=== PATIENT | female | born 1950 | race Caucasian/White ===

== ENCOUNTER → 2018-06-02 07:58 | Outpatient (CLI) | payer MEDICARE, OTHER, SELFPAY | PROVIDERS: Family Provider Internal Medicine; PCP Internal Medicine; Visit Provider Internal Medicine | DX: S22.008A Other fracture of unspecified thoracic vertebra, initial encounter for closed fracture (principal); S86.9 Injury of unspecified muscle and tendon at lower leg level; M25.562 Pain in left knee; X58.XXXA Exposure to other specified factors, initial encounter; Y93.9 Activity, unspecified; Y92.9 Unspecified place or not applicable; Y99.9 Unspecified external cause status; Z96.642 Presence of left artificial hip joint | CPT/HCPCS: 73700 ==

== ENCOUNTER → 2018-09-14 09:47 | Outpatient (CLI) | payer MEDICARE, OTHER, SELFPAY ==
--- NOTE | 2018-09-14 09:57 | BD_ITS ---
STUDY: DUAL ENERGY X-RAY ABSORPTIOMETRY / DXA REASON FOR EXAM: Female, 68 years old. The patient is postmenopausal. Loss of height. TECHNIQUE: Bone Mineral Density (BMD) measurements of lumbar spine and right hip were obtained. The patient is status post left hip replacement. COMPARISON: Comparison is made with prior study dated September 11, 2016. FINDINGS: Lumbar Spine (L1-L4): g/cm2 (0.911) / T-score (-2.4) / Z-score (-0.8) Findings are suggestive of osteopenia with a high fracture risk. Right Femur Total: g/cm2 (0.595) / T-score (-3.3) / Z-score (-1.9) Right Femoral Neck: g/cm2 (0.606) / T-score (-3.1) / Z-score (-1.5) The T-Scores on the most recent prior examination were: Lumbar Spine (L1-L4): There has been worsening of bone density since the previous examination. Left Femur Total: . Right Femur Total: which represents a worsening of 3.6%. BD/Dexa Bone Density Study IMPRESSION: The patient is considered osteoporotic as outlined below according to World Elvis Organization (WHO) criteria with a high fracture risk. There has been worsening of bone density since the previous examination. Reference Information: The T-score is the number of standard deviations above or below the standard which is normal for young adults at their peak bone mineral density. The World Health Organization (WHO) interprets the T-scores as follows: Above -1 Normal bone density Between -1 and -2.5 Osteopenia Equal to / or below -2.5 Osteoporosis As a practical clinical guideline, osteopenia may be graded as follows: Mild -1 through -1.5 Moderate -1.6 through -2.0 Severe -2.1 through -2.4 The Z-score is the number of standard deviations above or below age-matched controls. A Z-score of less than -1.5 would be considered abnormal. References: 1. NIH Osteoporosis and Related Bone Diseases http://www.osteo.org 2. International Society for Clinical Densitometry http://www.iscd.org 3. National Osteoporosis Foundation http://www.nof.org Electronically Signed: Chin Bell MD at 10:39 EST Tel [phone], Service support ,
== END ==
PROVIDERS: Family Provider Internal Medicine; PCP Internal Medicine; Visit Provider Internal Medicine
DX: Z78.0 Asymptomatic menopausal state (principal); M81.0 Age-related osteoporosis without current pathological fracture; M80.80XD Other osteoporosis with current pathological fracture, unspecified site, subsequent encounter for fracture with routine healing
CPT/HCPCS: 77080

== ENCOUNTER 2018-09-28 14:29 | Observation (INO) | payer MEDICARE, OTHER, SELFPAY ==
[2018-09-28] VITALS (9 sets, daily range): BP systolic 125–190; BP diastolic 72–102; PULSE 69–94; RESP 13–18; TEMP 36.5–36.8; O2SAT 94–99; BMI 29.9; BMI 29.2
--- NOTE | 2018-09-28 14:53 | RAD_ITS ---
STUDY: X-RAY CHEST REASON FOR EXAM: Female, 68 years old. Chest pain. TECHNIQUE: Single AP portable view of the chest. COMPARISON: Comparison is made with prior study dated June 06, 2017. FINDINGS: EKG electrodes are seen. Mild degree of increased linear markings at the lung bases slightly worse on the left side. These are new as compared to prior study and may represent early atelectasis and/or infiltrates. There is no demonstrated pleural abnormality. Normal size heart. Normal mediastinum and craig. Normal visualized pulmonary arteries. There is atherosclerotic tortuosity of the aortic arch and descending thoracic aorta. There is a dextroscoliosis of the thoracic spine. Normal visualized ribs, clavicles, and shoulders. There is no demonstrated abnormality of the visualized soft tissue structures of the upper abdomen. RAD/Chest 1 View (Portable) IMPRESSION: New increased linear markings with areas of confluence in the lower lobes new from prior examination. This is suggestive of atelectasis and/or early infiltrate. Electronically Signed: Chin Bell MD at 15:34 EST Tel [phone], Service support ,
--- NOTE | 2018-09-28 14:53 | EKG12_ITS ---
Test Reason : CP Blood Pressure : / mmHG Vent. Rate : 085 BPM Atrial Rate : 085 BPM P-R Int : 204 ms QRS Dur : 092 ms QT Int : 400 ms P-R-T Axes : 068 -43 044 degrees QTc Int : 476 ms Normal sinus rhythm Left axis deviation Possible Anterolateral infarct , age undetermined Abnormal ECG Confirmed by GOYO CONNELL, STEPHANIE ([id number]), proposal editor MARJORIE COCHRAN ([id number]) on 10/01/2018 1:49:22 PM Referred By: Enrique Lozano Confirmed By:STEPHANIE NANCE MD
--- NOTE | 2018-09-28 14:57 | ED.VISSUMM ---
- ER Visit Summary Date of Service: 09/28/18 Chief Complaint: Chest pain History of Present Illness: The patient is a 68 F who was driving around [address] this afternoon and had sudden onset of tunnel vision, heart racing, chest tightness, and shortness of breath. She pulled over to the side of the road and her symptoms slowly resolved after about 10 minutes. She still feels slightly lightheaded at this time. Past history is significant for hypertension and she was taken off her medications 2 years ago. She also has high cholesterol, GERD, hypothyroidism, kidney stones, and depression. Physical Examination: Vital signs on arrival include blood pressure of 190/98, otherwise unremarkable. At the time of my examination her systolic blood pressures in the low 140s. Head neck examination is normal. Heart is regular rate and rhythm without murmur. Lungs sounds are clear. Abdomen is soft and nontender. Lower extremity examination reveals no calf tenderness or edema. Test Results: EKG is sinus [address] change. CBC and chemistry studies are unremarkable. Urinalysis is normal. Troponin and TSH are both normal. D-dimer is normal at 0.44. Portable chest x-ray shows no increased linear markings in the lower lobes suggestive of atelectasis and/or early infiltrate. Emergency Department Course and Treatment: She is given aspirin and IV fluids. On repeat evaluation patient is resting comfortably. She has had no further episodes while here in the emergency room. Patient does have risk for cardiac disease. I suggested observation overnight for cycling of cardiac enzymes and observation for any arrhythmias. Hospitalist is on page at this time. Treatment Plan: [] Disposition: Admit Impression: Chest pain This note was generated with [employer] dictation software. It may contain incorrect words, spelling, and punctuation that were not noted in review of the chart prior to signing ED Disposition - Plan for ED Patient: Chief Complaint: Chest Pain Referrals: Carmel Goncalves MD [Primary Care Provider] -
[2018-09-28] MEDS: Aspirin 81 MG TAB.CHEW 324 MG PO (15:19)
[2018-09-28] MEDS: 0.9% Normal Saline 1,000 ML 150 ML IV (15:19)
[2018-09-28 15:29] LABS: Absolute Lymphocyte Count 2.03 X10^3/ul (0.83-4.51); Basophil# 0.03 X10^3/uL; Basophil% 0.3 % (0-1); Eosinophils% 1.1 % (0-5); Hematocrit 38.9 % (37-47); Hemoglobin 12.2 g/dl (12.0-15.0); Lymphocyte # 2.03 X10^3/ul (4.0); Lymphocyte % 23.3 % (19-41); Mean Corp Hgb Conc 31.4 g/gl (32-36); Mean Corpuscular Volume 89.2 fL (81-99); Mean Platelet Vol. 9.4 fl (6.2-12.0); Monocyte# 0.54 X10^3/uL; Monocyte% 6.2 % (0-10); Neutrophil # 6.02 X10^3/uL (2.7-7.7); Neutrophil % 69.1 % (47-70); POSITIVE COUNT NO; POSITIVE DIFFERENTIAL NO; POSITIVE MORPHOLOGY NO; Platelet Count 393 K/mm3 (150-450); RBC Distribution Width CV 13.7 % (11.6-14.6); RBC Distribution Width SD 44.9 fl (35.1-43.9); Red Blood Count 4.36 M/mm3 (4.2-5.4); White Blood Count 8.7 K/mm3 (4.4-11.0)
[2018-09-28 15:41] LABS: Bacteria 0 SEEN /hpf (None Seen); Mucous, Urine 0 SEEN /hpf (<or=2+); Red Blood Cells-Urine 0 SEEN /hpf (0-5); Squamous Epithelial Cells - UA 0 SEEN /hpf (5-10); White Blood Cells 0 SEEN /hpf (0-5)
[2018-09-28 15:43] LABS: D-Dimer Quantitative (DVT/PE) 0.44 FEU/ug/m (0.27-0.49)
[2018-09-28 15:44] LABS: Color, Urine Yellow (Yellow); Glucose, Dipstick Normal (Normal); Ketone-Dipstick Negative (Negative); Leukocyte Esterase-Dipstick Negative /ul (Negative); Nitrite-Dipstick Negative (Negative); Occult Blood-Urine Negative /ul (Negative); Protein-Dipstick Negative (Negative); Specific Gravity, Urine 1.005 (1.002-1.030); Urine Bilirubin Dipstick Negative (Negative); Urine Clarity Clear (Clear); Urine Urobilinogen Normal (Normal)
[2018-09-28 15:53] LABS: Anion Gap 8 (5-15); BUN 14 mg/dL (7-18); BUN/Creat Ratio 14.1 RATIO (10-20); Calcium,Total 8.9 mg/dL (8.5-10.1); Chloride 105 mmol/L (98-107); Creatinine, Serum 0.99 mg/dL (0.55-1.02); EST Glomerular Filtration Rate 59 mL/min (>60); Est Glom Filt Rate - Afr Amer 71 mL/min (>60); Estimated Creatinine Clearance 39.07 ml/min; Glucose 91 mg/dL (74-106); Potassium 3.5 mmol/L (3.5-5.1); Sodium Level 139 mmol/L (136-145); Thyroid Stim Hormone (TSH) 0.92 uIU/mL (0.358-3.74)
--- NOTE | 2018-09-28 17:01 | PCM.HP.STD ---
Problem List (1) Hypothyroidism Status: Chronic (2) Hyperlipidemia Status: Chronic (3) Shortness of breath Status: Acute (4) Chest pain Status: Acute History of Present Illness Date of Admission: 09/28/18 Chief Complaint: Chest pain The patient is a 68 year old F past medical history is none for hypertension, dyslipidemia who presents with chest pain. Patient symptoms occurred while she was driving pain was scribed as discomfort located in the retrosternal region radiating to her back. Patient also had associated shortness of breath as well as palpitations. She dresses herself to the ED initial set of cardiac enzymes and EKG came back unremarkable given her presentation admitted to a monitored bed for further management. Past Medical History Past Medical History (Chronic Problems): Chronic Problems (Last Updated 06/18/18 @ 16:03 by Rosemary Romeo) Hypothyroidism (Chronic) Hyperlipidemia (Chronic) Medical History: Medical History (Last Updated 06/18/18 @ 16:03 by Rosemary Romeo) Hypothyroidism (Chronic) E03.9 Hyperlipidemia (Chronic) E78.5 Depression F32.9 Osteoporosis M81.0 History of hysterectomy Z90.710 Allergies latex Allergy (Verified 12/02/16 13:56) COUGHING AND SORE THROAT Home Medications: Ambulatory Orders Medication Instructions Recorded Citalopram [Celexa] 40 mg PO QHS 09/24/16 Levothyroxine [Synthroid] 50 mcg PO DAILY 09/24/16 Pantoprazole Sodium [Protonix] 40 mg PO QHS 09/24/16 buPROPion SR [Wellbutrin Sr] 150 mg PO DAILY 09/24/16 Ergocalciferol [Vitamin D] 50,000 unit PO WHEATLEY 12/02/16 traMADol [Ultram (G)] 50 mg PO Q6H PRN PRN 12/02/16 ALPRAZolam [Xanax] 0.5 mg PO QHS 12/09/16 Acetaminophen [8 Hour] 1,300 mg PO PRN PRN 09/28/18 Fexofenadine HCl [Alvina Allergy] 180 mg PO DAILY 09/28/18 Meloxicam 15 mg PO DAILY 09/28/18 Tizanidine HCl [Zanaflex] 4 mg PO QHS 09/28/18 busPIRone [Buspar] 22.5 mg PO BID 09/28/18 Surgical History: Surgical History (Last Updated 06/18/18 @ 16:06 by Rosemary Romeo) History of appendectomy Z90.49 History of bladder suspension procedure Z98.890, Z87.448 History of bunionectomy Z98.890 History of cataract extraction Z98.49 History of right oophorectomy Z90.721 History of total left hip arthroplasty Z96.642 Smoking Status: Never smoker - *Family History Paternal Family History: Family History (Last Reviewed 09/28/18 @ 17:03 by Enrique Lozano MD) Father Hodgkins disease Sister Osteoporosis Review of Systems Constitutional: Denies: Anorexia, Chills, Fever, Night Sweats, Weight Change HEENT: Denies: Head Aches, Sinus Congestion, Sinus Drainage Cardiovascular: Reports: Chest Pain, Palpitations. Denies: Orthopnea, Paroxysmal Noc. Dyspnea Respiratory: Reports: Shortness of Breath. Denies: Cough Gastrointestinal: Denies: Abdominal Pain, Hematemesis, Hematochezia, Nausea, Melena, Vomiting Genitourinary: Denies: Dysuria, Frequency, Hematuria, Urgency Musculoskeletal: Denies: Joint Pain, Joint Tenderness Skin: Denies: Rash Neurological: Denies: Focal weakness, Numbness, Tingling Psychiatric: Denies: Homicidal Ideations, Suicidal Ideations Hematologic/ Lymphatic: Denies: Easy Bruising, Easy Bleeding VTE Information - Inpt Only VTE Present on Admission: No VTE Mechan Device Prophylaxis: Knee High CURLY Hose VTE Pharm Prophylaxis ordered?: Yes Patient Problems: Active and Suspected Problems (Last Updated 06/18/18 @ 16:03 by Rosemary Romeo) Chest pain (Acute) Objective: GENERAL: cooperative HEENT: Atraumatic; moist oral mucosa EYES; Anicteric, Normal Conjunctiva NECK; supple, normal thyroid, no distended JVD. RESPIRATORY: Diminished to auscultation bilaterally, CARDIOVASCULAR: Regular S1 S2, no audible murmurs GI: soft, non-tender, normoactive bowel sounds, : No Renal angle tenderness; EXTREMITIES: No edema, no clubbing, no cyanosis. MUSCULOSKELETAL: No Joint Tenderness; no muscle waisting NEURO: Awake; no lateralizing signs. SKIN: No Rash PSYCH; Normal affect - Physical Exam Vital Signs Temp Pulse Resp BP Pulse Ox 97.7 F L 74 13 146/81 H 98 09/28/18 14:31 09/28/18 16:18 09/28/18 16:18 09/28/18 16:18 09/28/18 16:18 Oxygen Delivery Method Room Air Weight: 69.5 kg Body Mass Index (BMI) 29.9 Laboratory Tests Past 24 Hrs 09/28/18 09/28/18 09/28/18 15:15 15:15 15:15 WBC 8.7 RBC 4.36 Hgb 12.2 Hct 38.9 MCV 89.2 MCH 28.0 MCHC 31.4 L RDW 13.7 RDW Differential 44.9 H Plt Count 393 MPV 9.4 Immature Gran % (Auto) 0.000 Neut % (Auto) 69.1 Lymph % (Auto) 23.3 [place] % (Auto) 6.2 Eos % (Auto) 1.1 Baso % (Auto) 0.3 Absolute Neuts (auto) 6.0 Absolute Lymphs (auto) 2.03 Total Counted Not Reportable D-Dimer Quant (PE/DVT) 0.44 Sodium 139 Potassium 3.5 Chloride 105 Carbon Dioxide 26.0 Anion Gap 8 BUN 14 Creatinine 0.99 Estim Creat Clear Calc 39.07 Est GFR (MDRD) Af Amer 71 Est GFR (MDRD) Non-Af 59 L BUN/Creatinine Ratio 14.1 Glucose 91 Calcium 8.9 Troponin I < 0.015 TSH 0.92 Urine Color Urine Clarity Urine pH Ur Specific [place] Urine Protein Urine Glucose (UA) Urine Ketones Urine Occult Blood Urine Nitrite Urine Bilirubin Urine Urobilinogen Ur Leukocyte Esterase Urine RBC Urine WBC Ur Squamous Epith Cells Urine Bacteria Urine Mucus 09/28/18 15:30 WBC RBC Hgb Hct MCV MCH MCHC RDW RDW Differential Plt Count MPV Immature Gran % (Auto) Neut % (Auto) Lymph % (Auto) [place] % (Auto) Eos % (Auto) Baso % (Auto) Absolute Neuts (auto) Absolute Lymphs (auto) Total Counted D-Dimer Quant (PE/DVT) Sodium Potassium Chloride Carbon Dioxide Anion Gap BUN Creatinine Estim Creat Clear Calc Est GFR (MDRD) Af Amer Est GFR (MDRD) Non-Af BUN/Creatinine Ratio Glucose Calcium Troponin I TSH Urine Color Yellow Urine Clarity Clear Urine pH 7.0 Ur Specific [place] 1.005 Urine Protein Negative Urine Glucose (UA) Normal Urine Ketones Negative Urine Occult Blood Negative Urine Nitrite Negative Urine Bilirubin Negative Urine Urobilinogen Normal Ur Leukocyte Esterase Negative Urine RBC 0 SEEN Urine WBC 0 SEEN Ur Squamous Epith Cells 0 SEEN Urine Bacteria 0 SEEN Urine Mucus 0 SEEN Assessment/Plan All Active Problems (Last Updated 06/18/18 @ 16:03 by Rosemary Romeo) Chest pain (Acute) Shortness of breath (Acute) Acute kidney injury (Resolved) Patient is a 68-year-old lady presented with chest pain 1. Chest pain: Patient has been admitted to a monitored bed with plans to rule out PR with serial cardiac enzymes. Patient to undergo a nuclear stress test if PR is ruled out 2. Hypertension-blood pressure controlled, home medications continued with dose adjustment as needed 3. Dyslipidemia 4. Anxiety disorder 5. Hypothyroidism-patient is on levothyroxine home dose continued 6. DVT prophylaxis SC Lovenox Clinical Impression(s) from Imaging Studies Chest X-Ray 09/28/18 14:53 IMPRESSION: New increased linear markings with areas of confluence in the lower lobes new from prior examination. This is suggestive of atelectasis and/or early infiltrate. Electronically Signed: Chin Bell MD at 15:34 EST Tel [phone], Service support , Code Visit OBSV E&M: [id number] Initial observation care L3
--- NOTE | 2018-09-28 17:30 | ECHOD_ITS ---
Reason For Study: CHEST PAIN Procedure This was a 2D Doppler, Color Flow transthoracic echocardiogram. Exam performed portable in patient room. Left Ventricle Normal size and thickness. The estimated ejection fraction is 75 %. Normal diastology for age. No regional wall motion abnormalities noted. Right Ventricle Normal size and thickness. Normal systolic function. Atria Normal left atrium. Normal right atrium. Normal atrial septum. Mitral Valve The mitral valve is structurally normal. No prolapse or stenosis seen. Tricuspid Valve Normal tricuspid valve. Mild (1+) tricuspid valve insufficiency. Right ventricular systolic pressure estimated to be 31 mmHg. Aortic Valve Normal aortic valve. Trisinus/trileaflet aortic valve. Trivial aortic valve insufficiency. Pulmonic Valve Normal pulmonic valve. Great Vessels Normal aortic root. Normal arch. Normal inferior vena cava. Inferior vena cava collapse with sniff. Pericardium/Pleural No pericardial effusion. MMode/2D Measurements & Calculations LVIDd: 4.7 cm IVSd: 1.0 cm Ao root diam: 3.3 cm LVIDs: 2.6 cm LVPWd: 1.2 cm RVDd: 3.3 cm FS: 44.0 % LAV(MOD-bp): 52.2 ml LVAd ap4: 28.1 cm2 SV(MOD-sp4): 51.3 ml LAV(MOD-bp) Indexed: 31.7 ml/m2 EDV(MOD-sp4): 85.6 ml LAV(MOD-sp2): 48.0 ml EDV(sp4-el): 90.8 ml LAV(MOD-sp4): 55.9 ml LVAs ap4: 15.9 cm2 ESV(MOD-sp4): 34.3 ml ESV(sp4-el): 34.2 ml EF(MOD-sp4): 59.9 % EF(sp4-el): 62.4 % SV(sp4-el): 56.6 ml LA A4 area: 19.3 cm2 LA dimension(2D): 3.8 cm RA A4 area: 16.6 cm2 Time Measurements MV dec time: 0.23 sec Doppler Measurements & Calculations MV E max nimesh: 66.9 cm/sec Lat Peak E' Nimesh: 6.8 cm/sec Med Peak E' Nimesh: 7.6 cm/sec MV A max nimesh: 54.0 cm/sec E/E' lat: 9.9 E/E' med: 8.9 MV E/A: 1.2 Ao V2 max: 115.7 cm/sec AI max nimesh: 436.6 cm/sec LV V1 max: 90.6 cm/sec Ao max P.4 mmHg AI max P.3 mmHg LV V1 max P.3 mmHg AI dec slope: 254.1 cm/sec2 AI P1/2t: 503.2 msec PA V2 max: 111.5 cm/sec TR max nimesh: 238.9 cm/sec TR max P.9 mmHg Interpretation Summary The estimated ejection fraction is 75 %. Normal diastology for age. Mild (1+) tricuspid valve insufficiency. Right ventricular systolic pressure estimated to be 31 mmHg. There is no comparison study available. Ordering Physician: Enrique Lozano Referring Physician: EUNICE JOE Performed By: Renae Marin, ROSCOE, RVT
[2018-09-28] MEDS: Citalopram 40 MG TABLET PO (22:36)
[2018-09-28] MEDS: ALPRAZolam 0.5 MG Tablet PO (22:36)
[2018-09-28] MEDS: Pantoprazole Sodium 40 MG Tablet PO (22:36)
[2018-09-28] MEDS: Acetaminophen 325 MG Tablet 650 MG PO (23:06)
[2018-09-29 03:29] VITALS: PULSE 67
[2018-09-29 04:09] VITALS: BP 129/64; PULSE 68; RESP 17; TEMP 36.5; O2SAT 96
[2018-09-29] MEDS: Levothyroxine 50 MCG Tablet PO (05:32)
[2018-09-29] MEDS: Aspirin E.C. 81 MG Tablet PO (05:32)
[2018-09-29] MEDS: 0.9% NaCl Peripheral Flush Adult/Peds IV (05:44)
--- NOTE | 2018-09-29 05:55 | EKG12_ITS ---
Test Reason : Blood Pressure : / mmHG Vent. Rate : 066 BPM Atrial Rate : 066 BPM P-R Int : 188 ms QRS Dur : 088 ms QT Int : 460 ms P-R-T Axes : 056 -46 -55 degrees QTc Int : 482 ms Normal sinus rhythm Left anterior fascicular block Cannot rule out Inferior infarct (masked by fascicular block?) , age undetermined T wave abnormality, consider anterior ischemia Abnormal ECG When compared with ECG of 28-SEP-2018 14:38, MANUAL COMPARISON REQUIRED, DATA IS UNCONFIRMED Confirmed by GOYO CONNELL, STEPHANIE ([id number]), features editor MARJORIE COCHRAN ([id number]) on 10/01/2018 2:11:40 PM Referred By: Enrique Lozano Confirmed By:STEPHANIE NANCE MD
[2018-09-29 08:23] VITALS: BP 122/59; PULSE 70; RESP 18; TEMP 36.8; O2SAT 94
[2018-09-29 08:35] VITALS: PULSE 72
[2018-09-29 08:37] LABS: Hematocrit 38.6 % (37-47); Hemoglobin 12.2 g/dl (12.0-15.0); Mean Corp Hgb Conc 31.6 g/gl (32-36); Mean Corpuscular Hgb 28.2 pg (27.0-32.0); Mean Corpuscular Volume 89.1 fL (81-99); Mean Platelet Vol. 9.5 fl (6.2-12.0); Platelet Count 372 K/mm3 (150-450); RBC Distribution Width CV 13.7 % (11.6-14.6); RBC Distribution Width SD 44.9 fl (35.1-43.9); Red Blood Count 4.33 M/mm3 (4.2-5.4)
[2018-09-29 08:40] LABS: Scan Indicated on CBC? Y/N NO
[2018-09-29 09:00] LABS: ALB/GLOB Ratio 1.1 RATIO (0.9-2.4); AST(SGOT) 12 U/L (15-37); Alanine Aminotransfer ALT/SGPT 20 U/L (13-56); Albumin, Serum 3.6 g/dL (3.2-5.0); Alkaline Phosphatase 80 U/L (45-117); Anion Gap 11 (5-15); BUN 14 mg/dL (7-18); BUN/Creat Ratio 14.3 RATIO (10-20); Bilirubin, Direct 0.11 mg/dL (0.00-0.30); Calcium,Total 8.6 mg/dL (8.5-10.1); Chloride 105 mmol/L (98-107); Creatinine, Serum 0.98 mg/dL (0.55-1.02); EST Glomerular Filtration Rate 60 mL/min (>60); Est Glom Filt Rate - Afr Amer 72 mL/min (>60); Estimated Creatinine Clearance 39.46 ml/min; Globulin 3.2 g/dL (2.2-4.2); Glucose 82 mg/dL (74-106); Potassium 3.9 mmol/L (3.5-5.1); Protein, Total 6.8 g/dL (6.4-8.2); Sodium Level 141 mmol/L (136-145)
[2018-09-29 10:33] LABS: International Normalized Ratio 0.9; Prothrombin Time (Protime)PT. 12.3 SECONDS (11.7-14.9)
[2018-09-29 10:36] LABS: Partial Thromboplast Time 33.5 Seconds (24.1-36.2)
--- NOTE | 2018-09-29 10:36 | STRESSREP ---
Stress Test Report Exercise myocardial perfusion stress test. 68-year-old lady with a history of chest pain. Medications, Xanax aspirin Mobic. Stress protocol: Resting EKG demonstrates normal sinus rhythm with a rate of 68 bpm normal intervals are noted resting blood pressure 148/92 mmHg. The patient exercised according to regular Noble protocol for a total duration of 3 minutes and 46 seconds. The maximum heart rate attained was 139 bpm which was 91% of maximum predicted heart rate the maximum workload was 5.5 metabolic equivalents. At rest there were no ST or T wave changes noted suggest ischemia peak exercise nonspecific ST-T wave changes were noted with normally the criteria for ischemia. No clinical angina was noted. The test was terminated due to leg fatigue. Resting blood pressure is 148/92 with a final blood pressure 180/94. Myocardial perfusion protocol. 11.2 mCi of technetium 99m sestamibi was injected at rest. Patient exercised according to regular Noble protocol for 3 minutes 46 seconds attaining 5.5 metabolic equivalents at peak exercise 32.7 mCi of technetium 99m sestamibi was injected stress images were obtained stress and rest images were reconstructed and compared in the short axis vertical long horizontal long axis. Gated images were also obtained next Perfusion SPECT analysis: Review of the stress images demonstrate normal uptake of tracer noted in all areas of the myocardium. The resting images similarly demonstrate normal uptake of tracer noted in all areas of the myocardium. No areas of reversibility are noted suggest ischemia. Gated SPECT analysis: The gated ejection fraction is over 80%. Conclusion: Normal exercise myocardial perfusion stress test at a low to moderate workload. Preserved ejection fraction.
[2018-09-29 11:02] VITALS: PULSE 71
--- NOTE | 2018-09-29 12:26 | DCINST_ITS ---
- Discharge Diagnoses Current Active Problems: Current Active and Chronic Problems (Last Updated 06/18/18 @ 16:03 by Rosemary Romeo) Chest pain (Acute) You will use the following diet at home:: No restrictions Instructions: ED Chest Pain NonCardiac Allergies/Adverse Reactions: Allergies latex Allergy (Verified 12/02/16 13:56) COUGHING AND SORE THROAT Medications to take at Discharge Citalopram [Celexa] 40 mg PO QHS 09/24/16 Levothyroxine [Synthroid] 50 mcg PO DAILY 09/24/16 Pantoprazole Sodium [Protonix] 40 mg PO QHS 09/24/16 buPROPion SR [Wellbutrin SR (150mg tablets)] 150 mg PO DAILY 09/24/16 Ergocalciferol [Vitamin D] 50,000 unit PO [place]AT[place] 12/02/16 ALPRAZolam [Xanax] 0.5 mg PO QHS 12/09/16 Acetaminophen [8 Hour] 1,300 mg PO PRN PRN 09/28/18 Fexofenadine HCl [Alvina Allergy] 180 mg PO DAILY 09/28/18 Meloxicam 15 mg PO DAILY 09/28/18 Tizanidine HCl [Zanaflex] 4 mg PO QHS 09/28/18 busPIRone [Buspar] 15 mg PO DAILY 09/28/18 Primary Care Physician: Carmel Goncalves MD [Primary Care Provider] - Test Results: Test results from this visit will be discussed in further detail at your follow- up appointment, if applicable. Proposed Discharge Date: 09/29/18
--- NOTE | 2018-09-29 12:26 | DS.PCM_ITS ---
Discharge Date and Diagnosis Date of Admission: 09/28/18 Date of Discharge: 09/29/18 - Primary Discharge Diagnosis Active and Suspected Problems (Last Updated 06/18/18 @ 16:03 by Rosemary Romeo) Chest pain (Acute) - Secondary Discharge Diagnosis Chronic Problems (Last Updated 06/18/18 @ 16:03 by Rosemary Romeo) Hypothyroidism (Chronic) Hyperlipidemia (Chronic) Hospital Course and Treatment Imaging Results: 09/29/18 05:55 Nuclear Stress Test - Treadmil [NM] AM (NON MEDS) Summary of Care Provided: Patient is a 68-year-old lady presented with chest pain 1. Chest pain: Patient has been admitted to a monitored bed rule out CO with serial cardiac enzymes subsequently underwent a nuclear stress test which is negative for stress-induced ischemia discharge home instructed to follow-up with PCP for subsequent care 2. Hypertension-blood pressure controlled, home medications continued with dose adjustment as needed 3. Dyslipidemia 4. Anxiety disorder 5. Hypothyroidism-patient is on levothyroxine home dose continued 6. DVT prophylaxis SC Lovenox - Physical Exam General: Alert HEENT: Atraumatic Oral: Moist Mucosa Neck: Supple Neurological: Neuro grossly intact Psych/Mental Status: Normal Affect Vital Signs Temp Pulse Resp BP Pulse Ox 98.3 F 71 18 122/59 H 94 09/29/18 08:23 09/29/18 11:02 09/29/18 08:23 09/29/18 08:23 09/29/18 08:23 Oxygen Delivery Method Room Air Weight: 67.9 kg Body Mass Index (BMI) 29.2 Intake and Output for Last 24 Hours 09/27/18 09/28/18 09/29/18 23:59 23:59 23:59 Intake Total 240 / 240 Balance 240 / 240 Laboratory Tests Past 24 Hrs 09/28/18 09/28/18 09/28/18 15:15 15:15 15:15 WBC 8.7 RBC 4.36 Hgb 12.2 Hct 38.9 MCV 89.2 MCH 28.0 MCHC 31.4 L RDW 13.7 RDW Differential 44.9 H Plt Count 393 MPV 9.4 Immature Gran % (Auto) 0.000 Neut % (Auto) 69.1 Lymph % (Auto) 23.3 [place] % (Auto) 6.2 Eos % (Auto) 1.1 Baso % (Auto) 0.3 Absolute Neuts (auto) 6.0 Absolute Lymphs (auto) 2.03 Total Counted Not Reportable PT INR APTT D-Dimer Quant (PE/DVT) 0.44 Sodium 139 Potassium 3.5 Chloride 105 Carbon Dioxide 26.0 Anion Gap 8 BUN 14 Creatinine 0.99 Estim Creat Clear Calc 39.07 Est GFR (MDRD) Af Amer 71 Est GFR (MDRD) Non-Af 59 L BUN/Creatinine Ratio 14.1 Glucose 91 Calcium 8.9 Total Bilirubin Direct Bilirubin AST ALT Alkaline Phosphatase Troponin I < 0.015 Total Protein Albumin Globulin Albumin/Globulin Ratio TSH 0.92 Urine Color Urine Clarity Urine pH Ur Specific [place] Urine Protein Urine Glucose (UA) Urine Ketones Urine Occult Blood Urine Nitrite Urine Bilirubin Urine Urobilinogen Ur Leukocyte Esterase Urine RBC Urine WBC Ur Squamous Epith Cells Urine Bacteria Urine Mucus 09/28/18 09/28/18 09/28/18 15:30 18:10 21:05 WBC RBC Hgb Hct MCV MCH MCHC RDW RDW Differential Plt Count MPV Immature Gran % (Auto) Neut % (Auto) Lymph % (Auto) [place] % (Auto) Eos % (Auto) Baso % (Auto) Absolute Neuts (auto) Absolute Lymphs (auto) Total Counted PT INR APTT D-Dimer Quant (PE/DVT) Sodium Potassium Chloride Carbon Dioxide Anion Gap BUN Creatinine Estim Creat Clear Calc Est GFR (MDRD) Af Amer Est GFR (MDRD) Non-Af BUN/Creatinine Ratio Glucose Calcium Total Bilirubin Direct Bilirubin AST ALT Alkaline Phosphatase Troponin I < 0.015 < 0.015 Total Protein Albumin Globulin Albumin/Globulin Ratio TSH Urine Color Yellow Urine Clarity Clear Urine pH 7.0 Ur Specific [place] 1.005 Urine Protein Negative Urine Glucose (UA) Normal Urine Ketones Negative Urine Occult Blood Negative Urine Nitrite Negative Urine Bilirubin Negative Urine Urobilinogen Normal Ur Leukocyte Esterase Negative Urine RBC 0 SEEN Urine WBC 0 SEEN Ur Squamous Epith Cells 0 SEEN Urine Bacteria 0 SEEN Urine Mucus 0 SEEN 09/29/18 09/29/18 09/29/18 08:10 08:10 08:10 WBC 5.0 RBC 4.33 Hgb 12.2 Hct 38.6 MCV 89.1 MCH 28.2 MCHC 31.6 L RDW 13.7 RDW Differential 44.9 H Plt Count 372 MPV 9.5 Immature Gran % (Auto) Neut % (Auto) Lymph % (Auto) [place] % (Auto) Eos % (Auto) Baso % (Auto) Absolute Neuts (auto) Absolute Lymphs (auto) Total Counted PT 12.3 INR 0.9 APTT 33.5 D-Dimer Quant (PE/DVT) Sodium 141 Potassium 3.9 Chloride 105 Carbon Dioxide 25.0 Anion Gap 11 BUN 14 Creatinine 0.98 Estim Creat Clear Calc 39.46 Est GFR (MDRD) Af Amer 72 Est GFR (MDRD) Non-Af 60 BUN/Creatinine Ratio 14.3 Glucose 82 Calcium 8.6 Total Bilirubin 0.30 Direct Bilirubin 0.11 AST 12 L ALT 20 Alkaline Phosphatase 80 Troponin I Total Protein 6.8 Albumin 3.6 Globulin 3.2 Albumin/Globulin Ratio 1.1 TSH Urine Color Urine Clarity Urine pH Ur Specific [place] Urine Protein Urine Glucose (UA) Urine Ketones Urine Occult Blood Urine Nitrite Urine Bilirubin Urine Urobilinogen Ur Leukocyte Esterase Urine RBC Urine WBC Ur Squamous Epith Cells Urine Bacteria Urine Mucus Discharge Diet: No Restrictions Home Medications: Medications to take at Discharge Citalopram [Celexa] 40 mg PO QHS 09/24/16 Levothyroxine [Synthroid] 50 mcg PO DAILY 09/24/16 Pantoprazole Sodium [Protonix] 40 mg PO QHS 09/24/16 buPROPion SR [Wellbutrin SR (150mg tablets)] 150 mg PO DAILY 09/24/16 Ergocalciferol [Vitamin D] 50,000 unit PO [place] 12/02/16 ALPRAZolam [Xanax] 0.5 mg PO QHS 12/09/16 Acetaminophen [8 Hour] 1,300 mg PO PRN PRN 09/28/18 Fexofenadine HCl [[place] Allergy] 180 mg PO DAILY 09/28/18 Meloxicam 15 mg PO DAILY 09/28/18 Tizanidine HCl [Zanaflex] 4 mg PO QHS 09/28/18 busPIRone [Buspar] 15 mg PO DAILY 09/28/18 Primary Care Physician: Carmel Goncalves MD [Primary Care Provider] - Patient Instructions: ED Chest Pain NonCardiac Medical Necessity - Tobacco Use Smoking Status: Never smoker Meaningful Use Info Meaningful Use Diagnoses (Choose all that apply): None applicable Code Visit OBSV E&M: 77305 Observation care discharge
[2018-09-29 13:15] VITALS: BP 144/77; PULSE 86; RESP 18; TEMP 36.7; O2SAT 100
--- OUTSIDE RECORDS SUMMARY | 2018-12-31 03:33 | XMS RPT_ITS ---
:1950 Author Organization OHIP Care Team Providers Name Role Phone HEATH EUNICE Pierce Attending Unavailable TALAMPAS, EUNICE D Referring Unavailable TALAMPAS, EUNICE D Referring Unavailable TALAMPAS, EUNICE D Referring Unavailable LEAH ALMEIDA (SINGLE NEEDLE OPERATOR) Attending Unavailable TALAMPAS, EUNICE D Referring Unavailable BARB MENDIOLA (PAC) Attending Unavailable TALAMPAS, EUNICE D Referring Unavailable TALAMPAS, EUNICE D Referring Unavailable TALAMPAS, EUNICE D Referring Unavailable TALAMPAS, EUNICE D Attending Unavailable TALAMPAS, EUNICE D Attending Unavailable TALAMPAS, EUNICE D Referring Unavailable TALAMPAS, EUNICE D Attending Unavailable TALAMPAS, EUNICE D Referring Unavailable TALAMPAS, EUNICE D Referring Unavailable Taldereckas, Eunice Primary Care Unavailable Barb Lozano Admitting Unavailable Barb Lozano Attending Unavailable Barb Lozano Referring Unavailable Kittoe, Barb Admitting Unavailable Kittoe, Barb Attending Unavailable Kittoe, Barb Referring Unavailable Talampas, Eunice Primary Care Unavailable Kittoe, Barb Consulting Unavailable Kittoe, Barb Admitting Unavailable Kittoe, Barb Attending Unavailable Kittoe, Barb Referring Unavailable Talampas, Eunice Primary Care Unavailable Kittoe, Barb Consulting Unavailable Hannah, Ar Attending Unavailable Kittoe, Barb Referring Unavailable Talampas, Eunice Attending Unavailable Talampas, Eunice Referring Unavailable Talampas, Eunice Primary Care Unavailable Nolt, Rosemary Attending Unavailable Roof, Glenn H Attending Unavailable Talampas, Eunice Referring Unavailable Talampas, Eunice Attending Unavailable Talampas, Eunice Primary Care Unavailable PROBLEMS PROBLEMS DATE TYPE CONDITION / CODE ATTENDING STATUS SOURCE 10/14/2018 Active Transient visual NA Active [facility] loss, bilateral / [facility] H53.123(ICD-10) Repository 10/21/2018 Unknown R07.9 - Chest Hannah, Ar Active [facility] pain, unspecified Community / R07.9(ICD-10) Hospital Repository 09/14/2018 Unknown M81.0 - Talampas, Eunice Active [facility] without current Repository pathological fracture / M81.0(ICD-10) 05/22/2018 Active Pain in right hip NA Active [facility] / M25.551(ICD-10) [facility] Repository 04/30/2018 Active Pain in left knee NA Active [facility] / M25.562(ICD-10) [facility] Repository 04/30/2018 Active Contusion of NA Active [facility] unspecified back [facility] wall of thorax, Repository sequela / S20.229S(ICD-10) PROCEDURES PROCEDURES No Procedure Records FoundRESULTS RESULTS PROGRESS Observed: 10/14/2018 Status: COMPLETED Source: [place] 2:21 PM [facility] REPOSITORY HNO ID: [id number] Author: Aruna Mann LPN Service: (none) Author Type: (none) Type: Progress Notes Filed: 10/14/2018 3:09 PM Note Text: Patient presents for Prolia injection. Denies any problems at this time. Patient instructed on any SE of medication, verbalized understanding and agreed to proceed with treatment. Tolerated injection well. Aruna Mann LPN CNNURSE Observed: 10/14/2018 Status: COMPLETED Source: [place] 2:15 PM [facility] [place] REPOSITORY Nurse Visit (FAMPWS) JEYSONNELLA S ([id number]) 1950 F Date Time Provider Department 10/14/18 2:15 PM [place] [facility] During your visit today, we recorded the following information about you: Aruna Mann LPN 10/14/2018 3:09 PM Signed Patient presents for Prolia injection. Denies any problems at this time. Patient instructed on any SE of medication, verbalized understanding and agreed to proceed with treatment. Tolerated injection well. Aruna Mann LPN Referring Provider: EUNICE GONCALVES [[id number]] Allergies As of Date: 10/14/2018 Noted Allergy Reaction LATEX 04/06/2007 2 - Rash 9 - Itching ACTONEL (RISEDRONATE SODIUM) 10/30/2005 8 - GI Upset FOSAMAX (ALENDRONATE SODIUM) 10/30/2005 8 - GI Upset Date Reviewed: 10/07/2018 Reviewed by: Nancy Quinn LPN - Fully Assessed Reason for Visit: Imm/Inj [58] Primary Visit Diagnosis:Age related osteoporosis, unspecified pathological fracture presence [M81.0] Prescriptions as of 10/14/2018 Sig: BENZONATATE 200 MG CAPSULE Take 1 capsule by mouth three* LOSARTAN 25 MG TABLET As directed ALPRAZOLAM 0.5 MG TABLET Take 1 tablet by mouth at bed* BUSPIRONE 15 MG TABLET TAKE ONE AND ONE-HALF TABLETS B* TRAMADOL 50 MG TABLET Take 1 tablet by mouth twice * FLONASE NASAL Use in the nose. ACETAMINOPHEN 325 MG TABLET Take 650 mg by mouth every 6 * BUPROPION HCL SR 150 MG TABLE* Take 1 tablet by mouth twice * CHOLECALCIFEROL (VITAMIN D3) * TAKE ONE CAPSULE BY MOUTH ONC* MELOXICAM 15 MG TABLET Take 1 tablet by mouth once d* LEVOTHYROXINE 50 MCG TABLET Take 1 tablet by mouth once d* CITALOPRAM 40 MG TABLET TAKE ONE TABLET BY MOUTH ONCE* PANTOPRAZOLE 40 MG TABLET,DEL* TAKE 1 TABLET BY MOUTH DAILY * TIZANIDINE 4 MG TABLET Take 1 tablet by mouth twice * HYDROXYZINE HCL 25 MG TABLET Take 1 tablet by mouth three * CELECOXIB 200 MG CAPSULE Take 1 capsule by mouth once * Patient not taking: Reported on 06/08/2018 CHOLECALCIFEROL (VITAMIN D3) * Take 1 capsule by mouth once * Patient not taking: Reported on 10/07/2018 MELATONIN 5 MG TABLET Take 1 tablet by mouth daily * FEXOFENADINE 180 MG TABLET Take 180 mg by mouth once carol ann* CALCIUM CARBONATE 600 MG (1,5* Take 1 tablet by mouth twice * * FISH OIL 1,000 MG CAPSULE 2 daily * VITAMIN B-12 1,000 MCG TABLET Take one(1) tablet daily. 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 Anxiety [F41.9] T12 compression fracture (HCC) [S22.080A] INVALID FOR* Cervical disc disorder of mid-cervical region [*INVALID FOR* Spinal stenosis, lumbar region, without neuroge*INVALID FOR* Encounter Status:Closed by ARUNA MANN LPN on 10/14/18 PROGRESS Observed: 10/07/2018 Status: COMPLETED Source: [place] 6:11 PM [facility] REPOSITORY HNO ID: [id number] Author: Eunice Goncalves Service: (none) Author Type: Physician Type: Progress Notes Filed: 10/07/2018 6:11 PM Note Text: Patient seen today PROGRESS Observed: 10/07/2018 Status: COMPLETED Source: [place] 9:15 AM [facility] [place] REPOSITORY HNO ID: [id number] Author: Tesha Tse LPN Service: (none) Author Type: (none) Type: Progress Notes Filed: 10/07/2018 9:40 AM Note Text: Place order for Prolia. PROGRESS Observed: 10/07/2018 Status: COMPLETED Source: [place] 8:17 AM [facility] [place] REPOSITORY HNO ID: [id number] Author: Eunice Goncalves Service: (none) Author Type: Physician Type: Progress Notes Filed: 10/07/2018 9:40 AM Note Text: Transitional Care Management TCM Eligibility Documentation The following information was gathered during the initial Patient Outreach Encounter. Date of Outreach: 09/30/2018 Outreach Attempt 1: Contact Made Date of Discharge 09/29/2018 Some recent data might be hidden Discharge diagnosis: Chest pain--ruled out for [place]; hypertension Discharge medication list reconciliation completed: Yes Patient presents with: Hospital Follow Up SUBJECTIVE: Nella Morris is a 68 year old year old lady here today for follow up TCM appointment for review of medical conditions. Admitted for chest pain work up. had high BP. Noted vision went out like a blind being lowered while was driving; lasted a minute or two.. No headache. Heart was racing. SOB. Chest tightness. lasted till got home. Went to ER 45 minutes later. Chest tightness persisted. Got sick day after discharged from [facility]. Cough and lost her voice. Sinus pain and pressure. Cough productive. Cough keeping up at night. Lots of sinus drainage. Today's worst. Not wheezing. Also sore throat. Noted decided on getting Prolia here instead of going to [place] (Dr. Bowles). 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 ALPRAZolam (XANAX) 0.5 mg tablet Take 1 tablet by mouth at bedtime as needed for Anxiety for up to 90 days. May take whole pill during day as needed for Anxiety and SOB related to throat/laryngospasm buPROPion SR (ZYBAN SR; WELLBUTRIN SR) 150 mg 12 hr tablet Take 1 tablet by mouth twice daily. As directed busPIRone (BUSPAR) 15 mg tablet TAKE ONE AND ONE-HALF TABLETS BY MOUTH TWICE DAILY calcium carbonate 600 mg-cholecalciferol 200 units (CALCIUM 600 + D,3,) 600 mg(1,500mg) -200 unit Tab Take 1 tablet by mouth twice daily. cholecalciferol, Vitamin D3, (VITAMIN D3) 50,000 unit cap capsule TAKE ONE CAPSULE BY MOUTH ONCE A WEEK citalopram (CELEXA) 40 mg tablet TAKE ONE TABLET BY MOUTH ONCE DAILY fexofenadine (ALVINA) 180 mg tablet Take 180 mg by mouth once daily. fluticasone propionate (FLONASE NASAL) Use in the nose. hydrOXYzine HCl (ATARAX) 25 mg tablet Take 1 tablet by mouth three times daily as needed for Itching/Rash. FOR ITCHING levothyroxine (SYNTHROID) 50 mcg tablet Take 1 tablet by mouth once daily. Melatonin 5 mg tab Take 1 tablet by mouth daily at bedtime. meloxicam (MOBIC) 15 mg tablet Take 1 tablet by mouth once daily. Take with food. pantoprazole DR (PROTONIX) 40 mg tablet TAKE 1 TABLET BY MOUTH DAILY 30 MINUTES BEFORE BREAKFAST, TAKE ON AN EMPTY STOMACH tiZANidine (ZANAFLEX) 4 mg tablet Take 1 tablet by mouth twice daily as needed. celecoxib (CELEBREX) 200 mg capsule Take 1 capsule by mouth once daily. (Patient not taking: Reported on 06/08/2018 ) cholecalciferol, Vitamin D3, (VITAMIN D3) 50,000 unit cap capsule Take 1 capsule by mouth once each week. (Patient not taking: Reported on 10/07/2018 ) cyanocobalamin(VITAMIN B-12 1,000 MCG TAB) Take one(1) tablet daily. losartan (COZAAR) 25 mg tablet On Hold because of low blood pressures and fatigue (Patient not taking: Reported on 06/08/2018 ) omega-3 fatty acids/vitamin e(FISH OIL 1,000 MG CAP) 2 daily traMADol (ULTRAM) 50 mg tablet Take 1 tablet by mouth twice daily as needed for up to 60 days. No current facility-administered medications for this visit. OBJECTIVE: BP 144/92 Pulse 60 Resp 20 Wt 69.4 kg (153 lb) BMI 29.88 kg/m? Patient is alert, oriented times 3, no apparent distress, affect is bright, reactive. Voice hoarse; barely audible Last 5 Encounter BP Readings: Date: BP: 10/07/2018 144/92 06/18/2018 134/90 06/08/2018 143/82 04/30/2018 138/88 12/11/2017 130/62 Last 5 Encounter Wt Readings: Date: Wt: 10/07/2018 69.4 kg (153 lb) 06/18/2018 69.4 kg (153 lb) 06/08/2018 69.9 kg (154 lb) 04/30/2018 69.9 kg (154 lb) 12/11/2017 69.4 kg (153 lb) 10/07/18 0810 BP: 144/92 Pulse: 60 Resp: 20 Weight: 69.4 kg (153 lb) Sinus tenderness maxillary TMs normal Throat a little red but no exudates Neck: no lymphadenopathy Heart: Regular rate, rhythm, no murmurs, gallops, rubs. Lungs: Clear to auscultation, bilaterally, breathing non labored. Ext: No cyanosis, clubbing, or edema. Reviewed report from Dr. Bowles and study that had shown worsening osteoporosis, Labs reviewed from [facility] along with rest of studies. ASSESSMENT AND PLAN: Encounter Diagnosis ICD-10-CM 1. Transient visual loss of both eyes H53.123 US CAROTID ARTERIES [facility] vision went out like a dark curtain descending over visual field; lasted about a minute 2. Acute non-recurrent sinusitis, unspecified location J01.90 azithromycin (ZITHROMAX Z-PATRICK) 250 mg tablet Has Flonase already 3. Acute laryngitis J04.0 azithromycin (ZITHROMAX Z-PATRICK) 250 mg tablet Benzonatate (TESSALON) 200 mg capsule 4. Acute bronchitis, unspecified organism J20.9 azithromycin (ZITHROMAX Z-PATRICK) 250 mg tablet Benzonatate (TESSALON) 200 mg capsule 5. Age related osteoporosis, unspecified pathological fracture presence M81.0 denosumab 60 mg injection (PROLIA) 6. Dysfunction of both eustachian tubes H69.83 Will use Flonase 7. Atypical chest pain R07.89 8. Essential hypertension I10 losartan (COZAAR) 25 mg tablet Treating for acute illness that developed after hospital stay. Stress test and echo were fine. Wonder if chest pain was part of viral prodrome, but noted episode of transient visual loss that was not directed addressed during hospital stay (thought in ER report they described as tunnel vision rather than what she described to me). Will get carotid US to extend the work up. Further evaluation and treatment as indicated. Since BP still up, will resume losartan--was up to 25 mg twice daily until BP got too low. Will titrate dose as needed. May start with 1 pill daily and will adjust as needed. Also addressed need for Prolia for worsening osteoporosis with history of compression fracture in the summer when fell. Dr. Bowles discussed options with patient and she chose Prolia--preferes to get done here for convenience. Scheduled for October. Already had labs done through [facility] for prior to Prolia. Above issues addressed with patient. Patient involved in shared decision making for management of medical issues. History and medications reviewed. Epic updated as needed Refills taken care of and meds adjusted as indicated after reviewed history, exam and labs. Health Maintenance reviewed. Updated record and/or ordered tests as recorded. Encouraged on efforts at healthy diet and regular exercise and adequate sleep. Plans to go to [place] for a couple weeks at least. The majority of the visit was spent counseling and/or coordinating care for the patient. Neks-bl-agzi time was at least 30 minutes. Eunice Goncalves MD CNOV Observed: 10/07/2018 Status: COMPLETED Source: [place] 8:00 AM [facility] [place] REPOSITORY Office Visit (INTMWS) NELLA MORRIS ([id number]) 1950 F Date Time Provider Department 10/07/18 8:00 AM EUNICE GONCALVES During your visit today, we recorded the following information about you: Pulse Respiration Blood pressure Weight 60/minute 20/minute 140/82 69.4 kg Eunice Goncalves MD 10/07/2018 9:40 AM Signed Transitional Care Management TCM Eligibility Documentation The following information was gathered during the initial Patient Outreach Encounter. Date of Outreach: 09/30/2018 Outreach Attempt 1: Contact Made Date of Discharge 09/29/2018 Some recent data might be hidden Discharge diagnosis: Chest pain--ruled out for [place]; hypertension Discharge medication list reconciliation completed: Yes Patient presents with: Hospital Follow Up SUBJECTIVE: Nella Morris is a 68 year old year old lady here today for follow up TCM appointment for review of medical conditions. Admitted for chest pain work up. had high BP. Noted vision went out like a blind being lowered while was driving; lasted a minute or two.. No headache. Heart was racing. SOB. Chest tightness. lasted till got home. Went to ER 45 minutes later. Chest tightness persisted. Got sick day after discharged from [facility]. Cough and lost her voice. Sinus pain and pressure. Cough productive. Cough keeping up at night. Lots of sinus drainage. Today's worst. Not wheezing. Also sore throat. Noted decided on getting Prolia here instead of going to [place] (Dr. Bowles). 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 ALPRAZolam (XANAX) 0.5 mg tablet Take 1 tablet by mouth at bedtime as needed for Anxiety for up to 90 days. May take whole pill during day as needed for Anxiety and SOB related to throat/laryngospasm buPROPion SR (ZYBAN SR; WELLBUTRIN SR) 150 mg 12 hr tablet Take 1 tablet by mouth twice daily. As directed busPIRone (BUSPAR) 15 mg tablet TAKE ONE AND ONE-HALF TABLETS BY MOUTH TWICE DAILY calcium carbonate 600 mg-cholecalciferol 200 units (CALCIUM 600 + D,3,) 600 mg(1,500mg) -200 unit Tab Take 1 tablet by mouth twice daily. cholecalciferol, Vitamin D3, (VITAMIN D3) 50,000 unit cap capsule TAKE ONE CAPSULE BY MOUTH ONCE A WEEK citalopram (CELEXA) 40 mg tablet TAKE ONE TABLET BY MOUTH ONCE DAILY fexofenadine (ALVINA) 180 mg tablet Take 180 mg by mouth once daily. fluticasone propionate (FLONASE NASAL) Use in the nose. hydrOXYzine HCl (ATARAX) 25 mg tablet Take 1 tablet by mouth three times daily as needed for Itching/Rash. FOR ITCHING levothyroxine (SYNTHROID) 50 mcg tablet Take 1 tablet by mouth once daily. Melatonin 5 mg tab Take 1 tablet by mouth daily at bedtime. meloxicam (MOBIC) 15 mg tablet Take 1 tablet by mouth once daily. Take with food. pantoprazole DR (PROTONIX) 40 mg tablet TAKE 1 TABLET BY MOUTH DAILY 30 MINUTES BEFORE BREAKFAST, TAKE ON AN EMPTY STOMACH tiZANidine (ZANAFLEX) 4 mg tablet Take 1 tablet by mouth twice daily as needed. celecoxib (CELEBREX) 200 mg capsule Take 1 capsule by mouth once daily. (Patient not taking: Reported on 06/08/2018 ) cholecalciferol, Vitamin D3, (VITAMIN D3) 50,000 unit cap capsule Take 1 capsule by mouth once each week. (Patient not taking: Reported on 10/07/2018 ) cyanocobalamin(VITAMIN B-12 1,000 MCG TAB) Take one(1) tablet daily. losartan (COZAAR) 25 mg tablet On Hold because of low blood pressures and fatigue (Patient not taking: Reported on 06/08/2018 ) omega-3 fatty acids/vitamin e(FISH OIL 1,000 MG CAP) 2 daily traMADol (ULTRAM) 50 mg tablet Take 1 tablet by mouth twice daily as needed for up to 60 days. No current facility-administered medications for this visit. OBJECTIVE: BP 144/92 Pulse 60 Resp 20 Wt 69.4 kg (153 lb) BMI 29.88 kg/m? Patient is alert, oriented times 3, no apparent distress, affect is bright, reactive. Voice hoarse; barely audible Last 5 Encounter BP Readings: Date: BP: 10/07/2018 144/92 06/18/2018 134/90 06/08/2018 143/82 04/30/2018 138/88 12/11/2017 130/62 Last 5 Encounter Wt Readings: Date: Wt: 10/07/2018 69.4 kg (153 lb) 06/18/2018 69.4 kg (153 lb) 06/08/2018 69.9 kg (154 lb) 04/30/2018 69.9 kg (154 lb) 12/11/2017 69.4 kg (153 lb) 10/07/18 0810 BP: 144/92 Pulse: 60 Resp: 20 Weight: 69.4 kg (153 lb) Sinus tenderness maxillary TMs normal Throat a little red but no exudates Neck: no lymphadenopathy Heart: Regular rate, rhythm, no murmurs, gallops, rubs. Lungs: Clear to auscultation, bilaterally, breathing non labored. Ext: No cyanosis, clubbing, or edema. Reviewed report from Dr. Bowles and study that had shown worsening osteoporosis, Labs reviewed from [facility] along with rest of studies. ASSESSMENT AND PLAN: Encounter Diagnosis ICD-10-CM 1. Transient visual loss of both eyes H53.123 US CAROTID ARTERIES [facility] vision went out like a dark curtain descending over visual field; lasted about a minute 2. Acute non-recurrent sinusitis, unspecified location J01.90 azithromycin (ZITHROMAX Z-PATRICK) 250 mg tablet Has Flonase already 3. Acute laryngitis J04.0 azithromycin (ZITHROMAX Z-PATRICK) 250 mg tablet Benzonatate (TESSALON) 200 mg capsule 4. Acute bronchitis, unspecified organism J20.9 azithromycin (ZITHROMAX Z-PATRICK) 250 mg tablet Benzonatate (TESSALON) 200 mg capsule 5. Age related osteoporosis, unspecified pathological fracture presence M81.0 denosumab 60 mg injection (PROLIA) 6. Dysfunction of both eustachian tubes H69.83 Will use Flonase 7. Atypical chest pain R07.89 8. Essential hypertension I10 losartan (COZAAR) 25 mg tablet Treating for acute illness that developed after hospital stay. Stress test and echo were fine. Wonder if chest pain was part of viral prodrome, but noted episode of transient visual loss that was not directed addressed during hospital stay (thought in ER report they described as tunnel vision rather than what she described to me). Will get carotid US to extend the work up. Further evaluation and treatment as indicated. Since BP still up, will resume losartan--was up to 25 mg twice daily until BP got too low. Will titrate dose as needed. May start with 1 pill daily and will adjust as needed. Also addressed need for Prolia for worsening osteoporosis with history of compression fracture in the summer when fell. Dr. Bowles discussed options with patient and she chose Prolia--preferes to get done here for convenience. Scheduled for October. Already had labs done through [facility] for prior to Prolia. Above issues addressed with patient. Patient involved in shared decision making for management of medical issues. History and medications reviewed. Epic updated as needed Refills taken care of and meds adjusted as indicated after reviewed history, exam and labs. Health Maintenance reviewed. Updated record and/or ordered tests as recorded. Encouraged on efforts at healthy diet and regular exercise and adequate sleep. Plans to go to [place] for a couple weeks at least. The majority of the visit was spent counseling and/or coordinating care for the patient. Xatz-xh-pzsr time was at least 30 minutes. MD Tesha Cifuentes LPN 10/07/2018 9:[address] order for Prolia. Referring Provider: EUNICE GONCALVES [[id number]] Allergies As of Date: 10/07/2018 Noted Allergy Reaction LATEX 04/06/2007 2 - Rash 9 - Itching ACTONEL (RISEDRONATE SODIUM) 10/30/2005 8 - GI Upset FOSAMAX (ALENDRONATE SODIUM) 10/30/2005 8 - GI Upset Date Reviewed: 10/07/2018 Reviewed by: Nancy Quinn LPN - Fully Assessed Reason for Visit: Hospital Follow Up [177] Primary Visit Diagnosis:Transient visual loss of both eyes [H53.123] Comment:vision went out like a dark curtain descending over visual field; lasted about a minute Other Visit Diagnoses:Acute non-recurrent sinusitis, unspecified location [J01.90] Comment:Has Flonase already Acute laryngitis [J04.0] Acute bronchitis, unspecified organism [J20.9] Age related osteoporosis, unspecified pathological fracture presence [M81.0] Dysfunction of both eustachian tubes [H69.83] Comment:Will use Flonase Atypical chest pain [R07.89] Essential hypertension [I10] Order(s):US CAROTID ARTERIES [facility] [[id number]] Order #: [id number] FUTURE azithromycin (ZITHROMAX Z-PATRICK) 250 mg tabletTake 2 tablets day one, then, 1 tablet daily until gone.Disp: 1 PackageRfl: 0 Benzonatate (TESSALON) 200 mg capsuleTake 1 capsule by mouth three times daily as needed for Cough.Disp: 30 capsuleRfl: 0 losartan (COZAAR) 25 mg tabletAs directedDisp: 180 tabletRfl: 3 [START ON 10/14/2018] denosumab 60 mg injection (PROLIA)Disp: Rfl: Prescriptions as of 10/07/2018 Sig: ACETAMINOPHEN 325 MG TABLET Take 650 mg by mouth every 6 * ALPRAZOLAM 0.5 MG TABLET Take 1 tablet by mouth at bed* BUPROPION HCL SR 150 MG TABLE* Take 1 tablet by mouth twice * BUSPIRONE 15 MG TABLET TAKE ONE AND ONE-HALF TABLETS B* CALCIUM CARBONATE 600 MG (1,5* Take 1 tablet by mouth twice * CHOLECALCIFEROL (VITAMIN D3) * TAKE ONE CAPSULE BY MOUTH ONC* CITALOPRAM 40 MG TABLET TAKE ONE TABLET BY MOUTH ONCE* FEXOFENADINE 180 MG TABLET Take 180 mg by mouth once carol ann* FLONASE NASAL Use in the nose. HYDROXYZINE HCL 25 MG TABLET Take 1 tablet by mouth three * LEVOTHYROXINE 50 MCG TABLET Take 1 tablet by mouth once d* MELATONIN 5 MG TABLET Take 1 tablet by mouth daily * MELOXICAM 15 MG TABLET Take 1 tablet by mouth once d* PANTOPRAZOLE 40 MG TABLET,DEL* TAKE 1 TABLET BY MOUTH DAILY * TIZANIDINE 4 MG TABLET Take 1 tablet by mouth twice * AZITHROMYCIN 250 MG TABLET Take 2 tablets day one, then,* BENZONATATE 200 MG CAPSULE Take 1 capsule by mouth three* CELECOXIB 200 MG CAPSULE Take 1 capsule by mouth once * Patient not taking: Reported on 06/08/2018 CHOLECALCIFEROL (VITAMIN D3) * Take 1 capsule by mouth once * Patient not taking: Reported on 10/07/2018 * VITAMIN B-12 1,000 MCG TABLET Take one(1) tablet daily. LOSARTAN 25 MG TABLET As directed * FISH OIL 1,000 MG CAPSULE 2 daily TRAMADOL 50 MG TABLET Take 1 tablet by mouth twice * Problem List As Of Date 10/07/2018 Noted Resolved Fibromyalgia [[id number]] INVALID FOR* Recurrent major depressive disorder, in remissi*INVALID FOR* PERSISTENT INSOMNIA [G47.00] INVALID FOR* ESOPHAGEAL REFLUX [K21.9] INVALID FOR* ALLERGIC RHINITIS NOS [J30.9] INVALID FOR* Osteoporosis with current pathological fracture* DYSMETABOLIC SYNDROME X [E88.81] SEC HYPERPARATHYROID, NON-RENAL [E21.1] INVALID FOR* MALAISE AND FATIGUE NEC [R53.81, R53.83] INVALID FOR* HYPERLIPIDEMIA NEC/NOS [E78.5] INVALID FOR* 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 Anxiety [F41.9] T12 compression fracture (HCC) [S22.080A] INVALID FOR* Cervical disc disorder of mid-cervical region [*INVALID FOR* Spinal stenosis, lumbar region, without neuroge*INVALID FOR* Prescriptions ordered this encounter Disp Refills Start End AZITHROMYCIN 250 MG TABLET 1 Pa* 0 10/07/2018 10/12/2018 Sig: Take 2 tablets day one, then, 1 tablet daily until gone. BENZONATATE 200 MG CAPSULE 30 c* 0 10/07/2018 Route: ORAL Sig: Take 1 capsule by mouth three times daily as needed for Cough. LOSARTAN 25 MG TABLET 180 * 3 10/07/2018 Sig: As directed DENOSUMAB 60 MG/ML SUBCUTANEOUS SYRI* 10/14/2018 10/09/2019 Route: SUBCUTANEOUS Medications Discontinued During This Encounter losartan (COZAAR) 25 mg tablet 01/28/2017 10/07/2018 Class: Med Update Sig: On Hold because of low blood pressures and fatigue Patient not taking: Reported on 06/08/2018 Disc: Reason for discontinue is not on file. Follow-up and Disposition History Recorded Encounter Status:Closed by EUNICE GONCALVES MD on 10/07/18 12 LEAD ELECTROCARDIOGRAM Observed: 10/01/2018 Status: F Source: [place] 2:12 PM [facility] REPOSIT[facility] Cardiovascular Services [address] [place] [id number] 12 Lead EKG 09/29/18 0526 MR#: [id number] Acct: [id number] Name: NELLA MORRIS Rep #: [id number] : 1950 68 From: Ar Young MD Attending Dr: Barb Lozano MD Status: DIS DANIEL Ordering Dr: Barb Lozano MD Date: 09/29/18 Location: [facility] Sex: F C Admitted: 09/28/18 Test Reason : Blood Pressure : / mmHG Vent. Rate : 066 BPM Atrial Rate : 066 BPM P-R Int : 188 ms QRS Dur : 088 ms QT Int : 460 ms P-R-T Axes : 056 -46 -55 degrees QTc Int : 482 ms Normal sinus rhythm Left anterior fascicular block Cannot rule out Inferior infarct (masked by fascicular block?) , age undetermined T wave abnormality, consider anterior ischemia Abnormal ECG When compared with ECG of 28-SEP-2018 14:38, MANUAL COMPARISON REQUIRED, DATA IS UNCONFIRMED Confirmed by AR YOUNG MD ([id number]), avid editor MARJORIE COCHRAN ([id number]) on 10/01/2018 2:11:40 PM Referred By: Barb Lozano Confirmed By:AR YOUNG MD 10/01/18 1411 Date Ar Young MD CC: Barb Lozano MD; Eunice Goncalves MD Signed 12 LEAD ELECTROCARDIOGRAM Observed: 10/01/2018 Status: F Source: [place] 1:49 PM [facility] REPOSIT[facility] Cardiovascular Services [address] [place] [address] 12 Lead EKG 09/28/18 1438 MR#: [id number] Acct: [id number] Name: NELLA MORRIS Rep #: [id number] : 1950 68 From: Ar Young MD Attending Dr: Barb Lozano MD Status: DIS DANIEL Ordering Dr: Tanya Aceves MD Date: 09/28/18 Location: [facility] Sex: F C Admitted: 09/28/18 Test Reason : CP Blood Pressure : / mmHG Vent. Rate : 085 BPM Atrial Rate : 085 BPM P-R Int : 204 ms QRS Dur : 092 ms QT Int : 400 ms P-R-T Axes : 068 -43 044 degrees QTc Int : 476 ms Normal sinus rhythm Left axis deviation Possible Anterolateral infarct , age undetermined Abnormal ECG Confirmed by HANNAH CONNELL, AR ([id number]), avid editor MARJORIE COCHRAN ([id number]) on 10/01/2018 1:49:22 PM Referred By: Barb Lozano Confirmed By:AR YOUNG MD 10/01/18 1349 Date Ar Young MD CC: Barb Lozano MD; Tanya Aceves MD; Eunice Goncalves MD Signed PROGRESS Observed: 09/30/2018 Status: COMPLETED Source: [place] 2:31 PM [facility] RE[facility] HNO ID: [id number] Author: Denise Murrell LPN Service: (none) Author Type: (none) Type: Progress Notes Filed: 10/07/2018 6:11 PM Note Text: TRANSITION CARE MANAGEMENT (TCM) INITIAL CONTACT [facility] Outreach Provider Action/FYI: Initial contact with patient post discharge, spoke to patient. Patient identified by name and . TRANSITION CARE MANAGEMENT INITIAL OUTREACH DOCUMENTATION: Date of Outreach: 09/30/2018 Outreach Attempt 1: Contact Made Date of Discharge 09/29/2018 Some recent data might be hidden SUMMARY: -Pt discharged from [facility] on 09/29/18. -Admitted for: chest pain Do you have a hospital follow up appointment with your PCP? Appointment on 10/07/18 with pcp. MEDICATIONS: Many patients have questions or concerns about their medications once they are home. Were you prescribed any new medications? No Were you told to hold any medications? No Were any of your medications discontinued? No Do you have any questions about getting or taking your medications? No Your discharge instructions/After visit Summary (AVS) are important in guiding you through the recovery process. Is there anything I might help you understand? No Do you have all the necessary equipment and supplies at home? Yes Medical records from recent hospitalization: Placed for provider to review CNPTOUTREACH Observed: 09/30/2018 Status: COMPLETED Source: [place] 12:00 AM [facility] REPOSITORY Patient Outreach (INTMWS) NELLA MORRIS ([id number]) 1950 F Date Time Provider Department 09/30/18 EUNICE GONCALVES INTMWS During your visit today, we recorded the following information about you: Denise Nyasia BLANCO 10/07/2018 6:11 PM Signed TRANSITION CARE MANAGEMENT (TCM) INITIAL CONTACT [facility] Out[facility] Provider Action/FYI: Initial contact with patient post discharge, spoke to patient. Patient identified by name and . TRANSITION CARE MANAGEMENT INITIAL OUTREACH DOCUMENTATION: Date of Outreach: 09/30/2018 Outreach Attempt 1: Contact Made Date of Discharge 09/29/2018 Some recent data might be hidden SUMMARY: -Pt discharged from [facility] on 09/29/18. -Admitted for: chest pain Do you have a hospital follow up appointment with your PCP? Appointment on 10/07/18 with pcp. MEDICATIONS: Many patients have questions or concerns about their medications once they are home. Were you prescribed any new medications? No Were you told to hold any medications? No Were any of your medications discontinued? No Do you have any questions about getting or taking your medications? No Your discharge instructions/After visit Summary (AVS) are important in guiding you through the recovery process. Is there anything I might help you understand? No Do you have all the necessary equipment and supplies at home? Yes Medical records from recent hospitalization: Placed for provider to review Eunice Goncalves MD 10/07/2018 6:11 PM Signed Patient seen today Allergies As of Date: 09/30/2018 Noted Allergy Reaction LATEX 04/06/2007 2 - Rash 9 - Itching ACTONEL (RISEDRONATE SODIUM) 10/30/2005 8 - GI Upset FOSAMAX (ALENDRONATE SODIUM) 10/30/2005 8 - GI Upset Date Reviewed: 06/18/2018 Reviewed by: Nancy Quinn LPN - Fully Assessed Reason for Visit: Transition Of Care [4074] Prescriptions as of 09/30/2018 Sig: ACETAMINOPHEN 325 MG TABLET Take 650 mg by mouth every 6 * ALPRAZOLAM 0.5 MG TABLET Take 1 tablet by mouth at bed* BUPROPION HCL SR 150 MG TABLE* Take 1 tablet by mouth twice * BUSPIRONE 15 MG TABLET TAKE ONE AND ONE-HALF TABLETS B* CALCIUM CARBONATE 600 MG (1,5* Take 1 tablet by mouth twice * CELECOXIB 200 MG CAPSULE Take 1 capsule by mouth once * Patient not taking: Reported on 06/08/2018 CHOLECALCIFEROL (VITAMIN D3) * Take 1 capsule by mouth once * Patient not taking: Reported on 10/07/2018 CHOLECALCIFEROL (VITAMIN D3) * TAKE ONE CAPSULE BY MOUTH ONC* CITALOPRAM 40 MG TABLET TAKE ONE TABLET BY MOUTH ONCE* * VITAMIN B-12 1,000 MCG TABLET Take one(1) tablet daily. FEXOFENADINE 180 MG TABLET Take 180 mg by mouth once carol ann* FLONASE NASAL Use in the nose. HYDROXYZINE HCL 25 MG TABLET Take 1 tablet by mouth three * LEVOTHYROXINE 50 MCG TABLET Take 1 tablet by mouth once d* MELATONIN 5 MG TABLET Take 1 tablet by mouth daily * MELOXICAM 15 MG TABLET Take 1 tablet by mouth once d* * FISH OIL 1,000 MG CAPSULE 2 daily PANTOPRAZOLE 40 MG TABLET,DEL* TAKE 1 TABLET BY MOUTH DAILY * TIZANIDINE 4 MG TABLET Take 1 tablet by mouth twice * X LOSARTAN 25 MG TABLET On Hold because of low blood * Patient not taking: Reported on 06/08/2018 Problem List As Of Date 09/30/2018 Noted Resolved Fibromyalgia [[id number]] INVALID FOR* Recurrent major depressive disorder, in remissi*INVALID FOR* PERSISTENT INSOMNIA [G47.00] INVALID FOR* ESOPHAGEAL REFLUX [K21.9] INVALID FOR* ALLERGIC RHINITIS NOS [J30.9] INVALID FOR* Osteoporosis with current pathological fracture* DYSMETABOLIC SYNDROME X [E88.81] SEC HYPERPARATHYROID, NON-RENAL [E21.1] INVALID FOR* MALAISE AND FATIGUE NEC [R53.81, R53.83] INVALID FOR* HYPERLIPIDEMIA NEC/NOS [E78.5] INVALID FOR* 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 Anxiety [F41.9] T12 compression fracture (HCC) [S22.080A] INVALID FOR* Cervical disc disorder of mid-cervical region [*INVALID FOR* Spinal stenosis, lumbar region, without neuroge*INVALID FOR* Encounter Status:Closed by EUNICE GONCALVES MD on 10/07/18 DISCHARGE SUMMARY Observed: 09/29/2018 Status: F Source: [place] 1:55 PM [facility] REPOSITORY [facility] Medical Records Department [address] [place] [address] Discharge Summary 09/29/18 1226 MR#: [id number] Acct: [id number] Name: NELLA MORRIS Rep #: [id number] : 1950 68 From: Barb Lozano MD PCP: Eunice Goncalves MD Status: DIS DANIEL Y Location: [place] [address] Discharge Date and Diagnosis Date of Admission: 09/28/18 Date of Discharge: 09/29/18 - Primary Discharge Diagnosis Active and Suspected Problems (Last Updated 06/18/18 @ 16:03 by Rosemary Romeo) Chest pain (Acute) - Secondary Discharge Diagnosis Chronic Problems (Last Updated 06/18/18 @ 16:03 by Rosemary Romeo) Hypothyroidism (Chronic) Hyperlipidemia (Chronic) Hospital Course and Treatment Imaging Results: 09/29/18 05:55 Nuclear Stress Test - Treadmil [NM] AM (NON MEDS) Summary of Care Provided: Patient is a 68-year-old lady presented with chest pain 1. Chest pain: Patient has been admitted to a monitored bed rule out [place] with serial cardiac enzymes subsequently underwent a nuclear stress test which is negative for stress-induced ischemia discharge home instructed to follow-up with PCP for subsequent care 2. Hypertension-blood pressure controlled, home medications continued with dose adjustment as needed 3. Dyslipidemia 4. Anxiety disorder 5. Hypothyroidism-patient is on levothyroxine home dose continued 6. DVT prophylaxis SC Lovenox - Physical Exam General: Alert HEENT: Atraumatic Oral: Moist Mucosa Neck: Supple Neurological: Neuro grossly intact Psych/Mental Status: Normal Affect Vital Signs Temp Pulse Resp BP Pulse Ox 98.3 F 71 18 122/59 H 94 09/29/18 08:23 09/29/18 11:02 09/29/18 08:23 09/29/18 08:23 09/29/18 08:23 Oxygen Delivery Method Room Air Weight: 67.9 kg Body Mass Index (BMI) 29.2 Intake and Output for Last 24 Hours Intake Total 240 / 240 Balance 240 / 240 Laboratory Tests Past 24 Hrs WBC 8.7 RBC 4.36 Hgb 12.2 Hct 38.9 MCV 89.2 MCH 28.0 MCHC 31.4 L RDW 13.7 RDW Differential 44.9 H WBC RBC Hgb Hct MCV MCH MCHC RDW RDW Differential WBC 5.0 RBC 4.33 Hgb 12.2 Hct 38.6 MCV 89.1 MCH 28.2 MCHC 31.6 L Discharge Diet: No Restrictions Home Medications: Medications to take at Discharge Citalopram [Celexa] 40 mg PO QHS 09/24/16 Levothyroxine [Synthroid] 50 mcg PO DAILY 09/24/16 Pantoprazole Sodium [Protonix] 40 mg PO QHS 09/24/16 buPROPion SR [Wellbutrin SR (150mg tablets)] 150 mg PO DAILY 09/24/16 Ergocalciferol [Vitamin D] 50,000 unit PO [place] 12/02/16 ALPRAZolam [Xanax] 0.5 mg PO QHS 12/09/16 Acetaminophen [8 Hour] 1,300 mg PO PRN PRN 09/28/18 Fexofenadine HCl [Alvina Allergy] 180 mg PO DAILY 09/28/18 Meloxicam 15 mg PO DAILY 09/28/18 Tizanidine HCl [Zanaflex] 4 mg PO QHS 09/28/18 busPIRone [Buspar] 15 mg PO DAILY 09/28/18 Primary Care Physician: Eunice Goncalves MD [Primary Care Provider] - Patient Instructions: ED Chest Pain NonCardiac Medical Necessity - Tobacco Use Smoking Status: Never smoker Meaningful Use Info Meaningful Use Diagnoses (Choose all that apply): None applicable Code Visit OBSV E AND M: 90063 Observation care discharge 09/29/18 1355 <Electronically signed by Barb Lozano MD> Date Barb Lozano MD Cosigner Signature (if applicable): Date CC: Barb Lozano MD; Eunice Goncalves MD Signed DISCHARGE INSTRUCTION Observed: 09/29/2018 Status: F Source: [place] 12:26 PM [facility] REPOSITORY [facility] Medical Records Department [address] [place] [address] Instructions for Home/Discharge Instructions 09/29/18 1225 MR#: [id number] Acct: [id number] Name: NELLA MORRIS Rep #: [id number] : 1950 68 From: Barb Lozano MD PCP: Eunice Goncalves MD Status: ADM DANIEL - Discharge Diagnoses Current Active Problems: Current Active and Chronic Problems (Last Updated 06/18/18 @ 16:03 by Rosemary Romeo) Chest pain (Acute) You will use the following diet at home:: No restrictions Instructions: ED Chest Pain NonCardiac Allergies/Adverse Reactions: Allergies latex Allergy (Verified 12/02/16 13:56) COUGHING AND SORE THROAT Medications to take at Discharge Citalopram [Celexa] 40 mg PO QHS 09/24/16 Levothyroxine [Synthroid] 50 mcg PO DAILY 09/24/16 Pantoprazole Sodium [Protonix] 40 mg PO QHS 09/24/16 buPROPion SR [Wellbutrin SR (150mg tablets)] 150 mg PO DAILY 09/24/16 Ergocalciferol [Vitamin D] 50,000 unit PO [place] 12/02/16 ALPRAZolam [Xanax] 0.5 mg PO QHS 12/09/16 Acetaminophen [8 Hour] 1,300 mg PO PRN PRN 09/28/18 Fexofenadine HCl [Alvina Allergy] 180 mg PO DAILY 09/28/18 Meloxicam 15 mg PO DAILY 09/28/18 Tizanidine HCl [Zanaflex] 4 mg PO QHS 09/28/18 busPIRone [Buspar] 15 mg PO DAILY 09/28/18 Primary Care Physician: Eunice Goncalves MD [Primary Care Provider] - Test Results: Test results from this visit will be discussed in further detail at your follow-up appointment, if applicable. Proposed Discharge Date: 09/29/18 09/29/18 1226 <Electronically signed by Barb Lozano MD> Date Barb Lozano MD CC: Eunice Goncalves MD ECHOCARDIOGRAM COMPLETE Observed: 09/29/2018 Status: F Source: [place] 11:25 AM [facility] REPOSIT[facility] Cardiovascular Services [address] [place] [address] Echo Complete 09/29/18927 MR#: [id number] Acct: [id number] Name: NELLA MORRIS Rep #: [id number] : 1950 68 From: Bhavik Bond MD Attending Dr: Barb Lozano MD Status: ADM DANIEL Ordering Dr: Barb Lozano MD Date: 09/28/18 Location: [facility] Sex: F C Admitted: 09/28/18 Reason For Study: CHEST PAIN Procedure This was a 2D Doppler, Color Flow transthoracic echocardiogram. Exam performed portable in patient room. Left Ventricle Normal size and thickness. The estimated ejection fraction is 75 %. Normal diastology for age. No regional wall motion abnormalities noted. Right Ventricle Normal size and thickness. Normal systolic function. Atria Normal left atrium. Normal right atrium. Normal atrial septum. Mitral Valve The mitral valve is structurally normal. No prolapse or stenosis seen. Tricuspid Valve Normal tricuspid valve. Mild (1+) tricuspid valve insufficiency. Right ventricular systolic pressure estimated to be 31 mmHg. Aortic Valve Normal aortic valve. Trisinus/trileaflet aortic valve. Trivial aortic valve insufficiency. Pulmonic Valve Normal pulmonic valve. Great Vessels Normal aortic root. Normal arch. Normal inferior vena cava. Inferior vena cava collapse with sniff. Pericardium/Pleural No pericardial effusion. MMode/2D Measurements AND Calculations LVIDd: 4.7 cm IVSd: 1.0 cm Ao root diam: 3.3 cm LVIDs: 2.6 cm LVPWd: 1.2 cm RVDd: 3.3 cm FS: 44.0 % LAV(MOD-bp): 52.2 ml LVAd ap4: 28.1 cm2 SV(MOD-sp4): 51.3 ml LAV(MOD-bp) Indexed: 31.7 ml/m2 EDV(MOD-sp4): 85.6 ml LAV(MOD-sp2): 48.0 ml EDV(sp4-el): 90.8 ml LAV(MOD-sp4): 55.9 ml LVAs ap4: 15.9 cm2 ESV(MOD-sp4): 34.3 ml ESV(sp4-el): 34.2 ml EF(MOD-sp4): 59.9 % EF(sp4-el): 62.4 % SV(sp4-el): 56.6 ml LA A4 area: 19.3 cm2 LA dimension(2D): 3.8 cm RA A4 area: 16.6 cm2 Time Measurements MV dec time: 0.23 sec Doppler Measurements AND Calculations MV E max marian: 66.9 cm/sec Lat Peak E' Marian: 6.8 cm/sec Med Peak E' Marian: 7.6 cm/sec MV A max marian: 54.0 cm/sec E/E' lat: 9.9 E/E' med: 8.9 MV E/A: 1.2 Ao V2 max: 115.7 cm/sec AI max marian: 436.6 cm/sec LV V1 max: 90.6 cm/sec Ao max P.4 mmHg AI max P.3 mmHg LV V1 max P.3 mmHg AI dec slope: 254.1 cm/sec2 AI P1/2t: 503.2 msec PA V2 max: 111.5 cm/sec TR max marian: 238.9 cm/sec TR max P.9 mmHg Interpretation Summary The estimated ejection fraction is 75 %. Normal diastology for age. Mild (1+) tricuspid valve insufficiency. Right ventricular systolic pressure estimated to be 31 mmHg. There is no comparison study available. Ordering Physician: Barb Lozano Referring Physician: EUNICE GONCALVES Performed By: Renae Marin, ROSCOE, RVT 09/29/181123 Date Bhavik Bond MD CC: Barb Lozano MD; Eunice Goncalves MD Date Dictated: 09/29/1828 Date Transcribed: 09/29/181123 Porcelain Mixer: Signed STRESS REPORT Observed: 09/29/2018 Status: F Source: [place] 10:39 AM [facility] REPOSITORY [facility] Cardiovascular Services [address] [place] [address] MR#: [id number] Acct: [id number] Name: NELLA MORRIS Rep #: [id number] : 1950 68 From: Ar Young MD Primary Care: Eunice Goncalves MD Status: ADM DANIEL Ordering Dr: Sex: F C Stress Test Report Exercise myocardial perfusion stress test. 68-year-old lady with a history of chest pain. Medications, Xanax aspirin Mobic. Stress protocol: Resting EKG demonstrates normal sinus rhythm with a rate of 68 bpm normal intervals are noted resting blood pressure 148/92 mmHg. The patient exercised according to regular Noble protocol for a total duration of 3 minutes and 46 seconds. The maximum heart rate attained was 139 bpm which was 91% of maximum predicted heart rate the maximum workload was 5.5 metabolic equivalents. At rest there were no ST or T wave changes noted suggest ischemia peak exercise nonspecific ST-T wave changes were noted with normally the criteria for ischemia. No clinical angina was noted. The test was terminated due to leg fatigue. Resting blood pressure is 148/92 with a final blood pressure 180/94. Myocardial perfusion protocol. 11.2 mCi of technetium 99m sestamibi was injected at rest. Patient exercised according to regular Noble protocol for 3 minutes 46 seconds attaining 5.5 metabolic equivalents at peak exercise 32.7 mCi of technetium 99m sestamibi was injected stress images were obtained stress and rest images were reconstructed and compared in the short axis vertical long horizontal long axis. Gated images were also obtained next Perfusion SPECT analysis: Review of the stress images demonstrate normal uptake of tracer noted in all areas of the myocardium. The resting images similarly demonstrate normal uptake of tracer noted in all areas of the myocardium. No areas of reversibility are noted suggest ischemia. Gated SPECT analysis: The gated ejection fraction is over 80%. Conclusion: Normal exercise myocardial perfusion stress test at a low to moderate workload. Preserved ejection fraction. 09/29/18 1039 <Electronically signed by Ar Young MD> Date Ar Young MD CC: Barb Lozano MD; Eunice Goncalves MD Date Dictated: 09/29/18 1036 Date Transcribed: 09/29/181035 Porcelain Mixer: CO Signed CBC-COMPLETE BLOOD CNT Collected: 09/29/2018 Status: F Source: [place] NO DIFF 8:10 AM [facility] REPOSITORY TYPE CODE TESTS RESULT OUT OF RANGE REFERENCE UNITS LAB L100.1000 4.4-11.0 K/mm3 Normal WBC 5.0 LAB L100.1200 4.2-5.4 M/mm3 Normal RBC 4.33 LAB L100.1300 12.0-15.0 g/dl Normal HGB 12.2 LAB L100.1400 37-47 % Normal HCT 38.6 LAB L100.1500 81-99 fL Normal MCV 89.1 LAB L100.1600 27.0-32.0 pg Normal MCH 28.2 LAB L100.1700 32-36 g/gl Low MCHC 31.6 LAB L100.1810 11.6-14.6 % Normal RDW CV 13.7 LAB L100.1820 35.1-43.9 fl High RDW SD 44.9 LAB L100.1900 150-450 K/mm3 Normal PLT 372 LAB L100.2000 6.2-12.0 fl Normal MPV 9.5 Performed By: #### L100.0500 #### [facility] [address] [place], [place] [address]all julia. [place], [place], [address] COMPREHENSIVE METABOLIC Collected: 09/29/2018 Status: F Source: [facility] 8:10 AM [facility] REPOSITORY TYPE CODE TESTS RESULT OUT OF RANGE REFERENCE UNITS LAB L501.0100 74-106 mg/dL Normal GLU 82 Result Comment: Please note revised GLUCOSE reference range effective 2017. LAB L501.1000 7-18 mg/dL Normal BUN 14 LAB L501.1100 0.55-1.02 mg/dL Normal CREAT,SERUM 0.98 Result Comment: The validity of the calculated GFR AND GFRAA in patients over 70 years has not been determined. Clinical correlation is essential. LAB L501.1110 >60 mL/min Normal EST GFR 60 Result Comment: Non- GFR Calc LAB L501.1115 >60 mL/min Normal EST GFR - AA 72 Result Comment: GFR Calc LAB L501.1255 ml/min Normal Estimated CRCL 39.46 LAB L501.1300 10-20 RATIO Normal BUN/CRE 14.3 LAB L501.1500 6.4-8. g/dL Normal 2 T PROT 6.8 LAB L501.1800 3.2-5. g/dL Normal 0 ALB 3.6 LAB L501.1950 2.2-4. g/dL Normal 2 GLOB 3.2 LAB L501.2000 0.9-2. RATIO Normal 4 A/G 1.1 LAB L501.2200 8.5-10 mg/dL Normal .1 CA 8.6 LAB L501.4100 15-37 U/L Low AST 12 LAB L501.4305 45-117 U/L Normal ALK P 80 LAB L501.4405 13-56 U/L Normal ALT 20 LAB L501.4600 0.20-1 mg/dL Normal .00 T BILI 0.30 LAB L501.5300 136-14 mmol/L Normal 5 NA 141 LAB L501.5600 3.5-5. mmol/L Normal 1 K 3.9 LAB L501.5900 98-107 mmol/L Normal CL 105 LAB L501.6100 21.0-3 mmol/L Normal 2.0 CO2 25.0 LAB L501.6200 5-15 Normal GAP 11 Performed By: #### L500.4050, L501.4700 #### [facility] [address] [place], [address] BILIRUBIN, DIRECT Collected: 09/29/2018 Status: F Source: [place] 8:10 AM [facility] REPOSITORY TYPE CODE TESTS RESULT OUT OF RANGE REFERENCE UNITS LAB L501.4700 0.00-0.30 mg/dL Normal D BILI 0.11 Performed By: #### L500.4050, L501.4700 #### [facility] [address] [place], [address] PROTHROMBIN TIME W/INR Collected: 09/29/2018 Status: F Source: [place] 8:10 AM [facility] REPOSITORY TYPE CODE TESTS RESULT OUT OF RANGE REFERENCE UNITS LAB L300.4150 11.7-14.9 SECONDS Normal PROTIME 12.3 LAB L300.4200 Normal INR 0.9 Performed By: #### L300.3900, L300.4310 #### [facility] [address] [place], [address] PARTIAL THROMBOPLAST Collected: 09/29/2018 Status: F Source: [place] TIME 8:10 AM [facility] REPOSITORY TYPE CODE TESTS RESULT OUT OF RANGE REFERENCE UNITS LAB L300.4310 24.1-36.2 Seconds Normal PTT 33.5 Performed By: #### L300.3900, L300.4310 #### [facility] [address] [place], [address] EMERGENCY DEPARTMENT Observed: 09/29/2018 Status: F Source: [place] SUMMARY 1:58 AM [facility] REPOSITORY [facility] Medical Records Department [address] [place] [address] Emergency Department Summary 09/28/18 1457 MR#: [id number] Acct: [id number] Name: NELLA MORRIS Rep #: [id number] : 1950 68 From: Tanya Aceves MD PCP: Eunice Goncalves MD Status: ADM DANIEL - ER Visit Summary Date of Service: 09/28/18 Chief Complaint: Chest pain History of Present Illness: The patient is a 68 F who was driving around 110 this afternoon and had sudden onset of tunnel vision, heart racing, chest tightness, and shortness of breath. She pulled over to the side of the road and her symptoms slowly resolved after about 10 minutes. She still feels slightly lightheaded at this time. Past history is significant for hypertension and she was taken off her medications 2 years ago. She also has high cholesterol, GERD, hypothyroidism, kidney stones, and depression. Physical Examination: Vital signs on arrival include blood pressure of 190/98, otherwise unremarkable. At the time of my examination her systolic blood pressures in the low 140s. Head neck examination is normal. Heart is regular rate and rhythm without murmur. Lungs sounds are clear. Abdomen is soft and nontender. Lower extremity examination reveals no calf tenderness or edema. Test Results: EKG is sinus [address] change. CBC and chemistry studies are unremarkable. Urinalysis is normal. Troponin and TSH are both normal. D-dimer is normal at 0.44. Portable chest x-ray shows no increased linear markings in the lower lobes suggestive of atelectasis and/or early infiltrate. Emergency Department Course and Treatment: She is given aspirin and IV fluids. On repeat evaluation patient is resting comfortably. She has had no further episodes while here in the emergency room. Patient does have risk for cardiac disease. I suggested observation overnight for cycling of cardiac enzymes and observation for any arrhythmias. Hospitalist is on page at this time. Treatment Plan: [] Disposition: Admit Impression: Chest pain This note was generated with [employer] dictation software. It may contain incorrect words, spelling, and punctuation that were not noted in review of the chart prior to signing ED Disposition - Plan for ED Patient: Chief Complaint: Chest Pain Referrals: Eunice Goncalves MD [Primary Care Provider] - What to do if you have Problems For any increased pain, shortness of breath, bleeding, nausea or vomiting, chest pain, or any unexpected problems, contact your Primary Care Provider. Call [email or web address] ([phone]) or report to the closest Emergency Room. Call 911 if necessary. 09/29/18 0158 <Electronically signed by Tanya Aceves MD> Date Tanya Aceves MD Cosigner Signature (If Indicated): Date CC: Eunice Goncalves MD TROPONIN-I Collected: 09/28/2018 Status: F Source: [place] 9:05 PM [facility] REPOSITORY Order Comment: 'TROP' Serial specimen #1, #2 or #3: 3 TYPE CODE TESTS RESULT OUT OF RANGE REFERENCE UNITS LAB L501.4010 <0.045 ng/mL Normal < 0.015 TROPONIN-I Result Comment: TROPONIN-I EXPECTED VALUES <0.045 Negative 0.045 - 0.590 Consistent with Cardiac Damage > OR = 0.600 Critical Value Not every elevated troponin is indicative of TX. These values should be used with clinical judgement in examining the patient's clinical picture for diagnosis. To establish a diagnosis of TX versus myocardial injury, there must be a demonstrated rise and/or fall in the troponin values, in addition to ischemic symptoms, EKG changes, new regional wall motion abnormality, and/or angiographical evidence. PLEASE NOTE: REFERENCE RANGES EDITED 18 Performed By: #### L501.4010 #### [facility] [address] [facility] [place], [address] TROPONIN-I Collected: 09/28/2018 Status: F Source: [place] 6:10 PM [facility] REPOSITORY Order Comment: 'TROP' Serial specimen #1, #2 or #3: 2 TYPE CODE TESTS RESULT OUT OF RANGE REFERENCE UNITS LAB L501.4010 <0.045 ng/mL Normal < 0.015 TROPONIN-I Result Comment: TROPONIN-I EXPECTED VALUES <0.045 Negative 0.045 - 0.590 Consistent with Cardiac Damage > OR = 0.600 Critical Value Not every elevated troponin is indicative of TX. These values should be used with clinical judgement in examining the patient's clinical picture for diagnosis. To establish a diagnosis of TX versus myocardial injury, there must be a demonstrated rise and/or fall in the troponin values, in addition to ischemic symptoms, EKG changes, new regional wall motion abnormality, and/or angiographical evidence. PLEASE NOTE: REFERENCE RANGES EDITED 18 Performed By: #### L501.4010 #### [facility] [address] [place], [address] HISTORY AND PHYSICAL Observed: 09/28/2018 Status: F Source: [place] EXAM 5:17 PM [facility] REPOSITORY [facility] Medical Records Department [address] [facility] [place] [address] History and Physical 09/28/18 1701 MR#: [id number] Acct: [id number] Name: NELLA MORRIS Rep #: [id number] : 1950 68 From: Barb Lozano MD PCP: Eunice Goncalves MD Status: ADM DANIEL Y Location: [place] [address] Problem List (1) Hypothyroidism Status: Chronic (2) Hyperlipidemia Status: Chronic (3) Shortness of breath Status: Acute (4) Chest pain Status: Acute History of Present Illness Date of Admission: 09/28/18 Chief Complaint: Chest pain The patient is a 68 year old F past medical history is none for hypertension, dyslipidemia who presents with chest pain. Patient symptoms occurred while she was driving pain was scribed as discomfort located in the retrosternal region radiating to her back. Patient also had associated shortness of breath as well as palpitations. She dresses herself to the ED initial set of cardiac enzymes and EKG came back unremarkable given her presentation admitted to a monitored bed for further management. Past Medical History Past Medical History (Chronic Problems): Chronic Problems (Last Updated 06/18/18 @ 16:03 by Rosemary Romeo) Hypothyroidism (Chronic) Hyperlipidemia (Chronic) Medical History: Medical History (Last Updated 06/18/18 @ 16:03 by Rosemary Romeo) Hypothyroidism (Chronic) E03.9 Hyperlipidemia (Chronic) E78.5 Depression F32.9 Osteoporosis M81.0 History of hysterectomy Z90.710 Allergies latex Allergy (Verified 12/02/16 13:56) COUGHING AND SORE THROAT Home Medications: Ambulatory Orders Medication Instructions Recorded Citalopram [Celexa] 40 mg PO QHS 16 Surgical History: Surgical History (Last Updated 06/18/18 @ 16:06 by Rosemary Romeo) History of appendectomy Z90.49 History of bladder suspension procedure Z98.890, Z87.448 History of bunionectomy Z98.890 History of cataract extraction Z98.49 History of right oophorectomy Z90.721 History of total left hip arthroplasty Z96.642 Smoking Status: Never smoker - *Family History Paternal Family History: Family History (Last Reviewed 09/28/18 @ 17:03 by Barb Lozano MD) Father Hodgkins disease Sister Osteoporosis Review of Systems Constitutional: Denies: Anorexia, Chills, Fever, Night Sweats, Weight Change HEENT: Denies: Head Aches, Sinus Congestion, Sinus Drainage Cardiovascular: Reports: Chest Pain, Palpitations. Denies: Orthopnea, Paroxysmal Noc. Dyspnea Respiratory: Reports: Shortness of Breath. Denies: Cough Gastrointestinal: Denies: Abdominal Pain, Hematemesis, Hematochezia, Nausea, Melena, Vomiting Genitourinary: Denies: Dysuria, Frequency, Hematuria, Urgency Musculoskeletal: Denies: Joint Pain, Joint Tenderness Skin: Denies: Rash Neurological: Denies: Focal weakness, Numbness, Tingling Psychiatric: Denies: Homicidal Ideations, Suicidal Ideations Hematologic/ Lymphatic: Denies: Easy Bruising, Easy Bleeding VTE Information - Inpt Only VTE Present on Admission: No VTE Mechan Device Prophylaxis: Knee High CURLY Hose VTE Pharm Prophylaxis ordered?: Yes Patient Problems: Active and Suspected Problems (Last Updated 06/18/18 @ 16:03 by Rosemary Romeo) Chest pain (Acute) Objective: GENERAL: cooperative HEENT: Atraumatic; moist oral mucosa EYES; Anicteric, Normal Conjunctiva NECK; supple, normal thyroid, no distended JVD. RESPIRATORY: Diminished to auscultation bilaterally, CARDIOVASCULAR: Regular S1 S2, no audible murmurs GI: soft, non-tender, normoactive bowel sounds, : No Renal angle tenderness; EXTREMITIES: No edema, no clubbing, no cyanosis. MUSCULOSKELETAL: No Joint Tenderness; no muscle waisting NEURO: Awake; no lateralizing signs. SKIN: No Rash PSYCH; Normal affect - Physical Exam Vital Signs Temp Pulse Resp BP Pulse Ox 97.7 F L 74 13 146/81 H 98 09/28/18 14:31 09/28/18 16:18 09/28/18 16:18 09/28/18 16:18 09/28/18 16:18 Oxygen Delivery Method Room Air Weight: 69.5 kg Body Mass Index (BMI) 29.9 Laboratory Tests Past 24 Hrs WBC 8.7 RBC 4.36 Hgb 12.2 Hct 38.9 MCV 89.2 MCH 28.0 MCHC 31.4 L RDW 13.7 RDW Differential 44.9 H WBC RBC Hgb Hct MCV MCH MCHC RDW RDW Differential Plt Count MPV Immature Gran % (Auto) Neut % (Auto) Lymph % (Auto) [place] % (Auto) Assessment/Plan All Active Problems (Last Updated 06/18/18 @ 16:03 by Rosemary No) Chest pain (Acute) Shortness of breath (Acute) Acute kidney injury (Resolved) Patient is a 68-year-old lady presented with chest pain 1. Chest pain: Patient has been admitted to a monitored bed with plans to rule out TX with serial cardiac enzymes. Patient to undergo a nuclear stress test if TX is ruled out 2. Hypertension-blood pressure controlled, home medications continued with dose adjustment as needed 3. Dyslipidemia 4. Anxiety disorder 5. Hypothyroidism-patient is on levothyroxine home dose continued 6. DVT prophylaxis SC Lovenox Clinical Impression(s) from Imaging Studies Chest X-Ray 09/28/18 14:53 IMPRESSION: New increased linear markings with areas of confluence in the lower lobes new from prior examination. This is suggestive of atelectasis and/or early infiltrate. Electronically Signed: Chin Bell MD at 15:34 EST Tel [phone], Service support , Code Visit OBSV E AND M: [id number] Initial observation care L3 09/28/18 1717 <Electronically signed by Barb Lozano MD> Date Barb Lozano MD Cosigner Signature: Date (if applicable) CC: Barb Lozano MD; Eunice Goncalves MD Signed URINALYSIS, COMPLETE Collected: 09/28/2018 Status: F Source: [place] 3:30 PM [facility] REPOSITORY Order Comment: How was Urine Obtained? INCREMENT MANAGER TO SPECIFY TYPE CODE TESTS RESULT OUT OF RANGE REFERENCE UNITS LAB L400.3000 Yellow COLOR Normal Yellow LAB L400.3050 Clear Normal CLARITY Clear LAB L400.3200 Normal mg/dl Normal GLUCOSE, UR Normal LAB L400.3300 Negative mg/dL Normal BILIRUBIN URINE Negative LAB L400.3400 Negative mg/dl Normal KETONE UR Negative LAB L400.3465 1.002-1.030 Normal SP.GR. DIPSTX 1.005 LAB L400.3550 5.0 - 8.0 pH UR Normal 7.0 LAB L400.3600 Negative mg/dl PROT Normal DIPSTX Negative LAB L400.3700 Normal mg/dl Normal UROBILI Normal LAB L400.3750 Negative Normal NITRITE UR Negative LAB L400.3780 Negative /ul Normal OCCULT BLOOD-UR Negative LAB L400.3800 Negative /ul LEUK Normal ESTERASE Negative LAB L400.4050 0-5 /hpf WBC 0 Normal SEEN LAB L400.4100 0-5 /hpf 0 Normal RBC-UA SEEN LAB L400.4150 5-10 /hpf SQUAM 0 Normal EPI SEEN LAB L400.4300 None Seen /hpf 0 Normal BACTERIA SEEN LAB L400.4350 <or=2+ /hpf 0 Normal MUCUS, URINE SEEN Performed By: #### L400.0001 #### [facility] [address] [place], [address] CBC W/DIFF, AUTOMATED Collected: 09/28/2018 Status: F Source: [place] 3:15 PM [facility] REPOSITORY TYPE CODE TESTS RESULT OUT OF RANGE REFERENCE UNITS LAB L100.1000 4.4-11.0 K/mm3 Normal WBC 8.7 LAB L100.1200 4.2-5.4 M/mm3 Normal RBC 4.36 LAB L100.1300 12.0-15.0 g/dl Normal HGB 12.2 LAB L100.1400 37-47 % Normal HCT 38.9 LAB L100.1500 81-99 fL Normal MCV 89.2 LAB L100.1600 27.0-32.0 pg Normal MCH 28.0 LAB L100.1700 32-36 g/gl Low MCHC 31.4 LAB L100.1810 11.6-14.6 % Normal RDW CV 13.7 LAB L100.1820 35.1-43.9 fl High RDW SD 44.9 LAB L100.1900 150-450 K/mm3 Normal PLT 393 LAB L100.2000 6.2-12.0 fl Normal MPV 9.4 LAB L100.2100 47-70 % Normal NEUT% 69.1 LAB L100.2200 19-41 % Normal LY% 23.3 LAB L100.2300 0-10 % Normal MONO% 6.2 LAB L100.2400 0-5 % Normal EO% 1.1 LAB L100.2500 0-1 % Normal BASO% 0.3 LAB L100.2550 0.0-0.9 % Normal IM GRAN % 0.000 Result Comment: IG% - Immature Granulocytes (promyelocytes, myelocytes and metamyelocytes) > 1% indicates that a LEFT SHIFT is Present. LAB L100.2620 2.0-7.7 X10 3/uL Normal Absolute Neut 6.0 LAB L100.2720 0.83-4.51 X10 3/ul Normal Absolute Lymph 2.03 Performed By: #### L100.0100 #### [facility] [address] [place], [address] D-DIMER QUANTITATIVE Collected: 09/28/2018 Status: F Source: [place] (DVT/PE) 3:15 PM [facility] REPOSITORY TYPE CODE TESTS RESULT OUT OF RANGE REFERENCE UNITS LAB L300.8000 0.27-0.49 FEU/ug/m Normal D-DIMER 0.44 QUANT Result Comment: NORMAL D-Dimer level (<0.50) indicates no DVT or PE. Performed By: #### L300.8000 #### [facility] [address] [place], [place], [address] BASIC METABOLIC Collected: 09/28/2018 Status: F Source: [place] PROFILE (BMP) 3:15 PM [facility] REPOSITORY TYPE CODE TESTS RESULT OUT OF RANGE REFERENCE UNITS LAB L501.0100 74-106 mg/dL Normal GLU 91 Result Comment: Please note revised GLUCOSE reference range effective 2017. LAB L501.1000 7-18 mg/dL Normal BUN 14 LAB L501.1100 0.55-1.02 mg/dL Normal CREAT,SERUM 0.99 Result Comment: The validity of the calculated GFR AND GFRAA in patients over 70 years has not been determined. Clinical correlation is essential. LAB L501.1110 >60 mL/min Low EST GFR 59 Result Comment: Non- GFR Calc LAB L501.1115 >60 mL/min Normal EST GFR - AA 71 Result Comment: GFR Calc LAB L501.1255 ml/min Normal Estimated CRCL 39.07 LAB L501.1300 10-20 RATIO Normal BUN/CRE 14.1 LAB L501.2200 8.5-10 mg/dL Normal .1 CA 8.9 LAB L501.5300 136-14 mmol/L Normal 5 NA 139 LAB L501.5600 3.5-5. mmol/L Normal 1 K 3.5 LAB L501.5900 98-107 mmol/L Normal CL 105 LAB L501.6100 21.0-3 mmol/L Normal 2.0 CO2 26.0 LAB L501.6200 5-15 Normal GAP 8 Performed By: #### L500.2500, L501.4010, L501.9520 #### [facility] [address] [place], [address] TROPONIN-I Collected: 09/28/2018 Status: F Source: [place] 3:15 PM [facility] REPOSITORY TYPE CODE TESTS RESULT OUT OF RANGE REFERENCE UNITS LAB L501.4010 <0.045 ng/mL Normal < 0.015 TROPONIN-I Result Comment: TROPONIN-I EXPECTED VALUES <0.045 Negative 0.045 - 0.590 Consistent with Cardiac Damage > OR = 0.600 Critical Value Not every elevated troponin is indicative of TX. These values should be used with clinical judgement in examining the patient's clinical picture for diagnosis. To establish a diagnosis of TX versus myocardial injury, there must be a demonstrated rise and/or fall in the troponin values, in addition to ischemic symptoms, EKG changes, new regional wall motion abnormality, and/or angiographical evidence. PLEASE NOTE: REFERENCE RANGES EDITED 18 Performed By: #### L500.2500, L501.4010, L501.9520 #### [facility] [place], [address] THYROID STIM HORMONE Collected: 09/28/2018 Status: F Source: [place] (TSH) 3:15 PM [facility] REPOSITORY TYPE CODE TESTS RESULT OUT OF RANGE REFERENCE UNITS LAB L501.9520 0.358-3.74 uIU/mL Normal TSH 0.92 Performed By: #### L500.2500, L501.4010, L501.9520 #### [facility] [address] [place], [address] CHEST 1 VIEW Observed: 09/28/2018 Status: F Source: [place] (PORTABLE) 2:56 PM [facility] REPOSITORY [facility] Imaging Services [address] [place] [id number] Chest 1 View (Portable) MR#: [id number] Acct: [id number] Name: NELLA MORRIS Rep #: [id number] : 1950 F 68 From: Chin Bell MD PCP: Eunice Goncalves MD Status: REG ER Study: Chest 1 View (Portable) Date of Exam: 09/28/18 Exam# [id number] Ordering Dr: Tanya Aceves MD STUDY: X-RAY CHEST REASON FOR EXAM: Female, 68 years old. Chest pain. TECHNIQUE: Single AP portable view of the chest. COMPARISON: Comparison is made with prior study dated June 06, 2017. FINDINGS: EKG electrodes are seen. Mild degree of increased linear markings at the lung bases slightly worse on the left side. These are new as compared to prior study and may represent early atelectasis and/or infiltrates. There is no demonstrated pleural abnormality. Normal size heart. Normal mediastinum and craig. Normal visualized pulmonary arteries. There is atherosclerotic tortuosity of the aortic arch and descending thoracic aorta. There is a dextroscoliosis of the thoracic spine. Normal visualized ribs, clavicles, and shoulders. There is no demonstrated abnormality of the visualized soft tissue structures of the upper abdomen. RAD/Chest 1 View (Portable) IMPRESSION: New increased linear markings with areas of confluence in the lower lobes new from prior examination. This is suggestive of atelectasis and/or early infiltrate. Electronically Signed: Chin Bell MD at 15:34 EST Tel [phone], Service support , CC: Tanya Aceves MD; Eunice Goncalves MD Porcelain Mixer: Signed DEXA BONE DENSITY Observed: 09/14/2018 Status: F Source: [place] STUDY 9:52 AM [facility] REPOSITORY [facility] Imaging Services [facility] [place] [address] Dexa Bone Density Study MR#: [id number] Acct: [id number] Name: NELLA MORRIS Rep #: [id number] : 1950 F 68 From: Chin Bell MD PCP: Eunice Goncalves MD Status: REG CLI Study: Dexa Bone Density Study Date of Exam: 09/14/18 Exam# [id number] Ordering Dr: Eunice Goncalves MD STUDY: DUAL ENERGY X-RAY ABSORPTIOMETRY / DXA REASON FOR EXAM: Female, 68 years old. The patient is postmenopausal. Loss of height. TECHNIQUE: Bone Mineral Density (BMD) measurements of lumbar spine and right hip were obtained. The patient is status post left hip replacement. COMPARISON: Comparison is made with prior study dated September 11, 2016. FINDINGS: Lumbar Spine (L1-L4): g/cm2 (0.911) / T-score (-2.4) / Z-score (-0.8) Findings are suggestive of osteopenia with a high fracture risk. Right Femur Total: g/cm2 (0.595) / T-score (-3.3) / Z- score (-1.9) Right Femoral Neck: g/cm2 (0.606) / T-score (-3.1) / Z-score (-1.5) The T-Scores on the most recent prior examination were: Lumbar Spine (L1-L4): There has been worsening of bone density since the previous examination. Left Femur Total: . Right Femur Total: which represents a worsening of 3.6%. BD/Dexa Bone Density Study IMPRESSION: The patient is considered osteoporotic as outlined below according to World Elvis Organization (WHO) criteria with a high fracture risk. There has been worsening of bone density since the previous examination. Reference Information: The T-score is the number of standard deviations above or below the standard which is normal for young adults at their peak bone mineral density. The World Health Organization (WHO) interprets the T-scores as follows: Above -1 Normal bone density Between -1 and -2.5 Osteopenia Equal to / or below -2.5 Osteoporosis As a practical clinical guideline, osteopenia may be graded as follows: Mild -1 through -1.5 Moderate -1.6 through -2.0 Severe -2.1 through -2.4 The Z-score is the number of standard deviations above or below age-matched controls. A Z-score of less than -1.5 would be considered abnormal. References: 1. NIH Osteoporosis and Related Bone Diseases http://www.osteo.org 2. International Society for Clinical Densitometry http://www.iscd.org 3. National Osteoporosis Foundation http://www.nof.org Electronically Signed: Chin Bell MD at 10:39 EST Tel [phone], Service support , CC: Eunice Goncalves MD; TALI BOWLES Porcelain Mixer: Signed CNOV Observed: 06/21/2018 Status: COMPLETED Source: [place] 8:20 AM [facility] REPOSITORY Office Visit (INTMWS) NELLA MORRIS ([id number]) 1950 F Date Time Provider Department 06/21/18 8:20 AM LEAH ALMEIDA (SINGLE NEEDLE OPERATOR) INTMWS During your visit today, we recorded the following information about you: Referring Provider: EUNICE GONCALVES [[id number]] Allergies As of Date: 06/21/2018 Noted Allergy Reaction LATEX 04/06/2007 2 - Rash 9 - Itching ACTONEL (RISEDRONATE SODIUM) 10/30/2005 8 - GI Upset FOSAMAX (ALENDRONATE SODIUM) 10/30/2005 8 - GI Upset Date Reviewed: 06/18/2018 Reviewed by: Nancy Quinn LPN - Fully Assessed Primary Visit Diagnosis:Exposure to TB [Z20.1] Prescriptions as of 06/21/2018 Sig: NITROFURANTOIN MONOHYDRATE AND * Take 1 capsule by mouth twice* TRAMADOL 50 MG TABLET Take 1 tablet by mouth twice * FLONASE NASAL Use in the nose. ACETAMINOPHEN 325 MG TABLET Take 650 mg by mouth every 6 * TRAMADOL 50 MG TABLET Take 1-2 tablets by mouth carl* ALPRAZOLAM 0.5 MG TABLET Take 1 tablet by mouth at bed* BUPROPION HCL SR 150 MG TABLE* Take 1 tablet by mouth twice * CHOLECALCIFEROL (VITAMIN D3) * TAKE ONE CAPSULE BY MOUTH ONC* MELOXICAM 15 MG TABLET Take 1 tablet by mouth once d* LEVOTHYROXINE 50 MCG TABLET Take 1 tablet by mouth once d* CITALOPRAM 40 MG TABLET TAKE ONE TABLET BY MOUTH ONCE* PANTOPRAZOLE 40 MG TABLET,DEL* TAKE 1 TABLET BY MOUTH DAILY * TIZANIDINE 4 MG TABLET Take 1 tablet by mouth twice * BUSPIRONE 15 MG TABLET Take 1.5 tablets by mouth twi* HYDROXYZINE HCL 25 MG TABLET Take 1 tablet by mouth three * LOSARTAN 25 MG TABLET On Hold because of low blood * Patient not taking: Reported on 06/08/2018 CELECOXIB 200 MG CAPSULE Take 1 capsule by mouth once * Patient not taking: Reported on 06/08/2018 CHOLECALCIFEROL (VITAMIN D3) * Take 1 capsule by mouth once * MELATONIN 5 MG TABLET Take 1 tablet by mouth daily * FEXOFENADINE 180 MG TABLET Take 180 mg by mouth once carol ann* CALCIUM CARBONATE 600 MG (1,5* Take 1 tablet by mouth twice * * FISH OIL 1,000 MG CAPSULE 2 daily * VITAMIN B-12 1,000 MCG TABLET Take one(1) tablet daily. 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 Anxiety [F41.9] T12 compression fracture (HCC) [S22.080A] INVALID FOR* Cervical disc disorder of mid-cervical region [*INVALID FOR* Spinal stenosis, lumbar region, without neuroge*INVALID FOR* Encounter Status:Closed by VICTOR MANUEL WOODARD LPN on 06/21/18 Observed: 06/18/2018 Status: F Source: [place] URINE CULTURE 2:36 PM [facility] REPOSITORY Sp. Request/Comment: - Specimen received in preservative Culture Result - No growth (<1,000 CFU/ml) Performed By: #### URCUL #### [facility] [address] [place], [place] [address] PROGRESS Observed: 06/18/2018 Status: COMPLETED Source: [place] 2:34 PM [facility] REPOSITORY HNO ID: [id number] Author: Eunice Goncalves Service: (none) Author Type: Physician Type: Progress Notes Filed: 07/01/2018 11:58 PM Note Text: Patient presents with: Recheck: Follow up SUBJECTIVE: Nella Morris is a 67 year old year old lady here today for 6 month follow up appointment for review of medical conditions. Some crampy pain in bladder area. Pushing fluids already. Reviewed that needs Rheumatology evaluation for osteoporosis treatment. Wants to see Dr. Bowles at [facility] per friend's recommendation. Noted exposure to TB. Hep C and HIV potential. Stressors noted. Son moved back to [place]. Health issues discussed. Blood pressure had been controlled without meds. 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 acetaminophen (TYLENOL) 325 mg tablet Take 650 mg by mouth every 6 hours as needed. ALPRAZolam (XANAX) 0.5 mg tablet Take 1 tablet by mouth at bedtime as needed for Anxiety for up to 90 days. May take whole pill during day as needed for Anxiety and SOB related to throat/laryngospasm buPROPion SR (ZYBAN SR; WELLBUTRIN SR) 150 mg 12 hr tablet Take 1 tablet by mouth twice daily. As directed traMADol (ULTRAM) 50 mg tablet Take 1 tablet by mouth every 6 hours as needed for up to 60 days. cholecalciferol, Vitamin D3, (VITAMIN D3) 50,000 unit cap capsule TAKE ONE CAPSULE BY MOUTH ONCE A WEEK meloxicam (MOBIC) 15 mg tablet Take 1 tablet by mouth once daily. Take with food. levothyroxine (SYNTHROID) 50 mcg tablet Take 1 tablet by mouth once daily. citalopram (CELEXA) 40 mg tablet TAKE ONE TABLET BY MOUTH ONCE DAILY pantoprazole DR (PROTONIX) 40 mg tablet TAKE 1 TABLET BY MOUTH DAILY 30 MINUTES BEFORE BREAKFAST, TAKE ON AN EMPTY STOMACH tiZANidine (ZANAFLEX) 4 mg tablet Take 1 tablet by mouth twice daily as needed. busPIRone (BUSPAR) 15 mg tablet Take 1.5 tablets by mouth twice daily. hydrOXYzine HCl (ATARAX) 25 mg tablet Take 1 tablet by mouth three times daily as needed for Itching/Rash. FOR ITCHING fexofenadine (ALVINA) 180 mg tablet Take 180 mg by mouth once daily. calcium carbonate 600 mg-cholecalciferol 200 units (CALCIUM 600 + D,3,) 600 mg(1,500mg) -200 unit Tab Take 1 tablet by mouth twice daily. traMADol (ULTRAM) 50 mg tablet Take 1-2 tablets by mouth every 6 hours as needed for Pain for up to 7 days. losartan (COZAAR) 25 mg tablet On Hold because of low blood pressures and fatigue (Patient not taking: Reported on 06/08/2018 ) celecoxib (CELEBREX) 200 mg capsule Take 1 capsule by mouth once daily. (Patient not taking: Reported on 06/08/2018 ) cholecalciferol, Vitamin D3, (VITAMIN D3) 50,000 unit cap capsule Take 1 capsule by mouth once each week. Melatonin 5 mg tab Take 1 tablet by mouth daily at bedtime. omega-3 fatty acids/vitamin e(FISH OIL 1,000 MG CAP) 2 daily cyanocobalamin(VITAMIN B-12 1,000 MCG TAB) Take one(1) tablet daily. No current facility-administered medications for this visit. OBJECTIVE: BP 134/90 Pulse 84 Resp 16 Wt 69.4 kg (153 lb) BMI 29.88 kg/m? Patient is alert, oriented times 3, no apparent distress, affect is bright, reactive. Last 5 Encounter BP Readings: Date: BP: 06/18/2018 134/90 06/08/2018 143/82 04/30/2018 138/88 12/11/2017 130/62 10/02/2017 132/80 Heart: Regular rate, rhythm, no murmurs, gallops, rubs. Lungs: Clear to auscultation, bilaterally, breathing non labored. Ext: No cyanosis, clubbing, or edema. Component Latest Ref Rng AND Units 07/13/2015 07/16/2016 07/28/2017 06/04/2018 Protein, Total 6.3 - 8.0 g/dL 7.1 6.8 Albumin 3.9 - 4.9 g/dL 4.3 4.3 Calcium 8.5 - 10.2 mg/dL 9.5 9.3 9.3 Bilirubin, Total 0.2 - 1.3 mg/dL 0.4 0.3 Alkaline Phosphatase 32 - 117 U/L 83 66 AST 13 - 35 U/L 15 14 Glucose 74 - 99 mg/dL 80 95 86 BUN 7 - 21 mg/dL 12 11 8 Creatinine 0.58 - 0.96 mg/dL 0.93 1.10 (H) 0.93 Sodium 136 - 144 mmol/L 140 140 140 Potassium 3.7 - 5.1 mmol/L 4.1 4.1 4.4 Chloride 97 - 105 mmol/L 99 102 102 CO2 22 - 30 mmol/L 25 26 26 Anion Gap 9 - 18 mmol/L 16 (H) 12 12 ALT 7 - 38 U/L 10 7 eGFR- >60 >60 >60 eGFR-All Other Races . >60 50 >60 WBC 3.70 - 11.00 k/uL 6.19 5.20 RBC 3.90 - 5.20 m/uL 4.28 4.26 Hemoglobin 11.5 - 15.5 g/dL 12.4 12.0 Hematocrit 36.0 - 46.0 % 39.6 39.1 MCV 80.0 - 100.0 fL 92.5 91.8 MCH 26.0 - 34.0 pG 29.0 28.2 MCHC 30.5 - 36.0 g/dL 31.3 30.7 RDW-CV 11.5 - 15.0 % 13.7 14.2 Platelet Count 150 - 400 k/uL 374 422 (H) MPV 9.0 - 12.7 fL 10.3 10.1 Absolute nRBC <0.01 k/uL <0.01 Triglyceride <150 mg/dL 213 (H) 185 (H) 168 (H) 187 (H) Cholesterol, Total <200 mg/dL 261 (H) 242 (H) 235 (H) 238 (H) HDL Cholesterol >39 mg/dL 58 51 (L) 65 57 VLDL Cholesterol <30 mg/dL 43 (H) 37 34 37 (H) LDL Cholesterol <100 mg/dL 160 (H) 154 (H) 136 (H) 144 (H) Fasting Time hrs FASTING fasting 12 14 TC:HDL Ratio <5.10 4.50 4.75 3.62 4.18 LDL:HDL Ratio <2.54 2.76 3.02 2.09 2.53 Non HDL Cholesterol <130 mg/dL 203 (H) 191 (H) 170 (H) 181 (H) T4 5.0 - 11.0 ug/dL 8.6 T4 Uptake 0.70 - 1.20 1.03 FTI 6.0 - 11.0 ug/dL 8.3 Vitamin D 1,25 Dihydroxy D2 pg/mL <4.0 Vitamin D 1,25 Dihydroxy D3 pg/mL 27.8 Vit D1,25 Dihydroxy 15.0 - 60.0 pg/mL 27.8 Vitamin D 25 Hydroxy 31.0 - 80.0 ng/mL 57.2 65.7 47.2 TSH 0.400 - 5.500 uU/mL 0.690 1.070 0.887 Hep C Antibody IA Negative Negative Free T4 0.9 - 1.7 ng/dL 1.3 Magnesium 1.7 - 2.3 mg/dL 2.1 ASSESSMENT AND PLAN: Encounter Diagnosis ICD-10-CM 1. Urinary urgency R39.15 UA DIP B/O URINE CULTURE 2. Pain with urination R30.9 UA DIP B/O URINE CULTURE 3. Asymptomatic postmenopausal status Z78.0 DXA-AXIAL SKELETON 4. Other osteoporosis with current pathological fracture with routine healing, subsequent encounter M80.80XD DXA-AXIAL SKELETON CONSULT TO RHEUM/IMMUN DISEASE 5. Exposure to TB Z20.1 PPD (TB INTRADERMAL 38822) B/O patient without symptoms; do here , not [place] 6. Exposure to hepatitis C Z20.5 HEP C AB IA W/CONF SCRN low risk, family 7. Exposure to HIV Z20.6 HIV 1,2 COMBO (AG/AB) low risk; family Above issues addressed with patient. Patient involved in shared decision making for management of her medical issues. History and medications reviewed. Epic updated as needed Refills taken care of and meds adjusted as indicated after reviewed history, exam and labs. Health Maintenance reviewed. Updated record and/or ordered tests as recorded. Encouraged on efforts at healthy diet and regular exercise and adequate sleep. Monitor BPs--had been running low and losartan stopped before. BPs improving since last checked. Hoping with getting pain better controlled from issues with spine as well as dealing with stressors, that BP will get back to <140/90 then ideally <130/80. Can resume losartan if needed. Labs ordered so may do if wants here but can get screening labs for HIV through [facility] if wants truly confidential. Referral to Dr. Bowles as noted in HPI. Held off on ordering labs here since will probably get labs down through his office. Will do follow up labs after that appointment as needed. The majority of the visit was spent counseling and/or coordinating care for the patient. [id number] time was at least 25 minutes. Eunice Goncalves MD CNOV Observed: 06/18/2018 Status: COMPLETED Source: [place] 1:20 PM [facility] REPOSITORY Office Visit (INTMWS) NELLA MORRIS ([id number]) 1950 F Date Time Provider Department 06/18/18 1:20 PM EUNICE GONCALVES During your visit today, we recorded the following information about you: Pulse Respiration Blood pressure Weight 84/minute 16/minute 134/90 69.4 kg Eunice Goncalves MD 07/01/2018 11:58 PM Signed Patient presents with: Recheck: Follow up SUBJECTIVE: Nella Morris is a 67 year old year old lady here today for 6 month follow up appointment for review of medical conditions. Some crampy pain in bladder area. Pushing fluids already. Reviewed that needs Rheumatology evaluation for osteoporosis treatment. Wants to see Dr. Bowles at [facility] per friend's recommendation. Noted exposure to TB. Hep C and HIV potential. Stressors noted. Son moved back to [place]. Health issues discussed. Blood pressure had been controlled without meds. 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 acetaminophen (TYLENOL) 325 mg tablet Take 650 mg by mouth every 6 hours as needed. ALPRAZolam (XANAX) 0.5 mg tablet Take 1 tablet by mouth at bedtime as needed for Anxiety for up to 90 days. May take whole pill during day as needed for Anxiety and SOB related to throat/laryngospasm buPROPion SR (ZYBAN SR; WELLBUTRIN SR) 150 mg 12 hr tablet Take 1 tablet by mouth twice daily. As directed traMADol (ULTRAM) 50 mg tablet Take 1 tablet by mouth every 6 hours as needed for up to 60 days. cholecalciferol, Vitamin D3, (VITAMIN D3) 50,000 unit cap capsule TAKE ONE CAPSULE BY MOUTH ONCE A WEEK meloxicam (MOBIC) 15 mg tablet Take 1 tablet by mouth once daily. Take with food. levothyroxine (SYNTHROID) 50 mcg tablet Take 1 tablet by mouth once daily. citalopram (CELEXA) 40 mg tablet TAKE ONE TABLET BY MOUTH ONCE DAILY pantoprazole DR (PROTONIX) 40 mg tablet TAKE 1 TABLET BY MOUTH DAILY 30 MINUTES BEFORE BREAKFAST, TAKE ON AN EMPTY STOMACH tiZANidine (ZANAFLEX) 4 mg tablet Take 1 tablet by mouth twice daily as needed. busPIRone (BUSPAR) 15 mg tablet Take 1.5 tablets by mouth twice daily. hydrOXYzine HCl (ATARAX) 25 mg tablet Take 1 tablet by mouth three times daily as needed for Itching/Rash. FOR ITCHING fexofenadine (ALVINA) 180 mg tablet Take 180 mg by mouth once daily. calcium carbonate 600 mg-cholecalciferol 200 units (CALCIUM 600 + D,3,) 600 mg(1,500mg) -200 unit Tab Take 1 tablet by mouth twice daily. traMADol (ULTRAM) 50 mg tablet Take 1-2 tablets by mouth every 6 hours as needed for Pain for up to 7 days. losartan (COZAAR) 25 mg tablet On Hold because of low blood pressures and fatigue (Patient not taking: Reported on 06/08/2018 ) celecoxib (CELEBREX) 200 mg capsule Take 1 capsule by mouth once daily. (Patient not taking: Reported on 06/08/2018 ) cholecalciferol, Vitamin D3, (VITAMIN D3) 50,000 unit cap capsule Take 1 capsule by mouth once each week. Melatonin 5 mg tab Take 1 tablet by mouth daily at bedtime. omega-3 fatty acids/vitamin e(FISH OIL 1,000 MG CAP) 2 daily cyanocobalamin(VITAMIN B-12 1,000 MCG TAB) Take one(1) tablet daily. No current facility-administered medications for this visit. OBJECTIVE: BP 134/90 Pulse 84 Resp 16 Wt 69.4 kg (153 lb) BMI 29.88 kg/m? Patient is alert, oriented times 3, no apparent distress, affect is bright, reactive. Last 5 Encounter BP Readings: Date: BP: 06/18/2018 134/90 06/08/2018 143/82 04/30/2018 138/88 12/11/2017 130/62 10/02/2017 132/80 Heart: Regular rate, rhythm, no murmurs, gallops, rubs. Lungs: Clear to auscultation, bilaterally, breathing non labored. Ext: No cyanosis, clubbing, or edema. Component Latest Ref Rng AND Units 07/13/2015 07/16/2016 07/28/2017 06/04/2018 Protein, Total 6.3 - 8.0 g/dL 7.1 6.8 Albumin 3.9 - 4.9 g/dL 4.3 4.3 Calcium 8.5 - 10.2 mg/dL 9.5 9.3 9.3 Bilirubin, Total 0.2 - 1.3 mg/dL 0.4 0.3 Alkaline Phosphatase 32 - 117 U/L 83 66 AST 13 - 35 U/L 15 14 Glucose 74 - 99 mg/dL 80 95 86 BUN 7 - 21 mg/dL 12 11 8 Creatinine 0.58 - 0.96 mg/dL 0.93 1.10 (H) 0.93 Sodium 136 - 144 mmol/L 140 140 140 Potassium 3.7 - 5.1 mmol/L 4.1 4.1 4.4 Chloride 97 - 105 mmol/L 99 102 102 CO2 22 - 30 mmol/L 25 26 26 Anion Gap 9 - 18 mmol/L 16 (H) 12 12 ALT 7 - 38 U/L 10 7 eGFR- >60 >60 >60 eGFR-All Other Races . >60 50 >60 WBC 3.70 - 11.00 k/uL 6.19 5.20 RBC 3.90 - 5.20 m/uL 4.28 4.26 Hemoglobin 11.5 - 15.5 g/dL 12.4 12.0 Hematocrit 36.0 - 46.0 % 39.6 39.1 MCV 80.0 - 100.0 fL 92.5 91.8 MCH 26.0 - 34.0 pG 29.0 28.2 MCHC 30.5 - 36.0 g/dL 31.3 30.7 RDW-CV 11.5 - 15.0 % 13.7 14.2 Platelet Count 150 - 400 k/uL 374 422 (H) MPV 9.0 - 12.7 fL 10.3 10.1 Absolute nRBC <0.01 k/uL <0.01 Triglyceride <150 mg/dL 213 (H) 185 (H) 168 (H) 187 (H) Cholesterol, Total <200 mg/dL 261 (H) 242 (H) 235 (H) 238 (H) HDL Cholesterol >39 mg/dL 58 51 (L) 65 57 VLDL Cholesterol <30 mg/dL 43 (H) 37 34 37 (H) LDL Cholesterol <100 mg/dL 160 (H) 154 (H) 136 (H) 144 (H) Fasting Time hrs FASTING fasting 12 14 TC:HDL Ratio <5.10 4.50 4.75 3.62 4.18 LDL:HDL Ratio <2.54 2.76 3.02 2.09 2.53 Non HDL Cholesterol <130 mg/dL 203 (H) 191 (H) 170 (H) 181 (H) T4 5.0 - 11.0 ug/dL 8.6 T4 Uptake 0.70 - 1.20 1.03 FTI 6.0 - 11.0 ug/dL 8.3 Vitamin D 1,25 Dihydroxy D2 pg/mL <4.0 Vitamin D 1,25 Dihydroxy D3 pg/mL 27.8 Vit D1,25 Dihydroxy 15.0 - 60.0 pg/mL 27.8 Vitamin D 25 Hydroxy 31.0 - 80.0 ng/mL 57.2 65.7 47.2 TSH 0.400 - 5.500 uU/mL 0.690 1.070 0.887 Hep C Antibody IA Negative Negative Free T4 0.9 - 1.7 ng/dL 1.3 Magnesium 1.7 - 2.3 mg/dL 2.1 ASSESSMENT AND PLAN: Encounter Diagnosis ICD-10-CM 1. Urinary urgency R39.15 UA DIP B/O URINE CULTURE 2. Pain with urination R30.9 UA DIP B/O URINE CULTURE 3. Asymptomatic postmenopausal status Z78.0 DXA-AXIAL SKELETON 4. Other osteoporosis with current pathological fracture with routine healing, subsequent encounter M80.80XD DXA-AXIAL SKELETON CONSULT TO RHEUM/IMMUN DISEASE 5. Exposure to TB Z20.1 PPD (TB INTRADERMAL 84591) B/O patient without symptoms; do here , not [place] 6. Exposure to hepatitis C Z20.5 HEP C AB IA W/CONF SCRN low risk, family 7. Exposure to HIV Z20.6 HIV 1,2 COMBO (AG/AB) low risk; family Above issues addressed with patient. Patient involved in shared decision making for management of her medical issues. History and medications reviewed. Epic updated as needed Refills taken care of and meds adjusted as indicated after reviewed history, exam and labs. Health Maintenance reviewed. Updated record and/or ordered tests as recorded. Encouraged on efforts at healthy diet and regular exercise and adequate sleep. Monitor BPs--had been running low and losartan stopped before. BPs improving since last checked. Hoping with getting pain better controlled from issues with spine as well as dealing with stressors, that BP will get back to <140/90 then ideally <130/80. Can resume losartan if needed. Labs ordered so may do if wants here but can get screening labs for HIV through [facility] if wants truly confidential. Referral to Dr. Bowles as noted in HPI. Held off on ordering labs here since will probably get labs down through his office. Will do follow up labs after that appointment as needed. The majority of the visit was spent counseling and/or coordinating care for the patient. [id number] time was at least 25 minutes. MD Eunice Quinn MD 06/18/2018 2:39 PM Signed BONE MINERAL DENSITY PATIENT INSTRUCTIONS Bone mineral density testing measures the amount of calcium in certain parts of your bones. This information determines how strong your bones are. The test is used to detect osteoporosis, a disease in which the bone's mineral content and density are low, increasing a person's risk of fractures. The lumbar spine (lower back) and the hip are the skeletal sites usually examined. For the test, remember that: 1. You cannot take this test if you are . 2. Eat a normal diet on the day of the test. 3. Take your medications as you normally would. 4. DO NOT take calcium supplements (such as Tums) for 24 hours before the test. 5. On the day of the test, leave valuables (jewelry or credit cards) at home. 6. The test should be performed prior to oral, rectal or IV contrast studies, or at least 7 days after any of these studies. For the test, you may be asked to wear a hospital gown. You will lie on your back, on a padded table, in a comfortable position. Generally, you can resume your usual activities immediately. Referring Provider: EUNICE GONCALVES [[id number]] Allergies As of Date: 06/18/2018 Noted Allergy Reaction LATEX 04/06/2007 2 - Rash 9 - Itching ACTONEL (RISEDRONATE SODIUM) 10/30/2005 8 - GI Upset FOSAMAX (ALENDRONATE SODIUM) 10/30/2005 8 - GI Upset Date Reviewed: 06/18/2018 Reviewed by: Nancy Quinn LPN - Fully Assessed Reason for Visit: Recheck [92] Cmt: Follow up Primary Visit Diagnosis:Urinary urgency [R39.15] Other Visit Diagnoses:Pain with urination [R30.9] Asymptomatic postmenopausal status [Z78.0] Other osteoporosis with current pathological fracture with routine healing, subsequent encounter [M80.80XD] Exposure to TB [Z20.1] Comment:patient without symptoms; do here , not [place] Exposure to hepatitis C [Z20.5] Comment:low risk, family Exposure to HIV [Z20.6] Comment:low risk; family Contusion of left calf, sequela [S80.12XS] Contusion of back wall of thorax, unspecified laterality, sequela [S20.229S] Compression fracture of T12 vertebra with routine healing [S22.080D] Comment:still with pain Order(s):UA DIP B/O [9797326] Order #: [id number] URINE CULTURE [SQURCUL] Order #: [id number]. #:[id number] [] nitrofurantoin monohydrate and macrocrystal (MACROBID) 100 mg capsuleTake 1 capsule by mouth twice daily with meals for 7 days.Disp: 14 capsuleRfl: 0 DXA-AXIAL SKELETON [[id number]] Order #: [id number] FUTURE CONSULT TO RHEUM/IMMUN DISEASE [2138] Order #: [id number]: 1 PPD (TB INTRADERMAL 95072) B/O [[id number]] Order #: [id number] HIV 1,2 COMBO (AG/AB) [SQHIV12] Order #: [id number] FUTURE HEP C AB IA W/CONF SCRN [[id number]] Order #: [id number] FUTURE Prescriptions as of 06/18/2018 Sig: X TRAMADOL 50 MG TABLET Take 1 tablet by mouth twice * FLONASE NASAL Use in the nose. ACETAMINOPHEN 325 MG TABLET Take 650 mg by mouth every 6 * ALPRAZOLAM 0.5 MG TABLET Take 1 tablet by mouth at bed* BUPROPION HCL SR 150 MG TABLE* Take 1 tablet by mouth twice * CHOLECALCIFEROL (VITAMIN D3) * TAKE ONE CAPSULE BY MOUTH ONC* MELOXICAM 15 MG TABLET Take 1 tablet by mouth once d* LEVOTHYROXINE 50 MCG TABLET Take 1 tablet by mouth once d* CITALOPRAM 40 MG TABLET TAKE ONE TABLET BY MOUTH ONCE* PANTOPRAZOLE 40 MG TABLET,DEL* TAKE 1 TABLET BY MOUTH DAILY * TIZANIDINE 4 MG TABLET Take 1 tablet by mouth twice * BUSPIRONE 15 MG TABLET Take 1.5 tablets by mouth twi* HYDROXYZINE HCL 25 MG TABLET Take 1 tablet by mouth three * FEXOFENADINE 180 MG TABLET Take 180 mg by mouth once carol ann* CALCIUM CARBONATE 600 MG (1,5* Take 1 tablet by mouth twice * NITROFURANTOIN MONOHYDRATE AND * Take 1 capsule by mouth twice* X TRAMADOL 50 MG TABLET Take 1-2 tablets by mouth carl* LOSARTAN 25 MG TABLET On Hold because of low blood * Patient not taking: Reported on 06/08/2018 CELECOXIB 200 MG CAPSULE Take 1 capsule by mouth once * Patient not taking: Reported on 06/08/2018 CHOLECALCIFEROL (VITAMIN D3) * Take 1 capsule by mouth once * MELATONIN 5 MG TABLET Take 1 tablet by mouth daily * * FISH OIL 1,000 MG CAPSULE 2 daily * VITAMIN B-12 1,000 MCG TABLET Take one(1) tablet daily. Problem List As Of Date 06/18/2018 Noted Resolved Fibromyalgia [TGE1999] INVALID FOR* Recurrent major depressive disorder, in remissi*INVALID FOR* PERSISTENT INSOMNIA [G47.00] INVALID FOR* ESOPHAGEAL REFLUX [K21.9] INVALID FOR* ALLERGIC RHINITIS NOS [J30.9] INVALID FOR* Osteoporosis with current pathological fracture* DYSMETABOLIC SYNDROME X [E88.81] SEC HYPERPARATHYROID, NON-RENAL [E21.1] INVALID FOR* MALAISE AND FATIGUE NEC [R53.81, R53.83] INVALID FOR* HYPERLIPIDEMIA NEC/NOS [E78.5] INVALID FOR* 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 Anxiety [F41.9] T12 compression fracture (HCC) [S22.080A] INVALID FOR* Cervical disc disorder of mid-cervical region [*INVALID FOR* Spinal stenosis, lumbar region, without neuroge*INVALID FOR* Other instructions from your clinician: BONE MINERAL DENSITY PATIENT INSTRUCTIONS Bone mineral density testing measures the amount of calcium in certain parts of your bones. This information determines how strong your bones are. The test is used to detect osteoporosis, a disease in which the bone's mineral content and density are low, increasing a person's risk of fractures. The lumbar spine (lower back) and the hip are the skeletal sites usually examined. For the test, remember that: 1. You cannot take this test if you are . 2. Eat a normal diet on the day of the test. 3. Take your medications as you normally would. 4. DO NOT take calcium supplements (such as Tums) for 24 hours before the test. 5. On the day of the test, leave valuables (jewelry or credit cards) at home. 6. The test should be performed prior to oral, rectal or IV contrast studies, or at least 7 days after any of these studies. For the test, you may be asked to wear a hospital gown. You will lie on your back, on a padded table, in a comfortable position. Generally, you can resume your usual activities immediately. Prescriptions ordered this encounter Disp Refills Start End NITROFURANTOIN MONOHYDRATE AND MACROCR* 14 c* 0 06/18/2018 06/25/2018 Route: ORAL Sig: Take 1 capsule by mouth twice daily with meals for 7 days. TRAMADOL 50 MG TABLET 30 t* 1 06/18/2018 06/25/2018 Class: Print RX Cmt: 30 pills is for 1 month supply; with 1 refill lasts 60 days. Chronic pain so does not need to take multiple times a day. Route: ORAL Sig: Take 1 tablet by mouth twice daily as needed for up to 60 days. Medications Discontinued During This Encounter nitrofurantoin monohydrate and macro* 14 c* 0 02/13/2017 06/18/2018 Route: ORAL Sig: Take 1 capsule by mouth twice daily with meals for 7 days. Disc: Reason for discontinue is not on file. traMADol (ULTRAM) 50 mg tablet 30 t* 1 04/30/2018 06/18/2018 Class: Print RX Cmt: 30 pills for at least 30 days; with 1 RF this prescription can be fore 60 days Route: ORAL Sig: Take 1 tablet by mouth every 6 hours as needed for up to 60 days. Disc: Reason for discontinue is not on file. Disposition: Return in about 6 months (around 12/16/2018) for 6 months follow up. Follow-up and Disposition History Recorded Letter Text HIV Antibody Test* Infection with HIV, which stands for human immunodeficiency virus, is posing a growing threat to the health of men and women in the [place]. It leads to a condition called AIDS, or acquired immunodeficiency syndrome. This is a disease that results in long-term illness and . You many have heard about high rates of HIV infection and AIDS in homosexual (fox) men, drug users and other groups. But you may not know that the rate of infection is rising in women. In fact, heterosexual (straight) women are one of the groups in whom the rate of infection is rising the most rapidly. AIDS is the fifth leading cause of in women of reproductive age in the [place].* Before an HIV antibody test can be given in [place], consent is needed. If you have any questions, please ask your doctor, counselor, or health care provider. 1. What is the HIV Antibody Test? The HIV antibody test is a blood test. The test shows if you have antibodies to the virus that causes AIDS. A sample of your blood will be taken from your arm with a needle. If the first test shows that you have antibodies, a series of tests including a different test will be done on the same blood sample to make sure the first test was correct. A positive test result means that you have been exposed to the virus and are infected. It does not mean that you have AIDS or that you necessarily will become sick with AIDS in the future. A negative test means that you are probably not infected with the virus. It takes the body time to produce HIV antibodies. If you have been exposed to HIV recently, you need to be retested in several months to make sure you are not infected. Your doctor or counselor will explain this to you. 2. Voluntary Testing Taking an HIV antibody test is voluntary. You do not have to take the test. Consent may be withdrawn at any time before you leave the premises where your blood is drawn for the test. (In-patient=1 hour after blood is drawn). If you are under age 18, you may consent to be given an HIV test. If you do not wish anyone to know your test result or even that you have been tested. You can go to an anonymous test site. This is a place where you can receive counseling and the HIV test without giving your name or address. You can find the nearest anonymous test site by calling the AIDS Hotline 5-237-062-QCCN. 3. Behaviors that Pose Risk Most AIDS infections are spread through certain sexual activities or sharing needles. Either anal or vaginal intercourse with an infected individual can transmit the virus. Oral intercourse with an infected individual may also spread the infection. 4. What is the Value of an HIV Antibody Test? If you test negative: You can learn how to continue to avoid getting infected; ask your counselor for advice. Getting education through counseling is the galeana to preventing the spread of AIDS. If you test positive: A. You can learn how to avoid giving the virus to others. B. With this information, your doctor can take better care of you. C. If you are a women or a man thinking about having a baby, you can learn about the risk to your baby. 5. * If you are HIV positive, you can pass the virus to your baby. The virus can affect both the woman and the fetus before and after the . Effect on the fetus: HIV infection poses many risks to the growing fetus. The fetus can become infected before or during , even if the mother has no signs of illness. About 14-35% of women who are infected with HIV pass on the virus to the fetus during or delivery. If you are and have tested positive for HIV, you may wish to seek counseling about your options. Testing should be done as early in as possible to keep your options open. Current research indicates that effective treatment exists to reduce the chance of transmission of the virus to the baby if early diagnosis is made. Delivery: The type of delivery is usually not affected by HIV infection. is not thought to lower the risk to the fetus of getting the virus from the mother. Breast-feeding: Because HIV has been found in breast milk, a mother who is breast-feeding may be able to infect her . Therefore, HIV-positive mothers are advised not to breast-feed their babies. 6. Confidentiality of Test Results If you take the HIV antibody test, your test results are confidential. Under [place] Law, confidential HIV related information can only be given to people you allow to have it by signing a release form, or to those persons listed below. Because [facility] is not an anonymous test site, results of your HIV antibody test will be handled by a limited number of designated non-physicians during the course of their everyday duties. Those employees are held to the strictest of confidentiality regulations. 7. Risks involved with Disclosure and Sources of Help If you test positive, you should be careful about telling others what your test showed. Some HIV positive people have been discriminated against by employers, landlords, and others. If you experience discrimination because of release of HIV related information, you may contact the [place] AIDS Hotline at 2-022-028-IFEU. 8. For More Information For a list of resources for further counseling or support, ask your doctors or counselor. If you have further questions about HIV antibody testing, you may contact the [place] AIDS Hotline at 7-228-438-SWCR. 9. Occupational Exposure Related Test If this test is related to an occupational exposure, the test is done without charge to this consenting individual. Who can receive HIV related information? Under [facility] Public Health Law, HIV related information is confidential but will be given: A. To you and your physician B. To the Department of Health or health Commissioner C. HIV related information can be given to your spouse of sexual partner D. To your legal guardian E. To a person authorized by you or Your guardian in a written release F. To agencies involved in screening your donated body parts G. To health care facility groups conducting program reviews H. To law enforcement authorities with a search warrant or subpoena I. To health care providers who are treating or caring for you J. To Medicaid, Medicare, and Public assistance programs. ____ Informed Consent to HIV Antibody Test ____I have reviewed the information in the informed consent of HIV Antibody Test. My questions about the HIV test have been answered, and I agree to take the HIV antibody test. ____I DO NOT want an HIV test. After getting the information on this sheet, I have decided not to be tested for HIV at this time. I realilze that if I am not tested, I will not know if I am infected with HIV and will not be able to get HIV medicine for me or my unborn baby. I know I can get tested for HIV in the future if I want to. Date AND signature of person who will be tested (or guardian, if appropriate) Witness *Adapted from The [employer], [address] [place] [address], , Josesitotimmy HENNING [id number] Adapted from the [facility] Informed Consent to HIV Antibody test Encounter Status:Closed by EUNICE GONCALVES MD on 07/01/18 PROGRESS Observed: 06/08/2018 Status: COMPLETED Source: [place] 2:10 PM [facility] REPOSITORY HNO ID: [id number] Author: Barb Hines ([facility]) Jovi Service: (none) Author Type: Physician Regrinder Operator Type: Progress Notes Filed: 06/08/2018 5:34 PM Note Text: [facility] [address] [id number] 06/08/2018 ASSESSMENT AND PLAN: Assessment : Encounter Diagnosis ICD-10-CM 1. Other osteoporosis with current pathological fracture with routine healing, subsequent encounter M80.80XD 2. Spinal stenosis, lumbar region, without neurogenic claudication M48.061 3. T12 compression fracture (HCC) S22.080A 4. Cervical disc disorder of mid-cervical region M50.920 Discussion: Ms. Morris Is a pleasant 67-year-old female here today for evaluation of multiple spinal complaints. She is accompanied by her for this visit. Her primary complaint regards to 12 compression fracture that occurred about 6-7 weeks ago as a result of a fall at home. Secondary complaints involve neck pain for about 5 years and includes radiating symptoms in the upper extremities and third complaint involves low back pain and LEFT lower extremity radiating symptoms as noted in the office note below. She has undergone a course of treatment with Dr. Álvarez in [place], [place], who has treated her with selective nerve root blocks on the left at L5 and S1 as well as L5-S1 epidural steroid. She has also had cervical steroid injections at the C6 7 level in May 2017. 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 Overall, pain has been diminishing in the lower thoracic spine. She brought in MRIs of cervical and lumbar spine and lumbar x-rays and a bone densitometry study completed September 11, 2016. She does have cervical disc degeneration with moderate narrowing of the central canal at C6 7, lumbar disc degeneration with vacuum disc phenomenon and foraminal narrowing at L4 5 and L5-S1 mostly toward the left, a T12 anterior wedge compression fracture without any apparent spinal cord compromise or retropulsion. In spite of all these issues, it would appear that her main concern is very low bone density at her last study with spinal bone density T-scores in the -4 range. Hip and femoral neck scores are all in the -3 range. This last study September 2016 reflex or worsening since her prior study from 2008. This is considerably worse than normal for her age. We discussed this in great deal during today's visit and its implications for caution with any further steroid medications. On exam, she does have point tenderness over the T12 spinous process posteriorly as expected. Her motion in all directions does reproduce central back pain in this area and motion itself is limited. She has good upper and lower extremity strength and reflexes. Her stance is flexed and her gait is slow but steady and even. Balance is diminished but appears age-appropriate. After lengthy discussion and test review, I would not recommend further injections based on her own density issues. She will discuss her bone density problems further with primary care and her cassandra architect local to her home and I offered referral to rheumatology at [facility] if she would like to go forward with that. I believe she will need somebody to aggressively manage her bone density issues before she would ever be considered possible surgical candidate even for something as relatively simple as kyphoplasty or vertebroplasty. She is getting somewhat better on her own clinically so the risk of surgery certainly would seem to outweigh the potential benefits. She will follow-up with me on an as-needed basis. Plan : SURGICAL RECOMMENDATIONS: -See above. Surgical treatment is not recommended at this point secondary to bone density and spontaneous clinical improvement ACTIVITY RECOMMENDATIONS: -The patient is encouraged to avoid bed rest and maintain normal activity. -The patient was cautioned carefully to avoid any situation in which she could experience further falls and this includes footwear recommendations and home safety recommendations regarding rugs and uneven steps in and around the home. FOLLOW-UP: This document has been created with the use of voice recognition technology. It may contain inaccuracies: (e.g. misspellings, inaccurate syntax or word sense) that have escaped review. Time spent: 60 minutes with greater than 50% in face to face consultation with the patient. cc: Eunice Goncalves MD [address] [facility] [id number] Results of consultation to be transmitted via electronic medical record for those providers who practice within [facility] or with access to [facility] via [facility], or via letter. Nella Morris is a 67 year old female who was seen today at the kind request of Eunice Goncalves. A copy of this office note is being sent to the requesting physician through via electronic medical record. CHIEF COMPLAINT: Back pain = Leg symptoms Left > Right HPI: Her back pain is at 6/10 and is constant. The back pain is located in thoracic spine and is described as aching and sharp. Her leg symptoms are at 6/10 and are constant. This is located in the left thigh, below the left knee, in the left foot and right hip and is described as aching, pins and needles and sharp. The symptoms are exacerbated by sleeping, sitting, laying down, walking and standing and improved by laying down, positioning, heat and injections. She states that these symptoms began 5 years ago and are related to a fall down 3 stairs. History of bowel or bladder dysfunction: Yes, IBS History of previous spinal surgery: No History of spinal trauma: Yes, pt states falling down 3 stairs x1 month ago, including multiple falls in past. 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 This was completed 1 years ago. The therapy provided a notable amount of relief, however it did not last. Spinal Injections: She has gotten prior spinal injections. Lumbar transforaminal epidural steroid injection, Lumbar Epidural Other: Chiropractice care: Acupuncture Massage therapy Current Outpatient Prescriptions: traMADol (ULTRAM) 50 mg tablet Take 1-2 tablets by mouth every 6 hours as needed for Pain for up to 7 days. Disp: 56 tablet Rfl: 0 ALPRAZolam (XANAX) 0.5 mg tablet Take 1 tablet by mouth at bedtime as needed for Anxiety for up to 90 days. May take whole pill during day as needed for Anxiety and SOB related to throat/laryngospasm Disp: 180 tablet Rfl: 0 buPROPion SR (ZYBAN SR; WELLBUTRIN SR) 150 mg 12 hr tablet Take 1 tablet by mouth twice daily. As directed Disp: 180 tablet Rfl: 3 traMADol (ULTRAM) 50 mg tablet Take 1 tablet by mouth every 6 hours as needed for up to 60 days. Disp: 30 tablet Rfl: 1 cholecalciferol, Vitamin D3, (VITAMIN D3) 50,000 unit cap capsule TAKE ONE CAPSULE BY MOUTH ONCE A WEEK Disp: 12 capsule Rfl: 4 meloxicam (MOBIC) 15 mg tablet Take 1 tablet by mouth once daily. Take with food. Disp: 90 tablet Rfl: 3 levothyroxine (SYNTHROID) 50 mcg tablet Take 1 tablet by mouth once daily. Disp: 90 tablet Rfl: 3 citalopram (CELEXA) 40 mg tablet TAKE ONE TABLET BY MOUTH ONCE DAILY Disp: 90 tablet Rfl: [address] (PROTONIX) 40 mg tablet TAKE 1 TABLET BY MOUTH DAILY 30 MINUTES BEFORE BREAKFAST, TAKE ON AN EMPTY STOMACH Disp: 90 tablet Rfl: 3 tiZANidine (ZANAFLEX) 4 mg tablet Take 1 tablet by mouth twice daily as needed. Disp: 180 tablet Rfl: 3 busPIRone (BUSPAR) 15 mg tablet Take 1.5 tablets by mouth twice daily. Disp: 270 tablet Rfl: 3 hydrOXYzine HCl (ATARAX) 25 mg tablet Take 1 tablet by mouth three times daily as needed for Itching/Rash. FOR ITCHING Disp: 90 tablet Rfl: 3 losartan (COZAAR) 25 mg tablet On Hold because of low blood pressures and fatigue Disp: Rfl: celecoxib (CELEBREX) 200 mg capsule Take 1 capsule by mouth once daily. Disp: 90 capsule Rfl: 3 cholecalciferol, Vitamin D3, (VITAMIN D3) 50,000 unit cap capsule Take 1 capsule by mouth once each week. Disp: 12 capsule Rfl: 3 Melatonin 5 mg tab Take 1 tablet by mouth daily at bedtime. Disp: Rfl: 0 fexofenadine (ALVINA) 180 mg tablet Take 180 mg by mouth once daily. Disp: Rfl: calcium carbonate 600 mg-cholecalciferol 200 units (CALCIUM 600 + D,3,) 600 mg(1,500mg) -200 unit Tab Take 1 tablet by mouth twice daily. Disp: Rfl: 0 omega-3 fatty acids/vitamin e(FISH OIL 1,000 MG CAP) 2 daily Disp: Rfl: 0 cyanocobalamin(VITAMIN B-12 1,000 MCG TAB) Take one(1) tablet daily. Disp: Rfl: 0 No current facility-administered medications for this visit. Allergies: Latex; Actonel [Risedronate Sodium]; Fosamax [Alendronate Sodium] PAST MEDICAL HISTORY Diagnosis Date - Allergic rhinitis, cause unspecified 06/30/2005 - Anxiety - Cervical disc herniation herniated disc C4 and C% - DEPRESSIVE DISORDER NEC 06/30/2005 - Depressive disorder, not elsewhere classified 06/30/2005 - Diarrhea - Diverticulosis of colon (without mention of hemorrhage) - Dysmetabolic syndrome X - Esophageal reflux 06/30/2005 - External hemorrhoids without mention of complication - Fibromyalgia 06/30/2005 - Hypothyroidism 08/31/2013 - Internal hemorrhoids without mention of complication - 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 Social History Main Topics Smoking status: Never Smoker Smokeless tobacco: Never Used Comment: Father smoked in childhood home. Spouse non-smoker. Alcohol use: Yes Comment: Occasional, once or twice per month. Drug use: No FAMILY HISTORY Problem Relation Age of Onset - other (hodgkins [Other]) Father - Osteoporosis Mother - Asthma Sister - Asthma Sister - Asthma Son Youngest - Ischemic Heart Disease Mother 02/28/13, age 84. REVIEW OF SYSTEMS: Constitutional: (-) Fever (+) Night Sweats (-) Weight Gain (-) Weight Loss (+) Fatigue Cardiovascular: (-) Chest Pain (-) Palpitations (-) Lightheadedness (-) Swelling of Ankles (-) Hx Heart Surgery Respiratory: (+) Shortness of Breath (-) Cough (-) Wheezing (-) Snoring Gastrointestinal: (-) Incontinence (-) Abdominal Pain (+) Diarrhea (-) Constipation (-) Nausea/Vomiting (+) Heart Burn Endocrine: (+) Thyroid Disorder (-) Diabetes Hematologic: (-) Prolonged Bleeding (+) Easy Bruising Genitourinary: (-) Incontinence (+) Frequency (-) Urinary Urgency Skin: (-) Rashes (+) Itching (-) Other Lesions Neurologic: (-) Headache (-) Double Vision (-) Confusion (-) Paralysis (-) Vertigo (-) Syncope Psychiatric: (+) Depression (+) Anxiety (-) Delusions (-) Hallucinations (-) Suicidal Thoughts PHYSICAL EXAM: Blood pressure 143/82, pulse 78, resp. rate 18, height 5' (1.524 m), weight 154 lb (69.9 kg), SpO2 94 %. General: Patient is a(n) good historian. The patient appears approximately her stated age and is sitting uncomfortably in the examining room. The patient is short in stature and is obese in appearance. She has difficulty arising from a sitting position. She does have difficulty acquiring a full, upright position when standing. Station and Gait: flexed posture and antalgic gait leaning forward and slow pace The patient is able to but has difficulty in attempting to walk in a tandem gait. MENTAL STATUS EXAMINATION: The patient was neatly dressed and well groomed. The patient had good eye contact and rapport was easy to establish. The patient appeared to be alert and oriented in all spheres. The patient's motivation for treatment was judged based on today's encounter to be good. LUMBAR SPINE: Skin: Normal-no rashes, bruises, lesions, or signs of localized trauma., Skin color, texture and turgor normal. Lumbar Lordosis: Normal RANGE OF MOTION: Flexion: abnormal, decreased motion below expected for age and weight Pain: Yes Extension: abnormal, decreased motion below expected for age and weight Pain: Yes Lateral Bending: Right abnormal, decreased motion below expected for age and weight Pain: Yes Left abnormal, decreased motion below expected for age and weight Pain: Yes PALPATION TENDERNESS: Moderate at T12 spinous process posteriorly Hyperesthesia present: No Regional symptoms present: No Increased pain with axial loading: No Distraction: Normal Pain responses: appropriate NEUROLOGIC EXAM: MOTOR: Heel and toe walking not attempted during today's visit secondary to risk for fall Requires verbal cues to minimize cog-wheel or give-way resistance: No Hip Flexor R: 5/5 L: 5/5 Hip Adductor R: 5/5 L: 5/5 Hip Abductor R: 5/5 L: 5/5 Knee Extension R: 5/5 L: 5/5 Foot Dorsiflexion R: 5/5 L: 5/5 Foot Plantar Flexion R: /5 L: 5/5 Ext Hallicus Longus R: 5/5 L: 5/5 Toe Extensors R: 5/5 L: 5/5 Upper extremity motor strength and motion appears to be normal in all areas without focal deficit. SENSATION to Light Touch: Lumbar: L2-S1 symmetrically normal. REFLEXES: Lower Extremity: All Lower Extremity reflexes symmetrically normal. Clonus: R: 0 beats/Normal L: 0 beats/Normal Babinski Sign: Negative bilaterally. Upper Extremity: All Upper Extremity reflexes symmetrically normal. Petty's Sign: Negative bilaterally. VASCULAR: Skin appearance: Right: Warm/pink Left: Warm/pink Capillary refill: Right: brisk Left: brisk ADDITIONAL MUSCULOSKELETAL EXAM: HIP/PELVIS EXAM: Greater Trochanteric pain: Right: No Left: No Tenderness over the PSIS: Right: No Left: No SPECIAL TESTS: Straight Leg Raise: negative bilaterally Contralateral Straight Leg Raise: negative bilaterally IMAGING STUDIES: See above in the discussion section for review of imaging provided CNOV Observed: 06/08/2018 Status: COMPLETED Source: [place] 1:55 PM [facility] REPOSITORY Office Visit (SPNMED) NELLA MORRIS ([id number]) 1950 F Date Time Provider Department 06/08/18 1:55 PM BARB MENDIOLA (PAC) [place] During your visit today, we recorded the following information about you: Pulse Respiration Blood pressure Weight 78/minute 18/minute 143/82 69.9 kg Height 1.524 m ASIM Vargas 06/08/2018 5:34 PM Signed Barb Mendiola PA-C [facility] [address] [phone] 06/08/2018 ASSESSMENT AND PLAN: Assessment : Encounter Diagnosis ICD-10-CM 1. Other osteoporosis with current pathological fracture with routine healing, subsequent encounter M80.80XD 2. Spinal stenosis, lumbar region, without neurogenic claudication M48.061 3. T12 compression fracture (HCC) S22.080A 4. Cervical disc disorder of mid-cervical region M50.920 Discussion: Ms. Morris Is a pleasant 67-year-old female here today for evaluation of multiple spinal complaints. She is accompanied by her for this visit. Her primary complaint regards to 12 compression fracture that occurred about 6-7 weeks ago as a result of a fall at home. Secondary complaints involve neck pain for about 5 years and includes radiating symptoms in the upper extremities and third complaint involves low back pain and LEFT lower extremity radiating symptoms as noted in the office note below. She has undergone a course of treatment with Dr. Álvarez in [place], [place], who has treated her with selective nerve root blocks on the left at L5 and S1 as well as L5-S1 epidural steroid. She has also had cervical steroid injections at the C6 7 level in May 2017. 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 Overall, pain has been diminishing in the lower thoracic spine. She brought in MRIs of cervical and lumbar spine and lumbar x-rays and a bone densitometry study completed September 11, 2016. She does have cervical disc degeneration with moderate narrowing of the central canal at C6 7, lumbar disc degeneration with vacuum disc phenomenon and foraminal narrowing at L4 5 and L5-S1 mostly toward the left, a T12 anterior wedge compression fracture without any apparent spinal cord compromise or retropulsion. In spite of all these issues, it would appear that her main concern is very low bone density at her last study with spinal bone density T- scores in the -4 range. Hip and femoral neck scores are all in the -3 range. This last study September 2016 reflex or worsening since her prior study from 2008. This is considerably worse than normal for her age. We discussed this in great deal during today's visit and its implications for caution with any further steroid medications. On exam, she does have point tenderness over the T12 spinous process posteriorly as expected. Her motion in all directions does reproduce central back pain in this area and motion itself is limited. She has good upper and lower extremity strength and reflexes. Her stance is flexed and her gait is slow but steady and even. Balance is diminished but appears age-appropriate. After lengthy discussion and test review, I would not recommend further injections based on her own density issues. She will discuss her bone density problems further with primary care and her cassandra architect local to her home and I offered referral to rheumatology at [facility] if she would like to go forward with that. I believe she will need somebody to aggressively manage her bone density issues before she would ever be considered possible surgical candidate even for something as relatively simple as kyphoplasty or vertebroplasty. She is getting somewhat better on her own clinically so the risk of surgery certainly would seem to outweigh the potential benefits. She will follow-up with me on an as-needed basis. Plan : SURGICAL RECOMMENDATIONS: -See above. Surgical treatment is not recommended at this point secondary to bone density and spontaneous clinical improvement ACTIVITY RECOMMENDATIONS: -The patient is encouraged to avoid bed rest and maintain normal activity. -The patient was cautioned carefully to avoid any situation in which she could experience further falls and this includes footwear recommendations and home safety recommendations regarding rugs and uneven steps in and around the home. FOLLOW-UP: This document has been created with the use of voice recognition technology. It may contain inaccuracies: (e.g. misspellings, inaccurate syntax or word sense) that have escaped review. Time spent: 60 minutes with greater than 50% in face to face consultation with the patient. cc: Eunice Goncalves MD [id number] [facility] [address] Results of consultation to be transmitted via electronic medical record for those providers who practice within [facility] or with access to [facility] via MD Connect, or via letter. Nella Morris is a 67 year old female who was seen today at the kind request of Eunice Goncalves. A copy of this office note is being sent to the requesting physician through via electronic medical record. CHIEF COMPLAINT: Back pain = Leg symptoms Left > Right HPI: Her back pain is at 6/10 and is constant. The back pain is located in thoracic spine and is described as aching and sharp. Her leg symptoms are at 6/10 and are constant. This is located in the left thigh, below the left knee, in the left foot and right hip and is described as aching, pins and needles and sharp. The symptoms are exacerbated by sleeping, sitting, laying down, walking and standing and improved by laying down, positioning, heat and injections. She states that these symptoms began 5 years ago and are related to a fall down 3 stairs. History of bowel or bladder dysfunction: Yes, IBS History of previous spinal surgery: No History of spinal trauma: Yes, pt states falling down 3 stairs x1 month ago, including multiple falls in past. 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 This was completed 1 years ago. The therapy provided a notable amount of relief, however it did not last. Spinal Injections: She has gotten prior spinal injections. Lumbar transforaminal epidural steroid injection, Lumbar Epidural Other: Chiropractice care: Acupuncture Massage therapy Current Outpatient Prescriptions: traMADol (ULTRAM) 50 mg tablet Take 1-2 tablets by mouth every 6 hours as needed for Pain for up to 7 days. Disp: 56 tablet Rfl: 0 ALPRAZolam (XANAX) 0.5 mg tablet Take 1 tablet by mouth at bedtime as needed for Anxiety for up to 90 days. May take whole pill during day as needed for Anxiety and SOB related to throat/laryngospasm Disp: 180 tablet Rfl: 0 buPROPion SR (ZYBAN SR; WELLBUTRIN SR) 150 mg 12 hr tablet Take 1 tablet by mouth twice daily. As directed Disp: 180 tablet Rfl: 3 traMADol (ULTRAM) 50 mg tablet Take 1 tablet by mouth every 6 hours as needed for up to 60 days. Disp: 30 tablet Rfl: 1 cholecalciferol, Vitamin D3, (VITAMIN D3) 50,000 unit cap capsule TAKE ONE CAPSULE BY MOUTH ONCE A WEEK Disp: 12 capsule Rfl: 4 meloxicam (MOBIC) 15 mg tablet Take 1 tablet by mouth once daily. Take with food. Disp: 90 tablet Rfl: 3 levothyroxine (SYNTHROID) 50 mcg tablet Take 1 tablet by mouth once daily. Disp: 90 tablet Rfl: 3 citalopram (CELEXA) 40 mg tablet TAKE ONE TABLET BY MOUTH ONCE DAILY Disp: 90 tablet Rfl: [address] (PROTONIX) 40 mg tablet TAKE 1 TABLET BY MOUTH DAILY 30 MINUTES BEFORE BREAKFAST, TAKE ON AN EMPTY STOMACH Disp: 90 tablet Rfl: 3 tiZANidine (ZANAFLEX) 4 mg tablet Take 1 tablet by mouth twice daily as needed. Disp: 180 tablet Rfl: 3 busPIRone (BUSPAR) 15 mg tablet Take 1.5 tablets by mouth twice daily. Disp: 270 tablet Rfl: 3 hydrOXYzine HCl (ATARAX) 25 mg tablet Take 1 tablet by mouth three times daily as needed for Itching/Rash. FOR ITCHING Disp: 90 tablet Rfl: 3 losartan (COZAAR) 25 mg tablet On Hold because of low blood pressures and fatigue Disp: Rfl: celecoxib (CELEBREX) 200 mg capsule Take 1 capsule by mouth once daily. Disp: 90 capsule Rfl: 3 cholecalciferol, Vitamin D3, (VITAMIN D3) 50,000 unit cap capsule Take 1 capsule by mouth once each week. Disp: 12 capsule Rfl: 3 Melatonin 5 mg tab Take 1 tablet by mouth daily at bedtime. Disp: Rfl: 0 fexofenadine (ALVINA) 180 mg tablet Take 180 mg by mouth once daily. Disp: Rfl: calcium carbonate 600 mg-cholecalciferol 200 units (CALCIUM 600 + D,3,) 600 mg(1,500mg) -200 unit Tab Take 1 tablet by mouth twice daily. Disp: Rfl: 0 omega-3 fatty acids/vitamin e(FISH OIL 1,000 MG CAP) 2 daily Disp: Rfl: 0 cyanocobalamin(VITAMIN B-12 1,000 MCG TAB) Take one(1) tablet daily. Disp: Rfl: 0 No current facility-administered medications for this visit. Allergies: Latex; Actonel [Risedronate Sodium]; Fosamax [Alendronate Sodium] PAST MEDICAL HISTORY Diagnosis Date - Allergic rhinitis, cause unspecified 06/30/2005 - Anxiety - Cervical disc herniation herniated disc C4 and C% - DEPRESSIVE DISORDER NEC 06/30/2005 - Depressive disorder, not elsewhere classified 06/30/2005 - Diarrhea - Diverticulosis of colon (without mention of hemorrhage) - Dysmetabolic syndrome X - Esophageal reflux 06/30/2005 - External hemorrhoids without mention of complication - Fibromyalgia 06/30/2005 - Hypothyroidism 08/31/2013 - Internal hemorrhoids without mention of complication - 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 [employer] Just out of high school. Social History Main Topics Smoking status: Never Smoker Smokeless tobacco: Never Used Comment: Father smoked in childhood home. Spouse non-smoker. Alcohol use: Yes Comment: Occasional, once or twice per month. Drug use: No FAMILY HISTORY Problem Relation Age of Onset - other (hodgkins [Other]) Father - Osteoporosis Mother - Asthma Sister - Asthma Sister - Asthma Son Youngest - Ischemic Heart Disease Mother 02/28/13, age 84. REVIEW OF SYSTEMS: Constitutional: (-) Fever (+) Night Sweats (-) Weight Gain (-) Weight Loss (+) Fatigue Cardiovascular: (-) Chest Pain (-) Palpitations (-) Lightheadedness (-) Swelling of Ankles (-) Hx Heart Surgery Respiratory: (+) Shortness of Breath (-) Cough (-) Wheezing (-) Snoring Gastrointestinal: (-) Incontinence (-) Abdominal Pain (+) Diarrhea (-) Constipation (-) Nausea/Vomiting (+) Heart Burn Endocrine: (+) Thyroid Disorder (-) Diabetes Hematologic: (-) Prolonged Bleeding (+) Easy Bruising Genitourinary: (-) Incontinence (+) Frequency (-) Urinary Urgency Skin: (-) Rashes (+) Itching (-) Other Lesions Neurologic: (-) Headache (-) Double Vision (-) Confusion (-) Paralysis (-) Vertigo (-) Syncope Psychiatric: (+) Depression (+) Anxiety (-) Delusions (-) Hallucinations (-) Suicidal Thoughts PHYSICAL EXAM: Blood pressure 143/82, pulse 78, resp. rate 18, height 5' (1.524 m), weight 154 lb (69.9 kg), SpO2 94 %. General: Patient is a(n) good historian. The patient appears approximately her stated age and is sitting uncomfortably in the examining room. The patient is short in stature and is obese in appearance. She has difficulty arising from a sitting position. She does have difficulty acquiring a full, upright position when standing. Station and Gait: flexed posture and antalgic gait leaning forward and slow pace The patient is able to but has difficulty in attempting to walk in a tandem gait. MENTAL STATUS EXAMINATION: The patient was neatly dressed and well groomed. The patient had good eye contact and rapport was easy to establish. The patient appeared to be alert and oriented in all spheres. The patient's motivation for treatment was judged based on today's encounter to be good. LUMBAR SPINE: Skin: Normal-no rashes, bruises, lesions, or signs of localized trauma., Skin color, texture and turgor normal. Lumbar Lordosis: Normal RANGE OF MOTION: Flexion: abnormal, decreased motion below expected for age and weight Pain: Yes Extension: abnormal, decreased motion below expected for age and weight Pain: Yes Lateral Bending: Right abnormal, decreased motion below expected for age and weight Pain: Yes Left abnormal, decreased motion below expected for age and weight Pain: Yes PALPATION TENDERNESS: Moderate at T12 spinous process posteriorly Hyperesthesia present: No Regional symptoms present: No Increased pain with axial loading: No Distraction: Normal Pain responses: appropriate NEUROLOGIC EXAM: MOTOR: Heel and toe walking not attempted during today's visit secondary to risk for fall Requires verbal cues to minimize cog-wheel or give-way resistance: No Hip Flexor R: 5/5 L: 5/5 Hip Adductor R: 5/5 L: 5/5 Hip Abductor R: 5/5 L: 5/5 Knee Extension R: 5/5 L: 5/5 Foot Dorsiflexion R: 5/5 L: 5/5 Foot Plantar Flexion R: 5/5 L: 5/5 Ext Hallicus Longus R: 5/5 L: 5/5 Toe Extensors R: 5/5 L: 5/5 Upper extremity motor strength and motion appears to be normal in all areas without focal deficit. SENSATION to Light Touch: Lumbar: L2-S1 symmetrically normal. REFLEXES: Lower Extremity: All Lower Extremity reflexes symmetrically normal. Clonus: R: 0 beats/Normal L: 0 beats/Normal Babinski Sign: Negative bilaterally. Upper Extremity: All Upper Extremity reflexes symmetrically normal. Petty's Sign: Negative bilaterally. VASCULAR: Skin appearance: Right: Warm/pink Left: Warm/pink Capillary refill: Right: brisk Left: brisk ADDITIONAL MUSCULOSKELETAL EXAM: HIP/PELVIS EXAM: Greater Trochanteric pain: Right: No Left: No Tenderness over the PSIS: Right: No Left: No SPECIAL TESTS: Straight Leg Raise: negative bilaterally Contralateral Straight Leg Raise: negative bilaterally IMAGING STUDIES: See above in the discussion section for review of imaging provided Referring Provider: EUNICE GONCALVES [[id number]] Allergies As of Date: 06/08/2018 Noted Allergy Reaction LATEX 04/06/2007 2 - Rash 9 - Itching ACTONEL (RISEDRONATE SODIUM) 10/30/2005 8 - GI Upset FOSAMAX (ALENDRONATE SODIUM) 10/30/2005 8 - GI Upset Date Reviewed: 06/08/2018 Reviewed by: Barbara Gonzalez Ma - Fully Assessed Reason for Visit: New Patient [172] Primary Visit Diagnosis:Other osteoporosis with current pathological fracture with routine healing, subsequent encounter [M80.80XD] Other Visit Diagnoses:Spinal stenosis, lumbar region, without neurogenic claudication [M48.061] T12 compression fracture (HCC) [S22.080A] Cervical disc disorder of mid-cervical region [M50.920] Prescriptions as of 06/08/2018 Sig: FLONASE NASAL Use in the nose. ACETAMINOPHEN 325 MG TABLET Take 650 mg by mouth every 6 * TRAMADOL 50 MG TABLET Take 1-2 tablets by mouth carl* ALPRAZOLAM 0.5 MG TABLET Take 1 tablet by mouth at bed* BUPROPION HCL SR 150 MG TABLE* Take 1 tablet by mouth twice * TRAMADOL 50 MG TABLET Take 1 tablet by mouth every * CHOLECALCIFEROL (VITAMIN D3) * TAKE ONE CAPSULE BY MOUTH ONC* MELOXICAM 15 MG TABLET Take 1 tablet by mouth once d* LEVOTHYROXINE 50 MCG TABLET Take 1 tablet by mouth once d* CITALOPRAM 40 MG TABLET TAKE ONE TABLET BY MOUTH ONCE* PANTOPRAZOLE 40 MG TABLET,DEL* TAKE 1 TABLET BY MOUTH DAILY * TIZANIDINE 4 MG TABLET Take 1 tablet by mouth twice * BUSPIRONE 15 MG TABLET Take 1.5 tablets by mouth twi* CHOLECALCIFEROL (VITAMIN D3) * Take 1 capsule by mouth once * FEXOFENADINE 180 MG TABLET Take 180 mg by mouth once carol ann* CALCIUM CARBONATE 600 MG (1,5* Take 1 tablet by mouth twice * HYDROXYZINE HCL 25 MG TABLET Take 1 tablet by mouth three * Patient not taking: Reported on 06/08/2018 LOSARTAN 25 MG TABLET On Hold because of low blood * Patient not taking: Reported on 06/08/2018 CELECOXIB 200 MG CAPSULE Take 1 capsule by mouth once * Patient not taking: Reported on 06/08/2018 MELATONIN 5 MG TABLET Take 1 tablet by mouth daily * * FISH OIL 1,000 MG CAPSULE 2 daily * VITAMIN B-12 1,000 MCG TABLET Take one(1) tablet daily. Problem List As Of Date 06/08/2018 Noted Resolved Fibromyalgia [OBS1334] INVALID FOR* Recurrent major depressive disorder, in remissi*INVALID FOR* PERSISTENT INSOMNIA [G47.00] INVALID FOR* ESOPHAGEAL REFLUX [K21.9] INVALID FOR* ALLERGIC RHINITIS NOS [J30.9] INVALID FOR* Osteoporosis with current pathological fracture* DYSMETABOLIC SYNDROME X [E88.81] SEC HYPERPARATHYROID, NON-RENAL [E21.1] INVALID FOR* MALAISE AND FATIGUE NEC [R53.81, R53.83] INVALID FOR* HYPERLIPIDEMIA NEC/NOS [E78.5] INVALID FOR* 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 Anxiety [F41.9] T12 compression fracture (HCC) [S22.080A] INVALID FOR* Cervical disc disorder of mid-cervical region [*INVALID FOR* Spinal stenosis, lumbar region, without neuroge*INVALID FOR* Disposition: Return if symptoms worsen or fail to improve. Follow-up and Disposition History Recorded Encounter Status:Closed by BARB MENDIOLA PA-C on 06/08/18 LIPID PANEL, BASIC Collected: 06/04/2018 Status: F Source: [place] 8:33 AM [facility] [place] REPOSITORY TYPE CODE TESTS RESULT OUT OF REFERENCE UNITS RANGE LAB CHOL <200 mg/dL Cholesterol High 238 Result Comment: <200 mg/dL, Desirable 200-239 mg/dL, Borderline high >239 mg/dL, High LAB TRIGLY <150 mg/dL Triglyceride High 187 Result Comment: <150 mg/dL, Normal 150-199 mg/dL, Borderline high 200-499 mg/dL, High >499 mg/dL, Very high LAB HDL >39 mg/dL HDL-Cholesterol 57 Result Comment: 40-59 mg/dL, Acceptable >59 mg/dL, High: Negative risk factor for coronary heart disease <40 mg/dL, Low: Positive risk factor for coronary heart disease LAB LDL <100 mg/dL LDL-Cholesterol High 144 Result Comment: <100 mg/dL, Optimal 100-129 mg/dL, Near optimal/above optimal 130-159 mg/dL, Borderline high 160-189 mg/dL, High >189 mg/dL, Very high Secondary prevention optimal LDL Cholesterol levels are recommended to be < 70 mg/dL LAB NONHDL <130 mg/dL Non HDL High Cholesterol 181 Result Comment: <130 mg/dL, Optimal 130-159 mg/dL, Near optimal/above optimal 160-189 mg/dL, Borderline high 190-219 mg/dL, High >219 mg/dL, Very high Secondary prevention optimal non HDL Cholesterol levels are recommended to be < 100 mg/dL LAB FT hrs Fasting Time 14 LAB VLDL <30 mg/dL High VLDL Cholesterol 37 LAB TCHDL <5.10 TC:HDL Ratio 4.18 LAB LDLHDL <2.54 LDL:HDL Ratio 2.53 Result Comment: Reference: 1. National Cholesterol Education Program ATP III Guideline At-A-Glance Quick Desk Reference: National Heart, Lung, and Blood [place]. National Institutes of Health. 2001: NIH Publication No. 01-3305. 2. An International Atherosclerosis Society position paper: global recommendations for the management of dyslipidemia: executive summary, Atherosclerosis. 2014: 232(2):410-413. Performed By: #### LIPB #### [facility] [address] [place], [place] [address] EXTREMITY LOWER Observed: 06/02/2018 Status: F Source: [place] WITHOUT CONTRA 8:01 AM [facility] REPOSITORY [facility] Imaging Services [address] [place] [address] Extremity Lower without Contra MR#: [id number] Acct: [id number] Name: NELLA MORRIS Rep #: [id number] : 1950 F 67 From: Chin Bell MD PCP: Eunice Goncalves MD Status: REG CLI Study: Extremity Lower without Contra Date of Exam: 06/02/18 Exam# [id number] Ordering Dr: Eunice Goncalves MD STUDY: CT SCAN LOWER EXTREMITY LEFT REASON FOR EXAM: Female, 67 years old. Pain involving the entire left lower extremity. RADIATION DOSAGE (If Supplied By Facility): CTDIvol = ( 7.82 ) mGy, DLP = ( 1226.25 ) mGycm. Individualized dose optimization techniques were used for this CT.? TECHNIQUE: Multiple axial tomographic images are obtained from the hip joint down to the ankle joint without intravenous contrast administration. Coronal and sagittal reconstruction was obtained as well. COMPARISON: None. FINDINGS: The patient is status post left total hip replacement. There is good alignment. No fracture or dislocation is seen. The soft tissues are unremarkable. CT/Extremity Lower without Contra IMPRESSION: Unremarkable examination. Electronically Signed: Chin Bell MD at 14:19 EDT Tel [phone], Service support , CC: Eunice Goncalves MD Porcelain Mixer: Signed CNPTOUTREACH Observed: 06/01/2018 Status: COMPLETED Source: [place] 12:00 AM [facility] REPOSITORY Patient Outreach (FAMPST) NELLA MORRIS ([id number]) 1950 F Date Time Provider Department 06/01/18 EUNICE GONCALVES [facility] During your visit today, we recorded the following information about you: Allergies As of Date: 06/01/2018 Noted Allergy Reaction LATEX 04/06/2007 2 - Rash 9 - Itching ACTONEL (RISEDRONATE SODIUM) 10/30/2005 8 - GI Upset FOSAMAX (ALENDRONATE SODIUM) 10/30/2005 8 - GI Upset Date Reviewed: 04/30/2018 Reviewed by: Nancy Quinn PAVER - Fully Assessed Order(s):LIPID PANEL BASIC [SQLIPB] Order #: [id number] FUTURE Prescriptions as of 06/01/2018 Sig: X TRAMADOL 50 MG TABLET Take 1-2 tablets by mouth carl* ALPRAZOLAM 0.5 MG TABLET Take 1 tablet by mouth at bed* BUPROPION HCL SR 150 MG TABLE* Take 1 tablet by mouth twice * X TRAMADOL 50 MG TABLET Take 1 tablet by mouth every * CHOLECALCIFEROL (VITAMIN D3) * TAKE ONE CAPSULE BY MOUTH ONC* MELOXICAM 15 MG TABLET Take 1 tablet by mouth once d* LEVOTHYROXINE 50 MCG TABLET Take 1 tablet by mouth once d* CITALOPRAM 40 MG TABLET TAKE ONE TABLET BY MOUTH ONCE* PANTOPRAZOLE 40 MG TABLET,DEL* TAKE 1 TABLET BY MOUTH DAILY * TIZANIDINE 4 MG TABLET Take 1 tablet by mouth twice * BUSPIRONE 15 MG TABLET Take 1.5 tablets by mouth twi* HYDROXYZINE HCL 25 MG TABLET Take 1 tablet by mouth three * X NITROFURANTOIN MONOHYDRATE AND * Take 1 capsule by mouth twice* LOSARTAN 25 MG TABLET On Hold because of low blood * Patient not taking: Reported on 06/08/2018 CELECOXIB 200 MG CAPSULE Take 1 capsule by mouth once * Patient not taking: Reported on 06/08/2018 CHOLECALCIFEROL (VITAMIN D3) * Take 1 capsule by mouth once * MELATONIN 5 MG TABLET Take 1 tablet by mouth daily * FEXOFENADINE 180 MG TABLET Take 180 mg by mouth once carol ann* CALCIUM CARBONATE 600 MG (1,5* Take 1 tablet by mouth twice * * FISH OIL 1,000 MG CAPSULE 2 daily * VITAMIN B-12 1,000 MCG TABLET Take one(1) tablet daily. Problem List As Of Date 06/01/2018 Noted Resolved Fibromyalgia [EFD1635] INVALID FOR* Recurrent major depressive disorder, in remissi*INVALID FOR* PERSISTENT INSOMNIA [G47.00] INVALID FOR* ESOPHAGEAL REFLUX [K21.9] INVALID FOR* ALLERGIC RHINITIS NOS [J30.9] INVALID FOR* SENILE OSTEOPOROSIS [M81.0] DYSMETABOLIC SYNDROME X [E88.81] SEC HYPERPARATHYROID, NON-RENAL [E21.1] INVALID FOR* MALAISE AND FATIGUE NEC [R53.81, R53.83] INVALID FOR* HYPERLIPIDEMIA NEC/NOS [E78.5] INVALID FOR* 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 Anxiety [F41.9] Encounter Status:Closed by KYLAH, PRODUSER on 07/23/18 PROGRESS Observed: 05/22/2018 Status: COMPLETED Source: [place] 9:49 AM [facility] REPOSITORY HNO ID: [id number] Author: DENNISE Wheat (Ct) Service: (none) Author Type: Clinical Benzene Washer Type: Progress Notes Filed: 05/22/2018 9:50 AM Note Text: Radiology Service Progress Note PATIENT NAME: Nella Morris DATE OF SERVICE: May 22, 2018 TIME: 9:49 AM PATIENT IDENTITY VERIFICATION COMPLETED USING TWO (2) METHODS: Patient confirmed name verbally and Date of . PATIENT GENDER DATA: Female. status: : No status: NO. PATIENT RELEVANT IMPLANT DATA REVIEWED: Not Applicable RADIOLOGY DEPARTMENT: General X-ray: Exam(s) Completed: Pelvis X-Ray: Pelvis with Hip Right PERIPHERAL IV DATA: Not applicable SIGNED BY: DENNISE Wheat May 22, 2018 9:49 AM XR HIP 3V PELV+ Observed: 05/22/2018 Status: F Source: [place] AP/LAT RT 9:49 AM [facility] REPOSITORY * * *Final Report* * * DATE OF EXAM: May 22 2018 9:49AM [id number] - XR HIP 3V PELV+ AP/LAT RT / PROCEDURE REASON: Pain in right hip * * * * Physician Interpretation * * * * Pelvis and right hip HISTORY: Indication: Pain in right hip TECHNIQUE: Images: XR HIP 3V PELV+ AP/LAT RT Comparison: 07-26. RESULT: Findings: Pelvis: No fractures or dislocations are seen. Interval placement of a left total hip arthroplasty components appear to be in good alignment. No evidence of loosening Right hip: No fractures or dislocations are seen. Mild narrowing of the right hip joint similar to the previous study IMPRESSION: Findings as discussed under Results portion of report.. Porcelain Mixer: YAMILETH Transcribe Date/Time: May 22 2018 11:50A Dictated by : AVA WAGNER DO This examination was interpreted and the report reviewed and electronically signed by: AVA WAGNER DO on May 22 2018 8:46PM EST [id number] XR THORACIC 3V Observed: 04/30/2018 Status: F Source: [place] AP/LAT/[place] 12:12 PM [facility] REPOSITORY * * *Final Report* * * DATE OF EXAM: Apr 30 2018 12:12PM [id number] - XR THORACIC 3V AP/LAT/SWIMMERS / PROCEDURE REASON: Contusion of unspecified back wall of thorax, sequela * * * * Physician Interpretation * * * * HISTORY: 67-YEAR-OLD FEMALE WITH Contusion of unspecified back wall of thorax, sequela . fell down stepps. posterior back pain between shoulder blades and lateral and posterior of left knee. TECHNIQUE: XR THORACIC 3V AP/LAT/SWIMMERS Laterality: LEFT Number of different views (projections): 3 COMPARISON: 12/12/2010 RESULT: Counting reference: The first rib-bearing vertebral bodies considered T1. There are 12 thoracic vertebrae. Dextroscoliosis of thoracic spine measured from T6 through T11 measures 46.5 degrees which is slightly increased compared to previous examination. Bones are osteopenic. There is a severe anterior wedge compression fracture of the T12 vertebral body. Osteoporosis. Degenerative disc disease. No other definite compression fractures are identified.. IMPRESSION: SEVERE ANTERIOR WEDGE COMPRESSION FRACTURE IS PRESENT WHICH WAS NOT PRESENT ON PREVIOUS MRI OF 2010 AT T12 AND IS NOT ADEQUATELY VISUALIZED ON THE PREVIOUS CHEST X-RAYS OF THORACIC SPINE FILM. DEXTROSCOLIOSIS IS SLIGHTLY INCREASED IN CURVATURE COMPARED TO PREVIOUS EXAM. OSTEOPOROSIS. Porcelain Mixer: PSCLita Transcribe Date/Time: Apr 30 2018 12:23P Dictated by : DAV CERVANTES MD This examination was interpreted and the report reviewed and electronically signed by: DAV CERVANTES MD on Apr 30 2018 12:29PM EST [id number] XR KNEE 4V AP/LAT/OBLS Observed: 04/30/2018 Status: F Source: [facility] 12:12 PM [facility] REPOSITORY * * *Final Report* * * DATE OF EXAM: Apr 30 2018 12:12PM [id number] [id number] - XR KNEE 4V AP/LAT/OBLS LT / PROCEDURE REASON: Pain in left knee * * * * Physician Interpretation * * * * HISTORY: 67-YEAR-OLD FEMALE WITH Pain in left knee . fell down stepps. posterior back pain between shoulder blades and lateral and posterior of left knee. TECHNIQUE: XR KNEE 4V AP/LAT/OBLS LT Laterality: LEFT Number of different views (projections): 4 COMPARISON: None RESULT: Small osteophytes but the. Knee joint spaces are maintained. Patellofemoral joint demonstrates small osteophytes, no definite joint space during on the lateral view. No joint effusion. No fracture. IMPRESSION: MILD DEGENERATIVE CHANGES . Porcelain Mixer: PSCB Transcribe Date/Time: Apr 30 2018 12:29P Dictated by : DAV CERVANTES MD This examination was interpreted and the report reviewed and electronically signed by: DAV CERVANTES MD on Apr 30 2018 12:31PM EST [id number] PROGRESS Observed: 04/30/2018 Status: COMPLETED Source: [place] 11:57 AM [facility] REPOSITORY HNO ID: [id number] Author: Tamiko Geiger Service: (none) Author Type: (none) Type: Progress Notes Filed: 04/30/2018 12:12 PM Note Text: Radiology Service Progress Note PATIENT NAME: Nella Morris DATE OF SERVICE: April 30, 2018 TIME: 11:57 AM PATIENT IDENTITY VERIFICATION COMPLETED USING TWO (2) METHODS: Patient confirmed name verbally and Date of . PATIENT GENDER DATA: Female. status: : No status: NO. PATIENT RELEVANT IMPLANT DATA REVIEWED: Not Applicable RADIOLOGY DEPARTMENT: General X-ray: Exam(s) Completed: Spine X-Ray(s): Thoracic Lower Extremity X-Ray(s): Knee, AP / LAT / Tunnel Left: obliques not tunnel PERIPHERAL IV DATA: Not applicable SIGNED BY: Tamiko Geiger April 30, 2018 11:57 AM PROGRESS Observed: 04/30/2018 Status: COMPLETED Source: [place] 10:48 AM [facility] REPOSITORY HNO ID: [id number] Author: Eunice Goncalves Service: (none) Author Type: Physician Type: Progress Notes Filed: 05/11/2018 12:30 AM Note Text: Patient presents with: Leg Pain SUBJECTIVE: Nella Morris is a 67 year old year old lady here today for follow up appointment for review of medical conditions. Slipped down 3 steps while out in [place] with left leg underneath her. Slammed into steps with her back--did not hit head. hit thorcic area. Went to the next day. No knee Xray. C-spine and rib Xrays. doc would not do thoracic spine. Still hurting in back and under shoulder blade. No pain wrapping around to front rib areas Pain in knee with flexion and extension. Hurts to dorsiflex at ankle to walk. Using cane. 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 May take whole pill during day as needed for Anxiety and SOB related to throat/laryngospasm meloxicam (MOBIC) 15 mg tablet Take 1 tablet by mouth once daily. Take with food. levothyroxine (SYNTHROID) 50 mcg tablet Take 1 tablet by mouth once daily. citalopram (CELEXA) 40 mg tablet TAKE ONE TABLET BY MOUTH ONCE DAILY pantoprazole DR (PROTONIX) 40 mg tablet TAKE 1 TABLET BY MOUTH DAILY 30 MINUTES BEFORE BREAKFAST, TAKE ON AN EMPTY STOMACH tiZANidine (ZANAFLEX) 4 mg tablet Take 1 tablet by mouth twice daily as needed. busPIRone (BUSPAR) 15 mg tablet Take 1.5 tablets by mouth twice daily. hydrOXYzine HCl (ATARAX) 25 mg tablet Take 1 tablet by mouth three times daily as needed for Itching/Rash. FOR ITCHING Melatonin 5 mg tab Take 1 tablet by mouth daily at bedtime. fexofenadine (ALVINA) 180 mg tablet Take 180 mg by mouth once daily. calcium carbonate 600 mg-cholecalciferol 200 units (CALCIUM 600 + D,3,) 600 mg(1,500mg) -200 unit Tab Take 1 tablet by mouth twice daily. omega-3 fatty acids/vitamin e(FISH OIL 1,000 MG CAP) 2 daily cyanocobalamin(VITAMIN B-12 1,000 MCG TAB) Take one(1) tablet daily. ranitidine (ZANTAC) 150 mg tablet Take 150 mg by mouth once daily. losartan (COZAAR) 25 mg tablet On Hold because of low blood pressures and fatigue celecoxib (CELEBREX) 200 mg capsule Take 1 capsule by mouth once daily. traMADol (ULTRAM) 50 mg tablet Take 1 tablet by mouth every 6 hours as needed. cholecalciferol, Vitamin D3, (VITAMIN D3) 50,000 unit cap capsule Take 1 capsule by mouth once each week. No current facility-administered medications for this visit. OBJECTIVE: BP 138/88 Pulse 92 Resp 20 Wt 69.9 kg (154 lb) BMI 28.17 kg/m? Patient is alert, oriented times 3, no apparent distress, affect is bright, reactive. Last 5 Encounter BP Readings: Date: BP: 04/30/2018 138/88 12/11/2017 130/62 10/02/2017 132/80 09/23/2017 142/85[#6 (from Extended Vitals)[ 08/14/2017 154/80 Last 5 Encounter Wt Readings: Date: Wt: 04/30/2018 69.9 kg (154 lb) 12/11/2017 69.4 kg (153 lb) 10/02/2017 68.5 kg (151 lb) 08/14/2017 70.3 kg (155 lb) 07/31/2017 69.9 kg (154 lb) Heart: Regular rate, rhythm, no murmurs, gallops, rubs. Lungs: Clear to auscultation, bilaterally, breathing non labored. Ext: No cyanosis, clubbing, or edema. left knee--mild swelling knee bursa; pain with flexion and extension; resolving bruising lateral calf and noted purple bruise medially--not tender or hot there. pain with resisted plantar flexion. Thoracic spine--tender over left side of spine; scoliosis noted. Some pain with inspiration noted ASSESSMENT AND PLAN: Encounter Diagnosis ICD-10-CM 1. Acute pain of left knee M25.562 XR KNEE INJURY 4V AP/LAT/OBLS LT traMADol (ULTRAM) 50 mg tablet from recent fall 04/18/18 with knee bent under her 2. Contusion of left calf, sequela S80.12XS traMADol (ULTRAM) 50 mg tablet 3. Contusion of back wall of thorax, unspecified laterality, sequela S20.229S XR THORACIC GENERAL 3V AP/LAT/SWIMMERS traMADol (ULTRAM) 50 mg tablet 4. Anxiety F41.9 ALPRAZolam (XANAX) 0.5 mg tablet 5. Recurrent major depressive disorder, in remission (HCC) F33.40 buPROPion SR (ZYBAN SR; WELLBUTRIN SR) 150 mg 12 hr tablet 6. Grief reaction F43.21 ALPRAZolam (XANAX) 0.5 mg tablet Xrays as above. Suspect compression fracture on spine. Further evaluation and treatment as indicated. If knee Xrays not helpful, need to consider PFTs, MRI o CT scan. Further evaluation and treatment as indicated. Last filled Xanax 12/11--due for refill. Almost out. Will see if need so try BID wellbutrin again but PM dose early, not HS PDMP website checked and validated. All prescriptions have been APPROPRIATELY filled. No suspicious activity was identified. 05/11/2018 by Eunice Goncalves MD Above issues addressed with patient. Patient involved in shared decision making for management of her medical issues. History and medications reviewed. Epic updated as needed Refills taken care of and meds adjusted as indicated after reviewed history, exam and labs. Health Maintenance reviewed. Updated record and/or ordered tests as recorded. Encouraged on efforts at healthy diet and regular exercise and adequate sleep. The majority of the visit was spent counseling and/or coordinating care for the patient. Jicw-vm-cjjs time was at least 25 minutes. Eunice Goncalves MD CNOV Observed: 04/30/2018 Status: COMPLETED Source: [place] 10:20 AM [facility] REPOSITORY Office Visit (INTMWS) NELLA MORRIS ([id number]) 1950 F Date Time Provider Department 04/30/18 10:20 AM EUNICE GONCALVES INTVIPUL During your visit today, we recorded the following information about you: Pulse Respiration Blood pressure Weight 92/minute 20/minute 138/88 69.9 kg Eunice Goncalves MD 05/11/2018 12:30 AM Signed Patient presents with: Leg Pain SUBJECTIVE: Nella Morris is a 67 year old year old lady here today for follow up appointment for review of medical conditions. Slipped down 3 steps while out in [place] with left leg underneath her. Slammed into steps with her back--did not hit head. hit thorcic area. Went to the next day. No knee Xray. C-spine and rib Xrays. doc would not do thoracic spine. Still hurting in back and under shoulder blade. No pain wrapping around to front rib areas Pain in knee with flexion and extension. Hurts to dorsiflex at ankle to walk. Using cane. 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 May take whole pill during day as needed for Anxiety and SOB related to throat/laryngospasm meloxicam (MOBIC) 15 mg tablet Take 1 tablet by mouth once daily. Take with food. levothyroxine (SYNTHROID) 50 mcg tablet Take 1 tablet by mouth once daily. citalopram (CELEXA) 40 mg tablet TAKE ONE TABLET BY MOUTH ONCE DAILY pantoprazole DR (PROTONIX) 40 mg tablet TAKE 1 TABLET BY MOUTH DAILY 30 MINUTES BEFORE BREAKFAST, TAKE ON AN EMPTY STOMACH tiZANidine (ZANAFLEX) 4 mg tablet Take 1 tablet by mouth twice daily as needed. busPIRone (BUSPAR) 15 mg tablet Take 1.5 tablets by mouth twice daily. hydrOXYzine HCl (ATARAX) 25 mg tablet Take 1 tablet by mouth three times daily as needed for Itching/Rash. FOR ITCHING Melatonin 5 mg tab Take 1 tablet by mouth daily at bedtime. fexofenadine (ALVINA) 180 mg tablet Take 180 mg by mouth once daily. calcium carbonate 600 mg-cholecalciferol 200 units (CALCIUM 600 + D,3,) 600 mg(1,500mg) -200 unit Tab Take 1 tablet by mouth twice daily. omega-3 fatty acids/vitamin e(FISH OIL 1,000 MG CAP) 2 daily cyanocobalamin(VITAMIN B-12 1,000 MCG TAB) Take one(1) tablet daily. ranitidine (ZANTAC) 150 mg tablet Take 150 mg by mouth once daily. losartan (COZAAR) 25 mg tablet On Hold because of low blood pressures and fatigue celecoxib (CELEBREX) 200 mg capsule Take 1 capsule by mouth once daily. traMADol (ULTRAM) 50 mg tablet Take 1 tablet by mouth every 6 hours as needed. cholecalciferol, Vitamin D3, (VITAMIN D3) 50,000 unit cap capsule Take 1 capsule by mouth once each week. No current facility-administered medications for this visit. OBJECTIVE: BP 138/88 Pulse 92 Resp 20 Wt 69.9 kg (154 lb) BMI 28.17 kg/m? Patient is alert, oriented times 3, no apparent distress, affect is bright, reactive. Last 5 Encounter BP Readings: Date: BP: 04/30/2018 138/88 12/11/2017 130/62 10/02/2017 132/80 09/23/2017 142/85[#6 (from Extended Vitals)[ 08/14/2017 154/80 Last 5 Encounter Wt Readings: Date: Wt: 04/30/2018 69.9 kg (154 lb) 12/11/2017 69.4 kg (153 lb) 10/02/2017 68.5 kg (151 lb) 08/14/2017 70.3 kg (155 lb) 07/31/2017 69.9 kg (154 lb) Heart: Regular rate, rhythm, no murmurs, gallops, rubs. Lungs: Clear to auscultation, bilaterally, breathing non labored. Ext: No cyanosis, clubbing, or edema. left knee--mild swelling knee bursa; pain with flexion and extension; resolving bruising lateral calf and noted purple bruise medially--not tender or hot there. pain with resisted plantar flexion. Thoracic spine--tender over left side of spine; scoliosis noted. Some pain with inspiration noted ASSESSMENT AND PLAN: Encounter Diagnosis ICD-10-CM 1. Acute pain of left knee M25.562 XR KNEE INJURY 4V AP/LAT/OBLS LT traMADol (ULTRAM) 50 mg tablet from recent fall 04/18/18 with knee bent under her 2. Contusion of left calf, sequela S80.12XS traMADol (ULTRAM) 50 mg tablet 3. Contusion of back wall of thorax, unspecified laterality, sequela S20.229S XR THORACIC GENERAL 3V AP/LAT/SWIMMERS traMADol (ULTRAM) 50 mg tablet 4. Anxiety F41.9 ALPRAZolam (XANAX) 0.5 mg tablet 5. Recurrent major depressive disorder, in remission (HCC) F33.40 buPROPion SR (ZYBAN SR; WELLBUTRIN SR) 150 mg 12 hr tablet 6. Grief reaction F43.21 ALPRAZolam (XANAX) 0.5 mg tablet Xrays as above. Suspect compression fracture on spine. Further evaluation and treatment as indicated. If knee Xrays not helpful, need to consider PFTs, MRI o CT scan. Further evaluation and treatment as indicated. Last filled Xanax 12/11--due for refill. Almost out. Will see if need so try BID wellbutrin again but PM dose early, not HS PDMP website checked and validated. All prescriptions have been APPROPRIATELY filled. No suspicious activity was identified. 05/11/2018 by Eunice Goncalves MD Above issues addressed with patient. Patient involved in shared decision making for management of her medical issues. History and medications reviewed. Epic updated as needed Refills taken care of and meds adjusted as indicated after reviewed history, exam and labs. Health Maintenance reviewed. Updated record and/or ordered tests as recorded. Encouraged on efforts at healthy diet and regular exercise and adequate sleep. The majority of the visit was spent counseling and/or coordinating care for the patient. Yujw-ka-pigp time was at least 25 minutes. Eunice Goncalves MD Referring Provider: SELF [[id number]] Allergies As of Date: 04/30/2018 Noted Allergy Reaction LATEX 04/06/2007 2 - Rash 9 - Itching ACTONEL (RISEDRONATE SODIUM) 10/30/2005 8 - GI Upset FOSAMAX (ALENDRONATE SODIUM) 10/30/2005 8 - GI Upset Date Reviewed: 04/30/2018 Reviewed by: Nancy Quinn LPN - Fully Assessed Reason for Visit: Leg Pain [1219] Primary Visit Diagnosis:Acute pain of left knee [M25.562] Comment:from recent fall 04/18/18 with knee bent under her Other Visit Diagnoses:Contusion of left calf, sequela [S80.12XS] Contusion of back wall of thorax, unspecified laterality, sequela [S20.229S] Anxiety [F41.9] Recurrent major depressive disorder, in remission (HCC) [F33.40] Grief reaction [F43.21] Secondary hyperparathyroidism, 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 May take whole pill during day as needed for Anxiety and SOB related to throat/laryngospasmDisp: 180 tabletRfl: 0 buPROPion SR (ZYBAN SR; WELLBUTRIN SR) 150 mg 12 hr tabletTake 1 tablet by mouth twice daily. As directedDisp: 180 tabletRfl: 3 XR KNEE INJURY 4V AP/LAT/OBLS LT [[id number]] Order #: [id number] FUTURE XR THORACIC GENERAL 3V AP/LAT/SWIMMERS [[id number]] Order #: [id number] FUTURE traMADol (ULTRAM) 50 mg tabletTake 1 tablet by mouth every 6 hours as needed for up to 60 days.Disp: 30 tabletRfl: 1 Prescriptions as of 04/30/2018 Sig: ALPRAZOLAM 0.5 MG TABLET Take 1 tablet by mouth at bed* BUPROPION HCL SR 150 MG TABLE* Take 1 tablet by mouth twice * CHOLECALCIFEROL (VITAMIN D3) * TAKE ONE CAPSULE BY MOUTH ONC* MELOXICAM 15 MG TABLET Take 1 tablet by mouth once d* LEVOTHYROXINE 50 MCG TABLET Take 1 tablet by mouth once d* CITALOPRAM 40 MG TABLET TAKE ONE TABLET BY MOUTH ONCE* PANTOPRAZOLE 40 MG TABLET,DEL* TAKE 1 TABLET BY MOUTH DAILY * TIZANIDINE 4 MG TABLET Take 1 tablet by mouth twice * BUSPIRONE 15 MG TABLET Take 1.5 tablets by mouth twi* HYDROXYZINE HCL 25 MG TABLET Take 1 tablet by mouth three * MELATONIN 5 MG TABLET Take 1 tablet by mouth daily * FEXOFENADINE 180 MG TABLET Take 180 mg by mouth once carol ann* CALCIUM CARBONATE 600 MG (1,5* Take 1 tablet by mouth twice * * FISH OIL 1,000 MG CAPSULE 2 daily * VITAMIN B-12 1,000 MCG TABLET Take one(1) tablet daily. TRAMADOL 50 MG TABLET Take 1 tablet by mouth every * LOSARTAN 25 MG TABLET On Hold because of low blood * CELECOXIB 200 MG CAPSULE Take 1 capsule by mouth once * CHOLECALCIFEROL (VITAMIN D3) * Take 1 capsule by mouth once * Medication notes this encounter RANITIDINE 150 MG TABLET >> Nancy Quinn LPN 04/30/2018 10:28 AM >> NANCY QUINN LPN ThuApr 30, 2018 10:28 AM Not currently taking LOSARTAN 25 MG TABLET >> Nancy Quinn LPN 04/30/2018 10:28 AM >> NANCY QUINN LPN ThuApr 30, 2018 10:28 AM Not taking TRAMADOL 50 MG TABLET >> Nancy Quinn LPN 04/30/2018 10:29 AM >> NANCY QUINN LPN ThuApr 30, 2018 10:29 AM Not taking Problem List As Of Date 04/30/2018 Noted Resolved Fibromyalgia [QHQ9143] INVALID FOR* Recurrent major depressive disorder, in remissi*INVALID FOR* PERSISTENT INSOMNIA [G47.00] INVALID FOR* ESOPHAGEAL REFLUX [K21.9] INVALID FOR* ALLERGIC RHINITIS NOS [J30.9] INVALID FOR* SENILE OSTEOPOROSIS [M81.0] DYSMETABOLIC SYNDROME X [E88.81] SEC HYPERPARATHYROID, NON-RENAL [E21.1] INVALID FOR* MALAISE AND FATIGUE NEC [R53.81, R53.83] INVALID FOR* HYPERLIPIDEMIA NEC/NOS [E78.5] INVALID FOR* 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 Anxiety [F41.9] Prescriptions ordered this encounter Disp Refills Start End ALPRAZOLAM 0.5 MG TABLET 180 * 0 04/30/2018 07/29/2018 Class: Print RX Route: ORAL Sig: Take 1 tablet by mouth at bedtime as needed for Anxiety for up to 90 days. May take whole pill during day as needed for Anxiety and SOB related to throat/laryngospasm BUPROPION HCL SR 150 MG TABLET,12 HR* 180 * 3 04/30/2018 Route: ORAL Sig: Take 1 tablet by mouth twice daily. As directed TRAMADOL 50 MG TABLET 30 t* 1 04/30/2018 06/29/2018 Class: Print RX Cmt: 30 pills for at least 30 days; with 1 RF this prescription can be fore 60 days Route: ORAL Sig: Take 1 tablet by mouth every 6 hours as needed for up to 60 days. Medications Discontinued During This Encounter ALPRAZolam (XANAX) 0.5 mg tablet 180 * 0 12/11/2017 04/30/2018 Class: Print RX Cmt: Can last 3 to 5 months depending on exacerbation episodes Route: ORAL Sig: Take 1 tablet by mouth at bedtime as needed for Anxiety for up to 90 days. May take whole pill during day as needed for Anxiety and SOB related to throat/laryngospasm Disc: Reason for discontinue is not on file. buPROPion SR (ZYBAN SR; WELLBUTRIN S* 90 t* 3 01/29/2018 04/30/2018 Sig: TAKE ONE TABLET BY MOUTH ONCE DAILY Disc: Reason for discontinue is not on file. ranitidine (ZANTAC) 150 mg tablet 04/30/2018 Class: Historical Med Route: ORAL Sig: Take 150 mg by mouth once daily. Disc: Reason for discontinue is not on file. traMADol (ULTRAM) 50 mg tablet 30 t* 1 07/23/2016 04/30/2018 Class: Print RX Route: ORAL Sig: Take 1 tablet by mouth every 6 hours as needed. Disc: Reason for discontinue is not on file. Disposition: Return if symptoms worsen or fail to improve, for Keep Sept appt. Follow-up and Disposition History Recorded Encounter Status:Closed by EUNICE GONCALVES MD on 05/11/18 PROGRESS Observed: 12/11/2017 Status: COMPLETED Source: [place] 12:38 PM [facility] REPOSITORY HNO ID: [id number] Author: Eunice Goncalves Service: (none) Author Type: Physician Type: Progress Notes Filed: 12/26/2017 6:00 PM Note Text: Patient presents with: Recheck SUBJECTIVE: Nella Morris is a 67 year old year old lady here today for follow up appointment for review of medical conditions. 2 hours of sleep at a time now. Handling okay. Takes time to fall back to sleep. Cut out caffeine except 1 cup in AM. Stressors noted. Son staying with them. Discussed challenges. Overall hanging in there-- supportive; medications helping. 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 ranitidine (ZANTAC) 150 mg tablet Take 150 mg by mouth once daily. busPIRone (BUSPAR) 15 mg tablet Take 1.5 tablets by mouth twice daily. ALPRAZolam (XANAX) 0.5 mg tablet Take 1 tablet by mouth at bedtime as needed. May take whole pill during day as needed for Anxiety and SOB related to throat/laryngospasm hydrOXYzine HCl (ATARAX) 25 mg tablet Take 1 tablet by mouth three times daily as needed for Itching/Rash. FOR ITCHING meloxicam (MOBIC) 15 mg tablet Take 1 tablet by mouth once daily. Take with food. levothyroxine (SYNTHROID) 50 mcg tablet Take 1 tablet by mouth once daily. buPROPion SR (ZYBAN SR; WELLBUTRIN SR) 150 mg 12 hr tablet Take 1 tablet by mouth once daily. cholecalciferol, Vitamin D3, (VITAMIN D3) 50,000 unit cap capsule Take 1 capsule by mouth once each week. losartan (COZAAR) 25 mg tablet On Hold because of low blood pressures and fatigue celecoxib (CELEBREX) 200 mg capsule Take 1 capsule by mouth once daily. traMADol (ULTRAM) 50 mg tablet Take 1 tablet by mouth every 6 hours as needed. cholecalciferol, Vitamin D3, (VITAMIN D3) 50,000 unit cap capsule Take 1 capsule by mouth once each week. Melatonin 5 mg tab Take 1 tablet by mouth daily at bedtime. fexofenadine (ALVINA) 180 mg tablet Take 180 mg by mouth once daily. calcium carbonate 600 mg-cholecalciferol 200 units (CALCIUM 600 + D,3,) 600 mg(1,500mg) -200 unit Tab Take 1 tablet by mouth twice daily. omega-3 fatty acids/vitamin e(FISH OIL 1,000 MG CAP) 2 daily cyanocobalamin(VITAMIN B-12 1,000 MCG TAB) Take one(1) tablet daily. No current facility-administered medications for this visit. OBJECTIVE: BP 130/62 Pulse 64 Resp 16 Wt 69.4 kg (153 lb) BMI 27.98 kg/m2 Patient is alert, oriented times 3, no apparent distress, affect is bright, reactive. Heart: Regular rate, rhythm, no murmurs, gallops, rubs. Lungs: Clear to auscultation, bilaterally, breathing non labored. Ext: No cyanosis, clubbing, or edema. ASSESSMENT AND PLAN: Encounter Diagnosis ICD-10-CM 1. Anxiety F41.9 ALPRAZolam (XANAX) 0.5 mg tablet 2. Acquired hypothyroidism E03.9 levothyroxine (SYNTHROID) 50 mcg tablet 3. Grief reaction F43.20 ALPRAZolam (XANAX) 0.5 mg tablet 4. Recurrent major depressive disorder, in partial remission (HCC) F33.41 Above issues addressed with patient. Patient involved in shared decision making for management of her medical issues. History and medications reviewed. Epic updated as needed Refills taken care of and meds adjusted as indicated after reviewed history, exam and labs. Health Maintenance reviewed. Updated record and/or ordered tests as recorded. Clinically euthyroid. TSH fine. Continue to adjust dose of replacement as indicated based on symptoms and labs. Still mourning of one son. Noted stressors with son who is living with them and struggling with health issues. Emotional support given. Encouraged on efforts at healthy diet and regular exercise and adequate sleep. Stable with control of anxiety and insomnia. No signs of diversion or abuse of medication(s); no adverse effects. Continue present management. OARRS website checked and validated. All prescriptions have been APPROPRIATELY filled. No suspicious activity was identified.- 12/26/2017 by Eunice Goncalves MD The majority of the visit was spent counseling and/or coordinating care for the patient. Jyeg-ww-[id number] time was at least 25 minutes. Eunice Goncalves MD CNOV Observed: 12/11/2017 Status: COMPLETED Source: [place] 11:40 AM [facility] REPOSITORY Office Visit (INTMWS) NELLA MORRIS ([id number]) 1950 F Date Time Provider Department 12/11/17 11:40 AM EUNICE GONCALVES INTMichaelWS During your visit today, we recorded the following information about you: Pulse Respiration Blood pressure Weight 64/minute 16/minute 130/62 69.4 kg Eunice Goncalves MD 12/26/2017 6:00 PM Signed Patient presents with: Recheck SUBJECTIVE: Nella Morris is a 67 year old year old lady here today for follow up appointment for review of medical conditions. 2 hours of sleep at a time now. Handling okay. Takes time to fall back to sleep. Cut out caffeine except 1 cup in AM. Stressors noted. Son staying with them. Discussed challenges. Overall hanging in there-- supportive; medications helping. 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 ranitidine (ZANTAC) 150 mg tablet Take 150 mg by mouth once daily. busPIRone (BUSPAR) 15 mg tablet Take 1.5 tablets by mouth twice daily. ALPRAZolam (XANAX) 0.5 mg tablet Take 1 tablet by mouth at bedtime as needed. May take whole pill during day as needed for Anxiety and SOB related to throat/laryngospasm hydrOXYzine HCl (ATARAX) 25 mg tablet Take 1 tablet by mouth three times daily as needed for Itching/Rash. FOR ITCHING meloxicam (MOBIC) 15 mg tablet Take 1 tablet by mouth once daily. Take with food. levothyroxine (SYNTHROID) 50 mcg tablet Take 1 tablet by mouth once daily. buPROPion SR (ZYBAN SR; WELLBUTRIN SR) 150 mg 12 hr tablet Take 1 tablet by mouth once daily. cholecalciferol, Vitamin D3, (VITAMIN D3) 50,000 unit cap capsule Take 1 capsule by mouth once each week. losartan (COZAAR) 25 mg tablet On Hold because of low blood pressures and fatigue celecoxib (CELEBREX) 200 mg capsule Take 1 capsule by mouth once daily. traMADol (ULTRAM) 50 mg tablet Take 1 tablet by mouth every 6 hours as needed. cholecalciferol, Vitamin D3, (VITAMIN D3) 50,000 unit cap capsule Take 1 capsule by mouth once each week. Melatonin 5 mg tab Take 1 tablet by mouth daily at bedtime. fexofenadine (ALVINA) 180 mg tablet Take 180 mg by mouth once daily. calcium carbonate 600 mg-cholecalciferol 200 units (CALCIUM 600 + D,3,) 600 mg(1,500mg) -200 unit Tab Take 1 tablet by mouth twice daily. omega-3 fatty acids/vitamin e(FISH OIL 1,000 MG CAP) 2 daily cyanocobalamin(VITAMIN B-12 1,000 MCG TAB) Take one(1) tablet daily. No current facility-administered medications for this visit. OBJECTIVE: BP 130/62 Pulse 64 Resp 16 Wt 69.4 kg (153 lb) BMI 27.98 kg/m2 Patient is alert, oriented times 3, no apparent distress, affect is bright, reactive. Heart: Regular rate, rhythm, no murmurs, gallops, rubs. Lungs: Clear to auscultation, bilaterally, breathing non labored. Ext: No cyanosis, clubbing, or edema. ASSESSMENT AND PLAN: Encounter Diagnosis ICD-10-CM 1. Anxiety F41.9 ALPRAZolam (XANAX) 0.5 mg tablet 2. Acquired hypothyroidism E03.9 levothyroxine (SYNTHROID) 50 mcg tablet 3. Grief reaction F43.20 ALPRAZolam (XANAX) 0.5 mg tablet 4. Recurrent major depressive disorder, in partial remission (HCC) F33.41 Above issues addressed with patient. Patient involved in shared decision making for management of her medical issues. History and medications reviewed. Epic updated as needed Refills taken care of and meds adjusted as indicated after reviewed history, exam and labs. Health Maintenance reviewed. Updated record and/or ordered tests as recorded. Clinically euthyroid. TSH fine. Continue to adjust dose of replacement as indicated based on symptoms and labs. Still mourning of one son. Noted stressors with son who is living with them and struggling with health issues. Emotional support given. Encouraged on efforts at healthy diet and regular exercise and adequate sleep. Stable with control of anxiety and insomnia. No signs of diversion or abuse of medication(s); no adverse effects. Continue present management. OARRS website checked and validated. All prescriptions have been APPROPRIATELY filled. No suspicious activity was identified.- 12/26/2017 by Eunice Goncalves MD The majority of the visit was spent counseling and/or coordinating care for the patient. Dtbs-[id number] time was at least 25 minutes. MD Eunice Cifuentes MD 12/11/2017 12:54 PM Signed [place]==does pill packages Referring Provider: EUNICE GONCALVES [[id number]] Allergies As of Date: 12/11/2017 Noted Allergy Reaction LATEX 04/06/2007 2 - Rash 9 - Itching ACTONEL (RISEDRONATE SODIUM) 10/30/2005 8 - GI Upset FOSAMAX (ALENDRONATE SODIUM) 10/30/2005 8 - GI Upset Date Reviewed: 12/11/2017 Reviewed by: Mary Rodriguez Ship Rigger Apprentice - Fully Assessed Reason for Visit: Recheck [92] Primary Visit Diagnosis:Anxiety [F41.9] Other Visit Diagnoses:Acquired hypothyroidism [E03.9] Grief reaction [F43.20] Recurrent major depressive disorder, in partial remission (HCC) [F33.41] Order(s):ALPRAZolam (XANAX) 0.5 mg tabletTake 1 tablet by mouth at bedtime as needed for Anxiety for up to 90 days. May take whole pill during day as needed for Anxiety and SOB related to throat/laryngospasmDisp: 180 tabletRfl: 0 meloxicam (MOBIC) 15 mg tabletTake 1 tablet by mouth once daily. Take with food.Disp: 90 tabletRfl: 3 levothyroxine (SYNTHROID) 50 mcg tabletTake 1 tablet by mouth once daily.Disp: 90 tabletRfl: 3 Prescriptions as of 12/11/2017 Sig: ALPRAZOLAM 0.5 MG TABLET Take 1 tablet by mouth at bed* MELOXICAM 15 MG TABLET Take 1 tablet by mouth once d* LEVOTHYROXINE 50 MCG TABLET Take 1 tablet by mouth once d* CITALOPRAM 40 MG TABLET TAKE ONE TABLET BY MOUTH ONCE* PANTOPRAZOLE 40 MG TABLET,DEL* TAKE 1 TABLET BY MOUTH DAILY * TIZANIDINE 4 MG TABLET Take 1 tablet by mouth twice * RANITIDINE 150 MG TABLET Take 150 mg by mouth once carol ann* BUSPIRONE 15 MG TABLET Take 1.5 tablets by mouth twi* HYDROXYZINE HCL 25 MG TABLET Take 1 tablet by mouth three * BUPROPION HCL SR 150 MG TABLE* Take 1 tablet by mouth once d* CHOLECALCIFEROL (VITAMIN D3) * Take 1 capsule by mouth once * LOSARTAN 25 MG TABLET On Hold because of low blood * CELECOXIB 200 MG CAPSULE Take 1 capsule by mouth once * TRAMADOL 50 MG TABLET Take 1 tablet by mouth every * CHOLECALCIFEROL (VITAMIN D3) * Take 1 capsule by mouth once * MELATONIN 5 MG TABLET Take 1 tablet by mouth daily * FEXOFENADINE 180 MG TABLET Take 180 mg by mouth once carol ann* CALCIUM CARBONATE 600 MG (1,5* Take 1 tablet by mouth twice * * FISH OIL 1,000 MG CAPSULE 2 daily * VITAMIN B-12 1,000 MCG TABLET Take one(1) tablet daily. Problem List As Of Date 12/11/2017 Noted Resolved Fibromyalgia [SOU9152] INVALID FOR* Recurrent major depressive disorder, in remissi*INVALID FOR* PERSISTENT INSOMNIA [G47.00] INVALID FOR* ESOPHAGEAL REFLUX [K21.9] INVALID FOR* ALLERGIC RHINITIS NOS [J30.9] INVALID FOR* SENILE OSTEOPOROSIS [M81.0] DYSMETABOLIC SYNDROME X [E88.81] SEC HYPERPARATHYROID, NON-RENAL [E21.1] INVALID FOR* MALAISE AND FATIGUE NEC [R53.81, R53.83] INVALID FOR* HYPERLIPIDEMIA NEC/NOS [E78.5] INVALID FOR* 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 Anxiety [F41.9] Other instructions from your clinician: [facility]==does pill packages Prescriptions ordered this encounter Disp Refills Start End ALPRAZOLAM 0.5 MG TABLET 180 * 0 12/11/2017 03/11/2018 Class: Print RX Cmt: Can last 3 to 5 months depending on exacerbation episodes Route: ORAL Sig: Take 1 tablet by mouth at bedtime as needed for Anxiety for up to 90 days. May take whole pill during day as needed for Anxiety and SOB related to throat/laryngospasm MELOXICAM 15 MG TABLET 90 t* 3 12/11/2017 Route: ORAL Sig: Take 1 tablet by mouth once daily. Take with food. LEVOTHYROXINE 50 MCG TABLET 90 t* 3 12/11/2017 Route: ORAL Sig: Take 1 tablet by mouth once daily. Medications Discontinued During This Encounter ALPRAZolam (XANAX) 0.5 mg tablet 180 * 0 07/31/2017 12/11/2017 Class: Print RX Route: ORAL Sig: Take 1 tablet by mouth at bedtime as needed. May take whole pill during day as needed for Anxiety and SOB related to throat/laryngospasm Disc: Reason for discontinue is not on file. meloxicam (MOBIC) 15 mg tablet 90 t* 3 03/04/2017 12/11/2017 Route: ORAL Sig: Take 1 tablet by mouth once daily. Take with food. Disc: Reason for discontinue is not on file. levothyroxine (SYNTHROID) 50 mcg tab* 90 t* 3 01/28/2017 12/11/2017 Route: ORAL Sig: Take 1 tablet by mouth once daily. Disc: Reason for discontinue is not on file. Disposition: Return in about 6 months (around 06/13/2018) for 6 months follow up. Follow-up and Disposition History Recorded Encounter Status:Closed by EUNICE GONCALVES MD on 12/26/17 ALLERGIES ALLERGIES DATE TYPE / CODE NAME / CODE REACTION SEVERITY SOURCE 12/02/2016 Drug latex/[id number](R COUGHING AND Unknown Melanie Allergy/416 XNORM) SORE THROAT Community 036333([facility] ED CT) Repository 04/06/2007 DRUG LATEX RASH [facility] IN[address] 103536(SNOM Repository ED CT) 10/30/2005 DRUG RISEDRONATE SODIUM GI UPSET [facility] INGREDI/[address] 649268(SNOM Repository ED CT) 10/30/2005 DRUG ALENDRONATE SODIUM GI UPSET [facility] IN[address]ED[address] 553279(SNOM Repository ED CT) ENCOUNTERS ENCOUNTERS ADMIT/DISCHARGE ACCOUNT ADMITTING ENCOUNTER LOCATION SOURCE NUMBER CLASS 10/14/2018/10/15/19 [id number] Ambulatory [address] Repository 10/14/2018/10/14/19 [id number] Ambulatory [address] Repository 10/07/2018/10/08/20 [id number] Ambulatory [address] Repository 09/29/2018 [id number] Ambulatory BMSBuilding:Sanket Navarro [facility] Repository 09/28/2018/09/29/20 [id number] Barb Lozano Ambulatory [address] ing:PCURoom: Repository [id number]: 1 09/28/2018 [id number] Barb Lozano Ambulatory BMSBuilding:Lita Navarro [facility] Repository 09/28/2018 [id number] Barb Lozano Ambulatory BMSBuilding:Lita Navarro [facility] Repository 09/14/2018 [id number] [facility] ing:OPBD Repository 06/24/2018 [id number] Ambulatory BMSBuilding:Lita Navarro [facility] Repository 06/21/2018/06/21/20 [id number] Ambulatory [address] Repository 06/18/2018 [id number] Ambulatory BMSBuilding:Lita Navarro [facility] Repository 06/18/2018/07/02/20 [id number] Ambulatory [address] Repository 06/08/2018/06/09/20 [id number] Ambulatory [address] Repository 06/04/2018/06/04/20 [id number] Ambulatory [address] Repository 06/02/2018 [id number] Ambulatory [place] [facility] ing:CT Repository 05/22/2018/05/22/20 [id number] Ambulatory [address] Repository 04/30/2018/04/30/20 [id number] Ambulatory [address] Repository 04/30/2018/05/12/20 [id number] Ambulatory [address] Repository 12/11/2017/12/29/19 [id number] Ambulatory [address] Repository PAYERS PAYERS ENCOUNTER GUARANTOR PAYER SUBSCRIBER SOURCE 09/29/2018 NELLA S Primary NELLA S [place] [id number] Insurance:MEDICARE SADLERDOB: Community ENE PART A [facility] [id number] Number: Repository [address]Czo: 330 [id number] [phone] () Date:2018-09-28 09/29/2018 Secondary NELLA S [place] Insurance:MEDICO-BENIGNO SADLERDOB: [facility] Policy Number: [id number] Hospital [id number] Repository Date:6020-89-60[address] [address]EP: 09/29/2018 Tertiary NOT GIVENUNK Melanie Insurance:SELF PAY [facility] Number: Effective Repository Date:2018-09-29 09/28/2018 NELLA S Primary NELLA S [place] [id number] Insurance:MEDICARE SADLERDOB: Community ENE PART A [facility] [id number] Number: Repository [address]Oaa: 330 [id number] [phone] () Date:2018-09-28 09/28/2018 Secondary NELLA S Melanie Insurance:MEDICO-BENIGNO SADLERDOB: [facility] Policy Number: [id number] Hospital [id number] Repository Date:4060-07-16[address] [address]QAEDB, [place] [address]MO: 09/28/2018 Tertiary NOT GIVENUNK Melanie Insurance:SELF PAY [facility] Hospital Number: Effective Repository Date:2018-09-28 09/28/2018 NELLA S Primary NELLA S [place] [id number] Insurance:MEDICARE SADLERDOB: Community ENE PART A [id number] [place] [facility] Repository [address]Dcd: 330 [id number] [phone] () Date:2018-09-28 09/28/2018 Secondary NELLA S [place] Insurance:MEDICO-BENIGNO SADLERDOB: Community Policy Number: [id number] Repository Date:2473-93-36[address] [address]QJ, [place] [address]QN: 09/28/2018 Tertiary NOT GIVENUNK Melanie Insurance:SELF PAY [facility] Number: Effective Repository Date:2018-09-28 09/28/2018 NELLA S Primary NELLA S [place] [id number] Insurance:MEDICARE SADLERDOB: Community ENE PART A [id number] [place] Number[facility] Repository [address]Czc: 330 [id number] [phone] () Date:2018-09-28 09/28/2018 Secondary NELLA S [place] Insurance:MEDICO-BENIGNO SADLERDOB: [facility] Policy Number: [id number] Repository Date:9196-31-14[address] [address]J[place]JK [place] [address]AP: 09/28/2018 Tertiary NOT GIVENUNK [place] Insurance:SELF PAY [facility] Hospital Number: Effective Repository Date:2018-09-28 09/14/2018 NELLA S Primary NELLA S [place] [id number] Insurance:MEDICARE SADLERDOB: [facility] ENE PART A [facility] [id number] [place] Number: Repository [address]Yvs: 330 [id number] [phone] () Date:2018-07-15 09/14/2018 Secondary NELLA S Mel[place] Insurance:MEDICO-BENIGNO SADLERDOB: [facility] Policy Number: [id number] Repository Date:2709-43-15[address] [address]TO: 09/14/2018 Tertiary NOT GIVENUNK Melanie Insurance:SELF PAY [facility] Number: Effective Repository Date:2018-07-15 06/24/2018 Nella S Primary Nella S Mel[place] [id number] Insurance:MEDICO-BENIGNO SadlerDOB: Community ENE Policy Number: [id number] [id number] Repository [address]Bfk: 330) Date:0493-42-04[phone] () [address]ENNQBRADHA [address]SC: 06/24/2018 Secondary Nella S [place] Insurance:MEDICARE SadlerDOB: Community PART A [facility] [id number] Hospital Number: Repository [id number] Date:2017-09-14 06/24/2018 Tertiary NOT GIVENUNK [place] Insurance:SELF PAY [facility]: Effective Repository Date:2017-09-14 06/18/2018 Nella S Primary Nella S [place] [id number] Insurance:MEDICARE SadlerDOB: Community ENE PART A [facility] [id number] Number: Repository [address]Dbf: 330 [id number] [phone] () Date:2018-06-18 06/18/2018 Secondary Nella S Mel[place] Insurance:MEDICO-BENIGNO SadlerDOB: Community Policy Number: [id number] Hospital [id number] Repository Date:6404-19-80[address] [address]IE: 06/18/2018 Tertiary NOT GIVENUNK [place] Insurance:SELF PAY [facility] Number: Effective Repository Date:2018-06-18 06/02/2018 Nella S Primary Nella S [place] [id number] Insurance:MEDICARE SadlerDOB: Community ENE PART A [facility] [id number] Number: Repository [address]Rbz: [phone] [id number] [phone] () Date:2018-05-07 06/02/2018 Secondary Nella S [place] Insurance:MEDICO-BENIGNO SadlerDOB: Community Policy Number: [id number] Hospital [id number] Repository Date:0868-56-81[address] [address]TFKAE[address] [address]NH: 06/02/2018 Tertiary NOT GIVENUNK Mel[place] Insurance:SELF PAY [facility] Number: Effective Repository Date:2018-05-15
== END 2018-09-29 12:25 | disposition home or self-care (01) ==
LOC: ED 15:11 → PCU 16:26
PROVIDERS: Admitting Provider Internal Medicine; Emergency Provider Emergency Medicine; Family Provider Internal Medicine; PCP Internal Medicine; Referring Provider Internal Medicine; Visit Provider Internal Medicine
DX: R07.89 Other chest pain (principal); F41.9 Anxiety disorder, unspecified; K21.9 Gastro-esophageal reflux disease without esophagitis; E03.9 Hypothyroidism, unspecified; I10 Essential (primary) hypertension; F32.9 Major depressive disorder, single episode, unspecified; E78.5 Hyperlipidemia, unspecified; Z79.899 Other long term (current) drug therapy; R06.02 Shortness of breath
CPT/HCPCS: 36415; 71045; 78452; 80048; 80053; 81001; 82248; 84443; 84484; 85025; 85027; 85379; 85610; 85730; 93005; 93017; 93306; 96360; 96361; 99218; 99284; A9500; J7030; A4216; G0378

== ENCOUNTER 2019-01-08 12:59 | Emergency (ER) | payer MEDICARE, OTHER, SELFPAY ==
[2019-01-08 12:59] VITALS: BP 147/89; PULSE 80; RESP 16; TEMP 36.6; O2SAT 99; BMI 28.3; BMI 29.9
--- NOTE | 2019-01-08 13:20 | RAD_ITS ---
STUDY: X-RAY - RIGHT WRIST REASON FOR EXAM: Female, 68 years old. Right wrist pain after a fall TECHNIQUE: 3 view(s) of the wrist were obtained. COMPARISON: None. FINDINGS: There is heterogeneous demineralization of the radius and ulna. Normal radiocarpal articulation. Normal distal radioulnar articulation. Normal carpal bones. There is degenerative arthrosis of the carpal articulations. There is degenerative arthrosis of the carpometacarpal articulation of the thumb. Normal second through fifth carpometacarpal articulations. Normal visualized metacarpal bones. The soft tissue structures are unremarkable. There is chondrocalcinosis of the TFCC. RAD/Wrist min 3 Views IMPRESSION: 1. No fracture or malalignment. 2. Degenerative changes. Chondrocalcinosis. 3. Osteopenia with heterogeneity of the distal radius and ulna. Electronically Signed: Marck Dickey MD at 15:42 EDT , Service support ,
--- NOTE | 2019-01-08 13:21 | RAD_ITS ---
STUDY: X-RAY - LEFT FOOT CLINICAL: Female, 68 years old. Left foot pain after fall TECHNIQUE: 3 view(s) of the foot. COMPARISON: None. FINDINGS: Normal talus, calcaneus, and tarsal bones. Normal visualized subtalar, talonavicular, calcaneocuboid, tarsal and tarsometatarsal articulations. Normal metatarsi. There is degenerative arthrosis of the metatarsophalangeal joint of the hallux with a hallux valgus deformity and bunion. Normal tibial and fibular sesamoid bones. Normal interphalangeal joint of the great toe. Normal phalanges of the great toe. Normal second through fifth metatarsophalangeal joints. Normal interphalangeal joints and phalanges of the lesser toes. The soft tissue structures are unremarkable. RAD/Foot min 3 Views IMPRESSION: No fracture malalignment. Electronically Signed: Marck Dickey MD at 15:39 EDT , Service support ,
--- NOTE | 2019-01-08 13:21 | RAD_ITS ---
STUDY: X-RAY - RIGHT KNEE REASON FOR EXAM: Female, 68 years old. Pain after fall TECHNIQUE: 4 view(s) of the knee. COMPARISON: None. FINDINGS: Normal visualized distal femur. Normal visualized proximal tibia and fibula. Normal proximal tibiofibular articulation. Mild narrowing of the medial femorotibial compartment. Normal lateral femorotibial compartment. Normal patellofemoral articulation. There is no demonstrated joint effusion. The soft tissue structures are unremarkable. RAD/Knee 4 or More Views IMPRESSION: 1. Mild degenerative changes of the medial compartment. Electronically Signed: Marck Dickey MD at 15:41 EDT , Service support ,
--- NOTE | 2019-01-08 13:26 | ED.DCSUM_ITS ---
- ER Visit Summary Date of Service: 01/08/19 Chief Complaint: Fall History of Present Illness: The patient is a 68 F who tripped over a rug and fell onto concrete floor this morning. She did not strike her head or lose consciousness. She states she hit her right wrist and knee on the floor, then rolled and hit her left side. She reports multiple areas of pain. She was able to get up and ambulate without difficulty. Physical Examination: Vital signs unremarkable. Patient sitting upright in bed no acute distress. Head and neck examination was no obvious external sign of trauma. She has no C- spine tenderness. Heart is regular rate and rhythm. Lung sounds are clear. She has mild tenderness in the left lower ribs. No crepitus. Abdomen is soft with left mid abdominal tenderness. No ecchymosis. No guarding or rebound. Extremity examination reveals slight tenderness to the left anterior hip. She has tenderness over the left calcaneus without edema. Right lower extremity examination was tenderness of the right knee with no edema. Right wrist is tender with early ecchymosis but no edema. Full range of motion at all joints are noted. Test Results: Right wrist x-ray shows no fracture but evidence of osteopenia. Right knee x-ray shows mild degenerative changes. Left foot x-ray shows no fracture. Chest x-ray shows no acute process. CT abdomen pelvis shows no obvious lower rib fractures. She has no intra-abdominal fluid. There is nonca lcified nodule in the lingula. Left hip replacement is noted and unremarkable. Emergency Department Course and Treatment: Patient was given a dose of Ultram which she normally takes at home. On repeat evaluation she is resting more comfortably. Test results are discussed with patient and at bedside. Treatment Plan: [] Disposition: Discharge Impression: 1. Mechanical fall 2. Left rib contusion 3. Right wrist and knee contusion This note was generated with Klatcher dictation software. It may contain incorrect words, spelling, and punctuation that were not noted in review of the chart prior to signing ED Disposition - Plan for ED Patient: Referrals: Carmel Goncalves MD [Primary Care Provider] -
--- NOTE | 2019-01-08 15:00 | RAD_ITS ---
STUDY: X-RAY CHEST REASON FOR EXAM: Female, 68 years old. Pain after fall TECHNIQUE: PA and lateral views of the chest. COMPARISON: None. FINDINGS: Small nodular density in left lung base which is grossly similar since 09/28/2018. There is no demonstrated pleural abnormality. Normal size heart. Normal mediastinum and craig. Normal visualized pulmonary arteries. Normal visualized aortic arch and descending thoracic aorta. There is a dextroscoliosis of the thoracic spine. Normal visualized ribs, clavicles, and shoulders. Hiatal hernia is noted. RAD/Chest PA and Lateral IMPRESSION: No acute cardiopulmonary process. Electronically Signed: Marck Dickey MD at 15:39 EDT , Service support ,
--- NOTE | 2019-01-08 15:05 | CT_ITS ---
STUDY: CT ABDOMEN AND PELVIS WITHOUT CONTRAST REASON FOR EXAM: Female, 68 years old. Fall, left rib pain RADIATION DOSAGE (If Supplied By Facility): CTDIvol = ( 9.28 ) mGy, DLP = ( 459.26 ) mGycm TECHNIQUE: Transaxial images were obtained from the dome of the diaphragm to the symphysis pubis without oral contrast, and without intravenous contrast. Sagittal and coronal images were reconstructed. Individualized dose optimization techniques were used for this CT. COMPARISON: None. FINDINGS: Noncalcified nodule in the lingula measures 1.1 cm and is contiguous with reticulation. There is atelectasis in both lung bases. The visualized portions of the heart are within normal limits. The visualized ribs are grossly intact without demonstrated fracture. Normal liver. Normal gallbladder and extrahepatic biliary system. Normal spleen. Normal pancreas. Normal bilateral adrenal glands. There are parapelvic right renal cysts. 2 mm nonobstructing calculus of the right kidney as seen on image 74. No ureteral calculi are identified. There are vascular phleboliths of the pelvis. There is moderate cortical atrophy of the left kidney, consistent with chronic medical renal disease. There is a large hiatal hernia composed mostly of the fundus of the stomach. Normal small intestine. Normal colon. There is non-visualization of the appendix. There is diffuse atherosclerotic calcification of the abdominal aorta, without a demonstrated aneurysm. Normal inferior vena cava. Normal retroperitoneum. Normal urinary bladder. Left hip replacement causes moderate spray artifact. There is a small umbilical hernia containing fat. There are diffuse degenerative changes of the visualized lumbar spine. There is levoscoliosis. CT/Abdomen/Pelvis without Cont IMPRESSION: 1. No intra-abdominal fluid or pneumoperitoneum. No obvious rib fracture (ribs incompletely visualized). 2. 1.1 cm lingular noncalcified nodule could represent scarring or true pulmonary nodule. No available comparison studies at time of dictation. Follow-up is recommended. 3. Nonobstructing right renal calculus (no hydronephrosis). 4. Right parapelvic renal cyst. 5. Moderate left renal atrophy. 6. Hiatal hernia. 7. Left hip replacement. Electronically Signed: Marck Dickey MD at 15:37 EDT , Service support ,
[2019-01-08] MEDS: traMADol 50 MG Tablet PO (15:47)
--- NOTE | 2019-01-08 17:00 | ED.DEP ---
ED Disposition - Plan for ED Patient: Disposition: Home or Assisted Living Instructions: ED Mechanical Fall, ED Contusion Rib Referrals: Carmel Goncalves MD [Primary Care Provider] - 1 Week if not improving
== END 2019-01-08 17:40 | disposition home or self-care (01) ==
PROVIDERS: Emergency Provider Emergency Medicine; Family Provider Internal Medicine; PCP Internal Medicine
DX: S20.212A Contusion of left front wall of thorax, initial encounter (principal); S60.211A Contusion of right wrist, initial encounter; S80.01XA Contusion of right knee, initial encounter; W18.09XA Striking against other object with subsequent fall, initial encounter; Y93.9 Activity, unspecified; Y92.9 Unspecified place or not applicable; Y99.9 Unspecified external cause status; M85.80 Other specified disorders of bone density and structure, unspecified site; K21.9 Gastro-esophageal reflux disease without esophagitis; Z79.899 Other long term (current) drug therapy; Z96.642 Presence of left artificial hip joint
CPT/HCPCS: 71046; 73110; 73564; 73630; 74176; 99282

== ENCOUNTER 2019-12-13 10:53 | Outpatient (RCR) | payer MEDICARE, OTHER, SELFPAY ==
[2019-09-20 07:14] VITALS: BMI 28.9
== END 2019-12-13 19:00 | disposition home or self-care (01) ==
LOC: PT 10:53
PROVIDERS: PCP Internal Medicine; Visit Provider Nurse Practitioner Acute Care
DX: M54.16 Radiculopathy, lumbar region (principal); Z98.890 Other specified postprocedural states

== ENCOUNTER 2019-12-21 11:30 | Outpatient (RCR) | payer MEDICARE, OTHER, SELFPAY ==
[2019-09-20 07:14] VITALS: BMI 28.9
--- NOTE | 2019-10-25 11:51 | HP.PTEVAL_ITS ---
Patient's Visit Information TANGELA BENÍTEZ is a 69 year old F referred to Physical Therapy by MONICA COCHRAN with a diagnosis of S/P LUMBAR SURGERY 09/21/2019. Date of Evaluation: 10/25/19 Physical Therapist: Tamiko Her PT, Cert MDT - Visit Plan Frequency: 2-3x /Week Duration: 4-6 Weeks Plan: NO LUMBAR ROM FOR 3 WEEKS. WEAN FROM BRACE TOLERATED. POSTURE CORRECTION/STRENGTHENING, INSTRUCTION IN APPROPRIATE BODY MECHANICS AND ACTIVITY MODIFICATIONS. DLS STARTING WITH A NEUTRAL SPINE PROGRESSING ROM TOLERATED. LUIS ALBERTO LE ROM, STRETCHING AND STRENGTHENING. HEP INSTRUCTION. - Subjective Findings: DX: S/P LEFT L45S1 UNILATERAL LAMINECTOMIES. LEFT L45S1 PARTIAL FACETECTOMY, FORAMINOTOMIES AND MICRODISCECTOMIES. DOS 09/21/19. Work/Leisure: RETIRED. Present symptoms: LOW BACK PAIN. NO LE PAIN, NUMBNESS OR TINGLING BUT WEAKNESS. LEFT GROIN PAIN. THE GROIN PAIN STARTED ABOUT 4PM YESTERDAY. PATIENT RELATES THIS NEW ONSET OF LEFT GROIN PAIN TO WALKING AROUND THE HOUSE WITHOUT HER WALKER. CAN'T REMEMBER IF SHE WAS WEARING HER BACK BRACE OR NOT. WEANING OUT OF BRACE. WEARING BRACE ONLY ABOUT 2 HOURS A DAY NOW. HAS BRACE ON NOW. Present since: A FEW YEARS. Pain Scale: WORST 7/10, LEAST 0/10. Currently: 0/10 (CURRENTLY NEW LEFT GROIN PAIN 5/10). Commenced as a result of: NO APPARENT REASON. Worse: BEING UP TOO MUCH, SITTING TOO LONG. Better: ICE AND REST LYING ON BACK WITH HEAD AND LEGS SLIGHTLY ELEVATED. Disturbed sleep: YES. Previous history/Previous treatment: THIS IS HER FIRST BACK SURGERY (09/21/19) L THR 2017, PHYSICAL THERAPY SEVERAL TIMES BEFORE SURGERY. PAIN MGMT - RUDY'S BEFORE SURGERY. CHIROPRACTOR BEFORE SURGERY. PATIENT REPORTS SHE PRLONGED HAVING BACK SURGERY LONG SHE COULD. 10/11/19 SHE HAD TO GO TO URGENT CARE AND PUT ON PREDNISONE FOR PAIN AND INFLAMMATION - DX'D WITH ACUTE INFLAMMATORY PROCESS. SHE RELATES THE EPISODE OF INFLAMMATION TO WEANING OUT OF HER BRACE TOO QUICKLY. Coughing/sneezing/straining: POSITIVE. Gait: PATIENT REPORTS THAT PRIOR TO NEW ONSET OF LEFT GROIN PAIN SHE WAS WALKING ABOUT 75% OF THE TIME WITHOUT HER BRACE OR WALKER. Difficulty initiating urinatin: NO. Accidents: FALL 2018 - COMPRESSION FX'S T11 AND T12, LEFT KNEE ACL TEAR. ALSO FELL IN DECEMBER 2018 - FELL OVER A ROLLED UP RUG. Unexplained weight loss: NO. Imaging: NO IMAGING SINCE SURGERY. PMH/Recent major surgery: OSTEOPOROSIS. HTN. HYPOTHYROIDISM, HYPERPARATHYROIDISM, ANXIETY, DEPRESSION. PATIENT LOST HER SON IN 2013. OTHER: PATIENT REPORTS HER LEFT GROIN PAIN CAME OUT OF THE BLUE YESTERDAY BUT SHE DOES RECALL SOME HIP PAIN EARLY IN THE DAY. LEFT THR 2016 - Objective Sitting/Standing Posture: POOR. SLOUCHED. FH. RS'S. Lordosis: REDUCED. SCOLIOSIS. Active Correction of posture: WORSE. Other Observations: INDEP UE DEPENDENT ANTALGIC TRANSFERS. INDEP ANTALGIC GAIT WITH DECREASED CADANCE WITH FWW LIMPING ON LLE X APPROX 300 FEET X 2 IN AND OUT OF PT. WEARING BACK BRACE. THIS PT RECOMMENDED BACK BRACE AND WALKER WHILE AMBULATING AT ALL TIMES DUE TO NEW LEFT GROIN PAIN UNTIL TOLD OTHERWISE BY SURGEON. Motor deficit: RIGHT LE: HIP 4-/5, KNEE EXT 4/5, KNEE FLEX 4/5, ANKLE 5/5. LEFT LE: HIP 3-/5, KNEE EXT 3-/5, KNEE FLEX 3+/5, ANKLE 5/5. Sensory deficit: NO - LUIS ALBERTO LE LIGHT TOUCH SENSATION INTACT AND SYMMETRICAL. ROM deficit: LIMITED LEFT HIP IR COMPARED TO RIGHT. Reflexes: NT. Dural Signs: POSITIVE LUIS ALBERTO LE'S. Lumbar mvmt loss: NT. Core strength: POOR. Palpation: TENDERNESS WITH PALPATION OF THE LOW BACK AND LEFT LATERAL HIP REGIONS AND DOWN LEFT LATERAL THIGH. TREATMENT: INSTRUCTED PATIENT IN PROPER POSUTRE CONTROL AND APPROPRIATE ACTIVITY MODIFICATIONS. THIS PT RECOMMENDED BACK BRACE AND WALKER AT ALL TIMES UNTIL INSTRUCTED OTHERWISE BY SURGEON DUE TO NEW LEFT GROIN PAIN. RE-TRAINING GIVEN FOR POSTURE AND RECOMMENDED AVOIDANCE OF ELEVATING HEAD AND FOOT OF BED IF POSSIBLE. - Goals Goal 1:: DECREASE C/O LOW BACK AND LEFT LE PAIN Goal Time Frame: 4-6 Weeks Goal 2:: IMPROVE PERSONAL CARE, LIFTING, WALKING, SITTING, STANDING, SLEEP, SOCIAL LIFE, TRAVEL AND HOMEMAKING FUNCTION. Goal Time Frame: 4-6 Weeks Goal 3:: INSTRUCT IN PROPHYLAXIS Goal Time Frame: 4-6 Weeks - Rehabilitation Potential Rehabilitation Potential: Fair - Anticipated Interventions Patient/Client Instruction: Educate patient on: Condition, Plan of Care, Risk Factors, Benefits of Fitness Program For the Purpose of:: To improve self management Therapeutic Exercise to Include: Strength training, Body mechanics, Postural training, Flexibilty training, Dynamic Lumbar Stabilization For the Purpose of:: To decrease pain, To increase ROM, To improve muscle performance and motor function, To increase tolerance to activity/condition/position, To improve ability of physical actions for home/community/work/leisure Thank you for the opportunity to evaluate your patient. For Medicare and Medicare HMO plans, please review the plan of care and approve it. It will need to be FAXED BACK to us at [phone] for Medicare purposes. For Medicare only, by signing this I certify the plan of care. Please let me know if there are questions or concerns regarding this plan of care. Physician Signature: ___Date:
--- NOTE | 2019-11-24 11:45 | HP.PTDCSUM ---
HP - PT D/C Summary It has been my pleasure to treat TANGELA BENÍTEZ under orders from MONICA COCHRAN, for the diagnosis of S/P LUMBAR SURGERY 09/21/2019 for a total of 8 visit(s). Discharge Date: 11/24/19 Please see the following information for a summary of their discharge status. - Subjective Subjective: PATIENT REPORTS IT HAS BEEN 8 WKS AND SHE FEELS ALMOST BACK TO NORMAL. INTERMITTENT LBP NOW CENTRAL AND TO THE LEFT UP TO 4/10. - Pain Lumbar spine Pain Intensity (Out of 10): 0 - Overall Improvement % Improvement: 80 - Objective Objective/Function: PATIENT WAS SEEN TODAY FOR RE-ASSESSMENT OF PROGRESS TOWARD THE SET PT GOALS AND THE NEED FOR FURTHER PHYSICAL THERAPY VS READINESS FOR DISCHARGE. UPON EXAM TODAY: PATIENT HAS MADE GOOD PROGRESS WITH PT AND HAS WEANED OUT OF HER BRACE AND OFF OF ASSISTIVE DEVICES AT THIS POINT. SHE STILL HAS LLE WEAKNESS GREATER THAN RIGHT AND HER LOW BACK PAIN IS GREATER ON THE LEFT THAN THE RIGHT. GENTLE SKTC AND LTR EX CAN ONLY BE PERFORMED THROUGHT A SMALL ROM OR PAIN FLARES. SHE IS TOLERATING NEUTRAL SPINE EX'S WELL AND IS INDEP WITH A HEP. SHE WOULD REALLY LIKE TO BE DISCHARGE AND WILL FOLLOW UP WITH DR. COCHRAN NEXT MONTH. - Goals Goal 1:: DECREASE C/O LOW BACK AND LEFT LE PAIN Goal Progress: Goal Met Goal 2:: IMPROVE PERSONAL CARE, LIFTING, WALKING, SITTING, STANDING, SLEEP, SOCIAL LIFE, TRAVEL AND HOMEMAKING FUNCTION. Goal Progress: Goal Met Goal 3:: INSTRUCT IN PROPHYLAXIS Goal Progress: Goal Met - Plan Plan: D/C TO HEP. - D/C Information If there are questions or concerns regarding this patient's physical therapy, please feel free to call me at [phone]. Thank you for the referral of this patient. Sincerely, Tamiko Her, PT, Cert MDT
--- NOTE | 2019-12-13 12:58 | HP.PTREVAL ---
MONICA COCHRAN, It has been my pleasure to treat TANGELA BENÍTEZ over the last 9 visits for S/P LUMBAR SURGERY 09/21/2019. Please see the progress note below for an update on the physical therapy plan of care! Subjective: PATIENT REPORTS THAT AFTER HER LAST VISIT HERE IN PT SHE STARTED DOING MORE STANDING TO BAKE, TRIED TO RESUME MORE NORMAL DAILY ACTIVITIES, STARTED SOME BENDING AND TRIED TO DO THE STEPS IN HER HOUSE. THIS INCREASED HER PAIN AND FATIGUE. UPON RE-CHECK WITH DR. COCHRAN FURTHER PT WAS ORDERED AND MRI IS BEING CONSIDERED IF PAIN AND FUNCTION DO NOT BEGIN TO IMPROVE AGAIN. SHE REPORTS SHE IS NOW HAVING PAIN IN HER BACK, PAIN IN HER LEFT HIP, PAIN DOWN HER LEG TO HER ANKLE. SHE REPORTS LOWER LEG NUMBNESS NOW WHICH IS NEW. SHE REPORTS SHE HAS DONE WATER THERAPY IN THE PAST BUT SHE DOES NOT WANT TO GO THAT ROUTE AGAIN AT THIS TIME. SHE STATES SHE WILL CONSIDER IT IF NECESSARY THOUGH. PATIENT REPORTS THAT AFTER HER LAST PT SESSION SHE CONTINUED SOME OF HER HOME EX'S BUT HAD TO STOP WHEN HER PAIN INCREASED. HAS DONE HER HOME EX PROGRAM FOR ABOUT 10 DAYS OR SO NOW. HOPING TO GO ON CRUISE DECEMBER 30 2019. *STILL HAVING LEFT GROIN PAIN THAT STARTED AFTER SURGERY BEFORE STARTING OUT-PT PT* Objective/Function: PATIENT WAS SEEN TODAY FOR RE-ASSESSMENT OF PROGRESS TOWARD THE SET PT GOALS AND THE NEED FOR FURTHER PHYSICAL THERAPY VS READINESS FOR DISCHARGE. UPON EXAM TODAY: PATIENT IS HAVING MORE PAIN AND DYSFUNCTION THAN LAST SEEN. SHE HAS NEW C/O NUMBNESS IN HER LEFT LOWER LEG AND MORE BACK AND LEFT LE PAIN IN GENERAL LIMITING HER ADL'S. SHE IS CONTINUEING TO REPORT LEFT GROIN PAIN ALSO. SHE DEMO'S. INDEP UE DEPENDENT ANTALGIC TRANSFERS. INDEP ANTALGIC GAIT WITH DECREASED CADANCE WITHOUT AD AND MILD LIMP ON LLE. Motor deficit: RIGHT LE: HIP 4-/5, KNEE EXT 4/5, KNEE FLEX 4/5, ANKLE 5/5. LEFT LE: HIP 3-/5, KNEE EXT 3-/5, KNEE FLEX 3+/5, ANKLE 5/5. Sensory deficit: NO - LUIS ALBERTO LE LIGHT TOUCH SENSATION INTACT AND SYMMETRICAL DESPITE REPORTS OF LEFT LOWER LEG NUMBNESS. ROM deficit: LIMITED LEFT HIP IR, ER, FLEX AND ABD COMPARED TO RIGHT AND THIS PT PROCEEDED VERY CAUTIOUSLY WITH TESTING DUE TO REPORTS OF INCREASED PAIN TESTING THROUGH SMALL ROM. Reflexes: NT. Dural Signs: POSITIVE LUIS ALBERTO LE'S. Lumbar mvmt loss: FLEX - MAURICE. EXT - MAURICE. RIGHT SG - MAURICE. LEFT SG - MOD. INCREASED PAIN WITH LUMBAR ROM TESTING ALL PLANES. Core strength: POOR. Palpation: TENDERNESS WITH PALPATION OF THE LOW BACK AND LEFT LATERAL HIP REGIONS AND DOWN LEFT LATERAL THIGH. LEFT CALF IS NOT TENDER AND HOMANS SIGN IS NEGATIVE. PATIENT IS A GOOD CANDIDATE TO TRY TO RESUME PT SLOWLY BUT SHOULD CONTACT HER PHYSICIAN IF SHE CONTINUES TO GET MORE PAIN. PATIENT MAY BE A GOOD CANDIDATE FOR AQUATIC THERAPY IF SHE CAN'T TOLERATE LAND PT BUT SHE IS CONCERNED ABOUT BEING ABLE TO GET IN AND OUT OF HER SWIM SUIT DUE TO BACK AND LLE PAIN AND LIMITED MOBILITY. Plan Plan: MONITOR LEFT HIP PAIN AND ROM CLOSELY. MONITOR LLE RADIATION OF PAIN, NUMBNESS AND TINGLING CLOSELY. CONSIDER AQUATIC THERAPY IF NOT TOLERATING LAND WELL. POSTURE CORRECTION/STRENGTHENING, INSTRUCTION IN APPROPRIATE BODY MECHANICS AND ACTIVITY MODIFICATIONS. DLS WITH A NEUTRAL SPINE TOLERATED. GENTLE LUIS ALBERTO LE ROM, STRETCHING AND STRENGTHENING. HEP INSTRUCTION. Goals Goal 1:: DECREASE C/O LOW BACK AND LEFT LE PAIN Goal Time Frame: 4-6 Weeks Goal Progress: Goal Met Goal 2:: IMPROVE PERSONAL CARE, LIFTING, WALKING, SITTING, STANDING, SLEEP, SOCIAL LIFE, TRAVEL AND HOMEMAKING FUNCTION. Goal Time Frame: 4-6 Weeks Goal Progress: Goal Met Goal 3:: INSTRUCT IN PROPHYLAXIS Goal Time Frame: 4-6 Weeks Goal Progress: Goal Met Anticipated Interventions Patient/Client Instruction: Educate patient on: Condition, Plan of Care, Risk Factors, Benefits of Fitness Program For the Purpose of:: To improve self management Therapeutic Exercise to Include: Strength training, Body mechanics, Postural training, Flexibilty training, Dynamic Lumbar Stabilization For the Purpose of:: To decrease pain, To increase ROM, To improve muscle performance and motor function, To increase tolerance to activity/condition/position, To improve ability of physical actions for home/community/work/leisure Please do not hesitate to contact me at [phone] by phone or if you have questions or concerns regarding this new plan of care! Sincerely, Tamiko Her, PT, Cert MDT
--- NOTE | 2020-04-24 13:33 | HP.PTDCNRP_ITS ---
TANGELA BENÍTEZ was seen in my office for initial evaluation on 10/25/19. The following Plan of Care was established for this patient: Initial Frequency: 2-3x /Week Initial Duration: 4-6 Weeks Patient/Client Instruction: Educate patient on: Condition, Plan of Care, Risk Factors, Benefits of Fitness Program For the Purpose of:: To improve self management Therapeutic Exercise to Include: Strength training, Body mechanics, Postural training, Flexibilty training, Dynamic Lumbar Stabilization For the Purpose of:: To decrease pain, To increase ROM, To improve muscle performance and motor function, To increase tolerance to activity/c ondition/position, To improve ability of physical actions for home/community/work/leisure This patient was last seen in our office . Pertinent comments regarding their Physical therapy will appear below: This patient has not returned to Physical Therapy and is appropriate to return to MD for further follow-up as needed. At this point I will be discontinuing this patient from physical therapy. I would be happy to see this patient again in the future if found appropriate by the physician. Thank you! Tamiko Her, PT, Cert MDT
== END 2019-12-21 19:00 | disposition home or self-care (01) ==
LOC: PT 11:30
PROVIDERS: Family Provider Internal Medicine; PCP Internal Medicine
DX: Z48.89 Encounter for other specified surgical aftercare (principal); M54.16 Radiculopathy, lumbar region; Z98.890 Other specified postprocedural states
CPT/HCPCS: 97014; 97110; 97112; 97162; 97164; 97530; G0283

== ENCOUNTER → 2019-12-21 14:05 | Outpatient (CLI) | payer MEDICARE, OTHER, SELFPAY ==
[2019-12-21 13:39] VITALS: BMI 28.3
--- NOTE | 2019-12-21 14:08 | RAD_ITS ---
STUDY: X-RAY - PELVIS AND LEFT HIP REASON FOR EXAM: Female, 69 years old. LOW BACK AND LEFT HIP PAIN TECHNIQUE: 3 views of the pelvis and hip. COMPARISON: Previous left hip study of 08/31/2017 FINDINGS: There is a non-specific bowel gas pattern. Bilateral pelvic phleboliths are present. Normal bilateral iliac wings, sacroiliac joints and visualized sacrum. Normal bilateral superior and inferior pubic rami. Normal pubic symphysis. Normal bilateral ischial tuberosities. Status post total left hip replacement changes are noted with implants appearing in good position. There is no evidence of implant loosening or new associated fracture or dislocation. There are degenerative changes of the visualized lower lumbar spine. RAD/HIP, UNI W/ Pelvis 2-3 Views IMPRESSION: Status post total left hip replacement changes noted with implants appearing in good position. There is no evidence of implant loosening or new associated fracture or dislocation. Degenerative changes of the visualized lumbar spine. Electronically Signed: Johann Marcus MD at 16:44 EDT , Service support ,
--- NOTE | 2019-12-21 14:08 | RAD_ITS ---
STUDY: X-RAY - LUMBOSACRAL SPINE REASON FOR EXAM: Female, 69 years old. LOW BACK AND LEFT HIP PAIN TECHNIQUE: 6 view(s) of the lumbosacral spine were obtained. COMPARISON: 02/19/2017. FINDINGS: Normal lumbar lordosis. There is significant scoliosis of thoracolumbar spine, convexity to the left. There is normal alignment of the vertebrae. There is diffuse demineralization with multi-level endplate spondylosis. There is multi-level degenerative disc disease with multi-level disc space narrowing. Moderate compression fracture of T12. Normal bilateral sacral ala, sacroiliac joints, and visualized sacrum. Normal visualized soft tissue structures. RAD/L/S Spine w Bend Min 6 Vw IMPRESSION: Osteopenia along with multilevel spondylosis/degenerative disease. No spondylolisthesis or evidence of dynamic instability. Compression fracture of T12, stable in the interval. Electronically Signed: Pascale Freed MD at 0:38 EDT , Service support ,
== END ==
PROVIDERS: PCP Internal Medicine; Referring Provider Orthopaedic Surgery; Visit Provider Orthopaedic Surgery
DX: M79.605 Pain in left leg (principal); Z96.652 Presence of left artificial knee joint
CPT/HCPCS: 72114; 73502

== ENCOUNTER → 2020-06-06 17:47 | Outpatient (CLI) | payer MEDICARE, OTHER, SELFPAY ==
[2020-02-06 09:55] VITALS: BMI 28.3
== END ==
PROVIDERS: PCP Internal Medicine
DX: R19.7 Diarrhea, unspecified (principal)
CPT/HCPCS: 87635; 94799; U0003

== ENCOUNTER 2020-09-29 08:14 | Emergency (ER) | payer MEDICARE, OTHER, SELFPAY ==
[2020-02-06 09:55] VITALS: BMI 28.3
[2020-09-29 08:15] VITALS: BP 143/89; PULSE 91; RESP 18; TEMP 36; O2SAT 98; BMI 29.2
--- NOTE | 2020-09-29 08:54 | RAD_ITS ---
STUDY: X-RAY - LEFT SHOULDER REASON FOR EXAM: Female, 70 years old. fell, shoulder pain and immobility TECHNIQUE: 3 view(s) of the shoulder. COMPARISON: None. FINDINGS: Normal glenohumeral articulation. Normal acromioclavicular joint. Normal acromion. There is a longitudinal lucency of the superior/lateral proximal humerus at the base of the greater tuberosity. The soft tissue structures are unremarkable. Normal visualized pulmonary apex. There is dextroscoliosis of the thoracic spine. RAD/Shoulder min 2 Views IMPRESSION: Nondisplaced greater tuberosity fracture. Electronically Signed: Marck Dickey MD ([place]) at 9:33 EST , Service support ,
--- NOTE | 2020-09-29 08:55 | ED.VISSUMM ---
- ER Visit Summary Date of Service: 09/29/20 Chief Complaint: Left shoulder pain History of Present Illness: The patient is a 70 F who presents with left shoulder pain that began after a fall last night. Patient states she tripped and fell. Patient states she injured her left shoulder. Patient states the pain is sharp, aching, and throbbing. Patient states the pain is worse with any movement. Patient denies any head injury or loss of consciousness. Patient denies any paresthesias or weakness. Patient states she normally walks with out any assistance but occasionally uses a cane. Physical Examination: Vital signs are stable. Patient is afebrile. Patient is in no acute distress. Musculoskeletal exam reveals tenderness over the left proximal humerus. There is some edema noted. There is no ecchymosis. There is no obvious deformity. There is no tenderness over the clavicle or AC joint. Range of motion was limited in all motions of the left shoulder secondary to pain. There is no tenderness over the left elbow. Sensation was intact to light touch in the radial, median, and ulnar areas. Strength is 5/5 in the radial, median, and ulnar areas. Test Results: X-rays of the left shoulder were obtained. There are 4 views. On my interpretation, there is a nondisplaced fracture of the greater tuberosity. There is no dislocation noted. There is some mild soft tissue swelling. There are no rib fractures noted. Radiologist also interpreted the x-ray and agrees. Emergency Department Course and Treatment: Patient was given a dose of morphine here. Patient was placed in a sling and swath. Patient was given a prescription for [place] for pain. Patient was instructed to follow-up with her primary care physician in 5 to 7 days. Patient was also given a referral for orthopedics. Patient understood and was agreeable with the plan. All questions were answered. Disposition: Discharge home Impression: Left proximal humerus fracture This note was generated with [employer] dictation software. It may contain incorrect words, spelling, and punctuation that were not noted in review of the chart prior to signing ED Disposition - Plan for ED Patient: Disposition: Home or Assisted Living Diagnosis: Closed fracture of left proximal humerus Instructions: ED Fracture, Shoulder Prescriptions: Hydrocodone Bitart/Apap 5-325 [[place] 5MG-325MG] 1 tab PO Q6H PRN PRN 3 Days #10 tab PRN Reason: Pain Prescription Printed Referrals: Carmel Goncalves MD [Primary Care Provider] - 5-7 Days
[2020-09-29] MEDS: Ondansetron 4 MG/2 ML Vial IV (09:06)
[2020-09-29] MEDS: Morphine 4 MG/ML Syringe IV (09:07)
[2020-09-29 11:26] VITALS: RESP 17
== END 2020-09-29 11:30 | disposition home or self-care (01) ==
PROVIDERS: Emergency Provider Emergency Medicine; PCP Internal Medicine
DX: S42.255A Nondisplaced fracture of greater tuberosity of left humerus, initial encounter for closed fracture (principal); W01.0XXA Fall on same level from slipping, tripping and stumbling without subsequent striking against object, initial encounter; Y93.9 Activity, unspecified; Y92.9 Unspecified place or not applicable; Y99.9 Unspecified external cause status; I10 Essential (primary) hypertension; E03.9 Hypothyroidism, unspecified; K58.9 Irritable bowel syndrome, unspecified; Z79.899 Other long term (current) drug therapy
CPT/HCPCS: 73030; 96374; 96375; 99284; A4216; J2405

== ENCOUNTER 2020-11-30 11:00 | Outpatient (RCR) | payer MEDICARE, OTHER, SELFPAY ==
--- NOTE | 2020-11-02 16:12 | HP.PTEVAL_ITS ---
Patient's Visit Information TANGELA BENÍTEZ is a 70 year old F referred to Physical Therapy by JOSE Roper with a diagnosis of LEFT PROXIMAL HUMERUS FRACTURE. Date of Evaluation: 11/02/20 Physical Therapist: Tamiko Her PT, Cert MDT - Visit Plan Frequency: 2-3x /Week Duration: 2 Months Plan: POSTURE CORRECTION/STRENGTHENING, INSTRUCTION IN APPROPRIATE BODY MECHANICS AND ACTIVITY MODIFICATIONS. L UE ROM, STRETCHING AND STRENGTHENING. HEP INSTRUCTION. - Subjective Diagnosis: LEFT PROXIMAL HUMERUS FRACTURE (GREATER TUBRICLE/SURGICAL NECK). PATIENT IS RIGHT HAND DOMINANT. Physician Restrictions: PATIENT REPORTS THE DOCTOR TOLD HER TO TAKE IT SLOW AND THAT IT IS GOING TO TAKE A LONG TIME TO HEAL. Work/Leisure: RETIRED. Present symptoms: LEFT SHLD AND UPPER ARM PAIN. Present since: SEP 28 2020. Pain Scale: Worst -5/10 Least - 0/10. Currently: 0/10. Commenced as a result of: FALL AT HOME IN BATHROOM. Symptoms at onset: SHOULDER PAIN. Worse: MOVING IT, TAKING IT AWAY FROM BODY, DRESSING, GETTING IN AND OUT OF BED, GETTING IN AND OUT OF CAR. Better: ICE, REST, SLING, PREDNISONE, TYLONOL. Disturbed sleep: YES. Previous history/Previous treatment: MAYBE REMOTE LEFT FOREARM FX IN CHILDHOOD. This episode: SLING. INSTRUCTED TO START PENDULUM EX AT LAST FOLLOW UP 10/23/20 PER PATIENT REPORT BUT STATES SHE ONLY TRIED IT ABOUT ONCE AND ISN'T SURE SHE IS DOING IT RIGHT. Gait: NO NEW CHANGES BUT DOES HAVE SOME BALANCE PROBLEMS. NOT CURRENTLY USING ANY ASSISTIVE DEVICES. Unexplained weight loss: NO. Imaging: LEFT SHOULDER. FOLLOW UP X-RAY SHOWED HEALING PER PATIENT REPORT AND NO SURGERY RECOMMENDED AT THIS TIME. PMH/Recent major surgery: PMH/Recent major surgery: OSTEOPOROSIS. HTN. HYPOTHYROIDISM, HYPERPARATHYROIDISM, ANXIETY, DEPRESSION. PATIENT LOST HER SON IN 2013. OTHER: PATIENT REPORTS HER LEFT GROIN PAIN CAME OUT OF THE BLUE YESTERDAY BUT SHE DOES RECALL SOME HIP PAIN EARLY IN THE DAY. LEFT THR 2017. FALL 2018 - COMPRESSION FX'S T11 AND T12, LEFT KNEE ACL TEAR. ALSO FELL IN DECEMBER 2018 - FELL OVER A ROLLED UP RUG. OTHER: PATIENT REPORTS RIGHT UE (UNINVOLVED) PAIN FLARE UP FOR NO APPARENT REASON ABOUT 2 WEEKS AGO TREATED WITH PREDNISONE AND IT IS BETTER NOW. - Objective Sitting Posture/Standing Posture: POOR. FH. RSH'S. LEFT SHLD LEVEL LOWER THAN RIGHT. Active Correction of posture: INCREASES L SHLD PAIN. Other Observations: INDEP GAIT INTO PT. DIFFICULT BUT INDEP TRANSFERS SIT TO SUPINE AND REVERSE DUE TO LEFT SHLD PAIN. Motor deficit: MANUAL MUSCLE TESTING NOT PERFORMED ON LUE DUE TO FRACTURE TODAY AND THIS PT AND PATIENT AGREED TO HOLDING RIGHT UE TESTING DUE TO RECENT RIGHT SHLD PAIN. Sensory deficit: LUIS ALBERTO UE LIGHT TOUCH SENSATION IS GROSSLY INTACT AND SYMMETRICAL BUT INCREASED LEFT UPPER ARM AND SHLD SENSATIVITY WITH TESTING COMPARED TO RIGHT. ROM deficit: RIGHT UE WFL. FULL LEFT ELBOW, FOREARM, WRIST AND HAND AROM. AROM LEFT SHLD IN SITTING: FLEX 40 DEG, ABD 32 DEG. PROM L SHLD IN SUPINE: FLEX 70 DEG, ABD 45 DEG, IR TO ABDOMEN, ER 20 DEG WITH SHLD ADDUCTED. Postural strength: POOR. Palpation: TENDERNESS THROUGHOUT L SHOULDER AND UPPER ARM REGIONS. OTHER: PATIENT WITH REPORTS OF LEFT POSTERIOR AND LATERAL SHLD REGION TINGLING WITH SELF PASSIVE EX TODAY BUT DID NOT REMAIN AFTER EX. TREATMENT: GENTLE PROM LEFT SHLD INTO FLEX, ABD, IR AND ER. INSTRUCTED PATIENT IN HOME PENDULUM EX INTO FLEX/EXT, AB/ADDUCTION, CW AND CCW. ALSO INSTRUCTED PATIENT IN GENTLE TABLE WALK AWAYS FOR PASSIVE FLEXION TOLERARED. INSTRUCTED IN USE OF L SHLD ICE AND HEAT NEEDED ALSO. PATIENT COMMNICATED A GOOD UNDERSTANDING OF ALL INSTRUCTIONS AFTER GIVEN AND DEMO'D GOOD EX TECHNIQUE. - Goals Goal 1:: DECREASE C/O L UE SYMPTOMS Goal Time Frame: 6-8 Weeks Goal 2:: INCREASE FUNCTIONAL ROM OF L UE Goal Time Frame: 6-8 Weeks Goal 3:: INCREASE FUNCTIONAL STRENGTH OF LUE Goal Time Frame: 6-8 Weeks Goal 4:: PATIENT WILL BE INDEP WITH A HEP FOR CONTINUED IMPROVEMENT ONCE FORMAL PHYSICAL THERPAY CONCLUDES. Goal Time Frame: 6-8 Weeks - Anticipated Interventions Patient/Client Instruction: Educate patient on: Condition, Plan of Care, Risk Factors, Benefits of Fitness Program For the Purpose of:: To improve self management Therapeutic Exercise to Include: Strength training, Body mechanics, Postural training, Flexibilty training, Neuromotor development, Passive ROM, Active ROM, Scapular Strength/Stabilization For the Purpose of:: To decrease pain, To increase ROM, To improve muscle performance and motor function, To improve ability to perform ADL's, To increase tolerance to activity/condition/position, To improve ability of physical actions for home/community/work/leisure, To decrease soft tissue restriction, To improve ability to perform tasks related to life management Cryotherapy (ice pack, ice massage): Yes Thermo therapy (hot pack): Yes For the Purpose of:: To decrease pain, To improve nutrient delivery to tissue Thank you for the opportunity to evaluate your patient. For Medicare and Medicare HMO plans, please review the plan of care and approve it. It will need to be FAXED BACK to us at [phone] for Medicare purposes. For Medicare only, by signing this I certify the plan of care. Please let me know if there are questions or concerns regarding this plan of care. Physician Signature: Date:
--- NOTE | 2020-11-30 11:54 | HP.PTREVAL ---
JOSE Roper, It has been my pleasure to treat TANGELA BENÍTEZ over the last 8 visits for LEFT PROXIMAL HUMERUS FRACTURE. Please see the progress note below for an update on the physical therapy plan of care! Subjective: PATIENT REPORTS SHE IS DOING SO MUCH BETTER. REPORTS SHE HAD A FOLLOW UP BRISSA'T WITH ORTHO AND THEY SAID IT WAS OK TO STOP PT. STATES SHE KNOWS ALL OF HER EX'S AND SHE WOULD LIKE TO CONTINUE ON HER OWN AT THIS POINT. Objective/Function: PATIENT WAS SEEN TODAY FOR RE-ASSESSMENT OF PROGRESS TOWARD THE SET PT GOALS AND THE NEED FOR FURTHER PHYSICAL THERAPY VS READINESS FOR DISCHARGE. PATIENT IS MAKING GOOD PROGRESS TOWARD PT GOALS AND WOULD BE A GOOD CANDIDATE TO CONTINUE FORMAL PT TO CONTINUE WORKING ON ROM AND PROGRESS TO STRENGTHENING BUT PATIENT PREFERS HOME INST TO PROGRESS ON HER OWN. PROVIDED YTB AND WRITTEN INSTRUCTIONS FOR YTB IR, ER AND MR'S TOLERATED STARTING IN 2 WEEKS OR SO. PATIENT DEMONSTRATED AND COMMUNICATED A GOOD UNDERSTANDING. UPON EXAM TODAY: AROM LEFT SHLD IN SITTING: FLEX 135 DEG, ABD 155 DEG. PROM L SHLD IN SUPINE: FLEX 139 DEG, ABD 160 DEG, IR/ER = 80/65 DEG WITH APPROX 70 DEG ABD. L SHLD STRENGTH IS GROSSLY 3-/5 AND SHE IS NOT READY FOR THERABAND EX'S YET BUT IS DOING ISOMETRICS WITH HER HEP. Plan Plan: D/C TO HEP REQUESTED BY PATENT. Goals Goal 1:: DECREASE C/O L UE SYMPTOMS Goal Time Frame: 6-8 Weeks Goal Progress: Progressing Goal 2:: INCREASE FUNCTIONAL ROM OF L UE Goal Time Frame: 6-8 Weeks Goal Progress: Progressing Goal 3:: INCREASE FUNCTIONAL STRENGTH OF LUE Goal Time Frame: 6-8 Weeks Goal Progress: Progressing Goal 4:: PATIENT WILL BE INDEP WITH A HEP FOR CONTINUED IMPROVEMENT ONCE FORMAL PHYSICAL THERPAY CONCLUDES. Goal Time Frame: 6-8 Weeks Goal Progress: Progressing Anticipated Interventions Patient/Client Instruction: Educate patient on: Condition, Plan of Care, Risk Factors, Benefits of Fitness Program For the Purpose of:: To improve self management Therapeutic Exercise to Include: Strength training, Body mechanics, Postural training, Flexibilty training, Neuromotor development, Passive ROM, Active ROM, Scapular Strength/Stabilization For the Purpose of:: To decrease pain, To increase ROM, To improve muscle performance and motor function, To improve ability to perform ADL's, To increase tolerance to activity/condition/position, To improve ability of physical actions for home/community/work/leisure, To decrease soft tissue restriction, To improve ability to perform tasks related to life management Cryotherapy (ice pack, ice massage): Yes Thermo therapy (hot pack): Yes For the Purpose of:: To decrease pain, To improve nutrient delivery to tissue Please do not hesitate to contact me at [phone] by phone or if you have questions or concerns regarding this new plan of care! Sincerely, Tamiko Her, PT, Cert MDT
--- NOTE | 2020-11-30 12:00 | HP.PTDCSUM ---
It has been my pleasure to treat TANGELA BENÍTEZ referred by JOSE Roper, with the diagnosis of LEFT PROXIMAL HUMERUS FRACTURE for a total of 8 visit(s). Discharge Date: Please see the following information for a summary of their discharge status. Subjective: PATIENT REPORTS SHE IS DOING SO MUCH BETTER. REPORTS SHE HAD A FOLLOW UP BRISSA'T WITH ORTHO AND THEY SAID IT WAS OK TO STOP PT. STATES SHE KNOWS ALL OF HER EX'S AND SHE WOULD LIKE TO CONTINUE ON HER OWN AT THIS POINT. L SHOULDER Pain Intensity (Out of 10): 1 RIGHT WRIST Pain Intensity (Out of 10): 3 % Improvement: 80 Objective/Function: PATIENT WAS SEEN TODAY FOR RE-ASSESSMENT OF PROGRESS TOWARD THE SET PT GOALS AND THE NEED FOR FURTHER PHYSICAL THERAPY VS READINESS FOR DISCHARGE. PATIENT IS MAKING GOOD PROGRESS TOWARD PT GOALS AND WOULD BE A GOOD CANDIDATE TO CONTINUE FORMAL PT TO CONTINUE WORKING ON ROM AND PROGRESS TO STRENGTHENING BUT PATIENT PREFERS HOME INST TO PROGRESS ON HER OWN. PROVIDED YTB AND WRITTEN INSTRUCTIONS FOR YTB IR, ER AND MR'S TOLERATED STARTING IN 2 WEEKS OR SO. PATIENT DEMONSTRATED AND COMMUNICATED A GOOD UNDERSTANDING. UPON EXAM TODAY: AROM LEFT SHLD IN SITTING: FLEX 135 DEG, ABD 155 DEG. PROM L SHLD IN SUPINE: FLEX 139 DEG, ABD 160 DEG, IR/ER = 80/65 DEG WITH APPROX 70 DEG ABD. L SHLD STRENGTH IS GROSSLY 3-/5 AND SHE IS NOT READY FOR THERABAND EX'S YET BUT IS DOING ISOMETRICS WITH HER HEP. Goal 1:: DECREASE C/O L UE SYMPTOMS Goal Progress: Progressing Goal 2:: INCREASE FUNCTIONAL ROM OF L UE Goal Progress: Progressing Goal 3:: INCREASE FUNCTIONAL STRENGTH OF LUE Goal Progress: Progressing Goal 4:: PATIENT WILL BE INDEP WITH A HEP FOR CONTINUED IMPROVEMENT ONCE FORMAL PHYSICAL THERPAY CONCLUDES. Goal Progress: Progressing Plan: D/C TO HEP REQUESTED BY PATENT. If there are questions or concerns regarding this patient's physical therapy, please feel free to call me at [phone]. Thank you for the referral of this patient. Sincerely, Tamiko Her, PT, Cert MDT
== END 2020-11-30 13:40 | disposition home or self-care (01) ==
LOC: PT 11:00
PROVIDERS: PCP Internal Medicine; Referring Provider Physician Assistant; Visit Provider Physician Assistant
DX: S42.202D Unspecified fracture of upper end of left humerus, subsequent encounter for fracture with routine healing (principal)
CPT/HCPCS: 97110; 97140; 97162; 97164; 97530

== ENCOUNTER 2021-01-23 17:48 | Emergency (ER) | payer MEDICARE, OTHER, SELFPAY ==
[2021-01-23 17:49] VITALS: PULSE 176; RESP 19; TEMP 36.6; O2SAT 93; BMI 30.2
--- NOTE | 2021-01-23 17:51 | EKG12_ITS ---
Test Reason : CP Blood Pressure : / mmHG Vent. Rate : 174 BPM Atrial Rate : 174 BPM P-R Int : 000 ms QRS Dur : 084 ms QT Int : 278 ms P-R-T Axes : 000 -51 006 degrees QTc Int : 473 ms Supraventricular tachycardia Left axis deviation Inferior infarct , age undetermined Anterolateral infarct , age undetermined Abnormal ECG Confirmed by TE CONNELL, DAY ([id number]), city editor ANY RAMIREZ ([id number]) on 01/25/2021 11:52:02 AM Referred By: ANASTASIIA Confirmed By:DAY TIWARI MD
[2021-01-23] MEDS: Adenosine 6 MG/2 ML Syringe IV (17:57)
[2021-01-23 18:10] VITALS: O2SAT 97
--- NOTE | 2021-01-23 18:10 | EKG12_ITS ---
Test Reason : REPEAT Blood Pressure : / mmHG Vent. Rate : 093 BPM Atrial Rate : 093 BPM P-R Int : 212 ms QRS Dur : 092 ms QT Int : 366 ms P-R-T Axes : 052 -46 029 degrees QTc Int : 455 ms Sinus rhythm with 1st degree A-V block Left anterior fascicular block Poor R wave progression Anterior VA, age undetermined, cannot be excluded Abnormal ECG Confirmed by TE CONNELL, DAY ([id number]), photograph editor ANY RAMIREZ ([id number]) on 01/25/2021 11:49:30 AM Referred By: CHANA Confirmed By:DAY TIWARI MD
--- NOTE | 2021-01-23 18:11 | ED.DCSUM_ITS ---
History of Present Illness Chief Complaint: Chest Pain Informant: Patient Onset: Today Maximum Severity: Mild Narrative: The patient presents with a narrow complex rapid heart rate on the monitor began today, she was sitting down by an hour ago and this all began no fever no cough did not exert herself she has had episodes of rapid heartbeat palpitations in the past she is never seen her physicians for it. This time it persisted and she came in for evaluation. She has no known history of A. fib V. 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 Rhett Degroot, recalls having an echogram and stress test that were negative no fever no cough no chest pain no coronavirus exposures bowel bladder habits normal On arrival she is in narrow complex tachycardia 170 vital signs otherwise unremarkable resting company in the bed Past Medical History - Allergies and Home Meds Allergies/Adverse Reactions: Allergies latex Allergy (Verified 01/23/21 17:54) COUGHING AND SORE THROAT Primary Care Physician: Carmel Goncalves MD [Primary Care Provider] - Past Medical History: - Smoking Status: Never smoker Review of Systems ROS: - Includes as above General: Denies: Chills, Fever, Sweats Eyes: Denies: Visual changes - bilaterally, Diplopia ENT: Denies: Rhinorrhea, Sore throat Cardiovascular: Reports: Palpitations. Denies: Chest pain Respiratory: Denies: Dyspnea, Cough, Dyspnea on exertion Gastrointestinal: Denies: Abdominal pain, Nausea, Vomiting, Diarrhea, Melena, Hematochezia Genitourinary: Denies: Dysuria, Hematuria, Frequency Musculoskeletal: Denies: Back pain, Extremity Pain Skin: Denies: Rash, Wounds Neurological: Denies: Headache, Weakness, Numbness Physical Exam Vital Signs/Narrative: Vital Signs Temp Pulse Resp Pulse Ox 01/23/21 17:49 97.8 F 176 H 19 H 93 General: Well nourished, Well developed, No Acute Distress Head: Normocephalic, Atraumatic Eyes: Perrl, EOMI ENT: Moist mucous membranes, No rhinorrhea Neck: Supple, Nontender Cardiovascular: Regular rate, Regular rhythm, No murmurs, Tachycardia Respiratory: No distress, CTA bilaterally, Chest nontender Abdomen: Soft, Nontender, Nondistended, Normal bowel sounds Back: Nontender, Normal Inspection Extremities: Nontender, No edema Skin: Normal color, No rash Neurological: Alert, Oriented x3, Cranial nerves II-XII grossly intact, Normal Strength, Normal Sensation Psychological: Normal affect, Normal Mood Diagnostic/Tx/Re-eval - Medical Decision Making Patient is a narrow complex tachycardia initial EKG shows narrow complex tach ycardia rate is about 170, she is hemodynamically stable she was started on hyperoxygenation protocol, IV established and she was given Adenocard 6 mg IV, the rate broke to a sinus rhythm repeat EKG 90 sinus no acute injury Patient does have a history of hypothyroidism and includes as above given everything noted ED evaluation Patient's ED screening evaluation generally unremarkable see labs creatinine 1.4, chest x-ray shows chronic change 1 view to my review nothing acute radiology generally concurs, She is remained in sinus rhythm here no distress discussed all the above with her discussed inpatient versus outpatient management she is feeling better she understands need to follow with her regulatory affairs specialist for this condition and return for change in symptoms and she will do so and return needed Home stable Impression final SVT resolved with Adenocard treatment ED Disposition - Plan for ED Patient: Diagnosis: SVT (supraventricular tachycardia) Instructions: ED About Arrhythmias Referrals: Carmel Goncalves MD [Primary Care Provider] - Additional Instructions: Rest follow-up with your primary care physician or regulatory affairs specialist in a few days return for change in symptoms
[2021-01-23] MEDS: Aspirin 81 MG TAB.CHEW 324 MG PO (18:18)
--- NOTE | 2021-01-23 18:19 | RAD_ITS ---
STUDY: X-RAY CHEST REASON FOR EXAM: Female, 70 years old. chest pain TECHNIQUE: AP portable COMPARISON: 01/08/2019 FINDINGS: Less than optimal inspiratory effort is seen however is mild left basilar atelectasis. There is no demonstrated pleural abnormality. Normal size heart. Normal mediastinum and craig. Normal visualized pulmonary arteries. Normal visualized aortic arch and descending thoracic aorta. Dorsal spine and shoulders demonstrate degenerative change. Normal visualized ribs, clavicles, and shoulders. Large hiatal hernia is noted. There is no demonstrated abnormality of the visualized soft tissue structures of the upper abdomen. RAD/Chest 1 View (Portable) IMPRESSION: Mild left lower lobe atelectasis. Large hiatal hernia. Electronically Signed: Fady Ugalde MD at 19:05 EDT , Service support ,
[2021-01-23 18:29] LABS: Absolute Lymphocyte Count 2.25 X10^3/uL (0.83-4.51); Absolute Neutrophil Count 6.3 X10^3/uL (2.0-7.7); Basophil# 0.07 X10^3/uL; Basophil% 0.7 % (0-1); Eosinophil# 0.15 X10^3/uL; Eosinophils% 1.6 % (0-5); Hematocrit 42.5 % (37-47); Hemoglobin 13.6 g/dL (12.0-15.0); Lymphocyte # 2.25 X10^3/ul (0.83-4.51); Lymphocyte % 23.5 % (19-41); Mean Corpuscular Hgb 29.9 pg (27.0-32.0); Mean Corpuscular Volume 93.4 fL (81-99); Mean Platelet Vol. 9.5 fl (6.2-12.0); Monocyte# 0.82 X10^3/uL; Monocyte% 8.6 % (0-10); NRBC Flagged by Analyzer 0 % (0-5); Neutrophil # 6.25 X10^3/uL (2.7-7.7); Neutrophil % 65.3 % (47-70); Platelet Count 444 K/mm3 (150-450); RBC Distribution Width CV 13.1 % (11.6-14.6); RBC Distribution Width SD 44.9 fl (35.1-43.9); Red Blood Count 4.55 M/mm3 (4.2-5.4); White Blood Count 9.6 K/mm3 (4.4-11.0)
[2021-01-23 18:42] LABS: Anion Gap 6 (5-15); BUN 19 mg/dL (7-18); BUN/Creat Ratio 13.3 RATIO (10-20); Calcium,Total 9.3 mg/dL (8.5-10.1); Chloride 100 mmol/L (98-107); Creatinine, Serum 1.43 mg/dL (0.55-1.02); EST Glomerular Filtration Rate 39 mL/min (>60); Est Glom Filt Rate - Afr Amer 47 mL/min (>60); Estimated Creatinine Clearance 26.29 ml/min; Glucose 120 mg/dL (74-106); Sodium Level 133 mmol/L (136-145)
[2021-01-23 18:48] VITALS: BP 130/78; PULSE 86; RESP 14; O2SAT 99
[2021-01-23 19:09] VITALS: BP 127/82; PULSE 81; RESP 14; O2SAT 100
== END 2021-01-23 19:20 | disposition home or self-care (01) ==
PROVIDERS: Emergency Provider Emergency Medicine; PCP Internal Medicine
DX: I47.1 Supraventricular tachycardia (principal); E03.9 Hypothyroidism, unspecified; Z79.899 Other long term (current) drug therapy
CPT/HCPCS: 71045; 80048; 84484; 85025; 93005; 96374; 99285; J7030; A4216; J0153

== ENCOUNTER → 2021-02-14 06:31 | Outpatient (CLI) | payer MEDICARE, OTHER, SELFPAY ==
[2021-02-06 10:35] VITALS: BMI 29.7
--- NOTE | 2021-02-14 06:32 | MRI_ITS ---
STUDY: MRI LUMBAR SPINE WITHOUT CONTRAST REASON FOR EXAM: Female, 70 years old. Pain -- order changed d/t GFR level; hx prior surgery 2019, left leg pain TECHNIQUE: Standardized fat and water weighted pulse sequences were obtained in the sagittal and axial planes. COMPARISON: 03/04/2017. FINDINGS: T10-T11: (Sagittal only). Normal endplates. Normal disc height and morphology. Normal central canal and bilateral intervertebral neural foramina. T11-T12: (Sagittal only). Mild central compression deformity of the T11 inferior endplate. Moderate old anterior wedge compression fracture of the upper T12 vertebral body. Normal central canal and bilateral intervertebral neural foramina. This level is unchanged. T12-L1: (Sagittal only). Normal endplates. Normal disc height and morphology. Normal central canal and bilateral intervertebral neural foramina. Normal lumbar lordosis. Moderate levoscoliosis of the lumbar spine is unchanged. Normal conus medullaris that terminates at the mid L1 vertebral body level. L1-2: Normal endplates. Normal disc height, hydration and morphology. Normal bilateral facet joints. Normal central canal and bilateral lateral recesses. Normal bilateral intervertebral neural foramina. L2-3: Normal endplates. Normal disc height, hydration and morphology. Normal bilateral facet joints. Normal central canal and bilateral lateral recesses. Normal bilateral intervertebral neural foramina. L3-4: Normal endplates. Normal disc height, hydration and morphology. Normal bilateral facet joints. Normal central canal and bilateral lateral recesses. Normal bilateral intervertebral neural foramina. L4-5: Moderately pronounced disc space height narrowing. Mild left lateral degenerative subluxation of L4 on L5. MODIC type I and type II degenerative changes of the vertebral marrow underneath the vertebral endplates. Normal central canal. Postsurgical absence of the left L4 lamina. Normal bilateral lateral recesses. Mild to moderate bilateral degenerative facet arthropathy. Moderate stenosis of the right intervertebral neural foramen is unchanged. Normal left intervertebral neural foramen. L5-S1: Normal endplates. Normal disc height and morphology. Normal central canal and bilateral lateral recesses. Moderate left degenerative facet arthropathy. Mild right degenerative facet arthropathy. Moderately pronounced stenosis of the left intervertebral neural foramen is unchanged. Normal right intervertebral neural foramen. Normal visualized sacral ala. Normal visualized paraspinous soft tissue structures. MRI/Spine Lumbar (Routine) IMPRESSION: 1. Moderately pronounced stenosis of the left L5-S1 intervertebral neural foramen but unchanged when compared to 03/04/2017. 2. Moderate stenosis of the right L4-5 intervertebral neural foramen is unchanged along with mild left lateral degenerative subluxation of L4 on L5. 3. No MRI evidence of lumbar extruded disc fragment. 4. Moderate old anterior wedge compression fracture of the upper T12 vertebral body is unchanged. Electronically Signed: Brayden Thompson MD at 16:20 EDT , Service support ,
== END ==
PROVIDERS: PCP Internal Medicine; Referring Provider Orthopaedic Surgery; Visit Provider Orthopaedic Surgery
DX: M51.16 Intervertebral disc disorders with radiculopathy, lumbar region (principal)
CPT/HCPCS: 72148

== ENCOUNTER 2021-04-13 20:38 | Emergency (ER) | payer MEDICARE, OTHER, SELFPAY ==
[2021-03-06 11:34] VITALS: BMI 29.7
[2021-04-13 20:39] VITALS: BP 145/76; PULSE 98; RESP 16; TEMP 36.4; BMI 30.2
--- NOTE | 2021-04-13 20:55 | CT_ITS ---
STUDY: CT ABDOMEN AND PELVIS WITH CONTRAST REASON FOR EXAM: Female, 70 years old. Abdominal pain -- IV PO Contrast RADIATION DOSAGE (If Supplied By Facility): CTDIvol = ( 21.08 ) mGy, DLP = ( 1530.91 ) mGycm TECHNIQUE: Transaxial images were obtained from the dome of the diaphragm to the symphysis pubis with oral contrast. Oral and amp; IV Gastrografin and amp; 100mL Isovue-300 was administered. Sagittal and coronal images were reconstructed. Individualized dose optimization techniques were used for this CT. COMPARISON: 01/08/2019. FINDINGS: There is atelectasis/scarring within the lungs. 3.5 mm RIGHT lower lobe pulmonary nodule. The visualized portions of the heart are within normal limits. Normal liver. Normal gallbladder and extrahepatic biliary system. Normal spleen. Normal pancreas. Normal bilateral adrenal glands. LEFT kidney is slightly atrophic. There is multiple RIGHT parapelvic cysts measuring up to 2.5 cm. Subcentimeter low-attenuation structures within the kidneys are too small to characterize by CT material however statistically likely represent cysts. There is no hydronephrosis identified. Moderate to large hiatal hernia. There is some mild gastric wall thickening which may represent underdistention versus gastritis. Normal small intestine. There are multiple colonic diverticula consistent with diverticulosis. There is non-visualization of the appendix. Normal abdominal aorta. Normal inferior vena cava. Normal retroperitoneum. Normal urinary bladder. There is absence of the uterus consistent with a prior hysterectomy. There is a small umbilical hernia containing fat. There are diffuse degenerative changes of the visualized lumbar spine. Similar appearance to the T10, T12 and L2 compression fracture deformity. There is a new L3 compression fracture deformity. Extensive scoliotic curvature to the spine. LEFT hip arthroplasty causes streak artifact in the region. CT/Abdomen/Pelvis WITH Contrast IMPRESSION: Moderate to large hiatal hernia. RIGHT lower lobe pulmonary nodule minimally increased in size from prior study. LEFT lower lobe atelectasis/scarring. Recommend a follow-up CT scan of the chest in 6-12 months. Multiple RIGHT parapelvic cyst. Moderate stool in the colon. No CT evidence for acute diverticulitis or appendicitis. Status post hysterectomy. L3 vertebral body compression fracture deformity. Acute to subacute most likely. This can be further evaluated with MRI. Additional stable appearing compression fracture (and scoliotic curvature to the spine. Mild bilateral hydroureter. There is no significant hydronephrosis. Other findings as above. Electronically Signed: Osmar Salazar MD at 23:22 EDT Tel , Service support ,
--- NOTE | 2021-04-13 20:56 | ED.VIS.GI ---
HPI HPI - GI History of Present Illness Chief Complaint: Abd Pain Informant: patient Abdominal Pain/Flank Pain Onset: Days (2) Context: Gradual Onset Timing: Continuous Quality: Sharp Location: RLQ and Right Flank Worsened by: Movement Relieved by: Nothing Nausea/Vomiting/Emesis GI Symptom: Positive for Nausea; Negative for Vomiting Diarrhea/Melena/Hematochezia GI Symptom: Positive for Diarrhea; Negative for Melena and Hematochezia Associated Symptoms Associated Symptoms: Negative for Dysuria, Frequency and Hematuria Narrative Narrative: Patient presents with right flank pain that has been getting worse over the past 2 days. Patient states the pain is been constant. Patient describes the pain as sharp. Patient states the pain is over the right flank and radiates into her right lower quadrant and into her right groin. Patient admits to some nausea and vomiting. Patient denies any hematemesis or coffee-ground emesis. Patient admits to some diarrhea but denies any melena or hematochezia. Patient denies any dysuria, hematuria, or or frequency. Patient states her pain is worse with movement. [facility] Medical History Depression Essential (primary) hypertension History of cataract History of gastroesophageal reflux (GERD) Hyperlipidemia Hypothyroidism Osteoporosis Paroxysmal SVT (supraventricular tachycardia) Sacro-iliac pain Home Medications bupropion HCl 150 mg PO DAILY 09/24/16 [History Last Taken 01/08/19 150 MG] citalopram 40 mg PO QHS 09/24/16 [History Last Taken 01/08/19 40 MG] levothyroxine 50 mcg PO DAILY 09/24/16 [History Last Taken 01/08/19 50 MCG] pantoprazole 40 mg PO QHS 09/24/16 [History Last Taken 01/08/19 40 MG] alprazolam 0.5 mg PO QHS 12/09/16 [History Last Taken 01/08/19 0.5 MG] acetaminophen 1,300 mg PO PRN PRN 09/28/18 [History Last Taken 01/08/19 1300 MG] buspirone 15 mg PO DAILY 09/28/18 [History Last Taken 01/08/19 15 MG] meloxicam 15 mg PO DAILY 09/28/18 [History Last Taken 01/08/19 15 MG] tizanidine 4 mg PO QHS 09/28/18 [History Last Taken 01/08/19 4 MG] gabapentin 100 mg capsule 100 mg PO QHS 10/03/20 [History Last Taken Unknown] tramadol 50 mg tablet See Rx Instructions PO Q6H PRN #24 tab 11/12/20 [Rx Last Taken Unknown] turmeric 400 mg capsule 400 mg PO DAILY cap 11/26/20 [History Last Taken Unknown] biotin 5 mg capsule 5 mg PO DAILY 01/31/21 [History Last Taken Unknown] cholecalciferol (vitamin D3) 125 mcg (5,000 unit) tablet 125 mcg PO DAILY 01/31/21 [History Last Taken Unknown] fexofenadine 180 mg tablet 180 mg PO DAILY 01/31/21 [History Last Taken Unknown] magnesium 250 mg tablet 250 mg PO DAILY 01/31/21 [History Last Taken Unknown] metoprolol succinate 25 mg tablet,extended release 24 hr 25 mg PO DAILY #30 tablet 01/31/21 [Rx Last Taken Unknown] multivit with xnzwhdmk-qevk-IO-lutein 8 mg iron-400 mcg-300 mcg tablet 1 tablet PO DAILY 01/31/21 [History Last Taken Unknown] mv-min-vit C-ascorb Fv-Ngy-Eqt-herb #124 333 mg-1.7 mg chewable tablet 1 tablet PO DAILY 01/31/21 [History Last Taken Unknown] metoprolol succinate 25 mg tablet,extended release 24 hr 12.5 mg PO QPM tab 03/16/21 [History Last Taken Unknown] Allergy/AdvReac Type Severity Reaction Status Date / Time latex Allergy COUGHING Verified 04/13/21 20:39 AND SORE THROAT Family History Father , Age 43 Hodgkins disease Sister Osteoporosis Mother Myocardial infarction Other Hypertension Surgical History History of appendectomy History of bladder suspension procedure History of bunionectomy History of cataract extraction History of hysterectomy History of lumbar laminectomy (~09/2019) History of right oophorectomy History of total left hip arthroplasty Social History Smoking Status: Never smoker alcohol intake: current alcohol intake frequency: a few times a month Alcohol type: wine substance use type: does not use caffeine: Yes Type: coffee Number of servings: 2 what type of physical activity do you participate in: none ROS ROS ED Constitutional Constitutional ED: Denies chills or fever(s) Eyes Eyes: Denies blurry vision or change in vision ENT ENT ED: Denies rhinorrhea or sore throat Cardiovascular Cardiovascular: Denies chest pain or palpitations Respiratory/Chest Respiratory/Chest: Denies cough or dyspnea Gastrointestinal Gastrointestinal: Denies nausea or vomiting Genitourinary Genitourinary ED: Denies dysuria or hematuria Musculoskeletal Musculoskeletal: Reports back pain; Denies neck pain Integumentary Denies abscess or rash Neurologic Neurologic: Denies headache(s) or weakness Allergic/Immunologic Allergic/Immunologic ED: Denies mouth swelling or urticaria EXAM Physical Exam Const Vital Signs: 04/13/21 20:39 04/13/21 23:15 Temperature 97.6 F L Temperature Source Temporal Pulse Rate 98 89 Respiratory Rate 16 15 Blood Pressure 145/76 H 158/84 H Blood Pressure Mean 99 108 Pulse Ox 93 Oxygen Delivery Method Room Air Positive well nourished and well developed General Appearance ED: well developed HEENT Reports moist mucous membranes Neck supple and no JVD Resp normal respiratory effort and clear to auscultation bilaterally Cardio regular rate, regular rhythm and no murmurs GI normal to inspection, nondistended, normoactive bowel sounds and non-distended Palpation: soft and tender RLQ; Negative for guarding or rebound tenderness present Back/Spine General Back: CVA tenderness right Extremity normal to inspection General Extremety ED: Negative for edema or tenderness General Extremity: Negative for edema Neuro oriented x3, CN's II-XII intact bilaterally and no sensory deficits noted Sensorium / Orientation: alert Motor Exam: strength 5/5 throughout Psych mental status grossly normal Skin no rashes or lesions noted MDM MDM MDM Narrative Medical decision making narrative: Patient was given IV fluids, morphine, and Zofran. CBC was within normal limits. Comprehensive metabolic profile was essentially within normal limits. Urinalysis does not show any evidence of urinary tract infection. CT scan of the abdomen and pelvis was obtained. There is mild bilateral hydronephrosis. There is a questionable 5 mm calculus of the right distal ureter. There is a T3 compression fracture of indeterminate age that may be new compared to previous study. Patient states she did fall several weeks ago. This was interpreted by the radiologist and reviewed by myself. Patient is feeling better on reevaluation. Patient was advised of her findings. Patient was given a prescription for [place]. Patient was instructed to drink plenty of fluids. Patient was instructed to follow-up with her primary care physician in 5 to 7 days. Patient understood and was agreeable with the plan. All questions were answered. Lab Data Attestation: I reviewed the patient's lab results. Labs: Laboratory Results - last 24 hr 04/13/21 04/13/21 04/13/21 21:15 21:15 21:30 WBC 8.0 RBC 4.05 L Hgb 12.2 Hct 38.0 MCV 93.8 MCH 30.1 MCHC 32.1 RDW Std Deviation 47.2 H RDW Coeff of Garret 13.5 Plt Count 450 MPV 9.0 Immature Gran % (Auto) 0.400 Neut % (Auto) 66.8 Lymph % (Auto) 23.2 Real % (Auto) 7.0 Eos % (Auto) 2.0 Baso % (Auto) 0.6 Absolute Neuts (auto) 5.3 Absolute Lymphs (auto) 1.85 Nucleated RBC % 0 Sodium 138 Potassium 4.1 Chloride 105 Carbon Dioxide 26.0 Anion Gap 7 BUN 15 Creatinine 1.04 H Estim Creat Clear Calc 36.15 Est GFR (MDRD) Af Amer 67 Est GFR (MDRD) Non-Af 56 L BUN/Creatinine Ratio 14.4 Glucose 94 Calcium 8.9 Total Bilirubin 0.30 AST 12 L ALT 18 Alkaline Phosphatase 93 Total Protein 6.7 Albumin 3.5 Globulin 3.2 Albumin/Globulin Ratio 1.1 Lipase 114 Urine Color Yellow Urine Clarity Clear Urine pH 6.0 Ur Specific [place] 1.015 Urine Protein Negative Urine Glucose (UA) Normal Urine Ketones Negative Urine Occult Blood 10 H Urine Nitrite Negative Urine Bilirubin Negative Urine Urobilinogen Normal Ur Leukocyte Esterase Negative Urine RBC 0 SEEN Urine WBC 0 SEEN Ur Squamous Epith Cells 0 SEEN Urine Bacteria 0 SEEN Urine Mucus 0 SEEN Radiography Diagnostic Testing: Radiology Impression Abdomen/Pelvis CT 04/13/21 20:55 IMPRESSION: Moderate to large hiatal hernia. RIGHT lower lobe pulmonary nodule minimally increased in size from prior study. LEFT lower lobe atelectasis/scarring. Recommend a follow-up CT scan of the chest in 6-12 months. Multiple RIGHT parapelvic cyst. Moderate stool in the colon. No CT evidence for acute diverticulitis or appendicitis. Status post hysterectomy. L3 vertebral body compression fracture deformity. Acute to subacute most likely. This can be further evaluated with MRI. Additional stable appearing compression fracture (and scoliotic curvature to the spine. Mild bilateral hydroureter. There is no significant hydronephrosis. Other findings as above. Electronically Signed: Osmar Salazar MD at 23:22 EDT Tel , Service support , Discharge Plan Triage Chief Complaint: Abd Pain ED Provider: Juan Messer Dx/Rx/DC Orders Clinical Impression: Acute right flank pain Instructions: ED Flank Pain, Uncertain Cause, ED Kidney Stone w/ Colic Prescriptions: No Action gabapentin 100 mg capsule 100 mg PO QHS RF: 0 tramadol 50 mg tablet See Rx Instructions PO Q6H PRN (Reason: pain) Qty: 24 RF: 0 turmeric 400 mg capsule 400 mg PO DAILY RF: 0 cholecalciferol (vitamin D3) 125 mcg (5,000 unit) tablet 125 mcg PO DAILY RF: 0 magnesium 250 mg tablet 250 mg PO DAILY RF: 0 biotin 5 mg capsule 5 mg PO DAILY RF: 0 Centrum Silver Women 8 mg iron-400 mcg-300 mcg tablet 1 tablet PO DAILY RF: 0 fexofenadine [Alvina Allergy] 180 mg tablet 180 mg PO DAILY RF: 0 Airborne (ascorbate sodium) 333-1.7 mg tablet,chewable 1 tablet PO DAILY RF: 0 metoprolol succinate 25 mg tablet extended release 24 hr 25 mg PO DAILY Qty: 30 RF: 10 metoprolol succinate 25 mg tablet extended release 24 hr 12.5 mg PO QPM RF: 0 citalopram 40 MG tablet 40 mg PO QHS RF: 0 levothyroxine 50 MCG tablet 50 mcg PO DAILY RF: 0 pantoprazole 40 MG tablet 40 mg PO QHS RF: 0 bupropion HCl 150 MG tablet extended release 12 hr 150 mg PO DAILY RF: 0 alprazolam 0.5 MG tablet 0.5 mg PO QHS RF: 0 tizanidine 4 MG tablet 4 mg PO QHS RF: 0 meloxicam 15 MG tablet 15 mg PO DAILY RF: 0 acetaminophen 650 MG tablet extended release 1,300 mg PO PRN PRN (Reason: Pain) RF: 0 buspirone 15 MG tablet 15 mg PO DAILY RF: 0 Primary Care Provider: Carmel Goncalves Referrals: Tara Guzman MD [STAFF PHYSICIAN] - 5-7 Days Carmel Goncalves MD [Primary Care Provider] - 3-5 Days Disposition Disposition: Home, Self Care Discharge Date/Time: 04/14/21 02:02
[2021-04-13] MEDS: Ondansetron 4 MG/2 ML Vial IV (21:09)
[2021-04-13] MEDS: Morphine 4 MG/ML Syringe IV (21:10)
[2021-04-13] MEDS: 0.9% Normal Saline 1,000 ML 1000 ML IV (21:12)
[2021-04-13 21:33] LABS: Absolute Lymphocyte Count 1.85 X10^3/uL (0.83-4.51); Absolute Neutrophil Count 5.3 X10^3/uL (2.0-7.7); Basophil# 0.05 X10^3/uL; Basophil% 0.6 % (0-1); Eosinophil# 0.16 X10^3/uL; Hemoglobin 12.2 g/dL (12.0-15.0); Lymphocyte # 1.85 X10^3/ul (0.83-4.51); Lymphocyte % 23.2 % (19-41); Mean Corp Hgb Conc 32.1 g/dL (32-36); Mean Corpuscular Hgb 30.1 pg (27.0-32.0); Mean Corpuscular Volume 93.8 fL (81-99); Monocyte# 0.56 X10^3/uL; NRBC Flagged by Analyzer 0 % (0-5); Neutrophil # 5.34 X10^3/uL (2.7-7.7); Neutrophil % 66.8 % (47-70); Platelet Count 450 K/mm3 (150-450); RBC Distribution Width CV 13.5 % (11.6-14.6); RBC Distribution Width SD 47.2 fl (35.1-43.9); Red Blood Count 4.05 M/mm3 (4.2-5.4)
[2021-04-13 21:36] LABS: Bacteria 0 SEEN /hpf (None Seen); Mucous, Urine 0 SEEN /hpf (<or=2+); Red Blood Cells-Urine 0 SEEN /hpf (0-5); Squamous Epithelial Cells - UA 0 SEEN /hpf (5-10); White Blood Cells 0 SEEN /hpf (0-5)
[2021-04-13 21:45] LABS: Color, Urine Yellow (Yellow); Glucose, Dipstick Normal (Normal); Ketone-Dipstick Negative (Negative); Leukocyte Esterase-Dipstick Negative /ul (Negative); Nitrite-Dipstick Negative (Negative); Occult Blood-Urine 10 /ul (Negative); Protein-Dipstick Negative (Negative); Specific Gravity, Urine 1.015 (1.002-1.030); Urine Bilirubin Dipstick Negative (Negative); Urine Clarity Clear (Clear); Urine Urobilinogen Normal (Normal)
[2021-04-13 21:57] LABS: ALB/GLOB Ratio 1.1 RATIO (0.9-2.4); AST(SGOT) 12 U/L (15-37); Alanine Aminotransfer ALT/SGPT 18 U/L (13-56); Albumin, Serum 3.5 g/dL (3.2-5.0); Alkaline Phosphatase 93 U/L (45-117); Anion Gap 7 (5-15); BUN 15 mg/dL (7-18); BUN/Creat Ratio 14.4 RATIO (10-20); Calcium,Total 8.9 mg/dL (8.5-10.1); Chloride 105 mmol/L (98-107); Creatinine, Serum 1.04 mg/dL (0.55-1.02); EST Glomerular Filtration Rate 56 mL/min (>60); Est Glom Filt Rate - Afr Amer 67 mL/min (>60); Estimated Creatinine Clearance 36.15 ml/min; Globulin 3.2 g/dL (2.2-4.2); Glucose 94 mg/dL (74-106); Lipase 114 U/L (73-393); Potassium 4.1 mmol/L (3.5-5.1); Protein, Total 6.7 g/dL (6.4-8.2); Sodium Level 138 mmol/L (136-145)
[2021-04-13 23:15] VITALS: BP 158/84; PULSE 89; RESP 15; O2SAT 93
--- NOTE | 2021-04-14 02:02 | ED.RN ---
PT LEFT PRIOR TO RECEIVING D/C INSTRUCTIONS. PER CHUCKIE Spivey RN, IV WAS REMOVED
== END 2021-04-14 02:02 | disposition home or self-care (01) ==
PROVIDERS: Emergency Provider Emergency Medicine; PCP Internal Medicine
DX: R10.9 Unspecified abdominal pain (principal); M48.54XA Collapsed vertebra, not elsewhere classified, thoracic region, initial encounter for fracture; M48.56XA Collapsed vertebra, not elsewhere classified, lumbar region, initial encounter for fracture; R11.2 Nausea with vomiting, unspecified; I10 Essential (primary) hypertension; E78.5 Hyperlipidemia, unspecified; E03.9 Hypothyroidism, unspecified; I47.1 Supraventricular tachycardia; K21.9 Gastro-esophageal reflux disease without esophagitis; M81.0 Age-related osteoporosis without current pathological fracture; F32.9 Major depressive disorder, single episode, unspecified; Z79.890 Hormone replacement therapy; Z79.1 Long term (current) use of non-steroidal anti-inflammatories (NSAID); Z79.899 Other long term (current) drug therapy
CPT/HCPCS: 74177; 80053; 81001; 83690; 85025; 96361; 96374; 96375; 99284; J7030; Q9967; A4216; J2405

== ENCOUNTER → 2021-04-25 | Outpatient (CLI) | payer MEDICARE, OTHER, SELFPAY ==
[2021-04-22 14:53] VITALS: BMI 30.2
--- NOTE | 2021-04-25 18:05 | BONBX_PTH ---
PATIENT: TANGELA BENÍTEZ [facility] U#:[id number] AGE/SX: 70/F ROOM: RE04/25/[address]: Dr. Nathan Álvarez MD : 1950 BED: DIS: 04/25/2021 SPEC #: [id number] RECD: 04/25/21 18:30 STATUS: MOO RESuma #: [id number] LAURA: 04/25/21 18:[address]: Nathan Álvarez DEPT: SURGICAL PATHOLOGY RECD BY: Padilla Brenner ENTERED: 04/26/21 10:32 SP TYPE: Bone OTHR DR: Dr. Carmel Goncalves MD Tissues: Vertebra, NOS Procedures: Decalcification bone/plaque Surgery Specimen Level V HEADER OPERATION: Kyphoplasty L3 PRE-OP DIAGNOSIS: Compression fracture TISSUE SUBMITTED: L3 vertebral body MICROSCOPIC DIAGNOSIS L3 vertebral body, biopsy: Fragments of blood clot and a minute fragment of bone with reactive changes, negative for malignancy, clinically compression fracture. See comment. CHANA:nirav 04/29/2021 GROSS DIAGNOSIS Hematopoietic marrow with trilineage hematopoiesis is noted. Clinical correlation and appropriate follow up are necessary. MICROSCOPIC DESCRIPTION Slides are reviewed. GROSS DESCRIPTION Received is one container labeled with the patient's name and not further designated. The specimen consists of multiple fragments of blood clots that in aggregate measure 2.5 x 1.5 x 0.1 cm. A minute fragment of bone is also noted mixed with blood clot measuring 0.1 cm in greatest dimension. The entire specimen is submitted in one cassette after short decalcification. / CHANA:nirav 04/26/21 TC:5 CPT: 64741, 00038
== END | disposition home or self-care (01) ==
LOC: LABSPEC 04-26 08:12
PROVIDERS: PCP Internal Medicine; Visit Provider Anesthesiology Pain Medicine
DX: M48.56XA Collapsed vertebra, not elsewhere classified, lumbar region, initial encounter for fracture (principal)
CPT/HCPCS: 88307; 88311

== ENCOUNTER → 2021-04-30 13:13 | Outpatient (CLI) | payer MEDICARE, OTHER, SELFPAY ==
[2021-04-22 14:53] VITALS: BMI 30.2
--- NOTE | 2021-04-30 13:14 | MRI_ITS ---
STUDY: MRI LUMBAR SPINE WITHOUT CONTRAST REASON FOR EXAM: Female, 70 years old. pain TECHNIQUE: Standardized fat and water weighted pulse sequences were obtained in the sagittal and axial planes. COMPARISON: 02/14/2021 FINDINGS: T12-L1: Normal endplates. Normal disc height, hydration and morphology. Normal bilateral facet joints. Normal central canal and bilateral lateral recesses. Normal bilateral intervertebral neural foramina. Normal lumbar lordosis. Moderate levoscoliosis centered at L2. Normal conus medullaris that terminates at the L1/L2. Acute mild compression fracture the inferior endplate of L2 without retropulsion into the spinal canal. Chronic mild compression fracture of L3. With vertebroplasty in the interim and without retropulsion into the spinal canal. L1-2: Normal endplates. Normal disc height, hydration and morphology. Normal bilateral facet joints. Normal central canal and bilateral lateral recesses. Normal bilateral intervertebral neural foramina. L2-3: Normal endplates. Normal disc height, hydration and morphology. Normal bilateral facet joints. Normal central canal and bilateral lateral recesses. Normal bilateral intervertebral neural foramina. L3-4: Normal endplates. Normal disc height, hydration and morphology. Normal bilateral facet joints. Normal central canal and bilateral lateral recesses. Normal bilateral intervertebral neural foramina. L4-5: No change in the mild broad disc protrusion which produces mild spinal stenosis with mild bilateral recess stenosis, mild right neural foraminal stenosis and moderate left neural foraminal stenosis. L5-S1: No change in the mild broad disc protrusion which produces mild spinal stenosis, mild right neural foraminal stenosis and moderate left neural foraminal stenosis. Normal visualized sacral ala. Normal visualized paraspinous soft tissue structures. MRI/Spine Lumbar (Routine) IMPRESSION: 1. Acute mild compression fracture the inferior endplate of L2 without retropulsion into the spinal canal. 2. Interval vertebroplasty of the chronic mild compression fracture of L3 also without retropulsion into the spinal canal. 3. Moderate levoscoliosis with no change in degenerative disc disease. Electronically Signed: Aidan Stewart MD at 13:44 EDT Tel , Service support ,
== END ==
PROVIDERS: PCP Internal Medicine; Referring Provider Orthopaedic Surgery; Visit Provider Orthopaedic Surgery
DX: S32.009A Unspecified fracture of unspecified lumbar vertebra, initial encounter for closed fracture (principal); X58.XXXA Exposure to other specified factors, initial encounter; Y93.9 Activity, unspecified; Y92.9 Unspecified place or not applicable; Y99.9 Unspecified external cause status
CPT/HCPCS: 72148

== ENCOUNTER → 2021-05-24 13:51 | Outpatient (CLI) | payer MEDICARE, OTHER, SELFPAY ==
[2021-05-24 09:17] VITALS: BMI 30.2
--- NOTE | 2021-05-24 13:52 | MRI_ITS ---
We are attempting to reach an attending provider to discuss findings. An addendum with communication details will be sent when the communication is complete. STUDY: MRI LUMBAR SPINE WITHOUT CONTRAST REASON FOR EXAM: Female, 70 years old. Pain -- intractable radiculopathy/foreign body spina cord TECHNIQUE: Standardized fat and water weighted pulse sequences were obtained in the sagittal and axial planes. COMPARISON: X-ray May 24, 2021. MRI April 30, 2021 FINDINGS: T12-L1: Normal endplates. Normal disc height, hydration and morphology. Normal bilateral facet joints. Normal central canal and bilateral lateral recesses. Normal bilateral intervertebral neural foramina. Normal lumbar lordosis. There is a levoscoliosis of the lumbar spine. Normal conus medullaris that terminates at the L1 level. There is chronic T12 compression fracture with 60% loss of height. There is L2 compression fracture of 20% with mild marrow edema and diminished signal kyphoplasty. There is focal extruded methyl methacrylate in the spinal canal surrounding and deforming nerve roots, series 7 image 21/. There is L3 compression fracture of 20% with mild marrow edema and diminished signal kyphoplasty. There is no new fracture. L1-2: Disc bulge. Mild spurring of the bilateral facet joints. Normal central canal and bilateral lateral recesses. Normal bilateral intervertebral neural foramina. L2-3: Disc bulge and spurring to the left. Facet spurring. Mild canal stenosis. Mild right foraminal narrowing. L3-4: Disc bulge and spurring. Facet spurring and ligamentum flavum hypertrophy. Mild facet is very mild foraminal narrowing. L4-5: Disc space narrowing. Disc bulge and spurring with a right paracentral disc protrusion, series 7 image 8/30. Facet spurring. Left laminotomy. No canal stenosis. Left greater than right foraminal narrowing. L5-S1: Disc bulge and spurring. Facet spurring. Left laminotomy. No canal stenosis. Bilateral foraminal narrowing. Normal visualized sacral ala. Normal visualized paraspinous soft tissue structures. There are parapelvic cysts of the kidneys. There is atrophy of the left kidney. MRI/Spine Lumbar (Routine) IMPRESSION: Scoliosis with postoperative and degenerative change, canal stenosis, and foraminal narrowing. L2 and L3 compression fractures status post kyphoplasty. There is extruded methyl methacrylate in the canal at L2. Electronically Signed: Chip Gramajo MD at 15:47 EDT , Service support ,
== END ==
PROVIDERS: PCP Internal Medicine; Visit Provider Orthopaedic Surgery
DX: M51.16 Intervertebral disc disorders with radiculopathy, lumbar region (principal)
CPT/HCPCS: 72148

== ENCOUNTER 2021-09-01 13:04 | Emergency (ER) | payer MEDICARE, OTHER, SELFPAY ==
[2021-09-01 13:04] VITALS: BP 97/69; PULSE 77; RESP 19; TEMP 36.7; O2SAT 97; BMI 30.5
[2021-09-01 13:07] VITALS: BP 100/64; PULSE 69; RESP 24; O2SAT 98
--- NOTE | 2021-09-01 13:14 | RAD_ITS ---
STUDY: X-RAY CHEST REASON FOR EXAM: Female, 71 years old. Chest pain, shortness of breath TECHNIQUE: Frontal portable view of the chest COMPARISON: None. FINDINGS: The lungs are clear and expanded with atelectasis/scarring in the left base. There is no demonstrated pleural abnormality. There is probably hiatal hernia. Normal size heart. Normal mediastinum and craig. Normal visualized pulmonary arteries. Normal visualized aortic arch and descending thoracic aorta. There is severe thoracolumbar S-shaped scoliosis with thoracic curve pointing to the right. There is no demonstrated abnormality of the visualized soft tissue structures of the upper abdomen. RAD/Chest 1 View (Portable) IMPRESSION: No acute disease. Consider CT of the chest with IV contrast if additional evaluation of mediastinum is needed. Electronically Signed: Do Burks MD at 14:16 EST Tel , Service support ,
--- NOTE | 2021-09-01 13:15 | EKG12_ITS ---
Test Reason : CP Blood Pressure : / mmHG Vent. Rate : 068 BPM Atrial Rate : 068 BPM P-R Int : 196 ms QRS Dur : 084 ms QT Int : 452 ms P-R-T Axes : 050 -40 012 degrees QTc Int : 480 ms Normal sinus rhythm Left axis deviation Abnormal ECG Confirmed by GOYO CONNELL, STEPHANIE ([id number]), manuscript editor ANY RAMIREZ ([id number]) on 09/02/2021 1:56:32 PM Referred By: CHARLA Confirmed By:STEPHANIE NANCE MD
--- NOTE | 2021-09-01 13:16 | ED.VIS.CHEST ---
HPI History of Present Illness Chief Complaint: Chest Pain Informant: patient Onset/Context/Timing Onset: Yesterday Activity at onset: sudden and rest Timing: Continuous Quality: Positive for Aching and Sharp Location: Left Parasternal Current Severity: Mild Maximum Severity: Moderate Worsened By: Breathing and Coughing; Not Worsened By Movement of Arm, Movement of Torso, Eating and Palpation Relieved By: Nothing Associated Symptoms: Positive for Nausea, Diaphoresis, Dyspnea and Cough; Negative for Fever, Lightheadedness and Acid Reflux Narrative Narrative: Patient is a 71-year-old woman status post ablation by Dr. Galarza at [facility] August 08. She states her pressure normally was slightly elevated prior to the procedure. This morning she had lightheadedness and checked her pressure and systolic was 191. She denies black or maroon-colored stool. She is not on an anticoagulant. She states the chest pain does have a pleuritic component. She does have a cough which is nonproductive. She denies fever, chills night sweats. She denies rhinorrhea, congestion or postnasal drainage. She denies sore throat. She states the left-sided pain does radiate to her left shoulder and scapula. She denies paresthesia, anesthesia or motor weakness. She denies diarrhea, black or maroon-colored stool. She denies urinary symptoms. She does have a bruise on her left leg. She denies pain, swelling or discoloration. She denies history of VTE. Prior Similar Symptoms: No Recent Illness/Hospitalization: Yes CVD Risk Factors: Positive for Hypertension and Hypercholesterolemia; Negative for Diabetes, Family History 1' </=55 and Smoking PE Risk Factors: Positive for Recent Travel/Surgery and Recent Immobilization; Negative for Prior DVT or PE, Cancer and OCP + Smoking + >/=35 TAD Risk Factors: Positive for Hypertension; Negative for Marfan's Syndrome and Family History [facility] Medical History Acute right flank pain Closed fracture of left proximal humerus Depression Essential (primary) hypertension Fracture of talus of left ankle, closed History of cataract History of gastroesophageal reflux (GERD) Hyperlipidemia Hypothyroidism Left ankle strain Osteoporosis Paroxysmal SVT (supraventricular tachycardia) Sacro-iliac pain Home Medications bupropion HCl 150 mg PO DAILY 09/24/16 [History Last Taken 01/08/19 150 MG] citalopram 40 mg PO QHS 09/24/16 [History Last Taken 01/08/19 40 MG] levothyroxine 50 mcg PO DAILY 09/24/16 [History Last Taken 01/08/19 50 MCG] pantoprazole 40 mg PO QHS 09/24/16 [History Last Taken 01/08/19 40 MG] alprazolam 0.5 mg PO QHS 12/09/16 [History Last Taken 01/08/19 0.5 MG] acetaminophen 1,300 mg PO PRN PRN 09/28/18 [History Last Taken 01/08/19 1300 MG] buspirone 15 mg PO DAILY 09/28/18 [History Last Taken 01/08/19 15 MG] meloxicam 15 mg PO DAILY 09/28/18 [History Last Taken 01/08/19 15 MG] tizanidine 4 mg PO QHS 09/28/18 [History Last Taken 01/08/19 4 MG] tramadol 50 mg tablet See Rx Instructions PO Q6H PRN #24 tab 11/12/20 [Rx Last Taken Unknown] turmeric 400 mg capsule 400 mg PO DAILY cap 11/26/20 [History Last Taken Unknown] biotin 5 mg capsule 5 mg PO DAILY 01/31/21 [History Last Taken Unknown] cholecalciferol (vitamin D3) 125 mcg (5,000 unit) tablet 125 mcg PO DAILY 01/31/21 [History Last Taken Unknown] fexofenadine 180 mg tablet 180 mg PO DAILY 01/31/21 [History Last Taken Unknown] magnesium 250 mg tablet 250 mg PO DAILY 01/31/21 [History Last Taken Unknown] multivit with zenfgzqv-tbcm-TN-lutein 8 mg iron-400 mcg-300 mcg tablet 1 tablet PO DAILY 01/31/21 [History Last Taken Unknown] mv-min-vit C-ascorb To-Yeu-Vrd-herb #124 333 mg-1.7 mg chewable tablet 1 tablet PO DAILY 01/31/21 [History Last Taken Unknown] hydrocodone 7.5 mg-acetaminophen 325 mg tablet 1 tab PO QHS PRN 05/06/21 [History Last Taken Unknown] gabapentin 100 mg capsule 300 mg PO QHS cap 05/24/21 [History Last Taken Unknown] Allergy/AdvReac Type Severity Reaction Status Date / Time latex Allergy COUGHING Verified 06/04/21 11:36 AND SORE THROAT Family History Father , Age 43 Hodgkins disease Sister Osteoporosis Mother Myocardial infarction Other Hypertension Surgical History History of appendectomy History of bladder suspension procedure History of bunionectomy History of cataract extraction History of hysterectomy History of lumbar laminectomy (09/2019) History of radiofrequency ablation procedure for cardiac arrhythmia (08/07/21) History of right oophorectomy History of total left hip arthroplasty Social History (Updated 09/01/21 @ 13:[address] Fred West MD) household members: spouse Smoking Status: Never smoker alcohol intake: current alcohol intake frequency: a few times a month Alcohol type: wine substance use type: does not use caffeine: Yes Type: coffee Number of servings: 2 what type of physical activity do you participate in: none ROS ROS ED Constitutional Constitutional ED: Denies chills, fever(s), subjective, sweats or weight loss Eyes Eyes: Reports none ENT ENT ED: Denies ear pain, rhinorrhea or sore throat Cardiovascular Cardiovascular: Reports as per HPI; Denies orthopnea or paroxysmal nocturnal dyspnea Respiratory/Chest Respiratory/Chest: Reports cough, dyspnea and dyspnea on exertion; Denies orthopnea, paroxysmal nocturnal dyspnea or sputum Gastrointestinal Gastrointestinal: Reports nausea; Denies abdominal pain, constipation, diarrhea, melena or vomiting Genitourinary Genitourinary ED: Denies dysuria, hematuria or urinary frequency Musculoskeletal Musculoskeletal: Reports back pain and neck pain; Denies arthralgias or myalgias Integumentary Denies rash Neurologic Neurologic: Denies headache(s) or weakness Endocrine Endocrinology: Denies polydipsia, polyphagia or polyuria Hematologic/Lymphatic Hematologic/Lymphatic: Denies easy bleeding or easy bruising EXAM Physical Exam Const Vital Signs: 09/01/21 13:04 09/01/21 13:07 09/01/21 14:42 Temperature 98.0 F Temperature Source Oral Pulse Rate 77 69 67 Respiratory Rate 19 H 24 H 18 Respiratory Effort Short of Breath Respiratory Pattern Tachypnea Blood Pressure 97/69 100/64 126/67 H Blood Pressure Mean 78 76 86 Pulse Ox 97 98 98 Oxygen Delivery Method Room Air Room Air Room Air Positive well nourished and well developed General Appearance ED: well developed and NAD; Negative for pallor HEENT Reports dry mucous membranes normocephalic and atraumatic Mouth ED: Yes dry mucous membranes Mouth: dry mucous membranes Eyes PERRL and EOMs intact bilaterally General Eye ED: Negative for pale conjunctiva or scleral icterus Neck no lymphadenopathy, supple and no JVD General: Negative for tenderness Chest Wall inspection of chest normal Resp normal respiratory effort and No clear to auscultation bilaterally Effort and Inspection: respiratory distress Auscultation: rales bilateral 1/[address] way up; Negative for diminished lung sounds Cardio regular rate, regular rhythm, S1 normal heart sound, S2 normal heart sound and no murmurs GI normal to inspection, nondistended, normoactive bowel sounds, soft to palpation, non-tender and non-distended Back/Spine no CVA tenderness and no thoracic nor lumbar tenderness Extremity normal to inspection General Extremety ED: Negative for edema, pulses abnormal or tenderness General Extremity: Negative for edema or pulses abnormal Neuro oriented x3, CN's II-XII intact bilaterally and no sensory deficits noted Sensorium / Orientation: awake Motor Exam: strength 5/5 throughout Psych mental status grossly normal Skin no rashes or lesions noted and no wounds Skin Narrative: Bruises noted lower extremity. General Skin Exam: Negative for jaundice or pallor MDM MDM MDM Narrative Medical decision making narrative: Patient with chest pain that has pleuritic component. Since she had recent procedure this may represent pulmonary embolus versus pneumonia versus pleurisy versus pericarditis status post ablation. EKG, chest x-ray and appropriate blood work was ordered. Patient's initial blood pressure is low compared to her norm. Repeat blood pressure was 126/67. Since patient's work-up is unremarkable she was informed the cause of her pain is unknown. Lab Data Attestation: I reviewed the patient's lab results. Lab results narrative: Initial troponin was normal, 7. 2-hour troponin is 7 and delta is 0. Based on algorithm negative delta has a 100% negative predictive value for cardiac disease. Therefore will discharge to home. Labs: Laboratory Results - last 24 hr 09/01/21 09/01/21 09/01/21 13:10 13:10 13:10 WBC 6.8 RBC 3.97 L Hgb 12.0 Hct 36.5 L MCV 91.9 MCH 30.2 MCHC 32.9 RDW Std Deviation 45.1 H RDW Coeff of Garret 13.2 Plt Count 381 MPV 8.9 Immature Gran % (Auto) 0.100 Neut % (Auto) 69.7 Lymph % (Auto) 20.7 Rooks % (Auto) 6.8 Eos % (Auto) 1.8 Baso % (Auto) 0.9 Absolute Neuts (auto) 4.7 Absolute Lymphs (auto) 1.40 Nucleated RBC % 0 D-Dimer Quant (PE/DVT) 0.44 Sodium 137 Potassium 3.7 Chloride 106 Carbon Dioxide 27.0 Anion Gap 4 L BUN 13 Creatinine 1.01 Estim Creat Clear Calc 36.70 Est GFR (MDRD) Af Amer 70 Est GFR (MDRD) Non-Af 57 L BUN/Creatinine Ratio 12.9 Glucose 89 Lactic Acid Calcium 8.6 Troponin I High Sens 7 09/01/21 09/01/21 13:31 15:18 WBC RBC Hgb Hct MCV MCH MCHC RDW Std Deviation RDW Coeff of Garret Plt Count MPV Immature Gran % (Auto) Neut % (Auto) Lymph % (Auto) Rooks % (Auto) Eos % (Auto) Baso % (Auto) Absolute Neuts (auto) Absolute Lymphs (auto) Nucleated RBC % D-Dimer Quant (PE/DVT) Sodium Potassium Chloride Carbon Dioxide Anion Gap BUN Creatinine Estim Creat Clear Calc Est GFR (MDRD) Af Amer Est GFR (MDRD) Non-Af BUN/Creatinine Ratio Glucose Lactic Acid 1.2 Calcium Troponin I High Sens 7 Radiography Diagnostic Testing: Clinical Impression(s) from Imaging Studies Chest X-Ray 09/01/21 13:14 IMPRESSION: No acute disease. Consider CT of the chest with IV contrast if additional evaluation of mediastinum is needed. Electronically Signed: Do Burks MD at 14:16 EST Tel , Service support , EKG Initial EKG: Attestation: I personally reviewed and interpreted this EKG as follows: Interpretation: Sinus Rhythm (Sinus rhythm ventricular rate of 68. NV interval 196 ms. QRS duration 84 ms. QT duration 452 ms. [place] to the left.) Discharge Plan Triage Chief Complaint: Chest Pain ED Provider: West,Fred Dx/Rx/DC Orders Clinical Impression: Acute left-sided thoracic back pain Instructions: ED Chest Pain, Noncardiac Prescriptions: No Action gabapentin 100 mg capsule 300 mg PO QHS RF: 0 tramadol 50 mg tablet See Rx Instructions PO Q6H PRN (Reason: pain) Qty: 24 RF: 0 turmeric 400 mg capsule 400 mg PO DAILY RF: 0 cholecalciferol (vitamin D3) 125 mcg (5,000 unit) tablet 125 mcg PO DAILY RF: 0 magnesium 250 mg tablet 250 mg PO DAILY RF: 0 biotin 5 mg capsule 5 mg PO DAILY RF: 0 Centrum Silver Women 8 mg iron-400 mcg-300 mcg tablet 1 tablet PO DAILY RF: 0 fexofenadine [Alvina Allergy] 180 mg tablet 180 mg PO DAILY RF: 0 Airborne (ascorbate sodium) 333-1.7 mg tablet,chewable 1 tablet PO DAILY RF: 0 hydrocodone-acetaminophen 7.5-325 mg tablet 1 tab PO QHS PRN (Reason: Pain) RF: 0 citalopram 40 MG tablet 40 mg PO QHS RF: 0 levothyroxine 50 MCG tablet 50 mcg PO DAILY RF: 0 pantoprazole 40 MG tablet 40 mg PO QHS RF: 0 bupropion HCl 150 MG tablet extended release 12 hr 150 mg PO DAILY RF: 0 alprazolam 0.5 MG tablet 0.5 mg PO QHS RF: 0 tizanidine 4 MG tablet 4 mg PO QHS RF: 0 meloxicam 15 MG tablet 15 mg PO DAILY RF: 0 acetaminophen 650 MG tablet extended release 1,300 mg PO PRN PRN (Reason: Pain) RF: 0 buspirone 15 MG tablet 15 mg PO DAILY RF: 0 Primary Care Provider: Carmel Goncalves Referrals: Carmel Goncalves MD [Primary Care Provider] - 3-5 Days if not improving Disposition Disposition: Home, Self Care
[2021-09-01 13:21] LABS: Absolute Neutrophil Count 4.7 X10^3/uL (2.0-7.7); Basophil# 0.06 X10^3/uL; Basophil% 0.9 % (0-1); Eosinophil# 0.12 X10^3/uL; Eosinophils% 1.8 % (0-5); Hematocrit 36.5 % (37-47); Lymphocyte % 20.7 % (19-41); Mean Corp Hgb Conc 32.9 g/dL (32-36); Mean Corpuscular Hgb 30.2 pg (27.0-32.0); Mean Corpuscular Volume 91.9 fL (81-99); Mean Platelet Vol. 8.9 fl (6.2-12.0); Monocyte# 0.46 X10^3/uL; Monocyte% 6.8 % (0-10); NRBC Flagged by Analyzer 0 % (0-5); Neutrophil # 4.71 X10^3/uL (2.7-7.7); Neutrophil % 69.7 % (47-70); Platelet Count 381 K/mm3 (150-450); RBC Distribution Width CV 13.2 % (11.6-14.6); RBC Distribution Width SD 45.1 fl (35.1-43.9); Red Blood Count 3.97 M/mm3 (4.2-5.4); White Blood Count 6.8 K/mm3 (4.4-11.0)
[2021-09-01 13:33] LABS: D-Dimer Quantitative (DVT/PE) 0.44 FEU/ug/m (0.27-0.49)
[2021-09-01 13:39] LABS: Anion Gap 4 (5-15); BUN 13 mg/dL (7-18); BUN/Creat Ratio 12.9 RATIO (10-20); Calcium,Total 8.6 mg/dL (8.5-10.1); Chloride 106 mmol/L (98-107); Creatinine, Serum 1.01 mg/dL (0.55-1.02); EST Glomerular Filtration Rate 57 mL/min (>60); Est Glom Filt Rate - Afr Amer 70 mL/min (>60); Glucose 89 mg/dL (74-106); Potassium 3.7 mmol/L (3.5-5.1); Sodium Level 137 mmol/L (136-145); Troponin-I HS 7 pg/mL (3.0-54.0)
[2021-09-01 14:04] LABS: Lactic Acid 1.2 mmol/L (0.4-1.9)
[2021-09-01 14:42] VITALS: BP 126/67; PULSE 67; RESP 18; O2SAT 98
[2021-09-01] MEDS: Ondansetron 4 MG/2 ML Vial IV (15:24)
[2021-09-01] MEDS: Morphine 4 MG/ML Syringe IV (15:24)
[2021-09-01 15:43] LABS: Troponin-I HS 7 pg/mL (3.0-54.0)
[2021-09-01 15:58] VITALS: BP 122/74; PULSE 65; RESP 16; TEMP 37.1; O2SAT 95
== END 2021-09-01 15:59 | disposition home or self-care (01) ==
PROVIDERS: Emergency Provider Emergency Medicine; PCP Internal Medicine
DX: M54.6 Pain in thoracic spine (principal); I95.9 Hypotension, unspecified; R07.9 Chest pain, unspecified; I47.1 Supraventricular tachycardia; R05.9 Cough, unspecified; I10 Essential (primary) hypertension; E78.5 Hyperlipidemia, unspecified; E03.9 Hypothyroidism, unspecified; K21.9 Gastro-esophageal reflux disease without esophagitis; F32.A Depression, unspecified; Z79.1 Long term (current) use of non-steroidal anti-inflammatories (NSAID); Z79.890 Hormone replacement therapy; Z96.642 Presence of left artificial hip joint
CPT/HCPCS: 71045; 80048; 83605; 84484; 85025; 85379; 93005; 96361; 96374; 96375; 99285; J7040; A4216; J2405

== ENCOUNTER 2021-11-26 15:11 | Outpatient (CLI) | payer MEDICARE, OTHER, SELFPAY ==
--- NOTE | 2021-11-26 15:18 | BD_ITS ---
STUDY: DUAL ENERGY X-RAY ABSORPTIOMETRY / DXA REASON FOR EXAM: Female, 71 years old. M810. The patient is postmenopausal. Status post left hip replacement. TECHNIQUE: Bone Mineral Density (BMD) measurements of lumbar spine and right hip were obtained. COMPARISON: Comparison is made with prior study of 09/14/2018. FINDINGS: Lumbar Spine (L1-L4): g/cm2 (0.665) / T-score (-3.4) / Z-score (-1.2) Findings are suggestive of osteoporosis with a high fracture risk. Right Femur Total: g/cm2 (0.601) / T-score (-2.8) / Z-score (-1.2) Right Femoral Neck: g/cm2 (0.481) / T-score (-3.3) / Z-score (-1.4) The T-Scores on the most recent prior examination were: Lumbar Spine (L1-L4): There has been worsening of bone density since the previous examination. Right Femur Total: which represents an improvement of 11.1%. BD/Dexa Bone Density Study IMPRESSION: The patient is considered osteoporotic as outlined below according to World Elvis Organization (WHO) criteria with a high fracture risk. There has been worsening of bone density since the previous examination. Reference Information: The T-score is the number of standard deviations above or below the standard which is normal for young adults at their peak bone mineral density. The World Health Organization (WHO) interprets the T-scores as follows: Above -1 Normal bone density Between -1 and -2.5 Osteopenia Equal to / or below -2.5 Osteoporosis As a practical clinical guideline, osteopenia may be graded as follows: Mild -1 through -1.5 Moderate -1.6 through -2.0 Severe -2.1 through -2.4 The Z-score is the number of standard deviations above or below age-matched controls. A Z-score of less than -1.5 would be considered abnormal. References: 1. NIH Osteoporosis and Related Bone Diseases www osteo.org 2. International Society for Clinical Densitometry www iscd.org 3. National Osteoporosis Foundation www nof.org Electronically Signed: Chin Bell MD at 13:01 EST ,
== END 2021-11-26 23:59 | disposition home or self-care (01) ==
LOC: OPBD 15:13
PROVIDERS: PCP Internal Medicine; Visit Provider Nurse Practitioner
DX: M81.0 Age-related osteoporosis without current pathological fracture (principal)
CPT/HCPCS: 77080

== ENCOUNTER 2021-12-26 10:27 | Outpatient (CLI) | payer MEDICARE, OTHER, SELFPAY ==
[2021-12-26 11:40] LABS: Amphetamine Urine VISTA NEGATIVE (<1000 ng/mL); Barbiturate Urine VISTA NEGATIVE (< 200 ng/mL); Benzodiazepine Urine VISTA POSITIVE (< 200 ng/mL); Cocaine Urine VISTA NEGATIVE (< 300 ng/mL); Ecstacy Urine VISTA POSITIVE (< 500 ng/mL); Methadone Urine VISTA NEGATIVE (< 300 ng/mL); PCP Urine VISTA NEGATIVE (< 25 ng/mL); THC Urine VISTA NEGATIVE (< 50 ng/mL); Vista UDS pH Range 5
== END 2021-12-26 23:59 | disposition home or self-care (01) ==
PROVIDERS: PCP Internal Medicine; Referring Provider Anesthesiology Pain Medicine; Visit Provider Anesthesiology Pain Medicine
DX: F11.20 Opioid dependence, uncomplicated (principal)
CPT/HCPCS: 80307

== ENCOUNTER 2022-03-17 12:06 | Emergency (ER) | payer MEDICARE, OTHER, SELFPAY ==
[2022-03-17 12:07] VITALS: BP 132/74; PULSE 66; RESP 16; TEMP 37.2; O2SAT 99; BMI 36.3
--- NOTE | 2022-03-17 13:17 | ED.VIS.FALL ---
HPI HPI - Fall History of Present Illness Chief Complaint: Fall Informant: patient Occured/Mechanism Occurred: Today Mechanism/Context: Yes same level fall and Yes other see narrative below Usually ambulates: Without assistance Pain/Injury Pain Location: back, upper extremity and lower extremity Quality of Pain: Aching Current Severity: Moderate Maximum Severity: Severe Worsened by: moving Relieved by: remaining still Associated Symptoms Associated Symptoms: Negative for Parasthesias, Weakness, Loss of consciousness and Amnesia Narrative Narrative: Patient states she was feeling fine and in her kitchen today, she turned and twisted her ankle on the left, causing her to fall and land on her right side. She did not hit her head. She has many painful injured areas. Initially she states both shoulders although the left one is not really hurting now if she moves around, right elbow right wrist, right knee, and the left ankle that she twisted in addition to exacerbating chronic pain and her back, for which she sees pain management, had microdiscectomy remotely as well as nonoperative back fractures several months ago. No loss of consciousness. No prodromal symptoms. No numbness tingling weakness/loss of sensation in any of these extremities. No abdominal pain chest pain shortness of breath. [facility] Medical History Acute right flank pain Closed fracture of left proximal humerus Depression Essential (primary) hypertension Fracture of talus of left ankle, closed History of cataract History of gastroesophageal reflux (GERD) Hyperlipidemia Hypothyroidism Left ankle strain Osteoporosis Paroxysmal SVT (supraventricular tachycardia) Sacro-iliac pain Home Medications bupropion HCl 150 mg PO DAILY 09/24/16 [History Last Taken 01/08/19 150 MG] citalopram 40 mg PO QHS 09/24/16 [History Last Taken 01/08/19 40 MG] levothyroxine 50 mcg PO DAILY 09/24/16 [History Last Taken 01/08/19 50 MCG] pantoprazole 40 mg PO QHS 09/24/16 [History Last Taken 01/08/19 40 MG] alprazolam 0.5 mg PO QHS 12/09/16 [History Last Taken 01/08/19 0.5 MG] acetaminophen 1,300 mg PO PRN PRN 09/28/18 [History Last Taken 01/08/19 1300 MG] buspirone 15 mg PO DAILY 09/28/18 [History Last Taken 01/08/19 15 MG] meloxicam 15 mg PO DAILY 09/28/18 [History Last Taken 01/08/19 15 MG] tizanidine 4 mg PO QHS 09/28/18 [History Last Taken 01/08/19 4 MG] turmeric 400 mg capsule 400 mg PO DAILY cap 11/26/20 [History Last Taken Unknown] biotin 5 mg capsule 5 mg PO DAILY 01/31/21 [History Last Taken Unknown] cholecalciferol (vitamin D3) 125 mcg (5,000 unit) tablet 125 mcg PO DAILY 01/31/21 [History Last Taken Unknown] fexofenadine 180 mg tablet 180 mg PO DAILY 01/31/21 [History Last Taken Unknown] magnesium 250 mg tablet 250 mg PO DAILY 01/31/21 [History Last Taken Unknown] multivit with nmvvlzjd-wuyx-BL-lutein 8 mg iron-400 mcg-300 mcg tablet 1 tablet PO DAILY 01/31/21 [History Last Taken Unknown] hydrocodone 7.5 mg-acetaminophen 325 mg tablet 1 tab PO TID PRN tab 10/01/21 [History Last Taken Unknown] methylprednisolone 4 mg tablets in a dose pack 4 mg PO DAILY #21 tab 02/14/22 [Rx Last Taken Unknown] pregabalin 75 mg capsule mg PO BID cap 02/14/22 [History Last Taken Unknown] zoledronic acid 5 mg/100 mL in mannitol 5 %-water intravenous piggybck ea .ROUTE 02/14/22 [History Last Taken Unknown] metoprolol succinate 25 mg tablet,extended release 24 hr 25 mg PO DAILY #90 tab 02/17/22 [Rx Last Taken Unknown] Allergy/AdvReac Type Severity Reaction Status Date / Time latex Allergy COUGHING Verified 02/14/22 14:09 AND SORE THROAT Family History Father , Age 43 Hodgkins disease Sister Osteoporosis Mother Myocardial infarction Other Hypertension Surgical History History of appendectomy History of bladder suspension procedure History of bunionectomy History of cataract extraction History of hysterectomy History of lumbar laminectomy (09/2019) History of radiofrequency ablation procedure for cardiac arrhythmia (08/07/21) History of right oophorectomy History of total left hip arthroplasty Social History household members: spouse Smoking Status: Never smoker alcohol intake: current alcohol intake frequency: a few times a month Alcohol type: wine substance use type: does not use caffeine: Yes Type: coffee Number of servings: 2 what type of physical activity do you participate in: none ROS ROS ED Constitutional Constitutional ED: Denies chills or fever(s) Eyes Eyes: Denies change in vision or diplopia ENT ENT ED: Denies ear pain, epistaxis, facial pain or rhinorrhea Cardiovascular Cardiovascular: Denies chest pain or palpitations Respiratory/Chest Respiratory/Chest: Denies cough or dyspnea Gastrointestinal Gastrointestinal: Denies abdominal pain, diarrhea, melena, nausea or vomiting Genitourinary Genitourinary ED: Denies dysuria or hematuria Musculoskeletal Musculoskeletal: Reports as per HPI, back pain and extremity pain; Denies neck pain Integumentary Denies abscess, Abrasions, laceration or rash Neurologic Neurologic: Denies confusion, headache(s), paresthesias or weakness EXAM Physical Exam Const Vital Signs: 03/17/22 12:07 03/17/22 12:13 03/17/22 14:06 Temperature 98.9 F Temperature Source Temporal Pulse Rate 66 64 Respiratory Rate 16 16 Respiratory Effort Normal Respiratory Depth Normal Respiratory Pattern Normal Blood Pressure 132/74 H 142/66 H Blood Pressure Mean 93 91 Pulse Ox 99 98 Oxygen Delivery Method Room Air Room Air Room Air Oxygen Flow Rate (L/min) 99 Positive well nourished and well developed General Appearance ED: well developed and NAD HEENT Reports TM's clear and nasal mucous membranes and turbinates normal atraumatic Face and Sinus: Negative for facial tenderness Tympanic Membrane ED: Yes TM's clear Eyes PERRL and EOMs intact bilaterally Visual Acuity: other Other Details: no entrapment or pain with extraocular movements Neck full ROM and supple Neck Narrative: Mildly tender in the left trapezius, far away from the spine which is nontender in the midline, able to range without difficulty General: tenderness Chest Wall inspection of chest normal and palpation of chest normal Chest: symmetrical chest wall rise; Negative for crepitus or tenderness Resp normal respiratory effort and clear to auscultation bilaterally Percussion: other equal BS bilat Cardio no murmurs Rate: regular rate Rhythm: regular rhythm GI normal to inspection, nondistended, normoactive bowel sounds, soft to palpation and non-tender Back/Spine normal to inspection Back/Spine Narrative: Tender in multiple areas of the spine, mostly the upper and mid thoracic, and throughout the lumbar including the tailbone. No step-offs, no signs of injury, no deformities. Mildly tender left lower ribs without crepitance, patient takes a deep breath and has pain but no respiratory distress. Cervical Spine: Negative for cervical spine tenderness Thoracic Spine / Upper Back: thoracic spinal tenderness Lumbar Spine / Lower Back: lumbar spinal tenderness Extremity normal to inspection Extremity Narrative: Many areas of tenderness which include the following: Entire right knee, left lateral malleolus without tenderness at base of the fifth metatarsal, medial malleolus, or left fibular head; right acromioclavicular joint but not the proximal humerus, right medial epicondyle of the elbow which otherwise moves fully, right dorsal distal radius without scaphoid or distal ulnar tenderness and her wrist moves fully including supination/pronation. Full range of motion of the right knee, extensor mechanism intact, no effusion, all ligaments stable with short endpoints and without pain on stressing. General Extremety ED: Yes tenderness Neuro oriented x3, CN's II-XII intact bilaterally, moves all extremities, no focal motor deficits and no sensory deficits noted [place] Coma Scale: document GCS findings Spontaneous Obeys Commands Oriented 15 Sensorium / Orientation: awake and alert Psych mental status grossly normal and thought process normal Skin no wounds Lesions: no lesions Rashes: no rashes MDM MDM MDM Narrative Medical decision making narrative: Patient has many areas of injury but they are almost all extremity and back. I do not think she needs CTs of her body, so we focused on getting x-rays of all of the affected areas and giving her a dose of pain medication. After morphine for her pain, she felt much better and was able to move around better. The following x-ray series were ordered and interpreted by myself: Right wrist 3 views, negative for acute Thoracic spine 3 view negative for anything acute, chronic changes noted with scoliosis Right shoulder 3 view negative for anything acute Lumbar spine 2 view negative for anything acute Right knee 4 view negative for anything acute Bilateral hips 5 view negative for nothing acute Right elbow 3 view negative for anything acute Left ankle nondisplaced Uriostegui B distal fibula fracture without lateral talar shift Radiology in agreement with these. Patient was feeling better and offered admission but she wants to go home. We we will get her up in an orthotic boot with crutches and she can bear weight and is comfortable going home with her . I discussed all this with Dr. Mart who advised making her weightbearing as tolerated for now until she follows up in the office. Radiography Diagnostic Testing: Clinical Impression(s) from Imaging Studies Ankle X-Ray 03/17/22 13:20 IMPRESSION: Acute nondisplaced transverse fractures of the lateral malleolus the fibula with surrounding soft tissue swelling. Electronically Signed: Aidan Stewart MD at 14:43 EDT Reading Location ID and State: [email or web address] , Service support , Elbow X-Ray 03/17/22 13:20 IMPRESSION: Normal x-ray examination of the elbow. Electronically Signed: Aidan Stewart MD at 13:48 EDT Reading Location ID and State: [email or web address] [facility] , Service support , Hip/Pelvis X-Ray 03/17/22 13:20 IMPRESSION: No acute fracture or dislocation. Electronically Signed: Aidan Stewart MD at 14:56 EDT Reading Location ID and State: [email or web address] , Service support , Knee X-Ray 03/17/22 13:20 IMPRESSION: No acute fracture or dislocation. Electronically Signed: Aidan Stewart MD at 15:05 EDT Reading Location ID and State: [email or web address] , Service support , Lumbar Spine X-Ray 03/17/22 13:20 IMPRESSION: 1. No acute fracture or subluxation. 2. Chronic compression fractures of L2 and L3 treated with vertebroplasty. 3. Moderate levoscoliosis. 4. Diffuse degenerative disc disease.. 5. Electronically Signed: Aidan Stewart MD at 13:53 EDT Reading Location ID and State: [email or web address] / [email or web address] , Service support , Shoulder X-Ray 03/17/22 13:20 IMPRESSION: Normal x-ray examination of the shoulder. Electronically Signed: Aidan Stewart MD at 14:01 EDT Reading Location ID and State: [email or web address] / [email or web address] , Service support , Thoracic Spine X-Ray 03/17/22 13:20 IMPRESSION: No acute fracture or subluxation. Electronically Signed: Aidan Stewart MD at 14:42 EDT Reading Location ID and State: [email or web address] , Service support , Wrist X-Ray 03/17/22 13:20 IMPRESSION: No acute fracture or dislocation. Electronically Signed: Aidan Stewart MD at 14:00 EDT Reading Location ID and State: [email or web address] / [email or web address] , Service support , Discharge Plan Triage Chief Complaint: Fall ED Provider: Chip Acosta Dx/Rx/DC Orders Clinical Impression: Closed traumatic nondisplaced fracture of distal end of left fibula, Accidental fall, Contusion of multiple sites, Acute exacerbation of chronic low back pain Instructions: ED Ankle Fracture, Distal Fibula Prescriptions: No Action turmeric 400 mg capsule 400 mg PO DAILY RF: 0 cholecalciferol (vitamin D3) 125 mcg (5,000 unit) tablet 125 mcg PO DAILY RF: 0 magnesium 250 mg tablet 250 mg PO DAILY RF: 0 biotin 5 mg capsule 5 mg PO DAILY RF: 0 Centrum Silver Women 8 mg iron-400 mcg-300 mcg tablet 1 tablet PO DAILY RF: 0 fexofenadine [Alvina Allergy] 180 mg tablet 180 mg PO DAILY RF: 0 pregabalin 75 mg capsule PO BID RF: 0 zoledronic [id number]-cmpbm [Reclast] 5 mg/100 mL piggyback .Route RF: 0 methylprednisolone [Medrol (You)] 4 mg tablets,dose pack 4 mg PO DAILY Qty: 21 RF: 0 citalopram 40 MG tablet 40 mg PO QHS RF: 0 levothyroxine 50 MCG tablet 50 mcg PO DAILY RF: 0 pantoprazole 40 MG tablet 40 mg PO QHS RF: 0 bupropion HCl 150 MG tablet extended release 12 hr 150 mg PO DAILY RF: 0 alprazolam 0.5 MG tablet 0.5 mg PO QHS RF: 0 tizanidine 4 MG tablet 4 mg PO QHS RF: 0 meloxicam 15 MG tablet 15 mg PO DAILY RF: 0 acetaminophen 650 MG tablet extended release 1,300 mg PO PRN PRN (Reason: Pain) RF: 0 buspirone 15 MG tablet 15 mg PO DAILY RF: 0 hydrocodone-acetaminophen 7.5-325 mg tablet 1 tab PO TID PRN (Reason: Pain) RF: 0 metoprolol succinate 25 mg tablet extended release 24 hr 25 mg PO DAILY Qty: 90 RF: 3 Primary Care Provider: Carmel Goncalves Referrals: Carmel Goncalves MD [Primary Care Provider] - Yves Mart DO [STAFF PHYSICIAN] - (Call for follow-up appointment to be seen within the next 1-2 weeks) Activity Restrictions/Additional Instructions: Weightbearing as tolerated is okay until you are seen by orthopedics and told otherwise. You may take the boot off to sleep, bathe, etc. but whenever you are getting around make sure it is on and use crutches or walker as needed. Disposition Disposition: Home, Self Care
--- NOTE | 2022-03-17 13:20 | RAD_ITS ---
STUDY: X-RAY - LEFT ANKLE REASON FOR EXAM: Female, 71 years old. pain/injury TECHNIQUE: 3 view(s) of the ankle. COMPARISON: 06/04/2021 FINDINGS: Normal visualized distal tibia and fibula. Acute nondisplaced transverse fracture through the lateral malleolus the fibula with surrounding soft tissue swelling. Normal tibiotalar articulation and ankle mortise. Normal visualized talus and calcaneus. The visualized subtalar, talonavicular, calcaneocuboid and tarsal articulations are normal. The soft tissue structures are unremarkable. RAD/Ankle min 3 Views IMPRESSION: Acute nondisplaced transverse fractures of the lateral malleolus the fibula with surrounding soft tissue swelling. Electronically Signed: Aidan Stewart MD at 14:43 EDT ,
--- NOTE | 2022-03-17 13:20 | RAD_ITS ---
STUDY: X-RAY - RIGHT ELBOW REASON FOR EXAM: Female, 71 years old. pain/injury TECHNIQUE: 3 view(s) of the elbow. COMPARISON: None. FINDINGS: Normal visualized humerus, radius and ulna. Normal radiocapitellar and ulnotrochlear articulations. The soft tissue structures are unremarkable. RAD/Elbow min 3 Views IMPRESSION: Normal x-ray examination of the elbow. Electronically Signed: Aidan Stewart MD at 13:48 EDT ,
--- NOTE | 2022-03-17 13:20 | RAD_ITS ---
STUDY: X-RAY - RIGHT KNEE REASON FOR EXAM: Female, 71 years old. pain/injury TECHNIQUE: 4 view(s) of the knee. COMPARISON: 01/08/1990 FINDINGS: Normal visualized distal femur. Normal visualized proximal tibia and fibula. Normal proximal tibiofibular articulation. There is mild degenerative arthrosis of the medial femorotibial compartment. There is mild degenerative arthrosis of the lateral femorotibial compartment. There is mild degenerative arthrosis of the patellofemoral articulation. The soft tissue structures are unremarkable. RAD/Knee 4 or More Views IMPRESSION: No acute fracture or dislocation. Electronically Signed: Aidan Stewart MD at 15:05 EDT ,
--- NOTE | 2022-03-17 13:20 | RAD_ITS ---
STUDY: X-RAY - LUMBAR SPINE REASON FOR EXAM: Female, 71 years old. pain/injury TECHNIQUE: 2 view(s) of the lumbar spine were obtained. COMPARISON: 05/24/2021 FINDINGS: Normal lumbar lordosis. There is a levoscoliosis of the lumbar spine. There is a normal alignment of the vertebrae. Chronic mild compression fractures of L2 and L3 to treated with vertebroplasty. There is multi-level degenerative disc disease with multi-level disc space narrowing. The soft tissue structures are unremarkable. RAD/Lumbar Spine 2 or 3 Views IMPRESSION: 1. No acute fracture or subluxation. 2. Chronic compression fractures of L2 and L3 treated with vertebroplasty. 3. Moderate levoscoliosis. 4. Diffuse degenerative disc disease.. 5. Electronically Signed: Aidan Stewart MD at 13:53 EDT ,
--- NOTE | 2022-03-17 13:20 | RAD_ITS ---
STUDY: X-RAY - PELVIS AND BILATERAL HIPS REASON FOR EXAM: Female, 71 years old. pain/injury TECHNIQUE: AP view of the pelvis.? 2 views of the right hip, and 2 views of the left hip were obtained. COMPARISON: 09/18/2021 FINDINGS: There is a non-specific bowel gas pattern. Normal visualized soft tissue structures. Normal bilateral iliac wings, sacroiliac joints and visualized sacrum. Normal bilateral superior and inferior pubic rami. Normal pubic symphysis. Normal bilateral ischial tuberosities. Normal visualized right femoral head. Normal right acetabulum. Normal right hip joint. Status post left total hip arthroplasty. The prosthesis appears located. No ostial lysis to suggest loosening.. RAD/Hips B/L min 2 views w/ Pelvis IMPRESSION: No acute fracture or dislocation. Electronically Signed: Aidan Stewart MD at 14:56 EDT ,
--- NOTE | 2022-03-17 13:20 | RAD_ITS ---
STUDY: X-RAY - RIGHT SHOULDER REASON FOR EXAM: Female, 71 years old. pain/injury TECHNIQUE: 3 view(s) of the shoulder. COMPARISON: None. FINDINGS: Normal glenohumeral articulation. Normal acromioclavicular joint. Normal acromion. Normal humeral head and visualized proximal humerus. The soft tissue structures are unremarkable. Normal visualized pulmonary apex. RAD/Shoulder min 2 Views IMPRESSION: Normal x-ray examination of the shoulder. Electronically Signed: Aidan Stewart MD at 14:01 EDT ,
--- NOTE | 2022-03-17 13:20 | RAD_ITS ---
STUDY: X-RAY - RIGHT WRIST REASON FOR EXAM: Female, 71 years old. pain/injury TECHNIQUE: 3 view(s) of the wrist were obtained. COMPARISON: 02/14/2022 FINDINGS: Normal visualized distal radius and ulna. Normal radiocarpal articulation. Normal distal radioulnar articulation. Normal carpal bones. There is degenerative arthrosis of the carpal articulations. Normal carpometacarpal articulation of the thumb. Normal second through fifth carpometacarpal articulations. Normal visualized metacarpal bones. The soft tissue structures are unremarkable. RAD/Wrist min 3 Views IMPRESSION: No acute fracture or dislocation. Electronically Signed: Aidan Stewart MD at 14:00 EDT ,
--- NOTE | 2022-03-17 13:20 | RAD_ITS ---
STUDY: X-RAY - THORACIC SPINE REASON FOR EXAM: Female, 71 years old. pain/injury TECHNIQUE: 3 view(s) of the thoracic spine were obtained. COMPARISON: None. FINDINGS: Normal kyphosis of the thoracic spine. Moderate dextroscoliosis of the lower thoracic spine. No change in the moderate loss of height of the T12 vertebral body consistent with a chronic compression fracture. Normal disc space heights. The soft tissue structures are unremarkable. RAD/Thoracic Spine 2 Views IMPRESSION: No acute fracture or subluxation. Electronically Signed: Aidan Stewart MD at 14:42 EDT ,
[2022-03-17] MEDS: Ondansetron ODT 4 MG Tablet 8 MG PO (13:31)
[2022-03-17] MEDS: Morphine 4 MG/ML Syringe IM (13:32)
[2022-03-17 14:06] VITALS: BP 142/66; PULSE 64; RESP 16; O2SAT 98
[2022-03-17 15:53] VITALS: BP 128/79; PULSE 66; RESP 14; TEMP 37; O2SAT 98
== END 2022-03-17 16:00 | disposition home or self-care (01) ==
PROVIDERS: Emergency Provider Emergency Medicine; PCP Internal Medicine; Visit Provider Emergency Medicine
DX: S82.65XA Nondisplaced fracture of lateral malleolus of left fibula, initial encounter for closed fracture (principal); M54.50 Low back pain, unspecified; M25.511 Pain in right shoulder; M25.521 Pain in right elbow; M25.531 Pain in right wrist; M25.561 Pain in right knee; T14.8XXA Other injury of unspecified body region, initial encounter; W18.30XA Fall on same level, unspecified, initial encounter; Y92.000 Kitchen of unspecified non-institutional (private) residence as the place of occurrence of the external cause; E78.5 Hyperlipidemia, unspecified; I10 Essential (primary) hypertension; G89.29 Other chronic pain; E03.9 Hypothyroidism, unspecified; M81.0 Age-related osteoporosis without current pathological fracture; Z79.890 Hormone replacement therapy; Z79.1 Long term (current) use of non-steroidal anti-inflammatories (NSAID)
CPT/HCPCS: 72070; 72100; 73030; 73080; 73110; 73521; 73564; 73610; 96372; 99285

== ENCOUNTER 2022-03-25 11:40 | Emergency (ER) | payer MEDICARE, OTHER, SELFPAY ==
[2022-03-25 11:41] VITALS: BP 130/90; PULSE 77; RESP 18; TEMP 36.6; O2SAT 96; BMI 31.1
--- NOTE | 2022-03-25 12:29 | CT_ITS ---
STUDY: CT CERVICAL SPINE WITHOUT CONTRAST REASON FOR EXAM: Female, 71 years old. Pain, fall RADIATION DOSAGE (If Supplied By Facility): CTDIvol = ( 19.43 ) mGy, DLP = ( 399.12 ) mGycm TECHNIQUE: High resolution transaxial imaging was performed without contrast material. Sagittal and coronal images were reconstructed. Individualized dose optimization techniques were used for this CT. COMPARISON: None FINDINGS: Normal craniovertebral junction. There are degenerative changes of the anterior atlantoaxial articulation. Normal odontoid process. Normal cervical lordosis. Normal vertebral bodies and posterior osseous elements. C2-3: Minimal anterior listhesis of C2 on C3 most likely secondary to the facet joint osteoarthritis. C3-4: Mild anterior listhesis of C3 on C4. Facet joint osteoarthritis and hypertrophy on the left side. Uncovertebral arthrosis. C4-5: Normal endplates. Normal disc height and morphology. Normal central canal and intervertebral neuroforamina. C5-6: Marked degree of disc space narrowing. Spondylosis. Uncovertebral arthrosis. No significant stenosis seen. C6-7: Marked degree of disc space narrowing. No significant stenosis is seen. C7-T1: Normal endplates. Normal disc height and morphology. Normal central canal and intervertebral neuroforamina. Normal visualized soft tissue structures. CT/Spine Cervical without Contras IMPRESSION: Multilevel degenerative changes, as described above. Electronically Signed: Chin Bell MD at 13:06 EDT ,
--- NOTE | 2022-03-25 12:29 | CT_ITS ---
STUDY: CT BRAIN WITHOUT CONTRAST REASON FOR EXAM: Female, 71 years old. Headache, fall RADIATION DOSAGE (If Supplied By Facility): CTDIvol = ( 44.99 ) mGy, DLP = ( 745.49 ) mGycm TECHNIQUE: Transaxial CT imaging of the brain was performed without administration of intravenous contrast material. Individualized dose optimization techniques were used for this CT. COMPARISON: Comparison is made with prior study dated 06/06/2017. FINDINGS: Normal soft tissue structures. Normal calvarium. Normal size ventricles and extra-axial spaces for the patient''s age. Normal white matter tracts of the cerebral hemispheres. Normal basal ganglia and thalami. Normal brainstem. Normal cerebellum. There is no intracranial hemorrhage. There are no findings of an acute ischemic infarction. Atherosclerotic calcification of the vertebral arteries and cavernous portions of the internal carotid arteries bilaterally. Normal visualized paranasal sinuses. CT/Brain/Head without Contrast IMPRESSION: Normal unenhanced CT scan of the brain. Electronically Signed: Chin Bell MD at 13:03 EDT ,
--- NOTE | 2022-03-25 14:00 | EDS_ITS ---
HPI History of Present Illness Chief Complaint: Fall Informant: patient Onset/Context/Timing Onset: Days Current Severity: Mild Maximum Severity: Moderate Narrative Narrative: Patient presents secondary to headache. She fell 8 days ago. She was seen in the emergency room and had x-rays of her back and multiple extremities. She states since her fall she has been dizzy but 4 days ago also developed a headache with increasing neck pain. She is not on anticoagulants. [facility] Medical History Acute right flank pain Closed fracture of left proximal humerus Depression Essential (primary) hypertension Fracture of talus of left ankle, closed History of cataract History of gastroesophageal reflux (GERD) Hyperlipidemia Hypothyroidism Left ankle strain Osteoporosis Paroxysmal SVT (supraventricular tachycardia) Sacro-iliac pain Home Medications bupropion HCl 150 mg PO DAILY 09/24/16 [History Last Taken 01/08/19 150 MG] citalopram 40 mg PO QHS 09/24/16 [History Last Taken 01/08/19 40 MG] levothyroxine 50 mcg PO DAILY 09/24/16 [History Last Taken 01/08/19 50 MCG] pantoprazole 40 mg PO QHS 09/24/16 [History Last Taken 01/08/19 40 MG] alprazolam 0.5 mg PO QHS 12/09/16 [History Last Taken 01/08/19 0.5 MG] acetaminophen 1,300 mg PO PRN PRN 09/28/18 [History Last Taken 01/08/19 1300 MG] buspirone 15 mg PO DAILY 09/28/18 [History Last Taken 01/08/19 15 MG] meloxicam 15 mg PO DAILY 09/28/18 [History Last Taken 01/08/19 15 MG] tizanidine 4 mg PO QHS 09/28/18 [History Last Taken 01/08/19 4 MG] turmeric 400 mg capsule 400 mg PO DAILY cap 11/26/20 [History Last Taken Unknown] biotin 5 mg capsule 5 mg PO DAILY 01/31/21 [History Last Taken Unknown] cholecalciferol (vitamin D3) 125 mcg (5,000 unit) tablet 125 mcg PO DAILY 01/31/21 [History Last Taken Unknown] fexofenadine 180 mg tablet 180 mg PO DAILY 01/31/21 [History Last Taken Unknown] magnesium 250 mg tablet 250 mg PO DAILY 01/31/21 [History Last Taken Unknown] multivit with cogvbkqj-xiee-FM-lutein 8 mg iron-400 mcg-300 mcg tablet 1 tablet PO DAILY 01/31/21 [History Last Taken Unknown] hydrocodone 7.5 mg-acetaminophen 325 mg tablet 1 tab PO TID PRN tab 10/01/21 [History Last Taken Unknown] methylprednisolone 4 mg tablets in a dose pack 4 mg PO DAILY #21 tab 02/14/22 [Rx Last Taken Unknown] pregabalin 75 mg capsule mg PO BID cap 02/14/22 [History Last Taken Unknown] zoledronic acid 5 mg/100 mL in mannitol 5 %-water intravenous piggybck ea .ROUTE 02/14/22 [History Last Taken Unknown] metoprolol succinate 25 mg tablet,extended release 24 hr 25 mg PO DAILY #90 tab 02/17/22 [Rx Last Taken Unknown] Allergy/AdvReac Type Severity Reaction Status Date / Time latex Allergy COUGHING Verified 03/25/22 11:42 AND SORE THROAT Family History Father , Age 43 Hodgkins disease Sister Osteoporosis Mother Myocardial infarction Other Hypertension Surgical History History of appendectomy History of bladder suspension procedure History of bunionectomy History of cataract extraction History of hysterectomy History of lumbar laminectomy (09/2019) History of radiofrequency ablation procedure for cardiac arrhythmia (08/07/21) History of right oophorectomy History of total left hip arthroplasty Social History household members: spouse Smoking Status: Never smoker alcohol intake: current alcohol intake frequency: a few times a month Alcohol type: wine substance use type: does not use caffeine: Yes Type: coffee Number of servings: 2 what type of physical activity do you participate in: none ROS ROS ED Constitutional Constitutional ED: Denies chills or fever(s) Eyes Eyes: Denies change in vision ENT ENT ED: Denies sore throat Cardiovascular Cardiovascular: Denies chest pain Respiratory/Chest Respiratory/Chest: Denies cough or dyspnea Gastrointestinal Gastrointestinal: Denies abdominal pain, diarrhea, nausea or vomiting Genitourinary Genitourinary ED: Denies dysuria Musculoskeletal Musculoskeletal: Reports neck pain; Denies back pain Integumentary Denies rash Neurologic Neurologic: Reports headache(s); Denies weakness Allergic/Immunologic Allergic/Immunologic ED: Denies urticaria EXAM Physical Exam Const Vital Signs: 03/25/22 11:41 Temperature 98 F Temperature Source Temporal Pulse Rate 77 Respiratory Rate 18 Blood Pressure 130/90 H Blood Pressure Mean 103 Pulse Ox 96 Oxygen Delivery Method Room Air Positive well nourished and well developed General Appearance ED: well developed HEENT Reports moist mucous membranes Eyes PERRL and EOMs intact bilaterally Neck supple Neck Narrative: Muscular tenderness in the cervical paraspinal muscles. Chest Wall inspection of chest normal and palpation of chest normal Resp normal respiratory effort and clear to auscultation bilaterally Cardio regular rate and regular rhythm GI non-tender Palpation: soft Extremity Extremity Narrative: Left foot in walking boot. Other extremities all unremark able full range of motion and good strength. Neuro oriented x3 Sensorium / Orientation: alert Psych mental status grossly normal Skin no rashes or lesions noted MDM MDM MDM Narrative Medical decision making narrative: Patient sent for CT scan of the head and C- spine. Radiography Diagnostic Testing: Clinical Impression(s) from Imaging Studies Brain CT 03/25/22 12:29 IMPRESSION: Normal unenhanced CT scan of the brain. Electronically Signed: Chin Bell MD at 13:03 EDT , Cervical Spine CT 03/25/22 12:29 IMPRESSION: Multilevel degenerative changes, as described above. Electronically Signed: Chin Bell MD at 13:06 EDT , Treatment and Re-Evaluation Narrative: Test results discussed with patient and at bedside. CT scans are unremarkable. Patient is reassured with these findings. I advised her she likely either has a concussion from the fall or developed tension headache from the muscle spasms in her back and neck. She is comfortable with continued supportive care. Return instructions provided. Discharge Plan Triage Chief Complaint: Fall ED Provider: Tanya Aceves Dx/Rx/DC Orders Clinical Impression: Closed head injury, Neck strain Instructions: ED Head Injury (Adult), ED Neck Sprain or Strain Prescriptions: No Action turmeric 400 mg capsule 400 mg PO DAILY RF: 0 cholecalciferol (vitamin D3) 125 mcg (5,000 unit) tablet 125 mcg PO DAILY RF: 0 magnesium 250 mg tablet 250 mg PO DAILY RF: 0 biotin 5 mg capsule 5 mg PO DAILY RF: 0 Centrum Silver Women 8 mg iron-400 mcg-300 mcg tablet 1 tablet PO DAILY RF: 0 fexofenadine [Alvina Allergy] 180 mg tablet 180 mg PO DAILY RF: 0 pregabalin 75 mg capsule PO BID RF: 0 zoledronic oxmw-pruialrn-dpnvs [Reclast] 5 mg/100 mL piggyback .Route RF: 0 methylprednisolone [Medrol (You)] 4 mg tablets,dose pack 4 mg PO DAILY Qty: 21 RF: 0 citalopram 40 MG tablet 40 mg PO QHS RF: 0 levothyroxine 50 MCG tablet 50 mcg PO DAILY RF: 0 pantoprazole 40 MG tablet 40 mg PO QHS RF: 0 bupropion HCl 150 MG tablet extended release 12 hr 150 mg PO DAILY RF: 0 alprazolam 0.5 MG tablet 0.5 mg PO QHS RF: 0 tizanidine 4 MG tablet 4 mg PO QHS RF: 0 meloxicam 15 MG tablet 15 mg PO DAILY RF: 0 acetaminophen 650 MG tablet extended release 1,300 mg PO PRN PRN (Reason: Pain) RF: 0 buspirone 15 MG tablet 15 mg PO DAILY RF: 0 hydrocodone-acetaminophen 7.5-325 mg tablet 1 tab PO TID PRN (Reason: Pain) RF: 0 metoprolol succinate 25 mg tablet extended release 24 hr 25 mg PO DAILY Qty: 90 RF: 3 Primary Care Provider: Carmel Goncalves Referrals: Carmel Goncalves MD [Primary Care Provider] - 1 Week Disposition Disposition: Home, Self Care Discharge Date/Time: 03/25/22 14:16
== END 2022-03-25 14:16 | disposition home or self-care (01) ==
PROVIDERS: Emergency Provider Emergency Medicine; PCP Internal Medicine; Visit Provider Emergency Medicine
DX: S09.90XA Unspecified injury of head, initial encounter (principal); I47.1 Supraventricular tachycardia; S16.1XXA Strain of muscle, fascia and tendon at neck level, initial encounter; I10 Essential (primary) hypertension; W19.XXXA Unspecified fall, initial encounter; E78.5 Hyperlipidemia, unspecified; E03.9 Hypothyroidism, unspecified; M81.0 Age-related osteoporosis without current pathological fracture; Z79.890 Hormone replacement therapy; Z79.899 Other long term (current) drug therapy
CPT/HCPCS: 70450; 72125; 99282

== ENCOUNTER 2022-11-19 22:32 | Emergency (ER) | payer MEDICARE, OTHER, SELFPAY ==
[2022-11-19 22:34] VITALS: BP 83/51; PULSE 70; RESP 15; TEMP 36.1; O2SAT 96; BMI 29.7
--- NOTE | 2022-11-19 22:46 | EKG12_ITS ---
Test Reason : HYPOTENSION Blood Pressure : / mmHG Vent. Rate : 061 BPM Atrial Rate : 061 BPM P-R Int : 198 ms QRS Dur : 088 ms QT Int : 438 ms P-R-T Axes : 050 -34 -26 degrees QTc Int : 440 ms Normal sinus rhythm Left axis deviation Possible Lateral infarct , age undetermined T wave abnormality, consider anterior ischemia Abnormal ECG Confirmed by GOYO CONNELL, STEPHANIE ([id number]), assignment editor ANY RAMIREZ ([id number]) on 11/21/2022 10:15:47 AM Referred By: Confirmed By:STEPHANIE NANCE MD
--- NOTE | 2022-11-19 22:47 | EX.ED.DYSGE1 ---
HPI History of Present Illness Chief Complaint: Hypotension Informant: patient and spouse/S.O. Onset/Context/Timing Onset: Today Narrative Narrative: Patient presents secondary low blood pressure and dizziness. She states she was feeling lightheaded and dizzy at home. She tried to check her blood pressure but the machine errored and would not read. She states her systolic blood pressure usually runs in the 130s. She is currently on 12.5 mg of metoprolol at bedtime. There has been no recent changes to her medication and she did take it this evening. She states that she did get some abdominal cramping after eating a fish sandwich for dinner and did have some diarrhea. She is not sure if she is just dehydrated. She states she has had low blood pressure the past when she went into SVT, but does not feel as if her heart is racing at this time. [facility] Medical History Acute right flank pain Allergic rhinitis Anxiety Bloating Cervical disc herniation Closed fracture of left proximal humerus Depression Diarrhea Diverticulosis Dysmetabolic syndrome Epigastric pain Essential (primary) hypertension Fibromyalgia Fracture of talus of left ankle, closed GERD (gastroesophageal reflux disease) History of cataract History of gastroesophageal reflux (GERD) Hyperlipidemia Hypothyroidism Internal hemorrhoids Left ankle strain Medullary sponge kidney Osteoporosis Paroxysmal SVT (supraventricular tachycardia) Sacro-iliac pain Home Medications citalopram 40 mg tablet 40 mg PO QHS depression 09/24/16 [History Last Taken 01/08/19 40 MG] levothyroxine 50 mcg tablet 50 mcg PO DAILY thyroid 09/24/16 [History Last Taken 01/08/19 50 MCG] pantoprazole 40 mg tablet,delayed release 40 mg PO QHS gerd 09/24/16 [History Last Taken 01/08/19 40 MG] alprazolam 0.5 mg tablet 0.5 mg PO QHS 12/09/16 [History Last Taken 01/08/19 0.5 MG] acetaminophen 650 mg tablet,extended release 1,300 mg PO PRN PRN Pain 09/28/18 [History Last Taken 01/08/19 1300 MG] buspirone 15 mg tablet 15 mg PO DAILY depression/anxiety 09/28/18 [History Last Taken 01/08/19 15 MG] tizanidine 4 mg tablet 4 mg PO QHS muscle spasms 09/28/18 [History Last Taken 01/08/19 4 MG] turmeric 400 mg capsule 400 mg PO DAILY 11/26/20 [History Last Taken Unknown] biotin 5 mg capsule 5 mg PO DAILY 01/31/21 [History Last Taken Unknown] cholecalciferol (vitamin D3) 125 mcg (5,000 unit) tablet 125 mcg PO DAILY 01/31/21 [History Last Taken Unknown] multivit with zumhsiyn-nvds-PO-lutein 8 mg iron-400 mcg-300 mcg tablet (Centrum Silver Women) 1 tablet PO DAILY 01/31/21 [History Last Taken Unknown] zoledronic acid 5 mg/100 mL in mannitol 5 %-water intravenous piggybck (Reclast) ea .Route 02/14/22 [History Last Taken Unknown] metoprolol succinate 25 mg tablet,extended release 24 hr 25 mg PO DAILY #90 tabs 02/17/22 [Rx Last Taken Unknown] hydrocodone-acetaminophen 5-325mg 5mg-325mg 1 tab PO TID PRN 04/11/22 [History Last Taken Unknown] pregabalin 75 mg capsule 75 mg PO DAILY 04/11/22 [History Last Taken Unknown] lidocaine 4 % topical patch 1 patch topical DAILY PRN 06/02/22 [History Last Taken Unknown] meloxicam 15 mg tablet 15 mg PO DAILY 11/14/22 [History Last Taken Unknown] Allergy/AdvReac Type Severity Reaction Status Date / Time latex Allergy COUGHING Verified 11/19/22 22:38 AND SORE THROAT Family History Father , Age 43 Hodgkins disease Sister Osteoporosis Mother Myocardial infarction Other Hypertension Surgical History History of appendectomy History of bladder suspension procedure History of bunionectomy History of cataract extraction History of hysterectomy History of lumbar laminectomy (09/2019) History of radiofrequency ablation procedure for cardiac arrhythmia (08/07/21) History of right oophorectomy History of total left hip arthroplasty Social History household members: spouse Smoking Status: Never smoker alcohol intake: current alcohol intake frequency: a few times a month Alcohol type: wine substance use type: does not use caffeine: Yes Type: coffee Number of servings: 2 what type of physical activity do you participate in: none ROS ROS ED Constitutional Constitutional ED: Denies chills or fever(s) Eyes Eyes: Denies change in vision or discharge from eye(s) ENT ENT ED: Denies discharge from eye(s), rhinorrhea or sore throat Cardiovascular Cardiovascular: Denies chest pain or palpitations Respiratory/Chest Respiratory/Chest: Denies cough or dyspnea Gastrointestinal Gastrointestinal: Reports diarrhea; Denies abdominal pain, nausea or vomiting Genitourinary Genitourinary ED: Denies difficulty urinating or dysuria Musculoskeletal Musculoskeletal: Reports back pain; Denies extremity pain Integumentary Denies Abrasions or rash Neurologic Neurologic: Denies headache(s) or weakness Psychiatric Psychiatric: Denies anxiety or depression Allergic/Immunologic Allergic/Immunologic ED: Denies lip swelling or urticaria EXAM Physical Exam Const Vital Signs: 11/19/22 22:34 11/19/22 23:04 11/20/22 00:04 Temperature 97.0 F L Temperature Source Temporal Pulse Rate 70 Respiratory Rate 15 Respiratory Effort Normal Respiratory Pattern Normal Blood Pressure 83/51 L 95/57 L Blood Pressure Mean 61 69 Pulse Ox 96 Oxygen Delivery Method Room Air 11/20/22 01:05 11/20/22 02:09 Temperature Temperature Source Pulse Rate 62 60 Respiratory Rate 18 16 Respiratory Effort Respiratory Pattern Blood Pressure 117/47 L 110/84 H Blood Pressure Mean 70 92 Pulse Ox 97 93 Oxygen Delivery Method Room Air Room Air Positive well nourished and well developed General Appearance ED: well developed HEENT Reports normocephalic and head/scalp atraumatic Eyes PERRL and EOMs intact bilaterally Neck supple Chest Wall inspection of chest normal and palpation of chest normal Resp normal respiratory effort and clear to auscultation bilaterally Cardio regular rate and regular rhythm GI normal to inspection, nondistended, normoactive bowel sounds Palpation: soft Extremity normal to inspection Neuro oriented x3 and no sensory deficits noted Sensorium / Orientation: alert Motor Exam: strength 5/5 throughout Psych mental status grossly normal Skin no rashes or lesions noted MDM MDM MDM Narrative Medical decision making narrative: Patient is placed on quality assurance monitor final. IV fluid bolus initiated given her hypotension. CBC and chemistry studies obtained to evaluate for leukocytosis, anemia, electrolyte derangement. Urinalysis obtained to evaluate hydration status or infection. Lab Data Attestation: I reviewed the patient's lab results. Labs: Laboratory Results - last 24 hr 11/19/22 11/19/22 11/20/22 22:55 22:55 00:56 WBC 6.5 RBC 3.72 L Hgb 10.8 L Hct 35.1 L MCV 94.4 MCH 29.0 MCHC 30.8 L RDW Std Deviation 46.8 H RDW Coeff of Garret 13.3 Plt Count 315 MPV 9.6 Immature Gran % (Auto) 0.200 Neut % (Auto) 48.5 Lymph % (Auto) 38.1 [place] % (Auto) 10.3 H Eos % (Auto) 2.0 Baso % (Auto) 0.9 Absolute Neuts (auto) 3.2 Absolute Lymphs (auto) 2.48 Nucleated RBC % 0 Sodium 139 Potassium 3.9 Chloride 107 Carbon Dioxide 27.0 Anion Gap 5 BUN 18 Creatinine 1.31 H Estim Creat Clear Calc 40.86 Est GFR (MDRD) Af Amer 51 L Est GFR (MDRD) Non-Af 42 L BUN/Creatinine Ratio 13.7 Glucose 92 Calcium 8.5 Troponin I High Sens 6 Urine Color Yellow Urine Clarity Clear Urine pH 6.5 Ur Specific [place] 1.010 Urine Protein 30 H Urine Glucose (UA) Normal Urine Ketones Negative Urine Occult Blood Negative Urine Nitrite Negative Urine Bilirubin Negative Urine Urobilinogen Normal Ur Leukocyte Esterase 25 H Urine RBC 0 SEEN Urine WBC 0-5 SEEN Ur Squamous Epith Cells 0-5 SEEN Urine Bacteria RARE Urine Mucus 0 SEEN Radiography Diagnostic Testing: Clinical Impression(s) from Imaging Studies Chest/Abdomen/Pelvis CTA 11/20/22 23:52 IMPRESSION: Tortuous aorta without dissection or aneurysmal dilatation. Stable right-sided peripelvic cyst. Moderate atrophy left kidney. Interval visualization of a masslike density in the left side of the pelvis for which further evaluation is warranted with cystogram and/or cystoscopy. This measures approximately 1.7 x 1.5 cm and should be considered suspicious for neoplasm until proven otherwise. Recommend correlation with urinary laboratory values. Scoliosis degenerative change status post kyphoplasty Status post left hip arthroplasty. Status post hysterectomy. Nonspecific bowel gas pattern diverticulosis no diverticulitis. Left lower lobe atelectasis left lingular atelectasis possibly associated with a large persistent hiatal hernia with the stomach in the chest. Normal contrast-enhanced CT of the chest. Normal contrast-enhanced CT of the abdomen and pelvis. Electronically Signed: Telma Long MD at 1:43 EST , EKG Initial EKG: Attestation: I personally reviewed and interpreted this EKG as follows: Interpretation: Sinus Rhythm (Sinus at 61 with no acute ischemia. Nonspecific T wave flattening throughout.) Treatment and Re-Evaluation Narrative: CBC and chemistry studies are remarkable only for a creatinine of 1.31. Prior creatinine from 15 months ago was 1.01. Urinalysis does not reveal significant ketones. After 1 L IV fluid systolic pressure still in the 90s. Second liter of IV fluids are given. Patient had mentioned to me that she been having some low back pain consistent with sciatica recently. She told nursing staff that the pain was between her shoulder blades. Given this and her hypotension she was sent for CTA of the chest, abdomen, and pelvis to rule out dissection. CTA reveals no evidence of dissection or pulmonary embolism. She does have a masslike density noted in the left pelvis and cystoscopy is recommended for further evaluation. This was discussed with patient and at bedside. I will refer her to Dr. Guzman for follow-up. At this time systolic blood pressure is 125. She is able to get up and ambulate in the emergency room without difficulty. I will ask her to hold her metoprolol if her blood pressure is not above 130 systolic. She is to keep a journal of her blood pressure readings and take this to her next doctor's appointment. Discharge Plan Triage Chief Complaint: Hypotension ED Provider: Tanya Aceves Dx/Rx/DC Orders Clinical Impression: Hypotension, Pelvic mass in female Instructions: Blood Pressure Check Steps, ED Low Blood Pressure, All Causes Prescriptions: No Action turmeric 400 mg capsule 400 mg PO DAILY cholecalciferol (vitamin D3) 125 mcg (5,000 unit) tablet 125 mcg PO DAILY biotin 5 mg capsule 5 mg PO DAILY Centrum Silver Women 8 mg iron-400 mcg-300 mcg tablet 1 tablet PO DAILY zoledronic giyx-qdlygeie-cblsq [Reclast] 5 mg/100 mL piggyback .Route Rx Instructions: Once a year infusion pregabalin 75 mg capsule 75 mg PO DAILY hydrocodone-acetaminophen 5-325 mg tablet 1 tab PO TID PRN lidocaine 4 % adhesive patch,medicated 1 patch topical DAILY PRN meloxicam 15 mg tablet 15 mg PO DAILY citalopram 40 MG tablet 40 mg PO QHS levothyroxine 50 MCG tablet 50 mcg PO DAILY pantoprazole 40 MG tablet 40 mg PO QHS alprazolam 0.5 MG tablet 0.5 mg PO QHS tizanidine 4 MG tablet 4 mg PO QHS acetaminophen 650 MG tablet extended release 1,300 mg PO PRN PRN (Reason: Pain) buspirone 15 MG tablet 15 mg PO DAILY metoprolol succinate 25 mg tablet extended release 24 hr 25 mg PO DAILY Qty: 90 3RF Primary Care Provider: Carmel Goncalves Referrals: Tara Guzman MD [Med Staff - Active Staff] - As soon as possible Carmel Goncalves MD [Primary Care Provider] - 1 Week Activity Restrictions/Additional Instructions: Please check your blood pressure couple times a day and keep a journal to take your next doctor's appointment. If your systolic blood pressure is not above 130, please hold your metoprolol and document this. As discussed, your CT scan revealed a masslike density in your pelvis. Please follow-up with Dr. Guzman for further testing. Disposition Disposition: Home, Self Care
[2022-11-19 23:02] LABS: Absolute Lymphocyte Count 2.48 X10^3/uL (0.83-4.51); Absolute Neutrophil Count 3.2 X10^3/uL (2.0-7.7); Basophil# 0.06 X10^3/uL; Basophil% 0.9 % (0-1); Eosinophil# 0.13 X10^3/uL; Hematocrit 35.1 % (37-47); Hemoglobin 10.8 g/dL (12.0-15.0); Lymphocyte # 2.48 X10^3/ul (0.83-4.51); Lymphocyte % 38.1 % (19-41); Mean Corp Hgb Conc 30.8 g/dL (32-36); Mean Corpuscular Volume 94.4 fL (81-99); Mean Platelet Vol. 9.6 fl (6.2-12.0); Monocyte# 0.67 X10^3/uL; Monocyte% 10.3 % (0-10); NRBC Flagged by Analyzer 0 % (0-5); Neutrophil # 3.16 X10^3/uL (2.7-7.7); Neutrophil % 48.5 % (47-70); Platelet Count 315 K/mm3 (150-450); RBC Distribution Width CV 13.3 % (11.6-14.6); RBC Distribution Width SD 46.8 fl (35.1-43.9); Red Blood Count 3.72 M/mm3 (4.2-5.4); White Blood Count 6.5 K/mm3 (4.4-11.0)
[2022-11-19] MEDS: 0.9% Normal Saline 1,000 ML 1000 ML IV (23:06)
[2022-11-19 23:20] LABS: Anion Gap 5 (5-15); BUN 18 mg/dL (7-18); BUN/Creat Ratio 13.7 RATIO (10-20); Calcium,Total 8.5 mg/dL (8.5-10.1); Chloride 107 mmol/L (98-107); Creatinine, Serum 1.31 mg/dL (0.55-1.02); EST Glomerular Filtration Rate 42 mL/min (>60); Est Glom Filt Rate - Afr Amer 51 mL/min (>60); Estimated Creatinine Clearance 40.86 ml/min; Glucose 92 mg/dL (74-106); Potassium 3.9 mmol/L (3.5-5.1); Sodium Level 139 mmol/L (136-145); Troponin-I HS 6 pg/mL (3.0-54.0)
[2022-11-19] MEDS: 0.9% Normal Saline 1,000 ML 999 ML IV (23:52)
[2022-11-20 00:04] VITALS: BP 95/57
[2022-11-20 01:04] LABS: Mucous, Urine 0 SEEN /hpf (<or=2+); Red Blood Cells-Urine 0 SEEN /hpf (0-5)
[2022-11-20 01:05] VITALS: BP 117/47; PULSE 62; RESP 18; O2SAT 97
[2022-11-20 01:07] LABS: Color, Urine Yellow (Yellow); Glucose, Dipstick Normal (Normal); Ketone-Dipstick Negative (Negative); Leukocyte Esterase-Dipstick 25 /ul (Negative); Nitrite-Dipstick Negative (Negative); Occult Blood-Urine Negative /ul (Negative); Protein-Dipstick 30 mg/dl (Negative); Urine Bilirubin Dipstick Negative (Negative); Urine Clarity Clear (Clear); Urine Urobilinogen Normal (Normal); Urine pH 6.5 (5.0 - 8.0)
[2022-11-20 01:13] LABS: Bacteria RARE /hpf (None Seen); Squamous Epithelial Cells - UA 0-5 SEEN /hpf (5-10); White Blood Cells 0-5 SEEN /hpf (0-5)
[2022-11-20 02:09] VITALS: BP 110/84; PULSE 60; RESP 16; O2SAT 93
[2022-11-20 02:36] VITALS: BP 125/74; PULSE 68; RESP 15; O2SAT 98
[2022-11-20 03:01] VITALS: BP 125/74; PULSE 68; RESP 15; O2SAT 98
--- NOTE | 2022-11-20 23:52 | CT_ITS ---
INDICATION: back pain, hypotension EXAMINATION: CTA CHEST, ABDOMEN AND PELVIS WITH CONTRAST - TECHNIQUE: A CTA of the chest, abdomen, and pelvis is obtained with sagittal and coronal reconstructed MIP views. Three-dimensional surface rendered sequence of the thoracic and abdominal aorta was obtained. A radiation dose optimization technique was used for this scan. 100 mL mL of Isovue-[id number]. Oral contrast: None. COMPARISON: Chest x-ray September 01, 2021, CT abdomen and pelvis April 13, 2021 FINDINGS: CT CHEST: THORACIC AORTA: Aorta is tortuous minimally calcified ABDOMINAL AORTA: No aneurysm or dissection. No significant atheromatous disease. The iliac arteries are unremarkable. There is tortuosity. There is minimal plaque formation. LUNGS: There is visualized right lower lobe atelectasis. There is a small focus of left lower lobe chronic appearing consolidation or atelectasis adjacent to a sizable left side hydroureter hernia with a persistent somewhat tortuous appearance. This is relatively stable in appearance when compared to the prior study. MEDIASTINUM: The thyroid gland is normal. No mediastinal or hilar adenopathy. HEART: Heart is normal size. No pericardial effusion. No coronary artery calcifications are visualized. CT ABDOMEN AND PELVIS: LIVER: The liver enhances homogeneously. No masses identified. GALLBLADDER: The CBD is normal. Normal gallbladder. SPLEEN: Normal. PANCREAS: No masses or inflammation. ADRENAL GLANDS: Normal. KIDNEYS AND URETERS: There are persistent multiple peripelvic renal cysts. There is mild distention of the right ureter without visualized stone. There is a focal density within the left side of the bladder measures approximately 1.7 x 1.5 cm best seen on image #400 series 2 and image 176 series 601. There is left renal atrophy. There is mild distention of the left ureter. The aforementioned density is just anterior to the insertion of the left ureter. There are several small left-sided perinephric cyst. STOMACH: Has a large hiatal hernia. The stomach is in the chest. SMALL BOWEL: No abnormal distention of the small bowel. MESENTERY: There are a few nonspecific subcentimeter mesenteric lymph nodes. COLON: There is a mild amount of stool in the colon. There is diverticulosis without diverticulitis. The colon otherwise is normal. There is a large fatty ileocecal valve. APPENDIX: The appendix is not seen with certainty. IVC: Normal. RETROPERITONEUM: No retroperitoneal lymphadenopathy. PELVIC STRUCTURES: There is a masslike density in the left side of the bladder measuring at least 1.7 x 1.5 cm for which further evaluation is warranted. The uterus is been removed. SOFT TISSUES ABDOMEN: The anterior abdominal wall is normal. SOFT TISSUE CHEST: The extrathoracic soft tissues are normal. BONES: There is visualized dextroscoliosis of the thoracic spine. There is levoscoliosis of the lumbar spine. There is been a kyphoplasty performed at L3 and L2. There is slight loss of height. There is a visualized left hip arthroplasty. CT/CTA Chst, Abd, Pel W and/or WO IMPRESSION: Tortuous aorta without dissection or aneurysmal dilatation. Stable right-sided peripelvic cyst. Moderate atrophy left kidney. Interval visualization of a masslike density in the left side of the pelvis for which further evaluation is warranted with cystogram and/or cystoscopy. This measures approximately 1.7 x 1.5 cm and should be considered suspicious for neoplasm until proven otherwise. Recommend correlation with urinary laboratory values. Scoliosis degenerative change status post kyphoplasty Status post left hip arthroplasty. Status post hysterectomy. Nonspecific bowel gas pattern diverticulosis no diverticulitis. Left lower lobe atelectasis left lingular atelectasis possibly associated with a large persistent hiatal hernia with the stomach in the chest. Normal contrast-enhanced CT of the chest. Normal contrast-enhanced CT of the abdomen and pelvis. Electronically Signed: Telma Long MD at 1:43 EST ,
== END 2022-11-20 03:02 | disposition home or self-care (01) ==
PROVIDERS: Emergency Provider Emergency Medicine; PCP Internal Medicine; Visit Provider Emergency Medicine
DX: I95.9 Hypotension, unspecified (principal); E78.5 Hyperlipidemia, unspecified; I10 Essential (primary) hypertension; R19.00 Intra-abdominal and pelvic swelling, mass and lump, unspecified site; R42 Dizziness and giddiness; R19.7 Diarrhea, unspecified
CPT/HCPCS: 71275; 74174; 80048; 81001; 84484; 85025; 93005; 96360; 96361; 99284; J7030; Q9967; A4216

== ENCOUNTER → 2022-12-19 | Outpatient (CLI) | payer MEDICARE, OTHER, SELFPAY ==
--- NOTE | 2022-12-19 16:30 | CYSPIN_PTH ---
PATIENT: TANGELA BENÍTEZ LOC: [facility] U#:[id number] AGE/SX: 72/F ROOM: RE12/19/[address]: Dr. Tara Guzman MD : 1950 BED: DIS: 12/19/2022 SPEC #: [id number] RECD: 12/22/22 07:47 STATUS: MOO SAN #: [id number] LAURA: 12/19/22 16:[address]: Tara Guzman DEPT: CYTOLOGY RECD BY: Lorene Lei Tissues: Urine Procedures: Pap Stain (control) Special Stain Group II Cytospin Fluid HEADER OPERATION: Not noted PRE-OP DIAGNOSIS: Gross hematuria TISSUE SUBMITTED: Urine for cytology DIAGNOSIS CYTOLOGY Urine for cytology (cytospin): Negative for high-grade urothelial carcinoma (NHGUC), Erica System Category II. See comment. CHANA:nirav 12/22/2022 COMMENT Red blood cells are noted. The Erica System for urine cytology diagnostic categorization was used in the evaluation of this case. CYTOLOGY STUDY Slides are reviewed. CYTOLOGY GROSS Received is 40 ml of yellow cloudy fluid labeled with the patient's name and and designated per the requisition as urine. Submitted for cytology preparation. / nirav 12/19/2022 TC:5 CPT: 18417
[2022-12-19 17:52] LABS: Cytology, Body Fluid / CSF SEE PATHOLOGY REPORT
== END | disposition home or self-care (01) ==
PROVIDERS: Visit Provider Urology
DX: R31.0 Gross hematuria (principal)
CPT/HCPCS: 88108; 88313

== ENCOUNTER → 2023-01-01 | Outpatient (CLI) | payer MEDICARE, OTHER, SELFPAY ==
--- NOTE | 2023-01-01 14:17 | CT_ITS ---
STUDY: CT ABDOMEN AND PELVIS WITH AND WITHOUT CONTRAST REASON FOR EXAM: Female, 72 years old. BLADDER NEOPLASM. History of medullary sponge kidney. RADIATION DOSAGE (If Supplied By Facility): CTDIvol = ( 19.77 ) mGy, DLP = ( 2770.74 ) mGycm TECHNIQUE: Transaxial images were obtained from the dome of the diaphragm to the symphysis pubis without oral contrast. IV 100mL Isovue-370 was administered. Sagittal and coronal images were reconstructed. Individualized dose optimization techniques were used for this CT. COMPARISON: Comparison is made with prior examination dated April 13, 2021. FINDINGS: 2 mm noncalcified nodule in the anterior aspect of the right lower lobe as seen on axial image #17. Minimal anterior pericardial thickening. Normal liver. Normal gallbladder and extrahepatic biliary system. Normal spleen. Normal pancreas. Normal bilateral adrenal glands. Right parapelvic cysts. There is moderate cortical atrophy of the left kidney, consistent with chronic medical renal disease. Stable moderate-sized paraesophageal hiatal hernia. Normal small intestine. Normal colon. The appendix is visualized and appears normal. There is scattered atherosclerotic calcification of the abdominal aorta, without a demonstrated aneurysm. Normal inferior vena cava. Normal retroperitoneum. There is evidence of a 2.1 cm x 1.9 cm rounded filling defect at the base of the bladder on the left side suggest a lobar bladder carcinoma. The patient is status post hysterectomy and bilateral oophorectomy. Normal abdominal wall. There are diffuse degenerative changes of the visualized lumbar spine. The patient is status post left total hip replacement. Levoscoliosis. Stable loss of height of the L3 and L2 vertebrae. CT/CT Abd/Pelvis W/WO Contrast IMPRESSION: 2.1 cm x 1.9 cm rounded filling defect in the left side of the base of the bladder. Neoplastic process should BE ruled out. Remainder of the examination is unchanged. Electronically Signed: Chin Bell MD at 15:34 EDT ,
[2023-01-01 15:20] LABS: CREATININE FINGERSTICK 1.4 mg/dL (0.55-1.02)
== END | disposition home or self-care (01) ==
PROVIDERS: PCP Internal Medicine; Referring Provider Urology; Visit Provider Urology
DX: N13.4 Hydroureter (principal); D49.4 Neoplasm of unspecified behavior of bladder
CPT/HCPCS: 74178; Q9967

== ENCOUNTER → 2023-01-28 | Outpatient (CLI) | payer MEDICARE, SELFPAY ==
[2023-01-28 15:40] LABS: Erythrocyte Sedimentation Rate 9 mm/hr (0-30)
[2023-01-28 15:43] LABS: Absolute Lymphocyte Count 1.93 X10^3/uL (0.83-4.51); Absolute Neutrophil Count 4.9 X10^3/uL (2.0-7.7); Basophil# 0.09 X10^3/uL; Basophil% 1.2 % (0-1); Eosinophils% 1.3 % (0-5); Hematocrit 39.9 % (37-47); Hemoglobin 12.3 g/dL (12.0-15.0); Lymphocyte # 1.93 X10^3/ul (0.83-4.51); Lymphocyte % 25.6 % (19-41); Mean Corp Hgb Conc 30.8 g/dL (32-36); Mean Corpuscular Hgb 29.1 pg (27.0-32.0); Mean Corpuscular Volume 94.3 fL (81-99); Mean Platelet Vol. 9.9 fl (6.2-12.0); Monocyte% 6.6 % (0-10); NRBC Flagged by Analyzer 0.3 % (0-5); Platelet Count 406 K/mm3 (150-450); RBC Distribution Width CV 13.8 % (11.6-14.6); RBC Distribution Width SD 47.9 fl (35.1-43.9); Red Blood Count 4.23 M/mm3 (4.2-5.4); White Blood Count 7.5 K/mm3 (4.4-11.0)
[2023-01-28 15:48] LABS: ALB/GLOB Ratio 1.2 RATIO (0.9-2.4); AST(SGOT) 18 U/L (15-37); Alanine Aminotransfer ALT/SGPT 23 U/L (13-56); Alkaline Phosphatase 71 U/L (45-117); Anion Gap 3 (5-15); BUN 13 mg/dL (7-18); BUN/Creat Ratio 11.3 RATIO (10-20); CRP < 2.90 mg/L (0.0-3.0); Calcium,Total 9.6 mg/dL (8.5-10.1); Chloride 104 mmol/L (98-107); Creatinine, Serum 1.15 mg/dL (0.55-1.02); EST Glomerular Filtration Rate 49 mL/min (>60); Est Glom Filt Rate - Afr Amer 60 mL/min (>60); Globulin 3.2 g/dL (2.2-4.2); Glucose 101 mg/dL (74-106); LDH 163 U/L (84-246); Potassium 4.1 mmol/L (3.5-5.1); Protein, Total 7.2 g/dL (6.4-8.2); Sodium Level 134 mmol/L (136-145)
[2023-01-30 13:07] LABS: Anti-Centromere B Ab <0.2 AI (0.0-0.9); Anti-Chromatin <0.2 AI (0.0-0.9); Anti-Jo <0.2 AI (0.0-0.9); Anti-Scleroderma-70 AB <0.2 AI (0.0-0.9); Anti-dsDNA Ab 1 IU/mL (0-9); RNP Ab <0.2 AI (0.0-0.9); SJOGREN'S Anti-SS-A test < 0.2 AI (0.0-0.9); SJOGREN'S Anti-SS-B test < 0.2 AI (0.0-0.9); Smith Ab <0.2 AI (0.0-0.9)
[2023-01-31 05:07] LABS: Endomysial Antibody IgA Negative (Negative); Immunoglobulin A 231 mg/dL (64-422); t-Transglutaminase IgA <2 U/mL (0-3)
[2023-02-02 15:07] LABS: Alpha-1-Globulins 0.2 g/dL (0.0-0.4); Alpha-2-Globulins 0.8 g/dL (0.4-1.0); Cytoplasmic Ab (C-ANCA) <1:20 titer (Neg:<1:20); Gamma Globulin 0.5 g/dL (0.4-1.8); Immunoglobulin A 202 mg/dL (64-422); Immunoglobulin E 29 IU/mL (6-495); Immunoglobulin G 535 mg/dL (586-1602); Immunoglobulin M 116 mg/dL (26-217); PROEL- TOTAL PROTEIN 6.7 g/dL (6.0-8.5); Perinuclear Ab (P-ANCA) <1:20 titer (Neg:<1:20)
== END | disposition home or self-care (01) ==
LOC: LAB 14:42
PROVIDERS: PCP Internal Medicine; Referring Provider Nurse Practitioner Adult Health; Visit Provider Nurse Practitioner Adult Health
DX: R19.7 Diarrhea, unspecified (principal)
CPT/HCPCS: 36415; 80053; 82784; 82785; 83516; 83615; 84165; 85025; 85652; 86140; 86225; 86235; 86255; 86256; 86334

== ENCOUNTER → 2023-01-31 | Outpatient (CLI) | payer MEDICARE, OTHER, SELFPAY | END | disposition home or self-care (01) | PROVIDERS: PCP Internal Medicine; Visit Provider Nurse Practitioner Adult Health | DX: R19.7 Diarrhea, unspecified (principal); K58.9 Irritable bowel syndrome, unspecified | CPT/HCPCS: 83630; 83993; 87493 ==

== ENCOUNTER 2023-04-06 05:23 | Day surgery (SDC) | payer MEDICARE, OTHER, SELFPAY ==
[2023-04-06] VITALS (7 sets, daily range): BP systolic 96–115; BP diastolic 42–57; PULSE 60–68; RESP 14–18; TEMP 36.7–36.9; O2SAT 92–95; BMI 30.1
[2023-04-06] MEDS: Lactated Ringers 1,000 ML 15 ML IV (05:50)
--- NOTE | 2023-04-06 06:25 | PCM.HP.BLA ---
History and Physical Date of Admission: 04/06/23 72 F who presents to the office today to establish with Gastroenterology for chronic diarrhea. She reports years of IBS-D but significantly increased symptoms for at least 5 years. Her diarrhea was so significant in early November that she needed ED visit for dehydration and hypotension. She has at least 5 BMs per day, loose or watery, rarely has formed stool. Has urgent diarrhea that starts during meals. Diarrhea will occas wake her at night. Gets cramps before the diarrhea, pain isn't always relieved with BMs. No melena or hematochezia. Takes imodium which is only partially effective, less so over time. Negative Cologuard last year. Last colonoscopy was probably at least [address] Canales at [facility]. Lots of bloating, gas. Despite daily pantoprazole 40 mg she still needs TUMS for heartburn. Has been told she has a large hiatal hernia seen on imaging. No prior EGD. Occas has trouble swallowing pills. Gets epigastric pain routinely, not related to eating, better with sucralfate. She has a bladder mass, likely cancer, was evaluated by urologist Dr Guzman who has referred the patient to urologist Dr Shi at [facility]. ROS Const Constitutional: Positive for frequent falls and weight change (loss); No fatigue, fever(s), headache(s), sleep problems, abnormal sleep pattern or change in appetite ENT ENT: No headache(s), difficulty swallowing, hoarseness or sore throat Resp Respiratory: No cough, hemoptysis or shortness of breath Cardio Cardiology: Positive for leg pain with exertion; No chest pain at rest or generalized swelling Gastro GI: Positive for abdominal pain, bloating, constipation, diarrhea, heartburn and nausea/dyspepsia; No belching, change in bowel habits, change in stool character, coffee ground emesis, cramping, difficulty swallowing, feeling full early, excessive flatus, incontinent of stools, Vomiting blood/hematemesis, Blood in stool, loose stools, Black,tarry stools, pain with swallowing or vomiting Musc Musculoskeletal: Positive for abnormal gait, joint pain, back pain, joint swelling, muscle cramps, muscle weakness, numbness, stiffness, tingling, Arthritis, sciatica, restless legs and leg pain with exertion Skin Skin: No itchy eyes or rash Neuro Neurology: Positive for abnormal gait, frequent falls, numbness, tingling and restless legs; No behavioral changes, confusion or headache(s) Psych Psychiatric: No abnormal sleep pattern, Positive for anxiety, No behavioral changes, No change in appetite, No confusion and Positive for depression Endo Endocrine: Positive for weight change (loss); No cold intolerance, fatigue, heat intolerance or increased thirst/drinking Aller/Imm Allergy/Immunologic: No food intolerance or itchy eyes Cipriano/Lymp Hematologic/Lymphatic: No easy bleeding, easy bruising or enlarged lymph nodes Exam Const General: cooperative and comfortable Nutritional Appearance: overweight Orientation: alert, awake and oriented x3 HENMT Head: normal to inspection Eyes Sclera: sclerae normal Resp Effort & Inspection: normal respiratory effort GI Inspection: normal to inspection Palpation: soft, no hepatosplenomegaly, no masses and tender in the epigastrum, in the LLQ and in the RLQ Skin General: no rashes or lesions noted and no jaundice Quality Reporting Tobacco Screening ([facility] 138) Smoking Status: Never smoker Assessment and Plan Assessment and Plan (1) Diarrhea: ?Status:?Chronic ?Plan: This delightful 72 yr old female has a hx of IBS-D but with significant increase in diarrhea and cramping lower abd pain for at least 5 yrs; she also has chronic heartburn and chronic epigastric pain with a very large hiatal hernia. Unfortunately she has just been diagnosed with bladder cancer; she will see Dr Shi at [facility] next week for this. We will get blood and stool tests to eval for inflammation, celiac, autoimmune. DDx for her diarrhea includes microscopic colitis, SCAD, IBD, IBS, bile induced. Will have her try colestipol 1-2 grams at lunchtime, as well as dicyclomine 10 mg bid. She will be scheduled for EGD and colonoscopy, with office f/u 2 wks later. Early satiety may be due to hiatal hernia, but will consider gastric emptying study. (2) Lower abdominal pain: ?Status:?Chronic ?Plan: see above (3) Epigastric pain: ?Status:?Chronic ?Plan: see above (4) GERD (gastroesophageal reflux disease): ?Status:?Chronic ?Plan: I have examined the patient and the H&P has been reviewed. There are no clinical changes since date of exam.
--- NOTE | 2023-04-06 06:30 | COLBX_PTH ---
PATIENT: TANGELA BENÍTEZ LOC: EN U#:[id number] AGE/SX: 72/F ROOM: RE04/06/[address]: Dr. Shabbir Avina DO : 1950 BED: DIS: 04/06/2023 SPEC #: [id number] RECD: 04/06/23 10:24 STATUS: MOO JASWINDER #: [id number] LAURA: 04/06/23 06:[address]: Shabbir Avina DEPT: SURGICAL PATHOLOGY RECD BY: Lorene Lei ENTERED: 04/06/23 11:43 SP TYPE: COLON BX OTHR DR: Dr. Carmel Goncalves MD Tissues: A - Duodenum, NOS B - Cecum, NOS C - Ileum, NOS D - COLON BIOPSY Procedures: Surgery Specimen Level IV HEADER OPERATION: [place]oscopy with biopsies[place] [place] PRE-OP DIAGNOSIS: Diarrhea, lower abdominal pain, epigastric pain, GERD TISSUE SUBMITTED: A - Duodenum biopsy, B - Cecal polyp biopsy, C - Terminal ileum biopsy, D - Random colon biopsies MICROSCOPIC DIAGNOSIS A. Duodenum, biopsy: No pathologic change. B. Cecal polyp, biopsy: Fragments of tubular adenoma. C. Terminal ileum, biopsy: No pathologic change. D. Colon, random biopsy: No significant pathologic change. AM:nirav 04/07/2023 MICROSCOPIC DESCRIPTION Slides are reviewed. GROSS DESCRIPTION A - Received in fixative is one container labeled with the patient's name and designated duodenum biopsy. The specimen consists of one irregular fragment of light king soft tissue that measures 0.4 x 0.3 x 0.1 cm. The specimen is totally submitted in one cassette. B - Received in fixative is one container labeled with the patient's name and designated cecal polyp biopsy. The specimen consists of two irregular fragments of light king soft tissue that in aggregate measure 0.8 x 0.4 x 0.1 cm. The specimen is totally submitted in one cassette. C - Received in fixative is one container labeled with the patient's name and designated terminal ileum biopsy. The specimen consists of one irregular fragment of light king soft tissue that measures 0.4 x 0.4 x 0.1 cm. The specimen is totally submitted in one cassette. D - Received in fixative is one container labeled with the patient's name and designated random colon biopsy. The specimen consists of multiple irregular fragments of light king soft tissue that in aggregate measure 1.5 x 0.5 x 0.1 cm. The specimen is totally submitted in one cassette. / SJ:nirav 04/06/2023 TC:3 CPT: 45855 x4
--- NOTE | 2023-04-06 07:06 | OP.EGD_ITS ---
Patient Name: Nella Morris Procedure Date: 04/06/2023 6:23 AM Date of : 1950 Age: 72 Procedure: Upper GI endoscopy Indications: Heartburn Providers: Shabbir Avina DO Referring MD: Carmel Goncalves Medicines: Monitored Anesthesia Care Patient Profile: This is a 72 year old female. Refer to note in patient chart for documentation of history and physical. Patient has symptoms of chronic heartburn. Complications: No immediate complications. Procedure: Pre-Anesthesia Assessment: - Prior to the procedure, a History and Physical was performed, and patient medications and allergies were reviewed. The risks and benefits of the procedure and the sedation options and risks were discussed with the patient. All questions were answered and informed consent was obtained. Patient identification and proposed procedure were verified by the physician. Mental Status Examination: normal. Respiratory Examination: clear to auscultation. Prophylactic Antibiotics: The patient does not require prophylactic antibiotics. Prior Anticoagulants: The patient has taken no previous anticoagulant or antiplatelet agents. ASA Grade Assessment: II - A patient with mild systemic disease. After reviewing the risks and benefits, the patient was deemed in satisfactory condition to undergo the procedure. The anesthesia plan was to use monitored anesthesia care (MAC). Immediately prior to administration of medications, the patient was re-assessed for adequacy to receive sedatives. The heart rate, respiratory rate, oxygen saturations, blood pressure, adequacy of pulmonary ventilation, and response to care were monitored throughout the procedure. The physical status of the patient was re-assessed after the procedure. After obtaining informed consent, the endoscope was passed under direct vision. Throughout the procedure, the patient's blood pressure, pulse, and oxygen saturations were monitored continuously. The was introduced through the mouth, and advanced to the second part of duodenum. The upper GI endoscopy was accomplished without difficulty. The patient tolerated the procedure well. Scope In: 6:40:22 AM Scope Out: 6:44:57 AM Total Procedure Duration Time 0 hours 4 minutes 35 seconds Findings: The examined esophagus was normal. A large hiatal hernia was present. No other significant abnormalities were identified in a careful examination of the stomach. Patchy mildly erythematous mucosa without active bleeding and with no stigmata of bleeding was found in the duodenal bulb. Biopsies were taken with a cold forceps for histology. Verification of patient identification for the specimen was done. Estimated blood loss was minimal. Impression: - Normal esophagus. - Large hiatal hernia. - Erythematous duodenopathy. Biopsied. Recommendation: - Discharge patient to home. - Resume previous diet. - Continue present medications. - Await pathology results. Procedure Code(s): --- Professional --- 91750, Esophagogastroduodenoscopy, flexible, transoral; with biopsy, single or multiple CPT copyright 2017 [employer]. All rights reserved. The codes documented in this report are preliminary and upon television host review may be revised to meet current compliance requirements. Shabbir Avina DO 04/06/2023 7:06:16 AM This report has been signed electronically. Number of Addenda: 0 Note Initiated On: 04/06/2023 6:23 AM
--- NOTE | 2023-04-06 07:07 | OP.CCLET_ITS ---
04/06/2023 Carmel Goncalves [address] [place] [address] Re : Upper GI endoscopy procedure for Nella Morris Dear Dr. Goncalves This procedure was performed on Thursday, April 06, 2023. My impressions and recommendations are as follows: Impressions : - Normal esophagus. - Large hiatal hernia. - Erythematous duodenopathy. Biopsied. Recommendations : - Discharge patient to home. - Resume previous diet. - Continue present medications. - Await pathology results. My findings are described in the full procedure note, which is enclosed. If I can be of further assistance, please feel free to contact me at . Sincerely, Shabbir Avina, 04/06/2023 7:06:16 AM This report has been signed electronically.
--- NOTE | 2023-04-06 07:12 | OP.CCLET_ITS ---
04/06/2023 Carmel Goncalves [address] [place] [address] Re : Colonoscopy procedure for Nella Morris Dear Dr. Goncalves This procedure was performed on Thursday, April 06, 2023. My impressions and recommendations are as follows: Impressions : - One 5 mm polyp in the cecum, removed with a cold snare. Resected and retrieved. - Congested mucosa in the recto-sigmoid colon, in the sigmoid colon, at the hepatic flexure and in the ascending colon. Biopsied. - Congested mucosa in the terminal ileum. Biopsied. Recommendations : - Discharge patient to home. - Resume previous diet. - Continue present medications. - Await pathology results. - Repeat colonoscopy in 5 years for surveillance. My findings are described in the full procedure note, which is enclosed. If I can be of further assistance, please feel free to contact me at . Sincerely, Shabbir Avina, 04/06/2023 7:11:02 AM This report has been signed electronically.
--- NOTE | 2023-04-06 07:12 | OP.COLON_ITS ---
Patient Name: Nella Morris Procedure Date: 04/06/2023 6:45 AM Date of : 1950 Age: 72 Procedure: Colonoscopy Indications: Screening for colorectal malignant neoplasm Providers: Shabbir Avina DO Referring MD: Carmel Goncalves Medicines: Monitored Anesthesia Care Patient Profile: This is a 72 year old female. Refer to note in patient chart for documentation of history and physical. Patient has symptoms of chronic heartburn. Last Colonoscopy: more than 10 years ago. Complications: No immediate complications. Procedure: Pre-Anesthesia Assessment: - Prior to the procedure, a History and Physical was performed, and patient medications and allergies were reviewed. The risks and benefits of the procedure and the sedation options and risks were discussed with the patient. All questions were answered and informed consent was obtained. Patient identification and proposed procedure were verified by the physician. Mental Status Examination: normal. Respiratory Examination: clear to auscultation. Prophylactic Antibiotics: The patient does not require prophylactic antibiotics. Prior Anticoagulants: The patient has taken no previous anticoagulant or antiplatelet agents. ASA Grade Assessment: II - A patient with mild systemic disease. After reviewing the risks and benefits, the patient was deemed in satisfactory condition to undergo the procedure. The anesthesia plan was to use monitored anesthesia care (MAC). Immediately prior to administration of medications, the patient was re-assessed for adequacy to receive sedatives. The heart rate, respiratory rate, oxygen saturations, blood pressure, adequacy of pulmonary ventilation, and response to care were monitored throughout the procedure. The physical status of the patient was re-assessed after the procedure. After I obtained informed consent, the scope was passed under direct vision. Throughout the procedure, the patient's blood pressure, pulse, and oxygen saturations were monitored continuously. The was introduced through the anus and advanced to the terminal ileum. The colonoscopy was performed without difficulty. The patient tolerated the procedure well. The quality of the bowel preparation was good. Scope In: 6:46:43 AM Scope Withdrawal Time 0 hours 8 minutes 31 seconds Scope Out: 6:57:42 AM Total Procedure Duration Time 0 hours 10 minutes 59 seconds Findings: The perianal and digital rectal examinations were normal. A 5 mm polyp was found in the cecum. The polyp was sessile. The polyp was removed with a cold snare. Resection and retrieval were complete. Verification of patient identification for the specimen was done. Estimated blood loss was minimal. An area of mildly congested mucosa was found in the recto-sigmoid colon, in the sigmoid colon, at the hepatic flexure and in the ascending colon. Biopsies were taken with a cold forceps for histology. Verification of patient identification for the specimen was done. Estimated blood loss was minimal. A patchy area of the terminal ileum was congested. Biopsies were taken with a cold forceps for histology. Verification of patient identification for the specimen was done. Estimated blood loss was minimal. Multiple small and large-mouthed diverticula were found in the recto-sigmoid colon, sigmoid colon and descending colon. Impression: - One 5 mm polyp in the cecum, removed with a cold snare. Resected and retrieved. - Congested mucosa in the recto-sigmoid colon, in the sigmoid colon, at the hepatic flexure and in the ascending colon. Biopsied. - Congested mucosa in the terminal ileum. Biopsied. Recommendation: - Discharge patient to home. - Resume previous diet. - Continue present medications. - Await pathology results. - Repeat colonoscopy in 5 years for surveillance. Procedure Code(s): --- Professional --- 50620, Colonoscopy, flexible; with removal of tumor(s), polyp(s), or other lesion(s) by snare technique 34622, 59, Colonoscopy, flexible; with biopsy, single or multiple CPT copyright 2017 [employer]. All rights reserved. The codes documented in this report are preliminary and upon tenant coordinator review may be revised to meet current compliance requirements. Shabbir Avina DO 04/06/2023 7:11:02 AM This report has been signed electronically. Number of Addenda: 0 Note Initiated On: 04/06/2023 6:45 AM
== END 2023-04-06 07:51 | disposition home or self-care (01) ==
LOC: EN 05:23 → AC 05:24
PROVIDERS: PCP Internal Medicine; Referring Provider Internal Medicine; Visit Provider Internal Medicine Gastroenterology
PROC: 0DJD8ZZ Inspection of Lower Intestinal Tract, Via Natural or Artificial Opening Endoscopic (ICD-10-PCS; CPT 45378; principal; 2023-04-06 06:25)
DX: Z12.11 Encounter for screening for malignant neoplasm of colon (principal); C67.9 Malignant neoplasm of bladder, unspecified; K44.9 Diaphragmatic hernia without obstruction or gangrene; K21.9 Gastro-esophageal reflux disease without esophagitis; K57.30 Diverticulosis of large intestine without perforation or abscess without bleeding; K31.89 Other diseases of stomach and duodenum; Z87.19 Personal history of other diseases of the digestive system; D12.0 Benign neoplasm of cecum; Z79.899 Other long term (current) drug therapy; Z79.890 Hormone replacement therapy; I10 Essential (primary) hypertension; E78.00 Pure hypercholesterolemia, unspecified; E03.9 Hypothyroidism, unspecified
CPT/HCPCS: 43239; 45385; 45380; 88305; J7120; J2405

== ENCOUNTER 2023-09-07 11:15 | Emergency (ER) | payer MEDICARE, OTHER, SELFPAY ==
[2023-09-07 11:16] VITALS: BP 161/96; PULSE 91; RESP 16; TEMP 36.6; O2SAT 98; BMI 29.2
--- NOTE | 2023-09-07 11:44 | CT_ITS ---
STUDY: CT ABDOMEN AND PELVIS WITH CONTRAST - URINARY TRACT REASON FOR EXAM: Female, 73 years old. Abdominal pain RADIATION DOSAGE (If Supplied By Facility): CTDIvol = ( 11.79 ) mGy, DLP = ( 512.02 ) mGycm TECHNIQUE: IV 100mL Isovue-300 was administered. Transaxial images were obtained from the dome of the diaphragm to the symphysis pubis in the arterial, nephrographic and excretory phases. Multiplanar coronal and sagittal images were reformatted. Individualized Dose Optimization Techniques Were Used For This CT. COMPARISON: April 13, 2021, November 20, 2022 and January 01, 2023 FINDINGS: There is a stable 5.6 mm nodule within the lingula. There is a stable 2 mm nodule within the right lower lobe. The visualized portions of the heart are within normal limits. Normal liver. Normal gallbladder and extrahepatic biliary system. Normal spleen. Normal pancreas. Normal bilateral adrenal glands. There is a grossly stable moderate-sized hiatal hernia associated with an intrathoracic stomach. Normal small intestine. There are multiple colonic diverticula consistent with diverticulosis. There is non-visualization of the appendix. There is diffuse atherosclerotic calcification of the abdominal aorta, without a demonstrated aneurysm. No retroperitoneal adenopathy. There are stable bilateral renal cysts. There are stable left renal atrophy. Normal urinary bladder. Normal abdominal wall. There are diffuse degenerative changes of the visualized lumbar spine. There is evidence of prior kyphoplasty of L4 to an L3. There is a stable T12. There is a left hip arthroplasty in place associated beam hardening artifact obscuring anatomic detail within the pelvis. CT/Abdomen/Pelvis W IV Cont ONLY IMPRESSION: No acute intra-abdominal process. Stable moderate-sized hiatal hernia associated with an intrathoracic stomach. Colonic diverticulosis. Atherosclerosis. Electronically Signed: Rajwinder Croft MD at 13:38 EST ,
--- NOTE | 2023-09-07 11:51 | EX.ED.DYSGE1 ---
HPI <KENISHA Cueto - Last Filed: 09/07/23 14:17> History of Present Illness Chief Complaint: Abd Pain Narrative Narrative: Patient is a 73-year-old female with history of depression, GERD who presents to the emergency department with 3 days of generalized abdominal pain, diarrhea. Patient states the pain started in her right upper quadrant, patient then had significant cramping to her lower abdomen. She states she had multiple bouts of diarrhea which is abnormal for her. She denies any blood in the stool, she denies any blood in vomit however she did not vomit she just has nausea. She denies any fever or chills, denies any sick contacts. Patient rates her pain in her lower abdomen as an 8 out of 10. PFSH <KENISHA Cueto - Last Filed: 09/07/23 14:17> [facility] Medical History Acute right flank pain Allergic rhinitis Anxiety Bloating Cancer Cardiology follow-up encounter Cervical disc herniation Closed fracture of left proximal humerus Depression Diverticulosis Dysmetabolic syndrome Epigastric pain Essential (primary) hypertension Fibromyalgia Fracture of talus of left ankle, closed GERD (gastroesophageal reflux disease) High cholesterol History of cataract History of Clostridium difficile infection History of echocardiogram History of gastroesophageal reflux (GERD) History of hiatal hernia History of IBS History of stress test Hyperlipidemia Hypothyroidism Injury of back Internal hemorrhoids Left ankle strain Leg cramps Medullary sponge kidney Non-smoker Osteoarthritis Osteoporosis Paroxysmal SVT (supraventricular tachycardia) Sacro-iliac pain Thyroid disease Home Medications citalopram 40 mg tablet 40 mg PO QHS depression 09/24/16 [History Last Taken 01/08/19 40 MG] levothyroxine 50 mcg tablet 50 mcg PO DAILY thyroid 09/24/16 [History Last Taken 04/06/23 05:00] pantoprazole 40 mg tablet,delayed release 40 mg PO BID gerd 09/24/16 [History Last Taken 04/06/23 05:00] alprazolam 0.5 mg tablet 0.5 mg PO QHS 12/09/16 [History Last Taken 04/06/23 05:00] acetaminophen 650 mg tablet,extended release 1,300 mg PO PRN PRN Pain 09/28/18 [History Last Taken 01/08/19 1300 MG] buspirone 15 mg tablet 15 mg PO DAILY depression/anxiety 09/28/18 [History Last Taken 01/08/19 15 MG] tizanidine 4 mg tablet 4 mg PO QHS muscle spasms 09/28/18 [History Last Taken 01/08/19 4 MG] cholecalciferol (vitamin D3) 125 mcg (5,000 unit) tablet 125 mcg PO DAILY 01/31/21 [History Last Taken Unknown] qamtghav-sxhd-fifq 8 mg-folic 400 mcg-K 50 mcg-lutein 300 mcg tablet (Centrum Silver Women) 1 tablet PO DAILY 01/31/21 [History Last Taken Unknown] zoledronic acid 5 mg/100 mL in mannitol 5 %-water intravenous piggybck (Reclast) 1 ea .Route X1 02/14/22 [History Last Taken Unknown] metoprolol succinate 25 mg tablet,extended release 24 hr 25 mg PO DAILY #90 tabs 02/17/22 [Rx Last Taken 04/06/23 05:00] pregabalin 75 mg capsule 75 mg PO DAILY 04/11/22 [History Last Taken Unknown] lidocaine 4 % topical patch 1 patch topical DAILY PRN Pain 06/02/22 [History Last Taken Unknown] meloxicam 15 mg tablet 15 mg PO DAILY 11/14/22 [History Last Taken Unknown] sodium sul 1.479 gram-potas ch 0.188 gram-magnes sul 0.225 gram tablet (Sutab) See Rx Instructions PO PER PKG DIR #24 tabs 03/26/23 [Rx Last Taken Unknown] bupropion HCl 150 mg tablet,12 hr sustained-release 150 mg PO BID 04/01/23 [History Last Taken Unknown] ondansetron 4 mg disintegrating tablet 4 mg PO Q8H PRN PRN Nausea #20 tabs 09/07/23 [Rx Last Taken Unknown] sucralfate 100 mg/mL oral suspension (Carafate) 10 ml PO BID #1,000 mL 09/07/23 [Rx Last Taken Unknown] Allergy/AdvReac Type Severity Reaction Status Date / Time latex Allergy COUGHING Verified 05/07/23 11:33 AND SORE THROAT Family History Father , Age 43 Hodgkins disease Sister Osteoporosis Mother Myocardial infarction Other Hypertension Surgical History History of appendectomy History of bladder surgery History of bladder suspension procedure History of bunionectomy History of cataract extraction History of hysterectomy History of left oophorectomy History of lumbar laminectomy (09/2019) History of radiofrequency ablation procedure for cardiac arrhythmia (08/07/21) History of right oophorectomy History of stem cell transplant History of total left hip arthroplasty Social History household members: spouse Smoking Status: Never smoker alcohol intake: current alcohol intake frequency: a few times a month Alcohol type: wine substance use type: does not use caffeine: Yes Type: coffee Number of servings: 2 what type of physical activity do you participate in: none ROS <KENISHA Cueto - Last Filed: 09/07/23 14:17> ROS ED ROS Narrative Constitutional: Negative for fever, chills, weight loss, weakness Eyes: Negative for vision loss, vision change, double vision ENT: Negative for any sore throat, ear pain, congestion Cardiovascular: Negative for any chest pain, tightness, palpitations Respiratory: Negative for any cough, sputum production, hemoptysis, dyspnea, dyspnea on exertion, orthopnea Gastrointestinal: Negative for any vomiting, constipation, blood in stool, blood in vomit. Positive for abdominal pain, diarrhea, nausea : Negative for any urinary frequency, dysuria, retention, blood in urine Muscle skeletal: Negative for any myalgias, arthralgias, neck pain, back pain Neurological: Negative for any headache, syncope, numbness or tingling, dizziness Skin: Negative for any rashes, lumps, itching, abrasions, lacerations Psychiatric: Negative for any depression, anxiety, stress, suicidal ideation, homicidal ideation Hematologic: Negative for any easy bruising, excessive bruising, easy bleeding Allergies: Negative for any eczema, hives, rash EXAM <KENISHA Cueto - Last Filed: 09/07/23 14:17> Physical Exam Narrative Exam Narrative: Vital signs reviewed. Patient does look to be in slight discomfort. HEET: Head normocephalic atraumatic, TMs clear bilaterally. Posterior pharynx is clear, moist mucous membranes. Nares clear bilaterally. Neck: Supple with no lymphadenopathy or tenderness. No signs of meningismus. Cardiac: Regular rate and rhythm no murmurs gallops or rubs, equal peripheral pulses bilaterally. Respiratory: Lungs clear to auscultation bilaterally. No chest tenderness. Abdomen: Soft, nondistended. No abdominal bruit or pulsatile masses. No hepatosplenomegaly. Patient had generalized tenderness, was difficult to localize. Active bowel sounds in all quadrants Extremities: No peripheral edema, no signs of gross trauma or deformity. Active full range of motion of all extremities. Neuro: Cranial nerves II through XII intact, no focal neurological deficits. Skin: Clean dry and intact with no rash, purpura, petechiae, vesicles or pustules. Backs/flank: No CVA tenderness, no midline spinal tenderness, no deformity. Psych: Normal mood and affect. No SI, HI or acute psychosis. Const Vital Signs: 09/07/23 11:16 09/07/23 14:00 Temperature 97.8 F 97.6 F L Temperature Source Temporal Pulse Rate 91 74 Respiratory Rate 16 14 Blood Pressure 161/96 H 142/78 H Blood Pressure Mean 117 99 Pulse Ox 98 97 Oxygen Delivery Method Room Air <Dr. Chun Randolph DO - Last Filed: 09/07/23 14:57> Physical Exam Const Vital Signs: 09/07/23 11:16 09/07/23 14:00 Temperature 97.8 F 97.6 F L Temperature Source Temporal Pulse Rate 91 74 Respiratory Rate 16 14 Blood Pressure 161/96 H 142/78 H Blood Pressure Mean 117 99 Pulse Ox 98 97 Oxygen Delivery Method Room Air [facility] <KENISHA Cueto - Last Filed: 09/07/23 14:17> [facility] Lab Data Labs: Laboratory Results - last 24 hr 09/07/23 09/07/23 11:55 12:55 WBC 6.9 RBC 3.99 L Hgb 11.3 L Hct 36.9 L MCV 92.5 MCH 28.3 MCHC 30.6 L RDW Std Deviation 47.8 H RDW Coeff of Garret 14.0 Plt Count 375 MPV 9.0 Immature Gran % (Auto) 0.400 Neut % (Auto) 70.5 H Lymph % (Auto) 18.6 L Hart % (Auto) 7.6 Eos % (Auto) 2.0 Baso % (Auto) 0.9 Absolute Neuts (auto) 4.9 Absolute Lymphs (auto) 1.29 Nucleated RBC % 0 Sodium 138 Potassium 3.6 Chloride 106 Carbon Dioxide 29.0 Anion Gap 3 L BUN 8 Creatinine 0.90 Estim Creat Clear Calc 57.80 Est GFR (MDRD) Af Amer 79 Est GFR (MDRD) Non-Af 66 BUN/Creatinine Ratio 8.9 L Glucose 98 Calcium 8.7 Total Bilirubin 0.40 AST 13 L ALT 16 Alkaline Phosphatase 67 Total Protein 6.5 Albumin 3.3 Globulin 3.2 Albumin/Globulin Ratio 1.0 Lipase 27 Urine Color Yellow Urine Clarity Sl. Cloudy Urine pH 7.0 Ur Specific [place] 1.005 Urine Protein Negative Urine Glucose (UA) Normal Urine Ketones Negative Urine Occult Blood Negative Urine Nitrite Negative Urine Bilirubin Negative Urine Urobilinogen Normal Ur Leukocyte Esterase Negative Urine RBC 0 SEEN Urine WBC 0 SEEN Ur Squamous Epith Cells 0-5 SEEN Urine Bacteria 0 SEEN Urine Mucus 0 SEEN Radiography Diagnostic Testing: Clinical Impression(s) from Imaging Studies Abdomen/Pelvis CT 09/07/23 11:44 IMPRESSION: No acute intra-abdominal process. Stable moderate-sized hiatal hernia associated with an intrathoracic stomach. Colonic diverticulosis. Atherosclerosis. Electronically Signed: Rajwinder Croft MD at 13:38 EST , Treatment and Re-Evaluation :: Patient appears to be in slight discomfort secondary to abdominal pain, patient appears nontoxic, vital signs are stable. Patient presents the emergency department abdominal pain, diarrhea, nausea over the last 3 days. Differential diagnosis includes diverticulitis, gastroenteritis, acute cholecystitis, viral-like illness. Patient will receive basic laboratory values including CBC CMP, lipase. CT scan of the abdomen pelvis will be ordered to rule out any surgical emergencies. All radiologic examinations were read, reviewed by the emergency department attending. From these reads, a plan of care will be put in place. Patient was also given GI cocktail. She did have slight relief. Patient's CBC shows slight anemia 11.3. Patient's chemistries were unremarkable. Patient's liver enzymes were unremarkable. CT scan of the abdomen pelvis showed no acute intra-abdominal process, stable moderate size hilar hernia. Patient's urinalysis negative for infection. At this time, there is no emergent findings. Patient will need to follow-up with GI specialist, she does have 1 that she is established with. She will be given Carafate for home. She will continue take her daily medications, all questions were answered, she was given strict return precaution. Stable for discharge <Dr. Chun Randolph, DO - Last Filed: 09/07/23 14:57> [facility] Narrative Medical decision making narrative: Patient appears to be in slight discomfort secondary to abdominal pain, patient appears nontoxic, vital signs are stable. Patient presents the emergency department abdominal pain, diarrhea, nausea over the last 3 days. Differential diagnosis includes diverticulitis, gastroenteritis, acute cholecystitis, viral-like illness. Patient will receive basic laboratory values including CBC CMP, lipase. CT scan of the abdomen pelvis will be ordered to rule out any surgical emergencies. All radiologic examinations were read, reviewed by the emergency department attending. From these reads, a plan of care will be put in place. Patient was also given GI cocktail. She did have slight relief. Patient's CBC shows slight anemia 11.3. Patient's chemistries were unremarkable. Patient's liver enzymes were unremarkable. CT scan of the abdomen pelvis showed no acute intra-abdominal process, stable moderate size hilar hernia. Patient's urinalysis negative for infection. At this time, there is no emergent findings. Patient will need to follow-up with GI specialist, she does have 1 that she is established with. She will be given Carafate for home. She will continue take her daily medications, all questions were answered, she was given strict return precaution. Stable for discharge This patient was seen with a PA/METAL MOULDER'S ASSISTANT Individually assessed they patient including history and physical. I have reviewed everything on the chart that is available and agree with the documentation provided by the PA/METAL MOULDER'S ASSISTANT including discussion about the assessment, treatment plan, discussion, and return precautions. Patient presenting with epigastric pain as well as left lower abdominal pain. Blood work all was unremarkable. CT of the pelvis was concerning for stable moderate size hiatal hernia which is not new. Patient knows of this. She is already had evaluated by Dr. Avina. This is likely the cause of her epigastric burning. She was given a GI cocktail which did help her symptoms. Will be sent home with Carafate and Zofran. Lab Data Attestation: I reviewed the patient's lab results. Labs: Laboratory Results - last 24 hr 09/07/23 09/07/23 11:55 12:55 WBC 6.9 RBC 3.99 L Hgb 11.3 L Hct 36.9 L MCV 92.5 MCH 28.3 MCHC 30.6 L RDW Std Deviation 47.8 H RDW Coeff of Garret 14.0 Plt Count 375 MPV 9.0 Immature Gran % (Auto) 0.400 Neut % (Auto) 70.5 H Lymph % (Auto) 18.6 L Hart % (Auto) 7.6 Eos % (Auto) 2.0 Baso % (Auto) 0.9 Absolute Neuts (auto) 4.9 Absolute Lymphs (auto) 1.29 Nucleated RBC % 0 Sodium 138 Potassium 3.6 Chloride 106 Carbon Dioxide 29.0 Anion Gap 3 L BUN 8 Creatinine 0.90 Estim Creat Clear Calc 57.80 Est GFR (MDRD) Af Amer 79 Est GFR (MDRD) Non-Af 66 BUN/Creatinine Ratio 8.9 L Glucose 98 Calcium 8.7 Total Bilirubin 0.40 AST 13 L ALT 16 Alkaline Phosphatase 67 Total Protein 6.5 Albumin 3.3 Globulin 3.2 Albumin/Globulin Ratio 1.0 Lipase 27 Urine Color Yellow Urine Clarity Sl. Cloudy Urine pH 7.0 Ur Specific [place] 1.005 Urine Protein Negative Urine Glucose (UA) Normal Urine Ketones Negative Urine Occult Blood Negative Urine Nitrite Negative Urine Bilirubin Negative Urine Urobilinogen Normal Ur Leukocyte Esterase Negative Urine RBC 0 SEEN Urine WBC 0 SEEN Ur Squamous Epith Cells 0-5 SEEN Urine Bacteria 0 SEEN Urine Mucus 0 SEEN Radiography Diagnostic Testing: Clinical Impression(s) from Imaging Studies Abdomen/Pelvis CT 09/07/23 11:44 IMPRESSION: No acute intra-abdominal process. Stable moderate-sized hiatal hernia associated with an intrathoracic stomach. Colonic diverticulosis. Atherosclerosis. Electronically Signed: Rajwinder Croft MD at 13:38 EST , Discharge Plan Triage Chief Complaint: Abd Pain ED Midlevel Provider: Rojas Trinh ED Provider: Chun Randolph Dx/Rx/DC Orders Clinical Impression: Gastroesophageal reflux disease, Abdominal pain Instructions: Hiatal Hernia Repair, ED Hiatal Hernia Prescriptions: New sucralfate [Carafate] 100 mg/mL suspension 10 ml PO BID Qty: 1000 0RF ondansetron 4 mg tablet,disintegrating 4 mg PO Q8H PRN PRN (Reason: Nausea) Qty: 20 0RF No Action cholecalciferol (vitamin D3) 125 mcg (5,000 unit) tablet 125 mcg PO DAILY Centrum Silver Women 8 mg iron-400 mcg-300 mcg tablet 1 tablet PO DAILY zoledronic [id number] [Reclast] 5 mg/100 mL piggyback 1 ea .Route X1 Rx Instructions: Once a year infusion pregabalin 75 mg capsule 75 mg PO DAILY lidocaine 4 % adhesive patch,medicated 1 patch topical DAILY PRN (Reason: Pain) meloxicam 15 mg tablet 15 mg PO DAILY citalopram 40 MG tablet 40 mg PO QHS levothyroxine 50 MCG tablet 50 mcg PO DAILY pantoprazole 40 MG tablet 40 mg PO BID alprazolam 0.5 MG tablet 0.5 mg PO QHS tizanidine 4 MG tablet 4 mg PO QHS acetaminophen 650 MG tablet extended release 1,300 mg PO PRN PRN (Reason: Pain) buspirone 15 MG tablet 15 mg PO DAILY bupropion HCl 150 mg tablet sustained-release 12 hr 150 mg PO BID Patient Comments: TAKE 1 TABLET BY MOUTH TWICE DAILY DIRECTED metoprolol succinate 25 mg tablet extended release 24 hr 25 mg PO DAILY Qty: 90 3RF Sutab 1.479-0.188- 0.225 gram tablet See Rx Instructions PO PER PKG DIR Qty: 24 0RF Rx Instructions: PO PER PKG DIR Primary Care Provider: Carmel Goncalves Referrals: Carmel Goncalves MD [Primary Care Provider] - Disposition Disposition: Home, Self Care Discharge Date/Time: 09/07/23 14:05
[2023-09-07 12:05] LABS: Absolute Lymphocyte Count 1.29 X10^3/uL (0.83-4.51); Absolute Neutrophil Count 4.9 X10^3/uL (2.0-7.7); Basophil# 0.06 X10^3/uL; Basophil% 0.9 % (0-1); Eosinophil# 0.14 X10^3/uL; Hematocrit 36.9 % (37-47); Hemoglobin 11.3 g/dL (12.0-15.0); Lymphocyte # 1.29 X10^3/ul (0.83-4.51); Lymphocyte % 18.6 % (19-41); Mean Corp Hgb Conc 30.6 g/dL (32-36); Mean Corpuscular Hgb 28.3 pg (27.0-32.0); Mean Corpuscular Volume 92.5 fL (81-99); Monocyte# 0.53 X10^3/uL; Monocyte% 7.6 % (0-10); NRBC Flagged by Analyzer 0 % (0-5); Neutrophil # 4.89 X10^3/uL (2.7-7.7); Neutrophil % 70.5 % (47-70); Platelet Count 375 K/mm3 (150-450); RBC Distribution Width SD 47.8 fl (35.1-43.9); Red Blood Count 3.99 M/mm3 (4.2-5.4); White Blood Count 6.9 K/mm3 (4.4-11.0)
[2023-09-07] MEDS: Ondansetron 4 MG/2 ML Vial IV (12:07)
[2023-09-07] MEDS: Morphine 4 MG/ML Syringe IV (12:07)
[2023-09-07] MEDS: 0.9% Normal Saline (1000mL) 1,000 ML 1000 ML IV (12:07)
[2023-09-07 12:20] LABS: AST(SGOT) 13 U/L (15-37); Alanine Aminotransfer ALT/SGPT 16 U/L (13-56); Albumin, Serum 3.3 g/dL (3.2-5.0); Alkaline Phosphatase 67 U/L (45-117); Anion Gap 3 (5-15); BUN 8 mg/dL (7-18); BUN/Creat Ratio 8.9 RATIO (10-20); Calcium,Total 8.7 mg/dL (8.5-10.1); Chloride 106 mmol/L (98-107); EST Glomerular Filtration Rate 66 mL/min (>60); Est Glom Filt Rate - Afr Amer 79 mL/min (>60); Globulin 3.2 g/dL (2.2-4.2); Glucose 98 mg/dL (74-106); Lipase 27 U/L (13-75); Potassium 3.6 mmol/L (3.5-5.1); Protein, Total 6.5 g/dL (6.4-8.2); Sodium Level 138 mmol/L (136-145)
[2023-09-07 12:59] LABS: Bacteria 0 SEEN /hpf (None Seen); Mucous, Urine 0 SEEN /hpf (<or=2+); Red Blood Cells-Urine 0 SEEN /hpf (0-5); White Blood Cells 0 SEEN /hpf (0-5)
[2023-09-07 13:07] LABS: Color, Urine Yellow (Yellow); Glucose, Dipstick Normal (Normal); Ketone-Dipstick Negative (Negative); Leukocyte Esterase-Dipstick Negative /ul (Negative); Nitrite-Dipstick Negative (Negative); Occult Blood-Urine Negative /ul (Negative); Protein-Dipstick Negative (Negative); Specific Gravity, Urine 1.005 (1.002-1.030); Urine Bilirubin Dipstick Negative (Negative); Urine Clarity Sl. Cloudy (Clear); Urine Urobilinogen Normal (Normal)
[2023-09-07 13:14] LABS: Squamous Epithelial Cells - UA 0-5 SEEN /hpf (5-10)
[2023-09-07] MEDS: Mag Hydrox/Al Hydrox/Simeth 30 ML UDC PO (13:21)
[2023-09-07 14:00] VITALS: BP 142/78; PULSE 74; RESP 14; TEMP 36.4; O2SAT 97
== END 2023-09-07 14:05 | disposition home or self-care (01) ==
PROVIDERS: Nurse Practitioner; Emergency Provider Student in an Organized Health Care Education/Training Program; PCP Internal Medicine; Visit Provider Student in an Organized Health Care Education/Training Program
DX: K21.9 Gastro-esophageal reflux disease without esophagitis (principal); K44.9 Diaphragmatic hernia without obstruction or gangrene; R10.84 Generalized abdominal pain; R19.7 Diarrhea, unspecified; I10 Essential (primary) hypertension; E78.00 Pure hypercholesterolemia, unspecified; D64.9 Anemia, unspecified
CPT/HCPCS: 74177; 80053; 81001; 83690; 85025; 96361; 96374; 96375; 99284; J7030; Q9967; A4216; J2405

== ENCOUNTER → 2023-12-01 | Outpatient (CLI) | payer MEDICARE, OTHER, SELFPAY ==
--- NOTE | 2023-12-01 12:26 | BD_ITS ---
STUDY: DUAL ENERGY X-RAY ABSORPTIOMETRY / DXA REASON FOR EXAM: Female, 73 years old. [id number] TECHNIQUE: Bone Mineral Density (BMD) measurements of lumbar spine and right hip were obtained. COMPARISON: Comparison is made with prior study dated November 26, 2021. FINDINGS: Lumbar Spine (L1-L4): g/cm2 (0.706) / T-score (-3.0) / Z-score (-0.7) Findings are suggestive of osteoporosis with a high fracture risk. Right Femur Total: g/cm2 (0.567) / T-score (-3.1) / Z-score (-1.4) Right Femoral Neck: g/cm2 (0.434) / T-score (-3.7) / Z-score (-1.8) The T-Scores on the most recent prior examination were: Lumbar Spine (L1-L4): There has been improvement of bone density since the previous examination. Right Femur Total: which represents a worsening of 5.5%. BD/Dexa Bone Density Study IMPRESSION: The patient is considered osteoporotic as outlined below according to World Elvis Organization (WHO) criteria with a high fracture risk. There has been worsening of bone density since the previous examination. Reference Information: The T-score is the number of standard deviations above or below the standard which is normal for young adults at their peak bone mineral density. The World Health Organization (WHO) interprets the T-scores as follows: Above -1 Normal bone density Between -1 and -2.5 Osteopenia Equal to / or below -2.5 Osteoporosis As a practical clinical guideline, osteopenia may be graded as follows: Mild -1 through -1.5 Moderate -1.6 through -2.0 Severe -2.1 through -2.4 The Z-score is the number of standard deviations above or below age-matched controls. A Z-score of less than -1.5 would be considered abnormal. References: 1. NIH Osteoporosis and Related Bone Diseases www osteo.org 2. International Society for Clinical Densitometry www iscd.org 3. National Osteoporosis Foundation www nof.org Electronically Signed: Chin Bell MD at 14:55 EST ,
== END | disposition home or self-care (01) ==
LOC: OPBD 12:19
PROVIDERS: PCP Internal Medicine; Referring Provider Internal Medicine; Visit Provider Internal Medicine
DX: Z13.820 Encounter for screening for osteoporosis (principal); Z78.0 Asymptomatic menopausal state; M80.00XD Age-related osteoporosis with current pathological fracture, unspecified site, subsequent encounter for fracture with routine healing; X58.XXXD Exposure to other specified factors, subsequent encounter
CPT/HCPCS: 77080

== ENCOUNTER → 2024-01-20 | Outpatient (CLI) | payer MEDICARE, OTHER, SELFPAY | END | disposition home or self-care (01) | LOC: SL 13:10 | PROVIDERS: PCP Internal Medicine; Referring Provider Physician Assistant Medical; Visit Provider Physician Assistant Medical | DX: R06.00 Dyspnea, unspecified (principal); G47.33 Obstructive sleep apnea (adult) (pediatric) | CPT/HCPCS: 95806 ==

== ENCOUNTER → 2024-01-29 | Outpatient (CLI) | payer MEDICARE, OTHER, SELFPAY ==
--- NOTE | 2024-01-29 10:34 | STRESSREP ---
Stress Test Report Pharmacologic myocardial perfusion stress test. 73-year-old lady with a history of chest pain Resting EKG demonstrates sinus rhythm with a rate of 65 bpm. Resting blood pressure is 146/88 mmHg. 0.4 mg of regadenoson was infused per usual protocol followed by rapid intravenous saline flush injection. Continuous EKG monitoring was performed. The maximum heart rate was 90 bpm which was 61%of max impacted heart rate the maximum workload was 1 metabolic equivalent. At rest there were no ST or T wave changes noted to suggest ischemia and at peak infusion nonspecific ST changes were noted which did not meet the criteria for ischemia. No clinical angina is noted. The final blood pressure was 148/90mmHg. Myocardial perfusion protocol. 12 mCi of technetium 99m sestamibi was injected at rest. 0.4 mg of regadenoson was infused per usual protocol. At peak infusion 36 mCi of technetium 99m sestamibi was injected stress images were obtained stress and rest images were reconstructed and compared in the short axis vertical long and horizontal long axis. Gated images were also obtained. Perfusion SPECT analysis: Review of the stress images demonstrate normal uptake of tracer noted in all areas of the myocardium. The resting images similar demonstrated normal uptake of tracer noted in all areas of the myocardium. No areas of reversibility are noted to suggest ischemia and no previous infarct is noted. Gated SPECT analysis: The gated ejection fraction is 67%. Conclusion: Normal pharmacologic myocardial perfusion stress test. Preserved ejection fraction.
== END | disposition home or self-care (01) ==
PROVIDERS: PCP Internal Medicine; Referring Provider Physician Assistant Medical; Visit Provider Physician Assistant Medical
DX: R07.9 Chest pain, unspecified (principal)
CPT/HCPCS: 78452; 93017; A9500; A4216; J2785

== ENCOUNTER 2024-03-03 15:53 | Emergency (ER) | payer MEDICARE, OTHER, SELFPAY ==
[2024-03-03 15:53] VITALS: BP 140/77; PULSE 95; RESP 16; TEMP 36.8; O2SAT 97
--- NOTE | 2024-03-03 16:06 | EKG12_ITS ---
Test Reason : Blood Pressure : / mmHG Vent. Rate : 090 BPM Atrial Rate : 090 BPM P-R Int : 180 ms QRS Dur : 092 ms QT Int : 396 ms P-R-T Axes : 044 -31 -15 degrees QTc Int : 484 ms Normal sinus rhythm Left axis deviation Incomplete right bundle branch block Nonspecific ST and T wave abnormality Abnormal ECG Confirmed by Alexx Mcintyre ([id number]), editorial director ANY RAMIREZ ([id number]) on 03/04/2024 10:22:07 AM Referred By: Confirmed By:Alexx Mcintyre
--- NOTE | 2024-03-03 16:07 | EX.ED.DYSGE1 ---
HPI History of Present Illness Chief Complaint: General Illness Detail of Chief Complaint: Not feeling well x 2 days Narrative Narrative: Patient presents to the emergency department complaint of just not feeling well for last 2 to 3 days. Patient states that she has noticed increased heart rate and her blood pressure is higher than normal and is noted that her pressure is gone up to 140 systolic or normally it is in the 1 teens. Patient denies chest pain but just has some mild tightness and at times feels somewhat short of breath. She has been feeling somewhat lightheaded. She has been under increased stress of late and that her son and his girlfriend moved in with them but they will be leaving in about 2 weeks. Patient took a Xanax this morning around 9 AM but did not seem to help her very much. She think she may need some Ativan. Denies recent illness. [facility] Medical History Acute right flank pain Allergic rhinitis Anxiety Bloating Cancer Cardiology follow-up encounter Cervical disc herniation Closed fracture of left proximal humerus Depression Diverticulosis Dysmetabolic syndrome Epigastric pain Essential (primary) hypertension Fibromyalgia Fracture of talus of left ankle, closed GERD (gastroesophageal reflux disease) High cholesterol History of cataract History of Clostridium difficile infection History of echocardiogram History of gastroesophageal reflux (GERD) History of hiatal hernia History of IBS History of stress test Hyperlipidemia Hypothyroidism Injury of back Internal hemorrhoids Left ankle strain Leg cramps Medullary sponge kidney Non-smoker Osteoarthritis Osteoporosis Paroxysmal SVT (supraventricular tachycardia) Sacro-iliac pain Thyroid disease Home Medications ?Medication ?Instructions ?Recorded ?Last Taken ?Type citalopram 40 mg tablet 40 mg PO QHS depression 09/24/16 01/08/19 History 40 MG levothyroxine 50 mcg tablet 50 mcg PO DAILY thyroid 09/24/16 04/06/23 05:00 History pantoprazole 40 mg tablet,delayed 40 mg PO BID gerd 09/24/16 04/06/23 05:00 History release alprazolam 0.5 mg tablet 0.5 mg PO QHS 12/09/16 04/06/23 05:00 History acetaminophen 650 mg 1,300 mg PO PRN PRN Pain 09/28/18 01/08/19 History tablet,extended release 1300 MG buspirone 15 mg tablet 15 mg PO DAILY depression/anxiety 09/28/18 01/08/19 History 15 MG tizanidine 4 mg tablet 4 mg PO QHS muscle spasms 09/28/18 01/08/19 History 4 MG cholecalciferol (vitamin D3) 125 125 mcg PO DAILY 01/31/21 Unknown History mcg (5,000 unit) tablet [id number] 8 mg-folic 400 1 tablet PO DAILY 01/31/21 Unknown History mcg-K 50 mcg-lutein 300 mcg tablet (Centrum Silver Women) pregabalin 75 mg capsule 75 mg PO DAILY 04/11/22 Unknown History meloxicam 15 mg tablet 15 mg PO DAILY 11/14/22 Unknown History bupropion HCl 150 mg tablet,12 hr 150 mg PO BID 04/01/23 Unknown History sustained-release ondansetron 4 mg disintegrating 4 mg PO Q8H PRN PRN Nausea #20 tabs 09/07/23 Unknown Rx tablet sucralfate 100 mg/mL oral 10 ml PO BID #1,000 mL 09/07/23 Unknown Rx suspension (Carafate) colestipol 1 gram tablet (Colestid) 1 g PO ONCE 01/06/24 Unknown History dicyclomine 10 mg capsule 10 mg PO BID PRN 01/06/24 Unknown History fexofenadine 180 mg tablet 180 mg PO DAILY 01/06/24 Unknown History (Allergy Relief (fexofenadine)) trospium 20 mg tablet 20 mg PO BID 01/06/24 Unknown History metoprolol succinate 25 mg 12.5 mg (1/2 x 25 mg) PO DAILY #90 01/07/24 Unknown Rx tablet,extended release 24 hr tabs lisinopril 5 mg tablet 5 mg PO DAILY #90 tabs 01/29/24 Unknown Rx lorazepam 1 mg tablet (Ativan) 1 mg PO TID PRN anxiety #10 tabs 03/03/24 Unknown Rx Allergy/AdvReac Type Severity Reaction Status Date / Time latex Allergy COUGHING Verified 03/03/24 15:55 AND SORE THROAT Family History Father , Age 43 Hodgkins disease Sister Osteoporosis Mother Myocardial infarction Other Hypertension Surgical History History of appendectomy History of bladder surgery History of bladder suspension procedure History of bunionectomy History of cataract extraction History of hysterectomy History of left oophorectomy History of lumbar laminectomy (09/2019) History of radiofrequency ablation procedure for cardiac arrhythmia (08/07/21) History of right oophorectomy History of stem cell transplant History of total left hip arthroplasty Social History household members: spouse Smoking Status: Never smoker alcohol intake: current alcohol intake frequency: a few times a month Alcohol type: wine substance use type: does not use caffeine: Yes Type: coffee Number of servings: 2 what type of physical activity do you participate in: none ROS ROS ED Review of Systems ROS Unobtainable: other Constitutional Constitutional ED: Reports lethargy; Denies chills, fever(s), sweats or weight loss Eyes Eyes: Denies blurry vision, change in vision or diplopia ENT ENT ED: Denies rhinorrhea or sore throat Cardiovascular Cardiovascular: Reports racing heartbeat; Denies chest pain or orthopnea Respiratory/Chest Respiratory/Chest: Reports dyspnea and dyspnea on exertion; Denies cough, orthopnea or sputum Gastrointestinal Gastrointestinal: Denies abdominal pain, diarrhea, nausea or vomiting Genitourinary Genitourinary ED: Denies dysuria, hematuria or urinary frequency Musculoskeletal Musculoskeletal: Denies arthralgias, back pain, myalgias or neck pain Integumentary Denies abscess, Abrasions or rash Neurologic Neurologic: Reports other Details: Lightheaded, shaky ; Denies headache(s) or weakness Psychiatric Psychiatric: Denies anxiety, depression or suicidal thoughts Endocrine Endocrinology: Denies polydipsia, polyphagia or polyuria Hematologic/Lymphatic Hematologic/Lymphatic: Denies easy bleeding, easy bruising or lymphadenopathy Allergic/Immunologic Allergic/Immunologic ED: Denies mouth swelling, tongue swelling or urticaria EXAM Physical Exam Const Vital Signs: 03/03/24 15:53 03/03/24 16:20 Temperature 98.2 F Temperature Source Temporal Pulse Rate 95 Respiratory Rate 16 Respiratory Effort Normal Non-Labored Respiratory Pattern Normal Blood Pressure 140/77 H Blood Pressure Mean 98 Pulse Ox 97 Oxygen Delivery Method Room Air Positive well nourished and well developed General Appearance ED: well developed and NAD HEENT Reports TM's clear and moist mucous membranes normocephalic and atraumatic; Negative for trauma or tenderness Tympanic Membrane ED: Yes TM's clear Eyes PERRL and EOMs intact bilaterally General Eye ED: Negative for pale conjunctiva or scleral icterus Neck no lymphadenopathy, supple and no JVD General: Negative for tenderness Chest Wall inspection of chest normal and palpation of chest normal Chest: Negative for tenderness Resp normal respiratory effort and clear to auscultation bilaterally Effort and Inspection: Negative for respiratory distress or pain with movement Auscultation: Negative for rhonchi, wheezes or diminished lung sounds Cardio regular rate, regular rhythm, S1 normal heart sound, S2 normal heart sound and no murmurs Peripheral Pulses: pulses 2+ throughout GI normal to inspection, nondistended, normoactive bowel sounds, soft to palpation, non-tender, non-distended and no masses Back/Spine no CVA tenderness and no thoracic nor lumbar tenderness Extremity normal to inspection General Extremety ED: Negative for edema General Extremity: Negative for edema Neuro oriented x3, CN's II-XII intact bilaterally, no sensory deficits noted and gait normal Sensorium / Orientation: awake, alert, oriented to person, oriented to place and oriented to time Motor Exam: strength 5/5 throughout and strength abnormal Psych mental status grossly normal Skin no rashes or lesions noted and no wounds MDM MDM MDM Narrative Medical decision making narrative: Patient presents with complaint not feeling well increase stressors at home. She describes some dyspnea and lightheadedness and racing heart as well as elevated blood pressure. She was visibly shaky and jittery and tearful as I was talking to her. She tells me that February is typically a difficult month for her as she lost her son on February 18 and now she had other son moved in with girlfriend and cats and she has been under increased stress. IV line established. EKG obtained arrival shows sinus rhythm with a rate of 90 bpm with incomplete right bundle and nonspecific ST changes. CBC with differential count of 14.7 with hemoglobin level 0.3 and platelet count of 389. Chemistries unremarkable. D-dimer when corrected for age is normal at 0.56. BUN 14 creatinine 1.29. Glucose 120. Troponin normal at 9. I did give patient a milligram of Ativan IV and she felt markedly improved. This point suspect likely anxiety/stress reaction. Lab Data Attestation: I reviewed the patient's lab results. Labs: Laboratory Results - last 24 hr 03/03/24 16:12 WBC 14.7 H RBC 3.99 L Hgb 11.3 L Hct 35.8 L MCV 89.7 MCH 28.3 MCHC 31.6 L RDW Std Deviation 49.2 H RDW Coeff of Garret 15.0 H Plt Count 389 MPV 8.9 Immature Gran % (Auto) 0.700 Neut % (Auto) 87.4 H Lymph % (Auto) 6.4 L Glynn % (Auto) 5.2 Eos % (Auto) 0.0 Baso % (Auto) 0.3 Absolute Neuts (auto) 12.8 H Absolute Lymphs (auto) 0.94 Nucleated RBC % 0 D-Dimer Quant (PE/DVT) 0.56 H* Sodium 139 Potassium 3.2 L Chloride 105 Carbon Dioxide 23.0 Anion Gap 11 BUN 14 Creatinine 1.29 H Est GFR (MDRD) Af Amer 52 L Est GFR (MDRD) Non-Af 43 L BUN/Creatinine Ratio 10.9 Glucose 120 H Calcium 9.6 Troponin I High Sens 9 EKG Initial EKG: Attestation: I personally reviewed and interpreted this EKG as follows: Comments: Sinus rhythm with ventricular rate of [address] changes Discharge Plan Triage Chief Complaint: General Illness ED Provider: Cecilia Mahajan Dx/Rx/DC Orders Clinical Impression: Anxiety, Tachycardia, Hypertension Instructions: ED Anxiety Reaction, ED High Blood Pressure Hypertension Prescriptions: New lorazepam [Ativan] 1 mg tablet 1 mg PO TID PRN (Reason: anxiety) Qty: 10 0RF No Action cholecalciferol (vitamin D3) 125 mcg (5,000 unit) tablet 125 mcg PO DAILY Centrum Silver Women 8 mg iron-400 mcg-300 mcg tablet 1 tablet PO DAILY pregabalin 75 mg capsule 75 mg PO DAILY meloxicam 15 mg tablet 15 mg PO DAILY fexofenadine [Allergy Relief (fexofenadine)] 180 mg tablet 180 mg PO DAILY colestipol [Colestid] 1 gram tablet 1 g PO ONCE dicyclomine 10 mg capsule 10 mg PO BID PRN trospium 20 mg tablet 20 mg PO BID Rx Instructions: administer on an empty stomach lisinopril 5 mg tablet 5 mg PO DAILY Qty: 90 3RF citalopram 40 MG tablet 40 mg PO QHS levothyroxine 50 MCG tablet 50 mcg PO DAILY pantoprazole 40 MG tablet 40 mg PO BID alprazolam 0.5 MG tablet 0.5 mg PO QHS tizanidine 4 MG tablet 4 mg PO QHS acetaminophen 650 MG tablet extended release 1,300 mg PO PRN PRN (Reason: Pain) buspirone 15 MG tablet 15 mg PO DAILY bupropion HCl 150 mg tablet sustained-release 12 hr 150 mg PO BID Patient Comments: TAKE 1 TABLET BY MOUTH TWICE DAILY DIRECTED sucralfate [Carafate] 100 mg/mL suspension 10 ml PO BID Qty: 1000 0RF ondansetron 4 mg tablet,disintegrating 4 mg PO Q8H PRN PRN (Reason: Nausea) Qty: 20 0RF metoprolol succinate 25 mg tablet extended release 24 hr 12.5 mg PO DAILY Qty: 90 3RF Primary Care Provider: Carmel Goncalves Referrals: Carmel Goncalves MD [Primary Care Provider] - 3-5 Days Print Language: Kazakh Disposition Disposition: Home, Self Care
[2024-03-03] MEDS: 0.9% Normal Saline (1000mL) 1,000 ML 150 ML IV (16:14)
[2024-03-03] MEDS: LORazepam 2 MG/ML Syringe 1 MG IV (16:15)
[2024-03-03 16:22] LABS: Absolute Lymphocyte Count 0.94 X10^3/uL (0.83-4.51); Absolute Neutrophil Count 12.8 X10^3/uL (2.0-7.7); Basophil# 0.04 X10^3/uL; Basophil% 0.3 % (0-1); Hematocrit 35.8 % (37-47); Hemoglobin 11.3 g/dL (12.0-15.0); Lymphocyte # 0.94 X10^3/ul (0.83-4.51); Lymphocyte % 6.4 % (19-41); Mean Corp Hgb Conc 31.6 g/dL (32-36); Mean Corpuscular Hgb 28.3 pg (27.0-32.0); Mean Corpuscular Volume 89.7 fL (81-99); Mean Platelet Vol. 8.9 fl (6.2-12.0); Monocyte# 0.76 X10^3/uL; Monocyte% 5.2 % (0-10); NRBC Flagged by Analyzer 0 % (0-5); Neutrophil # 12.82 X10^3/uL (2.7-7.7); Neutrophil % 87.4 % (47-70); Platelet Count 389 K/mm3 (150-450); RBC Distribution Width SD 49.2 fl (35.1-43.9); Red Blood Count 3.99 M/mm3 (4.2-5.4); White Blood Count 14.7 K/mm3 (4.4-11.0)
[2024-03-03 16:46] LABS: Anion Gap 11 (5-15); BUN 14 mg/dL (7-18); BUN/Creat Ratio 10.9 RATIO (10-20); Calcium,Total 9.6 mg/dL (8.5-10.1); Chloride 105 mmol/L (98-107); Creatinine, Serum 1.29 mg/dL (0.55-1.02); EST Glomerular Filtration Rate 43 mL/min (>60); Est Glom Filt Rate - Afr Amer 52 mL/min (>60); Glucose 120 mg/dL (74-106); Potassium 3.2 mmol/L (3.5-5.1); Sodium Level 139 mmol/L (136-145); Troponin-I HS 9 pg/mL (3.0-54.0)
[2024-03-03 16:48] LABS: D-Dimer Quantitative (DVT/PE) 0.56 FEU/ug/m (0.27-0.49)
[2024-03-03 17:21] VITALS: BP 146/76; PULSE 83; RESP 20; TEMP 36.8; O2SAT 96
== END 2024-03-03 17:23 | disposition home or self-care (01) ==
PROVIDERS: Emergency Provider Emergency Medicine; PCP Internal Medicine; Visit Provider Emergency Medicine
DX: F41.9 Anxiety disorder, unspecified (principal); I10 Essential (primary) hypertension; R06.02 Shortness of breath; F32.A Depression, unspecified; E78.00 Pure hypercholesterolemia, unspecified; E03.9 Hypothyroidism, unspecified; Z79.890 Hormone replacement therapy; Z79.899 Other long term (current) drug therapy
CPT/HCPCS: 80048; 84484; 85025; 85379; 93005; 96361; 96374; 99284; J7030; A4216

== ENCOUNTER → 2024-03-08 | Outpatient (CLI) | payer MEDICARE, OTHER, SELFPAY | END | disposition home or self-care (01) | LOC: SL 19:57 | PROVIDERS: PCP Internal Medicine; Referring Provider Physician Assistant Medical; Visit Provider Physician Assistant Medical | DX: G47.33 Obstructive sleep apnea (adult) (pediatric) (principal) | CPT/HCPCS: 95810 ==

== ENCOUNTER 2024-08-12 12:45 | Emergency (ER) | payer MEDICARE, OTHER, SELFPAY ==
[2024-08-12 12:46] VITALS: BP 137/80; PULSE 100; RESP 20; TEMP 36; O2SAT 100
--- NOTE | 2024-08-12 15:07 | EDS_ITS ---
HPI History of Present Illness Chief Complaint: Back Informant: patient Narrative Narrative: Patient is a 74 year old year old female with history of chronic pain of her back, scoliosis, prior compression fracture with kyphoplasty, prior appendectomy with laminectomy of L4/5 and L5/S1 performed at [facility]. She is presenting with months of worsening back pain. Patient states she has been taking 1300 mg of Tylenol twice a day, tizanidine 4 mg, Mobic daily as well as topical Voltaren, Salonpas, Nervivie and Biofreeze that she alternates with no relief. The pain continues to progress. She states it is her entire thoracic and lumbar spine and then goes to her left hip and then down her left leg. She also notes that she think she has a herniated disc in her neck because when she turns her head a certain way she gets pain that shoots down the lower part of her left arm. She is not on any blood thinners. Denies any bowel or bladder incontinence. She feels that her leg was weak but thinks secondary to pain. She denies any dragging of her leg. She states that she cannot find a position of comfort in every position is uncomfortable. States is not sleeping at night. She has a history of a left total arthroplasty. She states movements do make the pain worse. Is seen Dr. Samson in 2 weeks ago was put on a Medrol Dosepak which only had improvement for the first 3 days. Has appointment to see Dr. Fierro next week. Has previously seen Dr. Anna for pain management but had not seen him in some time. Denies any recent falls or injuries. [facility] Medical History Vitamin D deficiency History of Clostridium difficile infection Cancer Thyroid disease Osteoarthritis High cholesterol Injury of back History of hiatal hernia History of IBS Non-smoker Leg cramps History of echocardiogram History of stress test Cardiology follow-up encounter Medullary sponge kidney Internal hemorrhoids Fibromyalgia GERD (gastroesophageal reflux disease) Dysmetabolic syndrome Diverticulosis Cervical disc herniation Anxiety Allergic rhinitis Bloating Epigastric pain Fracture of talus of left ankle, closed Left ankle strain Acute right flank pain Closed fracture of left proximal humerus History of cataract History of gastroesophageal reflux (GERD) Sacro-iliac pain Paroxysmal SVT (supraventricular tachycardia) Essential (primary) hypertension Depression Hypothyroidism Hyperlipidemia Home Medications ?Medication ?Instructions ?Recorded ?Last Taken ?Type citalopram 40 mg tablet 40 mg PO QHS depression 09/24/16 01/08/19 History 40 MG levothyroxine 50 mcg tablet 50 mcg PO DAILY thyroid 09/24/16 04/06/23 05:00 History pantoprazole 40 mg tablet,delayed 40 mg PO BID gerd 09/24/16 04/06/23 05:00 History release tizanidine 4 mg tablet 4 mg PO QHS muscle spasms 09/28/18 01/08/19 History 4 MG cholecalciferol (vitamin D3) 125 125 mcg PO DAILY 01/31/21 Unknown History mcg (5,000 unit) tablet meloxicam 15 mg tablet 15 mg PO DAILY 11/14/22 Unknown History bupropion HCl 150 mg tablet,12 hr 150 mg PO BID 04/01/23 Unknown History sustained-release sucralfate 100 mg/mL oral 10 ml PO BID #1,000 mL 09/07/23 Unknown Rx suspension (Carafate) fexofenadine 180 mg tablet 180 mg PO DAILY 01/06/24 Unknown History (Allergy Relief (fexofenadine)) lisinopril 2.5 mg tablet 2.5 mg PO DAILY #90 tabs 04/07/24 Unknown Rx acetaminophen 650 mg 1,300 mg PO Q12H PRN Pain 06/10/24 Unknown History tablet,extended release lorazepam 1 mg tablet (Ativan) 1 mg PO BID PRN anxiety 06/10/24 Unknown History denosumab 60 mg/mL subcutaneous 60 mg subcut [id number] #1 mL 07/19/24 Unknown Rx syringe (Prolia) oxycodone 5 mg tablet 5 mg PO Q6H PRN pain 3 days #12 08/12/24 Unknown Rx tabs Allergy/AdvReac Type Severity Reaction Status Date / Time latex Allergy COUGHING Verified 08/12/24 12:49 AND SORE THROAT Family History Father , Age 43 Hodgkins disease Sister Osteoporosis Mother Myocardial infarction Other Hypertension Surgical History History of bladder surgery History of stem cell transplant History of left oophorectomy History of radiofrequency ablation procedure for cardiac arrhythmia (08/07/21) History of lumbar laminectomy (09/2019) History of total left hip arthroplasty History of cataract extraction History of bunionectomy History of bladder suspension procedure History of appendectomy History of hysterectomy History of right oophorectomy Social History household members: spouse Smoking Status: Never smoker alcohol intake: current alcohol intake frequency: holidays/special occasions only Alcohol type: wine substance use type: does not use caffeine: Yes Type: coffee Number of servings: 2 what type of physical activity do you participate in: none ROS ROS ED Constitutional Constitutional ED: Denies chills or fever(s) Cardiovascular Cardiovascular: Denies chest pain Respiratory/Chest Respiratory/Chest: Reports dyspnea on exertion and other Details: chronic, no change Gastrointestinal Gastrointestinal: Denies nausea or vomiting Genitourinary Genitourinary ED: Denies dysuria, hematuria or urinary frequency Musculoskeletal Musculoskeletal: Reports arthralgias and back pain; Denies neck pain Integumentary Denies rash Neurologic Neurologic: Denies paresthesias or weakness Psychiatric Psychiatric: Reports anxiety Hematologic/Lymphatic Hematologic/Lymphatic: Denies easy bleeding or easy bruising EXAM Physical Exam Const Vital Signs: 08/12/24 12:46 Temperature 96.8 F L Temperature Source Temporal Pulse Rate 100 Respiratory Rate 20 H Blood Pressure 137/80 H Blood Pressure Mean 99 Pulse Ox 100 Oxygen Delivery Method Room Air Positive well nourished and well developed General Appearance ED: well developed and NAD HEENT Reports moist mucous membranes Neck supple Resp normal respiratory effort and clear to auscultation bilaterally Cardio regular rate and regular rhythm Cardio Narrative: 2+ radial and DP pulses GI normal to inspection, nondistended, normoactive bowel sounds, soft to palpation and non-tender Back/Spine Back/Spine Narrative: Scoliosis noted of the back. Paraspinal tenderness on the left mid thoracic region. No midline tenderness. Diffuse L5 and sacral tenderness to palpation more prominent on the left. Tenderness palpation over the left piriformis. Extremity normal to inspection General Extremety ED: Negative for edema General Extremity: Negative for edema Neuro oriented x3 and no sensory deficits noted Neuro Narrative: 5/5 strength with plantar dorsiflexion. 4/5 strength with hip flexion on the left however patient states is very painful for her to try to do this. Sensation intact in all dermatomes of the legs and equal. Sensorium / Orientation: alert Psych mental status grossly normal Skin no rashes or lesions noted and no wounds MDM MDM MDM Narrative Medical decision making narrative: Patient is evaluated for acute on chronic back pain. She has spasm of the thoracic paraspinal on the left and also with seems like piriformis syndrome of the left lumbar spine. She has a negative straight leg test bilaterally however. Patient does not report any bowel or bladder symptoms is not any red flag symptoms for cauda equina syndrome. She has not had any new trauma and I do not think she requires any repeat imaging. I do not think she requires an emergent MRI. Has follow-up with spine next week. Will give the patient a course of IM morphine and then a short course of oxycodone for pain control until she can follow-up. Also suggest she follow back up with pain management. Patient has a walker as well as a cane to use at home. Patient initially given 4 mg IM morphine for pain control. Continues to have pain. Will be redosed with 6 mg IM morphine. Will be given a short course of oxycodone for further pain control. Discharge Plan Triage Chief Complaint: Back ED Provider: Tracie Martinez Dx/Rx/DC Orders Clinical Impression: Radiculopathy due to lumbar intervertebral disc disorder, Back pain, thoracic Instructions: ED Back Pain (Acute or Chronic), ED Back Spasm, No Trauma Prescriptions: New oxycodone 5 mg tablet 5 mg PO Q6H PRN (Reason: pain) 3 Days Qty: 12 0RF No Action cholecalciferol (vitamin D3) 125 mcg (5,000 unit) tablet 125 mcg PO DAILY meloxicam 15 mg tablet 15 mg PO DAILY fexofenadine [Allergy Relief (fexofenadine)] 180 mg tablet 180 mg PO DAILY lisinopril 2.5 mg tablet 2.5 mg PO DAILY Qty: 90 3RF lorazepam [Ativan] 1 mg tablet 1 mg PO BID PRN (Reason: anxiety) citalopram 40 MG tablet 40 mg PO QHS levothyroxine 50 MCG tablet 50 mcg PO DAILY pantoprazole 40 MG tablet 40 mg PO BID tizanidine 4 MG tablet 4 mg PO QHS acetaminophen 650 mg tablet extended release 1,300 mg PO Q12H PRN (Reason: Pain) bupropion HCl 150 mg tablet sustained-release 12 hr 150 mg PO BID Patient Comments: TAKE 1 TABLET BY MOUTH TWICE DAILY DIRECTED sucralfate [Carafate] 100 mg/mL suspension 10 ml PO BID Qty: 1000 0RF Prolia 60 mg/mL syringe 60 mg subcut [id number] Qty: 1 1RF Primary Care Provider: Carmel Goncalves Referrals: Nathan Álvarez MD [Med Staff - Active Staff] - As Needed Carmel Goncalves MD [Primary Care Provider] - Activity Restrictions/Additional Instructions: Continue taking your medications as prescribed. Will add in oxycodone for further pain control. I do recommend taking a stool softener such as MiraLAX or possibly even senna to help with opioid-induced constipation. As we discussed do not take more than the 1000 mg of Tylenol at a time. You can take this 3 times a day however. Please follow-up with pain management and/or spine with Dr. Sahu as we discussed. If you feel you cannot function or ambulate at home please return to the emergency room. Print Language: Yakut Disposition Disposition: Home, Self Care
[2024-08-12] MEDS: Morphine 4 MG/ML Syringe IM (15:18)
[2024-08-12 15:46] VITALS: BMI 30.2
[2024-08-12] MEDS: morphine 10 MG/ML Syringe 6 MG IM (16:01)
[2024-08-12 16:36] VITALS: BP 132/86; PULSE 100; RESP 19; TEMP 36; O2SAT 100
[2024-08-12] MEDS: oxyCODONE 5 MG Tablet PO (16:39)
== END 2024-08-12 16:59 | disposition home or self-care (01) ==
PROVIDERS: Emergency Provider Emergency Medicine; PCP Internal Medicine; Referring Provider Emergency Medicine; Visit Provider Emergency Medicine
DX: M51.16 Intervertebral disc disorders with radiculopathy, lumbar region (principal); M50.20 Other cervical disc displacement, unspecified cervical region; I10 Essential (primary) hypertension; M54.9 Dorsalgia, unspecified; G89.29 Other chronic pain; M79.7 Fibromyalgia; M41.9 Scoliosis, unspecified; E78.00 Pure hypercholesterolemia, unspecified; E03.9 Hypothyroidism, unspecified; K21.9 Gastro-esophageal reflux disease without esophagitis; Z79.890 Hormone replacement therapy; Z79.899 Other long term (current) drug therapy; Z90.49 Acquired absence of other specified parts of digestive tract; Z90.710 Acquired absence of both cervix and uterus
CPT/HCPCS: 96372; 99282; A4216

== ENCOUNTER 2024-08-31 14:13 | Emergency (ER) | payer MEDICARE, OTHER, SELFPAY ==
[2024-08-31 14:13] VITALS: BP 156/109; PULSE 93; RESP 18; TEMP 36.8; O2SAT 96
[2024-08-31 14:15] VITALS: BMI 30.3
--- NOTE | 2024-08-31 14:54 | EDS_ITS ---
HPI History of Present Illness Chief Complaint: Back Informant: patient and spouse/S.O. Onset/Context/Timing Onset: Weeks Context: Sudden Onset (Patient was seen August 18. She had follow-up with Dr. Sahu. She is scheduled for MRI September 19.) Chronic pain exacerbated by: Movement. Timing: Continuous Quality: Aching Location: Lumbar, Buttock, Right Leg and Left Leg Current Severity: Severe Maximum Severity: Severe Worsened by: improves with Movement, Ambulation, Bending and Lifting Relieved by: Nothing Associated Symptoms Associated Symptoms: Radiation to Left Leg; Negative for Numbness, Tingling, Rad iation to Right Leg, Fever, Abdominal Pain, Dysuria, Unable to Ambulate, Unable to Transfer, Urinary Retention, Urinary Incontinence, Constipation or Fecal Incontinence Narrative Narrative: Patient is a 74-year-old woman. She was seen on August 18 for back pain. She had follow-up with Dr. Sahu. She is scheduled for outpatient MRI in September. Patient denies bowel or bladder dysfunction. She denies saddle paresthesia or anesthesia. She complains of pain radiating down the posterior aspect of her left leg. She denies foot drop. Denies buckling of her knee going up or down the 1 or 2 steps to enter her home. She denies numbness in the left or right leg. She has had no recent dental procedure. She denies fever, chills night sweats. Her low back pain is bilateral. There is no history of recent trauma. Prior similar symptoms: Yes Recent Illness/Hospitalization: Yes (Seen August 12 for back pain and march 03 for anxiety.) [facility] Medical History Vitamin D deficiency History of Clostridium difficile infection Cancer Thyroid disease Osteoarthritis High cholesterol Injury of back History of hiatal hernia History of IBS Non-smoker Leg cramps History of echocardiogram History of stress test Cardiology follow-up encounter Medullary sponge kidney Internal hemorrhoids Fibromyalgia GERD (gastroesophageal reflux disease) Dysmetabolic syndrome Diverticulosis Cervical disc herniation Anxiety Allergic rhinitis Bloating Epigastric pain Fracture of talus of left ankle, closed Left ankle strain Acute right flank pain Closed fracture of left proximal humerus History of cataract History of gastroesophageal reflux (GERD) Sacro-iliac pain Paroxysmal SVT (supraventricular tachycardia) Essential (primary) hypertension Depression Hypothyroidism Hyperlipidemia Home Medications ?Medication ?Instructions ?Recorded ?Last Taken ?Type citalopram 40 mg tablet 40 mg PO QHS depression 09/24/16 01/08/19 History 40 MG levothyroxine 50 mcg tablet 50 mcg PO DAILY thyroid 09/24/16 04/06/23 05:00 History pantoprazole 40 mg tablet,delayed 40 mg PO BID gerd 09/24/16 04/06/23 05:00 Hi story release tizanidine 4 mg tablet 4 mg PO QHS muscle spasms 09/28/18 01/08/19 History 4 MG cholecalciferol (vitamin D3) 125 125 mcg PO DAILY 01/31/21 Unknown History mcg (5,000 unit) tablet meloxicam 15 mg tablet 15 mg PO DAILY 11/14/22 Unknown History bupropion HCl 150 mg tablet,12 hr 150 mg PO BID 04/01/23 Unknown History sustained-release sucralfate 100 mg/mL oral 10 ml PO BID #1,000 mL 09/07/23 Unknown Rx suspension (Carafate) fexofenadine 180 mg tablet 180 mg PO DAILY 01/06/24 Unknown History (Allergy Relief (fexofenadine)) lisinopril 2.5 mg tablet 2.5 mg PO DAILY #90 tabs 04/07/24 Unknown Rx acetaminophen 650 mg 1,300 mg PO Q12H PRN Pain 06/10/24 Unknown History tablet,extended release lorazepam 1 mg tablet (Ativan) 1 mg PO BID PRN anxiety 06/10/24 Unknown History denosumab 60 mg/mL subcutaneous 60 mg subcut [id number] #1 mL 07/19/24 Unknown Rx syringe (Prolia) oxycodone 5 mg tablet 5 mg PO Q6H PRN pain 3 days #12 08/12/24 Unknown Rx tabs oxycodone-acetaminophen 5 mg-325 1 tab PO Q6H PRN PRN pain 7 days 08/31/24 Unknown Rx mg tablet #28 TABLETS Allergy/AdvReac Type Severity Reaction Status Date / Time latex Allergy COUGHING Verified 08/18/24 12:40 AND SORE THROAT Family History Father , Age 43 Hodgkins disease Sister Osteoporosis Mother Myocardial infarction Other Hypertension Surgical History History of bladder surgery History of stem cell transplant History of left oophorectomy History of radiofrequency ablation procedure for cardiac arrhythmia (08/07/21) History of lumbar laminectomy (09/2019) History of total left hip arthroplasty History of cataract extraction History of bunionectomy History of bladder suspension procedure History of appendectomy History of hysterectomy History of right oophorectomy Social History household members: spouse Smoking Status: Never smoker alcohol intake: current alcohol intake frequency: holidays/special occasions only Alcohol type: wine substance use type: does not use caffeine: Yes Type: coffee Number of servings: 2 what type of physical activity do you participate in: none ROS ROS ED Constitutional Constitutional ED: Denies chills, fever(s), subjective, sweats or weight loss Cardiovascular Cardiovascular: Denies chest pain, orthopnea, palpitations or paroxysmal nocturnal dyspnea Respiratory/Chest Respiratory/Chest: Denies dyspnea, dyspnea on exertion, orthopnea or paroxysmal nocturnal dyspnea Gastrointestinal Gastrointestinal: Denies abdominal pain, constipation, diarrhea, nausea or vomiting Genitourinary Genitourinary ED: Denies dysuria, hematuria or urinary frequency Musculoskeletal Musculoskeletal: Reports back pain Integumentary Denies rash Neurologic Neurologic: Denies paresthesias or weakness Hematologic/Lymphatic Hematologic/Lymphatic: Denies easy bleeding or easy bruising EXAM Physical Exam Const Vital Signs: 08/31/24 14:13 08/31/24 16:13 Temperature 98.2 F Temperature Source Oral Pulse Rate 93 65 Respiratory Rate 18 19 H Blood Pressure 156/109 H 128/62 H Blood Pressure Mean 124 84 Pulse Ox 96 91 Oxygen Delivery Method Room Air Room Air Positive well nourished and well developed Constitutional Narrative: Patient appears uncomfortable. She grimaces with minimal movement. General Appearance ED: well developed; Negative for pallor HEENT Reports moist mucous membranes HEENT Narrative: Head is atraumatic normocephalic. Ears normal. Nares patent. Eyes PERRL and EOMs intact bilaterally General Eye ED: Negative for pale conjunctiva or scleral icterus Neck no lymphadenopathy, supple and no JVD Resp normal respiratory effort and clear to auscultation bilaterally Cardio regular rate, regular rhythm, S1 normal heart sound, S2 normal heart sound and no murmurs GI normal to inspection, nondistended, normoactive bowel sounds, soft to palpation, non-tender, non-distended and no masses GI Narrative: There is no palp pulsatile mass or abdominal bruit. Back/Spine normal to inspection; Negative for no thoracic nor lumbar tenderness General Back: Negative for CVA tenderness Cervical Spine: Negative for cervical spine tenderness Thoracic Spine / Upper Back: paraspinal muscle tenderness Lumbar Spine / Lower Back: ROM limited and straight leg raise negative bilaterally Extremity normal to inspection and no clubbing, cyanosis or edema Extremity Narrative: PT and DP pulse are 2+ and symmetric. Neuro oriented x3 and no sensory deficits noted Neuro Narrative: Normal sensation L3-S1 dermatome. EHL is intact. 5/5 strength plantar and dorsiflexion. There is no clonus at the ankles. Negative Babinski sign bilaterally. Sensorium / Orientation: alert Motor Exam: strength 5/5 throughout Deep Tendon Reflexes: Rt Patellar (L4): 3+, Lt Patellar (L4): 3+, Rt Ankle (S1): 3+ and Lt Ankle (S1): 3+ Deep Tendon Reflexes Back: Rt Patellar (L4): 3+, Lt Patellar (L4): 3+, Rt Ankle (S1): 3+ and Lt Ankle (S1): 3+ Plantar Reflex: Downgoing: bilateral Psych Psych Narrative: Patient became tearful when I informed her that at this point I do not have an indication for emergent MRI. Skin no rashes or lesions noted and no wounds General Skin Exam: Negative for jaundice or pallor MDM MDM MDM Narrative Medical decision making narrative: Patient is presently only on Tylenol for pain. Will medicate with Toradol, morphine. She has no history of diabetes, kidney disease, peptic ulcer disease and is on no anticoagulant. Once pain is under control we will have patient ambulate and also have her walk on heels and toes as well as perform 1 legged squat. Treatment and Re-Evaluation Narrative: Patient was reassessed at 1733. She was able to ambulate. There is no foot drop. Patient able to walk on her heels and toes. Patient was able to perform a 1 legged squat. Since patient's control is markedly better plan is to discharge with prescription for Percocet. She was given specific signs and symptoms that would necessitate for her to return and have a stat MRI Discharge Plan Triage Chief Complaint: Back ED Provider: West,Fred Dx/Rx/DC Orders Clinical Impression: Acute exacerbation of chronic low back pain, Essential (primary) hypertension, Spinal stenosis of lumbar region, GERD (gastroesophageal reflux disease), Osteoporosis, Left sided sciatica Instructions: ED Sciatica Prescriptions: New oxycodone-acetaminophen 5-325 mg tablet 1 tab PO Q6H PRN PRN (Reason: pain) 7 Days Qty: 28 0RF No Action cholecalciferol (vitamin D3) 125 mcg (5,000 unit) tablet 125 mcg PO DAILY meloxicam 15 mg tablet 15 mg PO DAILY fexofenadine [Allergy Relief (fexofenadine)] 180 mg tablet 180 mg PO DAILY lisinopril 2.5 mg tablet 2.5 mg PO DAILY Qty: 90 3RF lorazepam [Ativan] 1 mg tablet 1 mg PO BID PRN (Reason: anxiety) citalopram 40 MG tablet 40 mg PO QHS levothyroxine 50 MCG tablet 50 mcg PO DAILY pantoprazole 40 MG tablet 40 mg PO BID tizanidine 4 MG tablet 4 mg PO QHS acetaminophen 650 mg tablet extended release 1,300 mg PO Q12H PRN (Reason: Pain) bupropion HCl 150 mg tablet sustained-release 12 hr 150 mg PO BID Patient Comments: TAKE 1 TABLET BY MOUTH TWICE DAILY DIRECTED sucralfate [Carafate] 100 mg/mL suspension 10 ml PO BID Qty: 1000 0RF oxycodone 5 mg tablet 5 mg PO Q6H PRN (Reason: pain) 3 Days Qty: 12 0RF Prolia 60 mg/mL syringe 60 mg subcut [id number] Qty: 1 1RF Primary Care Provider: Carmel Goncalves Referrals: Carmel Goncalves MD [Primary Care Provider] - Print Language: Greek Disposition Disposition: Home, Self Care
[2024-08-31] MEDS: Ketorolac 15 MG/ML Vial IV (15:03)
[2024-08-31] MEDS: Morphine 4 MG/ML Syringe IV (15:03)
[2024-08-31] MEDS: Ondansetron 4 MG/2 ML Vial IV (15:03)
[2024-08-31] MEDS: HYDROmorphone 0.5 MG/0.5 ML SYRINGE IV (16:08)
[2024-08-31 16:13] VITALS: BP 128/62; PULSE 65; RESP 19; O2SAT 91
[2024-08-31 18:23] VITALS: BP 137/85; PULSE 69; RESP 20; TEMP 36.4; O2SAT 100
== END 2024-08-31 18:23 | disposition home or self-care (01) ==
PROVIDERS: Emergency Provider Emergency Medicine; PCP Internal Medicine; Referring Provider Emergency Medicine; Visit Provider Emergency Medicine
DX: M54.42 Lumbago with sciatica, left side (principal); M48.061 Spinal stenosis, lumbar region without neurogenic claudication; G89.29 Other chronic pain; I10 Essential (primary) hypertension; E78.00 Pure hypercholesterolemia, unspecified; E03.9 Hypothyroidism, unspecified; K21.9 Gastro-esophageal reflux disease without esophagitis; Z79.890 Hormone replacement therapy; Z79.899 Other long term (current) drug therapy
CPT/HCPCS: 96374; 96375; 99283; A4216; J2405

== ENCOUNTER → 2024-09-06 | Outpatient (CLI) | payer MEDICARE, OTHER, SELFPAY | END | disposition home or self-care (01) | LOC: MRI 16:47 | PROVIDERS: PCP Internal Medicine; Referring Provider Orthopaedic Surgery Orthopaedic Surgery of the Spine; Visit Provider Orthopaedic Surgery Orthopaedic Surgery of the Spine | DX: M54.16 Radiculopathy, lumbar region (principal); G95.9 Disease of spinal cord, unspecified; M41.9 Scoliosis, unspecified | CPT/HCPCS: 72141; 72148 ==

== ENCOUNTER → 2024-09-15 | Outpatient (CLI) | payer MEDICARE, OTHER, SELFPAY | END | disposition home or self-care (01) | LOC: LABSPEC 15:53 | PROVIDERS: PCP Internal Medicine; Referring Provider Physician Assistant Surgical; Visit Provider Physician Assistant Surgical | DX: R35.0 Frequency of micturition (principal) | CPT/HCPCS: 87086 ==

== ENCOUNTER 2025-05-03 21:35 | Emergency (ER) | payer MEDICARE, OTHER, SELFPAY ==
[2025-05-03 21:40] VITALS: BP 174/86; PULSE 74; RESP 16; TEMP 36.8; O2SAT 96; BMI 30.2
--- OUTSIDE RECORDS SUMMARY | 2025-05-03 22:01 | XMS RPT_ITS | CCD ---
Author Organization [facility] Care Team Providers Care Pharmacist Helper Name Role Phone EUNICE JOE Primary Care Unavailable JAYDEN REYES Referring UnavailDON Patel Attending Unavailable AR YOUNG Referring Unavailable DON BROOKS Attending Unavailable DON BROOKS Admitting Unavailable EUNICE JOE Primary Care Unavailable Eunice Joe MD Primary Care Provider Dr. Eunice Joe Primary Care Provider Dr. Eunice Joe Referring Provider JOSE Palacios Attending Provider Dr. Ar Young Attending Provider Eunice Joe MD Primary Care Provider Eunice Joe MD Primary Care Provider Dr. Eunice Joe Primary Care Provider Dr. Eunice Joe Referring Provider Roseline CAGE, STORE ASSOCIATE-C Ruth Rodriguez Attending Provider [phone] DR EUNICE JOE MD Primary Care Physician Friend, Dr. Shea Attending Provider [phone] Friend, Dr. Shea Other Provider KATHERINE PHAM Referring Unavailab EUNICE Maya Primary Care Unavailable FADY SHI MD Attending DR EUNICE Dover MD Primary Care Unavailable FABIO KIM DO Consulting UnavailFADY Mon MD Attending Jasmyne JOE MD, DR DAWSON Primary Care Unavailable FADY SHI MD Attending Unavailable HEATH CONNELL, DR DAWSON Primary Care Unavailable FADY SHI MD Attending Unavailable HEATH CONNELL, DR DAWSON Primary Care Unavailable FADY SHI MD Attending Unavailable HEATH CONNELL, DR DAWSON Primary Care Unavailable FADY SHI MD Attending Unavailable HEATH OCNNELL, DR DAWSON Primary Care Unavailable FADY SHI MD Attending Unavailable HEATH CONNELL, DR DAWSON Primary Care Unavailable Dr. Eunice Joe Primary Care Provider Dr. Eunice Joe Referring Provider JOSE Shi Attending Provider JOSE Shi Referring Provider JOSE Shi Other Provider Dr. Ar Young Attending Provider Eunice Joe MD Primary Care Provider Horvath HAND FRAME SURGICAL ELASTIC KNITTER.COMMERCIAL LEASING MANAGER, Aminta Unavailable Denisha HAND FRAME SURGICAL ELASTIC KNITTER.MASTER AUTOMOTIVE GLASS TECHNICIAN, Abner Unavailable Denisha HAND FRAME SURGICAL ELASTIC KNITTER.MASTER AUTOMOTIVE GLASS TECHNICIAN, Abner Unavailable Denisha HAND FRAME SURGICAL ELASTIC KNITTER.MASTER AUTOMOTIVE GLASS TECHNICIAN, Abner Unavailable HEATH CONNELL, DR DAWSON Primary Care Unavailable FADY SHI MD Attending Unavailable FADY SHI MD Attending Unavailable HEATH CONNELL, DR DAWSON Primary Care Unavailable Denisha HAND FRAME SURGICAL ELASTIC KNITTER.MASTER AUTOMOTIVE GLASS TECHNICIAN, Abner Unavailable HEATH CONNELL, DR DAWSON Primary Care Unavailable PEG RUIZ PA-C Attending Unavaila FADY Kay MD Attending Unavailable HEATH CONNELL, DR DAWSON Primary Care Unavailable FADY SHI MD Attending Unavailable HEATH CONNELL, DR DAWSON Primary Care Unavailable Horvath HAND FRAME SURGICAL ELASTIC KNITTER.COMMERCIAL LEASING MANAGER, Aminta Unavailable Claude Cast Attending Unavailable Claude Cast Referring Unavailable Eunice Joe Primary Care Unavailable Eunice Joe Primary Care Unavailable Jayden Shi Referring Unavail able Jayden Shi Attending Unavail able Talampas, Eunice D Primary Care Unavailable Talampas, Eunice D Referring Unavailable Jayden Shi Attending Unavail able Talampas, Eunice D Referring Unavailable JasonJustino Attending Unavailable Talampas, Eunice D Primary Care Unavailable Talampas, Eunice D Referring Unavailable Justino Gomez Attending Unavailable Talampas, Eunice D Primary Care Unavailable Talampas, Eunice D Primary Care Unavailable Talampas, Eunice D Referring Unavailable Claude Cast Attending Unavailable Talampas, Eunice D Primary Care Unavailable Talampas, Eunice D Referring Unavailable Dangelo Fierro Attending Unavailable Talampas, Eunice D Primary Care Unavailable HannahAr Attending Unavailable Talampas, Eunice D Primary Care Unavailable Talampas, Eunice D Referring Unavailable Tejinder Lamas Attending Unavailable Talampas, Eunice D Primary Care Unavailable Talampas, Eunice D Referring Unavailable Dangelo Fierro Attending Unavailable Talampas, Eunice D Primary Care Unavailable Justino Gomez Attending Unavailable Talampas, Eunice D Referring Unavailable Hannah, Edmond Referring Unavailable Hannah Ar Attending Unavailable Talampas, Eunice D Primary Care Unavailable Talampas, Eunice D Primary Care Unavailable Talampas, Eunice D Referring Unavailable Jayden Shi Attending Unavail able Talampas, Euniec D Primary Care Unavailable Hannah, Ar Attending Unavailable Talampas, Eunice D Primary Care Unavailable Vadim, Dangelo Referring Unavailable FierroDangelo Attending Unavailable Talampas, Eunice D Primary Care Unavailable Tejinder Lamas Referring Unavailable Tejinder Lamas Attending Unavailable Talampas, Eunice D Primary Care Unavailable Nereidaman, Tracie Referring Unavailable GodmanTremaineTracie Attending Unavailable Talampas, Eunice D Primary Care Unavailable West, Fred Referring Unavailable West, Fred Attending Unavailable RUTH DUKES Attending Unavailable TALAMPAS, EUNICE D Primary Care Unavailable TALAMPAS, EUNICE D Referring Unavailable TALAMPAS, EUNICE D Primary Care Unavailable ABNER DENNY Attending Unavailable TALAMPAS, EUNICE D Primary Care Unavailable TALAMPAS, EUNICE D Primary Care Unavailable TALAMPAS, EUNICE D Referring Unavailable TALAMPAS, EUNICE D Primary Care Unavailable ABNER DENNY Referring Unavailable TALAMPAS, EUNICE D Primary Care Unavailable TALAMPAS, EUNICE D Primary Care Unavailable OCTAVIO SALAS Attending Unavailable ABNER DENNY Attending Unavailable TALAMPAS, EUNICE D Primary Care Unavailable TALAMPAS, EUNICE D Attending Unavailable TALAMPAS, EUNICE D Primary Care Unavailable KIKA THOMPSON Referring Unavailable TALAMPAS, EUNICE D Primary Care Unavailable KATHERINE PHAM Attending Unavailab le TALAMPAS, EUNICE D Primary Care Unavailable TALAMPAS, EUNICE D Referring Unavailable TALAMPAS, EUNICE D Primary Care Unavailable ABNER DENNY Attending Unavailable TALAMPAS, EUNICE D Primary Care Unavailable SWANK, OCTAVIO Referring Unavailable TALAMPAS, EUNICE D Primary Care Unavailable TALAMPAS, EUNICE D Attending Unavailable TALAMPAS, EUNICE D Primary Care Unavailable TALAMPAS, EUNICE D Referring Unavailable TALAMPAS, EUNICE D Primary Care Unavailable TALAMPAS, EUNICE D Primary Care Unavailable TALAMPAS, EUNICE D Attending Unavailable TALAMPAS, EUNICE D Primary Care Unavailable TALAMPAS, EUNICE D Attending Unavailable TALAMPAS, EUNICE D Primary Care Unavailable TALAMPAS, EUNICE D Referring Unavailable TALAMPAS, EUNICE D Primary Care Unavailable Allergies Allergy Classification Reported Allergen(s) Allergy Type Date of Onset Reaction(s) Facility Alendronate (1 source) Alendronate Drug Allergy 6 GI Upset [facility] Latex (1 source) Latex Substance Allergy 7 Rash, Itching [facility] Risedronate (1 source) Risedronate Drug Allergy 6 GI Upset [facility] Work Phone: (20 sources) Alendronate; Translations: [ALENDRONATE SODIUM] Drug Allergy 6 GI Upset [facility] Work Phone: (20 sources) Latex; Translations: [LATEX] Drug Allergy 7 Rash, Itching, Pain in throat (finding) [facility] Work Phone: (20 sources) Risedronate; Translations: [RISEDRONATE SODIUM] Drug Allergy 6 GI Upset [facility] Work Phone: (1 source) Latex Drug allergy (disorder) 5 [facility] Medications Current Medications Medication Drug Class(es) Dates Sig (Normalized) Sig (Original) 8 hr acetaminophen 650 mg extended release oral tablet (20 sources) Start: 06-05-2023 take 2 tablets by mouth every eight hours as needed acetaminophen (TYLENOL 8 HOUR) 650 mg CR tablet Take 2 tablets by mouth every 8 hours as needed for pain. (try this one) 06/05/2023 Active Start: 02-02-2023 Tylenol 8 Hour 650 mg oral tablet, extended release Dose : 1,300 mg = 2 tab(s), Oral, q8h, 0 Refill(s) Start Date: 02/02/23 Status: Ordered Repeat number: 1 Start: 09-28-2018 Acetaminophen Active 1300 MG PO NEEDED September 28, 2018 1:00am End: 06-05-2023 take 2 tablets by mouth every six hours as needed acetaminophen (TYLENOL) 325 mg tablet Take 650 mg by mouth every 6 hours as needed. 06/05/2023 Discontinued Comment on above: Take 650 mg by mouth every 6 hours as needed. Take 2 tablets by mo uth every 8 hours as needed for pain. (try this one) [id number] 200 actuat albuterol 0.09 mg/actuat metered dose inhaler (5 sources) beta2-Adrenergic Agonist Start: 025 take 2 puff(s) by inhalation every four hours as needed for wheezing albuterol HFA (VENTOLIN HFA) 90 mcg/actuation inhaler Indications: Sinobronchitis Inhale 2 puffs as instructed every 4 hours as needed for wheezing/shortness of breath (and coughin spells). 1 each 03/27/2025 Active Alvina 12 Hour Allergy (1 source) Start: 023 take 1 mg by mouth twice daily Alvina 12 Hour Allergy mg =, Oral, BID, 0 Refill(s) Start Date: 02/02/23 Status: Ordered amoxicillin 875 mg / clavulanate 125 mg oral tablet (1 source) Penicillin-class Antibacterial Start: 023 End: 023 take 1 tablet by mouth twice daily amoxicillin-clavulani c acid (AUGMENTIN) 875-125 mg per tablet Take 1 tablet by mouth twice daily for 7 days. 14 tablet 0 07/04/2023 07/11/2023 Active Comment on above: Take 1 tablet by ritesh th twice daily for 7 days. benzonatate 100 mg oral capsule (3 sources) Non-narcotic Antitussive Start: 025 End: take 1 capsule by mouth every eight hours as needed benzonatate (TESSALON PERLE) 100 mg capsule Take 1 capsule by mouth three times a day as needed for cough for up to 7 days. 21 capsule 03/16/2025 03/23/2025 Active biotin 5 mg oral capsule (5 sources) Start: take 5 mg by mouth once daily Biotin Active 5 MG PO DAILY January 31, 2021 12:00am 12 hr buPROPion hydrochloride 150 mg extended release oral tablet (20 sources) Aminoketone Start: 023 End: 024 take 1 tablet by mouth once daily buPROPion SR (WELLBUTRIN SR) 150 mg 12 hr tablet Indications: Recurrent major depressive disorder, in remission Take 1 tablet by mouth once daily. 90 tablet 3 08/10/2024 Active Start: 04-01-2023 take 150 mg by mouth twice daily Bupropion Hcl Active 150 MG PO TWICE A DAY April 01, 2023 12:00am Start: 02-02-2023 Wellbutrin SR Oral, BID, 0 Refill(s) Start Date: 02/02/23 Status: Ordered Start: 10-23-2021 take 1 tablet by ritesh th twice daily buPROPion SR (ZYBAN SR; WELLBUTRIN SR) 150 mg 12 hr tablet Indications: Recurrent major depressive disorder, in remission (HCC) Take 1 tablet by mouth twice daily. As directed 180 tablet 3 10/23/2021 Active Start: 09-24-2016 End: 11-14-2022 take 150 mg by mouth once daily Bupropion Hcl Disconti nued 150 MG PO DAILY September 24, 2016 1:00am November 14, 2022 10:02am Comment on above: Take 1 tablet by ritesh th twice daily. As directed Take 1 tablet by ritesh th once daily. As directed (filled 10/11/22 for taking twice daily and got 180 tablets) Take 1 tablet by ritesh th once daily. BuPROPion (Eqv-Wellbutrin SR) 150 mg/12 hours oral tablet, extended release (7 sources) Start: 02-04-2023 BuPROPion (Eqv-Wellbutrin SR) 150 mg/12 hours oral tablet, extended release Dose : 150 mg = 1 tab(s), Oral, BID Start Date: 02/04/23 Status: Ordered Repeat number: 1 Start: 02-04-2023 BuPROPion (Eqv -Wellbutrin SR) 150 mg/12 hours oral tablet, extended release Dose : 150 mg = 1 tab(s), Oral, BID Start Date: 02/04/23 Status: Ordered busPIRone hydrochloride 15 mg oral tablet (20 sources) Start: 08-12-2023 End: 02-08-2026 take 1.5 tablets by mouth twice daily busPIRone (BUSPAR) 15 mg tablet Indications: Anxiety Take 1.5 tablets by mouth two times a day. 270 tablet 3 02/08/2025 02/08/2026 Active Start: 06-29-2023 End: 06-28-2024 take 1.5 tablets by mouth once daily busPIRone (BUSPAR) 15 mg tablet Take 1.5 tablets by mouth once daily. 135 tablet 3 06/29/2023 11/11/2023 Discontinued Start: 02-02-2023 busPIRone 15 m g oral tablet Dose : 15 mg = 1 tab(s), Oral, qAM, 0 Refill(s) Start Date: 02/02/23 Status: Ordered Repeat number: 1 Start: 05-19-2022 End: 06-29-2023 take 1.5 tablets by mouth twice daily busPIRone (BUSPAR) 15 mg tablet Take 1.5 tablets by mouth twice daily. 270 tablet 3 05/19/2022 06/29/2023 Discontinued Start: 02-27-2021 End: 02-18-2022 take 1.5 tablets by mouth twice daily busPIRone (BUSPAR) 15 mg tablet Take 1.5 tablets by mouth twice daily. 270 tablet 3 02/18/2022 Active Start: 09-28-2018 take 15 mg by mouth once daily Buspirone Active 15 MG PO DAILY September 28, 2018 1:00am Comment on above: Take 1.5 tablets by mouth twice daily. Take 1.5 tablets by mouth once daily. Take 1.5 tablets by mouth two times a day. calcium carbonate 600 mg chewable tablet (8 sources) Start: calcium carbonate 600 mg oral tablet, chewable Dose : 1,200 mg = 2 tab(s), Chewed, qDay, 0 Refill(s) Start Date: 02/02/23 Status: Ordered Repeat number: 1 calcium carbonate 1500 mg / cholecalciferol 200 unt oral tablet (20 sources) Vitamin D Start: 019 take 1 tablet by mouth twice daily calcium carbonate 600 mg-cholecalciferol 200 units (CALCIUM 600 + D,3,) 600 mg(1,500mg) -200 unit tab Take 1 tablet by mouth twice daily. Calcium viactive chewable 0 09/15/2019 Active Comment on above: Take 1 tablet by [facility] twice daily. Calcium viactive chewable cefdinir 300 mg oral capsule (4 sources) Cephalosporin Antibacterial Start: End: take 1 capsule by mouth twice daily cefdinir (OMNICEF) 300 mg capsule Indications: Sinobronchitis Take 1 capsule by mouth two times a day for 7 days. 14 capsule 03/27/2025 04/03/2025 Active Start: 03-16-2025 End: 03-23-2025 take 1 capsule by mouth twice daily cefdinir (OMNICEF) 300 mg capsule Take 1 capsule by mouth two times a day for 7 days. 14 capsule 03/16/2025 03/23/2025 Active cholecalciferol 0.125 mg ora l capsule (20 sources) Vitamin D Start: 02-02-2023 Vitamin D (3) 45 units oral capsule 0 Refill(s) Start Date: 02/02/23 Status: Ordered Start: 01-31-2021 take 125 ug by mouth once daily Cholecalciferol (Vitamin D3) Active 125 MCG PO DAILY January 31, 2021 12:00am Start: 01-23-2021 End: 08-10-2024 Cholecalciferol, Vitamin D3, 125 mcg (5,000 unit) cap Hold for the month of August then resume once weekly in September. 08/10/2024 Active Comment on above: Take [address] [facility] once daily. citalopram 40 mg oral tablet (20 sources) Serotonin Reuptake Inhibitor Start: 02-02-2023 CeleXA Oral, qDay, 0 Refill(s) Start Date: 02/02/23 Status: Ordered Start: 05-19-2022 End: 04-17-2024 take 1 tablet by mouth once daily citalopram (CELEXA) 40 mg tablet Take 1 tablet by mouth once daily. 90 tablet 3 04/18/2024 Active Start: 05-19-2022 take 1 tablet by ritesh th once daily citalopram (CELEXA) 40 mg tablet Take 1 tablet by mouth once daily. 90 tablet 3 05/19/2022 Active Start: 09-24-2016 End: 02-18-2022 take 40 mg by mouth at bedtime Citalopram Active 40 MG PO AT BEDTIME September 24, 2016 1:00am Comment on above: Take 1 tablet by ritesh th once daily. colestipol hydrochloride 1000 mg oral tablet (20 sources) Bile Acid Sequestrant Start: 02-04-2023 colestipol 1 g oral tablet Dose : 2 gram(s) = 2 tab(s), Oral, acLunch Start Date: 02/04/23 Status: Ordered Start: 01-28-2023 End: 03-25-2024 take 1-2 tablets by mouth once daily colestipol (COLESTID) 1 gram tablet Take 1-2 tablets by mouth once daily. around lunchtime. Wait at least 1 hour after other meds to take it. 01/28/2023 03/25/2024 Discontinued Comment on above: Take 1-2 tablets by mouth once daily. around lunchtime. Wait at least 1 hour after other meds to take it. 1 ml denosumab 60 mg/ml prefilled syringe (10 sources) RANK Ligand Inhibitor denosumab (PROLIA) 6 0 mg/mL Inject 60 mg subcutaneously one time only. every 6 months. Active doxycycline hyclate 100 mg oral tablet (4 sources) Tetracycline-class Drug Start: End: take 1 tablet by mouth twice daily doxycycline (VIBRA-TABS) 100 mg tablet Take 1 tablet by mouth two times a day for 7 days. 14 tablet 12/22/2024 12/29/2024 Active Start: 06-07-2024 End: 09-06-2024 take 1 tablet by mouth twice daily doxycycline (VIBRA-TABS) 100 mg tablet Indications: Sinobronchitis Take 1 tablet by mouth two times a day for 10 days. 20 tablet 06/07/2024 06/17/2024 Active fexofenadine hydrochloride 180 mg oral tablet (20 sources) Histamine-1 Receptor Antagonist Start: 01-06-2024 take 1 tablet by mouth once daily Fexofenadine (Allergy Relief (Fexofenadine)) 180 mg tablet Active 180 MG PO DAILY January 06, 2024 12:00am Start: 02-04-2023 Alvina 24 Hector r Allergy oral tablet Dose : 180 mg = 1 tab(s), Oral, Daily, PRN for allergy symptoms Start Date: 02/04/23 Status: Ordered Start: 01-31-2021 End: 11-14-2022 take 1 tablet by mouth once daily Fexofenadine (Alvina Allergy) 180 mg tablet Discontinued 180 MG PO DAILY January 31, 2021 12:00am November 14, 2022 10:02am Start: 09-28-2018 End: 10-03-2020 take 180 mg by mouth once daily Fexofenadine Discontin ued 180 MG PO DAILY September 28, 2018 1:00am October 03, 2020 12:37pm Comment on above: Take 180 mg by mouth once daily. ketorolac tromethamine 10 mg oral tablet (3 sources) Nonsteroidal Anti-inflammatory Drug, Cyclooxygenase Inhibitor Start: 12-15-2024 End: 12-19-2024 keTORolac (TORADOL) 10 mg tablet Indications: Arthralgia of multiple joints Take 1 tablet by mouth every 6 hours as needed for pain for up to 4 days. Hold Meloxicam while taking Toradol. Patient should start on December 15, 2024. 16 tablet 12/15/2024 12/19/2024 Active Start: 12-14-2024 End: 12-14-2024 keTORolac 30 mg injection (T oradol) Start: 12-14-2024 End: 12-14-2024 30 mg, INTRAMUSCULAR, ONCE ( UP TO 30 DAYS AMB), 1 dose, On Thu12/14/24 at 1030, Ketorolac (Toradol) is indicated for the short-term (up to 5 days) management of moderately severe acute pain. Continuation of ketorolac (Toradol) beyond 5 days increases the risk of developing serious adverse events. Please verify the duration of therapy for ketorolac (Toradol) levothyroxine sodium 0.05 mg oral tablet (20 sources) l-Thyroxine Start: 02-04-2023 levothyroxine 50 mcg (0.05 mg) oral tablet Dose : 50 mcg = 1 tab(s), Oral, qAM Start Date: 02/04/23 Status: Ordered Repeat number: 1 Start: 02-02-2023 Start: 09-24-2016 End: 12-03-2024 take 1 tablet by mouth once daily levothyroxine (SYNTHROID) 50 mcg tablet Indications: Acquired hypothyroidism Take 1 tablet by mouth once daily. 90 tablet 3 12/03/2024 Active Comment on above: Take 1 tablet by ritesh th once daily. lisinopril 2.5 mg oral tablet (20 sources) Angiotensin Converting Enzyme Inhibitor Start: 07-13-2024 End: 12-03-2024 take 1 tablet by mouth once daily lisinopril 2.5 mg tablet Take 1 tablet by mouth once daily. (Cardiology filling) 12/03/2024 Active Start: 01-29-2024 take 5 mg by mouth once daily Lisinopril Active 5 MG PO DAILY January 29, 2024 1:05pm Start: 01-06-2024 End: 01-07-2024 take 5 mg by mouth once daily Lisinopril Discontinued 5 MG PO DAILY January 06, 2024 12:00am January 07, 2024 5:25pm Magnesium (9 sources) Start: 01-31-2021 take 250 mg by mouth once daily Magnesium Active 250 MG PO DAILY January 31, 2021 3:09pm Start: 01-31-2021 End: 11-14-2022 take 250 mg by mouth once daily Magnesium Discontinued 250 MG PO DAILY January 31, 2021 12:00am November 14, 2022 10:02am Start: 01-31-2021 End: 11-14-2022 take 250 mg by mouth once daily Magnesium Discontinued 250 MG PO DAILY January 30, 2021 11:00pm November 14, 2022 9:02am meloxicam 15 mg oral tablet (20 sources) Nonsteroidal Anti-inflammatory Drug Start: 11-14-2022 End: 04-11-2024 take 1 tablet by mouth once daily at mealtime meloxicam (MOBIC) 15 mg tablet Take 1 tablet by mouth once daily. Take with food. 90 tablet 3 04/11/2024 Active Start: 09-28-2018 End: 03-28-2022 take 15 mg by mouth once daily Meloxicam Discontinued 15 MG PO DAILY September 28, 2018 1:00am March 28, 2022 2:35pm Comment on above: Take 1 tablet by ritesh th once daily. Take with food. 24 hr metoprolol succinate 25 mg extended release oral tablet (20 sources) beta-Adrenergic Tierra Start: 01-07-2024 take 12.5 mg by mouth once daily Metoprolol Succinate Active 12.5 MG PO DAILY January 07, 2024 5:25pm Start: 01-06-2024 End: 08-07-2024 take 12.5 mg by mouth once daily metoprolol succinate 25 mg CSpX Take 12.5 mg by mouth once daily. 01/06/2024 08/07/2024 Discontinued Start: 02-04-2023 Metoprolol Suc cinate ER 25 mg oral TABLET extended release Dose : 12.5 mg = 0.5 tab(s), Oral, qHS, Do not crush or chew (controlled release) Start Date: 02/04/23 Status: Ordered Start: 02-02-2023 Toprol-XL Oral , qDay, 0 Refill(s) Start Date: 02/02/23 Status: Ordered Start: 01-10-2022 End: 01-07-2024 take 25 mg by mouth once daily Metoprolol Succinate Di scontinued 25 MG PO DAILY February 17, 2022 12:22pm January 07, 2024 5:25pm Start: 10-01-2021 End: 02-17-2022 take 2 tablets by mouth once daily Metoprolol Succinate (Toprol Xl) 50 mg tablet extended release 24 hr Discontinued 25 MG PO DAILY October 01, 2021 4:22pm February 17, 2022 12:22pm Start: 09-26-2021 End: 10-01-2021 take 1 tablet by mouth once daily Metoprolol Succinate (Toprol Xl) 50 mg tablet extended release 24 hr Discontinued 50 MG PO DAILY September 26, 2021 1:00am October 01, 2021 4:22pm Start: 05-06-2021 End: 05-06-2021 take 37.5 mg by mouth once daily in the evening Metoprolol Succinate Discontinued 37.5 MG PO EVERY EVENING May 06, 2021 2:55pm May 06, 2021 3:34pm Start: 01-31-2021 End: 06-05-2023 take 0.5 tablet by mouth once daily at bedtime metoprolol succinate ER (TOPROL XL) 25 mg 24 hr tablet Take 0.5 tablets by mouth daily at bedtime. Along with 25 mg dose 01/10/2022 06/05/2023 Discontinued (Discontinued by another Health Care Provider) Start: 01-31-2021 End: 08-07-2021 take 25 mg by mouth once daily in the evening Metoprolol Succinate Discontinued 25 MG PO EVERY EVENING May 06, 2021 3:34pm August 07, 2021 10:04pm Comment on above: Take 0.5 tablets by mouth daily at bedtime. Along with 25 mg dose Take 25 mg by mouth once daily. Take 12.5 mg by mout h daily at bedtime. Along with 25 mg dose Zesryaor-Qez-Ihxs-F a-Lutein (Centrum Silver Women) 8 mg iron-400 mcg-300 mcg tablet (6 sources) Start: 01-31-2021 take 1 tablet by mouth once daily Wsxgtdbo-Avu-Iqzi -Fa-Lutein (Centrum Silver Women) 8 mg iron-400 mcg-300 mcg tablet Active 1 TABLET PO DAILY January 31, 2021 3:11pm Start: 01-31-2021 take 1 tablet by ritesh th once daily Kmbgvyeh-Srz-Wdhd-Fa-Lutein (Centrum Roopa aaron Women) 8 mg iron-400 mcg-300 mcg tablet Active 1 TABLET PO DAILY January 31, 2021 12:00am Start: 01-31-2021 take 1 tablet by ritesh th once daily Hxtzxaso-Kka-Vzxx-Fa-Lutein (Centrum Roopa aaron Women) 8 mg iron-400 mcg-300 mcg tablet Active 1 TABLET PO DAILY January 30, 2021 11:00pm Blehthlh-Krl-Rirx-Fa-Vit K-Lut (Centrum Silver Women) 8 mg iron-400 mcg-300 mcg tablet (3 sources) Start: 01-31-2021 take 1 tablet by mouth once daily Riutxfak-Hbv-Keeg-Fa-Vit K-Lut (Centrum Silver Women) 8 mg iron-400 mcg-300 mcg tablet Active 1 TABLET PO DAILY January 31, 2021 12:00am Start: 01-31-2021 take 1 tablet by ritesh th once daily Wynmrlfr-Dum-Wyah-Fa-Vit K-Lut (Centrum Silver Women) 8 mg iron-400 mcg-300 mcg tablet Active 1 TABLET PO DAILY January 30, 2021 11:00pm ondansetron 4 mg disintegrating oral tablet (3 sources) Serotonin-3 Receptor Antagonist Start: 09-07-2023 take 4 mg by mouth every eight hours as needed Ondansetron Active 4 MG PO EVERY 8 HOURS NEEDED September 07, 2023 1:00am pantoprazole 40 mg delayed release oral tablet (20 sources) Proton Pump Inhibitor Start: 09-24-2016 End: 12-03-2024 take 1 tablet by mouth twice daily pantoprazole DR (PROTONIX) 40 mg tablet Take 1 tablet by mouth two times a day. As directed 180 tablet 3 12/03/2024 Active Start: 09-24-2016 End: 11-25-2022 take 1 tablet by mouth once daily pantoprazole DR (PROTONIX) 40 mg tablet Take 1 tablet by mouth once daily. 90 tablet 3 10/17/2022 11/25/2022 Discontinued Comment on above: Take 1 tablet by ritesh th once daily. Take 1 tablet by ritesh th twice daily. As directed polysaccharide iron complex 150 mg oral capsule (10 sources) Start: 03-01-20 take 1 capsule by mouth once daily iron polysaccharide complex (NU-IRON) 150 mg iron capsule Take 1 capsule by mouth once daily. 90 capsule 1 03/01/2025 Active pregabalin 75 mg oral capsule (20 sources) Start: 02-05-20 pregabalin 75 mg oral capsule Dose : 75 mg = 1 cap(s), Oral, qHS, 67.2 Start Date: 02/04/23 Status: Ordered Repeat number: 1 Start: 02-02-2023 take 1 mg by mouth twice daily pregabalin 75 mg oral capsule mg = cap(s), Oral, BID, 0 Refill(s) Start Date: 02/02/23 Status: Ordered Start: 04-11-2022 End: 03-25-2024 pregabalin (LYRICA) 75 mg ca psule Indications: Chronic midline low back pain with left-sided sciatica Take 1 capsule by mouth once daily for 180 days. (filled for twice daily but taking just once daily so will last till January) 30 capsule 5 01/30/2023 06/17/2023 Discontinued Start: 02-14-2022 End: 04-11-2022 take 1 mg by mouth twice daily Pregabalin Discontinued MG PO TWICE A DAY February 14, 2022 12:00am April 11, 2022 1:31pm Start: 11-28-2021 End: 11-09-2022 take 1 capsule by mouth twice daily pregabalin (LYRICA) 75 mg capsule Indications: Chronic midline low back pain with left-sided sciatica Take 1 capsule by mouth twice daily for 180 days. 180 capsule 1 05/13/2022 11/09/2022 Active Comment on above: Take [address] [facility] twice daily for 180 days. Take [address] [facility] twice daily for 90 days. Take [address] [facility] once daily for 180 days. (filled for twice daily but taking just once daily so will last till January) sucralfate 1000 mg oral tablet (20 sources) Aluminum Complex Start: 11-11-2023 End: 08-10-2024 sucralfate (CARAFATE) 1 gram tablet Indications: Gastroesophageal reflux disease without esophagitis Take 1 tablet by mouth four times daily. As directed for flare ups. May dissolve in 1 to 2 teaspoons of water then swallow. 56 tablet 5 08/10/2024 Active Start: 09-07-2023 take 1 mL by mouth twice daily Sucralfate (Carafate) 100 mg/mL suspension Active 10 ML PO TWICE A DAY 999September 07, 2023 1:00am Start: 11-25-2022 End: 02-04-2023 sucralfate (CARAFATE) 1 gram tablet Take 1 tablet by mouth four times daily. As directed for 2 weeks. Repeat course as needed. May dissolve in 1 to 2 teaspoons of water. 56 tablet 1 11/25/2022 02/04/2023 Discontinued Comment on above: [facility] As directed for 2 weeks. Repeat course as needed. May dissolve in 1 to 2 teaspoons of water. Take 1 tablet by ritesh th four times daily. As directed for flare ups. May dissolve in 1 to 2 teaspoons of water then swallow. tiZANidine 4 mg oral tablet (20 sources) Central alpha-2 Adrenergic Agonist Start: 01-27-2025 take 1 tablet by mouth twice daily as needed tiZANidine (ZANAFLEX) 4 mg tablet Indications: Chronic midline low back pain with left-sided sciatica , Pain in left hip Take 1 tablet by mouth two times a day as needed. 180 tablet 3 01/27/2025 Active Start: 02-04-2023 End: 12-03-2024 tiZANidine 4 mg oral tablet Dose : 4 mg = 1 tab(s), Oral, qHS Start Date: 02/04/23 Status: Ordered Repeat number: 1 Start: 02-02-2023 Zanaflex Oral, 0 Refill(s) Start Date: 02/02/23 Status: Ordered Start: 09-28-2018 End: 01-10-2022 take 4 mg by mouth at bedtime Tizanidine Active 4 MG P O AT BEDTIME September 28, 2018 1:00am Comment on above: Take 1 tablet by ritesh th twice daily as needed. trospium chloride 20 mg oral tablet (4 sources) Cholinergic Muscarinic Antagonist Start: 12-16-2023 take 20 mg by mouth twice daily Trospium Active 20 MG PO TWICE A DAY January 06, 2024 12:00am administer on an empty stomach Turmeric extract (5 sources) Start: 11-26-2020 take 400 mg by mouth once daily Turmeric Active 400 MG PO DAILY November 26, 2020 2:16pm Start: 11-26-2020 take 400 mg by mouth once rose y Turmeric Active 400 MG PO DAILY November 26, 2020 1:00am Start: 11-26-2020 take 400 mg by mouth once rose y Turmeric Active 400 MG PO DAILY November 26, 2020 12:00am Completed/Discontinued Medications Medication Drug Class(es) Dates Sig (Normalized) Sig (Original) acetaminophen 325 mg / HYDROcodone bitartrate 5 mg oral tablet (20 sources) Opioid Agonist Start: 04-11-2022 End: 01-28-2023 take 1 tablet by mouth three times daily Hydrocodone-Acetami nophen Discontinued 1 TABLET PO THREE TIMES A DAY April 11, 2022 1:29pm January 28, 2023 2:11pm Start: 03-28-2022 End: 04-11-2022 Hydrocodone-Acetaminophen Di scontinued 1 TABLET PO March 28, 2022 12:00am April 11, 2022 1:31pm Start: 10-01-2021 End: 03-28-2022 take 1 tablet by mouth three times daily Hydrocodone-Acetaminophen Discontinued 1 TABLET PO THREE TIMES A DAY October 01, 2021 4:22pm March 28, 2022 2:36pm Start: 09-26-2021 End: 10-01-2021 take 1 tablet by mouth twice daily Hydrocodone-Acetaminophen Discontinued 1 TABLET PO TWICE A DAY September 26, 2021 2:59pm October 01, 2021 4:23pm Start: 05-06-2021 End: 09-26-2021 take 1 tablet by mouth at bedtime Hydrocodone-Acetaminophen Discontinued 1 TABLET PO AT BEDTIME May 06, 2021 12:00am September 26, 2021 3:00pm Start: 04-22-2021 End: 05-02-2021 take 1 tablet by mouth every six hours Hydrocodone-Acetaminophen Discontinued 1 TABLET PO EVERY 6 HOURS 40 April 22, 2021 May 02, 2021 12:01am Start: 09-29-2020 End: 02-04-2023 take 1 tablet by mouth every six hours as needed HYDROcodone-acetaminophen (NORCO) 5-325 mg per tablet Take 1 tablet by mouth every 6 hours as needed. 0 09/29/2020 02/04/2023 Discontinued Start: 09-29-2020 End: 10-02-2020 take 1 tablet by mouth every six hours as needed Hydrocodone-Acetaminophen Discontinued 1 TABLET PO EVERY 6 HOURS NEEDED 07 14September 29, 2020 October 02, 2020 1:02am Comment on above: Take 1 tablet by ritesh th every 6 hours as needed. ALPRAZolam 0.5 mg oral tablet (20 sources) Benzodiazepine Start: 02-07-20 End: 06-15-20 take 1 tablet by mouth twice daily as needed for anxiety ALPRAZolam (XANAX) 0.5 mg tablet Indications: Grief reaction , Anxiety Take 1 tablet by mouth two times a day as needed for up to 60 days. For Anxiety and SOB related to throat/laryngospasm as directed 60 tablet 02/06/2025 03/17/2025 Discontinued Start: 11-15-2024 End: 01-14-2025 take 1 tablet by mouth twice daily as needed for anxiety ALPRAZolam (XANAX) 0.5 mg tablet Indications: Grief reaction , Anxiety Take 1 tablet by mouth two times a day as needed for up to 60 days. For Anxiety and SOB related to throat/laryngospasm as directed 60 tablet 1 11/15/2024 01/14/2025 Start: 02-02-2023 take [address] [facility] three times daily ALPRAZolam 0.5 mg oral tablet mg = tab(s), Oral, TID, 0 Refill(s) Start Date: 02/02/23 Status: Ordered Start: 12-09-2016 End: 10-09-2024 take 1 tablet by mouth twice daily as needed for anxiety ALPRAZolam (XANAX) 0.5 mg tablet Indications: Grief reaction , Anxiety Take 1 tablet by mouth two times a day as needed for up to 60 days. For Anxiety and SOB related to throat/laryngospasm as directed 60 tablet 1 08/10/2024 10/09/2024 Active Comment on above: Take 1 tablet by ritesh twice daily for 90 days. For Anxiety and SOB related to throat/laryngospasm as directed Take 1 tablet by ritesh twice daily for 60 days. For Anxiety and SOB related to throat/laryngospasm as directed Take 1 tablet by ritesh two times a day for 60 days. For Anxiety and SOB related to throat/laryngospasm as directed baclofen 10 mg oral tablet (5 sources) gamma-Aminobutyric Acid-ergic Agonist Start: End: take 1 tablet by mouth every twelve hours as needed baclofen 10 mg tablet Take 1 tablet by mouth two times a day as needed. 60 tablet 5 12/03/2024 01/02/2025 Discontinued (Lack of Efficacy) 30 ml bupivacaine hydrochloride 5 mg/ml injection (4 sources) Amide Local Anesthetic Start: End: BUPivacaine (PF) 0.5 % (5 mg/mL) 2 mL injection Start: 02-17-2025 End: 02-17-2025 2 mL, Injection - FOR ORTHO USE ONLY, ONCE, 1 dose, Starting on Thu02/17/25 at 1232, Until Thu02/17/25 at 1232 Start: 06-25-2023 End: 06-25-2023 BUPivacaine (PF) 0.5 % (5 mg /mL) 1 mL injection CPAP/BIPAP/OTHER (15 sources) Start: 03-25-2024 End: 08-25-2024 CPAP/BIPAP/OTHER autoCPAP 5- 15 cmH2O DME [facility] 1 Each 03/25/2024 08/25/2024 Discontinued Start: 03-25-2024 End: 08-10-2051 CPAP/BIPAP/OTHER autoCPAP 5- 15 cmH2O DME [facility] 1 Each 03/25/2024 08/10/2051 Active Start: 03-25-2024 End: 08-10-2051 CPAP/BIPAP/OTHER autoCPAP 5- 15 cmH2O DME [facility] 1 Each 0 03/25/2024 08/10/2051 Active dicyclomine hydrochloride 10 mg oral capsule (20 sources) Anticholinergic Start: 01-28-2023 End: 06-07-2024 take 1 capsule by mouth every twelve hours as needed dicyclomine (BENTYL) 10 mg capsule Take 10 mg by mouth twice daily as needed. 01/28/2023 06/07/2024 Discontinued Comment on above: Take 10 mg by mouth twice daily as needed. ergocalciferol 1.25 mg oral capsule (18 sources) Provitamin D2 Compound Start: 10-03-2020 End: 01-31-2021 take 45737 [IU] by mouth every week Ergocalciferol (Vitamin D2) Discontinued [id number] UNIT PO EVERY WEEK October 03, 2020 12:37pm January 31, 2021 3:08pm Start: 12-02-2016 End: 10-03-2020 Ergocalciferol (Vitamin D2) Discontinued [id number] UNIT PO [place] December 02, 2016 1:00am October 03, 2020 12:38pm 24 hr fexofenadine hydrochloride 180 mg / pseudoephedrine hydrochloride 240 mg extended release oral tablet (9 sources) alpha-Adrenergic Agonist, Histamine-1 Receptor Antagonist Start: 09-24-2016 End: 06-18-2018 take 180 mg by mouth once daily Fexofenadine-Pseudoephedrine Discontinued 180 MG PO DAILY September 24, 2016 1:00am June 18, 2018 3:56pm gabapentin 100 mg oral capsule (18 sources) Anti-epileptic Agent Start: 05-24-2021 End: 02-14-2022 take 300 mg by mouth at bedtime Gabapentin Discontinued 300 MG PO AT BEDTIME May 24, 2021 9:31am February 14, 2022 2:09pm Start: 10-03-2020 End: 05-24-2021 take 100 mg by mouth at bedtime Gabapentin Discontinue d 100 MG PO AT BEDTIME October 03, 2020 1:00am May 24, 2021 9:32am lidocaine 0.04 mg/mg medicated patch (7 sources) Antiarrhythmic, Amide Local Anesthetic Start: 06-02-2022 End: 01-06-2024 apply 1 dose topically once daily Lidocaine Discontinued 1 PATCH TOPICAL DAILY June 02, 2022 12:00am January 06, 2024 11:10am LORazepam 1 mg oral tablet (16 sources) Benzodiazepine Start: 05-20-2024 End: 07-14-2024 take 1 tablet by mouth once daily at bedtime as needed for anxiety, then take 1 tablet by mouth once daily as needed for anxiety LORazepam (ATIVAN) 1 mg tablet Indications: Severe anxiety with panic Take 1 tablet by mouth daily at bedtime. May also take 1 tablet once daily as needed for anxiety. Do all this for 30 days. 40 tablet 06/14/2024 06/28/2024 Discontinued (Lack of Efficacy) Start: 03-16-2024 End: 05-12-2024 take 1 tablet by mouth once daily at bedtime as needed for anxiety, then take 1 tablet by mouth once daily as needed for anxiety LORazepam (ATIVAN) 1 mg tablet Indications: Severe anxiety with panic Take 1 tablet by mouth daily at bedtime. May also take 1 tablet once daily as needed for anxiety. Do all this for 30 days. (documentation that RX filled in April; tried to send another RX for 2 more months but denied at pharmacy). 40 tablet 0 04/12/2024 05/12/2024 Active losartan potassium 25 mg oral tablet (1 source) Angiotensin 2 Receptor [place] Start: 12-07-2020 End: 01-10-2022 losartan (COZAAR) 25 mg tablet Indications: Essential hypertension Once daily or as directed 90 tablet 3 12/07/2020 01/10/2022 Discontinued (Discontinued by another Health Care Provider) Comment on above: Once daily or as dir ected magnesium gluconate 550 mg oral tablet (9 sources) Start: 11-26-2020 End: 01-31-2021 take 30 mg by mouth once daily Magnesium Discontinued 30 MG PO DAILY November 26, 2020 1:00am January 31, 2021 3:09pm methylPREDNISolone 4 mg oral tablet (20 sources) Corticosteroid Start: 02-14-2022 End: 03-28-2022 take 1 tablet by mouth once daily Methylprednisolone (Medrol (You)) 4 mg tablets,dose pack Discontinued 4 MG PO DAILY February 14, 2022 12:00am March 28, 2022 2:35pm Start: 01-04-2021 End: 01-31-2021 take 1 tablet by mouth once Methylprednisolone (Medrol (You)) 4 mg tablets,dose pack Discontinued 0 PO per package directions January 04, 2021 12:00am January 31, 2021 3:10pm PO per package directions; Start: 10-23-2020 End: 11-26-2020 take 1 tablet by mouth once Methylprednisolone (Medrol (You)) 4 mg tablets,dose pack Discontinued 0 PO per package directions October 23, 2020 1:00am November 26, 2020 2:17pm PO PER PKG DIR Start: 02-06-2020 End: 02-06-2020 Depo-Medrol (methylprednisol one acetate) 40 mg/mL suspension for injection Discontinued 40 MG INTRAARTIC ONCE 1 February 06, 2020 9:39am February 06, 2020 9:58am [id number]-Qtmb-Albyv-Fry-Hco-Hc1 24 (Airborne (Ascorbate Sodium)) 333-1.7 mg tablet,chewable (9 sources) Start: 01-31-2021 End: 02-14-2022 take 1 tablet by mouth once daily Uh-Uh-Ppnf-Adhdx-Orz-Xna-Hc124 (Airborne (Ascorbate Sodium)) 333-1.7 mg tablet,chewable Discontinued 1 TABLET PO DAILY January 31, 2021 3:12pm February 14, 2022 2:10pm Start: 01-31-2021 End: 02-14-2022 take 1 tablet by mouth once daily Dd-Xt-[id number]-Wdaam-Aky-Scg-Hc124 (Airborne (Ascorbate Sodium)) 333-1.7 mg tablet,chewable Discontinued 1 TABLET PO DAILY January 31, 2021 12:00am February 14, 2022 2:10pm Start: 01-31-2021 End: 02-14-2022 take 1 tablet by mouth once daily Cf-Zz-Tvsr-Myvoq-Sgz-Fzr-Hc124 (Airborne (Ascorbate Sodium)) 333-1.7 mg tablet,chewable Discontinued 1 TABLET PO DAILY January 30, 2021 11:00pm February 14, 2022 1:10pm Sod Sulf-Pot Chloride-Mag Sulf (4 sources) Start: 03-26-2023 End: 01-06-2024 take 1.479 tablets by mouth once Sod Sulf-Pot Chloride-Mag Sulf (Sutab) 1.479-0.188- 0.225 gram tablet Discontinued 0 PO per package directions March 26, 2023 12:00am January 06, 2024 11:10am PO PER PKG DIR Start: 03-26-2023 take 1.479 tablets b y mouth once Sod Sulf-Pot Chloride-Mag Sulf (Sutab) 1.479-0.188- 0.225 gram tablet Active 0 PO per package directions March 25, 2023 11:00pm PO PER PKG DIR Start: 03-26-2023 take 1.479 tablets b y mouth once Sod Sulf-Pot Chloride-Mag Sulf (Sutab) 1.479-0.188- 0.225 gram tablet Active 0 PO per package directions March 26, 2023 12:00am PO PER PKG DIR traMADol hydrochloride 50 mg oral tablet (16 sources) Opioid Agonist Start: 11-12-2020 End: 09-26-2021 take 1-2 tablets by mouth every six hours as needed Tramadol Discontinued 0 PO EVERY 6 HOURS November 12, 2020 1:00am September 26, 2021 3:00pm 1-2 tablets PO every 6 hours PRN; Comment on above: Take 1 tablet by ritesh th every 6 hours as needed for up to 7 days. triamcinolone acetonide 10 mg/ml injectable suspension (6 sources) Corticosteroid Start: 02-17-2025 End: 02-17-2025 triamcinolone acetonide 10 mg injection (KeNALog 10) Start: 02-17-2025 End: 02-17-2025 10 mg, Injection - FOR ORTHO USE ONLY, ONCE, 1 dose, Starting on Thu02/17/25 at 1232, Until Thu02/17/25 at 1232 Start: 06-25-2023 End: 06-25-2023 triamcinolone acetonide 10 m g injection (KeNALog 10) Start: 11-15-2020 End: 11-15-2020 Kenalog (triamcinolone aceto nide) 40 mg/mL suspension for injection Discontinued 20 MG INTRAARTIC ONCE 0.5 November 15, 2020 9:09am November 15, 2020 9:38am vancomycin 125 mg oral capsule (18 sources) Glycopeptide Antibacterial Start: 02-03-2023 End: 06-05-2023 take 1 capsule by mouth four times daily vancomycin (VANCOCIN) 125 mg capsule Take 1 capsule by mouth four times daily. 02/03/2023 06/05/2023 Discontinued (Course of therapy completed) Start: 02-03-2023 End: 02-13-2023 take 125 mg by mouth every six hours Vancomycin Discontinued 125 MG PO EVERY 6 HOURS 40 10 February 03, 2023 12:00am February 13, 2023 12:05am Comment on above: Take 1 capsule by [facility] four times daily. vitamin b12 1 mg/ml injectable solution (12 sources) Vitamin B12 Start: 03-27-2025 End: 03-27-2025 cyanocobalamin 1,000 mcg injection Start: 03-27-2025 End: 03-27-2025 inject 1 dose by intramuscular injection once 1,000 mcg, INTRAMUSCULAR, ONCE, 1 dose, On Thu03/27/25 at 1230 Start: 03-01-2025 take 1 tablet by mouth once da chaz cyanocobalamin (VITAMIN B- 12) 1,000 mcg tab Take 1 tablet by mouth once daily. 90 tablet 1 03/01/2025 Active 100 ml zoledronic acid 0.05 mg/ml injection (11 sources) Bisphosphonate Start: 02-14-2022 End: 01-06-2024 Zoledronic Bfxu-Sprfjpji-Jzocb (Reclast) 5 mg/100 mL piggyback Discontinued 1 EACH .Route ONE TIME February 14, 2022 12:00am January 06, 2024 11:10am Once a year infusion Start: 02-04-2022 End: 03-06-2022 zoledronic acid 5 mg PREMIX piggyback (RECLAST) Problems Active Problems Problem Classification Problem Date Documented Da te Episodic/Chronic Abdominal hernia (14 sources) Hiatal hernia; Translations: [Umbilical hernia] 02-04-2023 Episodic Abdominal pain (20 sources) Right flank pain; Translations: [Unspecified abdominal pain] 08-07-2021 Episodic Acute and unspecified renal failure (9 sources) Acute nontraumatic kidney injury; Translations: [Acute kidney failure, unspecified] 09-17-2019 Episodic Adjustment disorders (15 sources) Grief finding; Translations: [Adjustment disorder with depressed mood] Onset: 4 Chronic Anxiety disorders (20 sources) Anxiety; Translations: [Anxiety disorder, unspecified] Onset: 4 09-17-2014 Chronic Bacterial infection; unspecified site (1 source) Clostridioides difficile infection; Translations: [Other bacterial infections of unspecified site] Episodic Cancer of bladder (9 sources) Malignant tumor of urinary bladder; Translations: [Malignant neoplasm of bladder, unspecified] Onset: 3 02-26-2023 Chronic Cardiac dysrhythmias (20 sources) Paroxysmal supraventricular tachycardia; Translations: [Supraventricular tachycardia] Onset: 3 08-07-2021 Chronic Chronic kidney disease (20 sources) Chronic kidney disease stage 3A ; Translations: [Stage 3a chronic kidney disease (HCC)] Onset: 3 Chronic Chronic kidney disease (1 source) Chronic kidney disease; Translations: [Stage 3a chronic kidney disease (HCC)] Onset: 3 Chronic obstructive pulmonary disease and bronchiectasis (1 source) Bronchitis, not specified as acute or chronic; Translations: [Sinobronchitis] Onset: 5 Episodic Conditions associated with dizziness or vertigo (8 sources) Postural dizziness; Translations: [Dizziness and giddiness] Onset: 5 02-04-2023 Episodic Deficiency and other anemia (3 sources) Anemia; Translations: [Anemia, unspecified] Episodic Deficiency and other anemia (1 source) Iron deficiency anemia; Translations: [Iron deficiency anemia, unspecified] 03-27-2025 Episodic Deficiency and other anemia (1 source) Iron deficiency anemia, unspecified; Translations: [Iron deficiency anemia, unspecified iron deficiency anemia type] Onset: 5 Episodic Deficiency and other anemia (1 source) Anemia, unspecified; Translations: [Anemia, unspecified type] Onset: 5 Episodic Disorders of lipid metabolism (20 sources) Mixed hyperlipidemia; Translations: [Mixed hyperlipidemia] Onset: 8 Chronic Diverticulosis and diverticulitis (20 sources) Diverticulosis of colon; Translations: [Diverticulosis of large intestine without perforation or abscess without bleeding] Onset: 0 01-02-2010 Chronic E Codes: Fall (9 sources) Accidental fall ; Translations: [Unspecified fall, initial encounter] 03-25-2022 Episodic Esophageal disorders (20 sources) Gastroesophageal reflux disease; Translations: [Gastro-esophageal reflux disease without esophagitis] Onset: 5 06-30-2005 Chronic Essential hypertension (20 sources) Essential hypertension; Translations: [Essential (primary) hypertension] Onset: 1 Chronic Fluid and electrolyte disorders (1 source) Hypokalemia; Translations: [Hypokalemia] 11-11-2023 Episodic Fracture of lower limb (18 sources) Closed fracture of talus; Translations: [Unspecified fracture of left talus, initial encounter for closed fracture] 08-07-2021 Episodic Fracture of upper limb (18 sources) Closed fracture of upper end of humerus; Translations: [Unspecified fracture of upper end of left humerus, initial encounter for closed fracture] 09-30-2020 Episodic Genitourinary congenital anomalies (20 sources) Medullary sponge kidney; Translations: [Medullary cystic kidney] Onset: 0 11-26-2009 Chronic Comment on above: left Gout and other crystal arthropathies (1 source) Calcium pyrophosphate deposition disease; Translations: [Other chondrocalcinosis, unspecified site] 04-29-2023 Chronic Hyperplasia of prostate (2 sources) Benign prostatic hyperplasia with lower urinary tract symptoms; Translations: [Benign prostatic hyperplasia with lower urinary tract symptoms] Onset: 4 Chronic Intestinal infection (7 sources) Clostridium difficile diarrhea 02-04-2023 Episodic Comment on above: Currently being bret raudel with Vancomycin Mood disorders (20 sources) Recurrent major depression in remission; Translations: [Major depressive disorder, recurrent, in remission, unspecified] Onset: 5 Chronic Neoplasms of unspecified nature or uncertain behavior (1 source) Neoplasm of bladder; Translations: [Neoplasm of unspecified behavior of bladder] Episodic Nonspecific chest pain (13 sources) Chest pain; Translations: [Chest pain, unspecified] Onset: 5 01-23-2021 Episodic Nutritional deficiencies (2 sources) Vitamin D deficiency; Translations: [Vitamin D deficiency, unspecified] Onset: 4 Chronic Nutritional deficiencies (2 sources) Cobalamin deficiency; Translations: [Deficiency of other specified B group vitamins] Onset: 5 03-27-2025 Episodic Osteoarthritis (9 sources) Degenerative joint disease involving multiple joints; Translations: [Arthropathy of joint of hand] 02-04-2023 Chronic Osteoporosis (11 sources) Osteoporosis; Translations: [Senile osteoporosis] Onset: 5 02-04-2023 Chronic Other acquired deformities (10 sources) Scoliosis deformity of spine; Translations: [Scoliosis, unspecified] 02-19-2021 Chronic Other acquired deformities (1 source) Scoliosis, unspecified; Translations: [Scoliosis of thoracolumbar spine, unspecified scoliosis type] Onset: 5 Chronic Other aftercare (1 source) Long-term current use of drug therapy; Translations: [Other termite treater (current) drug therapy] 08-10-2024 Episodic Other aftercare (1 source) Long-term current use of bisphosphonates; Translations: [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] 02-22-2025 Episodic Other bone disease and musculoskeletal deformities (20 sources) Segmental and somatic dysfunction; Translations: [Segmental and somatic dysfunction of cervical region] 02-18-2021 Episodic Other circulatory disease (7 sources) Low blood pressure; Translations: [Hypotension, unspecified] 11-20-2022 Episodic Other connective tissue disease (1 source) Presence of left artificial hip joint; Translations: [Presence of left artificial hip joint] Onset: 4 Chronic Other connective tissue disease (7 sources) Fibromyalgia 02-04-2023 Episodic Other connective tissue disease (1 source) Pain in right hand; Translations: [Bilateral hand pain] Onset: 3 Episodic Other connective tissue disease (1 source) Pain in left hand; Translations: [Bilateral hand pain] Onset: 3 Episodic Other connective tissue disease (1 source) Pain of bilateral hands; Translations: [Pain in right hand] 04-29-2023 Episodic Other connective tissue disease (1 source) Pain in left lower limb; Translations: [Pain in left leg] 03-27-2025 Episodic Other connective tissue disease (1 source) Pain in left leg; Translations: [Pain in left leg] Onset: 5 Episodic Other diseases of bladder and urethra (8 sources) Mass of urinary bladder 01-29-2023 Chronic Other diseases of bladder and urethra (5 sources) Urethral stricture 03-02-2023 Episodic Other fractures (9 sources) Compression fracture of lumbar spine; Translations: [Wedge compression fracture of unspecified lumbar vertebra, initial encounter for closed fracture] 05-24-2021 Episodic Other gastrointestinal disorders (7 sources) Irritable bowel syndrome 02-04-2023 Chronic Other gastrointestinal disorders (7 sources) Pelvic mass; Translations: [Intra-abdominal and pelvic swelling, mass and lump, unspecified site] 11-20-2022 Episodic Other gastrointestinal disorders (3 sources) Diarrhea, unspecified; Translations: [Diarrhea] 01-28-2023 Episodic Other infections; including parasitic (1 source) Personal history of other infectious and parasitic diseases; Translations: [History of COVID-19] 06-07-2024 Episodic Other injuries and conditions due to external causes (9 sources) Contusion of multiple sites; Translations: [Unspecified multiple injuries, initial encounter] 03-25-2022 Episodic Other injuries and conditions due to external causes (8 sources) Closed injury of head; Translations: [Unspecified injury of head, initial encounter] 04-02-2022 Episodic Other lower respiratory disease (11 sources) Dyspnea on exertion; Translations: [Dyspnea, unspecified] Episodic Other lower respiratory disease (9 sources) Dyspnea; Translations: [Shortness of breath] 09-17-2019 Episodic Other lower respiratory disease (4 sources) Cough; Translations: [Acute cough] 12-22-2024 Episodic Other lower respiratory disease (8 sources) Chronic cough; Translations: [Chronic cough] Onset: 5 04-20-2025 Episodic Other lower respiratory disease (1 source) Other forms of dyspnea; Translations: [HARTMANN (dyspnea on exertion)] Onset: 5 Episodic Other nervous system disorders (3 sources) Bilateral carpal tunnel syndrome; Translations: [Carpal tunnel syndrome, bilateral upper limbs] 04-29-2023 Chronic Other nervous system disorders (1 source) Neuropathy; Translations: [Polyneuropathy, unspecified] 03-27-2025 Chronic Other nervous system disorders (1 source) Disease of spinal cord, unspecified; Translations: [Disease of spinal cord, unspecified] Onset: 4 Chronic Other nervous system disorders (1 source) Polyneuropathy, unspecified; Translations: [Neuropathy] Onset: 5 Chronic Other nervous system disorders (1 source) Other chronic pain; Translations: [Chronic midline low back pain with left-sided sciatica] Onset: 4 Chronic Other non-traumatic joint disorders (3 sources) Hip pain; Translations: [Pain in left hip] Episodic Other non-traumatic joint disorders (9 sources) Pain in wrist; Translations: [Pain in right wrist] 02-14-2022 Episodic Other non-traumatic joint disorders (2 sources) Pain in right wrist; Translations: [Pain in joint, forearm] Episodic Other non-traumatic joint disorders (1 source) Multiple joint pain; Translations: [Pain in unspecified joint] 12-14-2024 Episodic Other nutritional; endocrine; and metabolic disorders (20 sources) Metabolic syndrome X; Translations: [Metabolic syndrome] 07-08-2005 Chronic Other screening for suspected conditions (not mental disorders or infectious disease) (16 sources) Patient encounter status; Translations: [Encounter for screening for malignant neoplasm of colon] Onset: 5 Episodic Other upper respiratory disease (20 sources) Allergic rhinitis; Translations: [Allergic rhinitis, unspecified] Onset: 5 06-30-2005 Chronic Other upper respiratory disease (7 sources) Seasonal allergy 02-04-2023 Chronic Other upper respiratory infections (4 sources) Chronic sinusitis; Translations: [Chronic sinusitis, unspecified] Onset: 5 06-07-2024 Chronic Other upper respiratory infections (5 sources) Acute upper respiratory infection; Translations: [Acute upper respiratory infection, unspecified] Onset: 5 Episodic Pathological fracture (20 sources) Primary osteoporosis; Translations: [Age-related osteoporosis with current pathological fracture, unspecified site, subsequent encounter for fracture with routine healing] Onset: 8 06-08-2018 Episodic Residual codes; unclassified (7 sources) H/O: tissue/organ recipient Onset: 2 02-04-2023 Chronic Comment on above: Lumbar using own jemma m cells Residual codes; unclassified (20 sources) Obstructive sleep apnea syndrome; Translations: [Obstructive sleep apnea (adult) (pediatric)] Onset: 4 01-06-2024 Chronic Residual codes; unclassified (4 sources) Obstructive sleep apnea (adult) (pediatric); Translations: [Obstructive sleep apnea (adult)(pediatric)] Onset: 4 01-06-2024 Chronic Residual codes; unclassified (8 sources) Pain; Translations: [Pain, unspecified] Onset: 5 03-28-2022 Episodic Residual codes; unclassified (1 source) Postmenopausal state; Translations: [Asymptomatic menopausal state] Episodic Spondylosis; intervertebral disc disorders; other back problems (20 sources) Cervical disc disorder; Translations: [Unspecified cervical disc disorder, mid-cervical region, unspecified level] Onset: 8 06-08-2018 Chronic Sprains and strains (18 sources) Strain of muscle and/or tendon of lower leg; Translations: [Strain of unspecified muscle and tendon at ankle and foot level, left foot, initial encounter] 04-02-2022 Episodic Syncope (2 sources) Near syncope; Translations: [Syncope and collapse] Onset: 5 Episodic Thyroid disorders (20 sources) Acquired hypothyroidism; Translations: [Hypothyroidism, unspecified] Onset: 3 Chronic Unclassified (7 sources) Carrier of Clostridioides difficile Onset: 3 02-04-2023 Comment on above: Cdiff disease alert applied on 02/04/23 per patient report due to positive stool PCR for Cdiff from 01/31/23 at [facility]. Unclassified (7 sources) Parathyroid structure (body structure) 02-04-2023 Unclassified (1 source) Low back pain, unspecified; Translations: [Low back pain, unspecified] Onset: 4 Unclassified (1 source) Acute cough; Translations: [Acute cough] Onset: 5 Past or Other Problems Problem Classification Problem Date Documented Date Episodic/Chronic Genitourinary symptoms and ill-defined conditions (1 source) Frequency of micturition; Translations: [Frequency of micturition] Onset: 5 Episodic Hemorrhoids (20 sources) Internal hemorrhoids; Translations: [Other hemorrhoids] Onset: 0 01-02-2010 Episodic Malaise and fatigue (20 sources) Malaise and fatigue; Translations: [Other malaise] Onset: 6 07-30-2010 Episodic Other aftercare (1 source) Other termite treater (current) drug therapy; Translations: [Encounter for long-term current use of medication] Onset: 5 Episodic Other connective tissue disease (20 sources) Muscle pain; Translations: [Myalgia and myositis, unspecified] Onset: 5 06-30-2005 Episodic Other connective tissue disease (20 sources) Plantar fasciitis of left foot; Translations: [Plantar fascial fibromatosis] Onset: 4 10-07-2021 Episodic Other diseases of bladder and urethra (2 sources) Unspecified urethral stricture, male, unspecified site; Translations: [Unspecified urethral stricture, male, unspecified site] Onset: 3 Episodic Other endocrine disorders (20 sources) Secondary hyperparathyroidism of nonrenal origin; Translations: [Secondary hyperparathyroidism, not elsewhere classified] Onset: 6 Resolved: 3 07-30-2010 Chronic Other fractures (20 sources) Fracture of twelfth thoracic vertebra; Translations: [Wedge compression fracture of T11-T12 vertebra, initial encounter for closed fracture] Onset: 8 06-08-2018 Episodic Other fractures (1 source) Wedge compression fracture of T11-T12 vertebra, sequela; Translations: [Compression fracture of T12 vertebra, sequela] Onset: 8 Episodic Other gastrointestinal disorders (20 sources) Diarrhea; Translations: [Diarrhea, unspecified] Onset: 0 01-02-2010 Episodic Other non-traumatic joint disorders (1 source) Pain in left hip; Translations: [Pain in left hip] Onset: 4 Episodic Residual codes; unclassified (20 sources) Persistent insomnia; Translations: [Insomnia, unspecified] Onset: 5 06-30-2005 Episodic Residual codes; unclassified (2 sources) Other specified health status; Translations: [Other specified conditions influencing health status] Onset: 4 08-25-2024 Episodic Spondylosis; intervertebral disc disorders; other back problems (20 sources) Chronic low back pain; Translations: [Lumbago with sciatica, left side] Onset: 2 Episodic Unclassified (1 source) Patient encounter status 03-27-2025 Results Test Name Value Interpretation Reference Range Facility LUNG VOLUMESon 04-21-2025 LUNG VOLUMES [facility] [address] [place] [address] Test Date: 2025-04-21 Pat Name: NELLA BENÍTEZ Department: Room: Gender: Female 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 Start of test and EOFE criteria met. Medications and Allergies were reviewed for possible drug interactions per policy. No contraindications or sensitivities were noted. No Meds taken before testing. 2 puffs Albuterol (180 mcg) delivered by MDI via holding chamber. HR pre =112/min, HR post =103/min.//LC IMPRESSION: Spirometry is normal. Negative bronchodilator response. Lung volumes are normal. Electronically Signed On 04-24-2025 14:55:09 EDT by Barbara Pimentel MD ID: [id number] Name: NELLA BENÍTEZ Race: White Ht: 59.25 in Wt: 150.20 lbs Age: 74 Gender: Female : 1950 Dx: Chronic cough_ Smoking Hx: Non-smoker Doctor: EUNICE JOE Test Date: 04/21/2025 Site: WO Tech: Elicia Lloyd PRE-BRONCH POST-BRONCH Ely LLN Pred ULN %Pred ZScore E[place] %Pred %Chg ZScore SPIROMETRY FVC 2.43 1.52 2.17 2.84 112 0.65 2.44 112 0 0.66 FEV1 1.80 1.17 1.70 2.20 106 0.33 1.86 109 3 0.51 FEV1/FVC 0.74 0.66 0.79 0.90 93 -0.70 0.76 95 2 -0.44 FEFMax 5.53 3.09 4.56 6.03 121 1.09 5.61 123 1 1.18 FEF50 1.86 0.99 2.60 4.21 71 -0.75 2.05 78 9 -0.56 FIF50 3.40 2.21 -35 FEF50/FIF50 0.55 90-100 0.93 69 FIVC 2.28 2.26 -1 DUW29-77 1.37 0.68 1.53 2.79 89 -0.26 1.51 98 9 -0.04 ExpiredTime 9.98 8.42 -15 TimeToFEFMax 0.08 0.07 -14 WIN 0.07 0.07 -6 VolExtrap% 3 3 -6 LUNG VOLUMES FRC(Pleth) 2.10 1.64 2.30 3.14 91 -0.46 ERV 0.58 0.72 79 RV(Pleth) 1.53 1.03 1.74 2.68 87 -0.44 SVC 2.18 1.52 2.17 2.84 100 0.03 IC 1.58 1.45 109 TLC(Pleth) 3.68 3.25 4.15 5.16 88 -0.83 RV/TLC(Pleth) 41 29 42 56 98 -0.07 Comments: PRE AND POST BD: Current ATS/ERS acceptability and repeatability standards for spirometry met. Start of test and EOFE criteria met. Medications and Allergies were reviewed for possible drug interactions per policy. No contraindications or sensitivities were noted. No Meds taken before testing. 2 puffs Albuterol (180 mcg) delivered by MDI via holding chamber. HR pre =112/min, HR post =103/min.//LC Normal [facility] NITRIC OXIDE, EXHALEDon 07- Elicia Lloyd, JESUS 04/21/2025 1:45 PM RESPIRATORY THERAPY ORAL EXHALED NITRIC OXIDE SERVICE DATE: 04/21/2025 SERVICE TIME: 1:45 PM Oral Exhaled Nitric Oxide measurement: 11.0 (ppb) Normal: Adult <25 ppb, pediatric (<12 years) <20 ppb High Normal / Increased: Adult 25-50 ppb, pediatric (<12 years) 20-35 ppb Moderately raised exhaled Nitric Oxide may indicate underlying inflammation, but note that: Cold and influenza can raise exhaled Nitric Oxide and some patients have higher baseline exhaled Nitric Oxide levels than others. High: Adult >50 ppb, pediatric (<12 years) >35 ppb Indicative of ongoing eosinophilic inflammation. Symptomatic patient likely to respond to steroids. Possible causes (if already on steroids): Poor compliance, recent allergen exposure, steroid dose inadequate, and steroid resistance. Note that not all patients with high exhaled nitric oxide levels display symptoms. 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 Start of test and EOFE criteria met. Medications and Allergies were reviewed for possible drug interactions per policy. No contraindications or sensitivities were noted. No Meds taken before testing. 2 puffs Albuterol (180 mcg) delivered by MDI via holding chamber. HR pre =112/min, HR post =103/min.//LC IMPRESSION: Spirometry is normal. Negative bronchodilator response. Lung volumes are normal. Electronically Signed On 04-24-2025 14:55:09 EDT by Barbara Pimentel MD ID: [id number] Name: NELLA BENÍTEZ Race: White Ht: 59.25 in Wt: 150.20 lbs Age: 74 Gender: Female : 1950 Dx: Chronic cough_ Smoking Hx: Non-smoker Doctor: EUNICE JOE Test Date: 04/21/2025 Site: Tech: Elicia Lloyd PRE-BRONCH POST-BRONCH E[place] LLN Pred ULN %Pred ZScore [place] %Pred %Chg ZScore SPIROMETRY FVC 2.43 1.52 2.17 2.84 112 0.65 2.44 112 0 0.66 FEV1 1.80 1.17 1.70 2.20 106 0.33 1.86 109 3 0.51 FEV1/FVC 0.74 0.66 0.79 0.90 93 -0.70 0.76 95 2 -0.44 FEFMax 5.53 3.09 4.56 6.03 121 1.09 5.61 123 1 1.18 FEF50 1.86 0.99 2.60 4.21 71 -0.75 2.05 78 9 -0.56 FIF50 3.40 2.21 -35 FEF50/FIF50 0.55 90-100 0.93 69 FIVC 2.28 2.26 -1 SFN92-50 1.37 0.68 1.53 2.79 89 -0.26 1.51 98 9 -0.04 ExpiredTime 9.98 8.42 -15 TimeToFEFMax 0.08 0.07 -14 WIN 0.07 0.07 -6 VolExtrap% 3 3 -6 LUNG VOLUMES FRC(Pleth) 2.10 1.64 2.30 3.14 91 -0.46 ERV 0.58 0.72 79 RV(Pleth) 1.53 1.03 1.74 2.68 87 -0.44 SVC 2.18 1.52 2.17 2.84 100 0.03 IC 1.58 1.45 109 TLC(Pleth) 3.68 3.25 4.15 5.16 88 -0.83 RV/TLC(Pleth) 41 29 42 56 98 -0.07 Comments: PRE AND POST BD: Current ATS/ERS acceptability and repeatability standards for spirometry met. Start of test and EOFE criteria met. Medications and Allergies were reviewed for possible drug interactions per policy. No contraindications or sensitivities were noted. No Meds taken before testing. 2 puffs Albuterol (180 mcg) delivered by MDI via holding chamber. HR pre =112/min, HR post =103/min.//LC FVC_PRE (L) : 2.43 L FVC_POST (L) : 2.44 L FVC_PRED (L) : 2.17 L FVC_LLN (L) : 1.52 L FVC_ULN (L) : 2.84 L FEV1_PRE (L) : 1.80 L FEV1_POST (L) : 1.86 L FEV1_PRED (L) : 1.70 L FEV1_LLN (L) : 1.17 L FEV1_ULN (L) : 2.20 L FEV1/FVC_PRE (%) : 74 % FEV1/FVC_POST (%) : 76 % FEV1/FVC_PRED (%) : 79 % FEV1/FVC_LLN (%) : 66 % XQW06_GGA (L/S) : 5.05 L/S YIS11_NBUD (L/S) : 5.33 L/S DOP07_EZA (L/S) : 0.42 L/S AXH61_SKAE (L/S) : 0.45 L/S VPY82_SVYS (L/S) : 0.34 L/S YBR98_NHT (L/S) : 0.12 L/S ENQ70_UKG (L/S) : 0.95 L/S VGW26-86%_PRE (L/S) : 1.37 L/S MTM11-65%_POST (L/S) : 1.51 L/S BDM85-81%_PRED (L/S) : 1.53 L/S OIU04-64%_LLN (L/S) : 0.68 L/S PEF_PRE (L/S) : 5.53 L/S PEF_POST (L/S) : 5.61 L/S PEFMAX_LLN (L/S) : 3.09 L/S PEFMAX_ULN (L/S) : 6.03 L/S VC BOX (L) : 2.18 L SVC_PRED (L) : 2.17 L/S SVC_LLN (L) : 1.52 L/S SVC_ULN (L/S) : 2.84 L/S IC BOX (L) : 1.58 L IC_PRED (L) : 1.45 L/S ERV BOX (L) : 0.58 L ERV_PREDICTED (L) : 0.72 L/S FET_PRE (S) : 9.98 S FET_POST (S) : 8.42 S FRC BOX (L) : 2.10 L RV BOX (L) : 1.53 L RV_PLETH_PRED (L) : 1.74 L TLC BOX (L) : 3.68 L TLC_PLETH_PRED (L) : 4.15 L RV/TLC BOX (%) : 41 % RV_TLC_PLETH_PRED (%) : 42 % [facility]INTMWS[facility] -------- NELLA BENÍTEZ ([id number]) 1950 F Date Time Provider Department 04/12/25 EUNICE JOE INTWS During your visit today, we recorded the following information about you: Heather Feliz RN 04/12/2025 1:53 PM Signed Patient calls and states that her last antibiotic was 04/03. Patient reports that her symptoms came back on 04/07. Patient had take 2 rounds of Omnicef. Patient asking if anything else can be called in? Please review and advise, LYNETTE Crystal Liza D, MD 04/15/2025 2:51 PM Signed Check on patient on Thursday to verify what symptoms she is having. Some symptoms may still be from clearing of the inflammation after an infection rather than signs of persistent or recurrent infection. May need to see ENT for sinus symptoms or pulmonology for respiratory issues. Consider PFTs Flakita Peguero RN 04/17/2025 11:51 AM Signed Called and left a voicemail for the Patient to call back and ask for a nurse to receive the providers message. LYNETTE Estraad Beth, LPN 04/17/2025 12:49 PM Signed Patient returned call and went over notes from Dr Joe, patient said she is coughing, post nasal drainage, blowing clear secretions, white bumps on back of her tongue, not as achy as she had been, no fever. She is taking tessalon perles, coricidin, tylenol as needed. She said it was 04/30/2024 when she COVID and pneumonia. Aide Goode LPN 04/18/2025 3:57 PM Signed Please see message below. Pt also calls to report that provider suggested pulmonary function test but there isn't an order for this. Call pt with provider message. FRANCIS Schmidt Liza D, MD 04/20/2025 2:39 PM Signed Sounds like infection is resolved given clear secretions. PFTs ordered. Any soreness in mouth? Wondering whether has thrush now after antibiotics for infection, Flakita Peguero RN 04/20/2025 5:13 PM Signed Pt called and is notified of providers message. Pt voices understanding. Denies soreness, states some white bumps and coating. Pt put through to scheduling to set up PFTs. Flakita Peguero RN Allergies As of Date: 04/12/2025 Noted Allergy Reaction LATEX 04/06/2007 2 - Rash 9 - Itching ACTONEL (RISEDRONATE SODIUM) 10/30/2005 8 - GI Upset FOSAMAX (ALENDRONATE SODIUM) 10/30/2005 8 - GI Upset Date Reviewed: 03/27/2025 Reviewed by: Cheryle Manrique LPN - Fully Assessed Reason for Visit: Patient Update [1234] Primary Visit Diagnosis:Chronic cough [R05.3] Order(s):SPIROMETRY - BASELINE AND POST DILATOR [0279801] Order #: [id number]: 1 FUTURE NITRIC OXIDE, EXHALED [[id number]] Order #: [id number]: 1 FUTURE LUNG VOLUMES [[id number]] Order #: [id number]: 1 FUTURE Prescriptions as of 04/20/2025 - albuterol HFA (VENTOLIN HFA) 90 mcg/actuation inhaler Inhale 2 puffs as instructed every 4 hours as needed for wheezing/shortness of breath (and coughin spells). - ALPRAZolam (XANAX) 0.5 mg tablet Take 1 tablet by mouth two times a day as needed for up to 60 days. For Anxiety and SOB related to throat/laryngospasm as directed Patient should start on April 16, 2025. - iron polysaccharide complex (NU-IRON) 150 mg iron capsule Take 1 capsule by mouth once daily. - cyanocobalamin (VITAMIN B-12) 1,000 mcg tab Take 1 tablet by mouth once daily. - denosumab (PROLIA) 60 mg/mL Inject 60 mg subcutaneously one time only. every 6 months. - busPIRone (BUSPAR) 15 mg tablet Take 1.5 tablets by mouth two times a day. - tiZANidine (ZANAFLEX) 4 mg tablet Take 1 tablet by mouth two times a day as needed. - levothyroxine (SYNTHROID) 50 mcg tablet Take 1 tablet by mouth once daily. - pantoprazole DR (PROTONIX) 40 mg tablet Take 1 tablet by mouth two times a day. As directed - buPROPion SR (WELLBUTRIN SR) 150 mg 12 hr tablet Take 1 tablet by mouth once daily. - sucralfate (CARAFATE) 1 gram tablet Take 1 tablet by mouth four times daily. As directed for flare ups. May dissolve in 1 to 2 teaspoons of water then swallow. - Cholecalciferol, Vitamin D3, 125 mcg (5,000 unit) cap Hold for the month of August then resume once weekly in September. - citalopram (CELEXA) 40 mg tablet Take 1 tablet by mouth once daily. - meloxicam (MOBIC) 15 mg tablet Take 1 tablet by mouth once daily. Take with food. - acetaminophen (TYLENOL 8 HOUR) 650 mg CR tablet Take 2 tablets by mouth every 8 hours as needed for pain. (try this one) - fexofenadine (ALVINA) 180 mg tablet Take 180 mg by mouth once daily. Problem List As Of Date 04/12/2025 Noted Resolved Fibromyalgia [TWW9943] 06/30/2005 Recurrent major depressive disorder, in remissi*06/30/2005 PERSISTENT INSOMNIA [G47.00] 06/30/2005 ESOPHAGEAL REFLUX [K21.9] 06/30/2005 ALLERGIC RHINITIS NOS [J30.9] 06/30/2005 Osteoporosis with current pathological fracture* DYSMETABOLIC SYNDROME X [E88.810] Secondary hyperp (more content not included)... Normal [facility] CNOVon 03-27-2025 CNOV Office Visit (INTMWS ) -------- NELLA BENÍTEZ ([id number]) 1950 F Date Time Provider Department 03/27/25 11:00 AM EUNICE JOE INTMWS During your visit today, we recorded the following information about you: Pulse Respiration Blood pressure 76/minute 12/minute 138/88 Eunice Joe MD 03/27/2025 1:04 PM Signed This note was created using [employer]. Subjective Nella Benítez is a 74 year old female. SUBJECTIVE: Nella Benítez is a 74-year-old female with a history of recurrent respiratory infections, presenting for follow-up on persistent upper respiratory symptoms and leg pain. Nella reports ongoing upper respiratory symptoms, including cough and nasal drainage, following a recent illness that began approximately 1-2 months ago. She was evaluated at urgent care and prescribed Omnicef, which she completed last . She notes that her symptoms initially improved during the first 3 days of antibiotic treatment but worsened after completion, with a scratchy throat developing by night. She denies requesting the antibiotic and reports that it was prescribed after a chest x-ray, which was negative for pneumonia. She has been using Tessalon Perles for cough suppression but is hesitant to take it during the day due to potential drowsiness. She denies using albuterol currently. Nella also reports experiencing sharp, painful sensations in her left medial thigh and calf, which she suspects may be related to a previously diagnosed L5 pinched nerve. She notes that the pain worsens with pressure and is associated with muscle spasms. She has tried various topical treatments, including Voltaren, Nervive, Biofreeze, and lidoderm patches, with only short-term relief. She has also used tizanidine for muscle spasms. Additionally, Nella has a history of low B12 and iron levels, with recent labs showing B12 at 208 pg/mL and iron at 31 mcg/dL. She has been taking oral B12 supplements (1,000 mcg daily) and reports symptoms consistent with B12 deficiency, including leg heaviness, weakness, and fatigue. She denies any dietary changes or gastrointestinal symptoms that could explain the low iron levels. She also reports a recent epidural steroid injection for lumbar canal stenosis, which provided relief for about a week and a half. 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 For Anxiety and SOB related to throat/laryngospasm as directed iron polysaccharide complex (NU-IRON) 150 mg iron capsule Take 1 capsule by mouth once daily. cyanocobalamin (VITAMIN B-12) 1,000 mcg tab Take 1 tablet by mouth once daily. denosumab (PROLIA) 60 mg/mL Inject 60 mg subcutaneously one time only. every 6 months. busPIRone (BUSPAR) 15 mg tablet Take 1.5 tablets by mouth two times a day. tiZANidine (ZANAFLEX) 4 mg tablet Take 1 tablet by mouth two times a day as needed. levothyroxine (SYNTHROID) 50 mcg tablet Take 1 tablet by mouth once daily. pantoprazole DR (PROTONIX) 40 mg tablet Take 1 tablet by mouth two times a day. As directed buPROPion SR (WELLBUTRIN SR) 150 mg 12 hr tablet Take 1 tablet by mouth once daily. sucralfate (CARAFATE) 1 gram tablet Take 1 tablet by mouth four times daily. As directed for flare ups. May dissolve in 1 to 2 teaspoons of water then swallow. Cholecalciferol, Vitamin D3, 125 mcg (5,000 unit) cap Hold for the month of August then resume once weekly in September. citalopram (CELEXA) 40 mg tablet Take 1 tablet by mouth once daily. meloxicam (MOBIC) 15 mg tablet Take 1 tablet by mouth once daily. Take with food. acetaminophen (TYLENOL 8 HOUR) 650 mg CR tablet Take 2 tablets by mouth every 8 hours as needed for pain. (try this one) fexofenadine (ALVINA) 180 mg tablet Take 180 mg by mouth once daily. cefdinir (OMNICEF) 300 mg capsule Take 1 capsule by mouth two times a day for 7 days. albuterol HFA (VENTOLIN HFA) 90 mcg/actuation inhaler Inhale 2 puffs as instructed every 4 hours as needed for wheezing/shortness of breath (and coughin spells). [START ON 04/16/20 (more content not included)... Normal [facility] Coronary Angiography CTon Coronary Angiography CT [facility] [address] [place] [address] 03/27/25 1801 MR#: [id number] Acct: [id number] Name: NELLA BENÍTEZ Rep #: [id number] : 1950 74 From: Ar Young MD PCP: Dr. Eunice Joe MD Status:REG REF Y Location: CT Calcium Scoring Date of Study:: 03/09/25 Indications Indications: CP Coronary Calcium Scoring: High-resolution Computed Tomographic imaging of the chest was performed on [50 ], with particular attention paid to the coronary arteries. Images from the examination were analyzed for the presence and extent of coronary artery calcification , using coronary calcium quantification software. The patient tolerated the procedure well and there were no complications. The results of the coronary calcification analysis are provided below. Findings Coronary Artery Left Main (LM): 0 Left Anterior Descending (LAD): 0 Left Circumflex (LCX): 0 Right Coronary Artery (RCA): 0 Total Agatston Score: 0 Percentile Rankin Calcium Scoring Interpretation: Different methods to categorize the overall amount of coronary plaque. Overall amount CAC SIS Visual of coronary plaque P1 Mild -100 <2 1-2 vessels with mild amount of plaque P2 Moderate 101-300 3-4 1-2 vessels with moderate amount, 3 vessels with mild amount of plaque P3 Severe 301-999 5-7 3 vessels with moderate amount, 1 vessel with severe amount of plaque P4 Extensive >1000 >8 2-3 vessels with severe amount of plaque Conclusion: No atherosclerotic plaquing 03/27/251803 Date Ar Young MD Cosigner Signature (if applicable): Date CC: Dr. Ar Young MD; Dr. Eunice Joe MD; JOSE Vela Signed Normal [facility] 03-16-2025 [facility] Office Visit (UCWSTR ) -------- NELLA BENÍTEZ ([id number]) 1950 F Date Time Provider Department 03/16/25 11:00 AM OCTAVIO SALAS [facility] During your visit today, we recorded the following information about you: Temperature Pulse Respiration Blood pressure 98.8 degrees 97/minute 24/minute 140/91 Weight 67 kg Octavio Salas APRN.MASTER [employer] GL[employer] TECHNICIAN 03/16/2025 1:09 PM Signed [facility] Subjective Nella Benítez is a 74 year old female. Patient presents with: Cough: Chest congestion, SOB, wheeze, tightness in chest, dry cough, sore throat, headache, low grade fever x 4 days HPI Cough and Dyspnea: - Onset of symptoms began after hosting 17 people at her house on Thursday. - Negative at-home COVID test. - Denies wheezing. - History of bronchitis; no history of asthma or other upper respiratory issues. - Previous use of albuterol inhaler during a COVID-19 and pneumonia episode in April of last year. - Currently taking Mucinex, concerned about chest congestion. Pharyngitis: - Reports sore throat with onset on Thursday. - Describes throat as "really red" on the right side. Allergies: - Latex allergy. - Poor tolerance to Augmentin and doxycycline, with the latter causing diarrhea. Additional Information: - Recently started on iron supplements. - is currently well and waiting in the car. Review of Systems Constitutional: Positive for fever. Negative for fatigue. HENT: Positive for congestion, postnasal drip, sinus pressure, sinus pain and sore throat. Respiratory: Positive for cough. Negative for choking, shortness of breath and wheezing. Cardiovascular: Negative for chest pain. Objective BP 140/91 Pulse 97 Temp 37.1 ?C (98.8 ?F) Resp 24 Wt 67 kg (147 lb 11.3 oz) SpO2 97% BMI 29.33 kg/m? 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 Toth) VAGINAL HYSTERECTOMY UTERUS 250 GM/< vaginal with bilateral oophorectomy ALLERGIES Latex, Actonel [Risedronate Sodium], and Fosamax [Alendronate Sodium] MEDICATIONS iron polysaccharide complex (NU-IRON) 150 mg iron capsule Take 1 capsule by mouth once daily. cyanocobalamin (VITAMIN B-12) 1,000 mcg tab Take 1 tablet by mouth once daily. denosumab (PROLIA) 60 mg/mL Inject 60 mg subcutaneously one time only. every 6 months. busPIRone (BUSPAR) 15 mg tablet Take 1.5 tablets by mouth two times a day. ALPRAZolam (XANAX) 0.5 mg tablet Take 1 tablet by mouth two times a day as needed for up to 60 days. For Anxiety and SOB related to throat/laryngospasm as directed tiZANidine (ZANAFLEX) 4 mg tablet Take 1 tablet by mouth two times a day as needed. levothyroxine (SYNTHROID) 50 mcg tablet Take 1 tablet by mouth once daily. pantoprazole DR (PROTONIX) 40 mg tablet Take 1 tablet by mouth two times a day. As directed buPROPion SR (WELLBUTRIN SR) 150 mg 12 hr tablet Take 1 tablet by mouth once daily. sucralfate (CARAFATE) 1 gram tablet Take 1 tablet by mouth four times daily. As directed for flare ups. May dissolve in 1 to 2 teaspoons of water then swallow. Cholecalciferol, Vitamin D3, 125 mcg (5,000 unit) cap Hold for the month of August then resume once weekly in September. citalopram (CELEXA) 40 mg tablet Take 1 tablet by mouth once daily. meloxicam (MOBIC) 15 mg tablet Take 1 tablet by mouth once daily. Take with food. acetaminophen (TYLENOL 8 HOUR) 650 mg CR tablet Take 2 tablets by mouth every 8 hours as needed for pain. (try this one) fexofenadine (ALVINA) 180 mg tablet Take 180 mg by mouth once daily. cefdinir (OMNICEF) 300 mg capsule Take 1 capsule by mouth two times a day for 7 days. FAMILY HISTORY Problem Relation Age of Onset other (hodgkins [Other]) Father Osteoporosis Mother Asthma Sister (more content not included)... Normal [facility] XR CHEST 2V FRONTAL/LATon XR CHEST 2V FRONTAL/LAT * * *Final Repor t* * * DATE OF EXAM: Mar 16 2025 11:42AM WOX 5291 - XR CHEST 2V FRONTAL/LAT / PROCEDURE REASON: Acute cough * * * * Physician Interpretation * * * * EXAMINATION: CHEST RADIOGRAPH (2 VIEW FRONTAL and LATERAL) CLINICAL HISTORY: Acute cough MQ: XC2_6 EXAM DATE/TIME: 03/16/2025 11:42 AM COMPARISON: 12/22/2024 RESULT: Lines, tubes, and devices: None. Lungs and pleura: No consolidation. Focal curvilinear density lateral RIGHT base not clearly changed from most recent previous study. No lung mass. No pleural effusion. No pneumothorax. Cardiomediastinal silhouette: Air-containing prominent retrocardiac density consistent with previous CT findings of a large hiatal hernia. Bones and soft tissues: Thoracic dextroscoliosis IMPRESSION: No acute radiographic abnormality. Focal scarring or atelectasis LEFT lung base not clearly changed from prior study. Large hiatal hernia. Scoliosis Guest Attendant: Moveline Transcribe Date/Time: Mar 16 2025 12:02P Dictated by : JIMENEZ KNOX MD This examination was interpreted and the report reviewed and electronically signed by: JIMENEZ KNOX MD on Mar 16 2025 12:04PM EST [id number] Normal [facility] XR Chest PA and Lateralon IMPRESSION: No acute radiographic abnormality. Focal scarring or atelectasis LEFT lung base not clearly changed from prior study. Large hiatal hernia. Scoliosis Guest Attendant: PSCAzureBooker Transcribe Date/Time: Mar 16 2025 12:02P Dictated by : JIMENEZ KNOX MD This examination was interpreted and the report reviewed and electronically signed by: JIMENEZ KNOX MD on Mar 16 2025 12:04PM EST DIVISION OF RADIOLOGY * * *Final Report* * * DATE OF EXAM: Mar 16 2025 11:42AM WOX 5291 - XR CHEST 2V FRONTAL/LAT / PROCEDURE REASON: Acute cough * * * * Physician Interpretation * * * * EXAMINATION: CHEST RADIOGRAPH (2 VIEW FRONTAL & LATERAL) CLINICAL HISTORY: Acute cough MQ: XC2_6 EXAM DATE/TIME: 03/16/2025 11:42 AM COMPARISON: 12/22/2024 RESULT: Lines, tubes, and devices: None. Lungs and pleura: No consolidation. Focal curvilinear density lateral RIGHT base not clearly changed from most recent previous study. No lung mass. No pleural effusion. No pneumothorax. Cardiomediastinal silhouette: Air-containing prominent retrocardiac density consistent with previous CT findings of a large hiatal hernia. Bones and soft tissues: Thoracic dextroscoliosis DIVISION OF RADIOLOGY Provider, [facility] - 03/16/2025 * * *Final Report* * * DATE OF EXAM: Mar 16 2025 11:42AM WOX 5291 - XR CHEST 2V FRONTAL/LAT / PROCEDURE REASON: Acute cough * * * * Physician Interpretation * * * * EXAMINATION: CHEST RADIOGRAPH (2 VIEW FRONTAL & LATERAL) CLINICAL HISTORY: Acute cough MQ: XC2_6 EXAM DATE/TIME: 03/16/2025 11:42 AM COMPARISON: 12/22/2024 RESULT: Lines, tubes, and devices: None. Lungs and pleura: No consolidation. Focal curvilinear density lateral RIGHT base not clearly changed from most recent previous study. No lung mass. No pleural effusion. No pneumothorax. Cardiomediastinal silhouette: Air-containing prominent retrocardiac density consistent with previous CT findings of a large hiatal hernia. Bones and soft tissues: Thoracic dextroscoliosis IMPRESSION IMPRESSION: No acute radiographic abnormality. Focal scarring or atelectasis LEFT lung base not clearly changed from prior study. Large hiatal hernia. Scoliosis Guest Attendant: PSCB Transcribe Date/Time: Mar 16 2025 12:02P Dictated by : JIMENEZ KNOX MD This examination was interpreted and the report reviewed and electronically signed by: JIMENEZ KNOX MD on Mar 16 2025 12:04PM EST [facility] Radiology Study observation (narrative) [facility] XR Chest PA and LateralOrder ed By: [facility] Provider on 03-16-2025 [facility] Limited Chest CT Cardiac Onl yon 03-09-[address] Cardiac Only [facility] [address] [place] [address] Cardiac Only MR#: [id number] Acct: [id number] Name: NELLA BENÍTEZ Rep #: [id number] : 1950 F 74 From: Chin ames MD PCP: Dr. Eunice Joe MD Status: REG REF Study: Limited Chest CT Cardiac Only Date of Exam: Exam# [id number] Ordering Dr: Jayden Reyes PA PROCEDURE: LIMITED CHEST CT CARDIAC ONLY REASON FOR EXAM: CA SCORE CHRISTA TECHNIQUE: Supine chest CT without contrast, high resolution CT (HRCT) protocol. One or more dose reduction techniques were used (e.g., Automated exposure control, adjustment of the mA and/or kV according to patient size, use of iterative reconstruction technique). Radiation dose report: CTDI L volume: 12.19 mGy. DLP: 195.04. COMPARISON: Prior study dated November 20, 2022. FINDINGS: Hardware: None No evidence of coronary artery calcification. There is elevation of the right hemidiaphragm. Scarring at the left lung base. CT/Limited Chest CT Cardiac Only IMPRESSION: Coronary artery calcification (CAC) is is absent Elevation of the left hemidiaphragm with scarring at the left lung base. Reading Location: [facility] CC: Dr. Eunice Joe MD; JOSE Vela Guest Attendant: Signed Normal [facility] CNOVon 02-28-2025 CNOV Office Visit (INTMWS ) -------- NELLA BENÍTEZ ([id number]) 1950 F Date Time Provider Department 02/28/25 3:40 PM ABNER DENNY INTMWS During your visit today, we recorded the following information about you: Pulse Respiration Blood pressure Weight 70/minute 32/minute 110/78 67.1 kg Abner Denny APRN.MASTER [employer] TECHNICIAN 02/28/2025 4:28 PM Signed SUBJECTIVE Nella Benítez is a 74 year old female here today for acute concern. Chief Complaint Patient presents with: Dizziness: and shortness of breath off and on for several months Had 1 episode last month were she clasped to the floor had seen with cardiology last month but symptoms worsening was after seeing cardiology HPI Nella is a 74-year-old female with a history of SVT, presenting with dyspnea, dizziness, and a recent episode of collapse. Nella reports experiencing dyspnea and dizziness on exertion, leading to feelings of weakness. During these episodes, her usually assists her until the symptoms pass. She describes a recent incident where she collapsed after getting out of bed to close a door. She experienced a momentary blackout, describing it as "darkness," and was unable to return to bed, collapsing to the floor instead. She was able to call for help and subsequently lay down for a while before crawling back to bed. She notes that her blood pressure was significantly lower than usual during this episode, ranging from 80s/60s to 90s/60s, with a pulse in the 70s. She drank Gatorade, water, and 7-Up, which she believes helped improve her condition, though she continued to feel dizzy while in bed. She mentions that it is not unusual for her to feel lightheaded when transitioning from a sitting to a standing position. Nella also reports intermittent tremors, particularly noticeable when pointing, which have been present for a while but were not previously mentioned. She expresses concern about the combination of symptoms, including dyspnea, lightheadedness, and tremors, and is unable to determine their cause. She notes that her child development teacher initially saw her for SVT, which was ablated, and released her unless she had further issues. She did not mention dyspnea during her initial cardiology visit. Recent blood work on the showed stable kidney and liver function, with a slight improvement in hemoglobin from 10.5 to 10.6. She denies any known bleeding. She questions whether her low hemoglobin could be contributing to her dyspnea and dizziness. She denies wheezing, chest pain, or palpitations but describes a rapid heart rate that she can hear pounding in her head, even when lying down to sleep. She notes that her chest feels tight when she is anxious or nervous. Nella also reports low energy and heavy legs, attributing these symptoms to her low hemoglobin. She mentions a history of COVID-19 and pneumonia, which she believes significantly affected her health. She also has a history of urethelial cancer, with her last cystoscopy in December showing no signs of cancer. She does not require another cystoscopy for a year. She had a colonoscopy last year and a Cologuard test before that. She has a history of back issues, including a pinched L5 and lumbar compression fractures, for which she received an epidural on January 10. She notes that the epidural helped, but she is starting to feel discomfort again, especially at night. She takes Xanax and tizanidine at night to help with sleep but reports difficulty getting comfortable and frequent trips to the bathroom. She expresses a desire to avoid opioid use, which she used for several years in the past. Her medications were reviewed today and her list is now up to date. Medications Current Outpatient Medications Medication Sig denosumab (PROLIA) 60 mg/mL Inject 60 mg subcutaneously one time only. every 6 months. busPIRone (BUSPAR) 15 mg tablet Take 1.5 tablets by mouth two times a day. ALPRAZolam (XANAX) 0.5 mg tablet Take 1 tablet by mouth two times a day as needed for up to 60 days. For Anxiety and SOB related to throat/laryngospasm as directed tiZANidine (ZANAFLEX) 4 mg tablet Take 1 tablet by mouth two times a day as needed. levothyroxine (SYNTHROID) 50 mcg tablet Take 1 tablet by mouth once daily. pantoprazole DR (PROTONIX) 40 mg tablet Take 1 tablet by mouth two times a day. As directed buPROPion SR (WELLBUTRIN SR) 150 mg 12 hr tablet Take 1 tablet by mouth once daily. sucralfate (CARAFATE) 1 gram tablet Take 1 tablet by mouth four times daily. As directed for flare ups. May dissolve in 1 to 2 teaspoons of water then swallow. Cholecalciferol, Vitamin D3, 125 mcg (5,000 unit) cap Hold for the month of August then resume once weekly in September. citalopram (CELEXA) 40 mg tablet Take 1 tablet by mouth once daily. meloxicam (MOBIC) 15 mg tablet Take 1 tablet by mouth once daily. Take wi (more content not included)... Normal [facility] Ferritin [Mass/Vol] 15.6 ng/mL Normal 14.7-205.1 [facility] Comment on above: Order Comment: Speci men Type: BLOOD SPECIMENOrdering Facility: [facility] Address: [address] [place] [address] Performed By: #### 1 9123-9, 2276-4, 85709-1 ####[facility] LABCLIA [id number] [place] [address] [place] Folate SerPl-mCncon 02-29-20 Folate [Mass/Vol] 8.5 ng/mL Normal >4.7 [facility] Comment on above: Order Comment: Speci men Type: BLOOD SPECIMEN Ordering Facility: [facility] Address: [address] [place] [address] Performed By: #### 2 4323-8, 2731-8 #### [facility] CLIA [id number] [address] [place] [address] [place] Iron and Iron binding capaci [facility] 02-28-2025 Iron [Mass/Vol] 31 ug/dL Low 41-186 [facility] Comment on above: Order Comment: Speci men Type: BLOOD SPECIMENOrdering Facility: [facility] Address: [address] [place] [address] Performed By: #### 1 9123-9, 2276-4, 55017-2 ####[facility] LABCLIA [id number] [place] [address] [place] Iron binding capacity [Mass/Vol] 378 ug/dL Normal 232-386 [facility] Comment on above: Order Comment: Speci men Type: BLOOD SPECIMENOrdering Facility: [facility] Address: [address] [place] [address] Performed By: #### 1 9123-9, 2276-4, 59493-7 ####[facility] LABCLIA [id number] [place] [id number] [place] Iron/TIBC [Molar ratio] 8.2 % Low 15.0-57.0 C [facility] Comment on above: Order Comment: Speci men Type: BLOOD SPECIMENOrdering Facility: [facility] Address: [address] [place] [address] Performed By: #### 1 9123-9, 2276-4, 95587-5 ####[facility] LABCLIA [id number] [place] [address] [place] Magnesium SerPl-mCncon 02-28 Magnesium [Mass/Vol] 1.9 mg/dL Normal 1.7-2.3 [facility] Comment on above: Order Comment: Speci men Type: BLOOD SPECIMENOrdering Facility: [facility] Address: [address] [place] [address] Performed By: #### 1 9123-9, 2276-4, 30472-5 ####[facility] LABIA [id number] [place] [address] [place] Vit B12 SerPl-mCncon 025 Cobalamin (Vitamin B12) [Mass/Vol] 208 pg/mL Low 232-1245 [facility] Comment on above: Order Comment: Speci men Type: BLOOD SPECIMEN Ordering Facility: [facility] Address: [address] [place] [address] Performed By: #### 2 4323-8, 2731-8 #### [facility] CLIA [id number] [address] [place] [address] [place] 25(OH)D3 SerPl-mCncon 2024 25-hydroxyvitamin D3 [Mass/Vol] 58.3 ng/mL Normal 31.0-80.0 [facility] Comment on above: Order Comment: Speci men Type: BLOOD SPECIMENOrdering Facility: [facility] Address: [address] [place] [address] Result Comment: Clas sification of 25 [place] Vitamin D status: Deficiency/Insufficiency: < or = 30 ng/ml. Sufficiency/Optimal Levels: 31-80 ng/mL Toxicity: > 100 ng/mL. Test performed by chemiluminescent immunoassay. Performed By: #### 1 989-3 ####[facility] LABCLIA [id number] [place] [address] [place] CBC panel Auto (Bld)on 02-23 Erythrocyte distribution width (RBC) [Ratio] 15.6 % High 11.5-15.0 [facility] Comment on above: Order Comment: Lenka oneill Type: BLOOD SPECIMEN Ordering Facility: [facility] Address: [address] [place] [address] Performed By: #### 5 8410-2 #### [facility] CLIA [id number] [address] [place] [address] [place] Hematocrit (Bld) [Volume fraction] 34.7 % Low 36.0-46.0 [facility] Comment on above: Order Comment: Eduini men Type: BLOOD SPECIMEN Ordering Facility: [facility] Address: [address] [place] [address] Performed By: #### 5 8410-2 #### [facility] CLIA [id number] [address] [place] [address] [place] Hemoglobin (Bld) [Mass/Vol] 10.6 g/dL Low 11.5-15.5 [facility] Comment on above: Order Comment: Speci men Type: BLOOD SPECIMEN Ordering Facility: [facility] Address: [address] [place] [address] Performed By: #### 5 8410-2 #### [facility] CLIA [id number] [address] [place] [address] [place] MCH (RBC) [Entitic mass] 27.0 pg Normal 26.0-34.0 [facility] Comment on above: Order Comment: Speci men Type: BLOOD SPECIMEN Ordering Facility: [facility] Address: [address] [place] [address] Performed By: #### 5 8410-2 #### [facility] CLIA [id number] [address] [place] [address] [place] MCHC (RBC) [Mass/Vol] 30.5 g/dL Normal 30.5-36.0 [facility] Comment on above: Order Comment: Speci men Type: BLOOD SPECIMEN Ordering Facility: [facility] Address: [address] [place] [address] Performed By: #### 5 8410-2 #### [facility] CLIA [id number] [address] [place] [address] [place] MCV (RBC) [Entitic vol] 88.3 fL Normal 80.0-100.0 [facility] Comment on above: Order Comment: Speci men Type: BLOOD SPECIMEN Ordering Facility: [facility] Address: [address] [place] [address] Performed By: #### 5 8410-2 #### [facility] CLIA [id number] [address] [place] [address] [place] Nucleated RBC (Bld) [#/Vol] 10*3/uL Normal <0.01 [facility] Comment on above: Order Comment: Speci men Type: BLOOD SPECIMEN Ordering Facility: [facility] Address: [address] [place] [address] Performed By: #### 5 8410-2 #### [facility] CLIA [id number] [address] [place] [address] [place] Platelet mean volume (Bld) [Entitic vol] 9.5 fL Normal 9.0-12.7 [facility] Comment on above: Order Comment: Speci men Type: BLOOD SPECIMEN Ordering Facility: [facility] Address: [address] [place] [address] Performed By: #### 5 8410-2 #### [facility] CLIA [id number] [address] [place] [address] [place] Platelets (Bld) [#/Vol] 453 10*3/uL High 150-400 [facility] Comment on above: Order Comment: Speci men Type: BLOOD SPECIMEN Ordering Facility: [facility] Address: [address] [place] [address] Performed By: #### 5 8410-2 #### [facility] CLIA [id number] [address] [place] [address] [place] RBC (Bld) [#/Vol] 3.93 10*6/uL Normal 3.90-5.20 [facility] Comment on above: Order Comment: Speci men Type: BLOOD SPECIMEN Ordering Facility: [facility] Address: [address] [place] [address] Performed By: #### 5 8410-2 #### [facility] CLIA [id number] [address] [place] [address] [place] WBC (Bld) [#/Vol] 8.32 10*3/uL Normal 3.70-11.00 [facility] Comment on above: Order Comment: Speci men Type: BLOOD SPECIMEN Ordering Facility: [facility] Address: [address] [place] [address] Performed By: #### 5 8410-2 #### [facility] CLIA [id number] [address] [place], [place] [address] [place] Comprehensive metabolic 2000 panelon 02-23-2025 Albumin [Mass/Vol] 4.3 g/dL Normal 3.9-4.[address] [facility] Comment on above: Order Comment: Speci men Type: BLOOD SPECIMEN Ordering Facility: [facility] Address: [address] [place] [address] [place] [address] Performed By: #### 2 4323-8, 2731-05 #### [facility] CLIA [id number] [address] [address] [place] ALP [Catalytic activity/Vol] 52 U/L Normal 34-123 [facility] Comment on above: Order Comment: Speci men Type: BLOOD SPECIMEN Ordering Facility: [facility] Address: [facility] [place] [address] Performed By: #### 2 4323-8, 8 #### [facility] CLIA [id number] [address] [place] [id number] [place] ALT [Catalytic activity/Vol] 13 U/L Normal 7-38 [facility] Comment on above: Order Comment: Speci men Type: BLOOD SPECIMEN Ordering Facility: [facility] Address: [facility] [place] [address] Performed By: #### 2 4323-8, 8 #### [facility] CLIA [id number] [facility] [place] [id number] [place] Anion gap [Moles/Vol] 14 mmol/L Normal 8-15 [facility] Comment on above: Order Comment: Speci men Type: BLOOD SPECIMEN Ordering Facility: [facility] Address: [facility] [place] [address] Performed By: #### 2 4323-8, 8 #### [facility] CLIA [id number] [address] [place] [id number] [place] AST [Catalytic activity/Vol] 16 U/L Normal 13-35 [facility] Comment on above: Order Comment: Speci men Type: BLOOD SPECIMEN Ordering Facility: [facility] Address: [facility] [place] [address] Performed By: #### 2 4323-8, 8 #### [facility] CLIA [id number] [address] [place] [id number] [place] Bilirubin [Mass/Vol] 0.3 mg/dL Normal 0.2-1.3 [facility] Comment on above: Order Comment: Speci men Type: BLOOD SPECIMEN Ordering Facility: [facility] Address: [address] [place] [address] Performed By: #### 2 4323-8, 2731-05 #### [facility] CLIA [id number] [address] [place] [address] [place] Calcium [Mass/Vol] 9.1 mg/dL Normal 8.5-10.[address] [facility] Comment on above: Order Comment: Speci men Type: BLOOD SPECIMEN Ordering Facility: [facility] Address: [address] [place] [address] Performed By: #### 2 432-8, 2731-05 #### [facility] CLIA [id number] [address] [place] [address] [place] Chloride [Moles/Vol] 103 mmol/L Normal 98-107 [facility] Comment on above: Order Comment: Speci men Type: BLOOD SPECIMEN Ordering Facility: [facility] Address: [address] [place] [address] Performed By: #### 2 432-8, 2731-05 #### [facility] CLIA [id number] [address] [place] [address] [place] CO2 [Moles/Vol] 20 mmol/L Low 22-30 [facility] Comment on above: Order Comment: Speci men Type: BLOOD SPECIMEN Ordering Facility: [facility] Address: [address] [place] [address] Performed By: #### 2 4323-8, 2731-05 #### [facility] CLIA [id number] [address] [place], [place] [address] [place] Creatinine [Mass/Vol] 1.02 mg/dL High 0.58-0.96 [facility] Comment on above: Order Comment: Speci men Type: BLOOD SPECIMEN Ordering Facility: [facility] Address: [address] [place] [address] Performed By: #### 2 4323-8, 2731-05 #### [facility] CLIA [id number] [facility] [place] [address] [place] Creatinine and Glomerular filtration rate.predicted panel (S/P/Bld) 58 mL/min/1.73m??? Low >=60 [facility] Comment on above: Order Comment: Lenka oneill Type: BLOOD SPECIMEN Ordering Facility: [facility] Address: [address] [place] [address] Result Comment: Jessika mated Glomerular Filtration Rate (eGFR) is calculated using the 2020 CKD-EPI creatinine equation. This equation utilizes serum creatinine, sex, and age as parameters. The creatinine assay has traceable calibration to isotope dilution-mass spectrometry. Refer to KDIGO guidelines for clinical interpretation. In patients with unstable renal function, e.g. those with acute kidney injury, the eGFR may not accurately reflect actual GFR. Performed By: #### 2 4323-8, 8 #### [facility] CLIA [id number] [address] [place] [address] [place] Glucose [Mass/Vol] 80 mg/dL Normal 74-[address] [facility] Comment on above: Order Comment: Lenka oneill Type: BLOOD SPECIMEN Ordering Facility: [facility] Address: [address] [place] [address] Result Comment: The [place] Diabetes Association (ADA) provides guidance for cutoff values for fasting glucose and random glucose. The ADA defines fasting as no caloric intake for at least 8 hours. Fasting plasma glucose results between 100 to 125 mg/dL indicate increased risk for diabetes (prediabetes). Fasting plasma glucose results greater than or equal to 126 mg/dL meet the criteria for diagnosis of diabetes. In the absence of unequivocal hyperglycemia, results should be confirmed by repeat testing. In a patient with classic symptoms of hyperglycemia or hyperglycemic crisis, random plasma glucose results greater than or equal to 200 mg/dL meet the criteria for diagnosis of diabetes. Reference: Standards of Medical Care in Diabetes 2016, [employer] Diabetes Association. Diabetes Care. 2016.39(Suppl 1). Performed By: #### 2 4323-8, 2731-05 #### [facility] CLIA [id number] [address] [address] [place] Potassium [Moles/Vol] 4.4 mmol/L Normal 3.7-5.1 [facility] Comment on above: Order Comment: Speci men Type: BLOOD SPECIMEN Ordering Facility: [facility] Address: [facility] [place] [address] Performed By: #### 2 4323-8, 8 #### [facility] CLIA [id number] [address] [place], [place] [address] [place] Protein [Mass/Vol] 6.7 g/dL Normal 6.3-8.[address] [facility] Comment on above: Order Comment: Speci men Type: BLOOD SPECIMEN Ordering Facility: [facility] Address: [facility] [place] [address] Performed By: #### 2 4323-8, 8 #### [facility] CLIA [id number] [address] [place], [place] [address] [place] Sodium [Moles/Vol] 137 mmol/L Normal 136-[address] [facility] Comment on above: Order Comment: Speci men Type: BLOOD SPECIMEN Ordering Facility: [facility] Address: [facility] [place] [address] Performed By: #### 2 4323-8, 8 #### [facility] CLIA [id number] [address] [place], [place] [address] [place] Urea nitrogen [Mass/Vol] 16 mg/dL Normal 7-21 [facility] Comment on above: Order Comment: Speci men Type: BLOOD SPECIMEN Ordering Facility: [facility] Address: [facility] [place] [address] Performed By: #### 2 4323-8, 8 #### [facility] CLIA [id number] [address] [place], [place] [address] [place] [facility]20 25 Free T3 [Mass/Vol] 2.1 pg/mL Low 2.3-4.[address] [facility] Comment on above: Order Comment: Specromina oneill Type: BLOOD SPECIMEN Ordering Facility: [facility] Address: [facility] [place] [address] Performed By: #### 2 4323-8, 273-8 #### [facility] CLIA [id number] [address] [place] [address] STATES OF [facility] T4 Free SerPl-mCncon 025 Free T4 [Mass/Vol] 1.5 ng/dL Normal 0.9-1.[address] [facility] Comment on above: Order Comment: Lenka oneill Type: BLOOD SPECIMEN Ordering Facility: [facility] Address: [address] [place] [address] [place] [address] Performed By: #### 2 4323-8, 273-8 #### [facility] CLIA [id number] [address] [place] [address] [place] TSH SerPl-aCncon 02-23-2025 TSH Qn 1.090 m[IU]/L Normal 0.270-4.20 0 [facility] Comment on above: Order Comment: Lenka oneill Type: BLOOD SPECIMEN Ordering Facility: [facility] Address: [facility] [place] [address] Performed By: #### 2 4323-8, 273-8 #### [facility] CLIA [id number] [address] [place] [address] [place] CNOVon 02-17-2025 CNOV Office Visit (ORMDNA ) -------- NELLA BENÍTEZ ([id number]) 1950 F Date Time Provider Department 02/17/25 11:45 AM KATHERINE PHAM During your visit today, we recorded the following information about you: Katherine Pham DO 02/22/2025 12:35 PM Signed Follow Up Visit Chief Complaint Nella is a 74-year-old female with a history of arthritis, presenting for bilateral wrist pain. Patient presents with: Left Wrist - Pain, Established Patient, Follow Up Right Wrist - Pain, Established Patient, Follow Up History of Present Illness PAIN EVALUATION 02/10/2025 1131 02/17/2025 1145 Pain Location: Wrist-Right -- bilateral wrist, right worse than left Description: Aching;Burning;Sharp Aching;Burning;Sharp Frequency: Continuous Continuous Intervention/Comfort measure: Cold;Splinting Cold;Support surface;Medication voltaren, biofreeze Comments: -- wearing hand/wrist brace HPI: Nella Benítez is a 74 year old female for a follow up visit bilateral right worse than left wrist pain. Pain history is noted as above. Is there any overall improvement in your condition? No Any new injury, since being seen last: No Bilateral Wrist Pain: - Chronic bilateral wrist pain, worse on the right side. - Pain localized to the wrist joints. - Previous corticosteroid injection in the wrist approximately two years ago. - Recent epidural injection for back pain one month ago. - History of lumbar spine fractures. - Currently on Prolia for osteoporosis management. REVIEW OF SYMPTOMS: Patient did not have, and does not currently have, any weight loss, malaise, fever, chills, headache, chest pain, chest pressure, palpitations, cough, shortness of breath, orthopnea, paroxsymal nocturnal dyspnea, nausea, vomiting, diarrhea, constipation, melena, hematochezia, urinary difficulties, prolonged bleeding, easily bruising, heat or cold intolerance, new onset joint pain or swelling, new onset extremity weakness or numbness, new onset auditory or visual disturbances, lightheadedness, dizziness, partial loss of consciousness or full loss of consciousness. Musculoskeletal: (+) right wrist pain, (+) left wrist pain Current Outpatient Medications Medication Sig busPIRone (BUSPAR) 15 mg tablet Take 1.5 tablets by mouth two times a day. ALPRAZolam (XANAX) 0.5 mg tablet Take 1 tablet by mouth two times a day as needed for up to 60 days. For Anxiety and SOB related to throat/laryngospasm as directed tiZANidine (ZANAFLEX) 4 mg tablet Take 1 tablet by mouth two times a day as needed. levothyroxine (SYNTHROID) 50 mcg tablet Take 1 tablet by mouth once daily. lisinopril 2.5 mg tablet Take 1 tablet by mouth once daily. (Cardiology filling) pantoprazole DR (PROTONIX) 40 mg tablet Take 1 tablet by mouth two times a day. As directed buPROPion SR (WELLBUTRIN SR) 150 mg 12 hr tablet Take 1 tablet by mouth once daily. sucralfate (CARAFATE) 1 gram tablet Take 1 tablet by mouth four times daily. As directed for flare ups. May dissolve in 1 to 2 teaspoons of water then swallow. Cholecalciferol, Vitamin D3, 125 mcg (5,000 unit) cap Hold for the month of August then resume once weekly in September. citalopram (CELEXA) 40 mg tablet Take 1 tablet by mouth once daily. meloxicam (MOBIC) 15 mg tablet Take 1 tablet by mouth once daily. Take with food. acetaminophen (TYLENOL 8 HOUR) 650 mg CR tablet Take 2 tablets by mouth every 8 hours as needed for pain. (try this one) calcium carbonate 600 mg-cholecalciferol 200 units (CALCIUM 600 + D,3,) 600 mg(1,500mg) -200 unit tab Take 1 tablet by mouth twice daily. Calcium viactive chewable fexofenadine (ALVINA) 180 mg tablet Take 180 mg by mouth once daily. No current facility-administered medications for this visit. Physical Exam Vitals: There were no vitals taken for this visit. Psych: Pleasant, good affect and mood General Appearance: Well appearing, alert, in no acute distress, well-hydrated, well nourished.. Skin: Skin color, texture, turgor normal, no suspicious rashes or lesions. Peripheral Pulses: Normal. Neurologic: Gait normal. Reflexes normal and symmetric. Sensation grossly intact.. Lymph Nodes: No cervical lymphadenopathy, No supraclavicular lymphadenopathy, No axillary lymphadenopathy., and No inguinal lymphadenopathy.. Respiratory: No recent pulmonary infection, hemoptysis, chronic cough, or shortness of breath at rest Rheumatologic: Joint deformities: wrist pain Right Hand Exam Tenderness Right hand tenderness location: pos cmc grind. Range of Motion The patient has normal right wrist ROM. Wrist Extension: normal Flexion: normal Pronation: normal Supination: normal Muscle Strength The patient has normal right wrist strength. 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 Normal [facility] Medium Joint Arthro/Inj: ellis ateral radiocarpalson 02-17-2025 Katherine Pham ie, DO 02/22/2025 12:35 PM Medium Joint Arthro/Inj: bilateral radiocarpals 02/17/2025 12:32 PM The procedure site was prepped in the usual sterile fashion. Medications (Right): 10 mg triamcinolone acetonide 10 mg/mL Anesthetics (Right): 2 mL BUPivacaine (PF) 0.5 % (5 mg/mL) Outcome: tolerated well, no immediate complications Post-injection instructions were reviewed with the patient and the patient voiced understanding of these instructions. Informed Consent Consent Obtained: Verbal [place] Protocol A moment to CARE was completed. SIGN IN Personnel directly involved with the procedure wore the appropriate PPE. Special Equipment: N/A Patient/Surrogate Stated/Verified: Patient name, Date of , Relevant allergies and Intended procedure TIME OUT Relevant labs, photos, and/or imaging studies have been reviewed. Intended patient and procedure match source documents. Consent documented and matches the intended procedure. Correct side/site marked and visible. Medications required for procedure verified. Fire risk assessed and interventions discussed. No implant(s) inserted. SIGN OUT No specimen collected. All instruments, equipment, possible retained foreign bodies accounted for. [facility] NELLA BENÍTEZ ([id number]) 1950 F Date Time Provider Department 02/09/25 EUNICE JOE INTMWS During your visit today, we recorded the following information about you: Stacy FloreshFRANCIS 02/09/2025 1:27 PM Signed Elicia from Dr Georges Michele Dentist office calling asking for copy of patient last office note with medication list to be faxed to [phone]. Printed and faxed as requested. Allergies As of Date: 02/09/2025 Noted Allergy Reaction LATEX 04/06/2007 2 - Rash 9 - Itching ACTONEL (RISEDRONATE SODIUM) 10/30/2005 8 - GI Upset FOSAMAX (ALENDRONATE SODIUM) 10/30/2005 8 - GI Upset Date Reviewed: 12/22/2024 Reviewed by: Tammy Marcelo MA - Fully Assessed Reason for Visit: Dr Georges Michele Dentist office requesting records [Other] Prescriptions as of 02/09/2025 - busPIRone (BUSPAR) 15 mg tablet Take 1.5 tablets by mouth two times a day. - ALPRAZolam (XANAX) 0.5 mg tablet Take 1 tablet by mouth two times a day as needed for up to 60 days. For Anxiety and SOB related to throat/laryngospasm as directed - tiZANidine (ZANAFLEX) 4 mg tablet Take 1 tablet by mouth two times a day as needed. - levothyroxine (SYNTHROID) 50 mcg tablet Take 1 tablet by mouth once daily. - lisinopril 2.5 mg tablet Take 1 tablet by mouth once daily. (Cardiology filling) - pantoprazole DR (PROTONIX) 40 mg tablet Take 1 tablet by mouth two times a day. As directed - buPROPion SR (WELLBUTRIN SR) 150 mg 12 hr tablet Take 1 tablet by mouth once daily. - sucralfate (CARAFATE) 1 gram tablet Take 1 tablet by mouth four times daily. As directed for flare ups. May dissolve in 1 to 2 teaspoons of water then swallow. - Cholecalciferol, Vitamin D3, 125 mcg (5,000 unit) cap Hold for the month of August then resume once weekly in September. - citalopram (CELEXA) 40 mg tablet Take 1 tablet by mouth once daily. - meloxicam (MOBIC) 15 mg tablet Take 1 tablet by mouth once daily. Take with food. - acetaminophen (TYLENOL 8 HOUR) 650 mg CR tablet Take 2 tablets by mouth every 8 hours as needed for pain. (try this one) - calcium carbonate 600 mg-cholecalciferol 200 units (CALCIUM 600 + D,3,) 600 mg(1,500mg) -200 unit tab Take 1 tablet by mouth twice daily. Calcium viactive chewable - fexofenadine (ALVINA) 180 mg tablet Take 180 mg by mouth once daily. 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 Diarrhea [R19.7] 01/02/2010 Diverticulosis of Colon (without Mention of Hem*01/02/2010 Internal Hemorrhoids without Mention of Complic*01/02/2010 External Hemorrhoids without Mention of Complic*01/02/2010 SI (sacroiliac) joint dysfunction [M53.3] 11/03/2011 Hypothyroidism [E03.9] 08/31/2013 Plantar fasciitis of left foot [M72.2] 09/04/2014 Anxiety [F41.9] T12 compression fracture (HCC) [S22.080A] 06/08/2018 Cervical disc disorder of mid-cervical region [*06/08/2018 Spinal stenosis, lumbar region, without neuroge*06/08/2018 Essential hypertension [I10] 09/14/2021 Stage 3a chronic kidney disease (HCC) [N18.31] 02/04/2023 Paroxysmal SVT (supraventricular tachycardia) (*02/04/2023 CHINTAN (obstructive sleep apnea) [G47.33] 03/25/2024 Encounter Status:Closed by MAY FLORES on 5/1/25 Normal [facility] Cardiology Visit Reporton Cardiology Visit Report [facility] [address] [place], [place] [address] OFFICE VISIT Date of Service: 02/02/25 MR#: [id number] Acct: [id number] Name: NELLA BENÍTEZ Rep #: [id number] : 1950 Provider: JOSE Rosen Age/Sex: 74/F Location: [facility] Status: Signed HPI HPI History of Present Illness Details: Nella Benítez is a 74-year-old female who presents for a follow-up visit. She is a lady with a history of supraventricular tachycardia of a narrow complex type which terminated with adenosine. She was sent to the bottom scrubber and underwent an EP study which demonstrated normal sinus, AV node, and infranodal function. There was no evidence of dual AV node physiology or an accessory pathway. There was however an inducible atrial tachycardia noted which was ablated. Her Toprol was discontinued. She does also have a hx of hypertension. She has had atypical CP since she negative stress test. Stress test was in 2023 at an outside facility. Pt notes that her fatigue and SOB is worse than before. She thinks that this is related to her back pain. She is seeing pain management for this. She does not have any chest pain. She does at times have positional dizziness. She have numbness in her hands. 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 Required: No Is patient in pain?: No Allergies latex Allergy (Verified 02/02/25 11:14) COUGHING AND SORE THROAT Medications ???Medication ???Instructions ???Recorded ???Confirmed ???Type citalopram 40 mg tablet 40 mg PO QHS depression 09/24/16 0 02/02/25 History levothyroxine 50 mcg tablet 50 mcg PO DAILY thyroid 09/24/16 0 02/02/25 History pantoprazole 40 mg tablet,delayed 40 mg PO BID gerd 09/24/16 History release tizanidine 4 mg tablet 4 mg PO QHS muscle spasms 09/28/18 02/02/25 History cholecalciferol (vitamin D3) 125 125 mcg PO DAILY 01/31/21 02/02/25 History mcg (5,000 unit) tablet meloxicam 15 mg tablet 15 mg PO DAILY 11/14/22 02/02/25 H istory bupropion HCl 150 mg tablet,12 hr 150 mg PO BID 04/01/23 02/02/25 H istory sustained-release fexofenadine 180 mg tablet 180 mg PO DAILY 01/06/24 02/02/25 History (Allergy Relief (fexofenadine)) lisinopril 2.5 mg tablet 2.5 mg PO DAILY #90 tabs 04/07/24 02/02/25 Rx acetaminophen 650 mg 1,300 mg PO Q12H PRN Pain 06/10/24 02/02/25 History tablet,extended release denosumab 60 mg/mL subcutaneous 60 mg subcut [id number] #1 mL 02/02/25 Rx syringe (Prolia) acetaminophen 300 mg-codeine 30 mg 1 tab PO BID PRN 02/02/25 History tablet alprazolam 0.5 mg tablet 0.5 mg PO BID PRN 02/02/25 5 History sucralfate 100 mg/mL oral 10 ml PO BID PRN 02/02/25 02/02/25 History suspension (Carafate) Ejection fraction %: 75 Have you fallen in the past year?: No PFSH Medical History Vitamin D deficiency History of Clostridium difficile infection Cancer Thyroid disease Osteoarthritis High cholesterol Injury of back History of hiatal hernia History of IBS Non-smoker Leg cramps History of echocardiogram History of stress test Cardiology follow-up encounter Medullary sponge kidney Internal hemorrhoids Fibromyalgia GERD (gastroesophageal reflux disease) Dysmetabolic syndrome Diverticulosis Cervical disc herniation Anxiety Allergic rhinitis Bloating Epigastric pain Fracture of talus of left ankle, closed Left ankle strain Acute right flank pain Closed fracture of left proximal humerus History of cataract History of gastroesophageal reflux (GERD) Sacro-iliac pain Paroxysmal SVT (supraventricular tachycardia) Essential (primary) hypertension Depression Hypothyroidism Hyperlipidemia Surgical History History of bladder surgery History of stem cell transplant History of left oophorectomy History of radiofrequency ablation procedure for cardiac arrhythmia (08/07/21) History of lumbar laminectomy (09/2019) History of total left hip arthroplasty History of cataract extraction History of bunionectomy History of bladder suspension procedure History of appendectomy History of hysterectomy History of right oophorectomy Family History Father , Age 43 Hodgkins disease Sister Osteoporosis Mother Myocardial infarction Other Hypertension Social History household memb (more content not included)... [facility] Non-Clinical Counselor Cytology Reporton Non-Clinical Counselor Cytology Report . Pathology Reports Accession: Collected Date/Time: Received Date/Time: Pathologist: [id number] 01/20/2025 12:04 EDT 01/23/2025 09:42 EDT MD SARAH WHITE Non-Clinical Counselor Cytology Report CLINICAL INFORMATION: Bladder Cancer DIAGNOSTIC CATEGORY: NEGATIVE FOR HIGH GRADE UROTHELIAL CARCINOMA. SPECIMEN: Urine GROSS DESCRIPTION: # of Monolayers: 1 Volume (ml) 60 Color: fixed clear yellow SUGGESTION/EDUCATIONAL NOTES: This sample was evaluated using standardized diagnostic criteria published in the '[employer] System for Reporting Urinary Cytology '(TPS), Second edition, 2021. The following Risk of High-grade urothelial carcinoma is based on published data from TPS. Individual institutional rates may vary. TPS Cytology Diagnostic category Risk of high-grade malignancy Non diagnostic 0-16% Negative for High grade urothelial carcinoma 8-24% Low grade urothelial neoplasm 0-44% Atypical Urothelial cells 24-53% Suspicious for High grade urothelial carcinoma 59-94% Malignant- High grade urothelial carcinoma 76-100% Verified by Pathology Report verified by [facility] Screened by: NIKKI BARBOSA Electronically signed by SARAH WHITE MD Sign-Out Date: 01/24/2025 10:25 Performing Lab: [facility], [facility] [address] [place] [address] Pathology Dept Disclaimer If ancillary studies were utilized, the following Laboratory Developed Test (LDT) disclaimer will apply: Under CLIA requirements, [facility] Pathology Laboratory is qualified to perform high complexity testing. For all ancillary stains, positive and negative controls stain appropriately. Performance characteristics of immunohistochemical and chromogenic in-situ hybridization tests have been determined by [facility] Pathology Laboratory. These tests are used for clinical purposes, They should not be regarded as investigational or for research. Normal [facility] Office Visit Reporton 2024 Office Visit Report [facility] [address] [place] [address] OFFICE VISIT Date of Service: 01/19/25 MR#: [id number] Acct: [id number] Patient: NELLA BENÍTEZ Rep #: [id number] : 1950 Provider: Michael Houston Age/Sex: 74/F Location: [facility] Status: Signed Intake Vital Signs 09/15/24 10:53 Height 4 ft 11 in Weight: 149 lb 4 oz BMI 30.1 BP 142/72 H Blood Pressure Location Lt brachial Position Sitting Respiration 16 Pulse 78 Pulse Source NIBP Temp 97.8 F Temp Source Oral Pulse Oximetry (%) 97 Oxygen Delivery Method room air Intake Visit Reasons: Prolia - B B Chief Complaint: MRI Review Allergies latex Allergy (Verified 09/22/24 13:03) COUGHING AND SORE THROAT Have you fallen in the past year?: No Office Procedures Injections Procedure performed by: Emeka Aceves Lot number: [id number] Spot Welder Line: [employer] date: 04/10/27 Dose of injection: 1 mL Site of injection: Sub-Q Medication Given: Yes Is this a patient provided medication?: No Office Meds Prolia 60 mg/mL subcutaneous syringe Performing Provider: Justino Gomez MD Performing Location: [facility] Administered by: Emeka Aceves RN on 01/19/25 10:12 Dose Route Admin Location Dispensed Lot Number Expiration Date ND Man ufacturer 60 mg subcut Left Arm 1 mL [id number] 04/10/27 [id number] [employer] Assessment and Plan Assessment and Plan (1) Osteoporosis: Status: Chronic Qualifiers: Osteoporosis type: unspecified Presence of current pathological fracture: with current pathological fracture Encounter type: sequela Qualified Code(s): M80.00XS - Age-related osteoporosis with current pathological fracture, unspecified site, sequela Orders: Orders Prolia Injection Today M81.0 - Age-related osteoporosis without current pathological fracture Clinical Quality Measures Falls Risk Screening/Assistive Devices Have you fallen in the past year?: No 01/19/25 1127 Date Justino Farris Signature: Date (if applicable) CC: Normal [facility] 12-22-2024 [facility] Office Visit (UCWSTR ) -------- NELLA BENÍTEZ ([id number]) 1950 F Date Time Provider Department 12/22/24 11:45 AM KIKA THOMPSON [facility] During your visit today, we recorded the following information about you: Temperature Pulse Respiration Blood pressure 98.7 degrees 89/minute 18/minute 118/93 Weight 66.8 kg Kika Thompson APRN.MASTER [employer] GLASS TECHNICIAN 12/22/2024 12:24 PM Signed This note was created using NoteWriter. Subjective Nella Benítez is a 74 year old female. 74 year old female with PMH fibromyalgia, HTN, hyperlipidemia, stage 3 CKD, thyroid, osteoporosis presents for illness. Acute onset 8 days +sinus pressure +nasal congestion +sore throat +headache +cough, non productive +SOB +body aches +chills Denies N/V/D Denies CP Denies hemoptysis Denies tobacco usage Has used Coricidin Tylenol The history is provided by the patient. No electrotyper apprentice was used. Sinus Problem This is a new problem. The current episode started 1 to 4 weeks ago. The problem occurs constantly. The problem has been gradually worsening. Associated symptoms include chills, congestion, coughing, fatigue, a fever, headaches and a sore throat. Pertinent negatives include no abdominal pain, anorexia, arthralgias, change in bowel habit, chest pain, diaphoresis, joint swelling, myalgias, nausea, neck pain, numbness, rash, swollen glands, urinary symptoms, vertigo, visual change, vomiting or weakness. Nothing aggravates the symptoms. She has tried nothing for the symptoms. The treatment provided no relief. 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 Toth) VAGINAL HYSTERECTOMY UTERUS 250 GM/< vaginal with bilateral oophorectomy ALLERGIES Latex, Actonel [Risedronate Sodium], and Fosamax [Alendronate Sodium] MEDICATIONS doxycycline (VIBRA-TABS) 100 mg tablet Take 1 tablet by mouth two times a day for 7 days. levothyroxine (SYNTHROID) 50 mcg tablet Take 1 tablet by mouth once daily. lisinopril 2.5 mg tablet Take 1 tablet by mouth once daily. (Cardiology filling) pantoprazole DR (PROTONIX) 40 mg tablet Take 1 tablet by mouth two times a day. As directed baclofen 10 mg tablet Take 1 tablet by mouth two times a day as needed. ALPRAZolam (XANAX) 0.5 mg tablet Take 1 tablet by mouth two times a day as needed for up to 60 days. For Anxiety and SOB related to throat/laryngospasm as directed buPROPion SR (WELLBUTRIN SR) 150 mg 12 hr tablet Take 1 tablet by mouth once daily. busPIRone (BUSPAR) 15 mg tablet Take 1.5 tablets by mouth two times a day. sucralfate (CARAFATE) 1 gram tablet Take 1 tablet by mouth four times daily. As directed for flare ups. May dissolve in 1 to 2 teaspoons of water then swallow. Cholecalciferol, Vitamin D3, 125 mcg (5,000 unit) cap Hold for the month of August then resume once weekly in September. citalopram (CELEXA) 40 mg tablet Take 1 tablet by mouth once daily. meloxicam (MOBIC) 15 mg tablet Take 1 tablet by mouth once daily. Take with food. acetaminophen (TYLENOL 8 HOUR) 650 mg CR tablet Take 2 tablets by mouth every 8 hours as needed for pain. (try this one) calcium carbonate 600 mg-cholecalciferol 200 units (CALCIUM 600 + D,3,) 600 mg(1,500mg) -200 unit tab Take 1 tablet by mouth twice daily. Calcium viactive chewable fexofenadine (ALVINA) 180 mg tablet Take 180 mg by mouth once daily. FAMILY HISTORY Problem Relation Age of Onset other (hodgkins [Other]) Father Osteoporosis Mother Asthma Sister Asthma Sister Asthma Son Youngest Ischemic Heart Disease Mother 02/28/13, age 84. Social History Tobacco Use Smoking status: Never Smokeless tobacco: Never Tobacco comments: Father smoked in childhood home. Spouse non-smo (more content not included)... Normal [facility] XR CHEST 2V FRONTAL/LATon XR CHEST 2V FRONTAL/LAT * * *Final Repor t* * * DATE OF EXAM: Dec 22 2024 12:12PM [id number] - XR CHEST 2V FRONTAL/LAT / PROCEDURE REASON: Acute cough * * * * Physician Interpretation * * * * EXAMINATION: CHEST RADIOGRAPH (2 VIEW FRONTAL and LATERAL) CLINICAL HISTORY: Acute cough MQ: XC2_6 EXAM DATE/TIME: 12/22/2024 12:12 PM COMPARISON: Chest radiograph(s) dated 05/23/2014 CT chest 04/11/2019 RESULT: Lines, tubes, and devices: None. Lungs and pleura: No consolidation. No lung mass. No pleural effusion. No pneumothorax. Stable linear atelectasis or fibrosis at the lung bases Cardiomediastinal silhouette: Normal cardiomediastinal silhouette. Bones and soft tissues: Significant scoliosis. Degenerative change. Lower thoracic and upper vertebral body vertebroplasty. Large retrocardiac hiatal hernia. Elevation of the right hemidiaphragm. Multi vertebral compression deformities. Grossly stable IMPRESSION: No acute radiographic abnormality. Significant scoliosis. Guest Attendant: [facility] Transcribe Date/Time: Dec 22 2024 12:15P Dictated by : EVENS JOHNSTON MD This examination was interpreted and the report reviewed and electronically signed by: EVENS JOHNSTON MD on Dec 22 2024 12:19PM EST [id number] Normal [facility] XR Chest PA and Lateralon IMPRESSION: No acute radiographic abnormality. Significant scoliosis. Guest Attendant: [facility] Transcribe Date/Time: Dec 22 2024 12:15P Dictated by : EVENS JOHNSTON MD This examination was interpreted and the report reviewed and electronically signed by: EVENS JOHNSTON MD on Dec 22 2024 12:19PM [facility] DIVISION OF RADIOLOGY * * *Final Report* * * DATE OF EXAM: Dec 22 2024 12:12PM [id number] - XR CHEST 2V FRONTAL/LAT / PROCEDURE REASON: Acute cough * * * * Physician Interpretation * * * * EXAMINATION: CHEST RADIOGRAPH (2 VIEW FRONTAL & LATERAL) CLINICAL HISTORY: Acute cough MQ: XC2_6 EXAM DATE/TIME: 12/22/2024 12:12 PM COMPARISON: Chest radiograph(s) dated 05/23/2014 CT chest 04/11/2019 RESULT: Lines, tubes, and devices: None. Lungs and pleura: No consolidation. No lung mass. No pleural effusion. No pneumothorax. Stable linear atelectasis or fibrosis at the lung bases Cardiomediastinal silhouette: Normal cardiomediastinal silhouette. Bones and soft tissues: Significant scoliosis. Degenerative change. Lower thoracic and upper vertebral body vertebroplasty. Large retrocardiac hiatal hernia. Elevation of the right hemidiaphragm. Multi vertebral compression deformities. Grossly stable DIVISION OF RADIOLOGY Provider, Sara Jin - 12/22/2024 * * *Final Report* * * DATE OF EXAM: Dec 22 2024 12:12PM [id number] - XR CHEST 2V FRONTAL/LAT / PROCEDURE REASON: Acute cough * * * * Physician Interpretation * * * * EXAMINATION: CHEST RADIOGRAPH (2 VIEW FRONTAL & LATERAL) CLINICAL HISTORY: Acute cough MQ: XC2_6 EXAM DATE/TIME: 12/22/2024 12:12 PM COMPARISON: Chest radiograph(s) dated 05/23/2014 CT chest 04/11/2019 RESULT: Lines, tubes, and devices: None. Lungs and pleura: No consolidation. No lung mass. No pleural effusion. No pneumothorax. Stable linear atelectasis or fibrosis at the lung bases Cardiomediastinal silhouette: Normal cardiomediastinal silhouette. Bones and soft tissues: Significant scoliosis. Degenerative change. Lower thoracic and upper vertebral body vertebroplasty. Large retrocardiac hiatal hernia. Elevation of the right hemidiaphragm. Multi vertebral compression deformities. Grossly stable IMPRESSION IMPRESSION: No acute radiographic abnormality. Significant scoliosis. Guest Attendant: [facility] Transcribe Date/Time: Dec 22 2024 12:15P Dictated by : EVENS JOHNSTON MD This examination was interpreted and the report reviewed and electronically signed by: EVENS JOHNSTON MD on Dec 22 2024 12:19PM EST [facility] Radiology Study observation (narrative) Goldie Guan XR Chest PA and LateralOrder ed By: [facility] Provider on 12-22-2024 [facility] CNOVon 12-14-2024 CNOV Office Visit (INTMWS ) -------- NELLA BENÍTEZ ([id number]) 1950 F Date Time Provider Department 12/14/24 10:00 AM DENISHA, ABNER INTMWS During your visit today, we recorded the following information about you: Temperature Pulse Blood pressure Weight 98.2 degrees 85/minute 136/84 66.8 kg Abner Denny APRN.ISABELLA 12/14/2024 10:18 AM Signed SUBJECTIVE Nella Benítez is a 74 year old female here today for acute concern. Chief Complaint Patient presents with: Pain: worst of the pain is hands, shoulder, hips and knees. Cough: did start with a dry cough this am. Has a tickle in her throat slight headache HPI Nella Benítez is a 74 year old female. She is an established patient of Eunice Joe MD. Here today for issues with joint pain in the joints of her hands, shoulders, hips and knees. She has had chronic myalgias and arthralgias. Has had toradol in the past and it was helpful. Would like a toradol injection. Joints are without redness and no increased warmth. No fever or chills or nausea or vomiting. Her medications were reviewed today and her list is now up to date. Medications Current Outpatient Medications Medication Sig levothyroxine (SYNTHROID) 50 mcg tablet Take 1 tablet by mouth once daily. lisinopril 2.5 mg tablet Take 1 tablet by mouth once daily. (Cardiology filling) pantoprazole DR (PROTONIX) 40 mg tablet Take 1 tablet by mouth two times a day. As directed baclofen 10 mg tablet Take 1 tablet by mouth two times a day as needed. ALPRAZolam (XANAX) 0.5 mg tablet Take 1 tablet by mouth two times a day as needed for up to 60 days. For Anxiety and SOB related to throat/laryngospasm as directed buPROPion SR (WELLBUTRIN SR) 150 mg 12 hr tablet Take 1 tablet by mouth once daily. busPIRone (BUSPAR) 15 mg tablet Take 1.5 tablets by mouth two times a day. sucralfate (CARAFATE) 1 gram tablet Take 1 tablet by mouth four times daily. As directed for flare ups. May dissolve in 1 to 2 teaspoons of water then swallow. Cholecalciferol, Vitamin D3, 125 mcg (5,000 unit) cap Hold for the month of August then resume once weekly in September. citalopram (CELEXA) 40 mg tablet Take 1 tablet by mouth once daily. meloxicam (MOBIC) 15 mg tablet Take 1 tablet by mouth once daily. Take with food. acetaminophen (TYLENOL 8 HOUR) 650 mg CR tablet Take 2 tablets by mouth every 8 hours as needed for pain. (try this one) calcium carbonate 600 mg-cholecalciferol 200 units (CALCIUM 600 + D,3,) 600 mg(1,500mg) -200 unit tab Take 1 tablet by mouth twice daily. Calcium viactive chewable fexofenadine (ALVINA) 180 mg tablet Take 180 mg by mouth once daily. [START ON 12/15/2024] keTORolac (TORADOL) 10 mg tablet Take 1 tablet by mouth every 6 hours as needed for pain for up to 4 days. Hold Meloxicam while taking Toradol. Patient should start on December 15, 2024. Current Facility-Administered Medications Medication Dose Route Frequency keTORolac 30 mg injection (Toradol) 30 mg INTRAMUSCULAR ONCE (AMB - Up to 30 Days) ALLERGIES Allergen Reactions Latex Rash, Itching Actonel [Risedronat* GI Upset Fosamax [Alendronat* GI Upset ACTIVE PROBLEM LIST Chintan (Obstructive Sleep Apnea) - 03/25/2024 Comment: CHARMAINE Mims Pap being followed by Neurology Larisa Dukes Stage 3a Chronic Kidney Disease ([facility]) - 02/04/2023 Paroxysmal Svt (Supraventricular Tachycardia) ([facility]) - 02/04/2023 Essential Hypertension - 09/14/2021 Comment: Higher than usual today--attributed to persistent severe pain from comrpression fractures. 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 Hypothyroidism - 08/31/2013 Si (Sacroiliac) Joint Dysfunction - 11/03/2011 Diarrhea - 01/02/2010 Diverticulosis of Colon (Without Mention of Hemorrhage) - 01/02/2010 Internal Hemorrhoids Without Mention of Complication - 01/02/2010 External Hemorrhoids Without Mention of Complication - 01/02/2010 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 Spouse non-smoker. Vaping Use Vaping status: Never Used Substance Use Topics Alcohol use: Yes Comment: Occasional, on (more content not included)... Normal [facility] CNOVon 12-03-2024 CNOV Office Visit (INTMWS ) -------- NELLA BENÍTEZ ([id number]) 1950 F Date Time Provider Department 12/03/24 10:40 AM EUNICE JOE INTMWS During your visit today, we recorded the following information about you: Pulse Respiration Blood pressure Weight 71/minute 16/minute 140/76 67 kg Eunice Joe MD 12/03/2024 4:20 PM Signed This note was created using [employer]. Subjective Nella Benítez is a 74 year old female. Patient presents with: 4 month f/u SUBJECTIVE: Nella Benítez is a 74 year old year old lady here today for 4 month follow up appointment for review of medical conditions. Nella Benítez is a 74-year-old female with a history of medullary sponge kidney, osteoporosis, and chronic pain, presenting for a 4-month follow-up visit. Nella reports feeling "achy all over" and inquires about alternative medications to meloxicam for joint pain and swelling in her knee. She is currently taking tizanidine at night and occasionally during the day. She also reports post-nasal drip, which is being managed with Flonase. She is currently taking multiple medications, including buspirone, alprazolam, citalopram, thyroid medication, lisinopril, Protonix, sucralfate, and tizanidine. She mentions a recent issue with her buspirone prescription, where she was told she had to refill it by November 05. She is also taking vitamin D 5,000 IU once a week, which she reports has made a difference in her vitamin D levels. She is also on Prolia for osteoporosis, prescribed by Dr. Gomez. She reports drinking about 48 ounces of water daily and consuming other fluids such as soup, milk, and juice. She denies any symptoms of hypoglycemia, such as feeling shaky. She also denies any black or tarry stools, blood in the stools, or blood in the urine. Nella reports that lifting even a coffee pot causes significant back pain. She has a history of a pinched nerve and has been advised against surgery by Dr. Sahu due to her osteoporosis. She is currently seeing Dr. Gomez for endocrinology and is on Prolia. She also reports a curvature in her thoracic spine, which causes muscle tightness and discomfort when wearing pants. She practices isometric exercises in bed every morning and evening to alleviate some of the discomfort. She also mentions a recent dental issue and a history of COVID-19 and pneumonia last year in April and May. 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 Nontoxic multinodular goiter CHINTAN (obstructive sleep apnea) 03/25/2024 Persistent disorder of initiating or maintaining sleep 06/30/2005 Senile osteoporosis Current Outpatient Medications Medication Sig ALPRAZolam (XANAX) 0.5 mg tablet Take 1 tablet by mouth two times a day as needed for up to 60 days. For Anxiety and SOB related to throat/laryngospasm as directed tiZANidine (ZANAFLEX) 4 mg tablet Take 1 tablet by mouth two times a day as needed. buPROPion SR (WELLBUTRIN SR) 150 mg 12 hr tablet Take 1 tablet by mouth once daily. busPIRone (BUSPAR) 15 mg tablet Take 1.5 tablets by mouth two times a day. sucralfate (CARAFATE) 1 gram tablet Take 1 tablet by mouth four times daily. As directed for flare ups. May dissolve in 1 to 2 teaspoons of water then swallow. Cholecalciferol, Vitamin D3, 125 mcg (5,000 unit) cap Hold for the month of August then resume once weekly in September. citalopram (CELEXA) 40 mg tablet Take 1 tablet by mouth once daily. meloxicam (MOBIC) 15 mg tablet Take 1 tablet by mouth once daily. Take with food. acetaminophen (TYLENOL 8 HOUR) 650 mg CR tablet Take 2 tablets by mouth every 8 hours as needed for pain. (try this one) calcium carbonate 600 mg-cholecalciferol 200 units (CALCIUM 600 + D,3,) 600 mg(1,500mg) -200 unit tab Take 1 tablet by mouth twice daily. Calcium viactive chewable fexofenadine (ALVINA) 180 mg tablet Take 180 mg by mouth once daily. levothyroxine (SYNTHROID) 50 mcg tablet Take 1 tablet by mouth once daily. lisinopril 2.5 mg tablet Take 1 tablet by mouth once daily. (Cardiology filling) pantoprazole DR (PROTONIX) 40 mg tablet Take 1 tablet by mouth two times a day. As directed No current facility-administered medications for this visit. Review of Systems Objective BP 140/76 Pulse 71 Resp 16 Wt 67 kg (147 lb 11.3 oz) BMI 29.33 kg/m? Last 5 Encounter Wt Readings: D (more content not included)... Normal [facility] 25(OH)D3 [facility] 2024 25-hydroxyvitamin D3 [Mass/Vol] 62.7 ng/mL Normal 31.0-80.0 [facility] Comment on above: Order Comment: Speci men Type: BLOOD SPECIMENOrdering Facility: [facility] Address: [address] [place] [address] Result Comment: Clas sification of 25 [place] Vitamin D status: Deficiency/Insufficiency: < or = 30 ng/ml. Sufficiency/Optimal Levels: 31-80 ng/mL Toxicity: > 100 ng/mL. Test performed by chemiluminescent immunoassay. Performed By: #### 1 989-3 ####[facility] [id number] [place] [address] [place] CBC panel Auto (Bld)on 11-23 Erythrocyte distribution width (RBC) [Ratio] 14.6 % Normal 11.5-15.0 [facility] Comment on above: Order Comment: Speci men Type: BLOOD SPECIMEN Ordering Facility: [facility] Address: [facility] [place] [address] Performed By: #### 2 432-8, 8 #### [facility] CLIA [id number] [address] [place] [address] [place] Hematocrit (Bld) [Volume fraction] 35.1 % Low 36.0-46.0 [facility] [facility] Comment on above: Order Comment: Speci men Type: BLOOD SPECIMEN Ordering Facility: [facility] Address: [facility] [place] [address] Performed By: #### 2 432-8, 2731-05 #### [facility] CLIA [id number] [address] [place] [address] [place] Hemoglobin (Bld) [Mass/Vol] 10.5 g/dL Low 11.5-15.5 [facility] Comment on above: Order Comment: Speci men Type: BLOOD SPECIMEN Ordering Facility: [facility] Address: [facility] [place] [address] Performed By: #### 2 432-8, 8 #### [facility] CLIA [id number] [address] [place], [place] [address] [place] MCH (RBC) [Entitic mass] 27.4 pg Normal 26.0-34.0 [facility] Comment on above: Order Comment: Speci men Type: BLOOD SPECIMEN Ordering Facility: [facility] Address: [facility] [place] [address] Performed By: #### 2 4323-8, 8 #### [facility] CLIA [id number] [address] [place] [id number] [place] MCHC (RBC) [Mass/Vol] 29.9 g/dL Low 30.5-36.0 [facility] Comment on above: Order Comment: Speci men Type: BLOOD SPECIMEN Ordering Facility: [facility] Address: [address] [place] [address] [place] [address] Performed By: #### 2 4323-8, 273-8 #### [facility] CLIA [id number] [address] [place], [place] [address] [place] MCV (RBC) [Entitic vol] 91.6 fL Normal 80.0-100.0 [facility] Comment on above: Order Comment: Speci men Type: BLOOD SPECIMEN Ordering Facility: [facility] Address: [address] [place] [address] [place] [address] Performed By: #### 2 4323-8, 8 #### [facility] CLIA [id number] [address] [place] [address] [place] Nucleated RBC (Bld) [#/Vol] 10*3/uL Normal <0.01 [facility] Comment on above: Order Comment: Speci men Type: BLOOD SPECIMEN Ordering Facility: [facility] Address: [facility] [place] [address] Performed By: #### 2 4323-8, 8 #### [facility] CLIA [id number] [address] [place] [address] [place] Platelet mean volume (Bld) [Entitic vol] 9.5 fL Normal 9.0-12.7 [facility] Comment on above: Order Comment: Speci men Type: BLOOD SPECIMEN Ordering Facility: [facility] Address: [facility] [place] [address] Performed By: #### 2 4323-8, 273-8 #### [facility] CLIA [id number] [address] [place], [place] [address] [place] Platelets (Bld) [#/Vol] 389 10*3/uL Normal 150-400 [facility] Comment on above: Order Comment: Speci men Type: BLOOD SPECIMEN Ordering Facility: [facility] Address: [address] [place] [address] [place] [address] Performed By: #### 2 4323-8, 273-8 #### [facility] CLIA [id number] [address] [place] [address] [place] RBC (Bld) [#/Vol] 3.83 10*6/uL Low 3.90-5.20 [facility] Comment on above: Order Comment: Speci men Type: BLOOD SPECIMEN Ordering Facility: [facility] Address: [address] [place] [address] [place] [id number] Performed By: #### 2 4323-8, 273-8 #### [facility] CLIA [id number] [address] [place] [address] [place] WBC (Bld) [#/Vol] 6.35 10*3/uL Normal 3.70-11.00 [facility] Comment on above: Order Comment: Speci men Type: BLOOD SPECIMEN Ordering Facility: [facility] Address: [address] [place], [place] [address] Performed By: #### 2 4323-8, 2730-8 #### [facility] CLIA [id number] [address] [place], [place] [address] [place] Comprehensive metabolic 2000 panelon 11-23-2024 Albumin [Mass/Vol] 4.3 g/dL Normal 3.9-4.[address] [facility] Comment on above: Order Comment: Speci men Type: BLOOD SPECIMENOrdering Facility: [facility] Address: [address] [place] [address] Performed By: #### 2 4323-8, 3024-7, 3016-3, 3051-0 ####[facility] [id number] [address] [address] [place] ALP [Catalytic activity/Vol] 55 U/L Normal 34-123 [facility] Comment on above: Order Comment: Speci men Type: BLOOD SPECIMENOrdering Facility: [facility] Address: [address] [place] [address] Performed By: #### 2 4323-8, 3024-7, 3016-3, 3051-0 ####[facility] [id number] [place] [address] [place] ALT [Catalytic activity/Vol] 11 U/L Normal 7-38 [facility] Comment on above: Order Comment: Speci men Type: BLOOD SPECIMENOrdering Facility: [facility] Address: [address] [place] [address] Performed By: #### 2 4323-8, 3024-7, 3016-3, 3051-0 ####[facility] [id number] [place] [address] [place] Anion gap [Moles/Vol] 8 mmol/L Normal 8-15 [facility] Comment on above: Order Comment: Speci men Type: BLOOD SPECIMENOrdering Facility: [facility] Address: [address] [place] [address] Performed By: #### 2 4323-8, 3024-7, 3016-3, 3051-0 ####[facility] [id number] [place] [address] [place] AST [Catalytic activity/Vol] 14 U/L Normal 13-35 [facility] Comment on above: Order Comment: Speci men Type: BLOOD SPECIMENOrdering Facility: [facility] Address: [address] [place] [address] Performed By: #### 2 4323-8, 3024-7, 3016-3, 3051-0 ####[facility] [id number] [place] [address] [place] Bilirubin [Mass/Vol] 0.2 mg/dL Normal 0.2-1.3 [facility] Comment on above: Order Comment: Speci men Type: BLOOD SPECIMENOrdering Facility: [facility] Address: [address] [place] [address] Performed By: #### 2 4323-8, 3024-7, 3016-3, 3051-0 ####[facility] [id number] [place] [address] [place] Calcium [Mass/Vol] 9.2 mg/dL Normal 8.5-10.[address] [facility] Comment on above: Order Comment: Speci men Type: BLOOD SPECIMENOrdering Facility: [facility] Address: [address] [place] [address] Performed By: #### 2 4323-8, 3024-7, 3016-3, 3051-0 ####[facility] [id number] [place] [address] [place] Chloride [Moles/Vol] 105 mmol/L Normal 98-107 [facility] Comment on above: Order Comment: Speci men Type: BLOOD SPECIMENOrdering Facility: [facility] Address: [address] [place] [address] Performed By: #### 2 4323-8, 3024-7, 3016-3, 3051-0 ####[facility] [id number] [place] [address] [place] CO2 [Moles/Vol] 25 mmol/L Normal 22-30 [facility] Comment on above: Order Comment: Speci men Type: BLOOD SPECIMENOrdering Facility: [facility] Address: [address] [place] [address] Performed By: #### 2 4323-8, 3024-7, 3016-3, 3051-0 ####[facility] [id number] [place] [address] [place] Creatinine [Mass/Vol] 1.03 mg/dL High 0.58-0.96 [facility] Comment on above: Order Comment: Lenka oneill Type: BLOOD SPECIMENOrdering Facility: [facility] Address: [address] [place] [address] Performed By: #### 2 4323-8, 3024-7, 3016-3, 3051-0 ####[facility] [id number] [place] [address] [place] Creatinine and Glomerular filtration rate.predicted panel (S/P/Bld) 57 mL/min/1.73m??? Low >=60 [facility] Comment on above: Order Comment: Lenka oneill Type: BLOOD SPECIMENOrdering Facility: [facility] Address: [address] [place] [address] Result Comment: Jessika mated Glomerular Filtration Rate (eGFR) is calculated using the 2020 CKD-EPI creatinine equation. This equation utilizes serum creatinine, sex, and age as parameters. The creatinine assay has traceable calibration to isotope dilution-mass spectrometry. Refer to KDIGO guidelines for clinical interpretation. In patients with unstable renal function, e.g. those with acute kidney injury, the eGFR may not accurately reflect actual GFR. Performed By: #### 2 4323-8, 3024-7, 3016-3, 3051-0 ####[facility] [id number] [place] [address] [place] Glucose [Mass/Vol] 66 mg/dL Low 74-[address] [facility] Comment on above: Order Comment: Lenka oneill Type: BLOOD SPECIMENOrdering Facility: [facility] Address: [address] [place] [address] Result Comment: The [place] Diabetes Association (ADA) provides guidance for cutoff values for fasting glucose and random glucose. The ADA defines fasting as no caloric intake for at least 8 hours. Fasting plasma glucose results between 100 to 125 mg/dL indicate increased risk for diabetes (prediabetes). Fasting plasma glucose results greater than or equal to 126 mg/dL meet the criteria for diagnosis of diabetes. In the absence of unequivocal hyperglycemia, results should be confirmed by repeat testing. In a patient with classic symptoms of hyperglycemia or hyperglycemic crisis, random plasma glucose results greater than or equal to 200 mg/dL meet the criteria for diagnosis of diabetes. Reference: Standards of Medical Care in Diabetes 2016, [employer] Diabetes Association. Diabetes Care. 2016.39(Suppl 1). Performed By: #### 2 4323-8, 3024-7, 3016-3, 3051-0 ####[facility]IA [id number] [address] [address] [place] Potassium [Moles/Vol] 4.5 mmol/L Normal 3.7-5.1 [facility] Comment on above: Order Comment: Speci men Type: BLOOD SPECIMENOrdering Facility: [facility] Address: [address] [place] [address] Performed By: #### 2 4323-8, 3024-7, 3016-3, 3051-0 ####[facility]IA [id number] [place] [address] [place] Protein [Mass/Vol] 6.4 g/dL Normal 6.3-8.[address] [facility] Comment on above: Order Comment: Eduini mai Type: BLOOD SPECIMENOrdering Facility: [facility] Address: [address] [place] [address] Performed By: #### 2 4323-8, 3024-7, 3016-3, 3051-0 ####[facility]IA [id number] [place] [address] [place] Sodium [Moles/Vol] 138 mmol/L Normal 136-[address] [facility] Comment on above: Order Comment: Speci men Type: BLOOD SPECIMENOrdering Facility: [facility] Address: [address] [place] [address] Performed By: #### 2 4323-8, 3024-7, 3016-3, 3051-0 ####[facility]CLIA [id number] [address] [address] [place] Urea nitrogen [Mass/Vol] 13 mg/dL Normal 7-21 [facility] Comment on above: Order Comment: Speci men Type: BLOOD SPECIMENOrdering Facility: [facility] Address: [address] [place] [address] Performed By: #### 2 4323-8, 3024-7, 3016-3, 3051-0 ####[facility]IA [id number] [place] [address] [place] T3Free SerPl-mCncon 11-23-19 25 Free T3 [Mass/Vol] 2.5 pg/mL Normal 2.3-4.[address] [facility] Comment on above: Order Comment: Speci men Type: BLOOD SPECIMENOrdering Facility: [facility] Address: [address] [place] [address] Performed By: #### 2 4323-8, 3024-7, 3016-3, 3051-0 ####[facility] [id number] [place] [address] [place] T4 Free SerPl-mCncon 025 Free T4 [Mass/Vol] 1.4 ng/dL Normal 0.9-1.[address] [facility] Comment on above: Order Comment: Speci men Type: BLOOD SPECIMENOrdering Facility: [facility] Address: [address] [place] [address] Performed By: #### 2 4323-8, 3024-7, 3016-3, 3051-0 ####[facility] [id number] [place] [id number] [place] TSH SerPl-aCncon 11-23-2024 TSH Qn 0.644 m[IU]/L Normal 0.270-4.20 0 [facility] Comment on above: Order Comment: Speci men Type: BLOOD SPECIMENOrdering Facility: [facility] Address: [address] [place] [address] Performed By: #### 2 4323-8, 3024-7, 3016-3, 3051-0 ####[facility]CLIA [id number] [place] [id number] [place] Orthopedic Visit Reporton Orthopedic Visit Report [facility] [address] [place] [address] OFFICE VISIT Date of Service: 09/22/24 MR#: [id number] Acct: [id number] Name: NELLA BENÍTEZ Rep #: [id number] : 1950 Provider: Dr. Dangelo Fierro MD Age/Sex: 74/F Location: [facility] Status: Signed Intake Vital Signs 08/12/24 12:46 09/15/24 10:53 Height 4 ft 11 in 4 ft 11 in Intake Visit Reasons: LUMBAR SPINE Chief Complaint: MRI Review Accompanied by: Self Is patient in pain?: Yes Pain scale (1-10): 5 Allergies latex Allergy (Verified 09/22/24 13:03) COUGHING AND SORE THROAT Medications ???Medication ???Instructions ???Recorded ???Confirmed ???Type citalopram 40 mg tablet 40 mg PO QHS depression 09/24/16 09/22/24 History levothyroxine 50 mcg tablet 50 mcg PO DAILY thyroid 09/24/16 09/22/24 History pantoprazole 40 mg tablet,delayed 40 mg PO BID gerd 09/24/16 09/22/24 History release tizanidine 4 mg tablet 4 mg PO QHS muscle spasms 09/28/18 09/22/24 History cholecalciferol (vitamin D3) 125 125 mcg PO DAILY 01/31/21 09/22/24 History mcg (5,000 unit) tablet meloxicam 15 mg tablet 15 mg PO DAILY 11/14/22 09/22/24 History bupropion HCl 150 mg tablet,12 hr 150 mg PO BID 04/01/23 09/22/24 History sustained-release sucralfate 100 mg/mL oral 10 ml PO BID #1,000 mL 09/07/23 09/22/24 Rx suspension (Carafate) fexofenadine 180 mg tablet 180 mg PO DAILY 01/06/24 09/22/24 History (Allergy Relief (fexofenadine)) lisinopril 2.5 mg tablet 2.5 mg PO DAILY #90 tabs 04/07/24 09/22/24 Rx acetaminophen 650 mg 1,300 mg PO Q12H PRN Pain 06/10/24 09/22/24 History tablet,extended release lorazepam 1 mg tablet (Ativan) 1 mg PO BID PRN anxiety 06/10/24 09/22/24 History denosumab 60 mg/mL subcutaneous 60 mg subcut [id number] #1 mL 07/19/24 09/22/24 Rx syringe (Prolia) oxycodone 5 mg tablet 5 mg PO Q6H PRN pain 3 days #12 08/12/24 09/22/24 Rx tabs oxycodone-acetaminophen 5 mg-325 1 tab PO Q6H PRN PRN pain 7 days 08/31/24 09/22/24 Rx mg tablet #28 TABLETS Have you fallen in the past year?: No PFSH Medical History Vitamin D deficiency History of Clostridium difficile infection Cancer Thyroid disease Osteoarthritis High cholesterol Injury of back History of hiatal hernia History of IBS Non-smoker Leg cramps History of echocardiogram History of stress test Cardiology follow-up encounter Medullary sponge kidney Internal hemorrhoids Fibromyalgia GERD (gastroesophageal reflux disease) Dysmetabolic syndrome Diverticulosis Cervical disc herniation Anxiety Allergic rhinitis Bloating Epigastric pain Fracture of talus of left ankle, closed Left ankle strain Acute right flank pain Closed fracture of left proximal humerus History of cataract History of gastroesophageal reflux (GERD) Sacro-iliac pain Paroxysmal SVT (supraventricular tachycardia) Essential (primary) hypertension Depression Hypothyroidism Hyperlipidemia Surgical History History of bladder surgery History of stem cell transplant History of left oophorectomy History of radiofrequency ablation procedure for cardiac arrhythmia (08/07/21) History of lumbar laminectomy (09/2019) History of total left hip arthroplasty History of cataract extraction History of bunionectomy History of bladder suspension procedure History of appendectomy History of hysterectomy History of right oophorectomy Family History Father , Age 43 Hodgkins disease Sister Osteoporosis Mother Myocardial infarction Other Hypertension Social History household members: spouse Smoking Status: Never smoker alcohol intake: current alcohol intake frequency: holidays/special occasions only Alcohol type: wine substance use type: does not use caffeine: Yes Type: coffee Number of servings: 2 what type of physical activity do you participate in: none HPI LUMBAR SPINE Details: This documentation accurately reflects the service provided and the decisions made by me, Dr. Dangelo Fierro MD 09/22/24 0603. Part of today???s visit was documented by Lindy Lees ATC, acting as scribe. NELLA BENÍTEZ is a 74 year old F here today for lumbar and cervical spine MRI review. Patient rates her pain a 5/10 today. Patient states the pain has pretty much stayed the same. She states the pain is not as bad as it was when she was in the ER two different times in August. Patient denies any recent injections to the back. Patient states she has oxycodone that she will take a 1/4 of when the pain is really bad, other than that she just takes Tylenol. 08/19/24: HOLLI (more content not included)... Normal [facility] Urine Cultureon 09-16-2024 URC Culture exhibits no growth. Normal [facility] Comment on above: Performed By: #### M 100.2200 ####[facility] [id number] [place], [place], [address] Urgent Care Visit Reporton 1 11-16-2023 Urgent Care Visit Report [facility] [address], [address] [place] [address] OFFICE VISIT Date of Service: 09/15/24 MR#: [id number] Acct: [id number] Name: NELLA BENÍTEZ Rep #: [id number] : 1950 Provider: JOSE Robles Age/Sex: 74/F Location: [facility] Status: Signed Intake Vital Signs 08/31/24 14:13 09/15/24 10:53 Height 4 ft 11 in 4 ft 11 in Weight: 149 lb 4 oz BMI 30.1 BP 142/72 H Blood Pressure Location Lt brachial Position Sitting Respiration 16 Pulse 78 Pulse Source NIBP Temp 97.8 F Temp Source Oral Pulse Oximetry (%) 97 Oxygen Delivery Method room air Intake Visit Reasons: Urinary tract infection Chief Complaint: pubic pain and 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 denies fever, dysuria, blood in urine. concern for UTI PFSH Medical History Vitamin D deficiency History of Clostridium difficile infection Cancer Thyroid disease Osteoarthritis High cholesterol Injury of back History of hiatal hernia History of IBS Non-smoker Leg cramps History of echocardiogram History of stress test Cardiology follow-up encounter Medullary sponge kidney Internal hemorrhoids Fibromyalgia GERD (gastroesophageal reflux disease) Dysmetabolic syndrome Diverticulosis Cervical disc herniation Anxiety Allergic rhinitis Bloating Epigastric pain Fracture of talus of left ankle, closed Left ankle strain Acute right flank pain Closed fracture of left proximal humerus History of cataract History of gastroesophageal reflux (GERD) Sacro-iliac pain Paroxysmal SVT (supraventricular tachycardia) Essential (primary) hypertension Depression Hypothyroidism Hyperlipidemia Surgical History History of bladder surgery History of stem cell transplant History of left oophorectomy History of radiofrequency ablation procedure for cardiac arrhythmia (08/07/21) History of lumbar laminectomy (09/2019) History of total left hip arthroplasty History of cataract extraction History of bunionectomy History of bladder suspension procedure History of appendectomy History of hysterectomy History of right oophorectomy Family History Father , Age 43 Hodgkins disease Sister Osteoporosis Mother Myocardial infarction Other Hypertension Social History household members: spouse Smoking Status: Never smoker alcohol intake: current alcohol intake frequency: holidays/special occasions only Alcohol type: wine substance use type: does not use caffeine: Yes Type: coffee Number of servings: 2 what type of physical activity do you participate in: none HPI HPI Chief Complaint: pubic pain and low back pain Details: NELLA BENÍTEZ, is a 74 F who presents to the office today for complaint of pubic pressure, bladder spasms and low back pain for the past 5 days. Patient states wanting to be checked for a UTI. She denies dysuria or increasing urgency/frequency. No fever, chills, sweats. No nausea, vomiting, diarrhea. No loss of bowel or bladder control. Patient does have a history of L5 on S1 issues that she is not 100% sure of and is seeing a orthopedic med specialist in 1 week. No other associated symptoms or alleviating/aggravating factors. ROS Const Constitutional: Positive for other (6 system ROS completed with pertinent findings in HPI otherwise normal.) Exam Const General: cooperative and healthy appearing Resp Effort Inspection: normal respiratory effort Auscultation: Bilateral: Clear to Auscultation Cardio Rate: regular rate Rhythm: regular rhythm GI Auscultation: normal bowel sounds General: No CVA tenderness Psych Appearance: grossly normal Mental Status: mental status grossly normal Results POC Urinalysis Dip (Clinic) Office Urine Color Yellow Last Edit by Niurka Medina on 09/15/24 11:16 Office Urine Clarity Clear Last Edit by Niurka Medina on 09/15/24 11:16 Office Urine Glucose Negative Last Edit by Niurka Medina on 09/15/24 11:16 Office Urine Ketones Negative Last Edit by Niurka Medina on 09/15/24 11:16 Off Ur Spec [place] 1.010 Last Edit by Niurka Medina on 09/15/24 11:16 Office Urine pH 5.0 Last Edit by Niurka Medina on 09/15/24 11:16 Office Urine Bilirubin Negative Last Edit by Niurka Medina on 09/15/24 11:16 Office Urine Urobilinogen Negative Last Ed (more content not included)... Normal [facility] Spine Cervical (Routine)on 11-06-2023 Spine Cervical (Routine) [facility] Services [address] [place], [place] [id number] Spine Cervical (Routine) MR#: [id number] Acct: [id number] Name: NELLA BENÍTEZ Rep #: [id number] : 1950 F 74 From: Brayden Thompson MD PCP: Dr. Eunice Joe MD Status: REG CLI Study: Spine Cervical (Routine) Date of Exam: Exam# [id number] Ordering Dr: Dangelo Fierro MD [id number] STUDY: MRI CERVICAL SPINE WITHOUT CONTRAST REASON FOR EXAM: Female, 74 years old. Neck pain. TECHNIQUE: Standardized fat and water weighted pulse sequences were obtained in the sagittal and axial planes. COMPARISON: CT cervical spine without contrast 03/25/2022. FINDINGS: Normal foramen magnum and brainstem-cervical cord junction. Normal craniovertebral junction. Normal anterior atlantoaxial articulation. Normal odontoid process. Mild cervical kyphosis. Old anterior wedge compression fracture of the lower T3 vertebral body. Minimal old anterior wedge compression fracture of the upper T1 and T2 vertebral body cyst. No suspicious acute fractures of the vertebral bodies and posterior osseous elements of the cervical spine. Grade 1 degenerative anterolisthesis of is unchanged. C2-3: Normal endplates. Normal disc height, signal and morphology. Normal central canal and intervertebral neural foramina. C3-4: Normal endplates. Pronounced disc space height narrowing. Normal central canal and left intervertebral neuroforamen. Mild stenosis of the right intervertebral neuroforamen. C4-5: Normal endplates. Normal disc height, signal and morphology. Normal central canal and intervertebral neural foramina. C5-6: Normal endplates. Pronounced disc space height narrowing. Normal central canal and intervertebral neuroforamina. C6-7: Normal endplates. Pronounced disc space height narrowing. Normal central canal and intervertebral neuroforamina. C7-T1: Normal endplates. Normal disc height and morphology. Normal central canal and intervertebral neuroforamina. T1-T2: Slight anterior wedging of the anterior vertebral endplates causing increased anterior disc space height. No ventral extradural defect. Normal central canal and intervertebral neuroforamina. T2-T3: (Sagittal only). Slight anterior wedging of the anterior vertebral endplates causing increased anterior disc space height. No ventral extradural defect. Normal central canal and intervertebral neuroforamina. T3-T4: (Sagittal only). Moderately pronounced anterior wedge compression fracture of the lower T3 vertebral body causing increased anterior disc space height. T4 superior endplate. No ventral extradural defect. Normal central canal and bilateral intervertebral neuroforamina. T4-T5: (Sagittal only). Normal endplates. Normal disc height and morphology. Normal central canal and intervertebral neuroforamina. Normal cervical cord. Normal upper thoracic spinal cord. Normal included midline brainstem and cerebellum. Normal visualized soft tissue structures. MRI/Spine Cervical (Routine) IMPRESSION: 1. No MRI evidence of acute or recent fractures of the vertebral bodies and posterior osseous elements of the cervical spine. 2. Grade 1 degenerative anterolisthesis of C3 on C4 is unchanged. 3. Pronounced disc space height narrowing at C5-C6 and C6-C7 disc space levels are unchanged. 4. Moderately pronounced old anterior wedge compression fracture of the lower T3 vertebral body and minimal old anterior vertebral endplate compression fractures at T1-T2 and T2-3 disc space levels are unchanged. 5. No MRI evidence of cervical extruded disc fragment or cervical disc protrusion. 6. Mild stenosis of the right C3-C4 intervertebral neuroforamen due to degenerative facet arthropathy. 7. Normal cervical spinal cord. Electronically Signed: Brayden Thompson MD at 16:50 EST Reading Location ID and State: [address] [place] [address] , Service support , CC: Dr. Dangelo Fierro MD; Dr. Eunice Joe MD Guest Attendant: Signed Normal [facility] Spine Lumbar (Routine)on Spine Lumbar (Routine) [facility] Imaging Services [address] [place] [id number] Spine Lumbar (Routine) MR#: [id number] Acct: [id number] Name: NELLA BENÍTEZ Rep #: [id number] : 1950 F 74 From: Brayden Thompson MD PCP: Dr. Eunice Joe MD Status: REG CLI Study: Spine Lumbar (Routine) Date of Exam: 09/06/24 Exam# [id number] Ordering Dr: Dangelo Fierro MD [id number] INDICATION: pain EXAMINATION: MRI - MR Spine Lumbar W/O Contrast TECHNIQUE: Multiplanar and multisequence MR images of the lumbar spine. IV Contrast Dosage and Agent: None. COMPARISON: Lumbar spine radiographs the 2023. CT abdomen is contrast 09/07/2023. FINDINGS: VERTEBRAE: Multiple varying degrees of old compression fractures of the lower thoracic spine and lumbar spine. PMMA casts are present inside the old compression fracture of the L2 and L3 vertebral bodies from previous kyphoplasty. There is small extravasation of PMMA cast behind the L2 vertebral body. Moderately pronounced levo rotary scoliosis of the lumbar spine. No suspicious acute fractures or bone edema of the vertebral bodies and posterior osseous elements. VERTEBRAL ALIGNMENT: Mild left lateral degenerative subluxation of L4 on L5 is unchanged. There is preservation of the normal lumbar lordosis. CORD: Normal position and signal intensity of the conus medullaris. L1/L2: Normal disc height and morphology. Normal spinal canal, lateral recesses and neuroforamina. L2/L3: Increased disc space height due to moderate compression fracture of the L2-L3 vertebral bodies. Normal spinal canal, lateral recesses and neuroforamina. L3/L4: Normal disc height and morphology. Normal spinal canal, lateral recesses and neuroforamina. L4/L5: Moderate disc space height narrowing. Small posterior bulging annulus. Normal central canal and bilateral lateral recesses. Moderate stenosis of the left intervertebral neuroforamen. Mild stenosis of the right intervertebral neuroforamen. L5/S1: Normal disc height and morphology. Normal central canal. Severe stenosis of the left intervertebral neuroforamen with impingement of the left L5 nerve. Mild stenosis of the right intervertebral neuroforamen. SOFT TISSUES: Unremarkable. MRI/Spine Lumbar (Routine) IMPRESSION: 1. 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 This is unchanged. 2. No suspicious acute or subacute fractures of the lumbar spine including the visualized sacral ala. 3. Moderately pronounced levo rotary scoliosis of the lumbar spine and mild left lateral degenerative subluxation of L4 on L5. 4. PMMA casts inside the L2 and L3 vertebral bodies from previous kyphoplasty. Small blob of PMMA cast leak into the ventral epidural space behind the L2 vertebral body without associated spinal stenosis. 5. Multiple varying degrees of old compression fractures of the lower thoracic spine and lumbar spine. These are unchanged when compared to CT abdomen and pelvis of 09/07/2023. Electronically Signed: Brayden Thompson MD at 14:51 EST Reading Location ID and State: [address] [place] [address] , Service support , CC: Dr. Dangelo Fierro MD; Dr. Eunice Joe MD Guest Attendant: Signed Normal [facility] Emergency Department Summary on 08-31-2024 Emergency Department Summary [facility] Medical Records Department [address] [place] [address] Emergency Department Summary 08/31/24 MR#: [id number] Acct: [id number] Name: NELLA BENÍTEZ Rep #: [id number] : 1950 74 From: Fred West MD PCP: Dr. Eunice Joe MD Status:REG ER Location: ED HPI History of Present Illness Chief Complaint: Back Informant: patient and spouse/S.O. Onset/Context/Timing Onset: Weeks Context: Sudden Onset (Patient was seen August 18. She had follow-up with Dr. Sahu. She is scheduled for MRI September 19.) Chronic pain exacerbated by: Movement. Timing: Continuous Quality: Aching Location: Lumbar, Buttock, Right Leg and Left Leg Current Severity: Severe Maximum Severity: Severe Worsened by: improves with Movement, Ambulation, Bending and Lifting Relieved by: Nothing Associated Symptoms Associated Symptoms: Radiation to Left Leg; Negative for Numbness, Tingling, Radiation to Right Leg, Fever, Abdominal Pain, Dysuria, Unable to Ambulate, Unable to Transfer, Urinary Retention, Urinary Incontinence, Constipation or Fecal Incontinence Narrative Narrative: Patient is a 74-year-old woman. She was seen on August 18 for back pain. She had follow-up with Dr. Sahu. She is scheduled for outpatient MRI in September. Patient denies bowel or bladder dysfunction. She denies saddle paresthesia or anesthesia. She complains of pain radiating down the posterior aspect of her left leg. She denies foot drop. Denies buckling of her knee going up or down the 1 or 2 steps to enter her home. She denies numbness in the left or right leg. She has had no recent dental procedure. She denies fever, chills night sweats. Her low back pain is bilateral. There is no history of recent trauma. Prior similar symptoms: Yes Recent Illness/Hospitalization: Yes (Seen August 12 for back pain and march 03 for anxiety.) [facility] Medical History Vitamin D deficiency History of Clostridium difficile infection Cancer Thyroid disease Osteoarthritis High cholesterol Injury of back History of hiatal hernia History of IBS Non-smoker Leg cramps History of echocardiogram History of stress test Cardiology follow-up encounter Medullary sponge kidney Internal hemorrhoids Fibromyalgia GERD (gastroesophageal reflux disease) Dysmetabolic syndrome Diverticulosis Cervical disc herniation Anxiety Allergic rhinitis Bloating Epigastric pain Fracture of talus of left ankle, closed Left ankle strain Acute right flank pain Closed fracture of left proximal humerus History of cataract History of gastroesophageal reflux (GERD) Sacro-iliac pain Paroxysmal SVT (supraventricular tachycardia) Essential (primary) hypertension Depression Hypothyroidism Hyperlipidemia Home Medications ???Medication ???Instructions ???Recorded ???Last Taken ???Type citalopram 40 mg tablet 40 mg PO QHS depression 09/24/16 01/08/19 History 40 MG levothyroxine 50 mcg tablet 50 mcg PO DAILY thyroid 09/24/16 04/06/23 05:00 History pantoprazole 40 mg tablet,delayed 40 mg PO BID gerd 09/24/16 04/06/23 05:00 History release tizanidine 4 mg tablet 4 mg PO QHS muscle spasms 09/28/18 01/08/19 History 4 MG cholecalciferol (vitamin D3) 125 125 mcg PO DAILY 01/31/21 Unknown History mcg (5,000 unit) tablet meloxicam 15 mg tablet 15 mg PO DAILY 11/14/22 Unknown History bupropion HCl 150 mg tablet,12 hr 150 mg PO BID 04/01/23 Unknown History sustained-release sucralfate 100 mg/mL oral 10 ml PO BID #1,000 mL 09/07/23 Unknown Rx suspension (Carafate) fexofenadine 180 mg tablet 180 mg PO DAILY 01/06/24 Unknown History (Allergy Relief (fexofenadine)) lisinopril 2.5 mg tablet 2.5 mg PO DAILY #90 tabs 04/07/24 Unknown Rx acetaminophen 650 mg 1,300 mg PO Q12H PRN Pain 06/10/24 Unknown History tablet,extended release lorazepam 1 mg tablet (Ativan) 1 mg PO BID PRN anxiety 06/10/24 Unknown History denosumab 60 mg/mL subcutaneous 60 mg subcut [id number] #1 mL 07/19/24 Unknown Rx syringe (Prolia) oxycodone 5 mg tablet 5 mg PO Q6H PRN pain 3 days #12 08/12/24 Unknown Rx tabs oxycodone-acetaminophen 5 mg-325 1 tab PO Q6H PRN PRN pain 7 days 08/31/24 Unknown Rx mg tablet #28 TABLETS Allergy/AdvReac Type Severity Reaction Status Date / Time latex Allergy COUGHING Verified 08/18/24 12:40 AND SORE THROAT Family History Father , Age 43 Hodgkins disease Sister Osteoporosis Mother Myocardial infarction Other Hypertension Surgical History History of bladder surgery History of stem cell transplant History of left oophorectomy History of radiofrequency ablation procedure for cardiac arrhy (more content not included)... [facility] CNOVon 08-25-2024 CNOV Office Visit (SLEWST ) -------- NELLA BENÍTEZ ([id number]) 1950 F Date Time Provider Department 08/25/24 2:00 PM RUTH DUKES During your visit today, we recorded the following information about you: Pulse Respiration Blood pressure Weight 102/minute 18/minute 134/90 66.1 kg Ruth Dukes APRN.CNP 08/25/2024 3:18 PM Signed [facility] Disorders Center Follow up/ Established patient visit Date of last visit : 03/25/2024 The following Impression/Plan was copied and pasted from the patient's last Sleep Disorders Center visit on 03/25/24: IMPRESSION/PLAN: G47.33 CHINTAN (obstructive sleep apnea) (primary encounter diagnosis) I10 Essential hypertension Nella Benítez is a 73 year old female with mild CHINTAN with secondary diagnosis of HTN. PMH of fibromyalgia, HLD, paroxysmal SVT, GERD, medullary sponge kidney, CKD, hypothyroidism, allergic rhinitis, cervical disc disease, spinal stenosis, anxiety. We reviewed her PSG results, discussed CHINTAN, risks of untreated CHINTAN, symptoms of CHINTAN, treatment options. Her CHINTAN isn't severe enough to qualify for Inspire. She has dental issues and TMD so she's not a good candidate for oral mandibular advancement device. Discussed PAP therapy in detail. Would look for significant improvement in her frequent nocturnal awakenings and nocturia with PAP therapy. Going away for April and May, she and her are driving cross-country. Will see if [facility] can start her on PAP before she leaves. - Will start Auto CPAP 5-15 cmH2O with a Nasal pillows mask or nasal mask - I will have a prescription sent to a [employer] - [employer] who will be calling you in the next 1-2 weeks or so. Please call them directly or us if you do not hear from them in this time frame. - You should be eligible for new supplies approximately every 3-6 months, depending on your insurance coverage. - If your mask doesn't fit well, call the [employer] company before 30 days are up to get a new mask without an additional charge. - Insurance requires regular usage and periodic office follow ups for PAP therapy, to continue to cover supplies. - Follow up in 3 months in the office. Recommend scheduling this appointment now to ensure the best time for you. Ruth Dukes APRN.CNP Here for follow up for mild CHINTAN which is exacerbated to severe in REM sleep. Mild in supine sleep. AHI is normal in off-supine sleep. Her PSG was ordered by Cardiology where she is followed for paroxysmal SVT. Just looking at her CPAP makes her anxious; she is having a hard time using it. Has chronic back pain so she can't get comfortable at night. She has dental issues and TMD so she's not a good candidate for oral mandibular advancement device. SLEEP APNEA Sleep apnea type : CHINTAN, Most Recent Apnea-Hypopnea Index (AHI): 7.2, supine AHI 11.4, REM AHI 36 Treatment : PAP therapy DME: [facility] PAP History: Current PAP settin-15 cm H2O. Reviewed objective PAP compliance data: Mask type: nasal mask There is not a perceived benefit by the patient -------- ------ PATIENT-ENTERED QUESTIONNAIRE SLEEP SCORES 08/24/2024 Sleep Questions Reason for visit: Sleep apnea Difficulty falling or staying asleep or poor sleep quality Accidents or near accidents due to drowsy drivin Multiple values from one day are sorted in reverse-chronological order 03/18/2024 08/24/2024 [place] Sleepiness Scale Score 3 (No clinically significant daytime sleepiness) 1 (No clinically significant daytime sleepiness) 03/18/2024 08/24/2024 PROMIS CAT Sleep Disturbance PROMIS Sleep Disturbance T-Score 54 (within normal limits) 54 (within normal limits) PROMIS Sleep Disturbance Percentile 34 34 03/18/2024 Restless Leg Syndrome Score 0 (No Symptoms) 12/19/2019 01/17/2021 03/24/2024 PHQ-9 Score 6 6 0 04/17/2021 01/09/2022 03/13/2024 PROMIS Global Health - (T-Scores - the mean of general population = 50. Five points is a clinically meaningful difference.) Physical T-Score 29.6 29.6 47.7 Mental T-Score 43.5 38.8 43.5 ALLERGIES Allergen Reactions Latex Rash, Itching Actonel [Risedronat* GI Upset Fosamax [Alendronat* GI Upset CURRENT MEDICATIONS: tiZANidine (ZANAFLEX) 4 mg tablet Take 1 tablet by mouth two times a day as needed. buPROPion SR (WELLBUTRIN SR) 150 mg 12 hr tablet Take 1 tablet by mouth once daily. busPIRone (BUSPAR) 15 mg tablet Take 1.5 tablets by mouth two times a day. sucralfate (CARAFATE) 1 gram tablet Take 1 tablet by mouth four times daily. As directed for flare ups. May dissolve in 1 to 2 teaspoons of water then swallow. ALPRAZolam (XANAX) 0.5 mg tablet Take 1 tablet by mouth two times a day as needed for up to 60 days. For Anxiety and SOB related to throat/laryngospasm (more content not included)... [facility]25[facility] -------- NELLA BENÍTEZ ([id number]) 1950 F Date Time Provider Department 08/25/24 RUTH DUKES During your visit today, we recorded the following information about you: Makayla Lopez OCCA 08/25/2024 3:25 PM Signed Orders faxed to [facility] to discontinue Cpap, per provider. JIMBO Bernal Allergies As of Date: 08/25/2024 Noted Allergy Reaction LATEX 04/06/2007 2 - Rash 9 - Itching ACTONEL (RISEDRONATE SODIUM) 10/30/2005 8 - GI Upset FOSAMAX (ALENDRONATE SODIUM) 10/30/2005 8 - GI Upset Date Reviewed: 08/25/2024 Reviewed by: Makayla Lopez OCCA - Fully Assessed Reason for Visit: Orders [681] Prescriptions as of 08/25/2024 - tiZANidine (ZANAFLEX) 4 mg tablet Take 1 tablet by mouth two times a day as needed. - buPROPion SR (WELLBUTRIN SR) 150 mg 12 hr tablet Take 1 tablet by mouth once daily. - busPIRone (BUSPAR) 15 mg tablet Take 1.5 tablets by mouth two times a day. - sucralfate (CARAFATE) 1 gram tablet Take 1 tablet by mouth four times daily. As directed for flare ups. May dissolve in 1 to 2 teaspoons of water then swallow. - ALPRAZolam (XANAX) 0.5 mg tablet Take 1 tablet by mouth two times a day as needed for up to 60 days. For Anxiety and SOB related to throat/laryngospasm as directed - Cholecalciferol, Vitamin D3, 125 mcg (5,000 unit) cap Hold for the month of August then resume once weekly in September. - lisinopril 2.5 mg tablet Take 2.5 mg by mouth once daily. Stopped taking routinely Thursday (08/08) and using as needed for now - citalopram (CELEXA) 40 mg tablet Take 1 tablet by mouth once daily. - meloxicam (MOBIC) 15 mg tablet Take 1 tablet by mouth once daily. Take with food. - pantoprazole DR (PROTONIX) 40 mg tablet Take 1 tablet by mouth two times a day. As directed - levothyroxine (SYNTHROID) 50 mcg tablet Take 1 tablet by mouth once daily. - acetaminophen (TYLENOL 8 HOUR) 650 mg CR tablet Take 2 tablets by mouth every 8 hours as needed for pain. (try this one) - calcium carbonate 600 mg-cholecalciferol 200 units (CALCIUM 600 + D,3,) 600 mg(1,500mg) -200 unit tab Take 1 tablet by mouth twice daily. Calcium viactive chewable - fexofenadine (ALVINA) 180 mg tablet Take 180 mg by mouth once daily. Problem List As Of Date 08/25/2024 Noted Resolved Fibromyalgia [LPV5506] 06/30/2005 Recurrent major depressive disorder, in remissi*06/30/2005 PERSISTENT INSOMNIA [G47.00] 06/30/2005 ESOPHAGEAL REFLUX [K21.9] 06/30/2005 ALLERGIC RHINITIS NOS [J30.9] 06/30/2005 Osteoporosis with current pathological fracture* DYSMETABOLIC SYNDROME X [E88.810] Secondary hyperparathyroidism, non-renal (HCC) *04/10/2006 07/12/2023 MALAISE AND FATIGUE NEC [R53.81, R53.83] 09/08/2006 Other hyperlipidemia [E78.49] 11/30/2007 Medullary Sponge Kidney [Q61.5] 11/26/2009 Diarrhea [R19.7] 01/02/2010 Diverticulosis of Colon (without Mention of Hem*01/02/2010 Internal Hemorrhoids without Mention of Complic*01/02/2010 External Hemorrhoids without Mention of Complic*01/02/2010 SI (sacroiliac) joint dysfunction [M53.3] 11/03/2011 Hypothyroidism [E03.9] 08/31/2013 Plantar fasciitis of left foot [M72.2] 09/04/2014 Anxiety [F41.9] T12 compression fracture (HCC) [S22.080A] 06/08/2018 Cervical disc disorder of mid-cervical region [*06/08/2018 Spinal stenosis, lumbar region, without neuroge*06/08/2018 Essential hypertension [I10] 09/14/2021 Stage 3a chronic kidney disease (HCC) [N18.31] 02/04/2023 Paroxysmal SVT (supraventricular tachycardia) (*02/04/2023 CHINTAN (obstructive sleep apnea) [G47.33] 03/25/2024 Encounter Status:Closed by MAKAYLA LOPEZ on 08/25/24 Normal [facility] Cerv Spine 4 or 5 Viewson Cerv Spine 4 or 5 Views [facility] Radiology [address] [facility] [place] [address] Cerv Spine 4 or 5 Views MR#: [id number] Acct: [id number] Name: NELLA BENÍTEZ Rep #: [id number] : 1950 F 74 From: Bee su MD PCP: Dr. Eunice Joe MD Status: DEP AMB Study: Cerv Spine 4 or 5 Views Date of Exam: 08/18/24 Exam# [id number] Ordering Dr: Dangelo Fierro MD [id number] HISTORY: neck pain -- Please do upright AP lateral flexion-extension. TECHNIQUE: XR Spine Cervical 4 or 5 Views. COMPARISON: CT 03/25/2022. FINDINGS: VERTEBRAE: Vertebral body heights maintained. No acute fracture identified. ALIGNMENT: Chronic 3 mm anterolisthesis of C3-4, similar with flexion-extension maneuver. INTERVERTEBRAL DISCS: Degenerative changes with moderate intervertebral disc space narrowing at multiple levels. SOFT TISSUES: No significant prevertebral soft tissue swelling. RAD/Cerv Spine 4 or 5 Views IMPRESSION: No acute fracture or dislocation identified in the cervical spine. Chronic C3-4 anterolisthesis. Multilevel degenerative change. Electronically Signed: Bee Nice MD at 15:48 EST , CC: Dr. Dangelo Fierro MD; Dr. Eunice Joe MD Guest Attendant: Signed Normal [facility] L/S Spine Min 4 Viewson L/S Spine Min 4 Views [facility] Radiology [address] [place] [address] L/S Spine Min 4 Views MR#: [id number] Acct: [id number] Name: NELLA BENÍTEZ Rep #: [id number] : 1950 F 74 From: Bee su MD PCP: Dr. Eunice Joe MD Status: DEP AMB Study: L/S Spine Min 4 Views Date of Exam: 08/18/24 Exam# [id number] Ordering Dr: Roopa Crisostomo [id number] HISTORY: low back pain -- please do upright AP, LAT, flex/ext. TECHNIQUE: XR Spine Lumbar Min 4 Views. COMPARISON: CT 09/07/2023. FINDINGS: VERTEBRAE: Chronic T12 compression fracture. Chronic L2 and L3 compression fractures with vertebroplasty. Osteopenia. Left hip arthroplasty noted. ALIGNMENT: No significant anterior or posterior subluxation. Moderate thoracic dextroscoliosis and lumbar levoscoliosis. INTERVERTEBRAL DISCS: Degenerative changes and intervertebral disc space narrowing at multiple levels. SOFT TISSUES: Large hiatal hernia. RAD/L/S Spine Min 4 Views IMPRESSION: No acute fracture or dislocation identified in the lumbar spine. Chronic T12, L2, and L3 compression fractures. Moderate scoliosis. Multilevel degenerative change. Electronically Signed: Bee Nice MD at 15:46 EST , CC: JOSE Wells; Dr. Eunice Joe MD Guest Attendant: Signed Normal [facility] Orthopedic Visit Reporton Orthopedic Visit Report [facility] [address] [place] [address] OFFICE VISIT Date of Service: 08/18/24 MR#: [id number] Acct: [id number] Name: NELLA BENÍTEZ Rep #: [id number] : 1950 Provider: Dr. Dangelo Fierro MD Age/Sex: 74/F Location: [facility] Status: Signed Intake Vital Signs 06/10/24 13:05 08/12/24 12:46 Height 4 ft 11 in 4 ft 11 in Intake Visit Reasons: LUMBAR SPINE Is patient in pain?: Yes Pain scale (1-10): 8 Allergies latex Allergy (Verified 08/18/24 12:40) COUGHING AND SORE THROAT Medications ???Medication ???Instructions ???Recorded ???Confirmed ???Type citalopram 40 mg tablet 40 mg PO QHS depression 09/24/16 08/18/24 History levothyroxine 50 mcg tablet 50 mcg PO DAILY thyroid 09/24/16 08/18/24 History pantoprazole 40 mg tablet,delayed 40 mg PO BID gerd 09/24/16 08/18/24 History release tizanidine 4 mg tablet 4 mg PO QHS muscle spasms 09/28/18 08/18/24 History cholecalciferol (vitamin D3) 125 125 mcg PO DAILY 01/31/21 08/18/24 History mcg (5,000 unit) tablet meloxicam 15 mg tablet 15 mg PO DAILY 11/14/22 08/18/24 History bupropion HCl 150 mg tablet,12 hr 150 mg PO BID 04/01/23 08/18/24 History sustained-release sucralfate 100 mg/mL oral 10 ml PO BID #1,000 mL 09/07/23 08/18/24 Rx suspension (Carafate) fexofenadine 180 mg tablet 180 mg PO DAILY 01/06/24 08/18/24 History (Allergy Relief (fexofenadine)) lisinopril 2.5 mg tablet 2.5 mg PO DAILY #90 tabs 04/07/24 08/18/24 Rx acetaminophen 650 mg 1,300 mg PO Q12H PRN Pain 06/10/24 08/18/24 History tablet,extended release lorazepam 1 mg tablet (Ativan) 1 mg PO BID PRN anxiety 06/10/24 08/18/24 History denosumab 60 mg/mL subcutaneous 60 mg subcut [id number] #1 mL 07/19/24 08/18/24 Rx syringe (Prolia) oxycodone 5 mg tablet 5 mg PO Q6H PRN pain 3 days #12 08/12/24 08/18/24 Rx tabs Have you fallen in the past year?: No PFSH Medical History Vitamin D deficiency History of Clostridium difficile infection Cancer Thyroid disease Osteoarthritis High cholesterol Injury of back History of hiatal hernia History of IBS Non-smoker Leg cramps History of echocardiogram History of stress test Cardiology follow-up encounter Medullary sponge kidney Internal hemorrhoids Fibromyalgia GERD (gastroesophageal reflux disease) Dysmetabolic syndrome Diverticulosis Cervical disc herniation Anxiety Allergic rhinitis Bloating Epigastric pain Fracture of talus of left ankle, closed Left ankle strain Acute right flank pain Closed fracture of left proximal humerus History of cataract History of gastroesophageal reflux (GERD) Sacro-iliac pain Paroxysmal SVT (supraventricular tachycardia) Essential (primary) hypertension Depression Hypothyroidism Hyperlipidemia Surgical History History of bladder surgery History of stem cell transplant History of left oophorectomy History of radiofrequency ablation procedure for cardiac arrhythmia (08/07/21) History of lumbar laminectomy (09/2019) History of total left hip arthroplasty History of cataract extraction History of bunionectomy History of bladder suspension procedure History of appendectomy History of hysterectomy History of right oophorectomy Family History Father , Age 43 Hodgkins disease Sister Osteoporosis Mother Myocardial infarction Other Hypertension Social History household members: spouse Smoking Status: Never smoker alcohol intake: current alcohol intake frequency: holidays/special occasions only Alcohol type: wine substance use type: does not use caffeine: Yes Type: coffee Number of servings: 2 what type of physical activity do you participate in: none HPI LUMBAR SPINE Details: This documentation accurately reflects the service provided and the decisions made by me, Dr. Dangelo Fierro MD 08/18/24 1230. Part of today???s visit was documented by [ ], acting as scribe. NELLA BENÍTEZ is a 74 year old F here today for low back pain. Patient notes that she has had low back pain for entire adult life but her pain has worsened recently. She had lumbar spine L4-5 and L5-S1 laminectomy discectomy with a doctor at the [facility] in 2018, which was slightly helpful. She has seen Dr Álvarez for kyphoplasty in 2019 or 2020 and she was told one leaked. Patient had stem cells in 2021 which was very helpful for about a year a half. She complains of low back pain, into her left hip, posterior hip and down her left leg into her foot. She complains of a throbbing into her left knee. Patient (more content not included)... Normal [facility] 08-17-2024 [facility] Telephone (SLEWST) -------- NELLA BENÍTEZ ([id number]) 1950 F Date Time Provider Department 08/17/24 RUTH DUKES During your visit today, we recorded the following information about you: Mi Elmore LPN 08/17/2024 11:31 AM Signed Pt called to cancel appt with Ruth Dukes on 08/25/24. Pt wants Ruth to know that she is canceling because she is having such terrible back pain. She will be seeing Dr Fierro next week for back issues. Pt was transferred to planning division superintendent to reschedule appt with Yoana Dukes. FRANCIS Glaser Rebecca, APRN.CNP 08/17/2024 4:40 PM Signed Noted thanks Ruth Dukes APRN.CNP Allergies As of Date: 08/17/2024 Noted Allergy Reaction LATEX 04/06/2007 2 - Rash 9 - Itching ACTONEL (RISEDRONATE SODIUM) 10/30/2005 8 - GI Upset FOSAMAX (ALENDRONATE SODIUM) 10/30/2005 8 - GI Upset Date Reviewed: 08/10/2024 Reviewed by: Evelin Epstein LPN - Fully Assessed Reason for Visit: Appointment [[id number]] Prescriptions as of 08/17/2024 - tiZANidine (ZANAFLEX) 4 mg tablet Take 1 tablet by mouth two times a day as needed. - buPROPion SR (WELLBUTRIN SR) 150 mg 12 hr tablet Take 1 tablet by mouth once daily. - busPIRone (BUSPAR) 15 mg tablet Take 1.5 tablets by mouth two times a day. - sucralfate (CARAFATE) 1 gram tablet Take 1 tablet by mouth four times daily. As directed for flare ups. May dissolve in 1 to 2 teaspoons of water then swallow. - ALPRAZolam (XANAX) 0.5 mg tablet Take 1 tablet by mouth two times a day as needed for up to 60 days. For Anxiety and SOB related to throat/laryngospasm as directed - Cholecalciferol, Vitamin D3, 125 mcg (5,000 unit) cap Hold for the month of August then resume once weekly in September. - lisinopril 2.5 mg tablet Take 2.5 mg by mouth once daily. Stopped taking routinely Thursday (08/08) and using as needed for now - citalopram (CELEXA) 40 mg tablet Take 1 tablet by mouth once daily. - meloxicam (MOBIC) 15 mg tablet Take 1 tablet by mouth once daily. Take with food. - CPAP/BIPAP/OTHER autoCPAP 5-15 cmH2O DME [employer] - pantoprazole DR (PROTONIX) 40 mg tablet Take 1 tablet by mouth two times a day. As directed - levothyroxine (SYNTHROID) 50 mcg tablet Take 1 tablet by mouth once daily. - acetaminophen (TYLENOL 8 HOUR) 650 mg CR tablet Take 2 tablets by mouth every 8 hours as needed for pain. (try this one) - calcium carbonate 600 mg-cholecalciferol 200 units (CALCIUM 600 + D,3,) 600 mg(1,500mg) -200 unit tab Take 1 tablet by mouth twice daily. Calcium viactive chewable - fexofenadine (ALVINA) 180 mg tablet Take 180 mg by mouth once daily. Problem List As Of Date 08/17/2024 Noted Resolved Fibromyalgia [PQP4241] 06/30/2005 Recurrent major depressive disorder, in remissi*06/30/2005 PERSISTENT INSOMNIA [G47.00] 06/30/2005 ESOPHAGEAL REFLUX [K21.9] 06/30/2005 ALLERGIC RHINITIS NOS [J30.9] 06/30/2005 Osteoporosis with current pathological fracture* DYSMETABOLIC SYNDROME X [E88.810] Secondary hyperparathyroidism, non-renal (HCC) *04/10/2006 07/12/2023 MALAISE AND FATIGUE NEC [R53.81, R53.83] 09/08/2006 Other hyperlipidemia [E78.49] 11/30/2007 Medullary Sponge Kidney [Q61.5] 11/26/2009 Diarrhea [R19.7] 01/02/2010 Diverticulosis of Colon (without Mention of Hem*01/02/2010 Internal Hemorrhoids without Mention of Complic*01/02/2010 External Hemorrhoids without Mention of Complic*01/02/2010 SI (sacroiliac) joint dysfunction [M53.3] 11/03/2011 Hypothyroidism [E03.9] 08/31/2013 Plantar fasciitis of left foot [M72.2] 09/04/2014 Anxiety [F41.9] T12 compression fracture (HCC) [S22.080A] 06/08/2018 Cervical disc disorder of mid-cervical region [*06/08/2018 Spinal stenosis, lumbar region, without neuroge*06/08/2018 Essential hypertension [I10] 09/14/2021 Stage 3a chronic kidney disease (HCC) [N18.31] 02/04/2023 Paroxysmal SVT (supraventricular tachycardia) (*02/04/2023 CHINTAN (obstructive sleep apnea) [G47.33] 03/25/2024 Encounter Status:Closed by RUTH DUKES on 08/17/24 Normal [facility] Emergency Department Summary on 08-12-2024 Emergency Department Summary [facility] Medical Records Department [address] [place] [address] Emergency Department Summary 08/12/24 MR#: [id number] Acct: [id number] Name: NELLA BENÍTEZ Rep #: [id number] : 1950 74 From: Tracie Martinez DO PCP: Dr. Eunice Joe MD Status:DEP ER Location: ED HPI History of Present Illness Chief Complaint: Back Informant: patient Narrative Narrative: Patient is a 74 year old year old female with history of chronic pain of her back, scoliosis, prior compression fracture with kyphoplasty, prior appendectomy with laminectomy of L4/5 and L5/S1 performed at [facility]. She is presenting with months of worsening back pain. Patient states she has been taking 1300 mg of Tylenol twice a day, tizanidine 4 mg, Mobic daily as well as topical Voltaren, Salonpas, Nervivie and Biofreeze that she alternates with no relief. The pain continues to progress. She states it is her entire thoracic and lumbar spine and then goes to her left hip and then down her left leg. She also notes that she think she has a herniated disc in her neck because when she turns her head a certain way she gets pain that shoots down the lower part of her left arm. She is not on any blood thinners. Denies any bowel or bladder incontinence. She feels that her leg was weak but thinks secondary to pain. She denies any dragging of her leg. She states that she cannot find a position of comfort in every position is uncomfortable. States is not sleeping at night. She has a history of a left total arthroplasty. She states movements do make the pain worse. Is seen Dr. Samson in 2 weeks ago was put on a Medrol Dosepak which only had improvement for the first 3 days. Has appointment to see Dr. Fierro next week. Has previously seen Dr. Anna for pain management but had not seen him in some time. Denies any recent falls or injuries. [facility] Medical History Vitamin D deficiency History of Clostridium difficile infection Cancer Thyroid disease Osteoarthritis High cholesterol Injury of back History of hiatal hernia History of IBS Non-smoker Leg cramps History of echocardiogram History of stress test Cardiology follow-up encounter Medullary sponge kidney Internal hemorrhoids Fibromyalgia GERD (gastroesophageal reflux disease) Dysmetabolic syndrome Diverticulosis Cervical disc herniation Anxiety Allergic rhinitis Bloating Epigastric pain Fracture of talus of left ankle, closed Left ankle strain Acute right flank pain Closed fracture of left proximal humerus History of cataract History of gastroesophageal reflux (GERD) Sacro-iliac pain Paroxysmal SVT (supraventricular tachycardia) Essential (primary) hypertension Depression Hypothyroidism Hyperlipidemia Home Medications ???Medication ???Instructions ???Recorded ???Last Taken ???Type citalopram 40 mg tablet 40 mg PO QHS depression 09/24/16 01/08/19 History 40 MG levothyroxine 50 mcg tablet 50 mcg PO DAILY thyroid 09/24/16 04/06/23 05:00 History pantoprazole 40 mg tablet,delayed 40 mg PO BID gerd 09/24/16 04/06/23 05:00 History release tizanidine 4 mg tablet 4 mg PO QHS muscle spasms 09/28/18 01/08/19 History 4 MG cholecalciferol (vitamin D3) 125 125 mcg PO DAILY 01/31/21 Unknown History mcg (5,000 unit) tablet meloxicam 15 mg tablet 15 mg PO DAILY 11/14/22 Unknown History bupropion HCl 150 mg tablet,12 hr 150 mg PO BID 04/01/23 Unknown History sustained-release sucralfate 100 mg/mL oral 10 ml PO BID #1,000 mL 09/07/23 Unknown Rx suspension (Carafate) fexofenadine 180 mg tablet 180 mg PO DAILY 01/06/24 Unknown History (Allergy Relief (fexofenadine)) lisinopril 2.5 mg tablet 2.5 mg PO DAILY #90 tabs 04/07/24 Unknown Rx acetaminophen 650 mg 1,300 mg PO Q12H PRN Pain 06/10/24 Unknown History tablet,extended release lorazepam 1 mg tablet (Ativan) 1 mg PO BID PRN anxiety 06/10/24 Unknown History denosumab 60 mg/mL subcutaneous 60 mg subcut [id number] #1 mL 07/19/24 Unknown Rx syringe (Prolia) oxycodone 5 mg tablet 5 mg PO Q6H PRN pain 3 days #12 08/12/24 Unknown Rx tabs Allergy/AdvReac Type Severity Reaction Status Date / Time latex Allergy COUGHING Verified 08/12/24 12:49 AND SORE THROAT Family History Father , Age 43 Hodgkins disease Sister Osteoporosis Mother Myocardial infarction Other Hypertension Surgical History History of bladder surgery History of stem cell transplant History of left oophorectomy History of radiofrequency ablation procedure for cardiac arrhythmia (08/07/21) History of lumbar laminectomy (09/2019) History of total left hip arthroplasty History of ca (more content not included)... [facility] 08-10-2024 [facility] Office Visit (INTMWS ) -------- NELLA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 Facility: [facility] Address: [facility] [place] [address] Performed By: #### 2 4323-8, 2731-8 #### [facility] CLIA [id number] [address] [place] [address] [place] ALP [Catalytic activity/Vol] 64 U/L Normal 34-123 [facility] Comment on above: Order Comment: Speci men Type: BLOOD SPECIMEN Ordering Facility: [facility] Address: [facility] [place] [address] Performed By: #### 2 4323-8, 2730-8 #### [facility] CLIA [id number] [address] [address] [place] ALT [Catalytic activity/Vol] 11 U/L Normal 7-38 [facility] Comment on above: Order Comment: Speci men Type: BLOOD SPECIMEN Ordering Facility: [facility] Address: [address] [place] [address] Performed By: #### 2 4323-8, 8 #### [facility] CLIA [id number] [address] [place] [id number] [place] Anion gap [Moles/Vol] 13 mmol/L Normal 8-15 [facility] Comment on above: Order Comment: Speci men Type: BLOOD SPECIMEN Ordering Facility: [facility] Address: [address] [place] [address] Performed By: #### 2 4323-8, 8 #### [facility] CLIA [id number] [address] [place], [place] [address] [place] AST [Catalytic activity/Vol] 16 U/L Normal 13-35 [facility] Comment on above: Order Comment: Speci men Type: BLOOD SPECIMEN Ordering Facility: [facility] Address: [address] [place] [address] Performed By: #### 2 4323-8, 8 #### [facility] CLIA [id number] [address] [place], [place] [address] [place] Bilirubin [Mass/Vol] 0.4 mg/dL Normal 0.2-1.3 [facility] Comment on above: Order Comment: Speci men Type: BLOOD SPECIMEN Ordering Facility: [facility] Address: [address] [place] [address] Performed By: #### 2 4323-8, 2730-8 #### [facility] CLIA [id number] [address] [place], [place] [address] [place] Calcium [Mass/Vol] 9.4 mg/dL Normal 8.5-10.[address] [facility] Comment on above: Order Comment: Speci men Type: BLOOD SPECIMEN Ordering Facility: [facility] Address: [address] [place] [address] Performed By: #### 2 4323-8, 2731-05 #### [facility] CLIA [id number] [address] [place] [id number] [place] Chloride [Moles/Vol] 103 mmol/L Normal 98-107 [facility] Comment on above: Order Comment: Speci men Type: BLOOD SPECIMEN Ordering Facility: [facility] Address: [address] [place] [address] Performed By: #### 2 432-8, 2731-05 #### [facility] CLIA [id number] [address] [place] [address] [place] CO2 [Moles/Vol] 23 mmol/L Normal 22-30 [facility] Comment on above: Order Comment: Speci men Type: BLOOD SPECIMEN Ordering Facility: [facility] Address: [address] [place] [address] Performed By: #### 2 4323-8, 2731-05 #### [facility] CLIA [id number] [address] [place], [place] [address] [place] Creatinine [Mass/Vol] 1.03 mg/dL High 0.58-0.96 [facility] Comment on above: Order Comment: Speci men Type: BLOOD SPECIMEN Ordering Facility: [facility] Address: [address] [place] [address] Performed By: #### 2 4323-8, 2731-05 #### [facility] CLIA [id number] [address] [place], [place] [address] [place] Creatinine and Glomerular filtration rate.predicted panel (S/P/Bld) 58 mL/min/1.73m??? Low >=60 [facility] Comment on above: Order Comment: Speci men Type: BLOOD SPECIMEN Ordering Facility: [facility] Address: [address] [place] [address] Result Comment: Jessika mated Glomerular Filtration Rate (eGFR) is calculated using the 2020 CKD-EPI creatinine equation. This equation utilizes serum creatinine, sex, and age as parameters. The creatinine assay has traceable calibration to isotope dilution-mass spectrometry. Refer to KDIGO guidelines for clinical interpretation. In patients with unstable renal function, e.g. those with acute kidney injury, the eGFR may not accurately reflect actual GFR. Performed By: #### 2 4323-8, 2731-05 #### [facility] CLIA [id number] [address] [place], [place] [address] [place] Glucose [Mass/Vol] 100 mg/dL High 74-[address] [facility] Comment on above: Order Comment: Lenka oneill Type: BLOOD SPECIMEN Ordering Facility: [facility] Address: [address] [place], [place] [address] Result Comment: The [place] Diabetes Association (ADA) provides guidance for cutoff values for fasting glucose and random glucose. The ADA defines fasting as no caloric intake for at least 8 hours. Fasting plasma glucose results between 100 to 125 mg/dL indicate increased risk for diabetes (prediabetes). Fasting plasma glucose results greater than or equal to 126 mg/dL meet the criteria for diagnosis of diabetes. In the absence of unequivocal hyperglycemia, results should be confirmed by repeat testing. In a patient with classic symptoms of hyperglycemia or hyperglycemic crisis, random plasma glucose results greater than or equal to 200 mg/dL meet the criteria for diagnosis of diabetes. Reference: Standards of Medical Care in Diabetes 2016, [employer] Diabetes Association. Diabetes Care. 2016.39(Suppl 1). Performed By: #### 2 4323-8, 8 #### [facility] CLIA [id number] [address] [place] [address] [place] Potassium [Moles/Vol] 3.7 mmol/L Normal 3.7-5.1 [facility] Comment on above: Order Comment: Lenka oneill Type: BLOOD SPECIMEN Ordering Facility: [facility] Address: [address] [place], [place] [address] Performed By: #### 2 4323-8, 8 #### [facility] CLIA [id number] [address] [place] [address] [place] Protein [Mass/Vol] 6.4 g/dL Normal 6.3-8.[address] [facility] Comment on above: Order Comment: Speci men Type: BLOOD SPECIMEN Ordering Facility: [facility] Address: [facility] [place] [address] Performed By: #### 2 432-8, 8 #### [facility] CLIA [id number] [address] [place] [address] [place] Sodium [Moles/Vol] 139 mmol/L Normal 136-[address] [facility] Comment on above: Order Comment: Speci men Type: BLOOD SPECIMEN Ordering Facility: [facility] Address: [facility] [place] [address] Performed By: #### 2 4323-8, 8 #### [facility] CLIA [id number] [address] [place] [address] [place] Urea nitrogen [Mass/Vol] 11 mg/dL Normal 7-21 [facility] Comment on above: Order Comment: Speci men Type: BLOOD SPECIMEN Ordering Facility: [facility] Address: [facility] [place] [address] Performed By: #### 2 4323-8, 8 #### [facility] CLIA [id number] [address] [place] [id number] [place] PTH-Intact [facility] 08-3 -2023 Parathyrin.intact [Mass/Vol] 57 pg/mL Normal 15-65 [facility] Comment on above: Order Comment: Speci men Type: BLOOD SPECIMEN Ordering Facility: [facility] Address: [facility] [place] [address] Performed By: #### 2 4323-8, 8 #### [facility] CLIA [id number] [address] [address] [place] Endocrinology Visit Reporton 06-10-2024 Endocrinology Visit Report [facility] [address] [facility] [place] [address] OFFICE VISIT Date of Service: 06/10/24 MR#: [id number] Acct: [id number] Name: NELLA BENÍTEZ Rep #: [id number] : 1950 Provider: Michael Houston Age/Sex: 73/F Location: [facility] Status: Signed Intake Vital Signs 04/07/24 10:57 06/10/24 13:05 Height 4 ft 11 in 4 ft 11 in Weight: 145 lb 142 lb BMI 29.2 28.6 BP 129/83 H 146/88 H Blood Pressure Location Lt brachial Rt brachial Position Sitting Sitting Respiration 18 16 Pulse 82 85 Pulse Source Monitor Monitor Temp 97.3 F L Temp Source Temporal Pulse Oximetry (%) 95 96 Oxygen Delivery Method room air Intake Visit Reasons: Osteoporosis Chief Complaint: diarrhea Allergies latex Allergy (Verified 04/11/24 11:14) COUGHING AND SORE THROAT Medications ???Medication ???Instructions ???Recorded ???Confirmed ???Type citalopram 40 mg tablet 40 mg PO QHS depression 09/24/16 06/10/24 History levothyroxine 50 mcg tablet 50 mcg PO DAILY thyroid 09/24/16 06/10/24 History pantoprazole 40 mg tablet,delayed 40 mg PO BID gerd 09/24/16 06/10/24 History release tizanidine 4 mg tablet 4 mg PO QHS muscle spasms 09/28/18 06/10/24 History cholecalciferol (vitamin D3) 125 125 mcg PO DAILY 01/31/21 06/10/24 History mcg (5,000 unit) tablet meloxicam 15 mg tablet 15 mg PO DAILY 11/14/22 06/10/24 History bupropion HCl 150 mg tablet,12 hr 150 mg PO BID 04/01/23 06/10/24 History sustained-release sucralfate 100 mg/mL oral 10 ml PO BID #1,000 mL 09/07/23 06/10/24 Rx suspension (Carafate) fexofenadine 180 mg tablet 180 mg PO DAILY 01/06/24 06/10/24 History (Allergy Relief (fexofenadine)) lisinopril 2.5 mg tablet 2.5 mg PO DAILY #90 tabs 04/07/24 06/10/24 Rx abaloparatide (Tymlos) 80 mcg (0.04 mL) subcut DAILY 06/10/24 06/10/24 Rx #1.56 mL acetaminophen 650 mg 1,300 mg PO Q12H PRN Pain 06/10/24 06/10/24 History tablet,extended release lorazepam 1 mg tablet (Ativan) 1 mg PO BID PRN anxiety 06/10/24 History Have you fallen in the past year?: No PFSH Medical History Vitamin D deficiency History of Clostridium difficile infection Cancer Thyroid disease Osteoarthritis High cholesterol Injury of back History of hiatal hernia History of IBS Non-smoker Leg cramps History of echocardiogram History of stress test Cardiology follow-up encounter Medullary sponge kidney Internal hemorrhoids Fibromyalgia GERD (gastroesophageal reflux disease) Dysmetabolic syndrome Diverticulosis Cervical disc herniation Anxiety Allergic rhinitis Bloating Epigastric pain Fracture of talus of left ankle, closed Left ankle strain Acute right flank pain Closed fracture of left proximal humerus History of cataract History of gastroesophageal reflux (GERD) Sacro-iliac pain Paroxysmal SVT (supraventricular tachycardia) Essential (primary) hypertension Depression Osteoporosis Hypothyroidism Hyperlipidemia Surgical History History of bladder surgery History of stem cell transplant History of left oophorectomy History of radiofrequency ablation procedure for cardiac arrhythmia (08/07/21) History of lumbar laminectomy (09/2019) History of total left hip arthroplasty History of cataract extraction History of bunionectomy History of bladder suspension procedure History of appendectomy History of hysterectomy History of right oophorectomy Family History Father , Age 43 Hodgkins disease Sister Osteoporosis Mother Myocardial infarction Other Hypertension Social History household members: spouse Smoking Status: Never smoker alcohol intake: current alcohol intake frequency: holidays/special occasions only Alcohol type: wine substance use type: does not use caffeine: Yes Type: coffee Number of servings: 2 what type of physical activity do you participate in: none HPI HPI NELAL BENÍTEZ, is a 73 F who presents to the office today for evaluation and management. Fractures: 1 left proximal humerus (fall) 2. Left ankle (fall) 2020 She tripped for the shoulder, shoes stuck to the floor for ankle. She also has 3-4 compression fractures of her spine. She took Prolia 4 years ago, and only took 2 or 3. This was followed by one infusion of Reclast. This was before 2020. She was on estrogen for about 20 years following a hysterectomy. Mom had a hip fracture. No tobacco. No alcohol. Current Symptoms: presents with loss of height (3 inches), heartburn and unsteady gait/balance (scoliosis); denies dysph (more content not included)... [facility] [facility] -------- NELLA BENÍTEZ ([id number]) 1950 F Date Time Provider Department 06/07/24 1:00 PM ABNER DENNY INTMWS During your visit today, we recorded the following information about you: Pulse Blood pressure Weight 87/minute 150/92 64.2 kg Abner Denny APRN.MASTER [employer] TECHNICIAN 06/07/2024 1:17 PM Signed SUBJECTIVE Nella Benítez is a 73 year old female here today for acute problems. Chief Complaint Patient presents with: Sore Throat: 4-5 weeks has noticed blisters in mouth has noticed post nasal drip and feels nauseated. 04/30/24 did test + for COVID as of today is testing negative. Continues with body aches and headaches HPI Nella Benítez is a 73 year old female. She is an established patient of Eunice Joe MD. Here today for concerns of not feeling well. Has had symptoms of sore throat for 4-5 weeks, post-nasal drip, nausea, body aches and headaches. She had a positive home COVID test 04/30, tested today and is negative but just not feeling well. Symptoms have never fully resolved from being sick in April. Had tooth extracted 03/29, was on Augmentin. Traveled on 04/18 to [place]. Took a zpack for COVID pneumonia. Her medications were reviewed today and her list is now up to date. Medications Current Outpatient Medications Medication Sig lisinopril 2.5 mg tablet Take 2.5 mg by mouth once daily. LORazepam (ATIVAN) 1 mg tablet Take 1 tablet by mouth daily at bedtime. May also take 1 tablet once daily as needed for anxiety. Do all this for 30 days. (documentation that RX filled in April; tried to send another RX for 2 more months but denied at pharmacy). citalopram (CELEXA) 40 mg tablet Take 1 tablet by mouth once daily. meloxicam (MOBIC) 15 mg tablet Take 1 tablet by mouth once daily. Take with food. pantoprazole DR (PROTONIX) 40 mg tablet Take 1 tablet by mouth two times a day. As directed levothyroxine (SYNTHROID) 50 mcg tablet Take 1 tablet by mouth once daily. Cholecalciferol, Vitamin D3, 125 mcg (5,000 unit) cap Take 1 capsule by mouth once daily. sucralfate (CARAFATE) 1 gram tablet Take 1 tablet by mouth four times daily. As directed for flare ups. May dissolve in 1 to 2 teaspoons of water then swallow. buPROPion SR (WELLBUTRIN SR) 150 mg 12 hr tablet Take 1 tablet by mouth once daily. busPIRone (BUSPAR) 15 mg tablet Take 1.5 tablets by mouth two times a day. acetaminophen (TYLENOL 8 HOUR) 650 mg CR tablet Take 2 tablets by mouth every 8 hours as needed for pain. (try this one) tiZANidine (ZANAFLEX) 4 mg tablet Take 1 tablet by mouth twice daily as needed. calcium carbonate 600 mg-cholecalciferol 200 units (CALCIUM 600 + D,3,) 600 mg(1,500mg) -200 unit tab Take 1 tablet by mouth twice daily. Calcium viactive chewable fexofenadine (ALVINA) 180 mg tablet Take 180 mg by mouth once daily. doxycycline (VIBRA-TABS) 100 mg tablet Take 1 tablet by mouth two times a day for 10 days. CPAP/BIPAP/OTHER autoCPAP 5-15 cmH2O [facility] [employer] metoprolol succinate 25 mg CSpX Take 12.5 mg by mouth once daily. (Patient not taking: Reported on 06/07/2024) No current facility-administered medications for this visit. ALLERGIES Allergen Reactions Latex Rash, Itching Actonel [Risedronat* GI Upset Fosamax [Alendronat* GI Upset ACTIVE PROBLEM LIST Chintan (Obstructive Sleep Apnea) - 03/25/2024 Stage 3a Chronic Kidney Disease ([facility]) - 02/04/2023 Paroxysmal Svt (Supraventricular Tachycardia) ([facility]) - 02/04/2023 Essential Hypertension - 09/14/2021 Comment: Higher than usual today--attributed to persistent severe pain from comrpression fractures. 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 Hypothyroidism - 08/31/2013 Si (Sacroiliac) Joint Dysfunction - 11/03/2011 Diarrhea - 01/02/2010 Diverticulosis of Colon (Without Mention of Hemorrhage) - 01/02/2010 Internal Hemorrhoids Without Mention of Complication - 01/02/2010 External Hemorrhoids Without Mention of Complication - 01/02/2010 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 Spouse non-smoker. Vaping Use Vaping status: Never Used (more content not included)... Normal [facility] Absolute lymphocyte countOrd ered By: Rojas Trinh on 09-07-2023 Lymphocytes Auto (Unsp spec) [#/Vol] 1.29 10*3/uL 0.83-4.51 [facility] Basophil percentageOrdered B y: Rojas Trinh on 09-07-2023 Basophil percentage 0 SEEN /hpf 0-5 [facility] Basophils/100 WBC (Bld) 0.9 % 0-1 [facility] Bilirubin [Mass/Vol] 0.40 mg/dL 0.20-1.00 [facility] Comment on above: For patients on eltr ombopag therapy, use of Dimension [place] TBIL is not recommended. Chloride [Moles/Vol] 106 mmol/L 98-107 [facility] Eosinophils/100 WBC (Bld) 2.0 % 0-5 [facility] Glucose [Mass/Vol] 98 mg/dL 74-106 [facility] Neutrophils (Bld) [#/Vol] 4.9 10*3/uL 2.0-7.7 [facility] Neutrophils/100 WBC (Bld) 70.5 % 47-70 [facility] Potassium [Moles/Vol] 3.6 mmol/L 3.5-5.1 [facility] Protein [Mass/Vol] 6.5 g/dL 6.4-8.2 [facility] Sodium [Moles/Vol] 138 mmol/L 136-145 [facility] WBC (Bld) [#/Vol] 6.9 10*3/uL 4.4-11.0 [facility] Bilirubin Test strip Ql (U)O rdered By: Rojas Trinh on 09-07-2023 Bilirubin Ql (U) Negative Negative [facility] Blood erythrocytes count (nu mber/volume)Ordered By: Rojas Trinh on 09-07-2023 RBC (Bld) [#/Vol] 3.99 10*6/uL 4.2-5.4 [facility] Blood hemoglobin measurement (mass/volume)Ordered By: Rojas Trinh on 09-07-2023 Hemoglobin (Bld) [Mass/Vol] 11.3 g/dL 12.0-15.0 [facility] Blood lymphocytes/100 leukoc ytesOrdered By: Rojas Trinh on 09-07-2023 Lymphocytes/100 WBC (Bld) 18.6 % 19-41 [facility] Blood monocytes/100 leukocyt esOrdered By: Rojas Trinh on 09-07-2023 Monocytes/100 WBC (Bld) 7.6 % 0-10 [facility] Blood platelet mean volumeOr dered By: Rojas Trinh on 09-07-2023 Platelet mean volume (Bld) [Entitic vol] 9.0 fL 6.2-12.0 [facility] Determination of erythrocyte mean corpuscular volume (MCV)Ordered By: Rojas Trinh on 09-07-2023 MCV (RBC) [Entitic vol] 92.5 fL 81-99 [facility] Hematocrit Auto (Bld) [Volum e fraction]Ordered By: Rojas Trinh on 09-07-2023 Hematocrit (Bld) [Volume fraction] 36.9 % 37-47 [facility] Ketones Test strip Ql (U)Ord ered By: Rojas Trinh on 09-07-2023 Ketones Ql (U) Negative Negative [facility] Laboratory - Chemistry and C hemistry - challengeOrdered By: Rojas Trinh on 09-07-2023 ALP [Catalytic activity/Vol] 67 U/L 45-117 [facility] ALT [Catalytic activity/Vol] 16 U/L 13-56 [facility] CO2 [Moles/Vol] 29.0 mmol/L 21.0-32.0 [facility] Globulin (S) [Mass/Vol] 3.2 g/dL 2.2-4.2 [facility] Lipase [Catalytic activity/Vol] 27 U/L 13-75 [facility] Comment on above: Please note:LIPASE r evised reference range effective 23. New Lipase methodology. Expected to produce lower values than the previous assay method. NEW Reference Range: 13 - 75 U/L Urea nitrogen/Creatinine [Mass ratio] 8.9 mg/mg 10-20 [facility] - Hematology and Cell countsOrdered By: Rojas Trinh on 09-07-2023 Erythrocyte distribution width (RBC) [Entitic vol] 47.8 fL 35.1-43.9 [facility] Erythrocyte distribution width (RBC) [Ratio] 14.0 % 11.6-14.6 [facility] Immature granulocytes/100 WBC (Bld) 0.400 % 0.0-0.9 [facility] Comment on above: IG% - Immature Granu locytes (promyelocytes, myelocytes and metamyelocytes) > 1% indicates that a LEFT SHIFT is Present. MCH (RBC) [Entitic mass] 28.3 pg 27.0-32.0 [facility] Nucleated RBC/100 WBC (Bld) [Ratio] 0 % 0-5 [facility] MCHC Auto (RBC) [Mass/Vol]Or dered By: Rojas Trinh on 09-07-2023 MCHC (RBC) [Mass/Vol] 30.6 g/dL 32-36 [facility] Mucus LM Ql (Urine sed)Order ed By: Rojas Trinh on 09-07-2023 Mucus Ql (Urine sed) 0 SEEN /hpf [facility] Nitrite Test strip Ql (U)Ord ered By: Rojas Trinh on 09-07-2023 Nitrite Ql (U) Negative Negative [facility] No Panel InformationOrdered By: Rojas Trinh on 09-07-2023 Estimated Creatinine Clearance Calc 57.80 ml/min [facility] Estimated GFR (MDRD) Amer 79 mL/min >60 [facility] Comment on above: GFR Calc Estimated GFR (MDRD) Non-Af Amer 66 mL/min >60 [facility] Comment on above: Non- GFR Calc Platelets bldOrdered By: Sandra Trinh on 09-07-2023 Platelets (Bld) [#/Vol] 375 10*3/uL 150-450 [facility] Protein Test strip Ql (U)Ord ered By: Rojas Trinh on 09-07-2023 Protein Ql (U) Negative Negative [facility] Serum or plasma albumin ely urement (mass/volume)Ordered By: Rojas Trinh on 09-07-2023 Albumin [Mass/Vol] 3.3 g/dL 3.2-5.0 [facility] Serum or plasma albumin/glob ulin mass ratioOrdered By: Rojas Trinh on 09-07-2023 Albumin/Globulin [Mass ratio] 1.0 {ratio} 0.9-2.4 [facility] Serum or plasma calcium ely urement (mass/volume)Ordered By: Rojas Trinh on 09-07-2023 Calcium [Mass/Vol] 8.7 mg/dL 8.5-10.1 [facility] Serum or plasma creatinine m easurement (mass/volume)Ordered By: Rojas Trinh on 09-07-2023 Creatinine [Mass/Vol] 0.90 mg/dL 0.55-1.02 [facility] Comment on above: The validity of the calculated GFR & GFRAA in patients over 70 years has not been determined. Clinical correlation is essential. Serum or plasma urea nitroge n measurement (mass/volume)Ordered By: Rojas Trinh on 09-07-2023 Urea nitrogen [Mass/Vol] 8 mg/dL 7-18 [facility] Squamous epithelial cells de tection in urine sediment by light microscopyOrdered By: Rojas Trinh on 09-07-2023 Epithelial cells.squamous LM Ql (Urine sed) 0-5 SEEN /hpf 5-10 [facility] Thin prep Papanicolaou smear with manual screeningOrdered By: Rojas Trinh on 09-07-2023 Thin prep Papanicolaou smear with manual screening 13 U/L 15-37 [facility] Thin prep Papanicolaou smear with manual screening 3 5-15 [facility] Urine blood detectionOrdered By: Rojas Trinh on 09-07-2023 RBC Ql (U) Negative Negative [facility] RBC Ql (U) 0 SEEN /hpf 0-5 [facility] Urine clarityOrdered By: Sandra Trinh on 09-07-2023 Clarity (U) Sl. Cloudy Clear [facility] Urine color determinationOrd ered By: Rojas Trinh on 09-07-2023 Color (U) Yellow Yellow [facility] Urine glucose detectionOrder ed By: Rojas Trinh on 09-07-2023 Glucose Ql (U) Normal mg/dl Normal [facility] Urine leukocyte esterase det ection by dipstickOrdered By: Rojas Trinh on 09-07-2023 Leukocyte esterase Test strip Ql (U) Negative Negative [facility] Urine pHOrdered By: Rojas singh on 09-07-2023 pH (U) 7.0 [pH] 5.0 - 8.0 [facility] Urine sediment bacteria coun t by microscopy (number/high power field)Ordered By: Rojas rTinh on 09-07-2023 Bacteria LM.HPF (Urine sed) [#/Area] 0 /[HPF] None Seen [facility] Urine specific gravity measu rementOrdered By: Rojas Trinh on 09-07-2023 Specific gravity (U) [Rel density] 1.005 1.002-1.03 0 [facility] Urobilinogen Auto test strip Ql (U)Ordered By: Rojas Trinh on 09-07-2023 Urobilinogen Ql (U) Normal mg/dl Normal [facility] Non-Clinical Counselor Cytology Reporton Non-Clinical Counselor Cytology Report . Pathology Reports Accession: Collected Date/Time: Received Date/Time: Pathologist: [id number] 06/01/2023 12:45 EDT 06/02/2023 08:56 EDT NISHA ELIZONDO MD Non-Clinical Counselor Cytology Report CLINICAL INFORMATION: Bladder Cancer DIAGNOSTIC CATEGORY: ATYPICAL UROTHELIAL CELLS. SPECIMEN: URINE GROSS DESCRIPTION: # of Monolayers: 1 Volume (ml) 90 Color: fixed clear yellow SUGGESTION/EDUCATIONAL NOTES: This sample was evaluated using standardized diagnostic criteria published in the '[employer] System for Reporting Urinary Cytology '(TPS), Second edition, 2021. The following Risk of High-grade urothelial carcinoma is based on published data from TPS. Individual institutional rates may vary. TPS Cytology Diagnostic category Risk of high-grade malignancy Non diagnostic 0-16% Negative for High grade urothelial carcinoma 8-24% Low grade urothelial neoplasm 0-44% Atypical Urothelial cells 24-53% Suspicious for High grade urothelial carcinoma 59-94% Malignant- High grade urothelial carcinoma 76-100% Electronically Signed by Pathology Report verified by [facility] Screened by: YAMILE HI Electronically signed by NISHA ELIZONDO Sign-Out Date: 06/03/2023 11:38 Performing Lab: [facility], [address] [place] [address] Pathology Dept Disclaimer If ancillary studies were utilized, the following Laboratory Developed Test (LDT) disclaimer will apply: Under CLIA requirements, [facility] Pathology Laboratory is qualified to perform high complexity testing. For all ancillary stains, positive and negative controls stain appropriately. Performance characteristics of immunohistochemical and chromogenic in-situ hybridization tests have been determined by [facility] Pathology Laboratory. These tests are used for clinical purposes, They should not be regarded as investigational or for research. Normal [facility] ([place]) XR Hand - bilateral PA and L ateral and Obliqueon 05-01-2023 IMPRESSION: Bone demineralization and osteoarthrosis Guest Attendant: YAMILETH Transcribe Date/Time: May 01 2023 8:07A Dictated by : ERIC VINSON MD This examination was interpreted and the report reviewed and electronically signed by: ERIC VINSON MD on May 01 2023 8:09AM [facility] * * *Final Report* * * DATE OF EXAM: Apr 29 2023 11:12AM [facility] 5556 - XR HAND 3V PA/LAT/OBL ELLIS / PROCEDURE REASON: multiple diagnoses * * * * Physician Interpretation * * * * PROCEDURE: Bilateral hands INDICATION: Bilateral hand pain TECHNIQUE: XR HAND 3V PA/LAT/OBL ELLIS COMPARISON: None FINDINGS: Diffuse osteopenia/osteoporosis. No acute fracture or dislocation. 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 No erosions or focal soft tissue swelling. Dystrophic calcification in the soft tissues at the base of the left thumb. [facility] Provider, Do Luiza Jin - 05/01/2023 * * *Final Report* * * DATE OF EXAM: Apr 29 2023 11:12AM [facility] 5556 - XR HAND 3V PA/LAT/OBL ELLSI / PROCEDURE REASON: multiple diagnoses * * * * Physician Interpretation * * * * PROCEDURE: Bilateral hands INDICATION: Bilateral hand pain TECHNIQUE: XR HAND 3V PA/LAT/OBL ELLIS COMPARISON: None FINDINGS: Diffuse osteopenia/osteoporosis. No acute fracture or dislocation. 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 No erosions or focal soft tissue swelling. Dystrophic calcification in the soft tissues at the base of the left thumb. IMPRESSION IMPRESSION: Bone demineralization and osteoarthrosis Guest Attendant: YAMILETH Transcribe Date/Time: May 01 2023 8:07A Dictated by : ERIC VINSON MD This examination was interpreted and the report reviewed and electronically signed by: ERIC VINSON MD on May 01 2023 8:09AM EST [facility] XR Hand - bilateral PA and L ateral and ObliqueOrdered By: Ccf Provider on 05-01-2023 [facility] XR HAND 3V PA/LAT/OBL BILon 04-29-2023 XR HAND 3V PA/LAT/OBL ELLIS * * *Final Rep ort* * * DATE OF EXAM: Apr 29 2023 11:12AM [facility] 5556 - XR HAND 3V PA/LAT/OBL ELLIS / PROCEDURE REASON: multiple diagnoses * * * * Physician Interpretation * * * * PROCEDURE: Bilateral hands INDICATION: Bilateral hand pain TECHNIQUE: XR HAND 3V PA/LAT/OBL ELLIS COMPARISON: None FINDINGS: Diffuse osteopenia/osteoporosis. No acute fracture or dislocation. 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 No erosions or focal soft tissue swelling. Dystrophic calcification in the soft tissues at the base of the left thumb. IMPRESSION: Bone demineralization and osteoarthrosis Guest Attendant: YAMILETH Transcribe Date/Time: May 01 2023 8:07A Dictated by : ERIC VINSON MD This examination was interpreted and the report reviewed and electronically signed by: ERIC VINSON MD on May 01 2023 8:09AM EST [id number] Hand - bilateral PA and L ateral and Obliqueon 04-29-2023 Radiology Study observation (narrative) [facility] Influenza virus A and B RNA and SARS-CoV-2 (COVID-19) N gene panel LEEANNE+probe (Resp)on 03-26-2023 FLUAV RNA LEEANNE+probe Ql (Unsp spec) Not detected Not Detected [facility] FLUBV RNA LEEANNE+probe Ql (Unsp spec) Not detected Not Detected [facility] SARS-CoV-2 (COVID-19) RNA LEEANNE+probe Ql (Resp) Not detected See comment [facility] STREP A MOLECULAR (POC)on Procedural Control Valid [facility] Strep A (POCT) Negative Negative [facility] Final Surgical Pathology Rep johnathan 02-12-2023 Final Surgical Pathology Report . 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 Received in formalin, labeled with the patients name, Case #[id number], and "bladder tumor "are multiple king-pink hemorrhagic tissue fragments aggregating to 3 x 2 x 0.2 cm. TS -2 Dictated by GEORGE MAURICIO MICROSCOPIC DESCRIPTION: The microscopic examination is performed, except in the case of Gross Only. Electronically Signed by Pathology Report verified by [facility] NISHA ELIZONDO Sign out Date: 02/12/2023 10:19 Performing Lab: [address] Pathology Dept Normal [facility] ([place]) .Auto Diffon 02-04-2023 Basophil, Absolute 0.1 10 3/mcL Normal 0.0-0.3 [facility] ([place]) Comment on above: Performed By: #### B MP, CBC, ADIFF, GFR, ANEU #### [address] [address] Basophils/100 WBC (Bld) 1.3 % Normal 0.0-2.5 A [facility] ([place]) Comment on above: Performed By: #### B MP, CBC, ADIFF, GFR, ANEU #### [address] [address] Eosinophil, Absolute 0.1 10 3/mcL Normal 0.0-0.7 [facility] ([place]) Comment on above: Performed By: #### B MP, CBC, ADIFF, GFR, ANEU #### [address] [address] Eosinophils/100 WBC (Bld) 1.2 % Normal 0.0-6.0 [facility] ([place]) Comment on above: Performed By: #### B MP, CBC, ADIFF, GFR, ANEU #### [address] [address] Lymphocyte, Absolute 1.3 10 3/mcL Normal 0.9-4.3 [facility] ([place]) Comment on above: Performed By: #### B MP, CBC, ADIFF, GFR, ANEU #### [address] [address] Lymphocytes/100 WBC (Bld) 25.5 % Normal 20.0-40.0 [facility] ([place]) Comment on above: Performed By: #### B MP, CBC, ADIFF, GFR, ANEU #### [address] [address] Monocyte, Absolute 0.4 10 3/mcL Normal 0.1-1.4 [facility] ([place]) Comment on above: Performed By: #### B MP, CBC, ADIFF, GFR, ANEU #### [address] [address] Monocytes/100 WBC (Bld) 7.2 % Normal 2.0-13.0 [facility] ([place]) Comment on above: Performed By: #### B MP, CBC, ADIFF, GFR, ANEU #### [address] [address] Neutrophils/100 WBC (Bld) 64.8 % Normal 50.0-75.0 [facility] ([place]) Comment on above: Performed By: #### B MP, CBC, ADIFF, GFR, ANEU #### [address] [address] .GFRon 02-04-2023 GFR 60 ml/min/1.73sqm Normal [facility] ([place]) Comment on above: Result Comment: GFR Population mean for , Non- Americans Ages 20-29 = 116 mL/min/1.73 sq.m. Ages 30-39 = 107 mL/min/1.73 sq.m. Ages 40-49 = 99 mL/min/1.73 sq.m. Ages 50-59 = 93 mL/min/1.73 sq.m. Ages 60-69 = 85 mL/min/1.73 sq.m. Ages 70+ = 75 mL/min/1.73 sq.m. Chronic Kidney Disease: Less than 60 mL/min/1.73 square meters End Stage Renal Disease: Less than 15 mL/min/1.73 square meters Performed By: #### B MP, CBC, ADIFF, GFR, ANEU #### [address] [address] GFR Non- 50 ml/min/1.73sqm Normal [facility] ([place]) Comment on above: Result Comment: GFR Population mean for , Non- Americans Ages 20-29 = 116 mL/min/1.73 sq.m. Ages 30-39 = 107 mL/min/1.73 sq.m. Ages 40-49 = 99 mL/min/1.73 sq.m. Ages 50-59 = 93 mL/min/1.73 sq.m. Ages 60-69 = 85 mL/min/1.73 sq.m. Ages 70+ = 75 mL/min/1.73 sq.m. Chronic Kidney Disease: Less than 60 mL/min/1.73 square meters End Stage Renal Disease: Less than 15 mL/min/1.73 square meters Performed By: #### B MP, CBC, ADIFF, GFR, ANEU #### [address] [address] .NEUABSon 02-04-2023 Neutrophil, Absolute 3.4 10 3/mcL Normal 2.3-8.1 [facility] ([place]) Comment on above: Performed By: #### B MP, CBC, ADIFF, GFR, ANEU #### [address] [address] BMPon 02-04-2023 BUN/Creatinine Ratio 10.2 ratio Normal 10.0-22.0 [facility] ([place]) Comment on above: Performed By: #### B MP, CBC, ADIFF, GFR, ANEU #### [address] [address] Calcium [Mass/Vol] 9.7 mg/dL Normal 8.7-10.4 [facility] ([place]) Comment on above: Performed By: #### B MP, CBC, ADIFF, GFR, ANEU #### [address] [address] Chloride [Moles/Vol] 105 mmol/L Normal 98-110 [facility] ([place]) Comment on above: Performed By: #### B MP, CBC, ADIFF, GFR, ANEU #### [address] [address] CO2 [Moles/Vol] 29 mmol/L Normal 22-32 [facility] ([place]) Comment on above: Performed By: #### B MP, CBC, ADIFF, GFR, ANEU #### [address] [address] Creatinine [Mass/Vol] 1.08 mg/dL Normal 0.50-1.20 [facility] ([place]) Comment on above: Performed By: #### B MP, CBC, ADIFF, GFR, ANEU #### [address] [address] Electrolyte Balance 4.0 mEq/L Normal 4.0-15.0 [facility] ([place]) Comment on above: Performed By: #### B MP, CBC, ADIFF, GFR, ANEU #### [address] [address] Glucose [Mass/Vol] 85 mg/dL Normal 82-115 [facility] ([place]) Comment on above: Performed By: #### B MP, CBC, ADIFF, GFR, ANEU #### [address] [address] Potassium [Moles/Vol] 4.8 mmol/L Normal 3.5-5.0 [facility] ([place]) Comment on above: Performed By: #### B MP, CBC, ADIFF, GFR, ANEU #### [address] [address] Sodium [Moles/Vol] 138 mmol/L Normal 136-145 [facility] ([place]) Comment on above: Performed By: #### B MP, CBC, ADIFF, GFR, ANEU #### [address] [address] Urea nitrogen [Mass/Vol] 11.0 mg/dL Normal 8.0-22.0 [facility] ([place]) Comment on above: Performed By: #### B MP, CBC, ADIFF, GFR, ANEU #### [place] [id number] CBCon 02-04-2023 Erythrocyte distribution width (RBC) [Ratio] 14.4 % Normal 11.5-15.5 [facility] ([place]) Comment on above: Performed By: #### B MP, CBC, ADIFF, GFR, ANEU #### [place] [address] Hematocrit (Bld) [Volume fraction] 38.1 % Normal 34.0-46.0 [facility] ([place]) Comment on above: Performed By: #### B MP, CBC, ADIFF, GFR, ANEU #### [place] [address] Hgb 12.3 G/dL Normal 12.0-16.0 [facility] ([place]) Comment on above: Performed By: #### B MP, CBC, ADIFF, GFR, ANEU #### [place] [address] MCH (RBC) [Entitic mass] 29.2 pg Normal 27.0-33.0 [facility] ([place]) Comment on above: Performed By: #### B MP, CBC, ADIFF, GFR, ANEU #### [place] [address] MCHC 32.2 G/dL Normal 32.0-36.0 [facility] ([place]) Comment on above: Performed By: #### B MP, CBC, ADIFF, GFR, ANEU #### [place] [address] MCV (RBC) [Entitic vol] 90.7 fL Normal 80.0-99.0 [facility] ([place]) Comment on above: Performed By: #### B MP, CBC, ADIFF, GFR, ANEU #### [place] [address] Platelet 348 10 3/mcL Normal 150-450 [facility] ([place]) Comment on above: Performed By: #### B MP, CBC, ADIFF, GFR, ANEU #### [place] [address] Platelet mean volume (Bld) [Entitic vol] 7.5 fL Normal 6.6-10.5 [facility] ([place]) Comment on above: Performed By: #### B MP, CBC, ADIFF, GFR, ANEU #### [place] [address] RBC 4.21 10 6/mcL Normal 4.10-5.30 [facility] ([place] Comment on above: Performed By: #### B MP, CBC, ADIFF, GFR, ANEU #### [place] [address] WBC 5.2 10 3/mcL Normal 4.5-10.8 [facility] ([place]) Comment on above: Performed By: #### B MP, CBC, ADIFF, GFR, ANEU #### [place] [address] LABORATORYOrdered By: SYSTEM SYSTEM on 02-04-2023 Basophils (Bld) [#/Vol] 0.1 103/mcL Invalid Interpretation Code 0.0 - 0.3 10^3/mcL Workflow SS Basophils/100 WBC (Bld) 1.3 % Invalid Interpretation Code 0.0 - 2.5 % Workflow SS Calcium [Mass/Vol] 9.7 mg/dL Invalid Interpretation Code 8.7 - 10.4 mg/dL ADM SS Chloride [Moles/Vol] 105 mmol/L Invalid Interpretation Code 98 - 110 mEq/L ADM SS CO2 [Moles/Vol] 29 mmol/L Invalid Interpretation Code 22 - 32 mEq/L ADM SS Creatinine [Mass/Vol] 1.08 mg/dL Invalid Interpretation Code 0.50 - 1.20 mg/dL ADM SS Electrolyte Balance 4.0 mEq/L Invalid Interpretation Code 4.0 - 15.0 mEq/L ADM SS Eosinophils (Bld) [#/Vol] 0.1 103/mcL Invali d Interpretation Code 0.0 - 0.7 10^3/mcL AH Workflow SS Eosinophils/100 WBC (Bld) 1.2 % Invali d Interpretation Code 0.0 - 6.0 % AH Workflow SS Erythrocyte distribution width (RBC) [Ratio] 14.4 % Invalid Interpretation Code 11.5 - 15.5 % AH Workflow SS GFR/1.73 sq M.predicted among blacks MDRD (S/P/Bld) [Vol rate/Area] 60 ml/min/1.73sqm Invalid Interpretation Code Chemistry S GFR/1.73 sq M.predicted among non-blacks MDRD (S/P/Bld) [Vol rate/Area] 50 ml/min/1.73sqm Invalid Interpretation Code Chemistry S Glucose [Mass/Vol] 85 mg/dL Invalid Interpretation Code 82 - 115 mg/dL ADM SS Hematocrit (Bld) [Volume fraction] 38.1 % Invalid Interpretation Code 34.0 - 46.0 % Workflow SS Hemoglobin (Bld) [Mass/Vol] 12.3 G/dL Invalid Interpretation Code 12.0 - 16.0 G/dL Workflow SS Lymphocytes (Bld) [#/Vol] 1.3 103/mcL Invali d Interpretation Code 0.9 - 4.3 10^3/mcL Workflow SS Lymphocytes/100 WBC (Bld) 25.5 % Invali d Interpretation Code 20.0 - 40.0 % AH Workflow SS MCH (RBC) [Entitic mass] 29.2 pg Invalid Interpretation Code 27.0 - 33.0 pg AH Workflow SS MCHC 32.2 G/dL Invalid Interpretation Code 32.0 - 36.0 G/dL AH Workflow SS MCV (RBC) [Entitic vol] 90.7 fL Invalid Interpretation Code 80.0 - 99.0 fL Workflow SS Monocytes (Bld) [#/Vol] 0.4 103/mcL Invalid Interpretation Code 0.1 - 1.4 10^3/mcL Workflow SS Monocytes/100 WBC (Bld) 7.2 % Invalid Interpretation Code 2.0 - 13.0 % Workflow SS Neutrophils (Bld) [#/Vol] 3.4 103/mcL Invali d Interpretation Code 2.3 - 8.1 10^3/mcL Workflow SS Neutrophils/100 WBC (Bld) 64.8 % Invali d Interpretation Code 50.0 - 75.0 % Workflow SS Platelet mean volume (Bld) [Entitic vol] 7.5 fL Invalid Interpretation Code 6.6 - 10.5 fL AH Workflow SS Platelets (Bld) [#/Vol] 348 103/mcL Invalid Interpretation Code 150 - 450 10^3/mcL AH Workflow SS Potassium [Moles/Vol] 4.8 mmol/L Invalid Interpretation Code 3.5 - 5.0 mEq/L AH ADM SS RBC (Bld) [#/Vol] 4.21 106/mcL Invalid Interpretation Code 4.10 - 5.30 10^6/mcL Workflow SS Sodium [Moles/Vol] 138 mmol/L Invalid Interpretation Code 136 - 145 mEq/L AH ADM SS Urea nitrogen [Mass/Vol] 11.0 mg/dL Invalid Interpretation Code 8.0 - 22.0 mg/dL AH ADM SS Urea nitrogen/Creatinine [Mass ratio] 10.2 ratio Invalid Interpretation Code 10.0 - 22.0 ratio AH ADM SS WBC (Bld) [#/Vol] 5.2 103/mcL Invalid Interpretation Code 4.5 - 10.8 10^3/mcL Workflow SS Clostridium difficile detect ion by polymerase chain reactionOrdered By: Ruth Dukes on 01-31-2023 C. difficile DNA LEEANNE+probe Ql (Unsp spec) [facility] No Panel InformationOrdered By: Ruth Dukes on 01-31-2023 Miscellaneous Test See comment [facility] Comment on above: TEST RESULTS LIMITSS almonella/Shigella Final report Result 1 No Salmonella or Shigella recoveredCampylobacter Culture Final report Result 1 No Campylobacter species isolatedE coli Shiga Toxin EIA Negative Negative TESTING PERFORMED AT [facility]. ORIGINAL REPORT ON FILE IN LAB CONTAINS ADDITIONAL TEST SITE INFORMATION. Stool Clostridium difficile detectionOrdered By: Ruth Dukes on 01-31-2023 C. difficile Ql (Stl) [facility] Stool lactoferrin detection by immunoassayOrdered By: Ruth Dukes on 01-31-2023 Lactoferrin IA Ql (Stl) [facility] Absolute lymphocyte countOrd ered By: Ruth Dukes on 01-28-2023 Lymphocytes Auto (Unsp spec) [#/Vol] 1.93 10*3/uL 0.83-4.51 [facility] Atypical perinuclear antineu trophil cytoplasmic antibodies measurementOrdered By: Ruth Dukes on 01-28-2023 Neutrophil cytoplasmic Ab.perinuclear.atypical IF (S) [Titer] 1:40 titer Neg:<1:20 [facility] Comment on above: The atypical pANCA p attern has been observed in asignificant percentage of patients with ulcerative colitis,primary sclerosing cholangitis and autoimmune hepatitis.Performed at: - [facility] [id number] Director: Veto Raines PhD, Phone: [phone] at: - [facility] [id number] Director: Luis A Mon MD, Phone: [phone] Basophil percentageOrdered B y: Ruth Dukes on 01-28-2023 Basophil percentage < 0.2 AI 0.0-0.9 [facility] Basophils/100 WBC (Bld) 1.2 % 0-1 [facility] Bilirubin [Mass/Vol] 0.30 mg/dL 0.20-1.00 [facility] Comment on above: For patients on eltr ombopag therapy, use of Dimension [place] TBIL is not recommended. Chloride [Moles/Vol] 104 mmol/L 98-107 [facility] Eosinophils/100 WBC (Bld) 1.3 % 0-5 [facility] Glucose [Mass/Vol] 101 mg/dL 74-106 [facility] Comment on above: Fasting Glucose resu lt from 100 to 125 mg/dL suggests IMPAIRED HOMEOSTASIS per A.D.A. criteria. LDH [Catalytic activity/Vol] 163 U/L 84-246 [facility] Neutrophils (Bld) [#/Vol] 4.9 10*3/uL 2.0-7.7 [facility] Neutrophils/100 WBC (Bld) 65.0 % 47-70 [facility] Potassium [Moles/Vol] 4.1 mmol/L 3.5-5.1 [facility] Protein [Mass/Vol] 7.2 g/dL 6.4-8.2 [facility] Sodium [Moles/Vol] 134 mmol/L 136-145 [facility] WBC (Bld) [#/Vol] 7.5 10*3/uL 4.4-11.0 [facility] Blood erythrocytes count (nu mber/volume)Ordered By: Ruth Dukes on 01-28-2023 RBC (Bld) [#/Vol] 4.23 10*6/uL 4.2-5.4 [facility] Blood hemoglobin measurement (mass/volume)Ordered By: Ruth Dukes on 01-28-2023 Hemoglobin (Bld) [Mass/Vol] 12.3 g/dL 12.0-15.0 [facility] Blood lymphocytes/100 leukoc ytesOrdered By: Ruth Dukes on 01-28-2023 Lymphocytes/100 WBC (Bld) 25.6 % 19-41 [facility] Blood monocytes/100 leukocyt esOrdered By: Ruth Dukes on 01-28-2023 Monocytes/100 WBC (Bld) 6.6 % 0-10 [facility] Blood platelet mean volumeOr dered By: Ruth Dukes on 01-28-2023 Platelet mean volume (Bld) [Entitic vol] 9.9 fL 6.2-12.0 [facility] Determination of erythrocyte mean corpuscular volume (MCV)Ordered By: Ruth Dukes on 01-28-2023 MCV (RBC) [Entitic vol] 94.3 fL 81-99 [facility] Erythrocyte sedimentation ra teOrdered By: Ruth Dukes on 01-28-2023 ESR (Bld) [Velocity] 9 mm/h 0-30 [facility] Hematocrit Auto (Bld) [Volum e fraction]Ordered By: Ruth Dukes on 01-28-2023 Hematocrit (Bld) [Volume fraction] 39.9 % 37-47 [facility] Interpretation of serum or p lasma protein pattern by immunofixation (narrative resultOrdered By: Ruth Dukse on 01-28-2023 Protein Fractions Immunofixation Blayne [Interp] See comment [facility] Comment on above: NOT OBSERVED Laboratory - Chemistry and C hemistry - challengeOrdered By: Ruth Dukes on 01-28-2023 ALP [Catalytic activity/Vol] 71 U/L 45-117 [facility] ALT [Catalytic activity/Vol] 23 U/L 13-56 [facility] CO2 [Moles/Vol] 27.0 mmol/L 21.0-32.0 [facility] Urea nitrogen/Creatinine [Mass ratio] 11.3 mg/mg 10-20 [facility] Laboratory - Hematology and Cell countsOrdered By: Ruth Dukes on 01-28-2023 Erythrocyte distribution width (RBC) [Entitic vol] 47.9 fL 35.1-43.9 [facility] Erythrocyte distribution width (RBC) [Ratio] 13.8 % 11.6-14.6 [facility] Immature granulocytes/100 WBC (Bld) 0.300 % 0.0-0.9 [facility] Comment on above: IG% - Immature Granu locytes (promyelocytes, myelocytes and metamyelocytes) > 1% indicates that a LEFT SHIFT is Present. MCH (RBC) [Entitic mass] 29.1 pg 27.0-32.0 [facility] Nucleated RBC/100 WBC (Bld) [Ratio] 0.3 % 0-5 [facility] MCHC Auto (RBC) [Mass/Vol]Or dered By: Ruth Dukes on 01-28-2023 MCHC (RBC) [Mass/Vol] 30.8 g/dL 32-36 [facility] No Panel InformationOrdered By: Ruth Dukes on 01-28-2023 Addendum Document Comment . [facility] Comment on above: Protein electrophore sis scan will follow via computer,mail, or liquid sugar melter delivery. Centromere B Antibody <0.2 AI 0.0-0.9 [facility] Endomysial IgA Antibody Negative Negative [facility] Estimated GFR (MDRD) Amer 60 mL/min >60 [facility] Comment on above: GFR Calc Estimated GFR (MDRD) Non-Af Amer 49 mL/min >60 [facility] Comment on above: Non- GFR Calc Immunoglobulin E 29 IU/mL 6-495 [facility] [employer]STRUCTOR Antibody <0.2 AI 0.0-0.9 [facility] Platelets bldOrdered By: Jessica Dukes on 01-28-2023 Platelets (Bld) [#/Vol] 406 10*3/uL 150-450 [facility] Serum DNA double strand anti body assay (units/volume)Ordered By: Ruth Dukes on 01-28-2023 DNA double strand Ab Qn (S) 1 [IU]/mL 0-9 [facility] Comment on above: Negative <5 Equivoca l 5 - 9 Positive >9 Serum Jennifer-1 antibody assay (u nits/volume)Ordered By: Ruth Dukes on 01-28-2023 Jennifer-1 extractable nuclear Ab Qn (S) <0.2 AI 0.0-0.9 [facility] Serum Scl-70 extractable nuc lear antibody assay (units/volume)Ordered By: Ruth Dukes on 01-28-2023 SCL-70 extractable nuclear Ab Qn (S) <0.2 AI 0.0-0.9 [facility] Serum Espino extractable nucl ear antibody detectionOrdered By: Ruth Dukes on 01-28-2023 Espino extractable nuclear Ab Ql (S) <0.2 AI 0.0-0.9 [facility] Serum [id number] measu rement by electrophoresisOrdered By: Ruth Dukes on 01-28-2023 Alpha 1 globulin Elph [Mass/Vol] 0.2 g/dL 0.0-0.4 [facility] Alpha 1 globulin Elph [Mass/Vol] 0.8 g/dL 0.4-1.0 [facility] Serum classic neutrophil cyt oplasmic antibody assay (units/volume)Ordered By: Ruth Dukes on 01-28-2023 Neutrophil cytoplasmic Ab.classic Qn (S) <1:20 titer Neg:<1:20 [facility] Serum globulin measurement ( mass/volume)Ordered By: Ruth Dukes on 01-28-2023 Globulin (S) [Mass/Vol] 2.7 g/dL 2.2-3.9 [facility] Serum or plasma C reactive p rotein measurement (mass/volume)Ordered By: Ruth Dukes on 01-28-2023 CRP [Mass/Vol] mg/L 0.0-3.0 [facility] Comment on above: C-Reactive Protein ( CRP) provides useful information for thediagnosis, therapy and monitoring of inflammatory processesand associated diseases. For the evaluation of Relative Riskfor Cardiovascular Disease, a High Sensitivity CRP (HSCRP)should be ordered. Serum or plasma IgA measurem ent (mass/volume)Ordered By: Ruth Dukes on 01-28-2023 IgA [Mass/Vol] 202 mg/dL 64-422 [facility] Serum or plasma IgG measurem ent (mass/volume)Ordered By: Ruth Dukes on 01-28-2023 IgG [Mass/Vol] 535 mg/dL [phone] [facility] Serum or plasma IgM measurem ent (mass/volume)Ordered By: Ruth Dukes on 01-28-2023 IgM [Mass/Vol] 116 mg/dL 26-217 [facility] Serum or plasma albumin ely urement (mass/volume)Ordered By: Ruth Dukes on 01-28-2023 Albumin [Mass/Vol] 4.0 g/dL 2.9-4.4 [facility] Serum or plasma albumin/glob ulin mass ratioOrdered By: Ruth Dukes on 01-28-2023 Albumin/Globulin [Mass ratio] 1.2 {ratio} 0.9-2.4 [facility] Serum or plasma beta globuli n measurement by electrophoresis (mass/volume)Ordered By: Ruth Dukes on 01-28-2023 Beta globulin Elph [Mass/Vol] 1.2 g/dL 0.7-1.3 [facility] Serum or plasma calcium ely urement (mass/volume)Ordered By: Ruth Dukes on 01-28-2023 Calcium [Mass/Vol] 9.6 mg/dL 8.5-10.1 [facility] Serum or plasma creatinine m easurement (mass/volume)Ordered By: Ruth Dukes on 01-28-2023 Creatinine [Mass/Vol] 1.15 mg/dL 0.55-1.02 [facility] Comment on above: The validity of the calculated GFR & GFRAA in patients over 70 years has not been determined. Clinical correlation is essential. Serum or plasma gamma globul in measurement by electrophoresis (mass/volume)Ordered By: Ruth Dukes on 01-28-2023 Gamma globulin Elph [Mass/Vol] 0.5 g/dL 0.4-1.8 [facility] Serum or plasma immunoelectr ophoresis interpretation (nominal result)Ordered By: Ruth Dukes on 01-28-2023 Interpretation IEP [Interp] Comment . [facility] Comment on above: No monoclonality det ected. Serum or plasma urea nitroge n measurement (mass/volume)Ordered By: Ruth Dukes on 01-28-2023 Urea nitrogen [Mass/Vol] 13 mg/dL 7-18 [facility] Serum perinuclear neutrophil cytoplasmic antibody titer by immunofluorescenceOrdered By: Ruth Dukes on 01-28-2023 Neutrophil cytoplasmic Ab.perinuclear IF (S) [Titer] <1:20 titer Neg:<1:20 [facility] Comment on above: The presence of posi tive fluorescence exhibiting P-ANCA orC-ANCA patterns alone is not specific for the diagnosis ofWegener's Granulomatosis (WG) or microscopic polyangiitis.Decisions about treatment should not be based solely onANCA IFA results. The International ANCA Group Consensusrecommends follow up testing of positive sera with both HI-3 and MPO-ANCA enzyme immunoassays. As many as 5% serumsamples are positive only by EIA. Ref. AM J Clin [id number];111:507-513. Serum tissue transglutaminas e IgA antibody assay (units/volume)Ordered By: Ruth Dukes on 01-28-2023 tTG IgA Qn (S) <2 U/mL 0-3 [facility] Comment on above: Negative 0 - 3 Weak Positive 4 - 10 Positive >10 Tissue Transglutaminase (tTG) has been identified as the endomysial antigen. Studies have demonstr- ated that endomysial IgA antibodies have over 99% specificity for gluten sensitive enteropathy. Thin prep Papanicolaou smear with manual screeningOrdered By: Ruth Dukes on 01-28-2023 Thin prep Papanicolaou smear with manual screening 18 U/L 15-37 [facility] Thin prep Papanicolaou smear with manual screening 3 5-15 [facility] Thin prep Papanicolaou smear with manual screening 1.5 0.7-1.7 [facility] Total protein bloodOrdered B y: Ruth Dukes on 01-28-2023 Protein [Mass/Vol] 6.7 g/dL 6.0-8.5 [facility] Basophil percentageOrdered B y: Dr. Guzman on 01-01-2023 Creatinine [Mass/Vol] 1.4 mg/dL 0.55-1.02 [facility] Laboratory - Chemistry and C hemistry - challengeOrdered By: Dr. Guzman on 01-01-2023 GFR/1.73 sq M.predicted among non-blacks MDRD (S/P/Bld) [Vol rate/Area] 40.0000 mL/min/{1.73_m2} >60 [facility] Cytology report of Body flui d Cyto stainOrdered By: Dr. Guzman on 12-19-2022 Cytology report Cyto stain Doc (Body fld) SEE PATHOLOGY REPORT [facility] Comment on above: Specimen submitted t o Anatomical Pathology Department for testing. Basophil percentageOrdered B y: Dr. Aceves on 11-20-2022 Basophil percentage 0-5 SEEN /hpf 0-5 [facility] Bilirubin Test strip Ql (U)O rdered By: Dr. Aceves on 11-20-2022 Bilirubin Ql (U) Negative Negative [facility] Ketones Test strip Ql (U)Ord ered By: Dr. Aceves on 11-20-2022 Ketones Ql (U) Negative Negative [facility] Mucus LM Ql (Urine sed)Order ed By: Dr. Aceves on 11-20-2022 Mucus Ql (Urine sed) 0 SEEN /hpf [facility] Nitrite Test strip Ql (U)Ord ered By: Dr. Aceves on 11-20-2022 Nitrite Ql (U) Negative Negative [facility] Protein Test strip Ql (U)Ord ered By: Dr. Aceves on 11-20-2022 Protein Ql (U) 30 mg/dl Negative [facility] Squamous epithelial cells de tection in urine sediment by light microscopyOrdered By: Dr. Aceves on 11-20-2022 Epithelial cells.squamous LM Ql (Urine sed) 0-5 SEEN /hpf 5-10 [facility] Urine blood detectionOrdered By: Dr. Aceves on 11-20-2022 RBC Ql (U) Negative Negative [facility] RBC Ql (U) 0 SEEN /hpf 0-5 [facility] Urine clarityOrdered By: Dr. Aceves on 11-20-2022 Clarity (U) Clear Clear [facility] Urine color determinationOrd ered By: Dr. Aceves on 11-20-2022 Color (U) Yellow Yellow [facility] Urine glucose detectionOrder ed By: Dr. Aceves on 11-20-2022 Glucose Ql (U) Normal mg/dl Normal [facility] Urine leukocyte esterase det ection by dipstickOrdered By: Dr. Aceves on 11-20-2022 Leukocyte esterase Test strip Ql (U) 25 /ul Negative [facility] Urine pHOrdered By: Dr. Romy meier on 11-20-2022 pH (U) 6.5 [pH] 5.0 - 8.0 [facility] Urine sediment bacteria coun t by microscopy (number/high power field)Ordered By: Dr. Aceves on 11-20-2022 Bacteria LM.HPF (Urine sed) [#/Area] RARE /hpf None Seen [facility] Urine specific gravity measu rementOrdered By: Dr. Aceves on 11-20-2022 Specific gravity (U) [Rel density] 1.010 1.002-1.03 0 [facility] Urobilinogen Auto test strip Ql (U)Ordered By: Dr. Aceves on 11-20-2022 Urobilinogen Ql (U) Normal mg/dl Normal [facility] Absolute lymphocyte countOrd ered By: Dr. Aceves on 11-19-2022 Lymphocytes Auto (Unsp spec) [#/Vol] 2.48 10*3/uL 0.83-4.51 [facility] Basophil percentageOrdered B y: Dr. Aceves on 11-19-2022 Basophils/100 WBC (Bld) 0.9 % 0-1 [facility] Chloride [Moles/Vol] 107 mmol/L 98-107 [facility] Eosinophils/100 WBC (Bld) 2.0 % 0-5 [facility] Glucose [Mass/Vol] 92 mg/dL 74-106 [facility] Neutrophils (Bld) [#/Vol] 3.2 10*3/uL 2.0-7.7 [facility] Neutrophils/100 WBC (Bld) 48.5 % 47-70 [facility] Potassium [Moles/Vol] 3.9 mmol/L 3.5-5.1 [facility] Sodium [Moles/Vol] 139 mmol/L 136-145 [facility] WBC (Bld) [#/Vol] 6.5 10*3/uL 4.4-11.0 [facility] Blood erythrocytes count (nu mber/volume)Ordered By: Dr. Aceves on 11-19-2022 RBC (Bld) [#/Vol] 3.72 10*6/uL 4.2-5.4 [facility] Blood hemoglobin measurement (mass/volume)Ordered By: Dr. Aceves on 11-19-2022 Hemoglobin (Bld) [Mass/Vol] 10.8 g/dL 12.0-15.0 [facility] Blood lymphocytes/100 leukoc ytesOrdered By: Dr. Aceves on 11-19-2022 Lymphocytes/100 WBC (Bld) 38.1 % 19-41 [facility] Blood monocytes/100 leukocyt esOrdered By: Dr. Aceves on 11-19-2022 Monocytes/100 WBC (Bld) 10.3 % 0-10 [facility] Blood platelet mean volumeOr dered By: Dr. Aceves on 11-19-2022 Platelet mean volume (Bld) [Entitic vol] 9.6 fL 6.2-12.0 [facility] Determination of erythrocyte mean corpuscular volume (MCV)Ordered By: Dr. Aceves on 11-19-2022 MCV (RBC) [Entitic vol] 94.4 fL 81-99 [facility] Hematocrit Auto (Bld) [Volum e fraction]Ordered By: Dr. Aceves on 11-19-2022 Hematocrit (Bld) [Volume fraction] 35.1 % 37-47 [facility] Laboratory - Chemistry and C hemistry - challengeOrdered By: Dr. Aceves on 11-19-2022 CO2 [Moles/Vol] 27.0 mmol/L 21.0-32.0 [facility] Urea nitrogen/Creatinine [Mass ratio] 13.7 mg/mg 10-20 [facility] Laboratory - Hematology and Cell countsOrdered By: Dr. Aceves on 11-19-2022 Erythrocyte distribution width (RBC) [Entitic vol] 46.8 fL 35.1-43.9 [facility] Erythrocyte distribution width (RBC) [Ratio] 13.3 % 11.6-14.6 [facility] Immature granulocytes/100 WBC (Bld) 0.200 % 0.0-0.9 [facility] Comment on above: IG% - Immature Granu locytes (promyelocytes, myelocytes and metamyelocytes) > 1% indicates that a LEFT SHIFT is Present. MCH (RBC) [Entitic mass] 29.0 pg 27.0-32.0 [facility] Nucleated RBC/100 WBC (Bld) [Ratio] 0 % 0-5 [facility] MCHC Auto (RBC) [Mass/Vol]Or dered By: Dr. Aceves on 11-19-2022 MCHC (RBC) [Mass/Vol] 30.8 g/dL 32-36 [facility] No Panel InformationOrdered By: Dr. Aceves on 11-19-2022 Estimated Creatinine Clearance Calc 40.86 ml/min [facility] Estimated GFR (MDRD) Amer 51 mL/min >60 [facility] Comment on above: GFR Calc Estimated GFR (MDRD) Non-Af Amer 42 mL/min >60 [facility] Comment on above: Non- GFR Calc Troponin I High Sensitivity 6 pg/mL 3.0-54.0 [facility] Comment on above: Please Note: [place] t Units and Gender Specific Reference Ranges. For more information see Policy Stat Procedure [place] High Sensitivity Troponin (TNIH) and attachments. Platelets bldOrdered By: Dr. Aceves on 11-19-2022 Platelets (Bld) [#/Vol] 315 10*3/uL 150-450 [facility] Serum or plasma calcium ely urement (mass/volume)Ordered By: Dr. Aceves on 11-19-2022 Calcium [Mass/Vol] 8.5 mg/dL 8.5-10.1 [facility] Serum or plasma creatinine m easurement (mass/volume)Ordered By: Dr. Aceves on 11-19-2022 Creatinine [Mass/Vol] 1.31 mg/dL 0.55-1.02 [facility] Comment on above: The validity of the calculated GFR & GFRAA in patients over 70 years has not been determined. Clinical correlation is essential. Serum or plasma urea nitroge n measurement (mass/volume)Ordered By: Dr. Aceves on 11-19-2022 Urea nitrogen [Mass/Vol] 18 mg/dL 7-18 [facility] Thin prep Papanicolaou smear with manual screeningOrdered By: Dr. Aceves on 11-19-2022 Thin prep Papanicolaou smear with manual screening 5 5-15 [facility] Laboratory - Drug toxicology on 12-26-2021 Amphetamines Ql (U) Negative [facility] Work Phone: Benzodiazepines Ql (U) Positive [facility] Work Phone: Cannabinoids Screen Ql (U) Negative [facility] Work Phone: Cocaine Ql (U) Negative [facility] Work Phone: Opiates Ql (U) Positive [facility] Work Phone: No Panel Informationon 12-26 MDMA (Ecstasy) Screen Positive [facility] Work Phone: Miscellaneous Test See comment [facility] Work Phone: Comment on above: [phone] 6+OXYCODONE-B UND (ng/mL) DRUG RESULT SCREEN CUTOFF____ Amphetamines,Urine Negative ng/mL 1000 Amphetamine test includes Amphetamine and Methamphetamine.Barbiturates Negative ng/mL 200Benzodiazepines POSITIVE ng/mL 100Please Note;Confirmation performed by Mass SpectrometryNordiazepam Negative Oxazepam NegativeFlurazepam NegativeLorazepam NegativeAlprazolam Positive Alprazolam Conf, MS, UR 405 ng/mL 100Clonazepam NegativeTemazepam NegativeTriazolam NegativeMidazolam NegativeCannabinoid Negative ng/mL 20Cocaine (Metab) Negative ng/mL 300Opiates Positive ng/mL 300 Opiates test includes Codeine, Morphine, Hydromorphone, Hydrocodone. Please Note: Confirmation performed by Mass Spectrometry Codeine Negative Morphine Negative Hydromorphone Negative Hydrocodone Positive Hydrocodone Conf, [place], [place] 1115 ng/mL 300Oxycodone/Oxymorphone,Urine Negative ng/mL 300 Test includes Oxydodone and Oxymorphone. TESTING PERFORMED AT [facility]. ORIGINAL REPORT ON FILE IN LAB CONTAINS ADDITIONAL TEST SITE INFORMATION. Urine Barbiturates Screen Negative [facility] Work Phone: Urine Drug Screen Comment [facility] Work Phone: Comment on above: CONFIRMATORY TESTING FOR ALL POSITIVE URINE DRUG SCREENRESULTS WILL ONLY BE SENT OUT UPON PHYSICIAN ORDER. VISTA Urine Drug Screen methods provide only preliminaryanalytical test results. A more specific alternate chemicalmethod must be used in order to obtain a confirmedanalytical result. Gas chromatography/mass spectrometery(GC/MS) is the preferred confirmatory method. Clinicalconsideration and professional judgement should be appliedto any drug of abuse test result, particularly whenpreliminary positive results are used. URINE TCA TESTING MUST BE ORDERED SEPARATELY. USE TESTMNEMONIC: [facility] Urine Methadone Screen Negative [facility] Work Phone: Urine phencyclidine (PCP) de tectionon 12-26-2021 Phencyclidine Ql (U) Negative [facility] Work Phone: CBC AND ELECTRONIC DIFFon Basophils (Bld) [#/Vol] 0.05 10*3/uL Normal 0.00-0.15 [facility] Comment on above: Performed By: #### L [id number] #### [facility] (DEFAULT) [address] [place] [address] 12406 Basophils/100 WBC (Bld) 0.4 % Normal [facility] Comment on above: Performed By: #### L [id number] #### [facility] (DEFAULT) [address] [place] [address] 92921 DIFF STATUS Electronic Differential Normal [facility] Comment on above: Performed By: #### L [id number] #### [facility] (DEFAULT) [address] [place] [address] 17072 Eosinophils (Bld) [#/Vol] 10*3/uL Normal 0.00-0.42 [facility] Comment on above: Performed By: #### L [id number] #### [facility] (DEFAULT) [address] [place] [address] 53572 Eosinophils/100 WBC (Bld) 0.0 % Normal [facility] Comment on above: Performed By: #### L [id number] #### [facility] (DEFAULT) [address] [place] [address] 77539 Hematocrit (Bld) [Volume fraction] 39.7 % Normal 34.9-44.3 [facility] Comment on above: Performed By: #### L [id number] #### [facility] (DEFAULT) [address] [place] [address] 91292 Hemoglobin (Bld) [Mass/Vol] 12.5 g/dL Normal 11.4-15.2 [facility] Comment on above: Performed By: #### L [id number] #### [facility] (DEFAULT) [address] [place] [address] 96345 Immature Grans % 0.5 % Normal [facility] Comment on above: Performed By: #### L [id number] #### [facility] (DEFAULT) [address] [place] [address] 91861 Immature Grans Absolute 0.07 K/uL Normal <=0.09 [facility] Comment on above: Performed By: #### L [id number] #### [facility] (DEFAULT) [address] [place] [address] 24480 Lymphocytes (Bld) [#/Vol] 0.78 10*3/uL Low 1.16-3.5 1 [facility] Comment on above: Performed By: #### L [id number] #### [facility] (DEFAULT) [address] [place] [address] 63108 Lymphocytes/100 WBC (Bld) 6.1 % Normal [facility] Comment on above: Performed By: #### L [id number] #### [facility] (DEFAULT) [address] [place] [address] 28926 MCV (RBC) [Entitic vol] 93.4 fL Normal 79.6-97.7 [facility] Comment on above: Performed By: #### L [id number] #### [facility] (DEFAULT) [address] [place] [address] 45660 Mean Cell Hgb 29.4 pg Normal 25.9-33.9 [facility] Comment on above: Performed By: #### L [id number] #### [facility] (DEFAULT) [address] [place] [address] 17005 Mean Cell Hgb Conc 31.5 g/dL Normal 31.4-35.9 [facility] Comment on above: Performed By: #### L [id number] #### [facility] (DEFAULT) [address] [place] [address] 38380 Monocytes (Bld) [#/Vol] 0.32 10*3/uL Normal 0.22-0.87 [facility] Comment on above: Performed By: #### L [id number] #### [facility] (DEFAULT) [address] [place] [address] 89434 Monocytes/100 WBC (Bld) 2.5 % Normal [facility] Comment on above: Performed By: #### L [id number] #### [facility] (DEFAULT) [address] [place] [address] 17708 Nucleated RBC 0.0 /100 WBC Normal <=0.2 [facility] Comment on above: Performed By: #### L [id number] #### [facility] (DEFAULT) [address] [place] [address] 25158 Platelet mean volume (Bld) [Entitic vol] 9.1 fL Normal 8.5-12.2 [facility] Comment on above: Performed By: #### L [id number] #### [facility] (DEFAULT) [address] [place] [address] 39248 Platelets (Bld) [#/Vol] 450 10*3/uL High 150-393 [facility] Comment on above: Performed By: #### L [id number] #### [facility] (DEFAULT) [address] [place] [address] 88930 RBC (Bld) [#/Vol] 4.25 10*6/uL Normal 3.91-5.04 [facility] Comment on above: Performed By: #### L [id number] #### [facility] (DEFAULT) [address] [place] [address] 63331 RBC Distribution 12.6 % Normal 10.8-14.9 [facility] Comment on above: Performed By: #### L [id number] #### [facility] (DEFAULT) [address] [place] [address] 96080 Segs + Bands Auto 90.5 % Normal [facility] Comment on above: Performed By: #### L [id number] #### [facility] (DEFAULT) [address] [place] [address] 01478 Segs + Bands,Absolute Auto 11.53 K/uL High 1.64-7.28 [facility] Comment on above: Performed By: #### L [id number] #### [facility] (DEFAULT) [address] [place] [address] 17962 WBC (Bld) [#/Vol] 12.75 10*3/uL High 3.99-11.19 [facility] Comment on above: Performed By: #### L [id number] #### [facility] (DEFAULT) [address] [place] [address] 49876 CHEM 7 (LYTES,BUN,CREA,GLUC) on 08-07-2021 Anion gap [Moles/Vol] 17 mmol/L Normal 7-17 [facility] Comment on above: Performed By: #### C HM7 #### [facility] (DEFAULT) [address] [place] [address] 89092 Chloride [Moles/Vol] 103 mmol/L Normal 98-108 [facility] Comment on above: Performed By: #### C HM7 #### [facility] (DEFAULT) [address] [place] [address] 64713 CO2 [Moles/Vol] 21 mmol/L Low 22-30 [facility] Comment on above: Performed By: #### C HM7 #### [facility] (DEFAULT) [address] [place] [address] 24559 Creatinine [Mass/Vol] 1.20 mg/dL Normal 0.50-1.20 [facility] Comment on above: Performed By: #### C HM7 #### [facility] (DEFAULT) [address] [place] [address] 96344 EST GFR, 54 mL/min/1.73sqM Low >=6 0 [facility] Comment on above: Performed By: #### C HM7 #### [facility] (DEFAULT) [address] [place] [address] 29829 EST GFR,Non 44 mL/min/1.73sqM Low >=60 [facility] Comment on above: Performed By: #### C HM7 #### [facility] (DEFAULT) [address] [place] [address] 43268 Glucose [Mass/Vol] 118 mg/dL High 70-99 [facility] Comment on above: Performed By: #### C HM7 #### [facility] (DEFAULT) [address] [place] [address] 62754 Osmolality [Osmolality] 290 mosm/kg Normal 278-305 [facility] Comment on above: Performed By: #### C HM7 #### [facility] (DEFAULT) [address] [place] [address] 34482 Potassium [Moles/Vol] 4.0 mmol/L Normal 3.5-5.0 [facility] Comment on above: Performed By: #### C HM7 #### [facility] (DEFAULT) [address] [place] [address] 91091 Sodium [Moles/Vol] 137 mmol/L Normal 133-143 [facility] Comment on above: Performed By: #### C HM7 #### [facility] (DEFAULT) [address] [place] [address] 02938 Urea nitrogen [Mass/Vol] 18 mg/dL Normal 7-22 [facility] Comment on above: Performed By: #### C HM7 #### [facility] (DEFAULT) [address] [place] [address] 98391 Urea nitrogen/Creatinine [Mass ratio] 15 mg/mg Normal [facility] Comment on above: Performed By: #### C HM7 #### [facility] (DEFAULT) [address] [place] [address] 39339 EP PROCEDURE - EPS/ABLATION/ DEVICEon 08-07-2021 EP PROCEDURE - EPS/ABLATION/DEVICE ? Atrial tachycardia RFA ? EPS at baseline and on isuprel Nella Benítez is a 71 y.o. female who has a past medical history of HTN, hypothyroidism, and SVT who presented to the [facility] EP lab for further evaluation regarding SVT. Conclusions 1. SVT TCL 400 ms was induced with atrial overdrive pacing. Septal VA time was 110 ms. Ventricular overdrive pacing was not able to entrain the tachycardia despite multiple attempts at pacing at different and shorted CL. VAD noted. 2. Duodeca catheter was placed in RA and CS. Earliest activation noted at 9,10, closer to CS os. 3. RA and LA were paced and mapped with 3D electroanatomic mapping system and earliest activation was noted near the CS OS. Patient has a PFO and we were able to cross to LA with out transseptal puncture. 4. Successful ablation of atrial tachycardia near the CS OS. 3. No inducible atrial tachycardia post ablation while on isoproterenol and at baseline EP study post RFA 1. Baseline rhythm is sinus rhythm 2. Normal sinus node function (SNRT 980 ms). 3. Normal AV node function, normal infranodal conduction (HV= 40 ms). 4. No evidence of accessory pathway. 5. Dual AV node physiology. 6. VA conduction present and is decremental. Recommendations 1. Routine sheath care 2. Bedrest for 3 hours 3. The patient may be discharged later today. 4. Can stop metoprolol if no other indication. 5. The patient can continue ongoing follow-up by Dr. Young. Nella SNathanael Benítez EP Procedure - EPS/Ablation/Device Ordering Physician: DON BROOKS Order #: [id number] Study Date: 08/07/2021 Patient Information Name MRN Description Nella Benítez [id number] 71 y.o. female Physicians Panel Physicians Referring Physician Case Authorizing Physician Don Brooks MD (Primary) MD Duncan Garibay MBBS (Fellow) Procedures SVT Ablation Pre Procedure Diagnosis SVT (supraventricular tachycardia) [I47.1] Post Procedure Diagnosis SVT (supraventricular tachycardia) [I47.1] Indications SVT (supraventricular tachycardia) [I47.1 (ICD-10-CM)] Conclusion ? Atrial tachycardia RFA ? EPS at baseline and on isuprel Nella Benítez is a 71 y.o. female who has a past medical history of HTN, hypothyroidism, and SVT who presented to the [facility] EP lab for further evaluation regarding SVT. Conclusions 1. SVT TCL 400 ms was induced with atrial overdrive pacing. Septal VA time was 110 ms. Ventricular overdrive pacing was not able to entrain the tachycardia despite multiple attempts at pacing at different and shorted CL. VAD noted. 2. Duodeca catheter was placed in RA and CS. Earliest activation noted at 9,10, closer to CS os. 3. RA and LA were paced and mapped with 3D electroanatomic mapping system and earliest activation was noted near the CS OS. Patient has a PFO and we were able to cross to LA with out transseptal puncture. 4. Successful ablation of atrial tachycardia near the CS OS. 3. No inducible atrial tachycardia post ablation while on isoproterenol and at baseline EP study post RFA 1. Baseline rhythm is sinus rhythm 2. Normal sinus node function (SNRT 980 ms). 3. Normal AV node function, normal infranodal conduction (HV= 40 ms). 4. No evidence of accessory pathway. 5. Dual AV node physiology. 6. VA conduction present and is decremental. Recommendations 1. Routine sheath care 2. Bedrest for 3 hours 3. The patient may be discharged later today. 4. Can stop metoprolol if no other indication. 5. The patient can continue ongoing follow-up by Dr. Young. Consent The procedure was explained including the potential risks of infection, heart perforation, re-operation, and other risks pertinent to procedure. Informed consent and permission to proceed was given. Site Preparation On the day of the procedure, the patient was brought to the operating room and the groin prepped with chloraprep. Site prepped by RT Agnieszka. The patient was draped in the usual sterile manner. Interval Collection conditions: during drug infusion. Drug administered: isoproterenol. Type of rhythm: sinus tachycardia. Ventricular cycle length: 400 ms. A-H: 110 ms. H-V: 40 ms. Atrial Pacing Atrial site studied: high right atrium. Collection conditions: baseline. Longest SNRT: 980 ms. Sinus cycle length: 660 ms. CSNRT: 320 ms. AV Wenckebach interval: [address] cycle length: 600 ms. Fast pathway AVERP: 220 ms. Atrial site studied: high right atrium. Collection conditions: during drug infusion. Drug administered: isoproterenol. AV Wenckebach interval: [address] cycle length: 400 ms. Fast pathway AVERP: less than 220 ms. Atrial site studied: left atrium via coronary sinus. Collection conditions: during drug infusion. Drug administered: isoproterenol. Sinus cycle length: 400 ms. Atrial site studied: left atrium via coronary sinus. Collection conditions: during drug infusion. Drug administered: isopro (more content not included)... Normal [facility] PT,INR,PTTon 08-07-2021 aPTT Coag (Bld) [Time] 29.9 s Normal 24.0-34.[address] [facility] Comment on above: Performed By: #### P TPTT #### [facility] (DEFAULT) [address] [place] [address] 12045 INR Coag (PPP) [Relative time] 0.9 {INR} Normal 0.9-1.1 [facility] Comment on above: Performed By: #### P TPTT #### [facility] (DEFAULT) [address] [place] [address] 07765 PT Coag (PPP) [Time] 12.4 s Normal 11.9-14.2 [facility] Comment on above: Performed By: #### P TPTT #### [facility] (DEFAULT) [address] [place] [address] 14529 Additional Injections: bilat eral carpal tunnel [facility] Vital Signs Date Time Vital Sign Value Performing Clinician Owen gomez 03-27-2025 11:40-0400 Diastolic blood pressure 88 mm[Hg] Eunice Joe MD Work Phone: [facility] 03-27-2025 11:40-0400 Heart rate 76 /min Eunice Joe MD Work Phone: [facility] 03-27-2025 11:40-0400 Respiratory rate 12 /min Eunice Joe MD Work Phone: [facility] 03-27-2025 11:40-0400 SaO2% (BldA) [Mass fraction] 97 % Eunice Joe MD Work Phone: [facility] 03-27-2025 11:40-0400 Systolic blood pressure 138 mm[Hg] Eunice Joe MD Work Phone: [facility] 03-16-2025 11:01-0400 Body mass index (BMI) [Ratio] 29.33 kg/m2 Octavio Salas APRN.[employer] TECHNICIAN Work Phone: [facility] 03-16-2025 11:01-0400 Body temperature 98.8 [degF] Octavio Salas APRN.MASTER [employer] TECHNICIAN Work Phone: [facility] 03-16-2025 11:01-0400 Body weight 67 kg Octavio Swank HAND FRAME [employer] K[employer]ITTER.MASTER [employer]IVE [employer] TECHNICIAN Work Phone: [facility] 03-16-2025 11:01-0400 Diastolic blood pressure 91 mm[Hg] Octavio Swank HAND FRAME [employer] K[employer]ITTER.MASTER [employer] TECHNICIAN Work Phone: [facility] 03-16-2025 11:01-0400 Heart rate 97 /min Octavio Swank HAND FRAME [employer] K[employer]ITTER.MASTER [employer]IVE [employer] TECHNICIAN Work Phone: [facility] 03-16-2025 11:01-0400 Respiratory rate 24 /min Octavio Swank HAND FRAME [employer] K[employer]ITTER.MASTER [employer]IVE [employer] TECHNICIAN Work Phone: [facility] 03-16-2025 11:01-0400 SaO2% (BldA) [Mass fraction] 97 % Octavio Swank HAND [employer] K[employer]TER.MASTER [employer]IVE [employer] TECHNICIAN Work Phone: [facility] 03-16-2025 11:01-0400 Systolic blood pressure 140 mm[Hg] Octavio Swank HAND FRAME [employer] K[employer]ITTER.MASTER [employer]IVE [employer] TECHNICIAN Work Phone: [facility] 12-22-2024 11:53-0400 Body mass index (BMI) [Ratio] 29.25 kg/m2 Kika Thompson HAND [employer] K[employer]TER.MASTER [employer]IVE [employer] TECHNICIAN Work Phone: [facility] 12-22-2024 11:53-0400 Body temperature 98.71 [degF] Kika Thompson HAND [employer] K[employer]ITTER.MASTER [employer]IVE [employer] TECHNICIAN Work Phone: [facility] 12-22-2024 11:53-0400 Body weight 66.8 kg Kika Thompson HAND [employer] K[employer]ITTER.MASTER [employer]IVE [employer] TECHNICIAN Work Phone: [facility] 12-22-2024 11:53-0400 Diastolic blood pressure 93 mm[Hg] Kika Thompson HAND FRAME [employer] K[employer]ITTER.MASTER [employer]IVE [employer] TECHNICIAN Work Phone: [facility] 12-22-2024 11:53-0400 Heart rate 89 /min Kika Thompson HAND FRAME [employer] K[employer]TER.MASTER [employer]IVE [employer] TECHNICIAN Work Phone: [facility] 12-22-2024 11:53-0400 Respiratory rate 18 /min Kika Thompson HAND FR[employer] K[employer]ITTER.MASTER [employer]IVE [employer] TECHNICIAN Work Phone: [facility] 12-22-2024 11:53-0400 SaO2% (BldA) [Mass fraction] 97 % Kika Thompson HAND FR[employer] K[employer]ITTER.MASTER [employer]IVE [employer] TECHNICIAN Work Phone: [facility] 12-22-2024 11:53-0400 Systolic blood pressure 118 mm[Hg] Kika Thompson HAND FRAME [employer] E[employer]IC K[employer]ITTER.MASTER [employer]IVE [employer] TECHNICIAN Work Phone: [facility] 12-14-2024 09:56-0500 Diastolic blood pressure 84 mm[Hg] Abner Denisha HAND FRAME [employer]ICAL E[employer]IC K[employer]ITTER.MASTER [employer]IVE [employer] TECHNICIAN Work Phone: [facility] 12-14-2024 09:56-0500 Systolic blood pressure 136 mm[Hg] Abner Denisha HAND FRAME [employer]ICAL E[employer]IC KNITTER.MASTER [employer]IVE [employer] TECHNICIAN Work Phone: [facility] 12-14-2024 09:55-0500 Body mass index (BMI) [Ratio] 29.25 kg/m2 Abner Denisha HAND [employer] K[employer]ITTER.MASTER [employer]IVE [employer] TECHNICIAN Work Phone: [facility] 12-14-2024 09:55-0500 Body temperature 98.2 [degF] Abner Denisha HAND FR[employer] K[employer]ITTER.MASTER [employer]IVE [employer] TECHNICIAN Work Phone: [facility] 12-14-2024 09:55-0500 Body weight 66.8 kg Abner Denisha HAND FRAME [employer] K[employer]ITTER.MASTER [employer]IVE [employer] TECHNICIAN Work Phone: [facility] 12-14-2024 09:55-0500 Heart rate 85 /min Abner Denisha HAND FRAME [employer] E[employer] K[employer]ITTER.MASTER [employer]IVE [employer] TECHNICIAN Work Phone: [facility] 12-14-2024 09:55-0500 SaO2% (BldA) [Mass fraction] 96 % Abner Denisha HAND FR[employer] E[employer] K[employer]ITTER.MASTER [employer]IVE [employer] TECHNICIAN Work Phone: [facility] 12-03-2024 11:14-0500 Body mass index (BMI) [Ratio] 29.33 kg/m2 Eunice Joe MD Work Phone: [facility] 12-03-2024 11:14-0500 Body weight 67 kg Eunice Joe MD Work Phone: [facility] 12-03-2024 11:14-0500 Diastolic blood pressure 76 mm[Hg] Eunice Joe MD Work Phone: [facility] 12-03-2024 11:14-0500 Heart rate 71 /min Eunice Joe MD Work Phone: [facility] 12-03-2024 11:14-0500 Respiratory rate 16 /min Eunice Joe MD Work Phone: [facility] 12-03-2024 11:14-0500 Systolic blood pressure 140 mm[Hg] Eunice Joe MD Work Phone: [facility] 08-25-2024 13:56-0500 Body mass index (BMI) [Ratio] 28.96 kg/m2 Ruth Roseline HAND FR[employer] K[employer]ITTER.MASTER [employer]OTIVE [employer] TECHNICIAN Work Phone: [facility] 08-25-2024 13:56-0500 Body weight 66.13 kg Ruth Roseline HAND FRAME [employer] E[employer] K[employer]ITTER.MASTER AUT[employer]OTIVE [employer] TECHNICIAN Work Phone: [facility] 08-25-2024 13:56-0500 Diastolic blood pressure 90 mm[Hg] Ruth Roseline HAND FRAME [employer] E[employer]IC KNITTER.MASTER AUT[employer]OTIVE [employer] TECHNICIAN Work Phone: [facility] 08-25-2024 13:56-0500 Heart rate 102 /min Ruth Roseline HAND FRAME [employer]ICAL E[employer]IC K[employer]ITTER.MASTER AUTOMOTIVE [employer] TECHNICIAN Work Phone: [facility] 08-25-2024 13:56-0500 Respiratory rate 18 /min Ruth Roseline HAND FRAME [employer] E[employer]IC K[employer]ITTER.MASTER AUT[employer]OTIVE [employer] TECHNICIAN Work Phone: [facility] 08-25-2024 13:56-0500 SaO2% (BldA) [Mass fraction] 99 % Ruth Roseline HAND FRAME [employer] E[employer]IC KNITTER.MASTER [employer]IVE [employer] TECHNICIAN Work Phone: [facility] 08-25-2024 13:56-0500 Systolic blood pressure 134 mm[Hg] Ruth Roseline HAND FRAME [employer]ICAL E[employer]IC KNITTER.MASTER [employer]IVE [employer] TECHNICIAN Work Phone: [facility] 08-10-2024 11:35-0400 Body mass index (BMI) [Ratio] 29.38 kg/m2 Eunice Joe MD Work Phone: [facility] 08-10-2024 11:35-0400 Body temperature 97.7 [degF] Eunice Joe MD Work Phone: [facility] 08-10-2024 11:35-0400 Body weight 67.1 kg Eunice Joe MD Work Phone: [facility] 08-10-2024 11:35-0400 Diastolic blood pressure 80 mm[Hg] Eunice Joe MD Work Phone: [facility] 08-10-2024 11:35-0400 Heart rate 78 /min Eunice Joe MD Work Phone: [facility] 08-10-2024 11:35-0400 Respiratory rate 16 /min Eunice Joe MD Work Phone: [facility] 08-10-2024 11:35-0400 SaO2% (BldA) [Mass fraction] 100 % Eunice Joe MD Work Phone: [facility] 08-10-2024 11:35-0400 Systolic blood pressure 122 mm[Hg] Eunice Joe MD Work Phone: [facility] 06-28-2024 19:12-0400 Body mass index (BMI) [Ratio] 28.06 kg/m2 Eunice Joe MD Work Phone: [facility] 06-28-2024 19:12-0400 Body temperature 98.01 [degF] Eunice Joe MD Work Phone: [facility] 06-28-2024 19:12-0400 Body weight 64.1 kg Eunice Joe MD Work Phone: [facility] 06-28-2024 19:12-0400 Diastolic blood pressure 88 mm[Hg] Eunice Joe MD Work Phone: [facility] 06-28-2024 19:12-0400 Heart rate 83 /min Eunice Joe MD Work Phone: [facility] 06-28-2024 19:12-0400 Respiratory rate 18 /min Eunice Joe MD Work Phone: [facility] 06-28-2024 19:12-0400 SaO2% (BldA) [Mass fraction] 96 % Eunice Joe MD Work Phone: [facility] 06-28-2024 19:12-0400 Systolic blood pressure 138 mm[Hg] Eunice Joe MD Work Phone: [facility] 06-07-2024 12:59-0400 Diastolic blood pressure 92 mm[Hg] Abner Denisha HAND FRAME [employer] K[employer]ITTER.MASTER [employer] TECHNICIAN Work Phone: [facility] 06-07-2024 12:59-0400 Systolic blood pressure 150 mm[Hg] Abner Denisha HAND FRAME [employer] E[employer] K[employer]ITTER.MASTER [employer]IVE [employer] TECHNICIAN Work Phone: [facility] 06-07-2024 12:55-0400 Body mass index (BMI) [Ratio] 28.11 kg/m2 Abner Denisha HAND FRAME [employer] K[employer]ITTER.MASTER [employer]IVE [employer] TECHNICIAN Work Phone: [facility] 06-07-2024 12:55-0400 Body weight 64.2 kg Abner Denisha HAND FRAME [employer] E[employer] K[employer]ITTER.MASTER AUTOM[employer]IVE [employer] TECHNICIAN Work Phone: [facility] 06-07-2024 12:55-0400 Heart rate 87 /min Abner Denisha HAND FRAME [employer] E[employer] K[employer]ITTER.MASTER AUT[employer]OTIVE [employer] TECHNICIAN Work Phone: [facility] 06-07-2024 12:55-0400 SaO2% (BldA) [Mass fraction] 97 % Abner Denisha HAND FRAME [employer] E[employer] KNITTER.MASTER AUT[employer]OTIVE [employer] TECHNICIAN Work Phone: [facility] 03-25-2024 10:56-0400 Body mass index (BMI) [Ratio] 28.96 kg/m2 Ruth Roseline HAND FR[employer] K[employer]ITTER.MASTER AUT[employer]IVE [employer] TECHNICIAN Work Phone: [facility] 03-25-2024 10:56-0400 Body weight 66.13 kg Ruth Roseline HAND FRAME [employer] E[employer] K[employer]ITTER.MASTER AUT[employer]IVE [employer] TECHNICIAN Work Phone: [facility] 03-25-2024 10:56-0400 Diastolic blood pressure 91 mm[Hg] Ruth Roseline HAND FRAME [employer] E[employer] KNITTER.MASTER AUTOMOTIVE [employer]ASS TECHNICIAN Work Phone: [facility] 03-25-2024 10:56-0400 Heart rate 82 /min Ruth Roseline HAND FRAME SURGICAL ELASTIC KNITTER.MASTER AUTOMOTIVE GLASS TECHNICIAN Work Phone: [facility] 03-25-2024 10:56-0400 Respiratory rate 18 /min Ruth Roseline HAND FRAME SURGICAL ELASTIC KNITTER.MASTER AUTOMOTIVE GLASS TECHNICIAN Work Phone: [facility] 03-25-2024 10:56-0400 SaO2% (BldA) [Mass fraction] 96 % Ruth Roseline HAND FRAME SURGICAL ELASTIC KNITTER.MASTER AUTOMOTIVE GLASS TECHNICIAN Work Phone: [facility] 03-25-2024 10:56-0400 Systolic blood pressure 147 mm[Hg] Ruth Roseline HAND FRAME SURGICAL ELASTIC KNITTER.MASTER AUTOMOTIVE GLASS TECHNICIAN Work Phone: [facility] 03-16-2024 15:11-0400 Body mass index (BMI) [Ratio] 28.8 kg/m2 Eunice Joe MD Work Phone: [facility] 03-16-2024 15:11-0400 Body temperature 97.11 [degF] Eunice Joe MD Work Phone: [facility] 03-16-2024 15:11-0400 Body weight 65.77 kg Eunice Joe MD Work Phone: [facility] 03-16-2024 15:11-0400 Diastolic blood pressure 82 mm[Hg] Eunice Joe MD Work Phone: [facility] 03-16-2024 15:11-0400 Heart rate 88 /min Eunice Joe MD Work Phone: [facility] 03-16-2024 15:11-0400 Respiratory rate 18 /min Eunice Joe MD Work Phone: [facility] 03-16-2024 15:11-0400 SaO2% (BldA) [Mass fraction] 98 % Eunice Joe MD Work Phone: [facility] 03-16-2024 15:11-0400 Systolic blood pressure 122 mm[Hg] Eunice Joe MD Work Phone: [facility] 01-06-2024 11:04-0400 Body height 149.[address] Eunice Joe Work Phone: [facility] 01-06-2024 11:04-0400 Body mass index (BMI) [Ratio] 29.5 kg/m2 Dr. Eunice Joe Work Phone: [facility] 01-06-2024 11:04-0400 Body weight 66.[address] Eunice Joe Work Phone: [facility] 01-06-2024 11:04-0400 Diastolic blood pressure 84 mm[Hg] Dr. Eunice Joe Work Phone: [facility] 01-06-2024 11:04-0400 Heart rate 85 /min Dr. Eunice Joe Work Phone: [facility] 01-06-2024 11:04-0400 Respiratory rate 18 /min Dr. Eunice Joe Work Phone: [facility] 01-06-2024 11:04-0400 SaO2% (BldA) [Mass fraction] 97 % Dr. Eunice Joe Work Phone: [facility] 01-06-2024 11:04-0400 Systolic blood pressure 137 mm[Hg] Dr. Eunice Joe Work Phone: [facility] 11-11-2023 15:49-0500 Body height 151.1 cm Eunice Joe MD Work Phone: [facility] 11-11-2023 15:49-0500 Body temperature 98.91 [degF] Eunice Joe MD Work Phone: [facility] 11-11-2023 15:49-0500 Body weight 66.22 kg Eunice Joe MD Work Phone: [facility] 11-11-2023 15:49-0500 Diastolic blood pressure 78 mm[Hg] Eunice Joe MD Work Phone: [facility] 11-11-2023 15:49-0500 Heart rate 85 /min Eunice Joe MD Work Phone: [facility] 11-11-2023 15:49-0500 Respiratory rate 12 /min Eunice Joe MD Work Phone: [facility] 11-11-2023 15:49-0500 SaO2% (BldA) [Mass fraction] 99 % Eunice Joe MD Work Phone: [facility] 11-11-2023 15:49-0500 Systolic blood pressure 150 mm[Hg] Eunice Joe MD Work Phone: [facility] 09-07-2023 14:00-0500 Body temperature 97.6 [degF] [facility] 09-07-2023 14:00-0500 Diastolic blood pressure 78 mm[Hg] [facility] 09-07-2023 14:00-0500 Heart rate 74 /min [facility] 09-07-2023 14:00-0500 Respiratory rate 14 /min [facility] 09-07-2023 14:00-0500 SaO2% (BldA) [Mass fraction] 97 % [facility] 09-07-2023 14:00-0500 Systolic blood pressure 142 mm[Hg] [facility] 09-07-2023 11:16-0500 Body height 149.86 cm [facility] 09-07-2023 11:16-0500 Body mass index (BMI) [Ratio] 29.2 kg/m2 [facility] 09-07-2023 11:16-0500 Body weight 65.77 kg [facility] 07-04-2023 11:25-0400 Body temperature 98.29 [degF] Rachna Bloomfield HAND FRAME SURGICAL ELASTIC KNITTER.MASTER AUTOMOTIVE GLASS TECHNICIAN Work Phone: [facility] 07-04-2023 11:25-0400 Body weight 67.22 kg Rachna Bloomfield HAND FRAME SURGICAL ELASTIC KNITTER.MASTER AUTOMOTIVE GLASS TECHNICIAN Work Phone: [facility] 07-04-2023 11:25-0400 Diastolic blood pressure 85 mm[Hg] Rachna Mellissa HAND FRAME SURGICAL ELASTIC KNITTER.MASTER AUTOMOTIVE GLASS TECHNICIAN Work Phone: [facility] 07-04-2023 11:25-0400 Heart rate 97 /min Rachna Mellissa HAND FRAME SURGICAL ELASTIC KNITTER.MASTER AUTOMOTIVE GLASS TECHNICIAN Work Phone: [facility] 07-04-2023 11:25-0400 Respiratory rate 24 /min Rachna Bloomfield HAND FRAME SURGICAL ELASTIC KNITTER.MASTER AUTOMOTIVE GLASS TECHNICIAN Work Phone: [facility] 07-04-2023 11:25-0400 SaO2% (BldA) [Mass fraction] 98 % Rachna Bloomfield HAND FRAME SURGICAL ELASTIC KNITTER.MASTER AUTOMOTIVE GLASS TECHNICIAN Work Phone: [facility] 07-04-2023 11:25-0400 Systolic blood pressure 142 mm[Hg] Rachna Bloomfield HAND FRAME SURGICAL ELASTIC KNITTER.MASTER AUTOMOTIVE GLASS TECHNICIAN Work Phone: [facility] 06-05-2023 16:45-0400 Body temperature 99 [degF] Eunice Joe MD Work Phone: [facility] 06-05-2023 16:45-0400 Body weight 69.4 kg Eunice Joe MD Work Phone: [facility] 06-05-2023 16:45-0400 Diastolic blood pressure 78 mm[Hg] Eunice Joe MD Work Phone: [facility] 06-05-2023 16:45-0400 Heart rate 82 /min Eunice Joe MD Work Phone: [facility] 06-05-2023 16:45-0400 Respiratory rate 18 /min Eunice Joe MD Work Phone: [facility] 06-05-2023 16:45-0400 SaO2% (BldA) [Mass fraction] 96 % Eunice Joe MD Work Phone: [facility] 06-05-2023 16:45-0400 Systolic blood pressure 138 mm[Hg] Eunice Joe MD Work Phone: [facility] 04-06-2023 07:17-0400 Body temperature 98.1 [degF] Dr. Eunice Joe Work Phone: [facility] 04-06-2023 07:17-0400 Diastolic blood pressure 57 mm[Hg] Dr. Eunice Joe Work Phone: 2(383)[phone] [place] [address] 04-06-2023 07:17-0400 Heart rate 68 /min Dr. Eunice Joe Work Phone: [facility] 04-06-2023 07:17-0400 Respiratory rate 16 /min Dr. Eunice Joe Work Phone: 4(867)[phone] [place] [address] 04-06-2023 07:17-0400 SaO2% (BldA) [Mass fraction] 94 % Dr. Eunice Joe Work Phone: 5(016)[phone] [place] [address] 04-06-2023 07:17-0400 Systolic blood pressure 115 mm[Hg] Dr. Eunice Joe Work Phone: 4(561)[phone] [place] [address] 04-06-2023 05:45-0400 Body height 149.[address] Eunice Joe Work Phone: 4(670)[phone] [place] [address] 04-06-2023 05:45-0400 Body mass index (BMI) [Ratio] 30.1 kg/m2 Dr. Eunice Joe Work Phone: 1(920)[phone] [place] [address] 04-06-2023 05:45-0400 Body weight 67.[address] Eunice Joe Work Phone: [facility] 03-25-2023 16:06-0400 Body temperature 98.91 [degF] Krislyn Aberegg PA Work Phone: [facility] 03-25-2023 16:06-0400 Body weight 69.58 kg Krislyn Aberegg PA Work Phone: [facility] 03-25-2023 16:06-0400 Diastolic blood pressure 84 mm[Hg] Krislyn Aberegg PA Work Phone: [facility] 03-25-2023 16:06-0400 Heart rate 92 /min Krislyn Aberegg PA Work Phone: [facility] 03-25-2023 16:06-0400 Respiratory rate 18 /min Krmagdageorges Wallygg PA Work Phone: [facility] 03-25-2023 16:06-0400 SaO2% (BldA) [Mass fraction] 96 % Krdarianlyn Aberegg PA Work Phone: [facility] 03-25-2023 16:06-0400 Systolic blood pressure 138 mm[Hg] Krdarianlygeorges Aberegg PA Work Phone: [facility] 02-10-2023 19:45-0400 Body temperature 97.16 [degF] FADY SHI MD [facility] 02-10-2023 19:45-0400 Diastolic Blood Pressure Non-Invasive 80 1 FADY SHI MD [facility] 02-10-2023 19:45-0400 Heart rate 96 /min FADY SHI MD [facility] 02-10-2023 19:45-0400 Respiratory rate 16 /min FADY SHI MD [facility] 02-10-2023 19:45-0400 Systolic Blood Pressure Non-Invasive 148 1 FADY SHI MD [facility] 02-10-2023 18:35-0400 Body temperature 97.34 [degF] FADY SHI MD [facility] 02-10-2023 18:35-0400 Diastolic Blood Pressure Non-Invasive 66 1 FADY SHI MD [facility] 02-10-2023 18:35-0400 Heart rate 68 /min FADY SHI MD [facility] 02-10-2023 18:35-0400 Reason For Taking VItal Signs FADY SHI MD [facility] 02-10-2023 18:35-0400 Respiratory rate 16 /min FADY SHI MD [facility] 02-10-2023 18:35-0400 Systolic Blood Pressure Non-Invasive 122 1 FADY SHI MD [facility] 02-10-2023 18:18-0400 Body temperature 97.34 [degF] FADY SHI MD [facility] 02-10-2023 18:18-0400 Diastolic Blood Pressure Non-Invasive 60 1 FADY SHI MD [facility] 02-10-2023 18:18-0400 Heart rate 71 /min FADY SHI MD [facility] 02-10-2023 18:18-0400 Mean blood pressure 73 mm[Hg] FADY SHI MD [facility] 02-10-2023 18:18-0400 Respiratory rate 16 /min FADY SHI MD [facility] 02-10-2023 18:18-0400 Systolic Blood Pressure Non-Invasive 113 1 FADY SHI MD [facility] 02-10-2023 18:10-0400 Heart rate 73 /min FADY SHI MD [facility] 02-10-2023 18:10-0400 Mean blood pressure 64 mm[Hg] FADY SHI MD [facility] 02-10-2023 17:55-0400 Heart rate 77 /min FADY SHI MD [facility] 02-10-2023 17:55-0400 Mean blood pressure 81 mm[Hg] FADY SHI MD [facility] 02-10-2023 17:10-0400 Body temperature 97.16 [degF] FADY SHI MD [facility] 02-10-2023 17:05-0400 Respiratory Rate - Anes 26 br/min FADY SHI MD [facility] 02-10-2023 17:00-0400 Respiratory Rate - Anes 8 br/min FADY SHI MD [facility] 02-10-2023 16:55-0400 Body temperature 97.41 [degF] FADY SHI MD [facility] 02-10-2023 16:55-0400 Respiratory Rate - Anes 10 br/min FADY SHI MD [facility] 02-10-2023 16:50-0400 Body temperature 97.59 [degF] FADY SHI MD [facility] 02-10-2023 16:45-0400 Body temperature 97.7 [degF] FADY SHI MD [facility] 02-10-2023 11:57-0400 Body height 149.9 cm FADY SHI MD [facility] 02-10-2023 11:57-0400 Body weight 66.6 kg FADY SHI MD [facility] 02-10-2023 11:57-0400 Heart rate 64 /min FADY SHI MD [facility] 02-04-2023 13:07-0400 Body height 151.1 cm Abner Denisha HAND FRAME SURGICAL ELASTIC KNITTER.MASTER AUTOMOTIVE GLASS TECHNICIAN Work Phone: [facility] 02-04-2023 13:07-0400 Body weight 67.59 kg Abner Denisha HAND FRAME SURGICAL ELASTIC KNITTER.MASTER AUTOMOTIVE GLASS TECHNICIAN Work Phone: [facility] 02-04-2023 13:07-0400 Diastolic blood pressure 76 mm[Hg] Abner Denisha HAND FRAME SURGICAL ELASTIC KNITTER.MASTER AUTOMOTIVE GLASS TECHNICIAN Work Phone: [facility] 02-04-2023 13:07-0400 Heart rate 82 /min Abner Denisha HAND FRAME SURGICAL ELASTIC KNITTER.MASTER AUTOMOTIVE GLASS TECHNICIAN Work Phone: [facility] 02-04-2023 13:07-0400 SaO2% (BldA) [Mass fraction] 96 % Abner Denisha HAND FRAME SURGICAL ELASTIC KNITTER.MASTER AUTOMOTIVE GLASS TECHNICIAN Work Phone: [facility] 02-04-2023 13:07-0400 Systolic blood pressure 124 mm[Hg] Abner Denisha HAND FRAME SURGICAL ELASTIC KNITTER.MASTER AUTOMOTIVE GLASS TECHNICIAN Work Phone: [facility] 02-04-2023 10:29-0400 Blood Pressure Cuff Size FADY SHI MD [facility] 02-04-2023 10:29-0400 Blood Pressure Location FADY SHI MD [facility] 02-04-2023 10:29-0400 Blood Pressure Method FADY SHI MD [facility] 02-04-2023 10:29-0400 Body height 150 cm FADY SHI MD [facility] 02-04-2023 10:29-0400 Body temperature 98.06 [degF] FADY SHI MD [facility] 02-04-2023 10:29-0400 Body weight 67.6 kg FADY SHI MD [facility] 02-04-2023 10:29-0400 Diastolic Blood Pressure Non-Invasive 69 1 FADY SHI MD [facility] 02-04-2023 10:29-0400 Heart rate 65 /min FADY SHI MD [facility] 02-04-2023 10:29-0400 Systolic Blood Pressure Non-Invasive 149 1 FADY SHI MD [facility] 11-25-2022 15:45-0500 Body temperature 98.49 [degF] Eunice Joe MD Work Phone: [facility] 11-25-2022 15:45-0500 Body weight 67.68 kg Eunice Joe MD Work Phone: [facility] 11-25-2022 15:45-0500 Diastolic blood pressure 78 mm[Hg] Eunice Joe MD Work Phone: [facility] 11-25-2022 15:45-0500 Heart rate 82 /min Eunice Joe MD Work Phone: [facility] 11-25-2022 15:45-0500 Respiratory rate 18 /min Eunice Joe MD Work Phone: [facility] 11-25-2022 15:45-0500 SaO2% (BldA) [Mass fraction] 97 % Eunice Joe MD Work Phone: [facility] 11-25-2022 15:45-0500 Systolic blood pressure 124 mm[Hg] Eunice Joe MD Work Phone: [facility] 11-20-2022 03:01-0500 Diastolic blood pressure 74 mm[Hg] [facility] 11-20-2022 03:01-0500 Heart rate 68 /min [facility] 11-20-2022 03:01-0500 Respiratory rate 15 /min [facility] 11-20-2022 03:01-0500 SaO2% (BldA) [Mass fraction] 98 % [facility] 11-20-2022 03:01-0500 Systolic blood pressure 125 mm[Hg] [facility] 11-19-2022 22:34-0500 Body height 149.86 cm [facility] 11-19-2022 22:34-0500 Body mass index (BMI) [Ratio] 29.7 kg/m2 [facility] 11-19-2022 22:34-0500 Body temperature 97 [degF] [facility] 11-19-2022 22:34-0500 Body weight 66.67 kg [facility] 05-30-2022 10:24-0400 Body height 152.4 cm Respiratory Wstr Work Phone: [facility] 05-30-2022 10:24-0400 Body weight 70.49 kg Respiratory Wstr Work Phone: [facility] 03-25-2022 11:41-0400 Body height 149.[address] Eunice Joe Work Phone: [facility] Work Phone: 03-25-2022 11:41-0400 Body mass index (BMI) [Ratio] 31.1 kg/m2 Dr. Eunice Joe Work Phone: [facility] Work Phone: 03-25-2022 11:41-0400 Body temperature 98 [degF] Dr. Eunice Joe Work Phone: [facility] Work Phone: 03-25-2022 11:41-0400 Body weight 69.[address] Eunice Joe Work Phone: [facility] Work Phone: 03-25-2022 11:41-0400 Diastolic blood pressure 90 mm[Hg] Dr. Eunice Joe Work Phone: [facility] Work Phone: 03-25-2022 11:41-0400 Heart rate 77 /min Dr. Eunice Joe Work Phone: [facility] Work Phone: 03-25-2022 11:41-0400 Respiratory rate 18 /min Dr. Eunice Joe Work Phone: [facility] Work Phone: 03-25-2022 11:41-0400 SaO2% (BldA) [Mass fraction] 96 % Dr. Eunice Joe Work Phone: [facility] Work Phone: 03-25-2022 11:41-0400 Systolic blood pressure 130 mm[Hg] Dr. Eunice Joe Work Phone: [facility] Work Phone: 03-17-2022 15:53-0400 Body temperature 98.6 [degF] Dr. Eunice Joe Work Phone: [facility] Work Phone: 03-17-2022 15:53-0400 Diastolic blood pressure 79 mm[Hg] Dr. Eunice Joe Work Phone: [facility] Work Phone: 03-17-2022 15:53-0400 Heart rate 66 /min Dr. Eunice Joe Work Phone: [facility] Work Phone: 03-17-2022 15:53-0400 Respiratory rate 14 /min Dr. Eunice Joe Work Phone: [facility] Work Phone: 03-17-2022 15:53-0400 SaO2% (BldA) [Mass fraction] 98 % Dr. Eunice Joe Work Phone: [facility] Work Phone: 03-17-2022 15:53-0400 Systolic blood pressure 128 mm[Hg] Dr. Eunice Joe Work Phone: [facility] Work Phone: 03-17-2022 12:07-0400 Body height 149.[address] Eunice Joe Work Phone: [facility] Work Phone: 03-17-2022 12:07-0400 Body mass index (BMI) [Ratio] 36.3 kg/m2 Dr. Eunice Joe Work Phone: [facility] Work Phone: 03-17-2022 12:07-0400 Body weight 81.[address] Eunice Joe Work Phone: [facility] Work Phone: 02-12-2022 15:36-0400 Body temperature 98.4 [degF] Treatment Wstr Work Phone: [facility] 02-12-2022 15:36-0400 Body weight 73.94 kg Treatment Wstr Work Phone: [facility] 02-12-2022 15:36-0400 Diastolic blood pressure 85 mm[Hg] Treatment Wstr Work Phone: [facility] 02-12-2022 15:36-0400 Heart rate 65 /min Treatment Wstr Work Phone: [facility] 02-12-2022 15:36-0400 Systolic blood pressure 149 mm[Hg] Treatment Wstr Work Phone: [facility] 01-10-2022 11:20-0400 Diastolic blood pressure 78 mm[Hg] Eunice Joe MD Work Phone: [facility] 01-10-2022 11:20-0400 Systolic blood pressure 122 mm[Hg] Eunice Joe MD Work Phone: [facility] 01-10-2022 10:29-0400 Body weight 66.68 kg Eunice Joe MD Work Phone: [facility] 01-10-2022 10:29-0400 Heart rate 78 /min Eunice Joe MD Work Phone: [facility] Encounters Encounter Date Encounter Type Care Provider Facility Start: 04-21-2025 End: 04-21-2025 Patient encounter procedure Pulm Lab [facility] Work Phone: PULM [facility] Start: 04-21-2025 End: 04-21-2025 ambulatory Pulm Lab [facility] Work Phone: [facility] Comment on above: Spirometry Start: 04-12-2025 End: 04-20-2025 Telephone encounter Eunice Joe MD Work Phone: [facility] [place] Comment on above: Patient Update Start: 03-27-2025 End: 03-27-2025 Office outpatient visit 25 minutes Eunice Joe MD Work Phone: [facility] [place] Comment on above: Sinobronchitis (Prim lynda Dx); Iron deficiency anemia, unspecified iron deficiency anemia type; B12 deficiency; Grief reaction; Anxiety; Neuropathy; Breast cancer screening by mammogram; Spinal stenosis, lumbar region, without neurogenic claudication; Pain in left leg Start: 03-27-2025 End: 03-27-2025 ambulatory EUNICE JOE Facility:[facility] Start: 03-17-2025 End: 03-17-2025 Benedict Lemos Horvath HAND FRAME SURGICAL ELASTIC KNITTER.COMMERCIAL LEASING MANAGER Work Phone: [facility] [place] Comment on above: Refill Request Refill Start: 03-16-2025 End: 03-16-2025 Subsequent hospital visit by physician oJe [facility] Work Phone: Radiology Comment on above: Acute cough [R05.1] Start: 03-16-2025 End: 03-16-2025 Patient encounter procedure Octavio Salas HAND FRAME SURGICAL ELASTIC KNITTER.MASTER AUTOMOTIVE GLASS TECHNICIAN Work Phone: [facility] Comment on above: Acute cough (Primary Dx); Acute non-recurrent maxillary sinusitis Start: 03-16-2025 End: 03-16-2025 ambulatory EUNICE JOE Facility:[facility] Start: 03-09-2025 ambulatory Ar Young Facility:[facility] Start: 03-01-2025 End: 05-01-2025 Follow-up encounter Abner Denny HAND FRAME SURGICAL ELASTIC KNITTER.MASTER AUTOMOTIVE GLASS TECHNICIAN Work Phone: [facility] [place] Start: 02-28-2025 End: 02-28-2025 ambulatory ABNER DENNY Facility:[facility] Start: 02-27-2025 End: 02-27-2025 ambulatory Eunice Joe MD Work Phone: [facility] [place] Comment on above: Shortness of Breath Start: 02-23-2025 End: 02-23-2025 ambulatory EUNICE JOE Facility:[facility] Start: 02-17-2025 End: 02-17-2025 Patient encounter procedure Katherine Pham DO Work Phone: Orthopaedics Comment on above: Bilateral carpal carline shravan syndrome (Primary Dx); Primary osteoarthritis of both hands; 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 Start: 02-17-2025 End: 02-17-2025 ambulatory KATHERINE PHAM Facility:[facility] Start: 02-16-[address] EUNICE JOE MD Fac ility:[facility] Start: 02-09-2025 End: 02-09-2025 Telephone encounter Eunice Joe MD Work Phone: [facility] [place] Comment on above: Dr Georges Michele Dentist office requesting records Start: 02-08-2025 End: 02-08-2025 Refill Eunice Joe MD Work Phone: [facility] [place] Comment on above: Refill Request Start: 02-06-2025 End: 02-06-2025 ambulatory Eunice Joe MD Work Phone: [facility] [place] Comment on above: Xanax Start: 02-02-2025 End: 02-02-2025 ambulatory Eunice Joe Facility:[facility] Start: 01-25-2025 End: 01-25-2025 ambulatory FADY SHI MD Facility:[facility] Start: 01-25-2025 End: 01-25-2025 Patient encounter procedure FADY SHI MD [facility] Start: 01-20-2025 End: 01-24-[address] EUNICE JOE MD Facility:[facility] Start: 01-19-2025 End: 01-19-2025 ambulatory Eunice Joe Facility:[facility] Start: 01-12-2025 End: 01-12-2025 Refill Eunice Joe MD Work Phone: [facility] [place] Comment on above: Refill Request Start: 12-31-2024 End: 01-02-2025 ambulatory Eunice Joe MD Work Phone: [facility] [place] Comment on above: Tizanadine Start: 12-30-2024 End: 01-27-2025 ambulatory Eunice Joe MD Work Phone: [facility] [place] Comment on above: Medication Start: 12-22-2024 End: 12-22-2024 Subsequent hospital visit by physician Xr [facility] Work Phone: Radiology Comment on above: Acute cough [R05.1] Start: 12-22-2024 End: 12-22-2024 ambulatory KIKA THOMPSON Facility:[facility] Start: 12-22-2024 End: 12-22-2024 Patient encounter procedure Kika Thompson HAND FRAME SURGICAL ELASTIC KNITTER.MASTER AUTOMOTIVE GLASS TECHNICIAN Work Phone: [facility] Comment on above: Acute cough (Primary Dx); Rhinosinusitis Start: 12-14-2024 End: 12-14-2024 ambulatory ABNER DENNY Facility:[facility] Start: 12-14-2024 End: 12-14-2024 Patient encounter procedure Abner Denny HAND FRAME SURGICAL ELASTIC KNITTER.MASTER AUTOMOTIVE GLASS TECHNICIAN Work Phone: [facility] [place] Comment on above: Arthralgia of multip le joints (Primary Dx) Start: 12-03-2024 End: 12-03-2024 Office outpatient visit 25 minutes Eunice Joe MD Work Phone: [facility] [place] Comment on above: Acquired hypothyroid ism (Primary Dx); Osteoporosis with current pathological fracture with routine healing, unspecified osteoporosis type, subsequent encounter; Scoliosis of thoracolumbar spine, unspecified scoliosis type; Medullary sponge kidney; Stage 3a chronic kidney disease (HCC); Anxiety; Compression fracture of T12 vertebra, sequela; Anemia, unspecified type Start: 12-03-2024 End: 12-03-2024 ambulatory EUNICE JOE Facility:[facility] Start: 11-23-2024 End: 11-23-2024 ambulatory EUNICE JOE Facility:[facility] Start: 11-14-2024 End: 11-15-2024 Refill Eunice Joe MD Work Phone: [facility] [place] Comment on above: Refill Request Start: 11-13-2024 End: 11-14-2024 Get Medical Advice Eunice Joe MD Work Phone: [facility] [place] Comment on above: Refill Start: 10-14-2024 End: 10-17-2024 ambulatory Eunice Joe MD Work Phone: [facility] [place] Comment on above: Vaccinations Start: 09-22-2024 End: 09-22-2024 ambulatory Eunice Joe Facility:[facility] Start: 09-15-2024 End: 09-15-2024 ambulatory Eunice Joe Facility:[facility] Start: 09-15-2024 End: 09-15-2024 [facility] Start: 09-06-2024 End: 09-06-2024 ambulatory [facility] Facility:[facility] Start: 08-31-2024 End: 08-31-2024 Emergency department patient visit Eunice Joe Facility:[facility] Start: 08-25-2024 End: 08-25-2024 Patient encounter procedure Ruth Dukes APRN.CNP Work Phone: Neurology Comment on above: CHINTAN (obstructive sle ep apnea) (Primary Dx); Intolerance of continuous positive airway pressure (CPAP) ventilation Start: 08-25-2024 End: 08-25-2024 Telephone encounter Ruth Dukes APRN.CNP Work Phone: Neurology Comment on above: Orders Start: 08-25-2024 End: 08-25-2024 ambulatory RUTH DUKES Facility:[facility] Start: 08-18-2024 End: 08-18-2024 ambulatory [facility] Facility:[facility] Start: 08-17-2024 End: 08-17-2024 Telephone encounter Ruth Dukes APRN.CNP Work Phone: Neurology Comment on above: Appointment Start: 08-12-2024 End: 08-12-2024 Emergency department patient visit Eunice Joe Facility:[facility] Start: 08-10-2024 End: 08-10-2024 Office outpatient visit 25 minutes Eunice Joe MD Work Phone: Internal Medicine [place] Comment on above: Chronic midline low back pain with left-sided sciatica (Primary Dx); Pain in left hip; Recurrent major depressive disorder, in remission (HCC); Acquired hypothyroidism; Essential hypertension; Grief reaction; Anxiety; Age-related osteoporosis without current pathological fracture; Encounter for long-term current use of medication; Gastroesophageal reflux disease without esophagitis Start: 08-10-2024 End: 08-10-2024 ambulatory [facility] Facility:[facility] Start: 08-04-2024 End: 08-04-2024 ambulatory [facility] Facility:[facility] Start: 07-25-2024 End: 07-25-2024 ambulatory Eunice Joe Facility:[facility] Start: 07-21-2024 End: 07-21-2024 ambulatory Eunice Joe Facility:[facility] Start: 07-13-2024 End: 07-13-2024 ambulatory FADY SHI MD Facility:A Start: 07-13-2024 End: 07-13-2024 Patient encounter procedure FADY SHI MD [facility] Start: 06-30-2024 End: 06-30-2024 ambulatory FADY SHI MD Facility:[facility] Start: 06-30-2024 End: 06-30-2024 Patient encounter procedure FADY SHI MD [facility] Start: 06-28-2024 End: 06-28-2024 ambulatory EUNICE JOE Facility:[facility] Start: 06-28-2024 End: 06-28-2024 Office outpatient visit 25 minutes Eunice Joe MD Work Phone: Internal Medicine [place] Comment on above: Anxiety (Primary Dx) ; Grief reaction Start: 06-27-2024 End: 06-29-2024 ambulatory Eunice Joe MD Work Phone: Internal Medicine [place] Comment on above: Memory Loss Start: 06-16-2024 End: 06-20-2024 ambulatory Ruth Dukes HAND FRAME SURGICAL ELASTIC KNITTER.MASTER AUTOMOTIVE GLASS TECHNICIAN Work Phone: Neurology Comment on above: Cpap Start: 06-14-2024 End: 06-14-2024 Refill Aminta Horvath HAND FRAME SURGICAL ELASTIC KNITTER.COMMERCIAL LEASING MANAGER Work Phone: Internal Medicine [place] Comment on above: Refill Request Start: 06-11-2024 End: 06-11-2024 ambulatory EUNICE JOE Facility:[facility] Start: 06-10-2024 End: 06-10-2024 ambulatory Eunice Joe Facility:[facility] Start: 06-07-2024 End: 06-07-2024 ambulatory ABNER WILDERR Facility:[facility] Start: 06-07-2024 End: 06-07-2024 Patient encounter procedure Abner Wilderr HAND FRAME SURGICAL ELASTIC KNITTER.MASTER AUTOMOTIVE GLASS TECHNICIAN Work Phone: Internal Medicine [place] Comment on above: Sinobronchitis (Prim lynda Dx); History of COVID-19 Start: 06-03-2024 ambulatory Claude Cast Facility :[facility] Start: 05-18-2024 Refill Eunice hickman MD Work Phone: Internal Medicine [place] Comment on above: Refill Request Start: 04-18-2024 ambulatory Abner Wilderr HAND FRAME SURGICAL ELASTIC KNITTER.MASTER AUTOMOTIVE GLASS TECHNICIAN Work Phone: Internal Medicine [place] Comment on above: Thank you Start: 04-17-2024 ambulatory Abner Wilderr HAND FRAME SURGICAL ELASTIC KNITTER.MASTER AUTOMOTIVE GLASS TECHNICIAN Work Phone: Internal Medicine [place] Comment on above: Rf Refill Request Start: 04-11-2024 Refill Abner Denny HAND FRAME SURGICAL ELASTIC KNITTER.MASTER AUTOMOTIVE GLASS TECHNICIAN Work Phone: Internal Medicine [place] Comment on above: Refill Request Start: 03-25-2024 End: 03-25-2024 Patient encounter procedure Ruth Roseline HAND FRAME SURGICAL ELASTIC KNITTER.MASTER AUTOMOTIVE GLASS TECHNICIAN Work Phone: Neurology Comment on above: CHINTAN (obstructive sle ep apnea) (Primary Dx); Essential hypertension Start: 03-16-2024 End: 03-16-2024 Office outpatient visit 25 minutes Eunice Joe MD Work Phone: Internal Medicine [place] Comment on above: Severe anxiety with panic (Primary Dx); Age-related osteoporosis without current pathological fracture; CHINTAN (obstructive sleep apnea) Start: 03-03-2024 ambulatory Eunice hickman MD Work Phone: Internal Medicine [place] Comment on above: Headache Start: 02-22-2024 Refill Eunice hickman MD Work Phone: Internal Medicine [place] Comment on above: Refill Request Start: 02-17-2024 ambulatory Eunice hickman MD Work Phone: Internal Medicine [facility] [place] Start: 02-08-2024 Refill Eunice hickman MD Work Phone: Internal Medicine [place] Comment on above: Refill Request Start: 01-29-2024 Non-patient / Non-visit Dr. Lucila Joe Work Phone: [facility] Start: 01-29-2024 End: 01-29-[address] Eunice Joe Work Phone: [facility] Work Phone: Start: 01-29-2024 End: 01-29-[address] Eunice Joe Work Phone: [facility]Cardi[facility] Services Work Phone: Start: 01-25-2024 Refill Eunice hickman MD Work Phone: Internal Medicine [place] Comment on above: Refill Request Start: 01-20-2024 End: 01-20-[address] Eunice Joe Work Phone: [facility] Work Phone: Start: 01-20-2024 End: 01-20-[address] Eunice Joe Work Phone: [facility]-Sleep Lab Work Phone: Start: 01-06-2024 End: 01-06-[address] Eunice Joe Work Phone: [facility] Work Phone: Start: 12-16-2023 End: 12-17-2023 ambulatory FADY SHI MD Facility:A Start: 12-16-2023 End: 12-16-2023 Patient encounter procedure FADY SHI MD [facility] Start: 12-01-2023 End: 12-01-[address] Eunice Joe Work Phone: [facility]-Outpatient Bone Densitometry Work Phone: Start: 11-11-2023 End: 11-11-2023 Office outpatient visit 25 minutes Eunice Joe MD Work Phone: Internal Medicine [place] Comment on above: Strain of right shou lder, initial encounter (Primary Dx); Anxiety; Gastroesophageal reflux disease, unspecified whether esophagitis present; Recurrent major depressive disorder, in remission ([facility]); Grief reaction; Encounter for long-term current use of medication; Anemia, unspecified type; Hypokalemia; HARTMANN (dyspnea on exertion); Cervical disc disorder of mid-cervical region; Cervical radiculopathy Start: 09-07-2023 End: 09-07-2023 Emergency department patient visit [facility] Work Phone: Start: 08-12-2023 Telephone encounter Eunice muro MD Work Phone: Internal Medicine [place] Comment on above: Refill Request Start: 07-04-2023 End: 07-04-2023 Patient encounter procedure Rachna Malloy APRN.MASTER AUTOMOTIVE GLASS TECHNICIAN Work Phone: [place] [facility] Comment on above: Acute non-recurrent frontal sinusitis (Primary Dx) Start: 06-29-2023 ambulatory Eunice hickman MD Work Phone: Internal Medicine [place] Comment on above: med question Refill Request Start: 06-25-2023 End: 06-25-2023 Patient encounter procedure Katherine Pham DO Work Phone: Orthopaedics Comment on above: Bilateral carpal carline shravan syndrome (Primary Dx) Start: 06-17-2023 Refill Eunice hickman MD Work Phone: Internal Medicine [place] Comment on above: Refill Request Start: 06-10-2023 End: 06-11-2023 ambulatory FADY SHI MD Facility:A Start: 06-05-2023 End: 06-05-2023 Office outpatient visit 40 minutes Eunice Joe MD Work Phone: Internal Medicine [place] Comment on above: Acute midline thorac ic back pain (Primary Dx); Chronic midline low back pain with left-sided sciatica; Anxiety; Recurrent major depressive disorder, in partial remission (HCC); Essential hypertension; Grief reaction; Encounter for immunization Start: 06-01-2023 End: 06-06-2023 ambulatory FADY SHI MD Facility: Start: 06-01-2023 End: 06-05-2023 Outreach Lab FADY SHI MD [facility] Start: 05-22-2023 Refill Eunice hickman MD Work Phone: Internal Medicine [place] Comment on above: Refill Request Start: 05-11-2023 Refill Eunice hickman MD Work Phone: Internal Medicine [place] Comment on above: Refill Request Start: 04-29-2023 ambulatory KATHERINE PHAM Facility:[facility] Start: 04-29-2023 End: 04-29-2023 Patient encounter procedure Katherine Pham DO Work Phone: Orthopaedics Comment on above: Bilateral carpal carline shravan syndrome (Primary Dx); [facility] arthritis; Pseudogout Start: 04-29-2023 End: 04-29-2023 Subsequent hospital visit by physician [facility] Work Phone: Radiology Comment on above: Bilateral hand pain [M79.641, M79.642] Start: 04-06-2023 Non-patient / Non-visit Dr. Lucila Joe Work Phone: [facility] Start: 04-06-2023 End: 04-06-2023 Admission to same day surgery center Dr. Eunice Joe Work Phone: [facility]-Endoscopy Start: 04-06-2023 End: 04-06-[address] Eunice Joe Work Phone: [facility] Work Phone: Start: 03-26-2023 Telephone encounter Fady noe APRN.CNP Work Phone: [facility] Comment on above: Results Start: 03-25-2023 End: 03-25-2023 Patient encounter procedure Koby GARCIA Work Phone: [facility] Comment on above: URI, acute (Primary Dx); Sore throat Start: 03-02-2023 End: 03-03-2023 ambulatory FADY SHI MD Facility:A Start: 02-25-2023 Refill Eunice hickman MD Work Phone: Internal Medicine [place] Comment on above: Refill Request Start: 02-10-2023 End: 02-10-2023 ambulatory FADY SHI MD Facility:[facility] Start: 02-10-2023 End: 02-10-2023 SAME DAY STAY FADY SHI MD [facility] Start: 02-09-2023 Telephone encounter Eunice muro MD Work Phone: Internal Medicine [place] Comment on above: Pre-Op Forms Start: 02-06-2023 Telephone encounter Eunice muro MD Work Phone: Internal Medicine [place] Comment on above: Pre-Op Exam (form) Start: 02-04-2023 End: 02-04-2023 Patient encounter procedure Abner Denny APRN.MASTER AUTOMOTIVE GLASS TECHNICIAN Work Phone: Internal Medicine [place] Comment on above: Bladder tumor (Prima ry Dx); Pre-op exam; Essential hypertension; Other hyperlipidemia; Medullary sponge kidney; Acquired hypothyroidism; Stage 3a chronic kidney disease (HCC); Paroxysmal SVT (supraventricular tachycardia) (HCC); Clostridium difficile infection Start: 02-04-2023 End: 02-04-2023 Preprocedural examination done Abner Denny APRN.MASTER AUTOMOTIVE GLASS TECHNICIAN Work Phone: Internal Medicine [place] Start: 02-04-2023 End: 02-05-2023 ambulatory FADY SHI MD Facility:A Start: 02-04-2023 End: 02-04-2023 Admission to establishment FADY SHI MD [facility] Start: 02-02-2023 End: 02-03-2023 ambulatory FADY SHI MD Facility:A Start: 02-02-2023 Telephone encounter Abner Hien forrest VANEGAS.MASTER AUTOMOTIVE GLASS TECHNICIAN Work Phone: Internal Medicine [place] Comment on above: Appointment Start: 02-02-2023 End: 02-02-2023 Patient encounter procedure FADY SHI MD [facility] Start: 01-31-2023 End: 01-31-[address] Eunice Joe Work Phone: [facility] Work Phone: Start: 01-31-2023 End: 01-31-[address] Eunice Joe Work Phone: [facility]-Laboratory, Specimen Start: 01-30-2023 Refill Amintaromina Horvath APRN.COMMERCIAL LEASING MANAGER Work Phone: Internal [facility] Comment on above: Refill Request Start: 01-28-2023 End: 01-28-[address] Eunice Joe Work Phone: [facility] Work Phone: Start: 01-28-2023 End: 01-28-[address] Eunice Joe Work Phone: [facility]-Laboratory Start: 01-28-2023 End: 01-28-[address] Eunice Joe Work Phone: [facility] Gastroenterology Start: 01-01-2023 End: 01-01-[address] Eunice Joe Work Phone: [facility] Start: 12-19-2022 End: 12-19-[address] Eunice Joe Work Phone: [facility]-Laboratory, Specimen Start: 12-08-2022 Get Medical Advice Eunice cardona MD Work Phone: Internal Medicine [place] Comment on above: Dexa scan order Start: 11-25-2022 End: 11-25-2022 Office outpatient visit 25 minutes Eunice Joe MD Work Phone: Internal Medicine [place] Comment on above: Near syncope (Primar y Dx); Gastroesophageal reflux disease, unspecified whether esophagitis present; Diarrhea, unspecified type; Anemia, unspecified type; Chronic midline low back pain without sciatica Start: 11-19-2022 End: 11-20-2022 [facility] Start: 10-31-2022 Telephone encounter Eunice muro MD Work Phone: Internal Medicine [place] Comment on above: Faxed to Dr. Avina Start: 07-15-2022 Refill Eunice hickman MD Work Phone: Internal Medicine [place] Comment on above: Refill Request Start: 05-30-2022 End: 05-30-2022 ambulatory Respiratory Therapist [facility] Work Phone: Pulmonary Medicine Comment on above: Spirometry Start: 05-30-2022 End: 05-30-2022 [facility] encounter [facility]: [facility] Start: 05-11-2022 Refill Eunice hickman MD Work Phone: Internal Medicine [place] Comment on above: Refill Request Start: 05-05-2022 ambulatory Eunice hickman MD Work Phone: Internal Medicine [place] Comment on above: Breathing Problem Start: 03-25-2022 Telephone encounter Eunice muro MD Work Phone: Internal Medicine [place] Comment on above: Patient Update Start: 03-25-2022 End: 03-25-2022 Emergency department patient visit Dr[facility] Start: 03-17-2022 End: 03-17-2022 Emergency department patient visit Dr. Eunice Joe Work Phone: [facility]-Emergency Department Start: 02-18-2022 Refill Eunice hickman MD Work Phone: Internal Medicine [place] Comment on above: Refill Request Start: 02-14-2022 End: 02-14-[address] Eunice Joe Work Phone: [facility] Orthopaedic Specia Start: 02-12-2022 End: 02-12-2022 Infusion Center Treatment Rm 9 Cipriano [facility] Work Phone: Hematology/Oncology Comment on above: Cervical disc disord er of mid-cervical region (Primary Dx); Spinal stenosis, lumbar region, without neurogenic claudication; Osteoporosis with current pathological fracture with routine healing, unspecified osteoporosis type, subsequent encounter Start: 01-16-2022 Refill Eunice hickman MD Work Phone: Internal Medicine [place] Comment on above: Refill Request Start: 01-10-2022 End: 01-10-2022 Patient encounter procedure Eunice Joe MD Work Phone: Internal Medicine [place] Comment on above: Acquired hypothyroid ism (Primary Dx); Essential hypertension; Chronic midline low back pain with left-sided sciatica; Pain in left hip; Colon cancer screening; Vitamin D deficiency; Mixed hyperlipidemia; Recurrent major depressive disorder, in remission (HCC) Start: 12-26-2021 End: 12-26-[address] Eunice Joe Work Phone: [facility]Laboratory Start: 12-03-2021 ambulatory Lashell Older HAND FRAME SURGICAL ELASTIC KNITTER .MASTER AUTOMOTIVE GLASS TECHNICIAN Work Phone: Internal Medicine [place] Comment on above: Bone density results Start: 12-03-2021 E-mail encounter fro m caregiver Lashell Older HAND FRAME SURGICAL ELASTIC KNITTER.MASTER AUTOMOTIVE GLASS TECHNICIAN Work Phone: [facility] Start: 11-26-2021 End: 11-26-[address] Eunice Joe Work Phone: [facility]-Outpatient Bone Densitometry Start: 08-07-2021 End: 08-07-2021 ambulatory AR YOUNG Facility:[facility] Start: 03-13-2021 ambulatory EUNICE JOE Facility: [facility] Start: 09-20-[address] Alvarado Joe Work Phone: [facility] Procedures Date Procedure Procedure Detail Performing Clinician Start: 04-21-2025 Nitric oxide gas determination Eunice Joe MD Work Phone: Start: 04-21-2025 Plethysmography lung volumes w/wo airway resist Eunice Joe MD Work Phone: Start: 03-16-2025 Radiologic exam ches t 2 views Octavio Salas HAND FRAME SURGICAL ELASTIC KNITTER.MASTER AUTOMOTIVE GLASS TECHNICIAN Work Phone: Start: 02-17-2025 Arthrocentesis aspir &/inj interm jt/burs w/o us Katherine Pham DO Work Phone: Start: 12-22-2024 Radiologic exam ches t 2 views Kika Thompson HAND FRAME SURGICAL ELASTIC KNITTER.MASTER AUTOMOTIVE GLASS TECHNICIAN Work Phone: Start: 01-29-2024 Cardiovascular stres s test using pharmacologic stress agent Dr. Eunice Joe Work Phone: Start: 12-01-2023 Dual energy X-ray absorptiometry Dr. Eunice Joe Work Phone: Start: 09-07-2023 Computed tomography of abdomen and pelvis with intravenous contrast Start: 06-25-2023 Injection therapeuti c carpal tunnel Katherine Pham DO Work Phone: Start: 04-29-2023 Radex hand minimum 3 views Dorinda SINGERC Work Phone: Start: 04-06-2023 End: 04-06-[address] Eunice Joe Work Phone: Start: 03-25-2023 COVID WITH FLUA+B, ROUTINE Koby GARCIA Work Phone: Start: 03-25-2023 STREP A MOLECULAR (POC) Koby GARCIA Work Phone: Start: 01-15-2023 Mammography Aminta Angelito ks HAND FRAME SURGICAL ELASTIC KNITTER.COMMERCIAL LEASING MANAGER Work Phone: Start: 01-01-2023 Computed tomography of abdomen and pelvis with contrast Dr. Eunice Joe Work Phone: Start: 12-10-2022 Cystoscopy FADY DE JESUS MD Start: 11-20-2022 CT of thorax, abdome n and pelvis with contrast Start: 05-30-2022 Brncdilat rspse spmt ry pre&post-brncdilat admn Aminta Horvath HAND FRAME SURGICAL ELASTIC KNITTER.COMMERCIAL LEASING MANAGER Work Phone: Start: 03-25-2022 CT cervical spine wi thout contrast Dr. Eunice Joe Work Phone: Start: 03-25-2022 CT of head without contrast Dr. Eunice Joe Work Phone: Start: 03-17-2022 Plain x-ray of elbow Dr Nathanael Joe Work Phone: Start: 03-17-2022 Plain x-ray of pelvi s and lower extremity Dr. Eunice Joe Work Phone: Start: 03-17-2022 Plain X-ray of shoulder Dr. Eunice Joe Work Phone: Start: 03-17-2022 Plain x-ray of wrist Dr Nathanael Joe Work Phone: Start: 03-17-[address] Nathanael Joe Work Phone: Start: 03-17-2022 Radiography of thora cic spine Dr. Eunice Joe Work Phone: Start: 03-17-2022 Radiologic examinati on of knee Dr. Eunice Joe Work Phone: Start: 03-17-2022 X-ray of lumbar spin e, two or three views Dr. Eunice Joe Work Phone: Start: 02-14-2022 Plain x-ray of wrist Dr Nathanael Joe Work Phone: Start: 01-07-2022 Lipid 1996 panel - S agustín or Plasma Katherine Vero DO Work Phone: Start: 11-26-2021 Dual energy X-ray absorptiometry Dr. Eunice Joe Work Phone: Start: 06-24-2021 Mammography Eunice orellana MD Work Phone: Start: 10-12-2020 Ablation of atrioven tricular node FADY SHI MD Start: 01-02-2010 Colonoscopy Eunice orellana MD Work Phone: Appendectomy FADY SHI MD Cataract extraction and insertion of intraocular lens FADY SHI MD Comment on above: bilateral Clostridium difficil e detection Dr. Eunice Joe Work Phone: Combined anteroposte rior colporrhaphy FADY SHI MD Enteric Bacteriology Dr. Christi Joe Work Phone: Excision of bunion FADY REHMAN MD Lactoferrin measurement Dr. Eunice Joe Work Phone: Laminectomy and discectomy Sonia SHI MD Nucleic acid assay Dr. Eunice Joe Work Phone: Oophorectomy FADY SHI MD Comment on above: bilateral Repair of stress incontinence by suprapubic sling FADY SHI MD Tendon repair by dis concetta insertion FADY HSI MD Total replacement of hip [place] RIKI SHI MD Comment on above: left Plan of Treatment Date Care Activity Detail Author Start: 04-06-2028 Colonoscopy COLONOSCOPY [facility] Start: 04-06-2028 COLORECTAL CANCER SCREENING COLORECTAL CANCER SCREENING [facility] Start: 04-06-2028 Screening for malignant neoplasm of colon [facility] Start: 02-24-2028 Diabetes Screening Diabetes Screening [facility] Start: 11-23-2027 Diabetes Screening Diabetes Screening [facility] Start: 06-11-2027 Diabetes Screening Diabetes Screening [facility] Start: 03-10-2027 Diabetes Screening Diabetes Screening [facility] Start: 01-07-2027 Lipid 1996 panel - Serum or Plasma Lipid Screening [facility] Start: 01-07-2027 Lipid panel Lipid Screening [facility] Start: 01-07-2027 LIPID SCREEN LIPID SCREEN [facility] Start: 11-07-2026 Diabetes Screening Diabetes Screening [facility] Start: 03-27-2026 Annual PCP Team Chronic Disease Visit Annual PCP Team Chronic Disease Visit [facility] Start: 03-27-2026 Covid-19 Vaccine () Covid-19 Vaccine () [facility] Comment on above: Postponed from 12/05/2024 (Declined at t his time) Start: 02-28-2026 Annual PCP Team Chronic Disease Visit Annual PCP Team Chronic Disease Visit [facility] Start: 02-28-2026 BP Controlled (<130/80) BP Controlled (<130/80) [facility] Start: 02-23-2026 Complete blood count Hemoglobin/Hematocrit [facility] Start: 02-23-2026 Creatinine measurement Serum Creatinine [facility] Start: 12-14-2025 Annual PCP Team Chronic Disease Visit Annual PCP Team Chronic Disease Visit [facility] Start: 12-03-2025 Annual PCP Team Chronic Disease Visit Annual PCP Team Chronic Disease Visit [facility] Start: 12-01-2025 Screening for osteoporosis Bone Density Screening [facility] Start: 11-26-2025 DIABETES SCREEN DIABETES SCREEN [facility] Start: 11-26-2025 Diabetes Screening Diabetes Screening [facility] Start: 11-23-2025 Complete blood count Hemoglobin/Hematocrit [facility] Start: 11-23-2025 Creatinine measurement Serum Creatinine [facility] Start: 10-31-2025 End: 10-31-2025 Patient encounter procedure 10/31/2025 10:20 AM EST Office Visit Internal Medicine [place] [facility] [place] [address] Eunice Joe MD [address] [facility] [place], [place] [id number] 4 month f/up Internal Medicine [place] Comment on above: 4 month f/up Start: 08-10-2025 Annual PCP Team Chronic Disease Visit Annual PCP Team Chronic Disease Visit [facility] Start: 08-10-2025 Covid-19 Vaccine () Covid-19 Vaccine () [facility] Comment on above: Postponed from 06/12/2024 (Declined at t his time) Start: 08-07-2025 End: 08-07-2025 Patient encounter procedure 08/07/2025 2:40 PM EDT Office Visit Internal Medicine [place] [address] [facility] [place], [place] [id number] Eunice Joe MD [address] [facility] [place], [place] [id number] 4 month f/u Internal Medicine [place] Comment on above: 4 month f/u Start: 06-28-2025 Annual PCP Team Chronic Disease Visit Annual PCP Team Chronic Disease Visit [facility] Start: 06-12-2025 Influenza vaccination Influenza Vaccine (#1) [facility] Start: 06-11-2025 Creatinine measurement Serum Creatinine [facility] Start: 06-07-2025 Annual PCP Team Chronic Disease Visit Annual PCP Team Chronic Disease Visit [facility] Start: 04-21-2025 End: 04-21-2025 ambulatory [facility]UL[facility] Comment on above: Chronic cough [R05.3] Start: 04-10-2025 Influenza vaccination Influenza Vaccine (#1) [facility] Comment on above: Postponed from 06/12/2024 (Declined at t his time) Start: 03-27-2025 End: 03-27-2025 Patient encounter procedure 03/27/2025 11:00 AM EDT Office Visit Internal Medicine [place] [address] [facility] [place], [place] [id number] Eunice Joe MD [address] [facility] [place], [place] [id number] 4 month follow up Internal Medicine [place] Comment on above: 4 month follow up Start: 03-25-2025 Screening for malignant neoplasm of breast Mammogram Screening [facility] Start: 03-16-2025 Annual PCP Team Chronic Disease Visit Annual PCP Team Chronic Disease Visit [facility] Start: 03-10-2025 Complete blood count Hemoglobin/Hematocrit [facility] Start: 03-10-2025 Creatinine measurement Serum Creatinine [facility] Start: 02-28-2025 End: 02-28-2025 Patient encounter procedure 02/28/2025 3:40 PM EDT Office Visit Internal Medicine [place] [address] [place], [place] [address] Abner Denny APRN.MASTER AUTOMOTIVE GLASS TECHNICIAN [address] [place], [place] [address] SOB on exertion for several months. See protocol. Internal Medicine [place] Comment on above: SOB on exertion for several months. See protocol. Start: 02-17-2025 End: 02-17-2025 Patient encounter procedure 02/17/2025 11:45 AM EDT Office Visit Orthopaedics [address] [address] Katherine Pham DO [address] [place], [place] [address] Painful wrists Orthopaedics Comment on above: Painful wrists Start: 02-11-2025 DIABETES SCREEN DIABETES SCREEN [facility] Start: 01-13-2025 COLOGUARD (FIT-DNA) COLOGUARD (FIT-DNA) [facility] Start: 01-13-2025 Screening for malignant neoplasm of colon Cologuard (FIT-DNA) [facility] Start: 12-05-2024 Covid-19 Vaccine () Covid-19 Vaccine () [facility] Start: 11-28-2024 End: 11-28-2024 Patient encounter procedure 11/28/2024 1:40 PM EST Office Visit Internal Medicine [place] [address] [place], [place] [id number] Eunice Joe MD [address] [place] [address] 4 month follow up Internal Medicine [place] Comment on above: 4 month follow up Start: 11-11-2024 Annual PCP Team Chronic Disease Visit Annual PCP Team Chronic Disease Visit [facility] Start: 11-07-2024 Creatinine measurement Serum Creatinine [facility] Start: 10-12-2024 Advance Directive Discussion Advance Directive Discussion [facility] Start: 08-25-2024 End: 08-25-2024 Patient encounter procedure Neurology Comment on above: 31-90 day follow up 31-90 day follow up CHINTAN, marissa 03/25/24 RT Start: 08-10-2024 End: 08-10-2024 Patient encounter procedure 08/10/2024 11:00 AM EDT Office Visit Internal Medicine [place] [address] [place] [address] Eunice Joe MD [address] [place] [address] 4 month follow up Internal Medicine [place] Comment on above: 4 month follow up Start: 08-01-2024 DIABETES SCREEN DIABETES SCREEN [facility] Start: 07-01-2024 End: 07-01-2024 Patient encounter procedure 07/01/2024 10:30 AM EDT Office Visit Neurology [address] [place] [address] Ruth Dukes, GUILHERME.MASTER AUTOMOTIVE GLASS TECHNICIAN [address] [place] [address] 31-90 day follow up Neurology Comment on above: 31-90 day follow up Start: 06-12-2024 Covid-19 Vaccine ( season) Covid-19 Vaccine ( season) [facility] Start: 06-12-2024 Covid-19 Vaccine ( season) Covid-19 Vaccine ( season) [facility] Start: 06-12-2024 Influenza vaccination [facility] Start: 06-05-2024 ANNUAL PCP TEAM CHRONIC DISEASE VISIT ANNUAL PCP TEAM CHRONIC DISEASE VISIT [facility] Start: 06-05-2024 BP CONTROLLED (<130/80) BP CONTROLLED (<130/80) [facility] Start: 06-05-2024 COVID-19 VACCINE (4 - Pfizer series) COVID-19 VACCINE (4 - Pfizer series) [facility] Comment on above: Postponed from 11/11/2021 (Declined at t his time) Start: 03-16-2024 End: 03-16-2024 Patient encounter procedure 03/16/2024 3:00 PM EDT Office Visit Internal Medicine [place] [address] [facility] [place] [id number] Eunice Joe MD [address] [place] [place] [id number] 4-5 month follow up Internal Medicine [place] Comment on above: 4-5 month follow up Start: 03-11-2024 End: 06-10-2024 CBC panel - Blood by Automated count CBC Lab Routine Encounter for long-term current use of medication Anemia, unspecified type Expected: 03/11/2024 (Approximate), Expires: 06/10/2024 [facility] Work Phone: Comment on above: Expected: 03/11/2024 (Approximate), Expi res: 06/10/2024 Start: 03-11-2024 End: 06-10-2024 Comprehensive metabolic 2000 panel - Serum or Plasma COMP METABOLIC PANEL Lab Routine Encounter for long-term current use of medication Hypokalemia Expected: 03/11/2024 (Approximate), Expires: 06/10/2024 [facility] Work Phone: Comment on above: Expected: 03/11/2024 (Approximate), Expi res: 06/10/2024 Start: 03-11-2024 End: 03-11-2024 ambulatory 03/11/2024 10:15 AM EDT [facility] [address] [facility] [place] [address] [facility] Start: 02-05-2024 ANNUAL PCP TEAM CHRONIC DISEASE VISIT ANNUAL PCP TEAM CHRONIC DISEASE VISIT [facility] Start: 02-05-2024 BP CONTROLLED (<130/80) BP CONTROLLED (<130/80) [facility] in Start: 01-16-2024 Mammography [facility] Start: 01-16-2024 Screening for malignant neoplasm of breast Mammogram Screening [facility] Start: 11-26-2023 HEMOGLOBIN/HEMATOCRIT HEMOGLOBIN/HEMATOCRIT [facility] Start: 11-26-2023 SERUM CREATININE SERUM CREATININE [facility] Start: 11-25-2023 ANNUAL PCP TEAM CHRONIC DISEASE VISIT ANNUAL PCP TEAM CHRONIC DISEASE VISIT [facility] Start: 11-25-2023 BP CONTROLLED (<130/80) BP CONTROLLED (<130/80) [facility] in Start: 11-25-2023 SHINGRIX VACCINE (1 of 2) SHINGRIX VACCINE (1 of 2) [facility] Comment on above: Postponed from 2000 (Declined at t his time) Start: 11-25-2023 Urine microalbumin profile [facility] Comment on above: Postponed from 02/26/2022 (Declined at t his time) Start: 10-17-2023 ANNUAL PCP TEAM CHRONIC DISEASE VISIT ANNUAL PCP TEAM CHRONIC DISEASE VISIT [facility] Start: 10-12-2023 Advance Directive Discussion Advance Directive Discussion [facility] Start: 09-07-2023 [facility] Start: 09-07-2023 [facility] Start: 06-12-2023 Covid-19 Vaccine ( season) Covid-19 Vaccine ( season) [facility] Start: 06-12-2023 Influenza vaccination [facility] Start: 05-06-2023 BP CONTROLLED (<130/80) BP CONTROLLED (<130/80) [facility] in Start: 04-06-2023 Patient discharge [facility] Start: 03-29-2023 ANNUAL PCP TEAM CHRONIC DISEASE VISIT ANNUAL PCP TEAM CHRONIC DISEASE VISIT [facility] Start: 03-29-2023 BP CONTROLLED (<130/80) BP CONTROLLED (<130/80) [facility] in Start: 01-31-2023 Procedure [facility] Start: 01-31-2023 Protein measurement [facility] Start: 01-28-2023 Immunoglobulin measurement [facility] Start: 01-28-2023 Serum immunofixation [facility] Start: 01-28-2023 [facility] Start: 01-13-2023 Colonoscopy COLONOSCOPY [facility] Start: 01-13-2023 COLORECTAL CANCER SCREENING COLORECTAL CANCER SCREENING [facility] Start: 01-10-2023 ANNUAL PCP TEAM CHRONIC DISEASE VISIT ANNUAL PCP TEAM CHRONIC DISEASE VISIT [facility] Start: 01-10-2023 BP CONTROLLED (<130/80) BP CONTROLLED (<130/80) [facility] in Start: 10-12-2022 ADVANCE DIRECTIVE DISCUSSION ADVANCE DIRECTIVE DISCUSSION [facility] Start: 06-24-2022 Mammography MAMMOGRAM [facility] Start: 06-12-2022 Influenza vaccination INFLUENZA (#1) [facility] Start: 02-26-2022 Urine microalbumin profile [facility] Start: 02-11-2022 End: 04-13-2022 Comprehensive metabolic 2000 panel - Serum or Plasma COMP METABOLIC PANEL Lab Routine Osteoporosis with current pathological fracture with routine healing, unspecified osteoporosis type, subsequent encounter Expected: 02/11/2022 (Approximate), Expires: 04/13/2022 [facility] Work Phone: Comment on above: Expected: 02/11/2022 (Approximate), Expi res: 04/13/2022 Start: 01-23-2022 SHINGRIX VACCINE (1 of 2) SHINGRIX VACCINE (1 of 2) [facility] Comment on above: Postponed from 2000 (Declined at t his time) Start: 01-15-2022 COVID-19 VACCINE (4 - Booster for Pfizer series) COVID-19 VACCINE (4 - Booster for Pfizer series) [facility] Start: 01-14-2022 COLORECTAL CANCER SCREENING COLORECTAL CANCER SCREENING [facility] Start: 11-11-2021 COVID-19 VACCINE (4 - Booster for Pfizer series) COVID-19 VACCINE (4 - Booster for Pfizer series) [facility] Start: 11-11-2021 COVID-19 VACCINE (4 - Pfizer series) COVID-19 VACCINE (4 - Pfizer series) [facility] Start: 09-14-2020 Screening for osteoporosis Bone Density Screening [facility] Start: 01-03-2020 Colonoscopy COLONOSCOPY [facility] Start: 01-03-2020 COLORECTAL CANCER SCREENING COLORECTAL CANCER SCREENING [facility] Start: 06-12-2015 Medicare Annual Wellness Visit Medicare Annual Wellness Visit [facility] Start: 2010 RSV Vaccine (1 - 1-dose 60+ series) RSV Vaccine (1 - 1-dose 60+ series) [facility] Start: 2000 SHINGRIX VACCINE (1 of 2) SHINGRIX VACCINE (1 of 2) [facility] Start: 1995 COLOGUARD (FIT-DNA) COLOGUARD (FIT-DNA) [facility] Start: [address] COLONOGRAPHY [facility] Start: 1995 FECAL OCCULT BLOOD FECAL OCCULT BLOOD [facility] Start: 1995 Screening for malignant neoplasm of colon [facility] Start: 1995 SIGMOIDOSCOPY SIGMOIDOSCOPY [facility] Start: 1968 BP CONTROLLED (<130/80) BP CONTROLLED (<130/80) [facility] inic End: 08-10-2025 25-hydroxyvitamin D3 [Mass/volume] in Serum or Plasma VITAMIN D 25 HYDROXY Lab Routine Age-related osteoporosis without current pathological fracture Acquired hypothyroidism Encounter for long-term current use of medication Every 6 months for 60 Occurrences starting 08/10/2024 until 08/10/2025 [facility] Work Phone: Comment on above: Every 6 months for 60 Occurrences starti ng 08/10/2024 until 08/10/2025 End: 08-10-2025 CBC panel - Blood by Automated count COMPLETE BLOOD COUNT Lab Routine Age-related osteoporosis without current pathological fracture Acquired hypothyroidism Encounter for long-term current use of medication Every 6 months for 60 Occurrences starting 08/10/2024 until 08/10/2025 [facility] Comment on above: Every 6 months for 60 Occurrences starti ng 08/10/2024 until 08/10/2025 End: 03-27-2026 CBC panel - Blood by Automated count COMPLETE BLOOD COUNT Lab Routine Iron deficiency anemia, unspecified iron deficiency anemia type B12 deficiency Every 3 months for 60 Occurrences starting 03/27/2025 until 03/27/2026 [facility] Comment on above: Every 3 months for 60 Occurrences starti ng 03/27/2025 until 03/27/2026 End: 03-27-2026 Cobalamin (Vitamin B12) [Mass/volume] in Serum or Plasma VITAMIN B12 Lab Routine B12 deficiency Every 3 months for 60 Occurrences starting 03/27/2025 until 03/27/2026 [facility] Comment on above: Every 3 months for 60 Occurrences starti ng 03/27/2025 until 03/27/2026 COLOGUARD COLOGUARD Lab Ro utine Colon cancer screening Ordered: 01/10/2022 [facility] Work Phone: Comment on above: Ordered: 01/10/2022 Colonoscopy [facility] End: 08-10-2025 Comprehensive metabolic 2000 panel - Serum or Plasma COMPREHENSIVE METABOLIC PANEL Lab Routine Age-related osteoporosis without current pathological fracture Acquired hypothyroidism Encounter for long-term current use of medication Every 6 months for 60 Occurrences starting 08/10/2024 until 08/10/2025 [facility] Comment on above: Every 6 months for 60 Occurrences starti ng 08/10/2024 until 08/10/2025 End: 04-26-2026 DBT Breast - bilateral screening BRANT SCREENING [facility] Radiology Routine Breast cancer screening by mammogram 1 Occurrences starting 03/27/2025 until 04/26/2026 [facility] Work Phone: Comment on above: 1 Occurrences starting 03/27/2025 until 04/26/2026 End: 01-11-2024 DXA-AXIAL SKELETON DXA-AXIAL SKELETON Radiology Routine Encounter for screening for osteoporosis Asymptomatic postmenopausal status Osteoporosis with current pathological fracture with routine healing, unspecified osteoporosis type, subsequent encounter 1 Occurrences starting 12/12/2022 until 01/11/2024 [facility] Work Phone: Comment on above: 1 Occurrences starting 12/12/2022 until 01/11/2024 End: 04-29-2024 EMG(NEURO/NI) EMG(NEURO/NI) EMG Routine Bilateral carpal tunnel syndrome [facility] arthritis 1 Occurrences starting 04/29/2023 until 04/29/2024 [facility] Work Phone: Comment on above: 1 Occurrences starting 04/29/2023 until 04/29/2024 End: 03-27-2026 Ferritin [Mass/volume] in Serum or Plasma FERRITIN Lab Routine Iron deficiency anemia, unspecified iron deficiency anemia type Every 3 months for 60 Occurrences starting 03/27/2025 until 03/27/2026 [facility] Comment on above: Every 3 months for 60 Occurrences starti ng 03/27/2025 until 03/27/2026 End: 03-27-2026 Folate [Mass/volume] in Serum or Plasma FOLATE, SERUM Lab Routine B12 deficiency Every 3 months for 60 Occurrences starting 03/27/2025 until 03/27/2026 [facility] Comment on above: Every 3 months for 60 Occurrences starti ng 03/27/2025 until 03/27/2026 End: 03-27-2026 Iron and Iron binding capacity panel - Serum or Plasma IRON AND TIBC Lab Routine Iron deficiency anemia, unspecified iron deficiency anemia type Every 3 months for 60 Occurrences starting 03/27/2025 until 03/27/2026 [facility] Comment on above: Every 3 months for 60 Occurrences starti ng 03/27/2025 until 03/27/2026 End: 05-20-2026 LUNG VOLUMES LUNG VOLUMES PFT Routine Chronic cough 1 Occurrences starting 04/20/2025 until 05/20/2026 [facility] Comment on above: 1 Occurrences starting 04/20/2025 until 05/20/2026 LUNG VOLUMES LUNG VOLUMES PFT Routine Chronic cough 04/21/2025 1:25 PM EDT [facility] Work Phone: End: 03-18-2025 MG Breast Screening BRANT SCREENING Radiology Routine Encounter for screening mammogram for breast cancer 1 Occurrences starting 02/17/2024 until 03/18/2025 [facility] Work Phone: Comment on above: 1 Occurrences starting 02/17/2024 until 03/18/2025 End: 05-20-2026 NITRIC OXIDE, EXHALED NITRIC OXIDE, EXHALED PFT Routine Chronic cough 1 Occurrences starting 04/20/2025 until 05/20/2026 [facility] Comment on above: 1 Occurrences starting 04/20/2025 until 05/20/2026 NM Heart Views W str ess and W radionuclide IV [facility] Patient Education [facility] Work Phone: Patient referral [facility] Work Phone: Serum protein electrophoresis [facility] End: 05-20-2026 SPIROMETRY - BASELINE AND POST DILATOR SPIROMETRY - BASELINE AND POST DILATOR PFT Routine Chronic cough 1 Occurrences starting 04/20/2025 until 05/20/2026 [facility] Work Phone: Comment on above: 1 Occurrences starting 04/20/2025 until 05/20/2026 SPIROMETRY - BASELIN E AND POST DILATOR SPIROMETRY - BASELINE AND POST DILATOR PFT Routine Chronic cough 04/21/2025 1:25 PM EDT [facility] Work Phone: SPIROMETRY WITH DILA TOR IF OBSTRUCTED SPIROMETRY WITH DILATOR IF OBSTRUCTED PFT Routine SOBOE (shortness of breath on exertion) 05/30/2022 10:28 AM EDT [facility] Work Phone: End: 08-10-2025 Thyrotropin [Units/volume] in Serum or Plasma THYROID STIMULATING HORMONE Lab Routine Age-related osteoporosis without current pathological fracture Acquired hypothyroidism Encounter for long-term current use of medication Every 6 months for 60 Occurrences starting 08/10/2024 until 08/10/2025 [facility] Comment on above: Every 6 months for 60 Occurrences starti ng 08/10/2024 until 08/10/2025 End: 08-10-2025 Thyroxine (T4) free [Mass/volume] in Serum or Plasma T4 FREE/FREE THYROXINE Lab Routine Age-related osteoporosis without current pathological fracture Acquired hypothyroidism Encounter for long-term current use of medication Every 6 months for 60 Occurrences starting 08/10/2024 until 08/10/2025 [facility] Comment on above: Every 6 months for 60 Occurrences starti ng 08/10/2024 until 08/10/2025 End: 08-10-2025 Triiodothyronine (T3) Free [Mass/volume] in Serum or Plasma T3, FREE Lab Routine Age-related osteoporosis without current pathological fracture Acquired hypothyroidism Encounter for long-term current use of medication Every 6 months for 60 Occurrences starting 08/10/2024 until 08/10/2025 [facility] Comment on above: Every 6 months for 60 Occurrences starti ng 08/10/2024 until 08/10/2025 [facility] Immunizations Immunization Date Immunization Notes Care Provider Prosper alvarado 10-10-2024 COVID-19 original vaccine, booster dose, monovalent (MODERNA) Eunice Joe MD Work Phone: [facility] 10-10-2024 influenza, high dose seasonal, preservative-free Eunice Joe MD Work Phone: [facility] 10-10-2024 influenza virus vacc ine, unspecified formulation Eunice Joe MD Work Phone: [facility] 08-24-2023 influenza (HD-IIV4) vaccine, age 65+ yr, high dose, quadrivalent, PF (FLUZONE HIGH-DOSE) Eunice Joe MD Work Phone: [facility] 08-24-2023 respiratory syncytia l virus (RSV) vaccine, bivalent (ABRYSVO) Eunice Joe MD Work Phone: [facility] 08-24-2023 influenza virus vacc ine, unspecified formulation Abner Denny APRN.CNP Work Phone: [facility] 09-09-2022 influenza nasal, unspecified formulation Eunice Joe MD Work Phone: [facility] 09-09-2022 influenza virus vacc ine, unspecified formulation FADY SHI MD [facility] 09-09-2022 Seasonal, quadrivale nt, recombinant, injectable influenza vaccine, preservative free Eunice Joe MD Work Phone: [facility] 09-09-2022 Seasonal, trivalent, recombinant, injectable influenza vaccine, preservative free Eunice Joe MD Work Phone: [facility] Work Phone: 09-16-2021 SARS-CoV-2 mRNA (tozinameran) vaccine FADY SHI MD [facility] 07-23-2021 influenza nasal, unspecified formulation Eunice Joe MD Work Phone: [facility] 07-23-2021 influenza virus vacc ine, unspecified formulation FADY SHI MD [facility] 07-23-2021 influenza, high dose seasonal, preservative-free Eunice Joe MD Work Phone: [facility] 01-03-2021 COVID-19 vaccine, ag e 12+ yr (PFIZER-BIONTECH - PURPLE TOP) Eunice Joe MD Work Phone: [facility] Work Phone: Comment on above: Result Comment: 2022: [id number] 12-13-2020 COVID-19 vaccine, ag e 12+ yr (PFIZER-BIONTECH - PURPLE TOP) Eunice Joe MD Work Phone: [facility] Comment on above: Result Comment: 2022: [id number] 06-29-2020 influenza virus vacc ine, unspecified formulation FADY SHI MD [facility] 06-29-2020 influenza, high-dose , quadrivalent vaccine (FLUZONE HIGH DOSE QUADRIVALENT) Eunice Joe MD Work Phone: [facility] 09-22-2019 influenza virus vacc ine, unspecified formulation Eunice Joe MD Work Phone: [facility] 06-18-2018 tuberculin skin test ; purified protein derivative solution, intradermal Abner Denisha HAND FRAME SURGICAL ELASTIC KNITTER.MASTER AUTOMOTIVE GLASS TECHNICIAN Work Phone: [facility] 11-10-2017 influenza nasal, unspecified formulation Eunice Joe MD Work Phone: [facility] 11-10-2017 influenza virus vacc ine, unspecified formulation FADY SHI MD [facility] 11-10-2017 influenza, high dose seasonal, preservative-free Eunice Joe MD Work Phone: [facility] Work Phone: 01-28-2017 pneumococcal polysaccharide vaccine, 23 valent Eunice Joe MD Work Phone: [facility] 08-22-2015 pneumococcal polysaccharide vaccine, 23 valent Octavio Salas HAND FRAME SURGICAL ELASTIC KNITTER.MASTER AUTOMOTIVE GLASS TECHNICIAN Work Phone: [facility] 07-13-2015 pneumococcal conjuga te vaccine, 13 valent Eunice Joe MD Work Phone: [facility] 02-27-2012 tetanus toxoid, redu darling diphtheria toxoid, and acellular pertussis vaccine, adsorbed Eunice Joe MD Work Phone: [facility] Payers Date Payer Category Payer Self-pay [id number] 2023 Unknown [id number] 2021 Unknown [id number] 2015 Medicare MEDICARE MEDICAR E A AND B [id number] 2015-Present [phone] [place] [address] Medicare [id number] 2015 Medicare [id number]. [id number] 2015 Private Health Insurance [employer] [place] [id number]. [id number] 2015 Unknown [employer] 2N D [id number] 2015-Present [phone] [address] [address] [place] [id number] Indemnity [id number]. [id number] 2015 Unknown [id number] 1.13.159. 2.7.3.198841.315 2015 Medicare [id number] 2015 Unknown [id number] 1950 Unknown [id number] 2.16.840.1.757429.3.579. 2.594 1950 Unknown [id number] 2.16.840.1.651855.3.579. 2.594 1950 Unknown [id number] 2.16.840.1.727158.3.579. 2.627 1950 Unknown [id number] 2.16.840.1.985760.3.579. 2.627 1950 Unknown [id number] 2.16.840.1.399761.3.579. 2.627 1950 Unknown [id number] 2.16.840.1.062050.3.579. 2.627 1950 Unknown [id number] 2.16.840.1.501204.3.579. 2.627 1950 Unknown [id number] 2.16.840.1.971002.3.579. 2.627 1950 Unknown [id number] 2.16.840.1.357768.3.579. 2.627 1950 Unknown [id number] 2.16.840.1.624414.3.579. 2.627 1950 Unknown [id number] 2.16.840.1.270202.3.579. 2.627 1950 Unknown [id number] 2.16.840.1.351759.3.579. 2.627 1950 Unknown [id number] 2.16.840.1.860409.3.579. 2.627 1950 Unknown [id number] 2.16.840.1.609585.3.579. 2.627 Unknown [id number] 2.16.840.1.060160.3.579. 2.462 Unknown [id number] 2.16.840.1.542784.3.579. 2.462 Unknown [id number] 2.16.840.1.633695.3.579. 2.462 Unknown [id number] 2.16840.1.669029.3.579. 2.462 Unknown [id number] 2.840.1.910281.3.579. 2.462 Unknown [id number] 2.840.1.848967.3.579. 2.462 Unknown [id number] 2.840.1.176295.3.579. 2.462 Unknown [id number] 2.840.1.111625.3.579. 2.462 Unknown [id number] 2.840.1.644410.3.579. 2.462 Unknown [id number] 2.840.1.349104.3.579. 2.462 Unknown [id number] 2.840.1.815027.3.579. 2.462 Unknown [id number] 2.840.1.809363.3.579. 2.462 Unknown [id number] 2.840.1.824115.3.579. 2.462 Unknown [id number] 2.840.1.008328.3.579. 2.462 Unknown [id number] 2.840.1.006304.3.579. 2.462 Unknown [id number] 2.840.1.450856.3.579. 2.462 Unknown [id number] 2.840.1.160783.3.579. 2.462 Unknown [id number] 2.840.1.648271.3.579. 2.462 Social History Date Type Detail Facility Start: 05-30-2022 End: 02-02-2023 Tobacco smoking status NHIS Never smoked tobacco [facility] Work Phone: Start: 01-10-2022 End: 02-28-2025 Alcohol intake Current drinker of alcohol (finding) [facility] Start: 01-18-2021 End: 01-09-2022 History SDOH Alcohol Frequency 2 [facility] Start: 12-19-2019 End: 01-18-2021 History SDOH Alcohol Std Drinks 1 [facility] Start: 12-16-2013 History SDOH Alcohol Comment Occasional, once or twice per month. [facility] Start: 01-18-2021 History SDOH Social Connections Phone 4 [facility] Start: 01-18-2021 History SDOH Social Connections Living 3 [facility] Start: 01-18-2021 History SDOH Physica l Activity DPW 0 [facility] Start: 01-18-2021 History SDOH Financial 5 [facility] Start: 12-19-2019 Education 15 [facility] Start: 12-16-2013 End: 05-30-2022 Tobacco Comment Father smoked in childhood home. Spouse non-smoker. [facility] Start: 1950 Sex Assigned At Female C [facility] Start: 12-31-2021 End: 05-29-2022 Exposure to SARS-CoV-2 (event) Not sure [facility] Start: 03-17-2022 End: 01-06-2024 Tobacco smoking status NHIS Unknown if ever smoked [facility] Start: 02-05-2021 Rare [facility] Start: 02-05-2021 None [facility] Start: 02-05-2021 Non-smoker [facility] Start: 05-30-2022 Tobacco use and exposure Smokeless tobacco non-user [facility] Sex Assigned At [facility] Start: 01-17-2021 End: 04-29-2023 History of Social function [facility] Start: 01-17-2021 End: 04-29-2023 Social connection and isolation panel [facility] Attends [employer] Not on file [facility] Are you now , , , , never or living with a partner? [facility] How often to you hav e a drink containing alcohol? Monthly or less [facility] How many standard drinks containing alcohol do you have on a typical day? 1 or 2 [facility] How often do you hav e 6 or more drinks on 1 occasion? Never [facility] Do you feel stress - tense, restless, nervous, or anxious, or unable to sleep at night because your mind is troubled all the time - these days [OSQ] To some extent [facility] (I/We) worried wheth er (my/our) food would run out before (I/we) got money to buy more. Never true [facility] In the past 12 month s, was there a time when you were not able to pay the mortgage or rent on time? No [facility] Start: 06-05-2020 Gender identity Identifies as female gender (finding) [facility] Start: 06-05-2020 Sexual orientation Heterosexual (fin ding) [facility] Start: 11-20-2005 Sex Female (finding) [facility] Do you feel stress - tense, restless, nervous, or anxious, or unable to sleep at night because your mind is troubled all the time - these days [OSQ] Only a little [facility] Goals Date Patient Goal Desired Activity /State Functional Status Date Assessment Result Facility 03-20-2025 Total score [AUDIT-C] 1 03/20/20 25 3:10 PM EDT User, Cassi [facility] 03-20-2025 How often to you hav e a drink containing alcohol? Monthly or less 03/20/2025 3:10 PM EDT User, Cassi Monthly or less [facility] 03-20-2025 Functional status Patient does n ot drink 03/20/2025 3:10 PM EDT User, Cassi Patient does not drink [facility] 03-20-2025 How often do you hav e 6 or more drinks on 1 occasion? Never 03/20/2025 3:10 PM EDT User, Cassi Never [facility] 02-10-2023 Functional Status Awake [facility] 02-10-2023 Functional Status [facility] 02-10-2023 Functional Status [facility] 02-10-2023 Functional Status NPO Status Maintained A [facility] 02-04-2023 Functional Status Sensory Deficits None A [facility] 06-18-2018 Are you deaf, or do you have serious difficulty hearing No 06/18/2018 2:43 PM EDT Eunice Joe MD [facility] 06-18-2018 Are you blind, or do you have serious difficulty seeing, even when wearing glasses No 06/18/2018 2:43 PM EDT Eunice Joe MD No [facility] 06-18-2018 Do you have serious difficulty walking or climbing stairs No 06/18/2018 2:43 PM EDT Eunice Joe MD No [facility] 06-18-2018 Do you have difficul ty dressing or bathing No 06/18/2018 2:43 PM EDT Eunice Joe MD [facility] 06-18-2018 Because of a physica l, mental, or emotional condition, do you have difficulty doing errands alone such as visiting a physician's office or shopping No 06/18/2018 2:43 PM EDT Eunice Joe MD No [facility] Mental Status Date Assessment Result Facility 04-06-2023 Cognitive function Voice/Name [facility] Work Phone: 02-10-2023 Mental Status Orientation Oriented x 4 [facility] 02-10-2023 Mental Status [facility] 11-19-2022 Cognitive function Level Of Cons ciousness Awake;Alert;Appropriate;Fol lows Commands [facility] Work Phone: 03-25-2022 Cognitive function Appropriate [facility] Work Phone: 06-18-2018 Because of a physica l, mental, or emotional condition, do you have serious difficulty concentrating, remembering, or making decisions No 06/18/2018 2:43 PM EDT Eunice Joe MD No [facility] Clinical Notes 04-10-2006 to 04-21-2025 Elicia Lloyd, CERTIFIED ENERGY MANAGER - 04/21/2025 1:44 PM Elicia Amanda, CERTIFIED ENERGY MANAGER - 04/21/2025 1:44 PM EDTTelephone Encounter - Flakita Peguero RN - 04/20/2025 5:10 PM Cheryle Tavarez LPN - 03/27/2025 12:45 PM EDT Note Date & Type Note Facility 04-21-2025 Note HNO ID: [id number] Author: ELICIA LLOYD RRT Service: ? Author Type: Registered Resp Therapist Type: Procedures Filed: 04/21/2025 13:45 Note Text: RESPIRATORY THERAPY ORAL EXHALED NITRIC OXIDE SERVICE DATE: 04/21/2025 SERVICE TIME: 1:45 PM Oral Exhaled Nitric Oxide measurement: 11.0 (ppb) Normal: Adult <25 ppb, pediatric (<12 years) <20 ppb High Normal / Increased: Adult 25-50 ppb, pediatric (<12 years) 20-35 ppb Moderately raised exhaled Nitric Oxide may indicate underlying inflammation, but note that: Cold and influenza can raise exhaled Nitric Oxide and some patients have higher baseline exhaled Nitric Oxide levels than others. High: Adult >50 ppb, pediatric (<12 years) >35 ppb Indicative of ongoing eosinophilic inflammation. Symptomatic patient likely to respond to steroids. Possible causes (if already on steroids): Poor compliance, recent allergen exposure, steroid dose inadequate, and steroid resistance. Note that not all patients with high exhaled nitric oxide levels display symptoms. Oral Exhaled Nitric Oxide measurement (Previous Encounters) Test Date Oral Exhaled Nitric Oxide (ppb) 04/21/2025 11.0 NAME: Elicia Lloyd RRT PATIENT NAME: Nella Benítez DATE: April 21, 2025 TIME: 1:45 PM [facility] 04-21-2025 Procedure note Associated Ord er(s): NITRIC OXIDE, EXHALED RESPIRATORY THERAPY ORAL EXHALED NITRIC OXIDE SERVICE DATE: 04/21/2025 SERVICE TIME: 1:45 PM Oral Exhaled Nitric Oxide measurement: 11.0 (ppb) Normal: Adult <25 ppb, pediatric (<12 years) <20 ppb High Normal / Increased: Adult 25-50 ppb, pediatric (<12 years) 20-35 ppb Moderately raised exhaled Nitric Oxide may indicate underlying inflammation, but note that: Cold and influenza can raise exhaled Nitric Oxide and some patients have higher baseline exhaled Nitric Oxide levels than others. High: Adult >50 ppb, pediatric (<12 years) >35 ppb Indicative of ongoing eosinophilic inflammation. Symptomatic patient likely to respond to steroids. Possible causes (if already on steroids): Poor compliance, recent allergen exposure, steroid dose inadequate, and steroid resistance. Note that not all patients with high exhaled nitric oxide levels display symptoms. Oral Exhaled Nitric Oxide measurement (Previous Encounters) Test Date Oral Exhaled Nitric Oxide (ppb) 04/21/2025 11.0 NAME: Elicia Lloyd RRT PATIENT NAME: Nella Benítez DATE: April 21, 2025 TIME: 1:45 PM [facility] 04-21-2025 Procedure note Associated Ord er(s): NITRIC OXIDE, EXHALED RESPIRATORY THERAPY ORAL EXHALED NITRIC OXIDE SERVICE DATE: 04/21/2025 SERVICE TIME: 1:45 PM Oral Exhaled Nitric Oxide measurement: 11.0 (ppb) Normal: Adult <25 ppb, pediatric (<12 years) <20 ppb High Normal / Increased: Adult 25-50 ppb, pediatric (<12 years) 20-35 ppb Moderately raised exhaled Nitric Oxide may indicate underlying inflammation, but note that: Cold and influenza can raise exhaled Nitric Oxide and some patients have higher baseline exhaled Nitric Oxide levels than others. High: Adult >50 ppb, pediatric (<12 years) >35 ppb Indicative of ongoing eosinophilic inflammation. Symptomatic patient likely to respond to steroids. Possible causes (if already on steroids): Poor compliance, recent allergen exposure, steroid dose inadequate, and steroid resistance. Note that not all patients with high exhaled nitric oxide levels display symptoms. Oral Exhaled Nitric Oxide measurement (Previous Encounters) Test Date Oral Exhaled Nitric Oxide (ppb) 04/21/2025 11.0 NAME: Elicia Lloyd RRT PATIENT NAME: Nella Benítez DATE: April 21, 2025 TIME: 1:45 PM documented in this encounter [facility] 04-20-2025 Telephone encounter Note Pt called and is notified of providers message. Pt voices understanding. Denies soreness, states some white bumps and coating. Pt put through to scheduling to set up PFTs. Flakita Peguero RN [facility] 04-20-2025 Miscellaneous Notes Pt called and is notified of providers message. Pt voices understanding. Denies soreness, states some white bumps and coating. Pt put through to scheduling to set up PFTs. Flakita Peguero RN Sounds like infection is resolved given clear secretions. PFTs ordered. Any soreness in mouth? Wondering whether has thrush now after antibiotics for infection, Please see message below. Pt also calls to report that provider suggested pulmonary function test but there isn't an order for this. Call pt with provider message. Aide Goode LPN Patient returned call and went over notes from Dr Joe, patient said she is coughing, post nasal drainage, blowing clear secretions, white bumps on back of her tongue, not as achy as she had been, no fever. She is taking tessalon perles, coricidin, tylenol as needed. She said it was 04/30/2024 when she COVID and pneumonia. Called and left a voicemail for the Patient to call back and ask for a nurse to receive the providers message. Flakita Peguero RN Check on patient on Thursday to verify what symptoms she is having. Some symptoms may still be from clearing of the inflammation after an infection rather than signs of persistent or recurrent infection. May need to see ENT for sinus symptoms or pulmonology for respiratory issues. Consider PFTs Patient calls and states that her last antibiotic was 04/03. Patient reports that her symptoms came back on 04/07. Patient had take 2 rounds of Omnicef. Patient asking if anything else can be called in? Please review and advise, Heather Feliz RN documented in this encounter [facility] 04-20-2025 Telephone encounter Note Sounds like infection is resolved given clear secretions. PFTs ordered. Any soreness in mouth? Wondering whether has thrush now after antibiotics for infection, [facility] 04-18-2025 Telephone encounter Note Please see message below. Pt also calls to report that provider suggested pulmonary function test but there isn't an order for this. Call pt with provider message. Aide Goode LPN [facility] 04-17-2025 Telephone encounter Note Patient returned call and went over notes from Dr Joe, patient said she is coughing, post nasal drainage, blowing clear secretions, white bumps on back of her tongue, not as achy as she had been, no fever. She is taking tessalon perles, coricidin, tylenol as needed. She said it was 04/30/2024 when she COVID and pneumonia. [facility] 04-17-2025 Telephone encounter Note Called and left a voicemail for the Patient to call back and ask for a nurse to receive the providers message. Flakita Peguero RN [facility] 04-15-2025 Telephone encounter Note Check on patient on Thursday to verify what symptoms she is having. Some symptoms may still be from clearing of the inflammation after an infection rather than signs of persistent or recurrent infection. May need to see ENT for sinus symptoms or pulmonology for respiratory issues. Consider PFTs [facility] 04-12-2025 Telephone encounter Note Patient calls and states that her last antibiotic was 04/03. Patient reports that her symptoms came back on 04/07. Patient had take 2 rounds of Omnicef. Patient asking if anything else can be called in? Please review and advise, Heather Feliz RN [facility] 03-27-2025 Note HNO ID: [id number] Author: CHERYLE MANRIQUE LPN Service: ? Author Type: LICENSED NURSE Type: Progress Notes Filed: 03/27/2025 13:04 Note Text: Pt received her b-12 injection in office as ordered. Tolerated well. [facility] 03-27-2025 History of Presen t illness Narrative Pt received her b-12 injection in office as ordered. Tolerated well. This note was created using [employer]. Subjective Nella Benítez is a 74 year old female. SUBJECTIVE: Nella Benítez is a 74-year-old female with a history of recurrent respiratory infections, presenting for follow-up on persistent upper respiratory symptoms and leg pain. Nella reports ongoing upper respiratory symptoms, including cough and nasal drainage, following a recent illness that began approximately 1-2 months ago. She was evaluated at urgent care and prescribed Omnicef, which she completed last . She notes that her symptoms initially improved during the first 3 days of antibiotic treatment but worsened after completion, with a scratchy throat developing by night. She denies requesting the antibiotic and reports that it was prescribed after a chest x-ray, which was negative for pneumonia. She has been using Tessalon Perles for cough suppression but is hesitant to take it during the day due to potential drowsiness. She denies using albuterol currently. Nella also reports experiencing sharp, painful sensations in her left medial thigh and calf, which she suspects may be related to a previously diagnosed L5 pinched nerve. She notes that the pain worsens with pressure and is associated with muscle spasms. She has tried various topical treatments, including Voltaren, Nervive, Biofreeze, and lidoderm patches, with only short-term relief. She has also used tizanidine for muscle spasms. Additionally, Nella has a history of low B12 and iron levels, with recent labs showing B12 at 208 pg/mL and iron at 31 mcg/dL. She has been taking oral B12 supplements (1,000 mcg daily) and reports symptoms consistent with B12 deficiency, including leg heaviness, weakness, and fatigue. She denies any dietary changes or gastrointestinal symptoms that could explain the low iron levels. She also reports a recent epidural steroid injection for lumbar canal stenosis, which provided relief for about a week and a half. 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 For Anxiety and SOB related to throat/laryngospasm as directed iron polysaccharide complex (NU-IRON) 150 mg iron capsule Take 1 capsule by mouth once daily. cyanocobalamin (VITAMIN B-12) 1,000 mcg tab Take 1 tablet by mouth once daily. denosumab (PROLIA) 60 mg/mL Inject 60 mg subcutaneously one time only. every 6 months. busPIRone (BUSPAR) 15 mg tablet Take 1.5 tablets by mouth two times a day. tiZANidine (ZANAFLEX) 4 mg tablet Take 1 tablet by mouth two times a day as needed. levothyroxine (SYNTHROID) 50 mcg tablet Take 1 tablet by mouth once daily. pantoprazole DR (PROTONIX) 40 mg tablet Take 1 tablet by mouth two times a day. As directed buPROPion SR (WELLBUTRIN SR) 150 mg 12 hr tablet Take 1 tablet by mouth once daily. sucralfate (CARAFATE) 1 gram tablet Take 1 tablet by mouth four times daily. As directed for flare ups. May dissolve in 1 to 2 teaspoons of water then swallow. Cholecalciferol, Vitamin D3, 125 mcg (5,000 unit) cap Hold for the month of August then resume once weekly in September. citalopram (CELEXA) 40 mg tablet Take 1 tablet by mouth once daily. meloxicam (MOBIC) 15 mg tablet Take 1 tablet by mouth once daily. Take with food. acetaminophen (TYLENOL 8 HOUR) 650 mg CR tablet Take 2 tablets by mouth every 8 hours as needed for pain. (try this one) fexofenadine (ALVINA) 180 mg tablet Take 180 mg by mouth once daily. cefdinir (OMNICEF) 300 mg capsule Take 1 capsule by mouth two times a day for 7 days. albuterol HFA (VENTOLIN HFA) 90 mcg/actuation inhaler Inhale 2 puffs as instructed every 4 hours as needed for wheezing/shortness of breath (and coughin spells). [START ON 04/16/2025] ALPRAZolam (XANAX) 0.5 mg tablet Take 1 tablet by mouth two times a day as needed for up to 60 days. For Anxiety and SOB related to throat/laryngospasm as directed Patient should start on April 16, 2025. No current facility-administered medications for this visit. Review of Systems Objective BP 138/88 (BP Site: Left Arm, BP Position: Sitting, BP Cuff Size: Regular Adult) Pulse 76 Resp 12 SpO2 97% Physical Exam Constitutional: Appearance: Normal appearance. HENT: Head: Normocephalic. Eyes: Conjunctiva/sclera: Conjunctivae normal. Cardiovascular: Rate and Rhythm: Normal rate and regular rhythm. Heart sounds: Normal heart sounds. Pulmonary: Effort: Pulmonary effort is normal. Breath sounds: Normal breath sounds. Skin: General: Skin is warm and dry. Neurological: General: No focal deficit present. Mental Status: She is alert and oriented to person, place, and time. Psychiatric: Mood and Affect: Mood normal. Behavior: Behavior normal. Thought Content: Thought content normal. Judgment: Judgment normal. Last 5 Encounter Wt Readings: Date: Wt: 03/16/2025 67 kg (147 lb 11.3 oz) 02/28/2025 67.1 kg (147 lb 14.9 oz) 12/22/2024 66.8 kg (147 lb 4.3 oz) 12/14/2024 66.8 kg (147 lb 4.3 oz) 12/03/2024 67 kg (147 lb 11.3 oz) No waist measurement recorded Estimated body mass index is 29.33 kg/m as calculated from the following: Height as of 11/11/23: 151.1 cm (4' 11.5"). Weight as of 03/16/25: 67 kg (147 lb 11.3 oz). Last 5 Encounter BP Readings: Date: BP: 03/27/2025 138/88 03/16/2025 140/91 02/28/2025 110/78 12/22/2024 118/93 12/14/2024 136/84 Assessment and Plan # Sinobronchitis (J32.9) - Persistent cough, nasal drainage, and post-nasal drip; completed a course of Omnicef last with initial improvement but symptoms worsened after completion. - Ordered an extended course of Omnicef. - Prescribed albuterol inhaler, 2 puffs every 4 hours for wheezing, shortness of breath, and coughing spells. - Advised use of Tessalon Perles at bedtime to aid in rest. - Discussed potential use of Delsym for additional cough suppression. # Iron deficiency anemia, unspecified iron deficiency anemia type (D50.9) - Recent labs show low iron levels. - Continue oral iron supplementation. Consider IV iron infusion as indicated. - Ordered standing labs every 3 months to monitor iron levels, including iron, folate, ferritin, and CBC. # B12 deficiency (E53.8) - Recent labs show low B12 levels. - Administered B12 injection today. - Continue oral B12 supplementation, 1000 mcg daily. - Consider B12 IM injection if not improving with 1 injection followed by continued oral supplementation - Ordered standing labs every 3 months to monitor B12 levels. # Grief reaction (F43.20) - No changes in management at this time. # Anxiety (F41.9) - Refilled Xanax prescription, 60 pills with a 60-day supply. Stabled on med as prescribed. # Neuropathy (G62.9) - Experiencing pins and needles sensation in both hands. - Recommended alpha lipoic acid 300-600 mg per day. # Breast cancer screening by mammogram (Z12.31) - Ordered 3D mammogram scheduled for tomorrow. # Spinal stenosis, lumbar region, without neurogenic claudication (M48.061) - Recent epidural steroid injection provided temporary relief. - Discussing potential PRP treatment with Dr. Chow's team. # Pain in left leg (M79.605) - Sharp pain in medial thigh, possibly related to L5 pinched nerve. - Pain worsens with pressure; likely due to muscle spasms. - Recommended continuation of topical treatments such as Voltaren, Nervive, and Biofreeze for short-term relief. - Discussed potential benefits of B12 replacement in alleviating nerve-related pain. Eunice Joe MD Recording using [employer] software for draft documentation of the visit was discussed with the patient/authorized community relations representative; all questions welcomed and answered. Patient/authorized community relations representative agreed to proceed documented in this encounter [facility] 03-27-2025 Instructions Eunice Joe MD - 03/27/2025 12:27 PM EDT - An extended course of Omnicef (cefdinir) has been prescribed; continue the antibiotic until the new prescription is finished. - Take Tessalon Perles (benzonatate) at bedtime to help suppress your cough and allow you to rest. - If coughing persists, you may use Delsym (dextromethorphan) 12-hour syrup as needed for additional cough relief. - Begin using your albuterol inhaler: 2 puffs every 4 hours as needed for wheezing, shortness of breath, or coughing spells. Take a dose before bedtime and again first thing in the morning. - You received a vitamin B12 injection today; start oral vitamin B12 1000 mcg once daily to replenish levels. - Complete the standing lab tests (CBC, ferritin, iron studies, vitamin B12, folate, magnesium, and kidney function) at your convenience to monitor your blood counts and nutrient levels. - Your 3D mammogram is scheduled for tomorrow; please arrive at your appointment time. - Xanax prescription has been corrected to a 60-day supply (60 tablets); your next refill will be available around April [address] [facility] [place]. - Your next routine follow-up is in July; clinic staff will confirm the exact date. Alpha lipoic acid--300 to 600 mg per day may help for neuropathy symptoms. documented in this encounter [facility] 03-27-2025 Note HNO ID: [id number] Author: EUNICE JOE MD Service: ? Author Type: Physician Type: Progress Notes Filed: 03/27/2025 13:04 Note Text: This note was created using [employer]. Subjective Nella Benítez is a 74 year old female. SUBJECTIVE: Nella Benítez is a 74-year-old female with a history of recurrent respiratory infections, presenting for follow-up on persistent upper respiratory symptoms and leg pain. Nella reports ongoing upper respiratory symptoms, including cough and nasal drainage, following a recent illness that began approximately 1-2 months ago. She was evaluated at urgent care and prescribed Omnicef, which she completed last . She notes that her symptoms initially improved during the first 3 days of antibiotic treatment but worsened after completion, with a scratchy throat developing by night. She denies requesting the antibiotic and reports that it was prescribed after a chest x-ray, which was negative for pneumonia. She has been using Tessalon Perles for cough suppression but is hesitant to take it during the day due to potential drowsiness. She denies using albuterol currently. Nella also reports experiencing sharp, painful sensations in her left medial thigh and calf, which she suspects may be related to a previously diagnosed L5 pinched nerve. She notes that the pain worsens with pressure and is associated with muscle spasms. She has tried various topical treatments, including Voltaren, Nervive, Biofreeze, and lidoderm patches, with only short-term relief. She has also used tizanidine for muscle spasms. Additionally, Nella has a history of low B12 and iron levels, with recent labs showing B12 at 208 pg/mL and iron at 31 mcg/dL. She has been taking oral B12 supplements (1,000 mcg daily) and reports symptoms consistent with B12 deficiency, including leg heaviness, weakness, and fatigue. She denies any dietary changes or gastrointestinal symptoms that could explain the low iron levels. She also reports a recent epidural steroid injection for lumbar canal stenosis, which provided relief for about a week and a half. 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 For Anxiety and SOB related to throat/laryngospasm as directed iron polysaccharide complex (NU-IRON) 150 mg iron capsule Take 1 capsule by mouth once daily. cyanocobalamin (VITAMIN B-12) 1,000 mcg tab Take 1 tablet by mouth once daily. denosumab (PROLIA) 60 mg/mL Inject 60 mg subcutaneously one time only. every 6 months. busPIRone (BUSPAR) 15 mg tablet Take 1.5 tablets by mouth two times a day. tiZANidine (ZANAFLEX) 4 mg tablet Take 1 tablet by mouth two times a day as needed. levothyroxine (SYNTHROID) 50 mcg tablet Take 1 tablet by mouth once daily. pantoprazole DR (PROTONIX) 40 mg tablet Take 1 tablet by mouth two times a day. As directed buPROPion SR (WELLBUTRIN SR) 150 mg 12 hr tablet Take 1 tablet by mouth once daily. sucralfate (CARAFATE) 1 gram tablet Take 1 tablet by mouth four times daily. As directed for flare ups. May dissolve in 1 to 2 teaspoons of water then swallow. Cholecalciferol, Vitamin D3, 125 mcg (5,000 unit) cap Hold for the month of August then resume once weekly in September. citalopram (CELEXA) 40 mg tablet Take 1 tablet by mouth once daily. meloxicam (MOBIC) 15 mg tablet Take 1 tablet by mouth once daily. Take with food. acetaminophen (TYLENOL 8 HOUR) 650 mg CR tablet Take 2 tablets by mouth every 8 hours as needed for pain. (try this one) fexofenadine (ALVINA) 180 mg tablet Take 180 mg by mouth once daily. cefdinir (OMNICEF) 300 mg capsule Take 1 capsule by mouth two times a day for 7 days. albuterol HFA (VENTOLIN HFA) 90 mcg/actuation inhaler Inhale 2 puffs as instructed every 4 hours as needed for wheezing/shortness of breath (and coughin spells). [START ON 04/16/2025] ALPRAZolam (XANAX) 0.5 mg tablet Take 1 tablet by mouth two times a day as needed for up to 60 days. For Anxiety and SOB related to throat/laryngospasm as directed Patient should start on April 16, 2025. No current facility-administered medications for t (more content not included)... [facility] 03-17-2025 Telephone encounter Note Spoke to patient and she does take 0.5 BID 4 out 7 days week. Pended rx saying 30 day supply not 60. Barbara Pavon MA [facility] 03-17-2025 Miscellaneous Notes Spoke to patient and she does take 0.5 BID 4 out 7 days week. Pended rx saying 30 day supply not 60. Barbara Pavon MA documented in this encounter [facility] 03-16-2025 Note Addended by: OCTAVIO SALAS on: 03/16/2025 03:48 PM Modules accepted: Orders [facility] 03-16-2025 Miscellaneous Notes Addended by: OCTAVIO SALAS on: 03/16/2025 03:48 PM Modules accepted: Orders documented in this encounter [facility] 03-16-2025 Note HNO ID: [id number] Author: OCTAVIO SALAS APRN.ISABELLA Service: ? Author Type: Nurse Practitioner Type: Progress Notes Filed: 03/16/2025 13:09 Note Text: [facility] Subjective Nella Benítez is a 74 year old female. Patient presents with: Cough: Chest congestion, SOB, wheeze, tightness in chest, dry cough, sore throat, headache, low grade fever x 4 days HPI Cough and Dyspnea: - Onset of symptoms began after hosting 17 people at her house on Thursday. - Negative at-home COVID test. - Denies wheezing. - History of bronchitis; no history of asthma or other upper respiratory issues. - Previous use of albuterol inhaler during a COVID-19 and pneumonia episode in April of last year. - Currently taking Mucinex, concerned about chest congestion. Pharyngitis: - Reports sore throat with onset on Thursday. - Describes throat as "really red" on the right side. Allergies: - Latex allergy. - Poor tolerance to Augmentin and doxycycline, with the latter causing diarrhea. Additional Information: - Recently started on iron supplements. - is currently well and waiting in the car. Review of Systems Constitutional: Positive for fever. Negative for fatigue. HENT: Positive for congestion, postnasal drip, sinus pressure, sinus pain and sore throat. Respiratory: Positive for cough. Negative for choking, shortness of breath and wheezing. Cardiovascular: Negative for chest pain. Objective BP 140/91 Pulse 97 Temp 37.1 ?C (98.8 ?F) Resp 24 Wt 67 kg (147 lb 11.3 oz) SpO2 97% BMI 29.33 kg/m? 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 Toth) VAGINAL HYSTERECTOMY UTERUS 250 GM/< vaginal with bilateral oophorectomy ALLERGIES Latex, Actonel [Risedronate Sodium], and Fosamax [Alendronate Sodium] MEDICATIONS iron polysaccharide complex (NU-IRON) 150 mg iron capsule Take 1 capsule by mouth once daily. cyanocobalamin (VITAMIN B-12) 1,000 mcg tab Take 1 tablet by mouth once daily. denosumab (PROLIA) 60 mg/mL Inject 60 mg subcutaneously one time only. every 6 months. busPIRone (BUSPAR) 15 mg tablet Take 1.5 tablets by mouth two times a day. ALPRAZolam (XANAX) 0.5 mg tablet Take 1 tablet by mouth two times a day as needed for up to 60 days. For Anxiety and SOB related to throat/laryngospasm as directed tiZANidine (ZANAFLEX) 4 mg tablet Take 1 tablet by mouth two times a day as needed. levothyroxine (SYNTHROID) 50 mcg tablet Take 1 tablet by mouth once daily. pantoprazole DR (PROTONIX) 40 mg tablet Take 1 tablet by mouth two times a day. As directed buPROPion SR (WELLBUTRIN SR) 150 mg 12 hr tablet Take 1 tablet by mouth once daily. sucralfate (CARAFATE) 1 gram tablet Take 1 tablet by mouth four times daily. As directed for flare ups. May dissolve in 1 to 2 teaspoons of water then swallow. Cholecalciferol, Vitamin D3, 125 mcg (5,000 unit) cap Hold for the month of August then resume once weekly in September. citalopram (CELEXA) 40 mg tablet Take 1 tablet by mouth once daily. meloxicam (MOBIC) 15 mg tablet Take 1 tablet by mouth once daily. Take with food. acetaminophen (TYLENOL 8 HOUR) 650 mg CR tablet Take 2 tablets by mouth every 8 hours as needed for pain. (try this one) fexofenadine (ALVINA) 180 mg tablet Take 180 mg by mouth once daily. cefdinir (OMNICEF) 300 mg capsule Take 1 capsule by mouth two times a day for 7 days. FAMILY HISTORY Problem Relation Age of Onset other (hodgkins [Other]) Father Osteoporosis Mother Asthma Sister Asthma Sister Asthma Son Youngest Ischemic Heart Disease Mother 02/28/13, age 84. Social History Tobacco Use Smoking status: Never Smokeless tobacco: Never Tobacco comments: Father smoked in childhood home. Spouse non-smoker. Vaping Use Vaping status: Sandeep (more content not included)... [facility] 03-16-2025 History of Presen t illness Narrative [facility] Subjective Nella Benítez is a 74 year old female. Patient presents with: Cough: Chest congestion, SOB, wheeze, tightness in chest, dry cough, sore throat, headache, low grade fever x 4 days HPI Cough and Dyspnea: - Onset of symptoms began after hosting 17 people at her house on Thursday. - Negative at-home COVID test. - Denies wheezing. - History of bronchitis; no history of asthma or other upper respiratory issues. - Previous use of albuterol inhaler during a COVID-19 and pneumonia episode in April of last year. - Currently taking Mucinex, concerned about chest congestion. Pharyngitis: - Reports sore throat with onset on Thursday. - Describes throat as "really red" on the right side. Allergies: - Latex allergy. - Poor tolerance to Augmentin and doxycycline, with the latter causing diarrhea. Additional Information: - Recently started on iron supplements. - is currently well and waiting in the car. Review of Systems Constitutional: Positive for fever. Negative for fatigue. HENT: Positive for congestion, postnasal drip, sinus pressure, sinus pain and sore throat. Respiratory: Positive for cough. Negative for choking, shortness of breath and wheezing. Cardiovascular: Negative for chest pain. Objective BP 140/91 Pulse 97 Temp 37.1 C (98.8 F) Resp 24 Wt 67 kg (147 lb 11.3 oz) SpO2 97% BMI 29.33 kg/m 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 Toth) VAGINAL HYSTERECTOMY UTERUS 250 GM/< vaginal with bilateral oophorectomy ALLERGIES Latex, Actonel [Risedronate Sodium], and Fosamax [Alendronate Sodium] MEDICATIONS iron polysaccharide complex (NU-IRON) 150 mg iron capsule Take 1 capsule by mouth once daily. cyanocobalamin (VITAMIN B-12) 1,000 mcg tab Take 1 tablet by mouth once daily. denosumab (PROLIA) 60 mg/mL Inject 60 mg subcutaneously one time only. every 6 months. busPIRone (BUSPAR) 15 mg tablet Take 1.5 tablets by mouth two times a day. ALPRAZolam (XANAX) 0.5 mg tablet Take 1 tablet by mouth two times a day as needed for up to 60 days. For Anxiety and SOB related to throat/laryngospasm as directed tiZANidine (ZANAFLEX) 4 mg tablet Take 1 tablet by mouth two times a day as needed. levothyroxine (SYNTHROID) 50 mcg tablet Take 1 tablet by mouth once daily. pantoprazole DR (PROTONIX) 40 mg tablet Take 1 tablet by mouth two times a day. As directed buPROPion SR (WELLBUTRIN SR) 150 mg 12 hr tablet Take 1 tablet by mouth once daily. sucralfate (CARAFATE) 1 gram tablet Take 1 tablet by mouth four times daily. As directed for flare ups. May dissolve in 1 to 2 teaspoons of water then swallow. Cholecalciferol, Vitamin D3, 125 mcg (5,000 unit) cap Hold for the month of August then resume once weekly in September. citalopram (CELEXA) 40 mg tablet Take 1 tablet by mouth once daily. meloxicam (MOBIC) 15 mg tablet Take 1 tablet by mouth once daily. Take with food. acetaminophen (TYLENOL 8 HOUR) 650 mg CR tablet Take 2 tablets by mouth every 8 hours as needed for pain. (try this one) fexofenadine (ALVINA) 180 mg tablet Take 180 mg by mouth once daily. cefdinir (OMNICEF) 300 mg capsule Take 1 capsule by mouth two times a day for 7 days. FAMILY HISTORY Problem Relation Age of Onset other (hodgkins [Other]) Father Osteoporosis Mother Asthma Sister Asthma Sister Asthma Son Youngest Ischemic Heart Disease Mother 02/28/13, age 84. Social History Tobacco Use Smoking status: Never Smokeless tobacco: Never Tobacco comments: Father smoked in childhood home. Spouse non-smoker. Vaping Use Vaping status: Never Used Substance Use Topics Alcohol use: Yes Comment: Occasional, once or twice per month. Drug use: No Physical Exam Vitals reviewed. HENT: Right Ear: Ear canal and external ear normal. A middle ear effusion is present. Left Ear: Ear canal and external ear normal. A middle ear effusion is present. Nose: Congestion and rhinorrhea present. Right Sinus: Maxillary sinus tenderness present. Left Sinus: Maxillary sinus tenderness present. Mouth/Throat: Pharynx: Uvula midline. Posterior oropharyngeal erythema present. No oropharyngeal exudate or uvula swelling. Tonsils: No tonsillar exudate or tonsillar abscesses. Eyes: General: Right eye: No discharge. Left eye: No discharge. Pupils: Pupils are equal, round, and reactive to light. Cardiovascular: Rate and Rhythm: Normal rate and regular rhythm. Heart sounds: Normal heart sounds. Pulmonary: Effort: Pulmonary effort is normal. Breath sounds: Decreased breath sounds present. Abdominal: General: Bowel sounds are normal. There is no distension. Tenderness: There is no abdominal tenderness. There is no right CVA tenderness or left CVA tenderness. Lymphadenopathy: Cervical: Cervical adenopathy present. Neurological: Mental Status: She is alert. {1. Acute cough (R05.1) 2. Acute non-recurrent maxillary sinusitis (J01.00) - Chest X-ray performed; results negative for pneumonia. - Prescribed Omnicef (cefdinir) to address sinus congestion; discussed potential for less GI side effects compared to previous antibiotics. - Provided Tessalon for symptomatic relief of cough. - Advised to monitor symptoms and follow up if no improvement or worsening occurs. and Recording using [employer] software for draft documentation of the visit was discussed with the patient/authorized community relations representative; all questions welcomed and answered. Patient/authorized community relations representative agreed to proceed History and Record Review External record(s) reviewed: prior outpatient record. Findings from review of outpatient records: PRevious medical history Differential Diagnoses - Maxillary sinusitis is more likely for the following reason(s): suggested by H&P - Viral etiology is more likely for the following reason(s): suggested by H&P - Pneumonia is less likely for the following reason(s): Chest xray negative for pneumonia, H&P not suggestive and laboratory studies not suggestive Disposition The patient was discharged. OTC Medications were advised: Tylenol as needed Patient is a 74-year-old female had a gathering over at her house with multiple people and developed upper respiratory symptoms. Patient was worked up for SOB in February where is was put on iron. Chest xray negative for pneumonia. Viral etiology, patient pretty persistent about antibiotic coverage. Patient does not tolerate doxycyline and Augmentin due to diarrheal component discussed all antibiotics have this potential. Delayed prescribing cefdnir and tessalon as needed. ER chest pain or shortness of breath. documented in this encounter [facility] 03-16-2025 History of Presen t illness Narrative Radiology Service Progress Note PATIENT NAME: Nella Benítez DATE OF SERVICE: March 16, 2025 TIME: 11:33 AM PATIENT IDENTITY VERIFICATION COMPLETED USING TWO (2) IDENTIFIERS: Name and Date of confirmed by patient verbally. FALL SCREENING: Has the patient had 2 falls in the last year or 1 fall with injury or currently using an Ambulatory Assistive Device (Walker, Cane, Wheelchair, Crutches, etc.)? No PATIENT GENDER DATA: Assigned female at . status: : No status: NO. PATIENT RELEVANT IMPLANT DATA REVIEWED: Yes PATIENT PRESENTS WITH AN IMPLANTABLE OR ATTACHED COLLECTIONS TECHNICIAN: No RADIOLOGY DEPARTMENT: General X-ray: Exam(s) Completed: Chest X-Ray PERIPHERAL IV DATA: Not applicable SIGNED BY: RT Flex(Yoana) March 16, 2025 11:33 AM documented in this encounter [facility] 03-16-2025 Note HNO ID: [id number] Author: GEENA CRUZ RT(Yoana) Service: ? Author Type: Conditioner Tumbler Operator Type: Progress Notes Filed: 03/16/2025 11:41 Note Text: Radiology Service Progress Note PATIENT NAME: Nella Benítez DATE OF SERVICE: March 16, 2025 TIME: 11:33 AM PATIENT IDENTITY VERIFICATION COMPLETED USING TWO (2) IDENTIFIERS: Name and Date of confirmed by patient verbally. FALL SCREENING: Has the patient had 2 falls in the last year or 1 fall with injury or currently using an Ambulatory Assistive Device (Walker, Cane, Wheelchair, Crutches, etc.)? No PATIENT GENDER DATA: Assigned female at . status: : No status: NO. PATIENT RELEVANT IMPLANT DATA REVIEWED: Yes PATIENT PRESENTS WITH AN IMPLANTABLE OR ATTACHED COLLECTIONS TECHNICIAN: No RADIOLOGY DEPARTMENT: General X-ray: Exam(s) Completed: Chest X-Ray PERIPHERAL IV DATA: Not applicable SIGNED BY: RT Flex(R) March 16, 2025 11:33 AM [facility] 02-28-2025 Note HNO ID: [id number] Author: ABNER DENNY APRN.MASTER AUTOMOTIVE GLASS TECHNICIAN Service: ? Author Type: Nurse Practitioner Type: Progress Notes Filed: 02/28/2025 16:28 Note Text: SUBJECTIVE Nlela Benítez is a 74 year old female here today for acute concern. Chief Complaint Patient presents with: Dizziness: and shortness of breath off and on for several months Had 1 episode last month were she "clasped to the floor" had seen with cardiology last month but symptoms worsening was after seeing cardiology HPI Nella is a 74-year-old female with a history of SVT, presenting with dyspnea, dizziness, and a recent episode of collapse. Nella reports experiencing dyspnea and dizziness on exertion, leading to feelings of weakness. During these episodes, her usually assists her until the symptoms pass. She describes a recent incident where she collapsed after getting out of bed to close a door. She experienced a momentary blackout, describing it as "darkness," and was unable to return to bed, collapsing to the floor instead. She was able to call for help and subsequently lay down for a while before crawling back to bed. She notes that her blood pressure was significantly lower than usual during this episode, ranging from 80s/60s to 90s/60s, with a pulse in the 70s. She drank Gatorade, water, and 7-Up, which she believes helped improve her condition, though she continued to feel dizzy while in bed. She mentions that it is not unusual for her to feel lightheaded when transitioning from a sitting to a standing position. Nella also reports intermittent tremors, particularly noticeable when pointing, which have been present for a while but were not previously mentioned. She expresses concern about the combination of symptoms, including dyspnea, lightheadedness, and tremors, and is unable to determine their cause. She notes that her child development teacher initially saw her for SVT, which was ablated, and released her unless she had further issues. She did not mention dyspnea during her initial cardiology visit. Recent blood work on the showed stable kidney and liver function, with a slight improvement in hemoglobin from 10.5 to 10.6. She denies any known bleeding. She questions whether her low hemoglobin could be contributing to her dyspnea and dizziness. She denies wheezing, chest pain, or palpitations but describes a rapid heart rate that she can hear pounding in her head, even when lying down to sleep. She notes that her chest feels tight when she is anxious or nervous. Nella also reports low energy and heavy legs, attributing these symptoms to her low hemoglobin. She mentions a history of COVID-19 and pneumonia, which she believes significantly affected her health. She also has a history of urethelial cancer, with her last cystoscopy in December showing no signs of cancer. She does not require another cystoscopy for a year. She had a colonoscopy last year and a Cologuard test before that. She has a history of back issues, including a pinched L5 and lumbar compression fractures, for which she received an epidural on January 10. She notes that the epidural helped, but she is starting to feel discomfort again, especially at night. She takes Xanax and tizanidine at night to help with sleep but reports difficulty getting comfortable and frequent trips to the bathroom. She expresses a desire to avoid opioid use, which she used for several years in the past. Her medications were reviewed today and her list is now up to date. Medications Current Outpatient Medications Medication Sig denosumab (PROLIA) 60 mg/mL Inject 60 mg subcutaneously one time only. every 6 months. busPIRone (BUSPAR) 15 mg tablet Take 1.5 tablets by mouth two times a day. ALPRAZolam (XANAX) 0.5 mg tablet Take 1 tablet by mouth two times a day as needed for up to 60 days. For Anxiety and SOB related to throat/laryngospasm as directed tiZANidine (ZANAFLEX) 4 mg tablet Take 1 tablet by mouth two times a day as needed. levothyroxine (SYNTHROID) 50 mcg tablet Take 1 tablet by mouth once daily. pantoprazole DR (PROTONIX) 40 mg tablet Take 1 tablet by mouth two times a day. As directed buPROPion SR (WELLBUTRIN SR) 150 mg 12 hr tablet Take 1 tablet by mouth once daily. sucralfate (CARAFATE) 1 gram tablet Take 1 tablet by mouth four times daily. As directed for flare ups. May dissolve in 1 to 2 teaspoons of water then swallow. Cholecalciferol, Vitamin D3, 125 mcg (5,000 unit) cap Hold for the month of August then resume once weekly in September. citalopram (CELEXA) 40 mg tablet Take 1 tablet by mouth once daily. meloxicam (MOBIC) 15 mg tablet Take 1 tablet by mouth once daily. Take with food. acetaminophen (TYLENOL 8 HOUR) 650 mg CR tablet Take 2 tablets by mouth every 8 hours as needed for pain. (try this one) fexofenadine (ALVINA) 180 mg tablet Take 180 mg by mouth once daily. No current facility-administered medications for this (more content not included)... [facility] 02-27-2025 Telephone encounter Note Pt reports SOB on exertion for several months. No SOB yet today. Had covid & pneumonia in April and the SOB on exertion seems worse after covid/pneumonia. Also having fatigue, sweating, dizziness when standing- one episode of dizziness thought she may have blacked out, but knew it was going to happen and lowered herself to the floor. helped her to bed. BP was 80's/50's this day, 4 hours later was back up to 130/s/70's. Has been having episodes of sweating to the point her hair has been soaked. Saw [facility] in December and was told her heart looked good. No new medications, takes low dose lisinopril. Protocol recommends see provider in 2 weeks. Scheduled appt for tomorrow per patient preference. Reason for Disposition [1] MILD longstanding difficulty breathing (e.g., minimal/no SOB at rest, SOB with walking, pulse <100) AND [2] SAME as normal Breathing difficulty Answer Assessment - Initial Assessment Questions 1. RESPIRATORY STATUS: Shortness of breath on exertion for several months daily. No SOB today yet. 2. ONSET: Several months ago, but seems to have gotten worse since she had covid and pneumonia in April. 3. PATTERN Happens on exertion. 4. SEVERITY: Moderate. 5. RECURRENT SYMPTOM:Has had SOB off/on for some time but it is happening more often. Had Covid and Pneumonia in April on a trip in [place]. Was told she has scar tissue on her lungs- and noticed SOB on exertion is worse since had covid and pneumonia. 6. CARDIAC HISTORY: Takes lisinopril for BP. Had an ablation for SVT 3-4 years ago. Sees [facility]- last appt in December and provider told her her heart looks really good. Gets palpitations off/on. No CP. 7. LUNG HISTORY: No lung history. Covid and pneumonia in April. Had pneumonia 3 times. 8. CAUSE: Thinks it's related to being out of shape. Doesn't exercise d/t bad back. Has Severe Hiatal Hernia. No new medications. 9. OTHER SYMPTOMS: In general not feeling well. SOB on exertion. Fatigue. Pulse goes up and down- highest 140 bpm, lowest pulse 70's. Dizziness. On 02/07 became dizzy when stood up and knew she would fall- was able to lower herself to the floor- knows she had momentary darkness- came and helped her to the bed. BP was 80/50's- was low for about 4 hours, then came back up to 130's / 70's. Has been having lightheadedness when she stands up. Happening more often. Drinks at least 4 bottles of water daily. Has been having deep sweating to where her hair becomes soaked. This has been happening for several months. 10. O2 SATURATION MONITOR: No 11. : No 12. TRAVEL: No travel. No exposures. Protocols used: Respiratory Multiple Symptoms - Guideline [id number], Breathing [id number]-[id number] [facility] 02-27-2025 Miscellaneous Notes Pt reports SOB on exertion for several months. No SOB yet today. Had covid & pneumonia in April and the SOB on exertion seems worse after covid/pneumonia. Also having fatigue, sweating, dizziness when standing- one episode of dizziness thought she may have blacked out, but knew it was going to happen and lowered herself to the floor. helped her to bed. BP was 80's/50's this day, 4 hours later was back up to 130/s/70's. Has been having episodes of sweating to the point her hair has been soaked. Saw [facility] in December and was told her heart looked good. No new medications, takes low dose lisinopril. Protocol recommends see provider in 2 weeks. Scheduled appt for tomorrow per patient preference. Reason for Disposition [1] MILD longstanding difficulty breathing (e.g., minimal/no SOB at rest, SOB with walking, pulse <100) AND [2] SAME as normal Breathing difficulty Answer Assessment - Initial Assessment Questions 1. RESPIRATORY STATUS: Shortness of breath on exertion for several months daily. No SOB today yet. 2. ONSET: Several months ago, but seems to have gotten worse since she had covid and pneumonia in April. 3. PATTERN Happens on exertion. 4. SEVERITY: Moderate. 5. RECURRENT SYMPTOM:Has had SOB off/on for some time but it is happening more often. Had Covid and Pneumonia in April on a trip in [place]. Was told she has scar tissue on her lungs- and noticed SOB on exertion is worse since had covid and pneumonia. 6. CARDIAC HISTORY: Takes lisinopril for BP. Had an ablation for SVT 3-4 years ago. Sees [facility]- last appt in December and provider told her her heart looks really good. Gets palpitations off/on. No CP. 7. LUNG HISTORY: No lung history. Covid and pneumonia in April. Had pneumonia 3 times. 8. CAUSE: Thinks it's related to being out of shape. Doesn't exercise d/t bad back. Has Severe Hiatal Hernia. No new medications. 9. OTHER SYMPTOMS: In general not feeling well. SOB on exertion. Fatigue. Pulse goes up and down- highest 140 bpm, lowest pulse 70's. Dizziness. On 02/07 became dizzy when stood up and knew she would fall- was able to lower herself to the floor- knows she had momentary darkness- came and helped her to the bed. BP was 80/50's- was low for about 4 hours, then came back up to 130's / 70's. Has been having lightheadedness when she stands up. Happening more often. Drinks at least 4 bottles of water daily. Has been having deep sweating to where her hair becomes soaked. This has been happening for several months. 10. O2 SATURATION MONITOR: No 11. : No 12. TRAVEL: No travel. No exposures. Protocols used: Respiratory Multiple Symptoms - Guideline [id number], Breathing [id number]-EB documented in this encounter [facility] 02-17-2025 Note HNO ID: [id number] Author: KATHERINE PHAM, DO Service: ? Author Type: Physician Type: Progress Notes Filed: 02/22/2025 12:35 Note Text: Follow Up Visit Chief Complaint Nella is a 74-year-old female with a history of arthritis, presenting for bilateral wrist pain. Patient presents with: Left Wrist - Pain, Established Patient, Follow Up Right Wrist - Pain, Established Patient, Follow Up History of Present Illness PAIN EVALUATION 02/10/2025 1131 02/17/2025 1145 Pain Location: Wrist-Right -- bilateral wrist, right worse than left Description: Aching;Burning;Sharp Aching;Burning;Sharp Frequency: Continuous Continuous Intervention/Comfort measure: Cold;Splinting Cold;Support surface;Medication voltaren, biofreeze Comments: -- wearing hand/wrist brace HPI: Nella Benítez is a 74 year old female for a follow up visit bilateral right worse than left wrist pain. Pain history is noted as above. Is there any overall improvement in your condition? No Any new injury, since being seen last: No Bilateral Wrist Pain: - Chronic bilateral wrist pain, worse on the right side. - Pain localized to the wrist joints. - Previous corticosteroid injection in the wrist approximately two years ago. - Recent epidural injection for back pain one month ago. - History of lumbar spine fractures. - Currently on Prolia for osteoporosis management. REVIEW OF SYMPTOMS: Patient did not have, and does not currently have, any weight loss, malaise, fever, chills, headache, chest pain, chest pressure, palpitations, cough, shortness of breath, orthopnea, paroxsymal nocturnal dyspnea, nausea, vomiting, diarrhea, constipation, melena, hematochezia, urinary difficulties, prolonged bleeding, easily bruising, heat or cold intolerance, new onset joint pain or swelling, new onset extremity weakness or numbness, new onset auditory or visual disturbances, lightheadedness, dizziness, partial loss of consciousness or full loss of consciousness. Musculoskeletal: (+) right wrist pain, (+) left wrist pain Current Outpatient Medications Medication Sig busPIRone (BUSPAR) 15 mg tablet Take 1.5 tablets by mouth two times a day. ALPRAZolam (XANAX) 0.5 mg tablet Take 1 tablet by mouth two times a day as needed for up to 60 days. For Anxiety and SOB related to throat/laryngospasm as directed tiZANidine (ZANAFLEX) 4 mg tablet Take 1 tablet by mouth two times a day as needed. levothyroxine (SYNTHROID) 50 mcg tablet Take 1 tablet by mouth once daily. lisinopril 2.5 mg tablet Take 1 tablet by mouth once daily. (Cardiology filling) pantoprazole DR (PROTONIX) 40 mg tablet Take 1 tablet by mouth two times a day. As directed buPROPion SR (WELLBUTRIN SR) 150 mg 12 hr tablet Take 1 tablet by mouth once daily. sucralfate (CARAFATE) 1 gram tablet Take 1 tablet by mouth four times daily. As directed for flare ups. May dissolve in 1 to 2 teaspoons of water then swallow. Cholecalciferol, Vitamin D3, 125 mcg (5,000 unit) cap Hold for the month of August then resume once weekly in September. citalopram (CELEXA) 40 mg tablet Take 1 tablet by mouth once daily. meloxicam (MOBIC) 15 mg tablet Take 1 tablet by mouth once daily. Take with food. acetaminophen (TYLENOL 8 HOUR) 650 mg CR tablet Take 2 tablets by mouth every 8 hours as needed for pain. (try this one) calcium carbonate 600 mg-cholecalciferol 200 units (CALCIUM 600 + D,3,) 600 mg(1,500mg) -200 unit tab Take 1 tablet by mouth twice daily. Calcium viactive chewable fexofenadine (ALVINA) 180 mg tablet Take 180 mg by mouth once daily. No current facility-administered medications for this visit. Physical Exam Vitals: There were no vitals taken for this visit. Psych: Pleasant, good affect and mood General Appearance: Well appearing, alert, in no acute distress, well-hydrated, well nourished.. Skin: Skin color, texture, turgor normal, no suspicious rashes or lesions. Peripheral Pulses: Normal. Neurologic: Gait normal. Reflexes normal and symmetric. Sensation grossly intact.. Lymph Nodes: No cervical lymphadenopathy, No supraclavicular lymphadenopathy, No axillary lymphadenopathy., and No inguinal lymphadenopathy.. Respiratory: No recent pulmonary infection, hemoptysis, chronic cough, or shortness of breath at rest Rheumatologic: Joint deformities: wrist pain Right Hand Exam Tenderness Right hand tenderness location: pos cmc grind. Range of Motion The patient has normal right wrist ROM. Wrist Extension: normal Flexion: normal Pronation: normal Supination: normal Muscle Strength The patient has normal right wrist strength. Senior Sales Consultant: 4/5 Tests Lisa's test: negative Other Erythema: absent Sensation: decreased Pulse: present Comments: B/l uln/rad/ax nerves intact Most of her pain today is wrist oa not cts Left Hand Exam Range of Motion The patient has normal left wrist ROM. Wrist Extension: normal Flexion: normal (more content not included)... 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 Follow Up Visit Chief Complaint Nella is a 74-year-old female with a history of arthritis, presenting for bilateral wrist pain. Patient presents with: Left Wrist - Pain, Established Patient, Follow Up Right Wrist - Pain, Established Patient, Follow Up History of Present Illness PAIN EVALUATION 02/10/2025 1131 02/17/2025 1145 Pain Location: Wrist-Right -- bilateral wrist, right worse than left Description: Aching;Burning;Sharp Aching;Burning;Sharp Frequency: Continuous Continuous Intervention/Comfort measure: Cold;Splinting Cold;Support surface;Medication voltaren, biofreeze Comments: -- wearing hand/wrist brace HPI: Nella Benítez is a 74 year old female for a follow up visit bilateral right worse than left wrist pain. Pain history is noted as above. Is there any overall improvement in your condition? No Any new injury, since being seen last: No Bilateral Wrist Pain: - Chronic bilateral wrist pain, worse on the right side. - Pain localized to the wrist joints. - Previous corticosteroid injection in the wrist approximately two years ago. - Recent epidural injection for back pain one month ago. - History of lumbar spine fractures. - Currently on Prolia for osteoporosis management. REVIEW OF SYMPTOMS: Patient did not have, and does not currently have, any weight loss, malaise, fever, chills, headache, chest pain, chest pressure, palpitations, cough, shortness of breath, orthopnea, paroxsymal nocturnal dyspnea, nausea, vomiting, diarrhea, constipation, melena, hematochezia, urinary difficulties, prolonged bleeding, easily bruising, heat or cold intolerance, new onset joint pain or swelling, new onset extremity weakness or numbness, new onset auditory or visual disturbances, lightheadedness, dizziness, partial loss of consciousness or full loss of consciousness. Musculoskeletal: (+) right wrist pain, (+) left wrist pain Current Outpatient Medications Medication Sig busPIRone (BUSPAR) 15 mg tablet Take 1.5 tablets by mouth two times a day. ALPRAZolam (XANAX) 0.5 mg tablet Take 1 tablet by mouth two times a day as needed for up to 60 days. For Anxiety and SOB related to throat/laryngospasm as directed tiZANidine (ZANAFLEX) 4 mg tablet Take 1 tablet by mouth two times a day as needed. levothyroxine (SYNTHROID) 50 mcg tablet Take 1 tablet by mouth once daily. lisinopril 2.5 mg tablet Take 1 tablet by mouth once daily. (Cardiology filling) pantoprazole DR (PROTONIX) 40 mg tablet Take 1 tablet by mouth two times a day. As directed buPROPion SR (WELLBUTRIN SR) 150 mg 12 hr tablet Take 1 tablet by mouth once daily. sucralfate (CARAFATE) 1 gram tablet Take 1 tablet by mouth four times daily. As directed for flare ups. May dissolve in 1 to 2 teaspoons of water then swallow. Cholecalciferol, Vitamin D3, 125 mcg (5,000 unit) cap Hold for the month of August then resume once weekly in September. citalopram (CELEXA) 40 mg tablet Take 1 tablet by mouth once daily. meloxicam (MOBIC) 15 mg tablet Take 1 tablet by mouth once daily. Take with food. acetaminophen (TYLENOL 8 HOUR) 650 mg CR tablet Take 2 tablets by mouth every 8 hours as needed for pain. (try this one) calcium carbonate 600 mg-cholecalciferol 200 units (CALCIUM 600 + D,3,) 600 mg(1,500mg) -200 unit tab Take 1 tablet by mouth twice daily. Calcium viactive chewable fexofenadine (ALVINA) 180 mg tablet Take 180 mg by mouth once daily. No current facility-administered medications for this visit. Physical Exam Vitals: There were no vitals taken for this visit. Psych: Pleasant, good affect and mood General Appearance: Well appearing, alert, in no acute distress, well-hydrated, well nourished.. Skin: Skin color, texture, turgor normal, no suspicious rashes or lesions. Peripheral Pulses: Normal. Neurologic: Gait normal. Reflexes normal and symmetric. Sensation grossly intact.. Lymph Nodes: No cervical lymphadenopathy, No supraclavicular lymphadenopathy, No axillary lymphadenopathy., and No inguinal lymphadenopathy.. Respiratory: No recent pulmonary infection, hemoptysis, chronic cough, or shortness of breath at rest Rheumatologic: Joint deformities: wrist pain Right Hand Exam Tenderness Right hand tenderness location: pos cmc grind. Range of Motion The patient has normal right wrist ROM. Wrist Extension: normal Flexion: normal Pronation: normal Supination: normal Muscle Strength The patient has normal right wrist strength. Senior Sales Consultant: 4/5 Tests Lisa's test: negative Other Erythema: absent Sensation: decreased Pulse: present Comments: B/l uln/rad/ax nerves intact Most of her pain today is wrist oa not cts Left Hand Exam Range of Motion The patient has normal left wrist ROM. Wrist Extension: normal Flexion: normal Pronation: normal Supination: normal Muscle Strength The patient has normal left wrist strength. Senior Sales Consultant: 4/5 Tests Lisa's test: negative Other Erythema: absent Sensation: decreased Pulse: present Comments: Dec med nerve distribution b/l Atrophy thumb distribution Assessment and Plan Radiographs: I have independently reviewed films and my findings are the same. and I have reviewed the images with the patient and family. Last XR Wrist - Impression Only No resulted procedures found. Imaging: - X-ray: Findings consistent with arthritis in the wrist Impression: 1. Primary osteoarthritis of both hands (M19.041) - Bilateral wrist pain, right worse than left; previous corticosteroid injection approximately two years ago. - Radiographic evidence of significant osteoarthritic changes in both hands. - Administered corticosteroid injections to both wrists to alleviate inflammation and pain. - Monitor for improvement in symptoms; consider repeat injections or alternative therapies if pain persists. 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 - Continue Prolia as prescribed. Medium Joint Arthro/Inj: bilateral radiocarpals 02/17/2025 12:32 PM The procedure site was prepped in the usual sterile fashion. Medications (Right): 10 mg triamcinolone acetonide 10 mg/mL Anesthetics (Right): 2 mL BUPivacaine (PF) 0.5 % (5 mg/mL) Outcome: tolerated well, no immediate complications Post-injection instructions were reviewed with the patient and the patient voiced understanding of these instructions. Informed Consent Consent Obtained: Verbal [place] Protocol A moment to CARE was completed. SIGN IN Personnel directly involved with the procedure wore the appropriate PPE. Special Equipment: N/A Patient/Surrogate Stated/Verified: Patient name, Date of , Relevant allergies and Intended procedure TIME OUT Relevant labs, photos, and/or imaging studies have been reviewed. Intended patient and procedure match source documents. Consent documented and matches the intended procedure. Correct side/site marked and visible. Medications required for procedure verified. Fire risk assessed and interventions discussed. No implant(s) inserted. SIGN OUT No specimen collected. All instruments, equipment, possible retained foreign bodies accounted for. Today, in detail, through a thorough evaluation, we discussed possible etiologies of pain and our plans for further diagnostic and therapeutic interventions. We discussed strategies for decreasing pain and improving strength, stability and motion. Patient's questions were answered in detailed. Patient verbalizes understanding and agrees with the treatment plan as discussed. Recording using [employer] software for draft documentation of the visit was discussed with the patient/authorized community relations representative; all questions welcomed and answered. Patient/authorized community relations representative agreed to proceed Discussed with patient possible options for treatment. Patient elected proceed with injection. Patient told not to submerge the injected area for 24 hours in a hot tub, or bath, injection may take 2 weeks for improvement to be noticed, follow-up in 2 -6 weeks if symptoms do not resolve. All questions answered patient agreement of plan. Apply ice Limit activities as discussed Rest Do not submerge limb in water for 24 hours Cont current meds Watch sugars/decrease carbs Call if warm/hot/red Discussed with patient that if the injection does not work after 2 to 4 weeks to come back for reevaluation. Discussed the next 3 days may feel worse before it feels better. Discussed if having continued pain to return. May get injection every 3 months Katherine Pelayo.O. M.P.H. documented in this encounter [facility] 02-09-2025 Telephone encounter Note Elicia from Dr Georges Michele Dentist office calling asking for copy of patient last office note with medication list to be faxed to [phone]. Printed and faxed as requested. [facility] 02-09-2025 Miscellaneous Notes Elicia from Dr Georges Mic[facility] Dentist office calling asking for copy of patient last office note with medication list to be faxed to [phone]. Printed and faxed as requested. documented in this encounter [facility] 02-08-2025 Telephone encounter Note Pt did not refill last Rx within 6 months so it . Please send in refill for Pt. The patient has been identified by name and date of : Yes Caregiver verified no other encounters exist for this prescription request: Yes Caregiver confirmed with patient/requestor that no other refills are due, in the near future, with this provider at this time: Yes The last office visit in the department: 12/14/2024 Does the patient have a future office visit with this provider/department: Yes 03/27/2025 Requested Prescriptions Pending Prescriptions Disp Refills busPIRone (BUSPAR) 15 mg tablet 270 tablet 3 Sig: Take 1.5 tablets by mouth two times a day. Flakita Peguero RN February 08, 2025 11:54 AM [facility] 02-08-2025 Miscellaneous Notes Pt did not refill last Rx within 6 months so it . Please send in refill for Pt. The patient has been identified by name and date of : Yes Caregiver verified no other encounters exist for this prescription request: Yes Caregiver confirmed with patient/requestor that no other refills are due, in the near future, with this provider at this time: Yes The last office visit in the department: 12/14/2024 Does the patient have a future office visit with this provider/department: Yes 03/27/2025 Requested Prescriptions Pending Prescriptions Disp Refills busPIRone (BUSPAR) 15 mg tablet 270 tablet 3 Sig: Take 1.5 tablets by mouth two times a day. Flakita Peguero RN February 08, 2025 11:54 AM documented in this encounter [facility] 02-08-2025 Telephone encounter Note Per Jayden with [facility] Pt did not fill medication within the first 6 months, so the Rx . [facility] 02-08-2025 Miscellaneous Notes Per Jayden with [facility] Pt did not fill medication within the first 6 months, so the Rx . documented in this encounter [facility] 02-06-2025 Telephone encounter Note ok [facility] 02-06-2025 Miscellaneous Notes ok documented in this encounter [facility] 01-12-2025 [facility] Well[facility] SR 150, has refill remaining. Luz Rodriguez LPN [facility] 01-12-2025 Misc[facility] Wellbutrin SR 150, has refill remaining. Luz Rodriguez LPN documented in this encounter [facility] 01-02-2025 Telephone encounter Note Please see patient stopped baclofen due to not being effective and resumed zanaflex Barbara Pavon MA [facility] 01-02-2025 Miscellaneous Notes Please see patient stopped baclofen due to not being effective and resumed zanaflex Barbara Pavon MA documented in this encounter [facility] 12-22-2024 History of Presen t illness Narrative Radiology Service Progress Note PATIENT NAME: Nella Benítez DATE OF SERVICE: December 22, 2024 TIME: 12:06 PM PATIENT IDENTITY VERIFICATION COMPLETED USING TWO (2) IDENTIFIERS: Name and Date of confirmed by patient verbally. FALL SCREENING: Has the patient had 2 falls in the last year or 1 fall with injury or currently using an Ambulatory Assistive Device (Walker, Cane, Wheelchair, Crutches, etc.)? No PATIENT GENDER DATA: Assigned female at . status: : No status: NO. PATIENT RELEVANT IMPLANT DATA REVIEWED: Not Applicable PATIENT PRESENTS WITH AN IMPLANTABLE OR ATTACHED COLLECTIONS TECHNICIAN: No RADIOLOGY DEPARTMENT: General X-ray: Exam(s) Completed: Chest X-Ray PERIPHERAL IV DATA: Not applicable SIGNED BY: RT Maria D(Yoana) December 22, 2024 12:06 PM documented in this encounter [facility] 12-22-2024 Note HNO ID: [id number] Author: CYNDI BARCENAS RT(R) Service: Radiology Author Type: Technologist Type: Progress Notes Filed: 12/22/2024 12:12 Note Text: Radiology Service Progress Note PATIENT NAME: Nella Benítez DATE OF SERVICE: December 22, 2024 TIME: 12:06 PM PATIENT IDENTITY VERIFICATION COMPLETED USING TWO (2) IDENTIFIERS: Name and Date of confirmed by patient verbally. FALL SCREENING: Has the patient had 2 falls in the last year or 1 fall with injury or currently using an Ambulatory Assistive Device (Walker, Cane, Wheelchair, Crutches, etc.)? No PATIENT GENDER DATA: Assigned female at . status: : No status: NO. PATIENT RELEVANT IMPLANT DATA REVIEWED: Not Applicable PATIENT PRESENTS WITH AN IMPLANTABLE OR ATTACHED COLLECTIONS TECHNICIAN: No RADIOLOGY DEPARTMENT: General X-ray: Exam(s) Completed: Chest X-Ray PERIPHERAL IV DATA: Not applicable SIGNED BY: JOSEPHINE Killian) December 22, 2024 12:06 PM [facility] 12-22-2024 Instructions Kika Thompson APRN.MASTER AUTOMOTIVE GLASS TECHNICIAN - 12/22/2024 12:02 PM EDT Images from the original note were not included. Adult Sinusitis Patient Education What is Sinusitis? Sinusitis [[id number]-[id number]-[id number]] is inflammation of the sinuses or swelling of the lining of the sinus cavity or nose. During an infection the sinuses become blocked with fluid causing swelling of the lining of the sinuses. Symptoms: (viral and bacterial infections) Stuffy nose Runny nose Postnasal drip Fever Toothache Headache Tiredness Cough Sore throat Face and head pressure and or pain Common causes: 98% of sinus infections are viral caused by viruses. Risk Factors of Sinusitis Include: Allergies, air pollution, indoor humidity and outdoor temperature changes, andstructural changes in the nose may contribute to sinus pain, pressure and congestion. When to get help? Temperature greater than 100.4 F Symptoms lasting more than 10 days or worsening symptoms greater than 7-10 days. If you do not improve or worsen after a course of antibiotics, you should be re-examined. Diagnosis and Treatment: Your healthcare provider will ask a number of questions about your symptoms and how long they have occurred. If symptoms of sinusitis persist greater than 10 days, it is possible you have a bacterial sinus infection and an antibiotic is prescribed. If it is viral, antibiotics will not help. You may be instructed to take [id number] medications for symptoms. including fever reducers acetaminophen or ibuprofen, nasal saline spray, cough and cold preparations and decongestants as prescribed by the physician, nurse practitioner or physician lead assistant manager. Self-Care and Prevention: Rest Fluids for hydration Good hand washing Humidifier Avoid smoking and exposure to second hand smoke Avoid sick contacts documented in this encounter [facility] 12-22-2024 Note HNO ID: [id number] Author: KIKA THOMPSON APRN.MA[employer] TECHNICIAN Service: ? Author Type: Nurse Practitioner Type: Progress Notes Filed: 12/22/2024 12:24 Note Text: This note was created using [employer]. Subjective Nella Benítez is a 74 year old female. 74 year old female with PMH fibromyalgia, HTN, hyperlipidemia, stage 3 CKD, thyroid, osteoporosis presents for illness. Acute onset 8 days +sinus pressure +nasal congestion +sore throat +headache +cough, non productive +SOB +body aches +chills Denies N/V/D Denies CP Denies hemoptysis Denies tobacco usage Has used Coricidin Tylenol The history is provided by the patient. No electrotyper apprentice was used. Sinus Problem This is a new problem. The current episode started 1 to 4 weeks ago. The problem occurs constantly. The problem has been gradually worsening. Associated symptoms include chills, congestion, coughing, fatigue, a fever, headaches and a sore throat. Pertinent negatives include no abdominal pain, anorexia, arthralgias, change in bowel habit, chest pain, diaphoresis, joint swelling, myalgias, nausea, neck pain, numbness, rash, swollen glands, urinary symptoms, vertigo, visual change, vomiting or weakness. Nothing aggravates the symptoms. She has tried nothing for the symptoms. The treatment provided no relief. 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 Toth) VAGINAL HYSTERECTOMY UTERUS 250 GM/< vaginal with bilateral oophorectomy ALLERGIES Latex, Actonel [Risedronate Sodium], and Fosamax [Alendronate Sodium] MEDICATIONS doxycycline (VIBRA-TABS) 100 mg tablet Take 1 tablet by mouth two times a day for 7 days. levothyroxine (SYNTHROID) 50 mcg tablet Take 1 tablet by mouth once daily. lisinopril 2.5 mg tablet Take 1 tablet by mouth once daily. (Cardiology filling) pantoprazole DR (PROTONIX) 40 mg tablet Take 1 tablet by mouth two times a day. As directed baclofen 10 mg tablet Take 1 tablet by mouth two times a day as needed. ALPRAZolam (XANAX) 0.5 mg tablet Take 1 tablet by mouth two times a day as needed for up to 60 days. For Anxiety and SOB related to throat/laryngospasm as directed buPROPion SR (WELLBUTRIN SR) 150 mg 12 hr tablet Take 1 tablet by mouth once daily. busPIRone (BUSPAR) 15 mg tablet Take 1.5 tablets by mouth two times a day. sucralfate (CARAFATE) 1 gram tablet Take 1 tablet by mouth four times daily. As directed for flare ups. May dissolve in 1 to 2 teaspoons of water then swallow. Cholecalciferol, Vitamin D3, 125 mcg (5,000 unit) cap Hold for the month of August then resume once weekly in September. citalopram (CELEXA) 40 mg tablet Take 1 tablet by mouth once daily. meloxicam (MOBIC) 15 mg tablet Take 1 tablet by mouth once daily. Take with food. acetaminophen (TYLENOL 8 HOUR) 650 mg CR tablet Take 2 tablets by mouth every 8 hours as needed for pain. (try this one) calcium carbonate 600 mg-cholecalciferol 200 units (CALCIUM 600 + D,3,) 600 mg(1,500mg) -200 unit tab Take 1 tablet by mouth twice daily. Calcium viactive chewable fexofenadine (ALVINA) 180 mg tablet Take 180 mg by mouth once daily. FAMILY HISTORY Problem Relation Age of Onset other (hodgkins [Other]) Father Osteoporosis Mother Asthma Sister Asthma Sister Asthma Son Youngest Ischemic Heart Disease Mother 02/28/13, age 84. Social History Tobacco Use Smoking status: Never Smokeless tobacco: Never Tobacco comments: Father smoked in childhood home. Spouse non-smoker. Vaping Use Vaping status: Never Used Substance Use Topics Alcohol use: Yes Comment: Occasional, once or twice per month. Drug use: No Review of Systems Constitutional: Positive for chills, fatigue and fever. Negative for diaphoresis. HENT: Positive for congestion, rhin (more content not included)... [facility] 12-22-2024 History of Presen t illness Narrative This note was created using [employer]. Subjective Nella Benítez is a 74 year old female. 74 year old female with PMH fibromyalgia, HTN, hyperlipidemia, stage 3 CKD, thyroid, osteoporosis presents for illness. Acute onset 8 days +sinus pressure +nasal congestion +sore throat +headache +cough, non productive +SOB +body aches +chills Denies N/V/D Denies CP Denies hemoptysis Denies tobacco usage Has used Coricidin Tylenol The history is provided by the patient. No electrotyper apprentice was used. Sinus Problem This is a new problem. The current episode started 1 to 4 weeks ago. The problem occurs constantly. The problem has been gradually worsening. Associated symptoms include chills, congestion, coughing, fatigue, a fever, headaches and a sore throat. Pertinent negatives include no abdominal pain, anorexia, arthralgias, change in bowel habit, chest pain, diaphoresis, joint swelling, myalgias, nausea, neck pain, numbness, rash, swollen glands, urinary symptoms, vertigo, visual change, vomiting or weakness. Nothing aggravates the symptoms. She has tried nothing for the symptoms. The treatment provided no relief. 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 Toth) VAGINAL HYSTERECTOMY UTERUS 250 GM/< vaginal with bilateral oophorectomy ALLERGIES Latex, Actonel [Risedronate Sodium], and Fosamax [Alendronate Sodium] MEDICATIONS doxycycline (VIBRA-TABS) 100 mg tablet Take 1 tablet by mouth two times a day for 7 days. levothyroxine (SYNTHROID) 50 mcg tablet Take 1 tablet by mouth once daily. lisinopril 2.5 mg tablet Take 1 tablet by mouth once daily. (Cardiology filling) pantoprazole DR (PROTONIX) 40 mg tablet Take 1 tablet by mouth two times a day. As directed baclofen 10 mg tablet Take 1 tablet by mouth two times a day as needed. ALPRAZolam (XANAX) 0.5 mg tablet Take 1 tablet by mouth two times a day as needed for up to 60 days. For Anxiety and SOB related to throat/laryngospasm as directed buPROPion SR (WELLBUTRIN SR) 150 mg 12 hr tablet Take 1 tablet by mouth once daily. busPIRone (BUSPAR) 15 mg tablet Take 1.5 tablets by mouth two times a day. sucralfate (CARAFATE) 1 gram tablet Take 1 tablet by mouth four times daily. As directed for flare ups. May dissolve in 1 to 2 teaspoons of water then swallow. Cholecalciferol, Vitamin D3, 125 mcg (5,000 unit) cap Hold for the month of August then resume once weekly in September. citalopram (CELEXA) 40 mg tablet Take 1 tablet by mouth once daily. meloxicam (MOBIC) 15 mg tablet Take 1 tablet by mouth once daily. Take with food. acetaminophen (TYLENOL 8 HOUR) 650 mg CR tablet Take 2 tablets by mouth every 8 hours as needed for pain. (try this one) calcium carbonate 600 mg-cholecalciferol 200 units (CALCIUM 600 + D,3,) 600 mg(1,500mg) -200 unit tab Take 1 tablet by mouth twice daily. Calcium viactive chewable fexofenadine (ALVINA) 180 mg tablet Take 180 mg by mouth once daily. FAMILY HISTORY Problem Relation Age of Onset other (hodgkins [Other]) Father Osteoporosis Mother Asthma Sister Asthma Sister Asthma Son Youngest Ischemic Heart Disease Mother 02/28/13, age 84. Social History Tobacco Use Smoking status: Never Smokeless tobacco: Never Tobacco comments: Father smoked in childhood home. Spouse non-smoker. Vaping Use Vaping status: Never Used Substance Use Topics Alcohol use: Yes Comment: Occasional, once or twice per month. Drug use: No Review of Systems Constitutional: Positive for chills, fatigue and fever. Negative for diaphoresis. HENT: Positive for congestion, rhinorrhea, sinus pressure, sinus pain and sore throat. Eyes: Negative for photophobia, pain, discharge, redness, itching and visual disturbance. Respiratory: Positive for cough. Negative for apnea, choking and chest tightness. Cardiovascular: Negative for chest pain. Gastrointestinal: Negative for abdominal pain, anorexia, change in bowel habit, nausea and vomiting. Musculoskeletal: Negative for arthralgias, joint swelling, myalgias and neck pain. Skin: Negative for color change, pallor and rash. Allergic/Immunologic: Negative for environmental allergies, food allergies and immunocompromised state. Neurological: Positive for headaches. Negative for dizziness, vertigo, facial asymmetry, weakness and numbness. Hematological: Negative for adenopathy. Does not bruise/bleed easily. Psychiatric/Behavioral: Negative for agitation and behavioral problems. Objective BP 118/93 Pulse 89 Temp 37.1 C (98.7 F) Resp 18 Wt 66.8 kg (147 lb 4.3 oz) SpO2 97% BMI 29.25 kg/m Physical Exam Vitals and nursing note reviewed. Constitutional: General: She is not in acute distress. Appearance: Normal appearance. She is normal weight. She is not ill-appearing, toxic-appearing or diaphoretic. HENT: Head: Normocephalic and atraumatic. Comments: +frontal sinus pressure +maxillary sinus pressure Right Ear: Ear canal and external ear normal. Left Ear: Ear canal and external ear normal. Ears: Comments: B/L erythema Nose: Congestion present. No rhinorrhea. Mouth/Throat: Mouth: Mucous membranes are moist. Pharynx: Posterior oropharyngeal erythema present. No oropharyngeal exudate. Eyes: General: Right eye: No discharge. Left eye: No discharge. Extraocular Movements: Extraocular movements intact. Conjunctiva/sclera: Conjunctivae normal. Pupils: Pupils are equal, round, and reactive to light. Cardiovascular: Rate and Rhythm: Normal rate and regular rhythm. Pulses: Normal pulses. Heart sounds: Normal heart sounds. No murmur heard. No friction rub. Pulmonary: Effort: Pulmonary effort is normal. No respiratory distress. Breath sounds: Normal breath sounds. No stridor. No wheezing, rhonchi or rales. Chest: Chest wall: No tenderness. Abdominal: General: Abdomen is flat. There is no distension. Palpations: Abdomen is soft. There is no mass. Tenderness: There is no abdominal tenderness. There is no right CVA tenderness, left CVA tenderness, guarding or rebound. Hernia: No hernia is present. Musculoskeletal: General: No swelling, tenderness, deformity or signs of injury. Normal range of motion. Cervical back: Normal range of motion and neck supple. No rigidity. Right lower leg: No edema. Left lower leg: No edema. Lymphadenopathy: Cervical: No cervical adenopathy. Skin: General: Skin is warm and dry. Capillary Refill: Capillary refill takes less than 2 seconds. Coloration: Skin is not jaundiced or pale. Findings: No bruising, erythema, lesion or rash. Neurological: General: No focal deficit present. Mental Status: She is alert and oriented to person, place, and time. Cranial Nerves: No cranial nerve deficit. Sensory: No sensory deficit. Motor: No weakness. Coordination: Coordination normal. Gait: Gait normal. Psychiatric: Mood and Affect: Mood normal. Behavior: Behavior normal. Thought Content: Thought content normal. Judgment: Judgment normal. Assessment and Plan ASSESSMENT/PLAN: 1. Acute cough - ICD9: 786.2, ICD10: R05.1 (primary diagnosis) X 8 days Worsening - XR CHEST 2V FRONTAL/LAT-obtained and will call with results 2. Rhinosinusitis - ICD9: 473.9, ICD10: J32.9 - Will begin treatment with as per antibiotic as written, see orders - The patient should also be given OTC cough and cold meds as needed, warm salt water gargles, throat lozenges and/or OTC throat spray as needed, and nasal saline gtts and suction prn for the first 5-7 days of treatment. - Supportive care with plenty of fluids, rest, and analgesia prn. - Follow up in 3-5 days if symptoms persist or worsen. Kika Thompson APRN.MASTER [employer] TECHNICIAN documented in this encounter [facility] 12-14-2024 Note HNO ID: [id number] Author: ABNER DENNY APRN.ISABELLA Service: ? Author Type: Nurse Practitioner Type: Progress Notes Filed: 12/14/2024 10:18 Note Text: SUBJECTIVE Nella Benítez is a 74 year old female here today for acute concern. Chief Complaint Patient presents with: Pain: worst of the pain is hands, shoulder, hips and knees. Cough: did start with a dry cough this am. Has a tickle in her throat slight headache HPI Nella Benítez is a 74 year old female. She is an established patient of Eunice Joe MD. Here today for issues with joint pain in the joints of her hands, shoulders, hips and knees. She has had chronic myalgias and arthralgias. Has had toradol in the past and it was helpful. Would like a toradol injection. Joints are without redness and no increased warmth. No fever or chills or nausea or vomiting. Her medications were reviewed today and her list is now up to date. Medications Current Outpatient Medications Medication Sig levothyroxine (SYNTHROID) 50 mcg tablet Take 1 tablet by mouth once daily. lisinopril 2.5 mg tablet Take 1 tablet by mouth once daily. (Cardiology filling) pantoprazole DR (PROTONIX) 40 mg tablet Take 1 tablet by mouth two times a day. As directed baclofen 10 mg tablet Take 1 tablet by mouth two times a day as needed. ALPRAZolam (XANAX) 0.5 mg tablet Take 1 tablet by mouth two times a day as needed for up to 60 days. For Anxiety and SOB related to throat/laryngospasm as directed buPROPion SR (WELLBUTRIN SR) 150 mg 12 hr tablet Take 1 tablet by mouth once daily. busPIRone (BUSPAR) 15 mg tablet Take 1.5 tablets by mouth two times a day. sucralfate (CARAFATE) 1 gram tablet Take 1 tablet by mouth four times daily. As directed for flare ups. May dissolve in 1 to 2 teaspoons of water then swallow. Cholecalciferol, Vitamin D3, 125 mcg (5,000 unit) cap Hold for the month of August then resume once weekly in September. citalopram (CELEXA) 40 mg tablet Take 1 tablet by mouth once daily. meloxicam (MOBIC) 15 mg tablet Take 1 tablet by mouth once daily. Take with food. acetaminophen (TYLENOL 8 HOUR) 650 mg CR tablet Take 2 tablets by mouth every 8 hours as needed for pain. (try this one) calcium carbonate 600 mg-cholecalciferol 200 units (CALCIUM 600 + D,3,) 600 mg(1,500mg) -200 unit tab Take 1 tablet by mouth twice daily. Calcium viactive chewable fexofenadine (ALVINA) 180 mg tablet Take 180 mg by mouth once daily. [START ON 12/15/2024] keTORolac (TORADOL) 10 mg tablet Take 1 tablet by mouth every 6 hours as needed for pain for up to 4 days. Hold Meloxicam while taking Toradol. Patient should start on December 15, 2024. Current Facility-Administered Medications Medication Dose Route Frequency keTORolac 30 mg injection (Toradol) 30 mg INTRAMUSCULAR ONCE (AMB - Up to 30 Days) ALLERGIES Allergen Reactions Latex Rash, Itching Actonel [Risedronat* GI Upset Fosamax [Alendronat* GI Upset ACTIVE PROBLEM LIST Chintan (Obstructive Sleep Apnea) - 03/25/2024 Comment: CHARMAINE Mims Pap being followed by Neurology Larisa Dukes Stage 3a Chronic Kidney Disease ([facility]) - 02/04/2023 Paroxysmal Svt (Supraventricular Tachycardia) ([facility]) - 02/04/2023 Essential Hypertension - 09/14/2021 Comment: Higher than usual today--attributed to persistent severe pain from comrpression fractures. 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 Hypothyroidism - 08/31/2013 Si (Sacroiliac) Joint Dysfunction - 11/03/2011 Diarrhea - 01/02/2010 Diverticulosis of Colon (Without Mention of Hemorrhage) - 01/02/2010 Internal Hemorrhoids Without Mention of Complication - 01/02/2010 External Hemorrhoids Without Mention of Complication - 01/02/2010 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 Spouse non-smoker. Vaping Use Vaping status: Never Used Substance Use Topics Alcohol use: Yes Comment: Occasional, once or twice per month. Drug use: No Review of Systems Musculoskeletal: Positive for arthralgias. OBJECTIVE BP 136/84 Pulse 85 Temp (Src) 98.2 (Tympanic) Wt 147 lb 4.3 oz (66.8kg) SpO2 96% Physical Exam Vitals and nursing note reviewed. Con (more content not included)... [facility] 12-14-2024 History of Presen t illness Narrative SUBJECTIVE Nella Benítez is a 74 year old female here today for acute concern. Chief Complaint Patient presents with: Pain: worst of the pain is hands, shoulder, hips and knees. Cough: did start with a dry cough this am. Has a tickle in her throat slight headache HPI Nella Benítez is a 74 year old female. She is an established patient of Eunice Joe MD. Here today for issues with joint pain in the joints of her hands, shoulders, hips and knees. She has had chronic myalgias and arthralgias. Has had toradol in the past and it was helpful. Would like a toradol injection. Joints are without redness and no increased warmth. No fever or chills or nausea or vomiting. Her medications were reviewed today and her list is now up to date. Medications Current Outpatient Medications Medication Sig levothyroxine (SYNTHROID) 50 mcg tablet Take 1 tablet by mouth once daily. lisinopril 2.5 mg tablet Take 1 tablet by mouth once daily. (Cardiology filling) pantoprazole DR (PROTONIX) 40 mg tablet Take 1 tablet by mouth two times a day. As directed baclofen 10 mg tablet Take 1 tablet by mouth two times a day as needed. ALPRAZolam (XANAX) 0.5 mg tablet Take 1 tablet by mouth two times a day as needed for up to 60 days. For Anxiety and SOB related to throat/laryngospasm as directed buPROPion SR (WELLBUTRIN SR) 150 mg 12 hr tablet Take 1 tablet by mouth once daily. busPIRone (BUSPAR) 15 mg tablet Take 1.5 tablets by mouth two times a day. sucralfate (CARAFATE) 1 gram tablet Take 1 tablet by mouth four times daily. As directed for flare ups. May dissolve in 1 to 2 teaspoons of water then swallow. Cholecalciferol, Vitamin D3, 125 mcg (5,000 unit) cap Hold for the month of August then resume once weekly in September. citalopram (CELEXA) 40 mg tablet Take 1 tablet by mouth once daily. meloxicam (MOBIC) 15 mg tablet Take 1 tablet by mouth once daily. Take with food. acetaminophen (TYLENOL 8 HOUR) 650 mg CR tablet Take 2 tablets by mouth every 8 hours as needed for pain. (try this one) calcium carbonate 600 mg-cholecalciferol 200 units (CALCIUM 600 + D,3,) 600 mg(1,500mg) -200 unit tab Take 1 tablet by mouth twice daily. Calcium viactive chewable fexofenadine (ALVINA) 180 mg tablet Take 180 mg by mouth once daily. [START ON 12/15/2024] keTORolac (TORADOL) 10 mg tablet Take 1 tablet by mouth every 6 hours as needed for pain for up to 4 days. Hold Meloxicam while taking Toradol. Patient should start on December 15, 2024. Current Facility-Administered Medications Medication Dose Route Frequency keTORolac 30 mg injection (Toradol) 30 mg INTRAMUSCULAR ONCE (AMB - Up to 30 Days) ALLERGIES Allergen Reactions Latex Rash, Itching Actonel [Risedronat* GI Upset Fosamax [Alendronat* GI Upset ACTIVE PROBLEM LIST Chintan (Obstructive Sleep Apnea) - 03/25/2024 Comment: CHARMAINE Anaya being followed by Neurology Larisa Dukes Stage 3a Chronic Kidney Disease ([facility]) - 02/04/2023 Paroxysmal Svt (Supraventricular Tachycardia) ([facility]) - 02/04/2023 Essential Hypertension - 09/14/2021 Comment: Higher than usual today--attributed to persistent severe pain from comrpression fractures. 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 Hypothyroidism - 08/31/2013 Si (Sacroiliac) Joint Dysfunction - 11/03/2011 Diarrhea - 01/02/2010 Diverticulosis of Colon (Without Mention of Hemorrhage) - 01/02/2010 Internal Hemorrhoids Without Mention of Complication - 01/02/2010 External Hemorrhoids Without Mention of Complication - 01/02/2010 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 Spouse non-smoker. Vaping Use Vaping status: Never Used Substance Use Topics Alcohol use: Yes Comment: Occasional, once or twice per month. Drug use: No Review of Systems Musculoskeletal: Positive for arthralgias. OBJECTIVE BP 136/84 Pulse 85 Temp (Src) 98.2 (Tympanic) Wt 147 lb 4.3 oz (66.8kg) SpO2 96% Physical Exam Vitals and nursing note reviewed. Constitutional: General: She is awake. She is not in acute distress. Appearance: Normal appearance. She is well-developed and well-groomed. She is not ill-appearing, toxic-appearing or diaphoretic. HENT: Head: Normocephalic. Right Ear: External ear normal. Left Ear: External ear normal. Nose: Nose normal. Eyes: General: Vision grossly intact. Conjunctiva/sclera: Conjunctivae normal. Pupils: Pupils are equal, round, and reactive to light. Neck: Vascular: No JVD. Trachea: Trachea normal. Pulmonary: Effort: Pulmonary effort is normal. No accessory muscle usage, prolonged expiration or respiratory distress. Musculoskeletal: General: No swelling (joints free from redness and no increased warmth). Cervical back: Neck supple. Skin: General: Skin is warm and dry. Capillary Refill: Capillary refill takes less than 2 seconds. Neurological: General: No focal deficit present. Mental Status: She is alert and oriented to person, place, and time. Mental status is at baseline. Psychiatric: Attention and Perception: Attention and perception normal. Mood and Affect: Mood and affect normal. Speech: Speech normal. Behavior: Behavior normal. Behavior is cooperative. Thought Content: Thought content normal. Cognition and Memory: Cognition and memory normal. Judgment: Judgment normal. ASSESSMENT/PLAN: 1. Arthralgia of multiple joints - ICD9: 719.49, ICD10: M25.50 Toradol 30 mg given her kidney function. Can follow up with x4 days starting tomorrow of oral Toradol. She has had this in the past and done well. She is aware to hold her Meloxicam and avoid all other NSAIDs while taking this. - KETOROLAC 30 MG/ML (1 ML) INJECTION SOLUTION - KETOROLAC 10 MG TABLET Portions of this note have been entered by ancillary staff. I have reviewed and when necessary edited, so that they are an adequate record of my encounter with this patient Please note that parts of this document were created using voice recognition software and therefore may contain grammatical errors. Patient verbalizes understanding of instructions from today's visit and in agreement with treatment plan. Questions answered. Agrees to call the office if questions, concerns of issues with acute symptoms not improving or if they worsen. See diagnoses and orders for additional plan(s). Allergies and medications were reviewed, list was updated, and refills given if needed. Past medical, surgical, social, and family history reviewed and updated as appropriate. Encouraged proper diet & exercise as well as compliance with taking medications. Age-appropriate health preventative measures were discussed. Return if symptoms worsen or fail to improve, for Keep next scheduled appointment.. Abner Denny APRN-ISABELLA documented in this encounter [facility] 12-03-2024 Instructions Eunice Joe MD - 12/03/2024 11:54 AM EST - Continue taking your current medications as prescribed. - Start taking Baclofen 10 mg twice daily as needed for muscle spasms; discontinue Tizanidine. - Increase your fluid intake to at least 6-8 cups of water daily to support kidney function. - Incorporate more iron-rich foods into your diet, such as liver, beans, nuts, meats, green leafy vegetables, prunes, and raisins. - Continue taking Vitamin D 5000 IU once a week. - Consider using a weighted vest for mild weight-bearing exercises to help improve bone density. - Monitor for any signs of black or tarry stools, or blood in the stools or urine, and report any findings. - Follow up with Dr. Gomez for ongoing management of osteoporosis and Prolia treatment. - Next appointment is scheduled for March. - Complete lab tests every 6 months as per standing orders. documented in this encounter [facility] 12-03-2024 Note HNO ID: [id number] Author: EUNICE JOE MD Service: ? Author Type: Physician Type: Progress Notes Filed: 12/03/2024 16:20 Note Text: This note was created using [employer]. Subjective Nella Benítez is a 74 year old female. Patient presents with: 4 month f/u SUBJECTIVE: Nella Benítez is a 74 year old year old lady here today for 4 month follow up appointment for review of medical conditions. Nella Benítez is a 74-year-old female with a history of medullary sponge kidney, osteoporosis, and chronic pain, presenting for a 4-month follow-up visit. Nella reports feeling "achy all over" and inquires about alternative medications to meloxicam for joint pain and swelling in her knee. She is currently taking tizanidine at night and occasionally during the day. She also reports post-nasal drip, which is being managed with Flonase. She is currently taking multiple medications, including buspirone, alprazolam, citalopram, thyroid medication, lisinopril, Protonix, sucralfate, and tizanidine. She mentions a recent issue with her buspirone prescription, where she was told she had to refill it by November 05. She is also taking vitamin D 5,000 IU once a week, which she reports has made a difference in her vitamin D levels. She is also on Prolia for osteoporosis, prescribed by Dr. Gomez. She reports drinking about 48 ounces of water daily and consuming other fluids such as soup, milk, and juice. She denies any symptoms of hypoglycemia, such as feeling shaky. She also denies any black or tarry stools, blood in the stools, or blood in the urine. Nella reports that lifting even a coffee pot causes significant back pain. She has a history of a pinched nerve and has been advised against surgery by Dr. Sahu due to her osteoporosis. She is currently seeing Dr. Gomez for endocrinology and is on Prolia. She also reports a curvature in her thoracic spine, which causes muscle tightness and discomfort when wearing pants. She practices isometric exercises in bed every morning and evening to alleviate some of the discomfort. She also mentions a recent dental issue and a history of COVID-19 and pneumonia last year in April and May. 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 Nontoxic multinodular goiter CHINTAN (obstructive sleep apnea) 03/25/2024 Persistent disorder of initiating or maintaining sleep 06/30/2005 Senile osteoporosis Current Outpatient Medications Medication Sig ALPRAZolam (XANAX) 0.5 mg tablet Take 1 tablet by mouth two times a day as needed for up to 60 days. For Anxiety and SOB related to throat/laryngospasm as directed tiZANidine (ZANAFLEX) 4 mg tablet Take 1 tablet by mouth two times a day as needed. buPROPion SR (WELLBUTRIN SR) 150 mg 12 hr tablet Take 1 tablet by mouth once daily. busPIRone (BUSPAR) 15 mg tablet Take 1.5 tablets by mouth two times a day. sucralfate (CARAFATE) 1 gram tablet Take 1 tablet by mouth four times daily. As directed for flare ups. May dissolve in 1 to 2 teaspoons of water then swallow. Cholecalciferol, Vitamin D3, 125 mcg (5,000 unit) cap Hold for the month of August then resume once weekly in September. citalopram (CELEXA) 40 mg tablet Take 1 tablet by mouth once daily. meloxicam (MOBIC) 15 mg tablet Take 1 tablet by mouth once daily. Take with food. acetaminophen (TYLENOL 8 HOUR) 650 mg CR tablet Take 2 tablets by mouth every 8 hours as needed for pain. (try this one) calcium carbonate 600 mg-cholecalciferol 200 units (CALCIUM 600 + D,3,) 600 mg(1,500mg) -200 unit tab Take 1 tablet by mouth twice daily. Calcium viactive chewable fexofenadine (ALVINA) 180 mg tablet Take 180 mg by mouth once daily. levothyroxine (SYNTHROID) 50 mcg tablet Take 1 tablet by mouth once daily. lisinopril 2.5 mg tablet Take 1 tablet by mouth once daily. (Cardiology filling) pantoprazole DR (PROTONIX) 40 mg tablet Take 1 tablet by mouth two times a day. As directed No current facility-administered medications for this visit. Review of Systems Objective BP 140/76 Pulse 71 Resp 16 Wt 67 kg (147 lb 11.3 oz) BMI 29.33 kg/m? Last 5 Encounter Wt Readings: Date: Wt: 12/03/2024 67 kg (147 lb 11.3 oz) 08/25/2024 66.1 kg (145 lb 12.8 oz) 08/10/2024 67.1 kg (147 lb 14.9 oz) 06/28/2024 64.1 kg (141 lb 5 oz) 06/07/2024 64.2 kg (141 lb 8.6 oz) No waist measurement recorded Estimated body mass index is 29.33 kg/m? as calcul (more content not included)... [facility] 12-03-2024 History of Presen t illness Narrative This note was created using [employer]. Subjective Nella Benítez is a 74 year old female. Patient presents with: 4 month f/u SUBJECTIVE: Nella Benítez is a 74 year old year old lady here today for 4 month follow up appointment for review of medical conditions. Nella Benítez is a 74-year-old female with a history of medullary sponge kidney, osteoporosis, and chronic pain, presenting for a 4-month follow-up visit. Nella reports feeling "achy all over" and inquires about alternative medications to meloxicam for joint pain and swelling in her knee. She is currently taking tizanidine at night and occasionally during the day. She also reports post-nasal drip, which is being managed with Flonase. She is currently taking multiple medications, including buspirone, alprazolam, citalopram, thyroid medication, lisinopril, Protonix, sucralfate, and tizanidine. She mentions a recent issue with her buspirone prescription, where she was told she had to refill it by November 05. She is also taking vitamin D 5,000 IU once a week, which she reports has made a difference in her vitamin D levels. She is also on Prolia for osteoporosis, prescribed by Dr. Gomez. She reports drinking about 48 ounces of water daily and consuming other fluids such as soup, milk, and juice. She denies any symptoms of hypoglycemia, such as feeling shaky. She also denies any black or tarry stools, blood in the stools, or blood in the urine. Nella reports that lifting even a coffee pot causes significant back pain. She has a history of a pinched nerve and has been advised against surgery by Dr. Sahu due to her osteoporosis. She is currently seeing Dr. Gomez for endocrinology and is on Prolia. She also reports a curvature in her thoracic spine, which causes muscle tightness and discomfort when wearing pants. She practices isometric exercises in bed every morning and evening to alleviate some of the discomfort. She also mentions a recent dental issue and a history of COVID-19 and pneumonia last year in April and May. 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 Nontoxic multinodular goiter CHINTAN (obstructive sleep apnea) 03/25/2024 Persistent disorder of initiating or maintaining sleep 06/30/2005 Senile osteoporosis Current Outpatient Medications Medication Sig ALPRAZolam (XANAX) 0.5 mg tablet Take 1 tablet by mouth two times a day as needed for up to 60 days. For Anxiety and SOB related to throat/laryngospasm as directed tiZANidine (ZANAFLEX) 4 mg tablet Take 1 tablet by mouth two times a day as needed. buPROPion SR (WELLBUTRIN SR) 150 mg 12 hr tablet Take 1 tablet by mouth once daily. busPIRone (BUSPAR) 15 mg tablet Take 1.5 tablets by mouth two times a day. sucralfate (CARAFATE) 1 gram tablet Take 1 tablet by mouth four times daily. As directed for flare ups. May dissolve in 1 to 2 teaspoons of water then swallow. Cholecalciferol, Vitamin D3, 125 mcg (5,000 unit) cap Hold for the month of August then resume once weekly in September. citalopram (CELEXA) 40 mg tablet Take 1 tablet by mouth once daily. meloxicam (MOBIC) 15 mg tablet Take 1 tablet by mouth once daily. Take with food. acetaminophen (TYLENOL 8 HOUR) 650 mg CR tablet Take 2 tablets by mouth every 8 hours as needed for pain. (try this one) calcium carbonate 600 mg-cholecalciferol 200 units (CALCIUM 600 + D,3,) 600 mg(1,500mg) -200 unit tab Take 1 tablet by mouth twice daily. Calcium viactive chewable fexofenadine (ALVINA) 180 mg tablet Take 180 mg by mouth once daily. levothyroxine (SYNTHROID) 50 mcg tablet Take 1 tablet by mouth once daily. lisinopril 2.5 mg tablet Take 1 tablet by mouth once daily. (Cardiology filling) pantoprazole DR (PROTONIX) 40 mg tablet Take 1 tablet by mouth two times a day. As directed No current facility-administered medications for this visit. Review of Systems Objective BP 140/76 Pulse 71 Resp 16 Wt 67 kg (147 lb 11.3 oz) BMI 29.33 kg/m Last 5 Encounter Wt Readings: Date: Wt: 12/03/2024 67 kg (147 lb 11.3 oz) 08/25/2024 66.1 kg (145 lb 12.8 oz) 08/10/2024 67.1 kg (147 lb 14.9 oz) 06/28/2024 64.1 kg (141 lb 5 oz) 06/07/2024 64.2 kg (141 lb 8.6 oz) No waist measurement recorded Estimated body mass index is 29.33 kg/m as calculated from the following: Height as of 11/11/23: 151.1 cm (4' 11.5"). Weight as of this encounter: 67 kg (147 lb 11.3 oz). Last 5 Encounter BP Readings: Date: BP: 12/03/2024 140/76 08/25/2024 134/90 08/10/2024 122/80 06/28/2024 138/88 06/07/2024 150/92 Physical Exam Constitutional: Appearance: Normal appearance. HENT: Head: Normocephalic. Eyes: Conjunctiva/sclera: Conjunctivae normal. Cardiovascular: Rate and Rhythm: Normal rate and regular rhythm. Heart sounds: Normal heart sounds. Pulmonary: Effort: Pulmonary effort is normal. Breath sounds: Normal breath sounds. Musculoskeletal: Right lower leg: No edema. Left lower leg: No edema. Comments: Scoliosis noted and muscle spasm noted on left side of spine where spine curves to left Skin: General: Skin is warm and dry. Neurological: General: No focal deficit present. Mental Status: She is alert and oriented to person, place, and time. Psychiatric: Mood and Affect: Mood normal. Behavior: Behavior normal. Thought Content: Thought content normal. Judgment: Judgment normal. Latest Ref Rng 11/07/2023 03/10/2024 06/11/2024 11/23/2024 Protein, Total 6.3 - 8.0 g/dL 6.3 6.6 6.4 6.4 Albumin 3.9 - 4.9 g/dL 4.2 4.1 4.4 4.3 Calcium 8.5 - 10.2 mg/dL 9.1 9.3 9.4 9.2 Bilirubin, Total 0.2 - 1.3 mg/dL 0.3 0.4 0.4 0.2 Alkaline Phosphatase 34 - 123 U/L 66 70 64 55 AST 13 - 35 U/L 15 15 16 14 ALT 7 - 38 U/L 9 12 11 11 Glucose 74 - 99 mg/dL 90 83 100 (H) 66 (L) BUN 7 - 21 mg/dL 9 13 11 13 Creatinine 0.58 - 0.96 mg/dL 0.90 1.00 (H) 1.03 (H) 1.03 (H) Sodium 136 - 144 mmol/L 139 139 139 138 Potassium 3.7 - 5.1 mmol/L 3.6 (L) 4.0 3.7 4.5 Chloride 98 - 107 mmol/L 101 104 103 105 CO2 22 - 30 mmol/L 27 23 23 25 Anion Gap 8 - 15 mmol/L 11 12 13 8 eGFR >=60 mL/min/1.73m 68 60 58 (L) 57 (L) WBC 3.70 - 11.00 k/uL 5.70 7.27 6.35 RBC 3.90 - 5.20 m/uL 3.97 4.12 3.83 (L) Hemoglobin 11.5 - 15.5 g/dL 11.2 (L) 11.8 10.5 (L) Hematocrit 36.0 - 46.0 % 36.0 38.3 35.1 (L) MCV 80.0 - 100.0 fL 90.7 93.0 91.6 MCH 26.0 - 34.0 pg 28.2 28.6 27.4 MCHC 30.5 - 36.0 g/dL 31.1 30.8 29.9 (L) RDW-CV 11.5 - 15.0 % 13.5 15.2 (H) 14.6 Platelet Count 150 - 400 k/uL 382 439 (H) 389 MPV 9.0 - 12.7 fL 9.8 9.7 9.5 Absolute nRBC <0.01 k/uL <0.01 <0.01 <0.01 TSH 0.270 - 4.200 mIU/L 0.653 0.644 Free T4 0.9 - 1.7 ng/dL 1.4 1.4 Free T3 2.3 - 4.1 pg/mL 2.4 2.5 Vitamin D 25 Hydroxy 31.0 - 80.0 ng/mL 122.0 (H) 62.7 PTH, Intact 15 - 65 pg/mL 57 Legend: (L) Low (H) High Assessment and Plan # Acquired hypothyroidism (E03.9) - TSH remains below 1, with T4 and T3 within normal limits. - Continue current thyroid medication. - Refill for thyroid medication sent to [facility] [place] pharmacy with instructions to hold until due. # Osteoporosis with current pathological fracture with routine healing, unspecified osteoporosis type, subsequent encounter (M80.00XD) - Recent bone density test performed on 12/01/23 at [facility]; next due in 2025. - Continue Prolia as prescribed by Dr. Gomez. - Discussed benefits of weight-bearing exercises to improve bone density; recommended considering a weighted vest for mild weight-bearing. # Scoliosis of thoracolumbar spine, unspecified scoliosis type (M41.9) - Discussed anatomical changes due to scoliosis contributing to muscle asymmetry and potential nerve impingement. - Recommended isometric exercises and stretching to alleviate muscle tension and discomfort. # Medullary sponge kidney (Q61.5) # Stage 3a chronic kidney disease (HCC) (N18.31) - Creatinine slightly elevated at 1.03 mg/dL; BUN within normal limits. - Emphasized importance of adequate hydration to support kidney function; advised increasing fluid intake to 6-8 cups of water daily. - No evidence of progressive kidney dysfunction. # Anxiety (F41.9) - Continue current medications: buspirone 1.5 tablets BID, alprazolam as needed. - Refill for buspirone confirmed with sufficient supply until July. - Alprazolam refill available until January. # Compression fracture of T12 vertebra, sequela (S22.080S) - Managed with current treatment plan for osteoporosis. - Continue follow-up with Dr. Gomez for osteoporosis management. # Anemia, unspecified type (D64.9) - Hemoglobin decreased to 10.5 g/dL from 11.8 g/dL; MCHC also low. - Discussed potential iron deficiency; recommended increasing dietary iron intake through foods such as liver, beans, nuts, meats, green leafy vegetables, prunes, and raisins. - Monitor for signs of gastrointestinal bleeding. Eunice Joe MD documented in this encounter [facility] 11-15-2024 Telephone encounter Note The following approved medication requests have been transmitted electronically. Requested Prescriptions Signed Prescriptions Disp Refills ALPRAZolam (XANAX) 0.5 mg tablet 60 tablet 1 Sig: Take 1 tablet by mouth two times a day as needed for up to 60 days. For Anxiety and SOB related to throat/laryngospasm as directed Authorizing Provider: EUNICE JOE MD [facility] 11-15-2024 Miscellaneous Notes The following approved medication requests have been transmitted electronically. Requested Prescriptions Signed Prescriptions Disp Refills ALPRAZolam (XANAX) 0.5 mg tablet 60 tablet 1 Sig: Take 1 tablet by mouth two times a day as needed for up to 60 days. For Anxiety and SOB related to throat/laryngospasm as directed Authorizing Provider: EUNICE JOE MD Prescription Refill Information The patient has been identified by name and date of : Yes Caregiver verified no other encounters exist for this prescription request: Yes Caregiver confirmed with patient/requestor that no other refills are due, in the near future, with this provider at this time: Yes The last office visit in the department: 08/10/24 Does the patient have a future office visit with this provider/department: Yes Requested Prescriptions Pending Prescriptions Disp Refills ALPRAZolam (XANAX) 0.5 mg tablet 60 tablet 1 Sig: Take 1 tablet by mouth two times a day as needed for up to 60 days. For Anxiety and SOB related to throat/laryngospasm as directed Telma Avila LPN November 14, 2024 8:31 AM documented in this encounter [facility] 11-14-2024 Telephone encounter Note Prescription Refill Information The patient has been identified by name and date of : Yes Caregiver verified no other encounters exist for this prescription request: Yes Caregiver confirmed with patient/requestor that no other refills are due, in the near future, with this provider at this time: Yes The last office visit in the department: 08/10/24 Does the patient have a future office visit with this provider/department: Yes Requested Prescriptions Pending Prescriptions Disp Refills ALPRAZolam (XANAX) 0.5 mg tablet 60 tablet 1 Sig: Take 1 tablet by mouth two times a day as needed for up to 60 days. For Anxiety and SOB related to throat/laryngospasm as directed Telma Avila LPN November 14, 2024 8:31 AM [facility] 11-14-2024 Telephone encounter Note Refill request sent [facility] 11-14-2024 Miscellaneous Notes Refill request sent documented in this encounter [facility] 08-25-2024 Telephone encounter Note Orders faxed to [facility] to discontinue Cpap, per provider. JIMBO Bernal [facility] 08-25-2024 Miscellaneous Notes Orders faxed to [facility] to discontinue Cpap, per provider. JIMBO Bernal documented in this encounter [facility] 08-25-2024 History of Presen t illness Narrative Images from the original note were not included. [facility] Follow up/ Established patient visit Date of last visit : 03/25/2024 The following Impression/Plan was copied and pasted from the patient's last [facility] visit on 03/25/24: IMPRESSION/PLAN: G47.33 CHINTAN (obstructive sleep apnea) (primary encounter diagnosis) I10 Essential hypertension Nella Benítez is a 73 year old female with mild CHINTAN with secondary diagnosis of HTN. PMH of fibromyalgia, HLD, paroxysmal SVT, GERD, medullary sponge kidney, CKD, hypothyroidism, allergic rhinitis, cervical disc disease, spinal stenosis, anxiety. We reviewed her PSG results, discussed CHINTAN, risks of untreated CHINTAN, symptoms of CHINTAN, treatment options. Her CHINTAN isn't severe enough to qualify for [employer]. She has dental issues and TMD so she's not a good candidate for oral mandibular advancement device. Discussed PAP therapy in detail. Would look for significant improvement in her frequent nocturnal awakenings and nocturia with PAP therapy. Going away for April and May, she [place] are driving [place]. Will see if [facility] can start her on PAP before she leaves. - Will start Auto CPAP 5-15 cmH2O with a Nasal pillows mask or nasal mask - I will have a prescription sent to a [employer] company - [facility] who will be calling you in the next 1-2 weeks or so. Please call them directly or us if you do not hear from them in this time frame. - You should be eligible for new supplies approximately every 3-6 months, depending on your insurance coverage. - If your mask doesn't fit well, call the [employer] company before 30 days are up to get a new mask without an additional charge. - Insurance requires regular usage and periodic office follow ups for PAP therapy, to continue to cover supplies. - Follow up in 3 months in the office. Recommend scheduling this appointment now to ensure the best time for you. Ruth Dukes, HAND FRAME [employer] K[employer]TER.MASTER [employer]OT[employer] GLASS TECHNICIAN Here for follow up for mild CIHNTAN which is exacerbated to severe in REM sleep. Mild in supine sleep. AHI is normal in off-supine sleep. Her PSG was ordered by Cardiology where she is followed for paroxysmal SVT. Just looking at her CPAP makes her anxious; she is having a hard time using it. Has chronic back pain so she can't get comfortable at night. She has dental issues and TMD so she's not a good candidate for oral mandibular advancement device. SLEEP APNEA Sleep apnea type : CHINTAN, Most Recent Apnea-Hypopnea Index (AHI): 7.2, supine AHI 11.4, REM AHI 36 Treatment : PAP therapy DME: [facility] PAP History: Current PAP settin-15 cm H2O. Reviewed objective PAP compliance data: Mask type: nasal mask There is not a perceived benefit by the patient PATIENT-ENTERED QUESTIONNAIRE SLEEP SCORES 08/24/2024 Sleep Questions Reason for visit: Sleep apnea Difficulty falling or staying asleep or poor sleep quality Accidents or near accidents due to drowsy drivin Multiple values from one day are sorted in reverse-chronological order 03/18/2024 08/24/2024 [place] Sleepiness Scale Score 3 (No clinically significant daytime sleepiness) 1 (No clinically significant daytime sleepiness) 03/18/2024 08/24/2024 PROMIS CAT Sleep Disturbance PROMIS Sleep Disturbance T-Score 54 (within normal limits) 54 (within normal limits) PROMIS Sleep Disturbance Percentile 34 34 03/18/2024 Restless Leg Syndrome Score 0 (No Symptoms) 12/19/2019 01/17/2021 03/24/2024 PHQ-9 Score 6 6 0 04/17/2021 01/09/2022 03/13/2024 PROMIS Global Health - (T-Scores - the mean of general population = 50. Five points is a clinically meaningful difference.) Physical T-Score 29.6 29.6 47.7 Mental T-Score 43.5 38.8 43.5 ALLERGIES Allergen Reactions Latex Rash, Itching Actonel [Risedronat* GI Upset Fosamax [Alendronat* GI Upset CURRENT MEDICATIONS: tiZANidine (ZANAFLEX) 4 mg tablet Take 1 tablet by mouth two times a day as needed. buPROPion SR (WELLBUTRIN SR) 150 mg 12 hr tablet Take 1 tablet by mouth once daily. busPIRone (BUSPAR) 15 mg tablet Take 1.5 tablets by mouth two times a day. sucralfate (CARAFATE) 1 gram tablet Take 1 tablet by mouth four times daily. As directed for flare ups. May dissolve in 1 to 2 teaspoons of water then swallow. ALPRAZolam (XANAX) 0.5 mg tablet Take 1 tablet by mouth two times a day as needed for up to 60 days. For Anxiety and SOB related to throat/laryngospasm as directed Cholecalciferol, Vitamin D3, 125 mcg (5,000 unit) cap Hold for the month of August then resume once weekly in September. lisinopril 2.5 mg tablet Take 2.5 mg by mouth once daily. Stopped taking routinely Thursday (08/08) and using as needed for now citalopram (CELEXA) 40 mg tablet Take 1 tablet by mouth once daily. meloxicam (MOBIC) 15 mg tablet Take 1 tablet by mouth once daily. Take with food. pantoprazole DR (PROTONIX) 40 mg tablet Take 1 tablet by mouth two times a day. As directed levothyroxine (SYNTHROID) 50 mcg tablet Take 1 tablet by mouth once daily. acetaminophen (TYLENOL 8 HOUR) 650 mg CR tablet Take 2 tablets by mouth every 8 hours as needed for pain. (try this one) calcium carbonate 600 mg-cholecalciferol 200 units (CALCIUM 600 + D,3,) 600 mg(1,500mg) -200 unit tab Take 1 tablet by mouth twice daily. Calcium viactive chewable fexofenadine (ALVINA) 180 mg tablet Take 180 mg by mouth once daily. PHYSICAL EXAMINATION: Vital Signs: BP 134/90 (BP Site: Left Arm, BP Position: Sitting) Pulse 102 Resp 18 Wt 66.1 kg (145 lb 12.8 oz) SpO2 99% BMI 28.96 kg/m PHYSICAL EXAM: General appearance: pleasant, NAD. Tearful when discussing PAP Mental status: alert and oriented, able to provide own history Constitutional: WNL Skin: No visible rashes on exposed skin Neuro: No focal deficits observed, no tremors IMPRESSION: Chintan (obstructive sleep apnea) (primary encounter diagnosis) Intolerance of continuous positive airway pressure (cpap) ventilation Nella Benítez is a 74 year old female with overall mild CHINTAN--her apnea is mild in supine sleep also, and non-existent when off-supine. She hasn't tolerated PAP therapy; in fact, the idea of PAP now makes her very anxious. Because her CHINTAN is mild she can choose not to treat it; I think that is certainly reasonable since PAP is causing her such significant anxiety. She needs to spend some time sleeping supine due to her back pain but she will sleep off-supine when able. PLAN: Order to discontinue [facility] off[facility]supine when able Follow up prn Ruth Dukes APRN.ISABELLA documented in this encounter [facility] 08-25-2024 Note HNO ID: [id number] Author: RUTH DUKES APRN.CNP Service: ? Author Type: Nurse Practitioner Type: Progress Notes Filed: 08/25/2024 15:18 Note Text: [facility] Follow up/ Established patient visit Date of last visit : 03/25/2024 The following Impression/Plan was copied and pasted from the patient's last [facility] Disorders Center visit on 03/25/24: IMPRESSION/PLAN: G47.33 CHINTAN (obstructive sleep apnea) (primary encounter diagnosis) I10 Essential hypertension Nella Benítez is a 73 year old female with mild CHINTAN with secondary diagnosis of HTN. PMH of fibromyalgia, HLD, paroxysmal SVT, GERD, medullary sponge kidney, CKD, hypothyroidism, allergic rhinitis, cervical disc disease, spinal stenosis, anxiety. We reviewed her PSG results, discussed CHINTAN, risks of untreated CHINTAN, symptoms of CHINTAN, treatment options. Her CHINTAN isn't severe enough to qualify for [employer]. She has dental issues and TMD so she's not a good candidate for oral mandibular advancement device. Discussed PAP therapy in detail. Would look for significant improvement in her frequent nocturnal awakenings and nocturia with PAP therapy. Going away for April and May, she and her are driving cross[place]country. Will see if [facility] can start her on PAP before she leaves. - Will start Auto CPAP 5-15 cmH2O with a Nasal pillows mask or nasal mask - I will have a prescription sent to a [employer] - [facility] who will be calling you in the next 1-2 weeks or so. Please call them directly or us if you do not hear from them in this time frame. - You should be eligible for new supplies approximately every 3-6 months, depending on your insurance coverage. - If your mask doesn't fit well, call the [employer] company before 30 days are up to get a new mask without an additional charge. - Insurance requires regular usage and periodic office follow ups for PAP therapy, to continue to cover supplies. - Follow up in 3 months in the office. Recommend scheduling this appointment now to ensure the best time for you. Ruth Dukes APRN.[employer] TECHNICIAN Here for follow up for mild CHINTAN which is exacerbated to severe in REM sleep. Mild in supine sleep. AHI is normal in off-supine sleep. Her PSG was ordered by Cardiology where she is followed for paroxysmal SVT. Just looking at her CPAP makes her anxious; she is having a hard time using it. Has chronic back pain so she can't get comfortable at night. She has dental issues and TMD so she's not a good candidate for oral mandibular advancement device. SLEEP APNEA Sleep apnea type : CHINTAN, Most Recent Apnea-Hypopnea Index (AHI): 7.2, supine AHI 11.4, REM AHI 36 Treatment : PAP therapy DME: [facility] PAP History: Current PAP settin-15 cm H2O. Reviewed objective PAP compliance data: Mask type: nasal mask There is not a perceived benefit by the patient PATIENT-ENTERED QUESTIONNAIRE SLEEP SCORES 08/24/2024 Sleep Questions Reason for visit: Sleep apnea Difficulty falling or staying asleep or poor sleep quality Accidents or near accidents due to drowsy drivin Multiple values from one day are sorted in reverse-chronological order 03/18/2024 08/24/2024 [place] Sleepiness Scale Score 3 (No clinically significant daytime sleepiness) 1 (No clinically significant daytime sleepiness) 03/18/2024 08/24/2024 PROMIS CAT Sleep Disturbance PROMIS Sleep Disturbance T-Score 54 (within normal limits) 54 (within normal limits) PROMIS Sleep Disturbance Percentile 34 34 03/18/2024 Restless Leg Syndrome Score 0 (No Symptoms) 12/19/2019 01/17/2021 03/24/2024 PHQ-9 Score 6 6 0 04/17/2021 01/09/2022 03/13/2024 PROMIS Global Health - (T-Scores - the mean of general population = 50. Five points is a clinically meaningful difference.) Physical T-Score 29.6 29.6 47.7 Mental T-Score 43.5 38.8 43.5 ALLERGIES Allergen Reactions Latex Rash, Itching Actonel [Risedronat* GI Upset Fosamax [Alendronat* GI Upset CURRENT MEDICATIONS: tiZANidine (ZANAFLEX) 4 mg tablet Take 1 tablet by mouth two times a day as needed. buPROPion SR (WELLBUTRIN SR) 150 mg 12 hr tablet Take 1 tablet by mouth once daily. busPIRone (BUSPAR) 15 mg tablet Take 1.5 tablets by mouth two times a day. sucralfate (CARAFATE) 1 gram tablet Take 1 tablet by mouth four times daily. As directed for flare ups. May dissolve in 1 to 2 teaspoons of water then swallow. ALPRAZolam (XANAX) 0.5 mg tablet Take 1 tablet by mouth two times a day as needed for up to 60 days. For Anxiety and SOB related to throat/laryngospasm as directed Cholecalciferol, Vitamin D3, 125 mcg (5,000 unit) cap Hold for the month of August then resume once weekly in September. lisinopril 2.5 mg tablet Take 2.5 mg by mouth once daily. Stopped taking routinely Thursday (08/08) and using as needed for now (more content not included)... [facility] 08-17-2024 Miscellaneous Notes Noted thanks Ruth Dukes APRN.CNP Pt called to cancel appt with Ruth Dukes on 08/25/24. Pt wants Ruth to know that she is canceling because she is having such terrible back pain. She will be seeing Dr Fierro next week for back issues. Pt was transferred to planning division superintendent to reschedule appt with Yoana Dukes. Mi Elmore LPN documented in this encounter [facility] 08-17-2024 Telephone encounter Note Noted thanks Ruth Dukes APRN.MASTER [employer] TECHNICIAN [facility] 08-17-2024 Telephone encounter Note Pt called to cancel appt with Ruth Dukes on 08/25/24. Pt wants Ruth to know that she is canceling because she is having such terrible back pain. She will be seeing Dr Fierro next week for back issues. Pt was transferred to planning division superintendent to reschedule appt with Yoana Dukes. Mi Elmore LPN [facility] 08-10-2024 Instructions Eunice Joe MD - 08/10/2024 1:00 PM EDT - Discontinue Lisinopril as a routine medication; use it only as needed. - Refill for Tizanidine sent to [facility] [place] pharmacy. - Refills for Wellbutrin and BuSpar sent to the pharmacy with instructions to fill when due. - Refill for Carafate sent to the pharmacy. - Refill for Xanax sent to the pharmacy; fill within the next two weeks. - Hold Vitamin D 5000 units for the month of August; resume taking one pill per week starting in September. - Stay hydrated by drinking plenty of water regularly. - Follow-up appointment scheduled in four months. documented in this encounter [facility] 08-10-2024 Note HNO ID: [id number] Author: EUNICE JOE MD Service: ? Author Type: Physician Type: Progress Notes Filed: 08/10/2024 13:01 Note Text: This note was created using [employer]. Subjective Nella Benítez is a 74 year old female. Patient presents with: F/U 4 month SUBJECTIVE: Nella Benítez is a 74 year old year old lady here today for 4 month follow up appointment for review of medical conditions. Nella Benítez is a 74-year-old female with a history of depression, GERD, and back pain, presenting for medication refills. Nella is currently taking multiple medications and requires refills for several of them. She has been taking lisinopril as needed since 08/08/2028, rather than routinely. She also takes tizanidine at night, and her current prescription, written in April, has no remaining refills. She is taking Wellbutrin, which was last filled in October and will run out before her next appointment in November. Similarly, her BuSpar prescription, also filled in October, will run out before her next appointment. She is taking Carafate as needed and has one dose remaining; this prescription will in October. She is also taking vitamin D, thyroid medication, Protonix, meloxicam, and citalopram, with refills available until January and April, respectively. She has one refill remaining on her Xanax prescription, which she plans to fill soon. Nella reports that her depression is well-controlled with her current medication regimen. She is also managing her GERD symptoms with Carafate and Protonix. She has a history of back pain and is scheduled to see Dr. Fierro next week to discuss her cervical, thoracic, and lumbar spine issues. She expresses a desire to have a comprehensive evaluation of her entire spine rather than separate assessments for each region. Nella had lab work done in May, which showed a creatinine level of 1.03 and a BUN within normal limits. Her vitamin D level was elevated at that time. She had thyroid labs done in October, which were within normal limits. She denies any current symptoms suggestive of thyroid dysfunction. 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 For Anxiety and SOB related to throat/laryngospasm as directed lisinopril 2.5 mg tablet Take 2.5 mg by mouth once daily. Stopped taking routinely Thursday (08/08) and using as needed for now citalopram (CELEXA) 40 mg tablet Take 1 tablet by mouth once daily. meloxicam (MOBIC) 15 mg tablet Take 1 tablet by mouth once daily. Take with food. CPAP/BIPAP/OTHER autoCPAP 5-[address] [facility] [address] (PROTONIX) 40 mg tablet Take 1 tablet by mouth two times a day. As directed levothyroxine (SYNTHROID) 50 mcg tablet Take 1 tablet by mouth once daily. Cholecalciferol, Vitamin D3, 125 mcg (5,000 unit) cap Take 1 capsule by mouth once daily. sucralfate (CARAFATE) 1 gram tablet Take 1 tablet by mouth four times daily. As directed for flare ups. May dissolve in 1 to 2 teaspoons of water then swallow. buPROPion SR (WELLBUTRIN SR) 150 mg 12 hr tablet Take 1 tablet by mouth once daily. busPIRone (BUSPAR) 15 mg tablet Take 1.5 tablets by mouth two times a day. acetaminophen (TYLENOL 8 HOUR) 650 mg CR tablet Take 2 tablets by mouth every 8 hours as needed for pain. (try this one) tiZANidine (ZANAFLEX) 4 mg tablet Take 1 tablet by mouth twice daily as needed. calcium carbonate 600 mg-cholecalciferol 200 units (CALCIUM 600 + D,3,) 600 mg(1,500mg) -200 unit tab Take 1 tablet by mouth twice daily. Calcium viactive chewable fexofenadine (ALVINA) 180 mg tablet Take 180 mg by mouth once daily. No current facility-administered medications for this visit. Review of Systems Objective BP 122/80 Pulse 78 Temp 36.5 ?C (97.7 ?F) Resp 16 Wt 67.1 kg (147 lb 14.9 oz) SpO2 100% BMI 29.38 kg/m? Physical Exam Constitutional: Appearance: Normal appearance. HENT: Head: Normocephalic. Eyes: Conjunctiva/sclera: Conjunctivae normal. Cardiovascular: Rate and Rhythm: Normal rate and regular rhythm. Heart sounds: Normal heart sounds. Pulmonary: Effort: Pulmonary effort is normal. (more content not included)... [facility] 08-10-2024 History of Presen t illness Narrative This note was created using [employer]. Subjective Nella Benítez is a 74 year old female. Patient presents with: F/U 4 month SUBJECTIVE: Nella Benítez is a 74 year old year old lady here today for 4 month follow up appointment for review of medical conditions. Nella Benítez is a 74-year-old female with a history of depression, GERD, and back pain, presenting for medication refills. Nella is currently taking multiple medications and requires refills for several of them. She has been taking lisinopril as needed since 08/08/2028, rather than routinely. She also takes tizanidine at night, and her current prescription, written in April, has no remaining refills. She is taking Wellbutrin, which was last filled in October and will run out before her next appointment in November. Similarly, her BuSpar prescription, also filled in October, will run out before her next appointment. She is taking Carafate as needed and has one dose remaining; this prescription will in October. She is also taking vitamin D, thyroid medication, Protonix, meloxicam, and citalopram, with refills available until January and April, respectively. She has one refill remaining on her Xanax prescription, which she plans to fill soon. Nella reports that her depression is well-controlled with her current medication regimen. She is also managing her GERD symptoms with Carafate and Protonix. She has a history of back pain and is scheduled to see Dr. Fierro next week to discuss her cervical, thoracic, and lumbar spine issues. She expresses a desire to have a comprehensive evaluation of her entire spine rather than separate assessments for each region. Nella had lab work done in May, which showed a creatinine level of 1.03 and a BUN within normal limits. Her vitamin D level was elevated at that time. She had thyroid labs done in October, which were within normal limits. She denies any current symptoms suggestive of thyroid dysfunction. 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 For Anxiety and SOB related to throat/laryngospasm as directed lisinopril 2.5 mg tablet Take 2.5 mg by mouth once daily. Stopped taking routinely Thursday (08/08) and using as needed for now citalopram (CELEXA) 40 mg tablet Take 1 tablet by mouth once daily. meloxicam (MOBIC) 15 mg tablet Take 1 tablet by mouth once daily. Take with food. CPAP/BIPAP/OTHER autoCPAP 5-15 cmH2O [address] [facility] [address] (PROTONIX) 40 mg tablet Take 1 tablet by mouth two times a day. As directed levothyroxine (SYNTHROID) 50 mcg tablet Take 1 tablet by mouth once daily. Cholecalciferol, Vitamin D3, 125 mcg (5,000 unit) cap Take 1 capsule by mouth once daily. sucralfate (CARAFATE) 1 gram tablet Take 1 tablet by mouth four times daily. As directed for flare ups. May dissolve in 1 to 2 teaspoons of water then swallow. buPROPion SR (WELLBUTRIN SR) 150 mg 12 hr tablet Take 1 tablet by mouth once daily. busPIRone (BUSPAR) 15 mg tablet Take 1.5 tablets by mouth two times a day. acetaminophen (TYLENOL 8 HOUR) 650 mg CR tablet Take 2 tablets by mouth every 8 hours as needed for pain. (try this one) tiZANidine (ZANAFLEX) 4 mg tablet Take 1 tablet by mouth twice daily as needed. calcium carbonate 600 mg-cholecalciferol 200 units (CALCIUM 600 + D,3,) 600 mg(1,500mg) -200 unit tab Take 1 tablet by mouth twice daily. Calcium viactive chewable fexofenadine (ALVINA) 180 mg tablet Take 180 mg by mouth once daily. No current facility-administered medications for this visit. Review of Systems Objective BP 122/80 Pulse 78 Temp 36.5 C (97.7 F) Resp 16 Wt 67.1 kg (147 lb 14.9 oz) SpO2 100% BMI 29.38 kg/m Physical Exam Constitutional: Appearance: Normal appearance. HENT: Head: Normocephalic. Eyes: Conjunctiva/sclera: Conjunctivae normal. Cardiovascular: Rate and Rhythm: Normal rate and regular rhythm. Heart sounds: Normal heart sounds. Pulmonary: Effort: Pulmonary effort is normal. Breath sounds: Normal breath sounds. Musculoskeletal: Right lower leg: No edema. Left lower leg: No edema. Skin: General: Skin is warm and dry. Neurological: General: No focal deficit present. Mental Status: She is alert and oriented to person, place, and time. Psychiatric: Mood and Affect: Mood normal. Behavior: Behavior normal. Thought Content: Thought content normal. Judgment: Judgment normal. Latest Ref Rng 11/07/2023 03/10/2024 06/11/2024 Protein, Total 6.3 - 8.0 g/dL 6.3 6.6 6.4 Albumin 3.9 - 4.9 g/dL 4.2 4.1 4.4 Calcium 8.5 - 10.2 mg/dL 9.1 9.3 9.4 Bilirubin, Total 0.2 - 1.3 mg/dL 0.3 0.4 0.4 Alkaline Phosphatase 34 - 123 U/L 66 70 64 AST 13 - 35 U/L 15 15 16 ALT 7 - 38 U/L 9 12 11 Glucose 74 - 99 mg/dL 90 83 100 (H) BUN 7 - 21 mg/dL 9 13 11 Creatinine 0.58 - 0.96 mg/dL 0.90 1.00 (H) 1.03 (H) Sodium 136 - 144 mmol/L 139 139 139 Potassium 3.7 - 5.1 mmol/L 3.6 (L) 4.0 3.7 Chloride 98 - 107 mmol/L 101 104 103 CO2 22 - 30 mmol/L 27 23 23 Anion Gap 8 - 15 mmol/L 11 12 13 eGFR >=60 mL/min/1.73m 68 60 58 (L) WBC 3.70 - 11.00 k/uL 5.70 7.27 RBC 3.90 - 5.20 m/uL 3.97 4.12 Hemoglobin 11.5 - 15.5 g/dL 11.2 (L) 11.8 Hematocrit 36.0 - 46.0 % 36.0 38.3 MCV 80.0 - 100.0 fL 90.7 93.0 MCH 26.0 - 34.0 pg 28.2 28.6 MCHC 30.5 - 36.0 g/dL 31.1 30.8 RDW-CV 11.5 - 15.0 % 13.5 15.2 (H) Platelet Count 150 - 400 k/uL 382 439 (H) MPV 9.0 - 12.7 fL 9.8 9.7 Absolute nRBC <0.01 k/uL <0.01 <0.01 TSH 0.270 - 4.200 mIU/L 0.653 Free T4 0.9 - 1.7 ng/dL 1.4 Free T3 2.3 - 4.1 pg/mL 2.4 Vitamin D 25 Hydroxy 31.0 - 80.0 ng/mL 122.0 (H) PTH, Intact 15 - 65 pg/mL 57 Legend: (L) Low (H) High Assessment and Plan # 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 Fierro next week to discuss cervical, thoracic, and lumbar spine issues. - Advised patient to request comprehensive MRI to address all spinal concerns. - Refilled tizanidine for muscle relaxation, sent to [facility] [place] pharmacy. # Recurrent major depressive disorder, in remission (HCC) (F33.40) - Depression is well-controlled and in remission. - Refilled Wellbutrin, sent to pharmacy with instructions to fill when due and cancel prior refills. # Acquired hypothyroidism (E03.9) - Thyroid labs were completed in October; no current symptoms indicating imbalance. - Ordered thyroid function tests for next appointment. # Essential hypertension (I10) - Lisinopril use modified; patient taking as needed since 08/08. - Blood pressure remains stable. # Grief reaction (F43.21) - Condition stable. - Refilled alprazolam, sent to pharmacy with instructions to fill before next appointment. # Anxiety (F41.9) - Anxiety symptoms stable. - Refilled BuSpar, sent to pharmacy with instructions to fill when due and cancel prior refills. # Age-related osteoporosis without current pathological fracture (M81.0) - Vitamin D level was elevated in May. - Placed Vitamin D supplementation on hold for August; resume 1000 units weekly in September. - Ordered vitamin D level for next appointment. # Encounter for long-term current use of medication (Z79.899) - Refilled multiple medications including tizanidine, Wellbutrin, BuSpar, Carafate, and alprazolam. - Adjusted Vitamin D dosage. - Ordered comprehensive metabolic panel and CBC for next appointment. # Gastroesophageal reflux disease without esophagitis (K21.9) - Symptoms well-controlled. - Refilled Carafate, sent to pharmacy with instructions to fill when due and cancel prior refills. Eunice Joe MD documented in this encounter [facility] 06-28-2024 Note HNO ID: [id number] Author: EUNICE JOE MD Service: ? Author Type: Physician Type: Progress Notes Filed: 08/07/2024 17:54 Note Text: This note was created using [employer]. Subjective Nella Benítez is a 73 year old female. Patient presents with: Established Patient: Since April 2024 has had symptoms SUBJECTIVE: Nella Benítez is a 73 year old year old lady here today for appointment for review of medical conditions. Doing well on current meds for management for anxiety and grief reaction history. No acute concerns to address today. Reviewed meds--has refills on meds except for alprazolam. 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 citalopram (CELEXA) 40 mg tablet Take 1 tablet by mouth once daily. meloxicam (MOBIC) 15 mg tablet Take 1 tablet by mouth once daily. Take with food. pantoprazole DR (PROTONIX) 40 mg tablet Take 1 tablet by mouth two times a day. As directed levothyroxine (SYNTHROID) 50 mcg tablet Take 1 tablet by mouth once daily. Cholecalciferol, Vitamin D3, 125 mcg (5,000 unit) cap Take 1 capsule by mouth once daily. sucralfate (CARAFATE) 1 gram tablet Take 1 tablet by mouth four times daily. As directed for flare ups. May dissolve in 1 to 2 teaspoons of water then swallow. buPROPion SR (WELLBUTRIN SR) 150 mg 12 hr tablet Take 1 tablet by mouth once daily. busPIRone (BUSPAR) 15 mg tablet Take 1.5 tablets by mouth two times a day. acetaminophen (TYLENOL 8 HOUR) 650 mg CR tablet Take 2 tablets by mouth every 8 hours as needed for pain. (try this one) tiZANidine (ZANAFLEX) 4 mg tablet Take 1 tablet by mouth twice daily as needed. calcium carbonate 600 mg-cholecalciferol 200 units (CALCIUM 600 + D,3,) 600 mg(1,500mg) -200 unit tab Take 1 tablet by mouth twice daily. Calcium viactive chewable fexofenadine (ALVINA) 180 mg tablet Take 180 mg by mouth once daily. ALPRAZolam (XANAX) 0.5 mg tablet Take 1 tablet by mouth two times a day for 60 days. For Anxiety and SOB related to throat/laryngospasm as directed CPAP/BIPAP/OTHER autoCPAP 5-15 cmH2O DME [facility] (Patient not taking: Reported on 06/28/2024) metoprolol succinate 25 mg CSpX Take 12.5 mg by mouth once daily. (Patient not taking: Reported on 06/07/2024) No current facility-administered medications for this visit. Review of Systems Objective BP 138/88 Pulse 83 Temp 36.7 ?C (98 ?F) Resp 18 Wt 64.1 kg (141 lb 5 oz) SpO2 96% BMI 28.06 kg/m? Physical Exam Constitutional: Appearance: Normal appearance. HENT: Head: Normocephalic. Eyes: Conjunctiva/sclera: Conjunctivae normal. Cardiovascular: Rate and Rhythm: Normal rate and regular rhythm. Heart sounds: Normal heart sounds. Pulmonary: Effort: Pulmonary effort is normal. Breath sounds: Normal breath sounds. Skin: General: Skin is warm and dry. Neurological: General: No focal deficit present. Mental Status: She is alert and oriented to person, place, and time. Psychiatric: Mood and Affect: Mood normal. Behavior: Behavior normal. Thought Content: Thought content normal. Judgment: Judgment normal. Assessment and Plan ASSESSMENT/PLAN: 1. Anxiety - ICD9: 300.00, ICD10: F41.9 (primary diagnosis) Controlled with present meds. Continue present management. - ALPRAZOLAM 0.5 MG TABLET 2. Grief reaction - ICD9: 309.0, ICD10: F43.21 Stable on current meds, including citalopram. Continue present management. - ALPRAZOLAM 0.5 MG TABLET No problem-specific Assessment AND Plan notes found for this encounter. Eunice Joe MD [facility] 06-28-2024 History of Presen t illness Narrative This note was created using [employer]. Subjective Nella Benítez is a 73 year old female. Patient presents with: Established Patient: Since April 2024 has had symptoms SUBJECTIVE: Nella Benítez is a 73 year old year old lady here today for appointment for review of medical conditions. Doing well on current meds for management for anxiety and grief reaction history. No acute concerns to address today. Reviewed meds--has refills on meds except for alprazolam. 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 citalopram (CELEXA) 40 mg tablet Take 1 tablet by mouth once daily. meloxicam (MOBIC) 15 mg tablet Take 1 tablet by mouth once daily. Take with food. pantoprazole DR (PROTONIX) 40 mg tablet Take 1 tablet by mouth two times a day. As directed levothyroxine (SYNTHROID) 50 mcg tablet Take 1 tablet by mouth once daily. Cholecalciferol, Vitamin D3, 125 mcg (5,000 unit) cap Take 1 capsule by mouth once daily. sucralfate (CARAFATE) 1 gram tablet Take 1 tablet by mouth four times daily. As directed for flare ups. May dissolve in 1 to 2 teaspoons of water then swallow. buPROPion SR (WELLBUTRIN SR) 150 mg 12 hr tablet Take 1 tablet by mouth once daily. busPIRone (BUSPAR) 15 mg tablet Take 1.5 tablets by mouth two times a day. acetaminophen (TYLENOL 8 HOUR) 650 mg CR tablet Take 2 tablets by mouth every 8 hours as needed for pain. (try this one) tiZANidine (ZANAFLEX) 4 mg tablet Take 1 tablet by mouth twice daily as needed. calcium carbonate 600 mg-cholecalciferol 200 units (CALCIUM 600 + D,3,) 600 mg(1,500mg) -200 unit tab Take 1 tablet by mouth twice daily. Calcium viactive chewable fexofenadine (ALVINA) 180 mg tablet Take 180 mg by mouth once daily. ALPRAZolam (XANAX) 0.5 mg tablet Take 1 tablet by mouth two times a day for 60 days. For Anxiety and SOB related to throat/laryngospasm as directed CPAP/BIPAP/OTHER autoCPAP 5-15 cmH2O DME [facility] (Patient not taking: Reported on 06/28/2024) metoprolol succinate 25 mg CSpX Take 12.5 mg by mouth once daily. (Patient not taking: Reported on 06/07/2024) No current facility-administered medications for this visit. Review of Systems Objective BP 138/88 Pulse 83 Temp 36.7 C (98 F) Resp 18 Wt 64.1 kg (141 lb 5 oz) SpO2 96% BMI 28.06 kg/m Physical Exam Constitutional: Appearance: Normal appearance. HENT: Head: Normocephalic. Eyes: Conjunctiva/sclera: Conjunctivae normal. Cardiovascular: Rate and Rhythm: Normal rate and regular rhythm. Heart sounds: Normal heart sounds. Pulmonary: Effort: Pulmonary effort is normal. Breath sounds: Normal breath sounds. Skin: General: Skin is warm and dry. Neurological: General: No focal deficit present. Mental Status: She is alert and oriented to person, place, and time. Psychiatric: Mood and Affect: Mood normal. Behavior: Behavior normal. Thought Content: Thought content normal. Judgment: Judgment normal. Assessment and Plan ASSESSMENT/PLAN: 1. Anxiety - ICD9: 300.00, ICD10: F41.9 (primary diagnosis) Controlled with present meds. Continue present management. - ALPRAZOLAM 0.5 MG TABLET 2. Grief reaction - ICD9: 309.0, ICD10: F43.21 Stable on current meds, including citalopram. Continue present management. - ALPRAZOLAM 0.5 MG TABLET No problem-specific Assessment & Plan notes found for this encounter. Eunice Joe MD documented in this encounter [facility] 06-27-2024 Telephone encounter Note Triage Protocol Recommended: See provider within 24 hours. Pt agreeable. Appt has been made for patient for tomorrow, with PCP, per patient request. Pt aware to call 911/seek ER for red flag sx's as discussed. Reason for Disposition [1] MODERATE weakness (i.e., interferes with work, school, normal activities) AND [2] persists > 3 days Answer Assessment - Initial Assessment Questions Patient calling with concern for lack of motivation, fatigue, loss of interest in some things, as well as trouble with word finding at times. 1. DESCRIPTION: as above 2. SEVERITY:mild to moderate 3. ONSET: within the last 2 weeks 4. CAUSE:Pt curious if may be related to changing from Xanax to Ativan this month, or from recent covid 5. NEW MEDICINES: yes, as previous 6. OTHER SYMPTOMS: Denies chest pain, fever, cough, worsening SOB, weakness on one side of body, slurred speech, forgetfulness, vision or hearing problems, N/V/D, bleeding, or pain Protocols used: Weakness (Generalized) and [id number] [facility] 06-27-2024 Miscellaneous Notes Triage Protocol Recommended: See provider within 24 hours. Pt agreeable. Appt has been made for patient for tomorrow, with PCP, per patient request. Pt aware to call 911/seek ER for red flag sx's as discussed. Reason for Disposition [1] MODERATE weakness (i.e., interferes with work, school, normal activities) AND [2] persists > 3 days Answer Assessment - Initial Assessment Questions Patient calling with concern for lack of motivation, fatigue, loss of interest in some things, as well as trouble with word finding at times. 1. DESCRIPTION: as above 2. SEVERITY:mild to moderate 3. ONSET: within the last 2 weeks 4. CAUSE:Pt curious if may be related to changing from Xanax to Ativan this month, or from recent covid 5. NEW MEDICINES: yes, as previous 6. OTHER SYMPTOMS: Denies chest pain, fever, cough, worsening SOB, weakness on one side of body, slurred speech, forgetfulness, vision or hearing problems, N/V/D, bleeding, or pain Protocols used: Weakness (Generalized) and [id number] documented in this encounter [facility] 06-14-2024 Telephone encounter Note PDMP website checked and validated. All prescriptions have been APPROPRIATELY filled. No suspicious activity was identified. 06/14/2024 by Abner Denny APRN.CNP [facility] 06-14-2024 Miscellaneous Notes PDMP website checked and validated. All prescriptions have been APPROPRIATELY filled. No suspicious activity was identified. 06/14/2024 by Abner Denny APRN.CNP Patient has been identified by name and date of : Yes Patient phones for refill(s): Requested Prescriptions Pending Prescriptions Disp Refills LORazepam (ATIVAN) 1 mg tablet 40 tablet 0 Sig: Take 1 tablet by mouth daily at bedtime. May also take 1 tablet once daily as needed for anxiety. Do all this for 30 days. (documentation that RX filled in April; tried to send another RX for 2 more months but denied at pharmacy). Date of last office visit in primary care: 06/07/2024 Date of next office visit in primary care: 08/10/2024 Please advise. Thank you. Luz Rodriguez LPN. documented in this encounter [facility] 06-14-2024 Telephone encounter Note Patient has been identified by name and date of : Yes Patient phones for refill(s): Requested Prescriptions Pending Prescriptions Disp Refills LORazepam (ATIVAN) 1 mg tablet 40 tablet 0 Sig: Take 1 tablet by mouth daily at bedtime. May also take 1 tablet once daily as needed for anxiety. Do all this for 30 days. (documentation that RX filled in April; tried to send another RX for 2 more months but denied at pharmacy). Date of last office visit in primary care: 06/07/2024 Date of next office visit in primary care: 08/10/2024 Please advise. Thank you. Luz Rodriguez LPN. [facility] 06-07-2024 Note HNO ID: [id number] Author: ABNER DENNY APRN.[employer]ICIAN Service: ? Author Type: Nurse Practitioner Type: Progress Notes Filed: 06/07/2024 13:17 Note Text: SUBJECTIVE Nella Benítez is a 73 year old female here today for acute problems. Chief Complaint Patient presents with: Sore Throat: 4-5 weeks has noticed blisters in mouth has noticed post nasal drip and feels nauseated. 04/30/24 did test + for COVID as of today is testing negative. Continues with body aches and headaches HPI Nella Benítez is a 73 year old female. She is an established patient of Eunice Joe MD. Here today for concerns of not feeling well. Has had symptoms of sore throat for 4-5 weeks, post-nasal drip, nausea, body aches and headaches. She had a positive home COVID test 04/30, tested today and is negative but just not feeling well. Symptoms have never fully resolved from being sick in April. Had tooth extracted 03/29, was on Augmentin. Traveled on 04/18 to [place]. Took a zpack for COVID pneumonia. Her medications were reviewed today and her list is now up to date. Medications Current Outpatient Medications Medication Sig lisinopril 2.5 mg tablet Take 2.5 mg by mouth once daily. LORazepam (ATIVAN) 1 mg tablet Take 1 tablet by mouth daily at bedtime. May also take 1 tablet once daily as needed for anxiety. Do all this for 30 days. (documentation that RX filled in April; tried to send another RX for 2 more months but denied at pharmacy). citalopram (CELEXA) 40 mg tablet Take 1 tablet by mouth once daily. meloxicam (MOBIC) 15 mg tablet Take 1 tablet by mouth once daily. Take with food. pantoprazole DR (PROTONIX) 40 mg tablet Take 1 tablet by mouth two times a day. As directed levothyroxine (SYNTHROID) 50 mcg tablet Take 1 tablet by mouth once daily. Cholecalciferol, Vitamin D3, 125 mcg (5,000 unit) cap Take 1 capsule by mouth once daily. sucralfate (CARAFATE) 1 gram tablet Take 1 tablet by mouth four times daily. As directed for flare ups. May dissolve in 1 to 2 teaspoons of water then swallow. buPROPion SR (WELLBUTRIN SR) 150 mg 12 hr tablet Take 1 tablet by mouth once daily. busPIRone (BUSPAR) 15 mg tablet Take 1.5 tablets by mouth two times a day. acetaminophen (TYLENOL 8 HOUR) 650 mg CR tablet Take 2 tablets by mouth every 8 hours as needed for pain. (try this one) tiZANidine (ZANAFLEX) 4 mg tablet Take 1 tablet by mouth twice daily as needed. calcium carbonate 600 mg-cholecalciferol 200 units (CALCIUM 600 + D,3,) 600 mg(1,500mg) -200 unit tab Take 1 tablet by mouth twice daily. Calcium viactive chewable fexofenadine (ALVINA) 180 mg tablet Take 180 mg by mouth once daily. doxycycline (VIBRA-TABS) 100 mg tablet Take 1 tablet by mouth two times a day for 10 days. CPAP/BIPAP/OTHER autoCPAP 5-15 cmH2O DME [facility] metoprolol succinate 25 mg CSpX Take 12.5 mg by mouth once daily. (Patient not taking: Reported on 06/07/2024) No current facility-administered medications for this visit. ALLERGIES Allergen Reactions Latex Rash, Itching Actonel [Risedronat* GI Upset Fosamax [Alendronat* GI Upset ACTIVE PROBLEM LIST Chintan (Obstructive Sleep Apnea) - 03/25/2024 Stage 3a Chronic Kidney Disease ([facility]) - 02/04/2023 Paroxysmal Svt (Supraventricular Tachycardia) ([facility]) - 02/04/2023 Essential Hypertension - 09/14/2021 Comment: Higher than usual today--attributed to persistent severe pain from comrpression fractures. 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 Hypothyroidism - 08/31/2013 Si (Sacroiliac) Joint Dysfunction - 11/03/2011 Diarrhea - 01/02/2010 Diverticulosis of Colon (Without Mention of Hemorrhage) - 01/02/2010 Internal Hemorrhoids Without Mention of Complication - 01/02/2010 External Hemorrhoids Without Mention of Complication - 01/02/2010 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 Spouse non-smoker. Vaping Use Vaping status: Never Used Substance Use Topics Alcohol use: Yes Comment: Occasional, once or twice per month. Drug use: No Review of Systems HENT: Positive for postnasal drip and sore throat. Respiratory: Negative for cough, chest tightness and wheezing. (more content not included)... [facility] 06-07-2024 History of Presen t illness Narrative SUBJECTIVE Nella Benítez is a 73 year old female here today for acute problems. Chief Complaint Patient presents with: Sore Throat: 4-5 weeks has noticed blisters in mouth has noticed post nasal drip and feels nauseated. 04/30/24 did test + for COVID as of today is testing negative. Continues with body aches and headaches HPI Nella Benítez is a 73 year old female. She is an established patient of Eunice Joe MD. Here today for concerns of not feeling well. Has had symptoms of sore throat for 4-5 weeks, post-nasal drip, nausea, body aches and headaches. She had a positive home COVID test 04/30, tested today and is negative but just not feeling well. Symptoms have never fully resolved from being sick in April. Had tooth extracted 03/29, was on Augmentin. Traveled on 04/18 to [place]. Took a zpack for COVID pneumonia. Her medications were reviewed today and her list is now up to date. Medications Current Outpatient Medications Medication Sig lisinopril 2.5 mg tablet Take 2.5 mg by mouth once daily. LORazepam (ATIVAN) 1 mg tablet Take 1 tablet by mouth daily at bedtime. May also take 1 tablet once daily as needed for anxiety. Do all this for 30 days. (documentation that RX filled in April; tried to send another RX for 2 more months but denied at pharmacy). citalopram (CELEXA) 40 mg tablet Take 1 tablet by mouth once daily. meloxicam (MOBIC) 15 mg tablet Take 1 tablet by mouth once daily. Take with food. pantoprazole DR (PROTONIX) 40 mg tablet Take 1 tablet by mouth two times a day. As directed levothyroxine (SYNTHROID) 50 mcg tablet Take 1 tablet by mouth once daily. Cholecalciferol, Vitamin D3, 125 mcg (5,000 unit) cap Take 1 capsule by mouth once daily. sucralfate (CARAFATE) 1 gram tablet Take 1 tablet by mouth four times daily. As directed for flare ups. May dissolve in 1 to 2 teaspoons of water then swallow. buPROPion SR (WELLBUTRIN SR) 150 mg 12 hr tablet Take 1 tablet by mouth once daily. busPIRone (BUSPAR) 15 mg tablet Take 1.5 tablets by mouth two times a day. acetaminophen (TYLENOL 8 HOUR) 650 mg CR tablet Take 2 tablets by mouth every 8 hours as needed for pain. (try this one) tiZANidine (ZANAFLEX) 4 mg tablet Take 1 tablet by mouth twice daily as needed. calcium carbonate 600 mg-cholecalciferol 200 units (CALCIUM 600 + D,3,) 600 mg(1,500mg) -200 unit tab Take 1 tablet by mouth twice daily. Calcium viactive chewable fexofenadine (ALVINA) 180 mg tablet Take 180 mg by mouth once daily. doxycycline (VIBRA-TABS) 100 mg tablet Take 1 tablet by mouth two times a day for 10 days. CPAP/BIPAP/OTHER autoCPAP 5-15 cmH2O DME [facility] metoprolol succinate 25 mg CSpX Take 12.5 mg by mouth once daily. (Patient not taking: Reported on 06/07/2024) No current facility-administered medications for this visit. ALLERGIES Allergen Reactions Latex Rash, Itching Actonel [Risedronat* GI Upset Fosamax [Alendronat* GI Upset ACTIVE PROBLEM LIST Chintan (Obstructive Sleep Apnea) - 03/25/2024 Stage 3a Chronic Kidney Disease ([facility]) - 02/04/2023 Paroxysmal Svt (Supraventricular Tachycardia) ([facility]) - 02/04/2023 Essential Hypertension - 09/14/2021 Comment: Higher than usual today--attributed to persistent severe pain from comrpression fractures. 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 Hypothyroidism - 08/31/2013 Si (Sacroiliac) Joint Dysfunction - 11/03/2011 Diarrhea - 01/02/2010 Diverticulosis of Colon (Without Mention of Hemorrhage) - 01/02/2010 Internal Hemorrhoids Without Mention of Complication - 01/02/2010 External Hemorrhoids Without Mention of Complication - 01/02/2010 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 Spouse non-smoker. Vaping Use Vaping status: Never Used Substance Use Topics Alcohol use: Yes Comment: Occasional, once or twice per month. Drug use: No Review of Systems HENT: Positive for postnasal drip and sore throat. Respiratory: Negative for cough, chest tightness and wheezing. Cardiovascular: Negative. Gastrointestinal: Positive for nausea. OBJECTIVE BP 150/92 Pulse 87 Wt 141 lb 8.6 oz (64.2kg) SpO2 97% Physical Exam Vitals and nursing note reviewed. Constitutional: General: She is awake. She is not in acute distress. Appearance: Normal appearance. She is well-developed and well-groomed. She is not ill-appearing, toxic-appearing or diaphoretic. HENT: Head: Normocephalic. Right Ear: External ear normal. Left Ear: External ear normal. Nose: Nose normal. Mouth/Throat: Mouth: Mucous membranes are moist. Pharynx: Posterior oropharyngeal erythema present. Eyes: General: Vision grossly intact. Conjunctiva/sclera: Conjunctivae normal. Pupils: Pupils are equal, round, and reactive to light. Neck: Vascular: No JVD. Trachea: Trachea normal. Cardiovascular: Rate and Rhythm: Normal rate and regular rhythm. Pulses: Normal pulses. Heart sounds: Normal heart sounds. No murmur heard. Pulmonary: Effort: Pulmonary effort is normal. No accessory muscle usage, prolonged expiration or respiratory distress. Breath sounds: Normal breath sounds. Musculoskeletal: Cervical back: Neck supple. Lymphadenopathy: Cervical: Cervical adenopathy present. Right cervical: Superficial cervical adenopathy present. Left cervical: Superficial cervical adenopathy present. Skin: General: Skin is warm and dry. Capillary Refill: Capillary refill takes less than 2 seconds. Neurological: General: No focal deficit present. Mental Status: She is alert and oriented to person, place, and time. Mental status is at baseline. Psychiatric: Attention and Perception: Attention and perception normal. Mood and Affect: Mood and affect normal. Speech: Speech normal. Behavior: Behavior normal. Behavior is cooperative. Thought Content: Thought content normal. Cognition and Memory: Cognition and memory normal. Judgment: Judgment normal. ASSESSMENT/PLAN: 1. Sinobronchitis - ICD9: 473.9, 490, ICD10: J32.9, J40 (primary diagnosis) - Will begin treatment with as per antibiotic as written, see orders - The patient should also be given OTC cough and cold meds as needed, warm salt water gargles, throat lozenges and/or OTC throat spray as needed, and nasal saline gtts and suction prn for the first 5-7 days of treatment. - Supportive care with plenty of fluids, rest, and analgesia prn. - Follow up in 3-5 days if symptoms persist or worsen. - DOXYCYCLINE HYCLATE 100 MG TABLET 2. History of COVID-19 - ICD9: V12.09, ICD10: Z86.16 Suspect post-COVID bacterial infection. See #1 Portions of this note have been entered by ancillary staff. I have reviewed and when necessary edited, so that they are an adequate record of my encounter with this patient Please note that parts of this document were created using voice recognition software and therefore may contain grammatical errors. Patient verbalizes understanding of instructions from today's visit and in agreement with treatment plan. Questions answered. Agrees to call the office if questions, concerns of issues with acute symptoms not improving or if they worsen. See diagnoses and orders for additional plan(s). Allergies and medications were reviewed, list was updated, and refills given if needed. Past medical, surgical, social, and family history reviewed and updated as appropriate. Encouraged proper diet & exercise as well as compliance with taking medications. Age-appropriate health preventative measures were discussed. Return if symptoms worsen or fail to improve, for Keep next scheduled appointment.. Abner Denny APRN-ISABELLA documented in this encounter [facility] 05-19-2024 Telephone encounter Note Prescription Refill Information The patient has been identified by name and date of : Yes Caregiver verified no other encounters exist for this prescription request: Yes Caregiver confirmed with patient/requestor that no other refills are due, in the near future, with this provider at this time: Yes The last office visit in the department: 03/16/24 Does the patient have a future office visit with this provider/department: Yes Requested Prescriptions Pending Prescriptions Disp Refills LORazepam (ATIVAN) 1 mg tablet 40 tablet 0 Sig: Take 1 tablet by mouth daily at bedtime. May also take 1 tablet once daily as needed for anxiety. Do all this for 30 days. (documentation that RX filled in April; tried to send another RX for 2 more months but denied at pharmacy). Patricia Boo LPN May 19, 2024 9:48 AM [facility] 05-19-2024 Miscellaneous Notes Prescription Refill Information The patient has been identified by name and date of : Yes Caregiver verified no other encounters exist for this prescription request: Yes Caregiver confirmed with patient/requestor that no other refills are due, in the near future, with this provider at this time: Yes The last office visit in the department: 03/16/24 Does the patient have a future office visit with this provider/department: Yes Requested Prescriptions Pending Prescriptions Disp Refills LORazepam (ATIVAN) 1 mg tablet 40 tablet 0 Sig: Take 1 tablet by mouth daily at bedtime. May also take 1 tablet once daily as needed for anxiety. Do all this for 30 days. (documentation that RX filled in April; tried to send another RX for 2 more months but denied at pharmacy). Patricia Boo LPN May 19, 2024 9:48 AM documented in this encounter [facility] 04-18-2024 Telephone encounter Note Addressed in previous encounter. [facility] 04-18-2024 Miscellaneous Notes Addressed in previous encounter. documented in this encounter [facility] 04-18-2024 Telephone encounter Note The following approved medication requests have been transmitted electronically. Requested Prescriptions Signed Prescriptions Disp Refills citalopram (CELEXA) 40 mg tablet 90 tablet 3 Sig: Take 1 tablet by mouth once daily. Authorizing Provider: EUNICE JOE MD [facility] 04-18-2024 Miscellaneous Notes The following approved medication requests have been transmitted electronically. Requested Prescriptions Signed Prescriptions Disp Refills citalopram (CELEXA) 40 mg tablet 90 tablet 3 Sig: Take 1 tablet by mouth once daily. Authorizing Provider: EUNICE JOE MD Patient reports she needs medication sent to [facility] in [place] by 10 am today. Reports they are leaving at 10 am for a 2 mth trip out west. Last ov: 03-16-24 Next ov: 08-10-24 documented in this encounter [facility] 04-18-2024 Telephone encounter Note Patient reports she needs medication sent to [facility] in [place] by 10 am today. Reports they are leaving at 10 am for a 2 mth trip out west. Last ov: 03-16-24 Next ov: 08-10-24 [facility] 04-15-2024 Telephone encounter Note Patient aware to contact PCP office when needing the new RX for the Lorazepam. Aware will also need with the pharmacy information where the RX to be sent. Evelin Epstein LPN [facility] 04-15-2024 Miscellaneous Notes Patient aware to contact PCP office when needing the new RX for the Lorazepam. Aware will also need with the pharmacy information where the RX to be sent. Evelin Epstein LPN If pharmacist is sure that patient can fill RX out of state, fine--I can send to out of state pharmacy. Just in case there might be an issue, does patient have a friend who could pick up attendant a local RX and mail to her if needed? This is just to have a back up plan. Canceling the 80 pill RX Had to add back the other RX that had been filled since it was used for ordering the additional meds and got canceled off medlist. Spoke with Louis/Pharmacist at [facility]. Pharmacist stated would not be able to fill the other 80 tablet RX. The best way to address is to cancel that RX, and when the next RX due, the 80 tablets, to then send the new RX out to where pt is at that time. Evelin Epstein LPN [place]--did not see the request for 90 days supply and filled what was pended. Sent balance of 3 month supply with notes to pharmacy. Might need to call to explain The following approved medication requests have been transmitted electronically. Requested Prescriptions Signed Prescriptions Disp Refills LORazepam (ATIVAN) 1 mg tablet 80 tablet 0 Sig: Take 1 tablet by mouth daily at bedtime. May also take 1 tablet once daily as needed for anxiety. Do all this for 90 days. Please fill this prescription before Thursday; patient will be out of state the next couple months so needs to bring med. Authorizing Provider: EUNICE JOE MD Patient calls in to say she picked up the prescription at [facility] and it only has 40 pills. She reports that she is traveling out west, leaving on Thursday and will be gone for atleast 2 months which is why she was requesting the 3 month supply. Patient asking if another prescription can be sent to [facility] for lorazepam to get her through until she returns. Please review and advise, Patsy Amaya RN The following approved medication requests have been transmitted electronically. Requested Prescriptions Signed Prescriptions Disp Refills LORazepam (ATIVAN) 1 mg tablet 40 tablet 0 Sig: Take 1 tablet by mouth daily at bedtime. May also take 1 tablet once daily as needed for anxiety. Do all this for 30 days. Authorizing Provider: EUNICE JOE MD Patient is requesting a 3 month supply Prescription Refill Information The patient has been identified by name and date of : Yes Caregiver verified no other encounters exist for this prescription request: Yes Caregiver confirmed with patient/requestor that no other refills are due, in the near future, with this provider at this time: Yes The last office visit in the department: 03/16/24 Does the patient have a future office visit with this provider/department: Yes 08/10/24 Requested Prescriptions Pending Prescriptions Disp Refills LORazepam (ATIVAN) 1 mg tablet 40 tablet 0 Sig: Take 1 tablet by mouth daily at bedtime. May also take 1 tablet once daily as needed for anxiety. Do all this for 30 days. Cynthia Alanis LPN April 11, 2024 4:27 PM documented in this encounter [facility] 04-15-2024 Telephone encounter Note If pharmacist is sure that patient can fill RX out of state, fine--I can send to out of state pharmacy. Just in case there might be an issue, does patient have a friend who could pick up attendant a local RX and mail to her if needed? This is just to have a back up plan. Canceling the 80 pill RX Had to add back the other RX that had been filled since it was used for ordering the additional meds and got canceled off medlist. [facility] 04-15-2024 Telephone encounter Note Spoke with Louis/Pharmacist at [facility]. Pharmacist stated would not be able to fill the other 80 tablet RX. The best way to address is to cancel that RX, and when the next RX due, the 80 tablets, to then send the new RX out to where pt is at that time. Evelin Epstein LPN [facility] 04-15-2024 Telephone encounter Note Sorry--did not see the request for 90 days supply and filled what was pended. Sent balance of 3 month supply with notes to pharmacy. Might need to call to explain The following approved medication requests have been transmitted electronically. Requested Prescriptions Signed Prescriptions Disp Refills LORazepam (ATIVAN) 1 mg tablet 80 tablet 0 Sig: Take 1 tablet by mouth daily at bedtime. May also take 1 tablet once daily as needed for anxiety. Do all this for 90 days. Please fill this prescription before Thursday; patient will be out of state the next couple months so needs to bring med. Authorizing Provider: EUNICE JOE MD [facility] 04-15-2024 Telephone encounter Note Patient calls in to say she picked up the prescription at [facility] and it only has 40 pills. She reports that she is traveling out west, leaving on Thursday and will be gone for atleast 2 months which is why she was requesting the 3 month supply. Patient asking if another prescription can be sent to [facility] for lorazepam to get her through until she returns. Please review and advise, Patsy Amaya RN [facility] 04-11-2024 Telephone encounter Note The following approved medication requests have been transmitted electronically. Requested Prescriptions Signed Prescriptions Disp Refills LORazepam (ATIVAN) 1 mg tablet 40 tablet 0 Sig: Take 1 tablet by mouth daily at bedtime. May also take 1 tablet once daily as needed for anxiety. Do all this for 30 days. Authorizing Provider: EUNICE JOE MD [facility] 04-11-2024 Telephone encounter Note Patient is requesting a 3 month supply Prescription Refill Information The patient has been identified by name and date of : Yes Caregiver verified no other encounters exist for this prescription request: Yes Caregiver confirmed with patient/requestor that no other refills are due, in the near future, with this provider at this time: Yes The last office visit in the department: 03/16/24 Does the patient have a future office visit with this provider/department: Yes 08/10/24 Requested Prescriptions Pending Prescriptions Disp Refills LORazepam (ATIVAN) 1 mg tablet 40 tablet 0 Sig: Take 1 tablet by mouth daily at bedtime. May also take 1 tablet once daily as needed for anxiety. Do all this for 30 days. Cynthia Alanis LPN April 11, 2024 4:27 PM [facility] 04-11-2024 Miscellaneous Notes Prescription Refill Information The patient has been identified by name and date of : Yes Caregiver verified no other encounters exist for this prescription request: Yes Caregiver confirmed with patient/requestor that no other refills are due, in the near future, with this provider at this time: Yes The last office visit in the department: 03/16/24 Does the patient have a future office visit with this provider/department: Yes 08/10/24 Requested Prescriptions Pending Prescriptions Disp Refills meloxicam (MOBIC) 15 mg tablet 90 tablet 3 Sig: Take 1 tablet by mouth once daily. Take with food. Cynthia Alanis LPN April 11, 2024 4:26 PM documented in this encounter [facility] 04-11-2024 Telephone encounter Note Prescription Refill Information The patient has been identified by name and date of : Yes Caregiver verified no other encounters exist for this prescription request: Yes Caregiver confirmed with patient/requestor that no other refills are due, in the near future, with this provider at this time: Yes The last office visit in the department: 03/16/24 Does the patient have a future office visit with this provider/department: Yes 08/10/24 Requested Prescriptions Pending Prescriptions Disp Refills meloxicam (MOBIC) 15 mg tablet 90 tablet 3 Sig: Take 1 tablet by mouth once daily. Take with food. Cynthia Alanis LPN April 11, 2024 4:26 PM [facility] 03-25-2024 Ruth Portillo APRN.[facility] - 03/25/2024 11:16 AM EDT Images from the original note were not included. Sleep Apnea What is sleep apnea? Sleep apnea is a serious sleep disorder that occurs when a person s breathing is interrupted during sleep. People with untreated sleep apnea stop breathing repeatedly during their sleep, sometimes hundreds of times during the night. There are two types of sleep apnea: obstructive and central. Obstructive sleep apnea (CHINTAN) is the more common of the two. Obstructive sleep apnea occurs as repetitive episodes of complete or partial upper airway blockage during sleep. During an apnea episode, the diaphragm and chest muscles work harder as the pressure increases to open the airway. Breathing usually resumes with a loud gasp or body jerk. These episodes can interfere with sound sleep, reduce the flow of oxygen to vital organs, and cause heart rhythm irregularities. In central sleep apnea (CSA), the airway is not blocked but the brain fails to signal the muscles to breathe due to instability in the respiratory control center. Central apnea is named as such because it is related to the function of the central nervous system. Who gets sleep apnea? Sleep apnea occurs in about 25 percent of men and nearly 10 percent of women. Sleep apnea can affect people of all ages, including babies and children and particularly people over the age of forty and those who are overweight. Certain physical traits and clinical features are common in patients with obstructive sleep apnea. These include excessive weight, large neck, and structural abnormalities reducing the diameter of the upper airway, such as nasal obstruction, a low-hanging soft palate, enlarged tonsils, or a small jaw with an overbite. The figures below illustrate the upper airway in normal sleep: (A) person is lying on back, face up, and (B) in obstructive sleep apnea. The arrows indicate complete obstruction in the back of the throat. Normal (A) Sleep apnea (B): What causes sleep apnea? Obstructive sleep apnea is caused by a blockage of the airway, usually when the soft tissues in the rear of the throat collapse during sleep. Central sleep apnea is usually observed in patients with central nervous system dysfunction, such as following a stroke or in patients with neuromuscular diseases like amyotrophic lateral sclerosis. It is also common in patients with heart failure and other forms of cardiac and pulmonary disease. What are the symptoms of sleep apnea? Often the first signs of obstructive sleep apnea are recognized not by the patient, but by the bed partner. Many of those affected have no sleep complaints. The most common symptoms of CHINTAN include: Snoring Daytime sleepiness or fatigue Restlessness during sleep Sudden awakenings with a sensation of gasping or choking Dry mouth or sore throat upon awakening Intellectual impairment, such as trouble concentrating, forgetfulness, or irritability Night sweats Sexual dysfunction Headaches People with central sleep apnea more often report recurrent awakenings or insomnia, although they may also experience a choking or gasping sensation with sudden awakenings. Symptoms in children may not be as obvious and include: Poor school performance Sluggishness or sleepiness, often misinterpreted as laziness in the classroom Daytime mouth breathing and swallowing difficulty Inward movement of the ribcage when inhaling Unusual sleeping positions, such as sleeping on the hands and knees, or with the neck hyper-extended Excessive sweating at night Learning and behavioral disorders Bedwetting What are the effects of sleep apnea? If left untreated, sleep apnea can result in a number of health problems including hypertension, stroke, arrhythmias, cardiomyopathy (enlargement of the muscle tissue of the heart), congestive heart failure, diabetes, and heart attacks. In addition, untreated sleep apnea may be responsible for job impairment, work-related accidents, and motor vehicle crashes as well as academic underachievement. How is sleep apnea diagnosed? The diagnosis of sleep apnea is relatively straightforward, based on sleep history and an overnight sleep study called a polysomnogram. Polysomnogram is performed in a sleep laboratory under the direct supervision of a trained technologist. During the test, a variety of body functions, such as the electrical activity of the brain, eye movements, muscle activity, heart rate, breathing patterns, air flow, and blood oxygen levels are recorded at night during sleep. After the study is completed, the number of times breathing is impaired during sleep is tallied and the severity of sleep apnea is graded. In some cases, a multiple sleep latency test is performed on the day after the overnight test to measure the speed of falling asleep. In this test, patients are given several opportunities to fall asleep during the course of a day when they normally would be awake. If you have symptoms of sleep apnea, your doctor may ask you to have a sleep evaluation in a sleep disorder center. What are the treatments for sleep apnea? Conservative treatments: In mild cases of sleep apnea, conservative therapy may be all that is needed. Overweight persons can benefit from losing weight. Even a ten percent weight loss can reduce the number of apneic events for most patients. Individuals with apnea should avoid the use of alcohol and sleeping pills, which make the airway more likely to collapse during sleep and prolong the apneic periods. In some patients with mild sleep apnea, breathing pauses occur only when they sleep on their backs. In such cases, using pillows and other devices that help them sleep in a side position may be helpful. People with sinus problems or nasal congestion (such people are more likely to experience sleep apnea) should use nasal sprays or breathing strips to reduce snoring and improve airflow for more comfortable nighttime breathing. Avoiding sleep deprivation is important for all patients with sleep disorders. Mechanical therapy: Continuous Positive Airway Pressure (CPAP) is the preferred initial treatment for most people with obstructive sleep apnea. With CPAP, patients wear a mask over their nose and/or mouth. An air blower forces air through the nose and/or mouth. The air pressure is adjusted so that it is just enough to prevent the upper airway tissues from collapsing during sleep. The pressure is constant and continuous. CPAP prevents airway closure while in use, but apnea episodes return when CPAP is stopped or it is used improperly. Other styles and types of positive airway pressure devices are available for people who have difficulty tolerating CPAP. These include Bilevel Positive Airway Pressure (BiPAP), Auto Positive Airway Pressure (AutoPAP), Auto/Adaptive Servo-Ventilation (ASV), etc Oral appliances: For patients with mild/moderate sleep apnea, dental appliances or oral mandibular advancement devices that prevent the tongue from blocking the throat and/or advance the lower jaw forward can be made. These devices help keep the airway open during sleep. A sleep specialist and security technician (with expertise in oral appliances for this purpose) should jointly determine if this treatment is best for you. Surgery: Surgical procedures may help people with sleep apnea. There are many types of surgical procedures, some of which are performed as outpatient procedures. Surgery is reserved for people who have excessive or malformed tissue obstructing airflow through the nose or throat, such as a deviated nasal septum, markedly enlarged tonsils, or small lower jaw with an overbite that causes the throat to be abnormally narrow. These procedures are typically performed after sleep apnea has failed to respond to conservative measures and a trial of positive airway pressure treatment. Types of surgery include: Somnoplasty: A minimally invasive procedure that uses radiofrequency energy to reduce the soft tissue in the upper airway. Uvulopalatopharyngoplasty (UPPP): A procedure that removes soft tissue on the back of the throat and palate, increasing the width of the airway at the throat opening. Maxillary/Mandibular advancement surgery: A surgical correction of certain facial abnormalities or throat obstructions that contribute to sleep apnea. This is an invasive procedure that is reserved for patients with severe sleep apnea with head-face abnormalities. Nasal surgery: Correction of nasal obstructions, such as a deviated septum. Hypoglossal nerve stimulator: FDA approved 2013. (Implant that sends a lead that goes to bottom of tongue to stimulate it forward out of the area of the back of the throat) Resources: The [facility] Guide to Sleep Disorders by Bren Nixon DO [employer] [address] [facility] [phone] [email or web address] [employer] [address] [place] [address], [address] [place] [address] [email or web address] [email or web address] Therapy Initiation - Will start Auto CPAP 5-15 cmH2O - I will have a prescription sent to a [employer] - [employer] who will be calling you in the next 1-2 weeks or so. Please call them directly or us if you do not hear from them in this time frame. - You should be eligible for new supplies approximately every 3-6 months, depending on your insurance coverage. - If your mask doesn't fit well, call the [employer] company before 30 days are up to get a new mask without an additional charge. - Insurance requires regular usage and periodic office follow ups for PAP therapy, to continue to cover supplies. - Follow up in 3 months in the office. Recommend scheduling this appointment now to ensure the best time for you. About Your PAP Therapy Continuous Positive Airway Pressure/Bilevel Therapy You have been prescribed Positive Airway Pressure (PAP) therapy to treat sleep apnea. The most common type of sleep apnea is obstructive sleep apnea (CHINTAN), a condition in which the upper airway collapses during sleep. This obstruction keeps air from getting into your lungs. The prescribed PAP machine (CPAP or Bilevel or ASV) will smoothly blow air into your airway to prevent it from closing. The machine will use a mask to deliver the air through your nose and/or mouth. These devices are available in various sizes and styles. It will take some time for you to get used to the new equipment and it may take a while for you to begin to feel the benefits of PAP therapy. Please be patient. If you are having problems adjusting to your machine, please contact us for help. Beginning your PAP Therapy Assembly: Place your PAP machine on a level surface near your bed. To prevent injury, do not place the machine higher than your head. Keep the machine at least 12 inches away from anything that may block the vents. Plug the machine into a properly grounded electrical outlet. It is better to avoid using an extension cord. If necessary, use a heavy-duty one. If you are NOT using a humidifier with you PAP equipment: Attach one end of your 6-foot tubing to the PAP unit outlet and the other end to your mask. (If your mask does not have a built-in exhalation port, a special exhalation valve should be used between the mask and the 6-foot tubing.) Attach the headgear to your mask. If you are using a humidifier with your PAP equipment: Fill the humidifier with DISTILLED water to the maximum fill line. Attach the humidifier to the PAP unit s outlet as instructed by the respiratory therapist with your home care company. Attach one end of your 6-foot tubing to the humidifier outlet and the other end to your mask. (If your mask does not have a built-in exhalation port, a special exhalation valve should be used between the mask and the 6-foot tubing.) If you have been prescribed oxygen to be used with the PAP machine, you will be instructed on how to attach your oxygen tubing. Always turn off the oxygen tank before turning off your PAP machine. Getting Started: Wash your face and apply the mask and headgear as instructed by the nanotechnologist or respiratory therapist. The mask should fit snugly to prevent air leaks, but not so tight as to cause skin irritation or discomfort. Turn the PAP power switch to the ON position. You should feel air blowing through the mask. Breathe normally and adjust the mask gently if you feel an air leak. If there are no leaks, activate the ramp feature on your PAP machine. The ramp allows a lower pressure to be delivered for a designated period of time (usually 5 to 45 minutes) to allow you to relax and fall asleep more easily. The pressure will then gradually increase to the prescribed pressure that controls your apnea. Remember to turn OFF your PAP unit when it is not in use. Care and Maintenance Headgear should be washed as needed. Daily inspection and weekly washings are recommended. Do not disassemble the straps. Machine wash in warm water, making sure to attach Velcro hooks and tabs before washing. Line dry or machine dry on a low setting. Masks should be washed every other day. Daily inspection is recommended. Leave the mask and tubing attached. Gently wash the mask with a soft cloth using warm water and mild detergent, concentrating on the mask cushion flaps. DO NOT use alcohol or bleach. Rinse thoroughly and air dry. Tubing should be washed every other day. Daily inspection is recommended. Wash in warm water and mild detergent and rinse thoroughly. Hook the tubing to the machine and blow until dry. Humidifier should be washed daily and filled with DISTILLED water before use. Wash with warm water and mild detergent. Disinfect weekly by soaking with a solution of 1 part white vinegar and 3 parts water for 30 minutes. Rinse thoroughly and air dry. Disposable filters should be replaced once a month. Wash reusable foam filters with warm water and mild detergent at least once a month. Rinse thoroughly and dry with paper towels. Avoid outdoor adventure leader that contain fragrance or conditioners, as these will leave a residue. NEVER iron any soft goods. Troubleshooting If the machine fails to turn on: Make sure that the PAP machine is plugged into a grounded outlet. Make sure that the ON/OFF switch is in the ON position. Make sure that the wall outlet has power. If there is no pressure coming from your machine: Make sure that the inlet filter is clean and unblocked. Make sure that the cooling fan is unblocked and that air is flowing freely. Make sure that all tubing is securely connected. If your PAP machine still fails to operate, please call [phone] or your home care company for assistance. What You Should Know About Insurance There are many different insurance policies and coverage for PAP equipment will vary. Find out what your coverage provides and what your responsibilities are as a consumer. PAP therapy equipment is considered Durable Medical Equipment (DME). Here are a few questions to ask your insurance provider. What benefits do I have for DME? Do I have a deductible and/or co pay for DME? Is there a repair or replacement plan for durable medical equipment? How often can I receive a replacement mask, tubing, headgear and filters? Do I have to demonstrate that I am using my PAP device? How do I do that? Important Information It is very important to keep your PAP equipment and supplies clean. The life of the supplies depends on the care they receive. Under normal circumstances, expect the mask and headgear to last 9-12 months. Refer to the professor of surgery s manual for more information. Important Safety Reminders Keep equipment free from obstruction. Use your PAP equipment as directed. DO NOT try to adjust your pressure setting. DO NOT block the exhalation port or valve. Keep filters clean to prevent overheating. If a humidifier is being used, place it at a level lower than your head. If using a heated humidifier, allow unit to cool before cleaning or refilling. Follow safety guidelines regarding oxygen equipment.DO NOT operate multiple electrical devices from one outlet. If you have a medical emergency, contact the Emergency Medical Services. Below are the links to follow to watch a PAP education video: http://my.[facility].org/ho me_care/services/home_respirator y_therapy.aspx http://www.youtube.com/watch?v=p eJ_epDGzEw http://my.[facility].org/ne urological_institute/sleep-disor ders-center/treatment-services/p ap-therapy.aspx documented in this encounter [facility] 03-25-2024 History of Presen t illness Narrative Images from the original note were not included. [facility] New Patient Evaluation PATIENT NAME: Nella Benítez DATE OF SERVICE: March 25, 2024 CONSULTING PROVIDER: Eunice Joe [address] [facility] [address] REASON FOR CONSULT: Eunice Joe sends the patient for an opinion about CHINTAN, not sure if wants to start CPAP. My findings and recommendations will be transmitted electronically via shared medical record to the consulting provider. HPI: Nelal Benítez is a 73 year old female. Sleep-related history: recent diagnosis of CHINTAN, she wants to discuss treatment options, not sure she wants to use PAP therapy. Testing was ordered by Cardiology/[facility]. She has hx of paroxysmal SVT. Has overall mild CHINTAN which is exacerbated to severe in REM sleep. SLEEP-WAKE SCHEDULE Bedtime: 8-830 PM. She has a hard time falling asleep. Time to fall asleep: 1 hr Wake time: 8 AM After falling asleep: she wakes up 3-4 time(s) per night, because of the need to urinate. On weekends, she maintains the same sleep schedule. Average total sleep time (in a 24 hour period): 8 hours. SLEEP-RELATED DETAILS Preferred sleep position: back Breathing disturbances and other behaviors during sleep: moving around a lot--because of back issues Bruxism: No. Has TMD, has dental issues. GERD or aspiration: Yes Waking up with heart pounding or racing: Yes Anxiety or rumination: Yes She does not report having an urge to move the legs in the evening (when resting) that is accompanied or caused by uncomfortable and/or unpleasant sensations in the legs. She has not been told that she has leg kicking during sleep. The patient reports having had the following: Night terrors. 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 She does not report sleep paralysis or sleep-related hallucinations or cataplexy WAKE-RELATED DETAILS She does not work. She does have difficulty with memory She denies falling asleep or dozing off when driving. She does not take naps. She does drink 1 caffeinated beverages per day. There has not been a recent change in weight. Patient Questionnaires Sleep Scores 03/18/2024 Sleep Questions Reason for visit: Sleep apnea On average, hours of sleep in 24 hours: 8 Accidents or near accidents due to drowsy drivin 03/18/2024 [place] Sleepiness Scale Score 3 (No clinically significant daytime sleepiness) 03/18/2024 PROMIS CAT Sleep Disturbance PROMIS Sleep Disturbance T-Score 54 (within normal limits) PROMIS Sleep Disturbance Percentile 34 03/18/2024 Restless Leg Syndrome Score 0 (No Symptoms) 03/24/2024 PHQ-9 Score 0 03/13/2024 PROMIS Global Health - (T-Scores - the mean of general population = 50. Five points is a clinically meaningful difference.) Physical T-Score 47.7 Mental T-Score 43.5 PAST TREATMENTS: None PRIOR SLEEP STUDIES: A Polysomnogram performed on 03/08/24 revealed an AHI of 7.2; supine index of 11.4; REM index of 36, PLM index of 0, PLM arousal index of 0, and the oxygen saturation was below 88% for 16 min of the study. 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 Toth) VAGINAL HYSTERECTOMY UTERUS 250 GM/< vaginal with bilateral oophorectomy ACTIVE PROBLEM LIST Fibromyalgia Recurrent Major Depressive Disorder, in Remission (Hcc) Persistent Disorder of Initiating Or Maintaining Sleep Esophageal Reflux Allergic Rhinitis, Cause Unspecified Osteoporosis With Current Pathological Fracture With Routine Healing Dysmetabolic Syndrome X Other Malaise and Fatigue Other Hyperlipidemia Medullary Sponge Kidney Diarrhea Diverticulosis of Colon (Without Mention of Hemorrhage) Internal Hemorrhoids Without Mention of Complication External Hemorrhoids Without Mention of Complication Si (Sacroiliac) Joint Dysfunction Hypothyroidism Plantar Fasciitis of Left Foot Anxiety T12 Compression Fracture (Hcc) Cervical Disc Disorder of Mid-Cervical Region Spinal Stenosis, Lumbar Region, Without Neurogenic Claudication Essential Hypertension Stage 3a Chronic Kidney Disease (Hcc) Paroxysmal Svt (Supraventricular Tachycardia) ([facility]) Allergies As of Date: 03/25/2024 Allergen Noted Reaction LATEX 04/06/2007 Rash and Itching ACTONEL [RISEDRONATE SODIUM] 10/30/2005 GI Upset FOSAMAX [ALENDRONATE SODIUM] 10/30/2005 GI Upset Fully Assessed 03/25/2024 CURRENT MEDICATIONS: LORazepam (ATIVAN) 1 mg tablet Take 1 tablet by mouth daily at bedtime. May also take 1 tablet once daily as needed for anxiety. Do all this for 30 days. metoprolol succinate 25 mg CSpX Take 12.5 mg by mouth once daily. pantoprazole DR (PROTONIX) 40 mg tablet Take 1 tablet by mouth two times a day. As directed ALPRAZolam (XANAX) 0.5 mg tablet Take 1 tablet by mouth two times a day for 60 days. For Anxiety and SOB related to throat/laryngospasm as directed levothyroxine (SYNTHROID) 50 mcg tablet Take 1 tablet by mouth once daily. Cholecalciferol, Vitamin D3, 125 mcg (5,000 unit) cap Take 1 capsule by mouth once daily. sucralfate (CARAFATE) 1 gram tablet Take 1 tablet by mouth four times daily. As directed for flare ups. May dissolve in 1 to 2 teaspoons of water then swallow. buPROPion SR (WELLBUTRIN SR) 150 mg 12 hr tablet Take 1 tablet by mouth once daily. busPIRone (BUSPAR) 15 mg tablet Take 1.5 tablets by mouth two times a day. acetaminophen (TYLENOL 8 HOUR) 650 mg CR tablet Take 2 tablets by mouth every 8 hours as needed for pain. (try this one) citalopram (CELEXA) 40 mg tablet Take 1 tablet by mouth once daily. meloxicam (MOBIC) 15 mg tablet Take 1 tablet by mouth once daily. Take with food. tiZANidine (ZANAFLEX) 4 mg tablet Take 1 tablet by mouth twice daily as needed. calcium carbonate 600 mg-cholecalciferol 200 units (CALCIUM 600 + D,3,) 600 mg(1,500mg) -200 unit tab Take 1 tablet by mouth twice daily. Calcium viactive chewable fexofenadine (ALVINA) 180 mg tablet Take 180 mg by mouth once daily. CPAP/BIPAP/OTHER autoCPAP 5-15 cmH2O DME [employer] dicyclomine (BENTYL) 10 mg capsule Take 10 mg by mouth twice daily as needed. Review of Systems Constitutional: Negative for recent unintentional weight change. HENT: Positive for congestion. Cardiovascular: Positive for palpitations. Gastrointestinal: Positive for heartburn. Genitourinary: Positive for nocturia. Musculoskeletal: Positive for muscle weakness. Neurological: Positive for headaches (morning head "pounding") and memory loss. SOCIAL HISTORY: Social History Tobacco Use Smoking status: Never Smokeless tobacco: Never Tobacco comments: Father smoked in childhood home. Spouse non-smoker. Vaping Use Vaping Use: Never used Substance Use Topics Alcohol use: Yes Comment: Occasional, once or twice per month. Drug use: No FAMILY HISTORY: FAMILY HISTORY Problem Relation Age of Onset other (hodgkins [Other]) Father Osteoporosis Mother Asthma Sister Asthma Sister Asthma Son Youngest Ischemic Heart Disease Mother 02/28/13, age 84. There is no family history of sleep disorders. PHYSICAL EXAMINATION: Vital Signs: BP 147/91 Pulse 82 Resp 18 Wt 66.1 kg (145 lb 12.8 oz) SpO2 96% BMI 28.96 kg/m PHYSICAL EXAM: General appearance: pleasant, NAD Mental status: alert and oriented, able to provide own history Constitutional: WNL Skin: No visible rashes on exposed skin Neuro: No focal deficits observed, no tremors IMPRESSION/PLAN: G47.33 CHINTAN (obstructive sleep apnea) (primary encounter diagnosis) I10 Essential hypertension Nella Benítez is a 73 year old female with mild CHINTAN with secondary diagnosis of HTN. PMH of fibromyalgia, HLD, paroxysmal SVT, GERD, medullary sponge kidney, CKD, hypothyroidism, allergic rhinitis, cervical disc disease, spinal stenosis, anxiety. We reviewed her PSG results, discussed CHINTAN, risks of untreated CHINTAN, symptoms of HCINTAN, treatment options. Her CHINTAN isn't severe enough to qualify for [employer]. She has dental issues and TMD so she's not a good candidate for oral mandibular advancement device. Discussed PAP therapy in detail. Would look for significant improvement in her frequent nocturnal awakenings and nocturia with PAP therapy. Going away for April and May, she and her are driving cross[place]country. Will see if [facility] can start her on PAP before she leaves. - Will start Auto CPAP 5-15 cmH2O with a Nasal pillows mask or nasal mask - I will have a prescription sent to a [employer] company - [facility] who will be calling you in the next 1-2 weeks or so. Please call them directly or us if you do not hear from them in this time frame. - You should be eligible for new supplies approximately every 3-6 months, depending on your insurance coverage. - If your mask doesn't fit well, call the [employer] company before 30 days are up to get a new mask without an additional charge. - Insurance requires regular usage and periodic office follow ups for PAP therapy, to continue to cover supplies. - Follow up in 3 months in the office. Recommend scheduling this appointment now to ensure the best time for you. Ruth Dukes APRN.MASTER AUTOMOTIVE GLASS TECHNICIAN cc PCP and Cardiology [facility] documented in this encounter [facility] 03-16-2024 History of Presen t illness Narrative This note was created using Sensiotecter. Subjective Nella Benítez is a 73 year old female. Patient presents with: Established Patient: 4-5 month follow up with labs prior SUBJECTIVE: Nella Benítez is a 73 year old year old lady here today for 4 month follow up appointment for review of medical conditions. Having dental issues. Root canal and a couple extractions Needs partial to replace bridge that got loose. Reviewed that was in ER with panic attack. Lorazepam was more effective than alprazolam. Osteoporosis--noted progression on recent BMD 11/2023. Last Reclast was 3 years ago--just had the one and just did not get scheduled again. Would follow with entry level electrician to decide on further treatment. Jayden Kapoor at [facility] added lisinopril 5mg for BP control but BP dropped to 70/50. Still on half metoprolol XL 25mg daily. Has follow up. Still getting pounding headache in middle of the night. Started counseling in [place]. Doing well with this. Going away with for April and May. ?RBBB on ER ECG. See assessment and plan for other issues addressed. 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 Nontoxic multinodular goiter Persistent disorder of initiating or maintaining sleep 06/30/2005 Senile osteoporosis Current Outpatient Medications Medication Sig metoprolol succinate 25 mg CSpX Take 12.5 mg by mouth once daily. pantoprazole DR (PROTONIX) 40 mg tablet Take 1 tablet by mouth two times a day. As directed ALPRAZolam (XANAX) 0.5 mg tablet Take 1 tablet by mouth two times a day for 60 days. For Anxiety and SOB related to throat/laryngospasm as directed levothyroxine (SYNTHROID) 50 mcg tablet Take 1 tablet by mouth once daily. Cholecalciferol, Vitamin D3, 125 mcg (5,000 unit) cap Take 1 capsule by mouth once daily. sucralfate (CARAFATE) 1 gram tablet Take 1 tablet by mouth four times daily. As directed for flare ups. May dissolve in 1 to 2 teaspoons of water then swallow. buPROPion SR (WELLBUTRIN SR) 150 mg 12 hr tablet Take 1 tablet by mouth once daily. busPIRone (BUSPAR) 15 mg tablet Take 1.5 tablets by mouth two times a day. acetaminophen (TYLENOL 8 HOUR) 650 mg CR tablet Take 2 tablets by mouth every 8 hours as needed for pain. (try this one) citalopram (CELEXA) 40 mg tablet Take 1 tablet by mouth once daily. meloxicam (MOBIC) 15 mg tablet Take 1 tablet by mouth once daily. Take with food. tiZANidine (ZANAFLEX) 4 mg tablet Take 1 tablet by mouth twice daily as needed. calcium carbonate 600 mg-cholecalciferol 200 units (CALCIUM 600 + D,3,) 600 mg(1,500mg) -200 unit tab Take 1 tablet by mouth twice daily. Calcium viactive chewable fexofenadine (ALVINA) 180 mg tablet Take 180 mg by mouth once daily. LORazepam (ATIVAN) 1 mg tablet Take 1 tablet by mouth daily at bedtime. May also take 1 tablet once daily as needed for anxiety. Do all this for 30 days. pregabalin (LYRICA) 75 mg capsule Take 1 capsule by mouth once daily for 180 days. (filled for twice daily but taking just once daily so will last till January) colestipol (COLESTID) 1 gram tablet Take 1-2 tablets by mouth once daily. around lunchtime. Wait at least 1 hour after other meds to take it. dicyclomine (BENTYL) 10 mg capsule Take 10 mg by mouth twice daily as needed. No current facility-administered medications for this visit. Review of Systems Objective BP 122/82 Pulse 88 Temp 36.2 C (97.1 F) Resp 18 Wt 65.8 kg (145 lb) SpO2 98% BMI 28.80 kg/m Physical Exam Constitutional: Appearance: Normal appearance. HENT: Head: Normocephalic. Eyes: Conjunctiva/sclera: Conjunctivae normal. Cardiovascular: Rate and Rhythm: Normal rate and regular rhythm. Heart sounds: Normal heart sounds. Pulmonary: Effort: Pulmonary effort is normal. Breath sounds: Normal breath sounds. Musculoskeletal: Right lower leg: No edema. Left lower leg: No edema. Skin: General: Skin is warm and dry. Neurological: General: No focal deficit present. Mental Status: She is alert and oriented to person, place, and time. Psychiatric: Attention and Perception: Attention and perception normal. Mood and Affect: Mood and affect normal. Speech: Speech normal. Behavior: Behavior normal. Thought Content: Thought content normal. Judgment: Judgment normal. Latest Ref Rng 11/26/2022 11/07/2023 03/10/2024 Protein, Total 6.3 - 8.0 g/dL 6.4 6.3 6.6 Albumin 3.9 - 4.9 g/dL 4.2 4.2 4.1 Calcium 8.5 - 10.2 mg/dL 9.3 9.1 9.3 Bilirubin, Total 0.2 - 1.3 mg/dL 0.3 0.3 0.4 Alkaline Phosphatase 34 - 123 U/L 54 66 70 AST 13 - 35 U/L 17 15 15 ALT 7 - 38 U/L 9 9 12 Glucose 74 - 99 mg/dL 73 (L) 90 83 BUN 7 - 21 mg/dL 13 9 13 Creatinine 0.58 - 0.96 mg/dL 1.05 (H) 0.90 1.00 (H) Sodium 136 - 144 mmol/L 136 139 139 Potassium 3.7 - 5.1 mmol/L 4.2 3.6 (L) 4.0 Chloride 97 - 105 mmol/L 103 101 104 CO2 22 - 30 mmol/L 25 27 23 Anion Gap 9 - 18 mmol/L 8 (L) 11 12 eGFR >=60 mL/min/1.73m 57 (L) 68 60 WBC 3.70 - 11.00 k/uL 6.24 5.70 7.27 RBC 3.90 - 5.20 m/uL 3.98 3.97 4.12 Hemoglobin 11.5 - 15.5 g/dL 11.9 11.2 (L) 11.8 Hematocrit 36.0 - 46.0 % 37.1 36.0 38.3 MCV 80.0 - 100.0 fL 93.2 90.7 93.0 MCH 26.0 - 34.0 pg 29.9 28.2 28.6 MCHC 30.5 - 36.0 g/dL 32.1 31.1 30.8 RDW-CV 11.5 - 15.0 % 13.6 13.5 15.2 (H) Platelet Count 150 - 400 k/uL 352 382 439 (H) MPV 9.0 - 12.7 fL 10.1 9.8 9.7 Absolute nRBC <0.01 k/uL <0.01 <0.01 <0.01 TSH 0.270 - 4.200 mIU/L 0.898 0.653 Free T4 0.9 - 1.7 ng/dL 1.4 1.4 Free T3 2.3 - 4.1 pg/mL 2.5 2.4 Legend: (L) Low (H) High Assessment and Plan ASSESSMENT/PLAN: 1. Severe anxiety with panic - ICD9: 300.01, ICD10: F41.0 (primary diagnosis) Continue present meds. Following with counselor. Doing better - LORAZEPAM 1 MG TABLET 2. Age-related osteoporosis without current pathological fracture - ICD9: 733.01, ICD10: M81.0 - Reviewed the need for Calcium and Vitamin D supplements and weight bearing exercise as tolerated - CONSULT TO [facility]--Endocrinology, Dr. Justino Gomez 3. CHINTAN (obstructive sleep apnea) - ICD9: 327.23, ICD10: G47.33 Wants to discuss with sleep medicine whether to resume CPAP as ordered. Further evaluation and treatment as indicated. - CONSULT TO SLEEP MEDICINE - ADULT No problem-specific Assessment & Plan notes found for this encounter. Eunice Joe MD documented in this encounter [facility] 03-03-2024 Telephone encounter Note Patient calls and states that she has had a headache for the past one hour. Patient reports that she has been short of breath and dizzy when she stands up. Patient thinks that this is due to anxiety. Patient states that she took a Xanax which did not help. Blood pressure is 149/85, Pulse 103. Patient states that she had corticoid steroid injection to Right hip yesterday. Nurse Triage assessment completed with protocol recommending for disposition of Go to ED now. Care advice reviewed with patient, patient stated understanding. Reason for Disposition Patient sounds very sick or weak to the triager Answer Assessment - Initial Assessment Questions 1. LOCATION: All over head 2. ONSET: An hour ago 3. PATTERN: Constant 4. SEVERITY: Rates pain 3 out of 10 5. RECURRENT SYMPTOM: Yes 6. CAUSE: Unsure had Corticoid steroid yesterday to right hip 7. MIGRAINE: Denies 8. HEAD INJURY: "Has there been any recent injury to the head?" Denies 9. OTHER SYMPTOMS: Shortness of breath; dizzy when stands up; BP 149/85 P 103 Protocols used: [id number] [facility] 03-03-2024 Miscellaneous Notes Patient calls and states that she has had a headache for the past one hour. Patient reports that she has been short of breath and dizzy when she stands up. Patient thinks that this is due to anxiety. Patient states that she took a Xanax which did not help. Blood pressure is 149/85, Pulse 103. Patient states that she had corticoid steroid injection to Right hip yesterday. Nurse Triage assessment completed with protocol recommending for disposition of Go to ED now. Care advice reviewed with patient, patient stated understanding. Reason for Disposition Patient sounds very sick or weak to the triager Answer Assessment - Initial Assessment Questions 1. LOCATION: All over head 2. ONSET: An hour ago 3. PATTERN: Constant 4. SEVERITY: Rates pain 3 out of 10 5. RECURRENT SYMPTOM: Yes 6. CAUSE: Unsure had Corticoid steroid yesterday to right hip 7. MIGRAINE: Denies 8. HEAD INJURY: "Has there been any recent injury to the head?" Denies 9. OTHER SYMPTOMS: Shortness of breath; dizzy when stands up; BP 149/85 P 103 Protocols used: [id number] documented in this encounter [place] [id number] Telephone encounter Note Patient has been identified by name and date of : Yes Patient phones for refill(s): Requested Prescriptions Pending Prescriptions Disp Refills pantoprazole DR (PROTONIX) 40 mg tablet 180 tablet 3 Sig: Take 1 tablet by mouth two times a day. As directed Date of last office visit in primary care: 11/11/2023 Date of next office visit in primary care: 03/16/2024 Please advise. Thank you. Cherelle Ellis MA. [facility] 02-22-2024 Miscellaneous Notes Patient has been identified by name and date of : Yes Patient phones for refill(s): Requested Prescriptions Pending Prescriptions Disp Refills pantoprazole DR (PROTONIX) 40 mg tablet 180 tablet 3 Sig: Take 1 tablet by mouth two times a day. As directed Date of last office visit in primary care: 11/11/2023 Date of next office visit in primary care: 03/16/2024 Please advise. Thank you. Cherelle Ellis MA. documented in this encounter [facility] 02-09-2024 Telephone encounter Note PDMP website checked and validated. All prescriptions have been APPROPRIATELY filled. No suspicious activity was identified. 02/09/2024 by Abner Denny APRN.CNP [facility] 02-09-2024 Miscellaneous Notes PDMP website checked and validated. All prescriptions have been APPROPRIATELY filled. No suspicious activity was identified. 02/09/2024 by Abner Denny APRN.CNP Patient has been identified by name and date of : Yes Patient phones for refill(s): Requested Prescriptions Pending Prescriptions Disp Refills ALPRAZolam (XANAX) 0.5 mg tablet 60 tablet 1 Sig: Take 1 tablet by mouth two times a day for 60 days. For Anxiety and SOB related to throat/laryngospasm as directed Date of last office visit in primary care: 11/11/2023 Date of next office visit in primary care: 03/16/2024 Please advise. Thank you. Luz Rodriguez LPN. documented in this encounter [facility] 02-09-2024 Telephone encounter Note Patient has been identified by name and date of : Yes Patient phones for refill(s): Requested Prescriptions Pending Prescriptions Disp Refills ALPRAZolam (XANAX) 0.5 mg tablet 60 tablet 1 Sig: Take 1 tablet by mouth two times a day for 60 days. For Anxiety and SOB related to throat/laryngospasm as directed Date of last office visit in primary care: 11/11/2023 Date of next office visit in primary care: 03/16/2024 Please advise. Thank you. Luz Rodriguez LPN. [facility] 01-25-2024 Miscellaneous Notes Patient has been identified by name and date of : Yes Patient phones for refill(s): Requested Prescriptions Pending Prescriptions Disp Refills levothyroxine (SYNTHROID) 50 mcg tablet 90 tablet 3 Sig: Take 1 tablet by mouth once daily. Date of last office visit in primary care: 11/11/2023 Date of next office visit in primary care: 01/25/2024 Please advise. Thank you. Luz Rodriguez LPN. documented in this encounter [facility] 01-25-2024 Miscellaneous Notes Patient has been identified by name and date of : Yes Patient phones for refill(s): Requested Prescriptions Pending Prescriptions Disp Refills Cholecalciferol, Vitamin D3, 125 mcg (5,000 unit) cap 90 capsule 3 Sig: Take 1 capsule by mouth once daily. Date of last office visit in primary care: 11/11/2023 Date of next office visit in primary care: 03/16/2024 Please advise. Thank you. Luz Rodriguez LPN. documented in this encounter [facility] 11-11-2023 History of Presen t illness Narrative This note was created using [employer]. Subjective Nella Benítez is a 73 year old female. Patient presents with: Follow Up: fell on Thursday - had some dizziness after the fall improved now, right shoulder brutisis, review labs SUBJECTIVE: Nella Benítez is a 73 year old year old lady here today for follow up appointment for review of medical conditions. Stable on meds for anxiety. Stool went out from under her when was leaning forward to put bandaid on foot. Landed on bottom and then twisted sideways. Achy till Thursday. Still has pain in right shoulder--thinks is bursitis. Pain goes down to hand. Has had wrist issues too--will follow up with Dr. Pham as needed. Clinically euthyroid. Finished carafate over the weekend. Noted hiatal hernia. Associated chest pain. No night time symptoms usually. Noted that Dr. Young stopped metoprolol 12.5 mg dose since BP was okay. Legs still feeling weak despite stopping the metoprolol. Doing better with walking since had tem cell treatment. Had multiple joints treated. BPs 130s to 140s lately. Just a few 160 and 180s a while ago. 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 Nontoxic multinodular goiter Persistent disorder of initiating or maintaining sleep 06/30/2005 Senile osteoporosis Current Outpatient Medications Medication Sig ALPRAZolam (XANAX) 0.5 mg tablet Take 1 tablet by mouth two times a day for 60 days. For Anxiety and SOB related to throat/laryngospasm as directed busPIRone (BUSPAR) 15 mg tablet Take 1.5 tablets by mouth two times a day. busPIRone (BUSPAR) 15 mg tablet Take 1.5 tablets by mouth once daily. pregabalin (LYRICA) 75 mg capsule Take 1 capsule by mouth once daily for 180 days. (filled for twice daily but taking just once daily so will last till January) acetaminophen (TYLENOL 8 HOUR) 650 mg CR tablet Take 2 tablets by mouth every 8 hours as needed for pain. (try this one) citalopram (CELEXA) 40 mg tablet Take 1 tablet by mouth once daily. meloxicam (MOBIC) 15 mg tablet Take 1 tablet by mouth once daily. Take with food. tiZANidine (ZANAFLEX) 4 mg tablet Take 1 tablet by mouth twice daily as needed. buPROPion SR (ZYBAN SR; WELLBUTRIN SR) 150 mg 12 hr tablet Take 1 tablet by mouth once daily. As directed (filled 10/11/22 for taking twice daily and got 180 tablets) colestipol (COLESTID) 1 gram tablet Take 1-2 tablets by mouth once daily. around lunchtime. Wait at least 1 hour after other meds to take it. dicyclomine (BENTYL) 10 mg capsule Take 10 mg by mouth twice daily as needed. levothyroxine (SYNTHROID) 50 mcg tablet Take 1 tablet by mouth once daily. Cholecalciferol, Vitamin D3, 125 mcg (5,000 unit) cap Take 1 capsule by mouth once daily. pantoprazole DR (PROTONIX) 40 mg tablet Take 1 tablet by mouth twice daily. As directed calcium carbonate 600 mg-cholecalciferol 200 units (CALCIUM 600 + D,3,) 600 mg(1,500mg) -200 unit tab Take 1 tablet by mouth twice daily. Calcium viactive chewable fexofenadine (ALVINA) 180 mg tablet Take 180 mg by mouth once daily. No current facility-administered medications for this visit. Review of Systems Objective BP 150/78 (BP Site: Left Arm, BP Position: Sitting, BP Cuff Size: Large Adult) Pulse 85 Temp 37.2 C (98.9 F) Resp 12 Ht 151.1 cm (4' 11.5") Wt 66.2 kg (146 lb) SpO2 99% BMI 28.99 kg/m Last 5 Encounter Wt Readings: Date: Wt: 11/11/2023 66.2 kg (146 lb) 07/04/2023 67.2 kg (148 lb 3.2 oz) 06/05/2023 69.4 kg (153 lb) 05/01/2023 68.9 kg (151 lb 12.8 oz) 03/25/2023 69.6 kg (153 lb 6.4 oz) No waist measurement recorded Estimated body mass index is 28.99 kg/m as calculated from the following: Height as of this encounter: 151.1 cm (4' 11.5"). Weight as of this encounter: 66.2 kg (146 lb). Last 5 Encounter BP Readings: Date: BP: 11/11/2023 150/78 07/04/2023 142/85 06/05/2023 138/78 05/01/2023 183/95 03/25/2023 138/84 Physical Exam Musculoskeletal: Right shoulder: Swelling (puffiness suprascapular area; tender) and tenderness (anerior shoulder and posterior shoulder) present. Decreased range of motion. Left shoulder: No tenderness. Normal range of motion. Component Latest Ref Rng & Units 01/07/2022 02/11/2022 11/26/2022 11/07/2023 Protein, Total 6.3 - 8.0 g/dL 6.5 6.4 6.3 Albumin 3.9 - 4.9 g/dL 4.4 4.2 4.2 4.2 Calcium 8.5 - 10.2 mg/dL 9.7 9.3 9.3 9.1 Bilirubin, Total 0.2 - 1.3 mg/dL 0.2 0.3 0.3 Alkaline Phosphatase 34 - 123 U/L 70 54 66 AST 13 - 35 U/L 14 17 15 ALT 7 - 38 U/L 8 9 9 Glucose 74 - 99 mg/dL 82 87 73 (L) 90 BUN 7 - 21 mg/dL 11 10 13 9 Creatinine 0.58 - 0.96 mg/dL 1.02 (H) 1.01 (H) 1.05 (H) 0.90 Sodium 136 - 144 mmol/L 142 139 136 139 Potassium 3.7 - 5.1 mmol/L 4.4 4.4 4.2 3.6 (L) Chloride 97 - 105 mmol/L 103 102 103 101 CO2 22 - 30 mmol/L 29 25 25 27 Anion Gap 9 - 18 mmol/L 10 12 8 (L) 11 eGFR >=60 mL/min/1.73m 59 (L) 60 57 (L) 68 Phosphorus 2.7 - 4.8 mg/dL 3.8 WBC 3.70 - 11.00 k/uL 6.24 5.70 RBC 3.90 - 5.20 m/uL 3.98 3.97 Hemoglobin 11.5 - 15.5 g/dL 11.9 11.2 (L) Hematocrit 36.0 - 46.0 % 37.1 36.0 MCV 80.0 - 100.0 fL 93.2 90.7 MCH 26.0 - 34.0 pg 29.9 28.2 MCHC 30.5 - 36.0 g/dL 32.1 31.1 RDW-CV 11.5 - 15.0 % 13.6 13.5 Platelet Count 150 - 400 k/uL 352 382 MPV 9.0 - 12.7 fL 10.1 9.8 Absolute nRBC <0.01 k/uL <0.01 <0.01 Cholesterol, Total <200 mg/dL 264 (H) Triglyceride <150 mg/dL 175 (H) HDL Cholesterol >39 mg/dL 71 Non HDL Cholesterol <130 mg/dL 193 (H) Fasting Time hrs 15 VLDL Cholesterol <30 mg/dL 35 (H) TC:HDL Ratio <5.10 3.72 LDL Cholesterol <100 mg/dL 158 (H) LDL:HDL Ratio <2.54 2.23 TSH 0.270 - 4.200 mIU/L 1.130 0.898 0.653 Free T4 0.9 - 1.7 ng/dL 1.4 1.4 Free T3 2.3 - 4.1 pg/mL 2.5 2.4 Assessment and Plan Encounter Diagnosis ICD-10-CM 1. Strain of right shoulder, initial encounter S46.911A from falling; follow up with ortho as needed 2. Anxiety F41.9 ALPRAZolam (XANAX) 0.5 mg tablet 3. Gastroesophageal reflux disease, unspecified whether esophagitis present K21.9 Has hiatal hernia. Can use carafate as needed--better after week course taking twice daily. Consider sodium alginate 4. Recurrent major depressive disorder, in remission ([facility]) F33.40 buPROPion SR (WELLBUTRIN SR) 150 mg 12 hr tablet 5. Grief reaction F43.21 ALPRAZolam (XANAX) 0.5 mg tablet 6. Encounter for long-term current use of medication Z79.899 COMP METABOLIC PANEL CBC 7. Anemia, unspecified type D64.9 CBC 8. Hypokalemia E87.6 COMP METABOLIC PANEL 9. HARTMANN (dyspnea on exertion) R06.09 Could be some from HH. Considering surgery but not wanting to pursue at this time 10. Cervical disc disorder of mid-cervical region M50.920 11. Cervical radiculopathy M54.12 Above issues addressed with patient. Patient involved in shared decision making for management of medical issues. History and medications reviewed. Epic updated as needed Refills and/or prescriptions taken care of and meds adjusted as indicated after reviewed history, exam and labs. Health Maintenance reviewed. Updated record and/or ordered tests as recorded. Encouraged on efforts at healthy diet and regular exercise and adequate sleep. I spent a total of at least 38 minutes on the date of the service which included [id number] patient care, completing clinical documentation, obtaining and/or reviewing separately obtained history, performing a medically appropriate examination, counseling and educating the patient/family/caregiver, and ordering medications, tests, or procedures. Eunice Joe MD documented in this encounter [facility] 11-11-2023 Nurse Note patient has had weight loss of about 7lbs since september documented in this encounter [facility] 08-12-2023 Miscellaneous Notes Refill sent with correct dosing instructions, not sure why that got changed. See Medication Request Encounter. Heather Feliz RN Patient calling, thinks that there has been some confusion with 2 of her medications. Patient has been taking Buspirone 15 mg 1.5 tablets twice daily however most recent Rx that was sent has her only taking once daily. Asking for new Rx to be sent with correct instructions so she can fill it on time. Patient thinks it may of gotten confused with her Bupropion that she only takes once daily. Please advise. documented in this encounter [facility] 08-12-2023 Miscellaneous Notes Patient calls and states that there is some confusion with her buspirone. Patient thinks that the confusion may be that she also take bupropion once daily. Patient's prescription was changed from twice daily to once daily on 06/29/2023. Patient unsure why this was changed. Patient requesting refill for medication twice daily. Looks like patient had reported that she took it only once a day, however she takes medication twice a day. Date of last office: 06/05/2023 Date of next office visit: 11/11/2022 Requested Prescriptions Pending Prescriptions Disp Refills ALPRAZolam (XANAX) 0.5 mg tablet 60 tablet 1 Sig: Take 1 tablet by mouth two times a day for 60 days. For Anxiety and SOB related to throat/laryngospasm as directed busPIRone (BUSPAR) 15 mg tablet 270 tablet 3 Sig: Take 1.5 tablets by mouth two times a day. Date of Last Labs: 11/26/2022 Please advise. Thank you. Heather Feliz RN. documented in this encounter [facility] 07-04-2023 Instructions Rachna Malloy APRN.ISABELLA - 07/04/2023 11:35 AM EDT Images from the original note were not included. Adult Sinusitis Patient Education What is Sinusitis? Sinusitis [[id number]] is inflammation of the sinuses or swelling of the lining of the sinus cavity or nose. During an infection the sinuses become blocked with fluid causing swelling of the lining of the sinuses. Symptoms: (viral and bacterial infections) Stuffy nose Runny nose Postnasal drip Fever Toothache Headache Tiredness Cough Sore throat Face and head pressure and or pain Common causes: 98% of sinus infections are viral caused by viruses. Risk Factors of Sinusitis Include: Allergies, air pollution, indoor humidity and outdoor temperature changes, andstructural changes in the nose may contribute to sinus pain, pressure and congestion. When to get help? Temperature greater than 100.4 F Symptoms lasting more than 10 days or worsening symptoms greater than 7-10 days. If you do not improve or worsen after a course of antibiotics, you should be re-examined. Diagnosis and Treatment: Your healthcare provider will ask a number of questions about your symptoms and how long they have occurred. If symptoms of sinusitis persist greater than 10 days, it is possible you have a bacterial sinus infection and an antibiotic is prescribed. If it is viral, antibiotics will not help. You may be instructed to take [id number] medications for symptoms. including fever reducers acetaminophen or ibuprofen, nasal saline spray, cough and cold preparations and decongestants as prescribed by the physician, nurse practitioner or physician lead assistant manager. Self-Care and Prevention: Rest Fluids for hydration Good hand washing Humidifier Avoid smoking and exposure to second hand smoke Avoid sick contacts documented in this encounter [facility] 07-04-2023 History of Presen t illness Narrative This note was created using [employer]. Subjective Nella Benítez is a 72 year old female. HPI pt start with cough, fatigue, weakness, and achy about 8 days ago. Bringing up some dark green mucus. Taking Corcidin and Tylenol. Review of Systems Constitutional: Positive for fatigue. HENT: Positive for congestion, postnasal drip, rhinorrhea, sinus pressure and sneezing. Respiratory: Positive for cough and shortness of breath. Neurological: Positive for dizziness, light-headedness and headaches. Objective BP 142/85 Pulse 97 Temp 36.8 C (98.3 F) Resp 24 Wt 67.2 kg (148 lb 3.2 oz) SpO2 98% BMI 29.43 kg/m Physical Exam Constitutional: Appearance: She is ill-appearing. HENT: Head: Normocephalic. Right Ear: Tympanic membrane normal. Left Ear: Tympanic membrane normal. Nose: Congestion and rhinorrhea present. Mouth/Throat: Mouth: Mucous membranes are moist. Pharynx: Posterior oropharyngeal erythema present. Cardiovascular: Rate and Rhythm: Normal rate. Pulmonary: Breath sounds: Normal breath sounds. Skin: General: Skin is warm. Coloration: Skin is pale. Neurological: Mental Status: She is alert. Assessment and Plan ASSESSMENT/PLAN: 1. Acute non-recurrent frontal sinusitis - ICD9: 461.1, ICD10: J01.10 - Will begin treatment with Augmentin 875 mg PO BID for 7 days - The patient should also be given OTC decongestants prn, OTC cough and cold meds as needed, warm salt water gargles, throat lozenges and/or OTC throat spray as needed, nasal saline gtts and suction prn, and Flonase for the first 5-7 days of treatment. - Supportive care with plenty of fluids, rest, and analgesia prn. - Follow up in 3-5 days if symptoms persist or worsen. Rachna Malloy APRN.CNP Medical Decision Making: Problems: Low: Acute, uncomplicated illness or injury Risk: Low: Low risk from testing/treatment Moderate: Drug management Medical Decision Making Level: 3 - Low documented in this encounter [facility] 06-29-2023 Miscellaneous Notes Last office visit: 06/05/23 Next appointment scheduled: 11/11/23 Patient phones requesting refills as follows: Requested Prescriptions Pending Prescriptions Disp Refills busPIRone (BUSPAR) 15 mg tablet 270 tablet 3 Sig: Take 1.5 tablets by mouth twice daily. Please review and advise. Cynthia Alanis LPN documented in this encounter [facility] 06-25-2023 History of Presen t illness Narrative Associated Order(s): Additional Injections: bilateral carpal tunnel Post-Procedure Diagnose(s): Bilateral carpal tunnel syndrome Images from the original note were not included. Additional Injections: bilateral carpal tunnel for carpal tunnel syndrome Informed Consent Consent Obtained: Verbal [place] Protocol A moment to CARE was completed. SIGN IN Personnel directly involved with the procedure wore the appropriate PPE. Special Equipment: N/A Patient/Surrogate Stated/Verified: Patient name, Date of , Relevant allergies and Intended procedure TIME OUT Intended patient and procedure match the source document(s). Consent documented and matches the intended procedure. Relevant labs, photos, and/or imaging studies have been reviewed. Correct side/site marked and visible. Medications required for procedure verified. No fire risk assessment and interventions applicable. No implant(s) inserted. 06/25/2023 1:02 PM The procedure site was prepped in the usual sterile fashion. Medications (Right): 10 mg triamcinolone acetonide 10 mg/mL Medications (Left): 10 mg triamcinolone acetonide 10 mg/mL Anesthetics (Right): 1 mL BUPivacaine (PF) 0.5 % (5 mg/mL) Anesthetics (Left): 1 mL BUPivacaine (PF) 0.5 % (5 mg/mL) Outcome: tolerated well, no immediate complications Post-injection instructions were reviewed with the patient and the patient voiced understanding of these instructions. SIGN OUT All instruments, equipment, possible retained foreign bodies accounted for. Follow Up Visit Chief Complaint Nella Benítez is a 72 year old female who presents today for follow up office visit. Patient presents with: Left Wrist - Follow Up: 8 week 1 day post visit CTS CMS arthritis , Psuedo gout - unable to complete EMG testing Right Wrist - Follow Up: 8 week, 1 day post visit CTS, Psuedo gout - unable to complete EMG testing History of Present Illness PAIN EVALUATION 06/24/2023 1510 Pain Level: 6 Pain Location: Wrist-Right Description: Aching Frequency: Intermittent Intervention/Comfort measure: Cold HPI: Nella Benítez is a 72 year old female for a follow up visit b/l wrist pain. Pain history is noted as above. Denies new or worsening pain, numbness, tingling, fever, chills or other constitutional symptoms. Is there any overall improvement in your condition? No Any new injury, since being seen last: No REVIEW OF SYMPTOMS: Patient did not have, and does not currently have, any weight loss, malaise, fever, chills, headache, chest pain, chest pressure, palpitations, cough, shortness of breath, orthopnea, paroxsymal nocturnal dyspnea, nausea, vomiting, diarrhea, constipation, melena, hematochezia, urinary difficulties, prolonged bleeding, easily bruising, heat or cold intolerance, new onset joint pain or swelling, new onset extremity weakness or numbness, new onset auditory or visual disturbances, lightheadedness, dizziness, partial loss of consciousness or full loss of consciousness. Current Outpatient Medications Medication Sig pregabalin (LYRICA) 75 mg capsule Take 1 capsule by mouth once daily for 180 days. (filled for twice daily but taking just once daily so will last till January) ALPRAZolam (XANAX) 0.5 mg tablet Take 1 tablet by mouth twice daily for 60 days. For Anxiety and SOB related to throat/laryngospasm as directed acetaminophen (TYLENOL 8 HOUR) 650 mg CR tablet Take 2 tablets by mouth every 8 hours as needed for pain. (try this one) citalopram (CELEXA) 40 mg tablet Take 1 tablet by mouth once daily. meloxicam (MOBIC) 15 mg tablet Take 1 tablet by mouth once daily. Take with food. tiZANidine (ZANAFLEX) 4 mg tablet Take 1 tablet by mouth twice daily as needed. buPROPion SR (ZYBAN SR; WELLBUTRIN SR) 150 mg 12 hr tablet Take 1 tablet by mouth once daily. As directed (filled 10/11/22 for taking twice daily and got 180 tablets) dicyclomine (BENTYL) 10 mg capsule Take 10 mg by mouth twice daily as needed. levothyroxine (SYNTHROID) 50 mcg tablet Take 1 tablet by mouth once daily. Cholecalciferol, Vitamin D3, 125 mcg (5,000 unit) cap Take 1 capsule by mouth once daily. pantoprazole DR (PROTONIX) 40 mg tablet Take 1 tablet by mouth twice daily. As directed calcium carbonate 600 mg-cholecalciferol 200 units (CALCIUM 600 + D,3,) 600 mg(1,500mg) -200 unit tab Take 1 tablet by mouth twice daily. Calcium viactive chewable fexofenadine (ALVINA) 180 mg tablet Take 180 mg by mouth once daily. colestipol (COLESTID) 1 gram tablet Take 1-2 tablets by mouth once daily. around lunchtime. Wait at least 1 hour after other meds to take it. (Patient not taking: Reported on 06/05/2023) No current facility-administered medications for this visit. Physical Exam Vitals: There were no vitals taken for this visit. Psych: Pleasant, good affect and mood General Appearance: Well appearing, alert, in no acute distress, well-hydrated, well nourished.. Skin: Skin color, texture, turgor normal, no suspicious rashes or lesions. Peripheral Pulses: Normal. Neurologic: Gait normal. Reflexes normal and symmetric. Sensation grossly intact.. Lymph Nodes: No cervical lymphadenopathy, No supraclavicular lymphadenopathy, No axillary lymphadenopathy., and No inguinal lymphadenopathy.. Respiratory: No recent pulmonary infection, hemoptysis, chronic cough, or shortness of breath at rest Rheumatologic: Joint deformities: b/l wrist pain Ortho Exam Assessment and Plan Radiographs: No imaging to review. Impression: Encounter Diagnosis ICD-10-CM 1. Bilateral carpal tunnel syndrome G56.03 Today, in detail, through a thorough evaluation, we discussed possible etiologies of pain and our plans for further diagnostic and therapeutic interventions. We discussed strategies for decreasing pain and improving strength, stability and motion. Patient's questions were answered in detailed. Patient verbalizes understanding and agrees with the treatment plan as discussed. Discussed with patient possible options for treatment. Patient elected proceed with injection. Patient told not to submerge the injected area for 24 hours in a hot tub, or bath, injection may take 2 weeks for improvement to be noticed, follow-up in 2 -6 weeks if symptoms do not resolve. All questions answered patient agreement of plan. Apply ice Limit activities as discussed Rest Do not submerge limb in water for 24 hours Cont current meds Watch sugars/decrease carbs Call if warm/hot/red Discussed with patient that if the injection does not work after 2 to 4 weeks to come back for reevaluation. Discussed the next 3 days may feel worse before it feels better. Discussed if having continued pain to return. May get injection every 3 months Katherine Pham D.O. MNathanaelP.H. Patient presents with: Left Wrist - Follow Up: 8 week 1 day post visit CTS CMS arthritis , Psuedo gout - unable to complete EMG testing Right Wrist - Follow Up: 8 week, 1 day post visit CTS, Psuedo gout - unable to complete EMG testing AMB ROOMING INTAKE FLOWSHEET DATA Pain Pain Level: 6 Pain Location: Wrist-Right Description: Aching Frequency: Intermittent Intervention/Comfort measure: Cold documented in this encounter [facility] 06-17-2023 Miscellaneous Notes Last office visit: 06/05/23 Next appointment scheduled: 11/11/23 Last labs: 03/03 and 02/01 Patient phones requesting refills as follows: Requested Prescriptions Pending Prescriptions Disp Refills ALPRAZolam (XANAX) 0.5 mg tablet 60 tablet 1 Sig: Take 1 tablet by mouth twice daily for 60 days. For Anxiety and SOB related to throat/laryngospasm as directed Please review and advise. Cynthia Alanis LPN documented in this encounter [facility] 06-17-2023 Miscellaneous Notes Last office visit: 06/05/23 Next appointment scheduled: 11/11/23 Last labs: 03/03 and 02/01 Patient phones requesting refills as follows: Requested Prescriptions Pending Prescriptions Disp Refills pregabalin (LYRICA) 75 mg capsule 30 capsule 5 Sig: Take 1 capsule by mouth once daily for 180 days. (filled for twice daily but taking just once daily so will last till January) Please review and advise. Cynthia Alanis LPN documented in this encounter [facility] 06-05-2023 History of Presen t illness Narrative This note was created using [employer]. Subjective Nella Benítez is a 72 year old female. Patient presents with: F/U 6 months SUBJECTIVE: Nella Benítez is a 72 year old year old lady here today for 6 month follow up appointment for review of medical conditions. Right mid back pain from mid back to under shoulder blade to her side Heating pad used last night after pain started. Might have twisted wrong . Just sticks to Tylenol. But taking two 650mg. Dr. Young stopped metoprolol. Wonders about tapering off Lyrica. Doing better after stem cell therapy. Xanax was once daily at bedtime. Stressors lately and now needing twice daily. 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 ALPRAZolam (XANAX) 0.5 mg tablet Take 1 tablet by mouth twice daily for 60 days. For Anxiety and SOB related to throat/laryngospasm as directed meloxicam (MOBIC) 15 mg tablet Take 1 tablet by mouth once daily. Take with food. tiZANidine (ZANAFLEX) 4 mg tablet Take 1 tablet by mouth twice daily as needed. buPROPion SR (ZYBAN SR; WELLBUTRIN SR) 150 mg 12 hr tablet Take 1 tablet by mouth once daily. As directed (filled 10/11/22 for taking twice daily and got 180 tablets) dicyclomine (BENTYL) 10 mg capsule Take 10 mg by mouth twice daily as needed. levothyroxine (SYNTHROID) 50 mcg tablet Take 1 tablet by mouth once daily. pregabalin (LYRICA) 75 mg capsule Take 1 capsule by mouth once daily for 180 days. (filled for twice daily but taking just once daily so will last till January) Cholecalciferol, Vitamin D3, 125 mcg (5,000 unit) cap Take 1 capsule by mouth once daily. pantoprazole DR (PROTONIX) 40 mg tablet Take 1 tablet by mouth twice daily. As directed calcium carbonate 600 mg-cholecalciferol 200 units (CALCIUM 600 + D,3,) 600 mg(1,500mg) -200 unit tab Take 1 tablet by mouth twice daily. Calcium viactive chewable fexofenadine (ALVINA) 180 mg tablet Take 180 mg by mouth once daily. acetaminophen (TYLENOL 8 HOUR) 650 mg CR tablet Take 2 tablets by mouth every 8 hours as needed for pain. (try this one) colestipol (COLESTID) 1 gram tablet Take 1-2 tablets by mouth once daily. around lunchtime. Wait at least 1 hour after other meds to take it. (Patient not taking: Reported on 06/05/2023) No current facility-administered medications for this visit. Review of Systems Objective BP 138/78 Pulse 82 Temp 37.2 C (99 F) Resp 18 Wt 69.4 kg (153 lb) SpO2 96% BMI 30.39 kg/m Physical Exam Constitutional: Appearance: Normal appearance. HENT: Head: Normocephalic. Eyes: Conjunctiva/sclera: Conjunctivae normal. Cardiovascular: Rate and Rhythm: Normal rate and regular rhythm. Heart sounds: Normal heart sounds. Pulmonary: Effort: Pulmonary effort is normal. Breath sounds: Normal breath sounds. Musculoskeletal: Right lower leg: No edema. Left lower leg: No edema. Skin: General: Skin is warm and dry. Neurological: General: No focal deficit present. Mental Status: She is alert and oriented to person, place, and time. Psychiatric: Attention and Perception: Attention and perception normal. Mood and Affect: Affect normal. Mood is depressed. Speech: Speech normal. Behavior: Behavior normal. Thought Content: Thought content normal. Cognition and Memory: Cognition normal. Judgment: Judgment normal. Assessment and Plan Encounter Diagnosis ICD-10-CM 1. Acute midline thoracic back pain M54.6 Noted might have twisted wrong. Continue present management with current meds plus Tylenol. Further evaluation and treatment as needed 2. Chronic midline low back pain with left-sided sciatica M54.42 G89.29 Discussed desire to taper Lyrica since doing better since had stem cell therapy. Will taper as able 3. Anxiety F41.9 Controlled fairly well on current med (Xanax) at bedtime. Emotional support given. Continue present management 4. Recurrent major depressive disorder, in partial remission (HCC) F33.41 5. Essential hypertension I10 Noted metoprolol stopped by Dr. Young (cardiology). Monitor BP and discuss with him if BP stays high.Pain might be making run higher 6. Grief reaction F43.21 Stable with current med management 7. Encounter for immunization Z23 Above issues addressed with patient. Patient involved in shared decision making for management of medical issues. History and medications reviewed. Epic updated as needed Refills and/or prescriptions taken care of and meds adjusted as indicated after reviewed history, exam and labs. Health Maintenance reviewed. Updated record and/or ordered tests as recorded. Encouraged on efforts at healthy diet and regular exercise and adequate sleep. I spent a total of 42 minutes on the date of the service which included [id number] patient care, completing clinical documentation, performing a medically appropriate examination, counseling and educating the patient/family/caregiver, and ordering medications, tests, or procedures. Eunice Joe MD documented in this encounter [facility] 06-03-2023 Note Bladder Cancer [facility] 06-03-2023 Note Bladder Cancer [facility] 06-03-2023 Note Bladder Cancer [facility] 06-03-2023 Note Bladder Cancer [facility] 06-03-2023 Note Bladder Cancer [facility] 06-03-2023 Note Bladder Cancer [facility] 06-03-2023 Note Bladder [facility] 05-22-2023 Miscellaneous Notes Patient has been identified by name and date of : Yes, Provider Heath Date 05/22/23 Time 2:47 Patient phones for refill(s): Requested Prescriptions Pending Prescriptions Disp Refills citalopram (CELEXA) 40 mg tablet 90 tablet 3 Sig: Take 1 tablet by mouth once daily. Date of last office visit in primary care: 02/04/23 Last 2 Encounter Wt Readings: Date: Wt: 05/01/2023 68.9 kg (151 lb 12.8 oz) 03/25/2023 69.6 kg (153 lb 6.4 oz) Please advise. Thank you. Telma Key LPN documented in this encounter [facility] 05-12-2023 Miscellaneous Notes Patient has been identified by name and date of : Yes, Patient phones for refill(s): Requested Prescriptions Pending Prescriptions Disp Refills ALPRAZolam (XANAX) 0.5 mg tablet 60 tablet 1 Sig: Take 1 tablet by mouth twice daily for 60 days. For Anxiety and SOB related to throat/laryngospasm as directed Date of last office visit in primary care: 02/04/2023 6 month follow-up: 06/05/2023 Last 2 Encounter Wt Readings: Date: Wt: 05/01/2023 68.9 kg (151 lb 12.8 oz) 03/25/2023 69.6 kg (153 lb 6.4 oz) Previous labs/tests for medication: Not applicable Please advise. Thank you. Luz Rodriguez LPN documented in this encounter [facility] 04-29-2023 Note HNO ID: [id number] Author: Ruth Booth RT(R) Service: ? Author Type: Technologist Type: Progress Notes Filed: 04/29/2023 11:13 AM Note Text: Radiology Service Progress Note PATIENT NAME: Nella Benítez DATE OF SERVICE: April 29, 2023 TIME: 11:12 AM PATIENT IDENTITY VERIFICATION COMPLETED USING TWO (2) IDENTIFIERS: Name and Date of confirmed by patient verbally. FALL SCREENING: Has the patient had 2 falls in the last year or 1 fall with injury or currently using an Ambulatory Assistive Device (Walker, Cane, Wheelchair, Crutches, etc.)? No PATIENT GENDER DATA: Female. status: : No status: N/A PATIENT RELEVANT IMPLANT DATA REVIEWED: Not Applicable RADIOLOGY DEPARTMENT: General X-ray: Exam(s) Completed: Upper Extremity X-Ray(s): Hand, bilateral PERIPHERAL IV DATA: Not applicable SIGNED BY: RT Adelita(R) April 29, 2023 11:12 AM [facility] 04-29-2023 History of Presen t illness Narrative Images from the original note were not included. Reason for Visit/Chief Complaint Nella Benítez is a 72 year old female who presents today for a new evaluation of following complaint: Patient presents with: Left Hand - New, Pain Right Hand - New, Pain History of Present Illness: PAIN EVALUATION 04/29/2023 1118 Pain Level: 5 Pain Location: -- bilateral hands Description: Burning;Tingling;Numbness;Sore;A antonieta Duration Units: Years Frequency: Continuous Intervention/Comfort measure: -- previous cortisone injections, HPI: Nella Benítez is a 72 year old female presenting today with bilateral hand pain. Patient has been experiencing pain for years. She complains of numbness/tingling/burning in whole hand. No injury. Pain history is noted as above. Right worse than left Previous Treatments: Ice: Yes Heat: No Brace: No NSAIDs: Yes, PRN Injections: Yes, previously Surgeries: No Physical Therapy: No Review of Systems: Patient did not have, and does not currently have, any weight loss, malaise, fever, chills, headache, chest pain, chest pressure, palpitations, cough, shortness of breath, orthopnea, paroxsymal nocturnal dyspnea, nausea, vomiting, diarrhea, constipation, melena, hematochezia, urinary difficulties, prolonged bleeding, easily bruising, heat or cold intolerance, new onset joint pain or swelling, new onset extremity weakness or numbness, new onset auditory or visual disturbances, lightheadedness, dizziness, partial loss of consciousness or full loss of consciousness. Current Outpatient Medications on File Prior to Visit Medication Sig meloxicam (MOBIC) 15 mg tablet Take 1 tablet by mouth once daily. Take with food. tiZANidine (ZANAFLEX) 4 mg tablet Take 1 tablet by mouth twice daily as needed. buPROPion SR (ZYBAN SR; WELLBUTRIN SR) 150 mg 12 hr tablet Take 1 tablet by mouth once daily. As directed (filled 10/11/22 for taking twice daily and got 180 tablets) colestipol (COLESTID) 1 gram tablet Take 1-2 tablets by mouth once daily. around lunchtime. Wait at least 1 hour after other meds to take it. dicyclomine (BENTYL) 10 mg capsule Take 10 mg by mouth twice daily as needed. levothyroxine (SYNTHROID) 50 mcg tablet Take 1 tablet by mouth once daily. pregabalin (LYRICA) 75 mg capsule Take 1 capsule by mouth once daily for 180 days. (filled for twice daily but taking just once daily so will last till January) Cholecalciferol, Vitamin D3, 125 mcg (5,000 unit) cap Take 1 capsule by mouth once daily. pantoprazole DR (PROTONIX) 40 mg tablet Take 1 tablet by mouth twice daily. As directed citalopram (CELEXA) 40 mg tablet Take 1 tablet by mouth once daily. busPIRone (BUSPAR) 15 mg tablet Take 1.5 tablets by mouth twice daily. (Patient taking differently: Take 22.5 mg by mouth once daily.) metoprolol succinate ER (TOPROL XL) 25 mg 24 hr tablet Take 0.5 tablets by mouth daily at bedtime. Along with 25 mg dose calcium carbonate 600 mg-cholecalciferol 200 units (CALCIUM 600 + D,3,) 600 mg(1,500mg) -200 unit tab Take 1 tablet by mouth twice daily. Calcium viactive chewable acetaminophen (TYLENOL) 325 mg tablet Take 650 mg by mouth every 6 hours as needed. fexofenadine (ALVINA) 180 mg tablet Take 180 mg by mouth once daily. vancomycin (VANCOCIN) 125 mg capsule Take 1 capsule by mouth four times daily. (Patient not taking: Reported on 04/29/2023) ALPRAZolam (XANAX) 0.5 mg tablet Take 1 tablet by mouth twice daily for 60 days. For Anxiety and SOB related to throat/laryngospasm as directed No current facility-administered medications on file prior to visit. ALLERGIES Allergen Reactions Latex Rash, Itching Actonel [Risedronat* GI Upset Fosamax [Alendronat* GI Upset Physical Exam: Vitals: There were no vitals taken for this visit. Psych: Pleasant, good affect and mood General Appearance: Well appearing, alert, in no acute distress, well-hydrated, well nourished.. Skin: Skin color, texture, turgor normal, no suspicious rashes or lesions. Peripheral Pulses: Normal. Neurologic: Gait normal. Reflexes normal and symmetric. Sensation grossly intact.. Lymph Nodes: No cervical lymphadenopathy, No supraclavicular lymphadenopathy, No axillary lymphadenopathy., and No inguinal lymphadenopathy.. Respiratory: No recent pulmonary infection, hemoptysis, chronic cough, or shortness of breath at rest Rheumatologic: Joint deformities: bilateral hand pain Right Hand Exam Tenderness Right hand tenderness location: pos cmc grind. Range of Motion The patient has normal right wrist ROM. Wrist Extension: normal Flexion: normal Pronation: normal Supination: normal Muscle Strength The patient has normal right wrist strength. Senior Sales Consultant: 4/5 Tests Phalen s sign: positive Tinel's sign (median nerve): positive Lisa's test: negative Other Erythema: absent Sensation: decreased Pulse: present Comments: B/l uln/rad/ax nerves intact Left Hand Exam Range of Motion The patient has normal left wrist ROM. Wrist Extension: normal Flexion: normal Pronation: normal Supination: normal Muscle Strength The patient has normal left wrist strength. Senior Sales Consultant: 4/5 Tests Phalen s sign: positive Tinel's sign (median nerve): positive Lisa's test: negative Other Erythema: absent Sensation: decreased Pulse: present Comments: Dec med nerve distribution b/l Atrophy thumb distribution Imaging: Last XR Hand/Finger - Impression Only XR HAND GENERAL 3V PA/LAT/OBL BILATERAL Exam End: 04/29/2023 11:12 AM (In process) Last XR Wrist - Impression Only No resulted procedures found. osteopenia Assessment and Plan: Impression: Encounter Diagnosis ICD-10-CM 1. Bilateral carpal tunnel syndrome G56.03 EMG(NEURO/NI) 2. CMC arthritis M19.049 EMG(NEURO/NI) 3. Pseudogout M11.20 Plan: Today, in detail, through a thorough evaluation, we discussed possible etiologies of pain and our plans for further diagnostic and therapeutic interventions. We discussed strategies for decreasing pain and improving strength, stability and motion. Patient's questions were answered in detailed. Patient verbalizes understanding and agrees with the treatment plan as discussed. Emg Will do injections at follow up for pseudogout of ulnar abutment syndrome Patient aware and in agreement of plan. All questions answered. Katherine Pham D.O. M.P.HNathanael documented in this encounter [facility] 04-29-2023 History of Presen t illness Narrative Radiology Service Progress Note PATIENT NAME: Nella Benítez DATE OF SERVICE: April 29, 2023 TIME: 11:12 AM PATIENT IDENTITY VERIFICATION COMPLETED USING TWO (2) IDENTIFIERS: Name and Date of confirmed by patient verbally. FALL SCREENING: Has the patient had 2 falls in the last year or 1 fall with injury or currently using an Ambulatory Assistive Device (Walker, Cane, Wheelchair, Crutches, etc.)? No PATIENT GENDER DATA: Female. status: : No status: N/A PATIENT RELEVANT IMPLANT DATA REVIEWED: Not Applicable RADIOLOGY DEPARTMENT: General X-ray: Exam(s) Completed: Upper Extremity X-Ray(s): Hand, bilateral PERIPHERAL IV DATA: Not applicable SIGNED BY: RT Adelita(R) April 29, 2023 11:12 AM documented in this encounter [facility] 04-06-2023 Procedure note [facility] 04-06-2023 Procedure note [facility] 04-06-2023 Procedure note [facility] 04-06-2023 Procedure note [facility] 03-26-2023 Miscellaneous Notes Pt was notified of the results. Pt verbalized understanding. Katie Hope MA COVID-19, influenza A, and influenza B PCR test are negative. Continue supportive therapies as discussed during visit. Follow-up with PCP if symptoms are not improving. Fady Bhardwaj APRN.ISABELLA documented in this encounter [facility] 03-25-2023 Instructions JOSE Mckinney - 03/25/2023 4:24 PM EDT Rest, increase water intake Motrin or Tylenol as needed for fever or pain. Salt water gargles, chloraseptic spray or lozenges as needed for sore throat. Warm beverages, honey. Nasal saline spray as needed Cool mist humidifier at night A cold normally lasts 7-10 days. If your symptoms are lasting longer, develop fever, or worsening by that time instead of improving then return to clinic or follow up with PCP for re-evaluation. Tylenol (generic acetaminophen) 500 mg-2 tabs every 8 hrs. as needed for fever and aches Ibuprofen 600 mg (3-200mg tablets) every 6 hours -Mucinex (generic is fine) Guaifenesin 1200 mg twice daily to help with cough and to thin out mucus documented in this encounter [facility] 03-25-2023 History of Presen t illness Narrative This note was created using [employer]. Subjective Nella Benítez is a 72 year old female. HPI 72-year-old female presents for sore throat, headache, body aches, cough, chills x4-5 days. Patient states on Thursday she started not feeling well. She had a scratchy throat. She states over the past few days, she has developed a dry raspy cough. She also has been having some body aches and headaches. No fevers. No vomiting or diarrhea. No sick contacts. Has not done a home COVID test. 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 Toth) VAGINAL HYSTERECTOMY UTERUS 250 GM/< vaginal with bilateral oophorectomy ALLERGIES Latex, Actonel [Risedronate Sodium], and Fosamax [Alendronate Sodium] MEDICATIONS vancomycin (VANCOCIN) 125 mg capsule Take 1 capsule by mouth four times daily. colestipol (COLESTID) 1 gram tablet Take 1-2 tablets by mouth once daily. around lunchtime. Wait at least 1 hour after other meds to take it. dicyclomine (BENTYL) 10 mg capsule Take 10 mg by mouth twice daily as needed. levothyroxine (SYNTHROID) 50 mcg tablet Take 1 tablet by mouth once daily. ALPRAZolam (XANAX) 0.5 mg tablet Take 1 tablet by mouth twice daily for 60 days. For Anxiety and SOB related to throat/laryngospasm as directed pregabalin (LYRICA) 75 mg capsule Take 1 capsule by mouth once daily for 180 days. (filled for twice daily but taking just once daily so will last till January) Cholecalciferol, Vitamin D3, 125 mcg (5,000 unit) cap Take 1 capsule by mouth once daily. pantoprazole DR (PROTONIX) 40 mg tablet Take 1 tablet by mouth twice daily. As directed buPROPion SR (ZYBAN SR; WELLBUTRIN SR) 150 mg 12 hr tablet Take 1 tablet by mouth once daily. As directed (filled 10/11/22 for taking twice daily and got 180 tablets) citalopram (CELEXA) 40 mg tablet Take 1 tablet by mouth once daily. busPIRone (BUSPAR) 15 mg tablet Take 1.5 tablets by mouth twice daily. (Patient taking differently: Take 22.5 mg by mouth once daily.) meloxicam (MOBIC) 15 mg tablet Take 1 tablet by mouth once daily. Take with food. metoprolol succinate ER (TOPROL XL) 25 mg 24 hr tablet Take 0.5 tablets by mouth daily at bedtime. Along with 25 mg dose tiZANidine (ZANAFLEX) 4 mg tablet Take 1 tablet by mouth twice daily as needed. calcium carbonate 600 mg-cholecalciferol 200 units (CALCIUM 600 + D,3,) 600 mg(1,500mg) -200 unit tab Take 1 tablet by mouth twice daily. Calcium viactive chewable acetaminophen (TYLENOL) 325 mg tablet Take 650 mg by mouth every 6 hours as needed. fexofenadine (ALVINA) 180 mg tablet Take 180 mg by mouth once daily. FAMILY HISTORY Problem Relation Age of Onset other (hodgkins [Other]) Father Osteoporosis Mother Asthma Sister Asthma Sister Asthma Son Youngest Ischemic Heart Disease Mother 02/28/13, age 84. Social History Tobacco Use Smoking status: Never Smokeless tobacco: Never Tobacco comments: Father smoked in childhood home. Spouse non-smoker. Substance Use Topics Alcohol use: Yes Comment: Occasional, once or twice per month. Drug use: No Review of Systems Constitutional: Positive for chills. Negative for fever. HENT: Positive for congestion and sore throat. Negative for ear pain. Respiratory: Positive for cough. Negative for shortness of breath. Cardiovascular: Negative for chest pain. Gastrointestinal: Negative for diarrhea and vomiting. Musculoskeletal: Positive for myalgias. Objective BP 138/84 Pulse 92 Temp 37.2 C (98.9 F) (Tympanic) Resp 18 Wt 69.6 kg (153 lb 6.4 oz) SpO2 96% BMI 30.46 kg/m Physical Exam Vitals and nursing note reviewed. Constitutional: General: She is not in acute distress. Appearance: Normal appearance. She is not toxic-appearing. HENT: Right Ear: Tympanic membrane and ear canal normal. Left Ear: Tympanic membrane and ear canal normal. Nose: Nose normal. Mouth/Throat: Mouth: Mucous membranes are moist. Pharynx: Posterior oropharyngeal erythema present. No oropharyngeal exudate. Eyes: Conjunctiva/sclera: Conjunctivae normal. Cardiovascular: Rate and Rhythm: Normal rate and regular rhythm. Pulmonary: Effort: Pulmonary effort is normal. Breath sounds: Normal breath sounds. Neurological: Mental Status: She is alert. Assessment and Plan ASSESSMENT/PLAN: 1. URI, acute - ICD9: 465.9, ICD10: J06.9 (primary diagnosis) - Discussed viral etiology and rationale for treatment. - Symptomatic treatment with prn analgesia - Supportive care with fluids and rest - COVID WITH FLUA+B, ROUTINE -Out of window for Tamiflu and antiviral. 2. Sore throat - ICD9: 462, ICD10: J02.9 - suspect viral - Alere Strep Test negative, no culture pending - Discussed supportive care treatment with fluids, rest and analgesia. - STREP A MOLECULAR (POC) Diagnosis and treatment plan were discussed and questions were answered to the patient's satisfaction. Pt acknowledged understanding of concepts and follow up plan. Specific signs and symptoms that would indicate the need for higher level of care were discussed in detail warranting prompt ER evaluation. JOSE Mckinney documented in this encounter [facility] 02-25-2023 Miscellaneous Notes In review pt was seen 11/25/22. This was increased to twice daily due to symptoms. Called and reviewed with pt. She didn't recall this. She was told there are refills are the pharmacy. She can call them for the refill. Patient has been identified by name and date of : Yes, Provider HEATH Patient phones for refill(s): Requested Prescriptions Pending Prescriptions Disp Refills pantoprazole DR (PROTONIX) 40 mg tablet 180 tablet 3 Sig: Take 1 tablet by mouth twice daily. As directed BEFORE SENDING TO PHARMACY - patient is wanting to know why this medication was increased to twice daily. Please contact the patient to advise. Date of last office visit in primary care: 10/17/22 Last 2 Encounter Wt Readings: Date: Wt: 02/04/2023 67.6 kg (149 lb) 11/25/2022 67.7 kg (149 lb 3.2 oz) Previous labs/tests for medication: Not applicable Please advise. Thank you. Nneka Michaels documented in this encounter [facility] 02-10-2023 Hospital Discharg e instructions Patient Education 02/10/2023 18:50:43 1-SDS Discharge Instructions Template (07/2018) (CUSTOM) [facility] SAME DAY SURGERY DISCHARGE INSTRUCTIONS PLEASE FOLLOW THE INSTRUCTIONS BELOW MARKED WITH AN X: _x__ Regular Diet: Start with clear liquids, then soup and crackers and gradually add other foods. _x__ Drink extra fluids. ___ Special Diet Instructions: ___ ACTIVITY: _x__ Avoid stress to suture line. Since you have had an anesthetic, it would be advisable not to drive, drink alcohol, or make major decisions over the next 24 hours. You may require more rest tonight and tomorrow. ___ May resume regular activity as tolerated. ___ Restrict activity as follows: ___ ___ Walk Only ___ ___ Do not go up and down stairs. ___ Do not ride in car until ___ ___ Do not drive car. ___ Do not have sexual intercourse. _x__ No heavy lifting, pushing or straining. _x__ Other: _Follow Dr Shi's written and verbal discharge instructions.__ BATHING/SHOWERING: ___ Sponge bathe until office visit. ___ Sitting in tub of warm water may relieve discomfort. _x__ NO tub bathe _x__ May shower ___ On day after surgery sit in tub of warm water to soak off dressing. DRESSING: ___ Keep operative area dry and clean for ___ ___ Check the operative area for signs of bleeding. Apply pressure to the bleeding site if necessary and call your physician. ___ Change dressing as necessary using sterile dressing material or bandaid. ___ Reinforce dressing as necessary. ___ Change and care for wound as follows: ___ ___ Wear bra for ___ days following breast surgery for comfort. ___ Change drip pad as needed. ___ Wear scrotal support for comfort. WATCH FOR SIGNS OF INFECTION: (Usually appears 36-48 hours after surgery) Increased temperature (101 degrees Fahrenheit or higher) Redness or swelling Increased pain Foul odor or drainage. If you have any questions, please call your doctor at the number listed on your follow up instructions. Follow all instructions given to you by your physician. Please complete and return the survey you will be receiving in the mail to help us better serve our patients. Form: [id number]) R: 01/1802/10/2023 18:49:58 Transurethral Resection of Bladder Tumor Transurethral Resection of Bladder Tumor Transurethral resection of a bladder tumor is the removal (resection) of a cancerous growth (tumor) on the inside wall of the bladder. The bladder is the organ that holds urine. The tumor is removed through the tube that carries urine out of the body (urethra). In a transurethral resection, a thin telescope with a light, a tiny camera, and an electric cutting edge (resectoscope) is passed through the urethra. In men, the opening of the urethra is at the end of the penis. In women, it is just above the opening of the vagina. Tell a health care provider about: Any allergies you have. All medicines you are taking, including vitamins, herbs, eye drops, creams, and mpeu-eeu-spxjmqc medicines. Any problems you or family members have had with anesthetic medicines. Any blood disorders you have. Any surgeries you have had. Any medical conditions you have. Any recent urinary tract infections you have had. Whether you are or may be . What are the risks? Generally, this is a safe procedure. However, problems may occur, including: Infection. Bleeding. Allergic reactions to medicines. Damage to nearby structures or organs, such as: ?The urethra. ?The tubes that drain urine from the kidneys into the bladder (ureters). Pain and burning during urination. Difficulty urinating due to partial blockage of the urethra. Inability to urinate (urinary retention). What happens before the procedure? Staying hydrated Follow instructions from your health care provider about hydration, which may include: Up to 2 hours before the procedure you may continue to drink clear liquids, such as water, clear fruit juice, black coffee, and plain tea. Eating and drinking restrictions Follow instructions from your health care provider about eating and drinking, which may include: 8 hours before the procedure stop eating heavy meals or foods, such as meat, fried foods, or fatty foods. 6 hours before the procedure stop eating light meals or foods, such as toast or cereal. 6 hours before the procedure stop drinking milk or drinks that contain milk. 2 hours before the procedure stop drinking clear liquids. Medicines Ask your health care provider about: Changing or stopping your regular medicines. This is especially important if you are taking diabetes medicines or blood thinners. Taking medicines such as aspirin and ibuprofen. These medicines can thin your blood. Do not take these medicines unless your health care provider tells you to take them. Taking mzcx-qjl-knhqotn medicines, vitamins, herbs, and supplements. Tests You may have exams or tests, including: Physical exam. Blood tests. Urine tests. Electrocardiogram (ECG). This test measures the electrical activity of the heart. General instructions Plan to have someone take you home from the hospital or clinic. Ask your health care provider how your surgical site will be marked or identified. Ask your health care provider what steps will be taken to help prevent infection. These may include: ? Washing skin with a germ-killing soap. ? Taking antibiotic medicine. What happens during the procedure? An IV will be inserted into one of your veins. You will be given one or more of the following: ?A medicine to help you relax (sedative). ?A medicine to make you fall asleep (general anesthetic). ?A medicine that is injected into your spine to numb the area below and slightly above the injection site (spinal anesthetic). Your legs will be placed in foot rests (stirrups) so that your legs are apart and your knees are bent. The resectoscope will be passed through your urethra and into your bladder. The part of your bladder that is affected by the tumor will be resected using the cutting edge of the resectoscope. The resectoscope will be removed. A thin, flexible tube (catheter) will be passed through your urethra and into your bladder. The catheter will drain urine into a bag outside of your body. ?Fluid may be passed through the catheter to keep the catheter open. The procedure may vary among health care providers and hospitals. What happens after the procedure? Your blood pressure, heart rate, breathing rate, and blood oxygen level will be monitored until you leave the hospital or clinic. You may continue to receive fluids and medicines through an IV. You will have some pain. You will be given pain medicine to relieve pain. You will have a catheter to drain your urine. ?You will have blood in your urine. Your catheter may be kept in until your urine is clear. ?The amount of urine will be monitored. If necessary, your bladder may be rinsed out (irrigated) by passing fluid through your catheter. You will be encouraged to walk around as soon as possible. You may have to wear compression stockings. These stockings help to prevent blood clots and reduce swelling in your legs. Do not drive for 24 hours if you were given a sedative during your procedure. Summary Transurethral resection of a bladder tumor is the removal (resection) of a cancerous growth (tumor) on the inside wall of the bladder. To do this procedure, your health care provider uses a thin telescope with a light, a tiny camera, and an electric cutting edge (resectoscope). Follow your health care provider's instructions. You may need to stop or change certain medicines, and you may be told to stop eating and drinking several hours before the procedure. Your blood pressure, heart rate, breathing rate, and blood oxygen level will be monitored until you leave the hospital or clinic. You may have to wear compression stockings. These stockings help to prevent blood clots and reduce swelling in your legs. This information is not intended to replace advice given to you by your health care provider. Make sure you discuss any questions you have with your health care provider. Document Released: 07/25/2010 Document Revised: 04/29/2019 Document Reviewed: 04/29/2019 [employer] Patient Education 2020 [employer]. Follow Up Care 02/02/2023 10:41:11 With:FADY SHI MD, [facility] Address: [address] [place] [address] [address] [place] [address]- [phone] When: Unknown Comments:Call the office to schedule a follow up appointment if not already done. [facility] 02-10-2023 Summary of episod e note Discharge Instructions Thank you for allowing [facility] to assist you with your healthcare needs. The following is important discharge information regarding your hospital visit. Your Care Team EUNICE JOE MD What to do next Scheduled Follow-Up Appointments Appointment Type When With Where Contact InformationURO OV Post Op 03/02/2023 01:00 PM EDT FADY SHI MD [facility] Follow Up Appointments Follow Up with FADY SHI MD, [facility] When Why: Call the office to schedule a follow up appointment if not already done. Where: [address] [facility] [address] [place] [phone] The Following Activity and Diet Have Been Ordered for You Discharge Activity - Ordered -- Follow the post-operative/post-procedure activity instructions provided by your physician's office., 02/10/23 18:47:00 EDT Discharge Diet - Ordered -- Follow the post-operative/post-procedure diet instructions provided by your physician's office., 02/10/23 18:47:00 EDT The Following Equipment Has Been Ordered for You Discharge Home Equipment Discharge Wound Care - Ordered -- Follow the post-operative/post-procedure wound care instructions provided by your physician's office., 02/10/23 18:47:00 EDT The Following Treatments Have Been Ordered for You Discharge Labs No qualifying data available. Discharge Radiology No qualifying data available. Other Therapies No qualifying data available. Post Acute Orders No qualifying data available. Someone Will Contact You Regarding These Home Health Referrals No home referrals have been ordered for you. No one will call you. Allergies Latex (Sore throat) Medications Please ask your primary doctor or pharmacist before taking any other medication not listed, including over the counter drugs, herbal medications, vitamins and or supplements as they may interact with your home medications. What How Much When Instructions Last Dose Unchanged acetaminophen (Tylenol 8 Hour 650 mg oral tablet, extended release) 2 tab(s) by mouth Every 8 hours Unchanged ALPRAZolam (ALPRAZolam 0.5 mg oral tablet) 1 tab(s) by mouth Daily at bedtime Unchanged buPROPion (BuPROPion (Eqv-Wellbutrin SR) 150 mg/ 12 hours oral tablet, extended release) 1 tab(s) by mouth Two (2) times a day Unchanged busPIRone (busPIRone 15 mg oral tablet) 1 tab(s) by mouth Once a day (in the morning) Unchanged calcium carbonate (calcium carbonate 600 mg oral tablet, chewable) 2 tab(s) Chewed Once a day Unchanged citalopram (citalopram 40 mg oral tablet) 1 tab(s) by mouth Daily at bedtime Unchanged colestipol (colestipol 1 g oral tablet) 2 tab(s) by mouth Daily before lunch Unchanged dicyclomine (dicyclomine 10 mg oral capsule) 1 cap by mouth Four (4) times a day as needed for abdominal discomfort Unchanged fexofenadine (Alvina 24 Hour Allergy oral tablet) 1 tab(s) by mouth Every day as needed for for allergy symptoms Unchanged levothyroxine (levothyroxine 50 mcg (0.05 mg) oral tablet) 1 tab(s) by mouth Once a day (in the morning) Unchanged meloxicam (meloxicam 15 mg oral tablet) 1 tab(s) by mouth Once a day Unchanged metoprolol (Metoprolol Succinate ER 25 mg oral TABLET extended release) 0.5 tab(s) by mouth Daily at bedtime Do not crush or chew (controlled release) Unchanged pantoprazole (pantoprazole 40 mg oral enteric coated tablet) 1 tab(s) by mouth Daily at bedtime Unchanged pregabalin (pregabalin 75 mg oral capsule) 1 cap by mouth Daily at bedtime Unchanged tiZANidine (tiZANidine 4 mg oral tablet) 1 tab(s) by mouth Daily at bedtime Unchanged vancomycin (vancomycin 125 mg oral capsule) 1 cap by mouth Every 6 hours Please take this list to your next doctor s visit. Bring all medications you take, including over the counter medications, herbals and other supplements with you to your doctor s visit. Patients and families are reminded to discard old lists and to update any records with all medication providers or retail pharmacies. Education Materials [facility] SAME DAY SURGERY DISCHARGE INSTRUCTIONS PLEASE FOLLOW THE INSTRUCTIONS BELOW MARKED WITH AN X: _x__ Regular Diet: Start with clear liquids, then soup and crackers and gradually add other foods. _x__ Drink extra fluids. ___ Special Diet Instructions: ___ ACTIVITY: _x__ Avoid stress to suture line. Since you have had an anesthetic, it would be advisable not to drive, drink alcohol, or make major decisions over the next 24 hours. You may require more rest tonight and tomorrow. ___ May resume regular activity as tolerated. ___ Restrict activity as follows: ___ ___ Walk Only ___ ___ Do not go up and down stairs. ___ Do not ride in car until ___ ___ Do not drive car. ___ Do not have sexual intercourse. _x__ No heavy lifting, pushing or straining. _x__ Other: _Follow Dr Shi's written and verbal discharge instructions.__ BATHING/SHOWERING: ___ Sponge bathe until office visit. ___ Sitting in tub of warm water may relieve discomfort. _x__ NO tub bathe _x__ May shower ___ On day after surgery sit in tub of warm water to soak off dressing. DRESSING: ___ Keep operative area dry and clean for ___ ___ Check the operative area for signs of bleeding. Apply pressure to the bleeding site if necessary and call your physician. ___ Change dressing as necessary using sterile dressing material or bandaid. ___ Reinforce dressing as necessary. ___ Change and care for wound as follows: ___ ___ Wear bra for ___ days following breast surgery for comfort. ___ Change drip pad as needed. ___ Wear scrotal support for comfort. WATCH FOR SIGNS OF INFECTION: (Usually appears 36-48 hours after surgery) Increased temperature (101 degrees Fahrenheit or higher) Redness or swelling Increased pain Foul odor or drainage. If you have any questions, please call your doctor at the number listed on your follow up instructions. Follow all instructions given to you by your physician. Please complete and return the survey you will be receiving in the mail to help us better serve our patients. Form: [id number] ([id number]) R: 01/18 Transurethral Resection of Bladder Tumor Transurethral resection of a bladder tumor is the removal (resection) of a cancerous growth (tumor) on the inside wall of the bladder. The bladder is the organ that holds urine. The tumor is removed through the tube that carries urine out of the body (urethra). In a transurethral resection, a thin telescope with a light, a tiny camera, and an electric cutting edge (resectoscope) is passed through the urethra. In men, the opening of the urethra is at the end of the penis. In women, it is just above the opening of the vagina. Tell a health care provider about: Any allergies you have. All medicines you are taking, including vitamins, herbs, eye drops, creams, and zqau-lfu-xieapzf medicines. Any problems you or family members have had with anesthetic medicines. Any blood disorders you have. Any surgeries you have had. Any medical conditions you have. Any recent urinary tract infections you have had. Whether you are or may be . What are the risks? Generally, this is a safe procedure. However, problems may occur, including: Infection. Bleeding. Allergic reactions to medicines. Damage to nearby structures or organs, such as: ? The urethra. ? The tubes that drain urine from the kidneys into the bladder (ureters). Pain and burning during urination. Difficulty urinating due to partial blockage of the urethra. Inability to urinate (urinary retention). What happens before the procedure? Staying hydrated Follow instructions from your health care provider about hydration, which may include: Up to 2 hours before the procedure you may continue to drink clear liquids, such as water, clear fruit juice, black coffee, and plain tea. Eating and drinking restrictions Follow instructions from your health care provider about eating and drinking, which may include: 8 hours before the procedure stop eating heavy meals or foods, such as meat, fried foods, or fatty foods. 6 hours before the procedure stop eating light meals or foods, such as toast or cereal. 6 hours before the procedure stop drinking milk or drinks that contain milk. 2 hours before the procedure stop drinking clear liquids. Medicines Ask your health care provider about: Changing or stopping your regular medicines. This is especially important if you are taking diabetes medicines or blood thinners. Taking medicines such as aspirin and ibuprofen. These medicines can thin your blood. Do not take these medicines unless your health care provider tells you to take them. Taking ufbb-llg-utlbxgt medicines, vitamins, herbs, and supplements. Tests You may have exams or tests, including: Physical exam. Blood tests. Urine tests. Electrocardiogram (ECG). This test measures the electrical activity of the heart. General instructions Plan to have someone take you home from the hospital or clinic. Ask your health care provider how your surgical site will be marked or identified. Ask your health care provider what steps will be taken to help prevent infection. These may include: ? Washing skin with a germ-killing soap. ? Taking antibiotic medicine. What happens during the procedure? An IV will be inserted into one of your veins. You will be given one or more of the following: ? A medicine to help you relax (sedative). ? A medicine to make you fall asleep (general anesthetic). ? A medicine that is injected into your spine to numb the area below and slightly above the injection site (spinal anesthetic). Your legs will be placed in foot rests (stirrups) so that your legs are apart and your knees are bent. The resectoscope will be passed through your urethra and into your bladder. The part of your bladder that is affected by the tumor will be resected using the cutting edge of the resectoscope. The resectoscope will be removed. A thin, flexible tube (catheter) will be passed through your urethra and into your bladder. The catheter will drain urine into a bag outside of your body. ? Fluid may be passed through the catheter to keep the catheter open. The procedure may vary among health care providers and hospitals. What happens after the procedure? Your blood pressure, heart rate, breathing rate, and blood oxygen level will be monitored until you leave the hospital or clinic. You may continue to receive fluids and medicines through an IV. You will have some pain. You will be given pain medicine to relieve pain. You will have a catheter to drain your urine. ? You will have blood in your urine. Your catheter may be kept in until your urine is clear. ? The amount of urine will be monitored. If necessary, your bladder may be rinsed out (irrigated) by passing fluid through your catheter. You will be encouraged to walk around as soon as possible. You may have to wear compression stockings. These stockings help to prevent blood clots and reduce swelling in your legs. Do not drive for 24 hours if you were given a sedative during your procedure. Summary Transurethral resection of a bladder tumor is the removal (resection) of a cancerous growth (tumor) on the inside wall of the bladder. To do this procedure, your health care provider uses a thin telescope with a light, a tiny camera, and an electric cutting edge (resectoscope). Follow your health care provider's instructions. You may need to stop or change certain medicines, and you may be told to stop eating and drinking several hours before the procedure. Your blood pressure, heart rate, breathing rate, and blood oxygen level will be monitored until you leave the hospital or clinic. You may have to wear compression stockings. These stockings help to prevent blood clots and reduce swelling in your legs. This information is not intended to replace advice given to you by your health care provider. Make sure you discuss any questions you have with your health care provider. Document Released: 07/25/2010 Document Revised: 04/29/2019 Document Reviewed: 04/29/2019 Elsevier Patient Education 2020 [employer]. Additional Information VACCINATE! IT SAVES LIVES! Members of the community who have not yet received the COVID-19 vaccine and would like to receive it can visit one of [facility] vaccine clinics. There are many vaccine clinic locations within the [facility]. For locations and available times, please visit https://gettheshot.coronavirus.[place].gov/. It is important to note that some COVID mobile vaccine clinics are held outdoors and may be canceled in rainy or stormy conditions. To learn more about pediatric vaccinations (ages 5-11), we invite you to visit the [facility] webpage. https://www.[facility].org/p ages/2034-Qbgjd-Kptpxkhoyxb-Freq adytpi-Fsqxy-Cqdxbjtzl.html To learn more about the COVID-19 vaccine, we invite you to visit the CDC website for a list of frequently asked questions. https://www.cdc.gov/coronavirus/ 2019-ncov/vaccines/faq.html [facility] Patient Portal Access Instructions: Stay connected with your healthcare team and access your personal medical information anytime with the [facility] Patient Portal.If you would like a full copy of your medical records, please contact the [facility] Medical Records Department, Thursday through Thursday between 8a.m. and 4:30p.m. Please follow the directions below to access the portal: 1.Access the email account you provided upon registration to the [facility].2.Look for an invitation email from [facility].3.Open the email and access the invitation link: Accept Invitation to [facility]4.Fill in the required aguillon to create your account. Sign into [email or web address] with your username and password that you created in the above steps to stay up to date. You can then view a summary of results, a summary of your visits, and the ability to download your summaries to your computer or send the information securely to a physician. Remember that your healthcare information is confidential, so carefully consider who you will allow to register on the [email or web address] Patient Portal for access to your information. You can also access the [email or web address] Patient Portal on the [employer] felisa. Simply click on "Health Records" under "Health Data" and then click on the [employer] logo. HOW TO SAFELY DISPOSE OF PRESCRIPTION MEDICATIONS Please use one of the following methods to safely dispose of your unused medications. 1.Use a drug disposal kit: the drug disposal pouch allows you to safely discard your old and unused drugs. Ask your nurse to give you one when you are discharged.2.Visit a local take-back location: Many local pharmacies and police departments have programs that collect old and unwanted prescription drugs. Call your local pharmacy or go to [email or web address]/7N0Qb8q to find one close to you.3.Make use of household items: Use cat litter or old coffee grounds to dispose medications if other options are not available. Mix your drugs with these household products, seal them in an airtight container and throw it into the garbage. Call [facility]: [phone] to be sure your drugs can be disposed of in this way. Some medicines may require a different approach.4.Never flush your medications down the toilet. IF YOU HAVE BEEN PRESCRIBED AN OPIOID FOR PAIN If you have been prescribed an opioid (such as hydrocodone, oxycodone or morphine), it is critical to understand the possible side effects and risks of opioid pain medications. Even when taken as directed, opioids can have several side effects including: Tolerance, meaning you might need to take more of a medication for the same pain relief. Nausea, vomiting and/or constipation. Sleepiness, dizziness, dry mouth, confusion, depression or itching. Physical dependence, meaning you have withdrawal symptoms when a medication is stopped, can develop within a few days. KNOW YOUR RESPONSIBILITIES It is important to know exactly how much and how often to take the opioid pain medications you are prescribed. Never take opioids in higher amounts or more often than prescribed. Do not combine opioids with alcohol or other drugs that cause drowsiness, such as benzodiazepines, also known as benzos, including diazepam and alprazolam, muscle relaxants or sleep aids. Never sell or share prescription opioids. This is illegal. Store opioids in a secure place and out of reach of others (including children, family, friends and visitors). The last page of this document has been signed and retained as a CHART COPY. Signatures Patient Education Materials 1-SDS Discharge Instructions Template (07/2018) (CUSTOM) Transurethral Resection of Bladder Tumor Medication Leaflets My discharge plan and instructions have been reviewed and explained to me and I,NELLA BENÍTEZ understand my current condition and have read and understand these discharge instructions. I have received a written copy of the plan/instructions. If I have questions, I am aware that I should contact my doctor. 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 Family's history: negative. History of Present Illness Please refer to most recent H and P / daily progress note / consultation note for further details GERD (on pantoprazole, has symptoms a couple times per week), back pain, bladder mass, C. difficile (being treated with vancomycin), diverticulosis, hypertension, hyperlipidemia, IBS, left medullary sponge kidney, SVT (follows with cardiology), atrial tachycardia status post successful ablation 08/07/2021, postural dizziness, and seasonal allergies. Review of Systems Denies respiratory issues, no inhaler use or O2 use hx of svt sp abaltion patient states she is active goes for walks / exercises frequently does not climb very many stairs however denies angianl sytmpoms likely near 4 mets Hx of GERD, well controlled, no symptoms today HTN HLD takes nsaid stopped accordingly Otherwise patient denies any major bleeding/blood clotting disorder, neurolgoical disorder hypothyrodism takes synthroid Health Status Allergies: Allergic Reactions (Selected) Severity Not Documented Latex- Sore throat., Allergies (1) ActiveReaction LatexSore throat Current medications: (Selected) Inpatient Medications Ordered Kefzol: 2 gram(s), 20 mL, 240 mL/hr, IV Push (INT), PREOP pharm LR 1,000 mL: 20 mL/hr, Intravenous Transderm-Scop 1 mg/72 hr transdermal film, extended release: 1 patch(es), Transdermal, q72h gemcitabine INTRAVESICAL: 1,000 mg, 26.3 mL, 0 mL/hr, Intravesical (INT), PREOP pharm gemcitabine INTRAVESICAL: 1,000 mg, 26.3 mL, 0 mL/hr, Intravesical (INT), PREOP pharm lidocaine 1% preservative-free injectable solution: 2.5 mg, 0.25 mL, Intradermal, prep pharm scopolamine (Transderm-Scop Patch REMOVAL): 1 EA, Miscellaneous, Once scopolamine (Transderm-Scop Patch REMOVAL): 1 EA, Miscellaneous, q72h Documented Medications Documented ALPRAZolam 0.5 mg oral tablet: 0.5 mg, 1 tab(s), Oral, qHS, 0 Refill(s) Alvina 24 Hour Allergy oral tablet: 180 mg, 1 tab(s), Oral, Daily, PRN: for allergy symptoms BuPROPion (Eqv-Wellbutrin SR) 150 mg/12 hours oral tablet, extended release: 150 mg, 1 tab(s), Oral, BID Metoprolol Succinate ER 25 mg oral TABLET extended release: 12.5 mg, 0.5 tab(s), Oral, qHS, Do not crush or chew (controlled release) Tylenol 8 Hour 650 mg oral tablet, extended release: 1,300 mg, 2 tab(s), Oral, q8h, 0 Refill(s) busPIRone 15 mg oral tablet: 15 mg, 1 tab(s), Oral, qAM, 0 Refill(s) calcium carbonate 600 mg oral tablet, chewable: 1,200 mg, 2 tab(s), Chewed, qDay, 0 Refill(s) citalopram 40 mg oral tablet: 40 mg, 1 tab(s), Oral, qHS, 30 tab(s), 0 Refill(s) colestipol 1 g oral tablet: 2 gram(s), 2 tab(s), Oral, acLunch dicyclomine 10 mg oral capsule: 10 mg, 1 cap(s), Oral, QID, PRN: abdominal discomfort levothyroxine 50 mcg (0.05 mg) oral tablet: 50 mcg, 1 tab(s), Oral, qAM meloxicam 15 mg oral tablet: 15 mg, 1 tab(s), Oral, qDay, 0 Refill(s) pantoprazole 40 mg oral enteric coated tablet: 40 mg, 1 tab(s), Oral, qHS pregabalin 75 mg oral capsule: 75 mg, 1 cap(s), Oral, qHS tiZANidine 4 mg oral tablet: 4 mg, 1 tab(s), Oral, qHS vancomycin 125 mg oral capsule: 125 mg, 1 cap(s), Oral, q6h, Medications (8) Active Scheduled: (7) ceFAZolin syringe 2 gram(s) 20 mL, IV Push (INT), PREOP pharm gemcitabine 1,000 mg 26.3 mL, Intravesical (INT), PREOP pharm gemcitabine 1,000 mg 26.3 mL, Intravesical (INT), PREOP pharm lidocaine 1% (MPF) 2 mL vial pf 2.5 mg 0.25 mL, Intradermal, prep pharm scopolamine 1.5 mg (1 mg / 72 hours patch) 1 patch(es), Transdermal, q72h Transderm-Scop patch REMOVAL 1 EA, Miscellaneous, q72h Transderm-Scop patch REMOVAL 1 EA, Miscellaneous, Once Continuous: (1) Lactated Ringers 1,000 mL 1,000 mL, Intravenous, 20 mL/hr PRN: (0) Problem list: Medical Anxiety / SNOMED CT 96702659 / Confirmed Back pain / SNOMED CT 3050603057 / Confirmed Clostridioides difficile carrier / SNOMED CT 1970251311 / Confirmed Clostridium difficile diarrhea / SNOMED CT 3270792893 / Confirmed Degenerative disc disease / SNOMED CT 298198792 / Confirmed Generalized osteoarthritis / SNOMED CT 228948628 / Confirmed Depression / SNOMED CT 274135690 / Confirmed Diverticulosis / SNOMED CT 8957316628 / Confirmed Essential hypertension / SNOMED CT 76405973 / Confirmed Fibromyalgia / SNOMED CT 883133361 / Confirmed Acid reflux / SNOMED CT 575885217 / Confirmed History of stem cell transplant / SNOMED CT 978236067 / Confirmed Hiatal hernia / SNOMED CT 939498421 / Confirmed Hypercholesterolemia / SNOMED CT 15147605 / Confirmed Hypothyroidism / SNOMED CT 46952533 / Confirmed Irritable bowel syndrome / SNOMED CT 73661765 / Confirmed Bladder mass / SNOMED CT 1969232253 / Confirmed Medullary sponge kidney / SNOMED CT 393160502 / Confirmed Osteoporosis / SNOMED CT 542389766 / Confirmed Parathyroid / SNOMED CT 8073080 / Confirmed Paroxysmal SVT (supraventricular tachycardia) / SNOMED CT 502411710 / Confirmed Postural dizziness / SNOMED CT 638708684 / Confirmed Seasonal allergy / SNOMED CT 0769929073 / Confirmed Lumbar spinal stenosis / SNOMED CT 11085911 / Confirmed Umbilical hernia / SNOMED CT 1301232263 / Confirmed, Active Problems (25) Acid reflux Anxiety Back pain Bladder mass Clostridioides difficile carrier Clostridium difficile diarrhea Degenerative disc disease Depression Diverticulosis Essential hypertension Fibromyalgia Generalized osteoarthritis Hiatal hernia History of stem cell transplant Hypercholesterolemia Hypothyroidism Irritable bowel syndrome Lumbar spinal stenosis Medullary sponge kidney Osteoporosis Parathyroid Paroxysmal SVT (supraventricular tachycardia) Postural dizziness Seasonal allergy Umbilical hernia Histories Past Medical History: Resolved Basal cell carcinoma (BCC) of face (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 Family History: Heart attack Mother HIV Son Hodgkin disease Father () Procedure history: Cystoscopy (06029381) in the month of 12/2022 at 72 Years. Ablation of atrioventricular node (6891083134) in 2020 at 71 Years. Hysterectomy (276741018). Oophorectomy (586247457). Comments: 02/04/2023 10:47 LYNETTE Yuen bilateral Appendectomy (998208887). Laminectomy and discectomy (6069061233). Bunionectomy (81942955). Anterior and posterior repair of vagina (31957317). Sling procedure of bladder neck (512174959). Total hip replacement (730787623). Comments: 02/04/2023 10:47 LYNETTE Yuen left Tendon repair by distal insertion (765907177). Cataract extraction and insertion of intraocular lens (6259463198). Comments: 02/04/2023 10:49 LYNETTE Yuen bilateral Social History Social & Psychosocial Habits Alcohol 02/04/2023 Use: Current Type: Wine Frequency: 1-2 times per year 02/04/2023Risk Assessment: No Risk Substance Abuse 02/04/2023 Use: Never 02/04/2023Risk Assessment: Denies Substance Abuse Tobacco 02/02/2023 Tobacco Use: Never (less than 100 in l 02/04/2023Risk Assessment: Denies Tobacco Use Home/Environment 02/04/2023 Domestic Concerns None Living situation: Home/Independent Current Home Treatments None Special Services and Community Resources None Marital Status of Patient if Patient Independent Adult: . Physical Examination Vital Signs 02/10/2023 11:57 EDT Temperature Temporal Artery 36.1 DegC Peripheral Pulse Rate 64 bpm Respiratory Rate 16 br/min Systolic Blood Pressure Non-Invasive 135 mmHg Diastolic Blood Pressure Non-Invasive 70 mmHg Vital Signs(last 24 hrs) Last Charted Resp Rate 16 br/min (FEBRUARY 10 11:57) PMW176 mmHg (FEBRUARY 10 11:57) DBP70 mmHg (FEBRUARY 10 11:57) Measurements from flowsheet : Measurements 02/10/2023 11:57 EDT Height 149.9 cm Height in inches 59 inch(es) Admission Weight 66.6 kg Weight Lbs 146.5 lb [place] Body Weight 43.24 kg Type of Scale Used Bed scale Admission Body Mass Index 29.64 m2 Pain assessment: Pain Assessment 02/10/2023 11:57 EDT Primary Pain Location Generalized Primary Pain Intensity 6 Pain Scale Type 0-10 Pain scale . General: Alert and oriented. Airway: Mallampati classification: I (soft palate, fauces, uvula, pillars visible). Dentition Evaluation: Own teeth, Denies loose/chipped teeth. Respiratory: Respirations are non-labored. Neurologic: Alert, Oriented. Review / Management Results review: No qualifying data available , Lab results 02/10/2023 14:10 EDT Main OR Same Day (Pre & Post) Record Main OR Same Day (Pre & Post) Record 02/10/2023 12:16 EDT Forearm Left 02/10/2023 20 gauge Peripheral IV Activity: Insert new site Peripheral IV Site Condition: No complications Peripheral IV Number of Attempts: 1 SN - Preop - CTm Pt Ready for OR/Proced 02/10/2023 12:15 02/10/2023 12:15 EDT Lactated Ringers Injection Begin Bag 1,000 mL mL 02/10/2023 12:02 EDT scopolamine 1 patch(es) patch(es) 02/10/2023 12:00 EDT Individuals Taught Patient, Spouse Learning Readiness Willing to learn Barriers to Learning None evident Teaching Method Explanation Preferred Written Language Cambodian Family/Caregiver Prefer Written Language Cambodian Preferred Spoken Language Cambodian Family/Caregiver Prefer Spoken Language Cambodian General Infection Prevention Strategies Hand hygiene Surgical Site Infection Prevention SSI FAQ provided Infection Prevention Teaching Evaluation Verbalizes/Nonverbally indicates understanding Pre Procedure/Surgery Education Appropriate expectations Procedure/Surgical Teaching Evaluation Verbalizes/Nonverbally indicates understanding Ed-Infection Signs/Symptoms Verbalizes/Nonverbally indicates understanding 02/10/2023 11:57 EDT Height 149.9 cm Height in inches 59 inch(es) Admission Weight 66.6 kg Weight Lbs 146.5 lb [place] Body Weight 43.24 kg Type of Scale Used Bed scale Admission Body Mass Index 29.64 m2 Temperature Temporal Artery 36.1 DegC Peripheral Pulse Rate 64 bpm Respiratory Rate 16 br/min Systolic Blood Pressure Non-Invasive 135 mmHg Diastolic Blood Pressure Non-Invasive 70 mmHg Primary Pain Location Generalized Primary Pain Intensity 6 Pain Scale Type 0-10 Pain scale Heart Rhythm Regular Respirations Unlabored Respiratory Pattern Regular [place] Lobes Breath Sounds Clear Oxygen Therapy Room air Oxygen Saturation 97 % Abdomen Description Non-distended Skin Temperature Warm Skin Description [place], Dry Level of Consciousness Alert Violence Risk Confused No Violence Risk Irritable No Violence Risk Boisterous No Violence Risk Verbal Threats No Violence Risk Physical Threats No Violence Risk Attacking Objects No Violence Risk Predictor Score 0 Affect/Behavior Calm Orientation Oriented x 4 Allergies Yes Consent Form Signed Yes Patient Dressed In Hospital gown CHG Preoperative Wash/Wipe Not done Non-CHG Preoperative Shampoo Not applicable Preop Nasal Swab Not done CHG Skin Prep No History & Physical On Chart Yes Obstructive Sleep Apnea Assess Completed Yes MRSA/MSSA Protocol No NPO Status Maintained Standard Safety ID band on, Allergy Band on, Call device within reach, Bed in low position, Wheels locked Allergy Band on and Verified Yes Patient ID Band on and Verified Yes Implants Verified Yes Pacemaker/AICD Verified Yes Last Fluid Intake 02/09/2023 21:30 Last Food Intake 02/09/2023 21:30 Last Void 02/10/2023 12:00 02/10/2023 11:49 EDT Safety Brochure Information Reviewed Yes Eliseo Sherman Video Viewed No Teaching Evaluation Verbalizes/Nonverbally indicates understanding Admission Note-Nursing Same Day Patient History (Modified) 02/10/2023 11:48 EDT SN - Preop - CTm Pt in SDS Room 02/10/2023 11:48 02/09/2023 13:15 EDT Urology Phone Message Surgery (Modified) 02/09/2023 13:00 EDT Surgery Scheduled On Date/Time 02/10/2023 13:35 Arrival Time the Day of Surgery 02/10/2023 11:35 Patient Aware of Arrival Time Yes Pre-Op Patient Education NPO after midnight, No smoking after midnight, No makeup, No jewelry, Responsible Libertarian, Aware of surgery location, Pre-op education done, Instructed to take ordered medications, Instructed to bring home medications SN - Preprocedure Comments Spoke with patient, Verbalizes/Nonverbally indicates understanding Admission Note-Nursing Date\\Time Correction 02/09/2023 0:00 EDT Medical/Surgical Clearance Scanned Medical/Surgical Clearance Scanned . Assessment and Plan [employer] (ASA) physical status classification: Class III. Anesthetic Preoperative Plan Premedication: intravenous. Anesthetic technique: General. Induction: intravenously. Maintenance airway: Oral endotracheal tube. Postoperative pain management: Per surgeon. Risks discussed: nausea, vomiting, headache, sore throat, dental injury, hypotension, allergic reaction, serious complications. Informed consent: signed by patient. Notes: Extensive time was spent discussing with the patient the inherent risks of anesthesia including but not limited too sore throat, dental injuries to teeth and gums, corneal abrasions, risk of heart attack, stroke, end organ dysfunction, and . The patient is aware of these risks, accepts them and wishes to proceed with anesthesia. GERD (on pantoprazole, has symptoms a couple times per week), back pain, bladder mass, C. difficile (being treated with vancomycin), diverticulosis, hypertension, hyperlipidemia, IBS, left medullary sponge kidney, SVT (follows with cardiology), atrial tachycardia status post successful ablation 08/07/2021, postural dizziness, and seasonal allergies. . Digitally Signed by FABIO KIM DO on 02/10/2023 04:02 PM Digitally Signed by FABIO KIM DO on 02/10/2023 04:02 PM [facility] 02-09-2023 Miscellaneous Notes Pre-op form has been faxed back. See addendum to OV, pt cleared, will send pre-op form back. EKG received. Have requested labs and EKG for pre-op testing. Need these prior to approval. Detailed message has been left for Urology explaining same. [facility] and patient's surgery is scheduled for tomorrow 02/10/2023. Aruna reports EKG report was faxed previously. Aruna asking for forms to be faxed to [phone]. Patsy Amaya, RN documented in this encounter [facility] 02-06-2023 Miscellaneous Notes Rec'd another pre op clearance form. Message left this am to [facility] to fax to Abner foster EKG she completed 02/04/23 with them. documented in this encounter [facility] 02-04-2023 History of Presen t illness Narrative SUBJECTIVE Nella Benítez is a 72 year old female here today for a pre-op appointment. Chief Complaint Patient presents with: Pre-Op Exam: [facility] for a cystoscopy transurethral resection of the bladder and tumor possible left stent instillation. HPI Nella Benítez is an 72 year old female presents to the office for pre-op examination. Is scheduled to have cystoscopy transurethral resection of bladder tumor with possible left stent installation done on 02/10/[address] Shi at [facility] in [place]. Planning for general anesthesia. History of having anesthesia: Yes. Any reaction from anesthesia in the past: No severe reactions, has had n/v, anesthesia is planning for use of a scopolamine patch. Personal or family history of heart disease: No. Plans for care after surgery: hoping for home same day but might need over night stay with stent placement. Chronic diseases controlled: Yes. Currently taking a blood thinner: meloxicam stopped today. History of having a blood transfusion: No. Patient denies chest pain, SOB, dizziness, palpitations, one sided weakness, dropping of face or mouth, fever, or recent sickness. No history of CVA or ME. Labs, EKG obtained with [facility] today. Dr. Young with cardiology at [facility] cleared her yesterday. Medical history significant for SVT with prior ablation, CKD stage 3, medullary sponge kidney, HTN, HLD, hypothyroid. Also on vancomycin per GI for possible c diff infection. Her medications were reviewed today and her list is now up to date. Medications Current Outpatient Medications Medication Sig vancomycin (VANCOCIN) 125 mg capsule Take 1 capsule by mouth four times daily. colestipol (COLESTID) 1 gram tablet Take 1-2 tablets by mouth once daily. around lunchtime. Wait at least 1 hour after other meds to take it. dicyclomine (BENTYL) 10 mg capsule Take 10 mg by mouth twice daily as needed. levothyroxine (SYNTHROID) 50 mcg tablet Take 1 tablet by mouth once daily. ALPRAZolam (XANAX) 0.5 mg tablet Take 1 tablet by mouth twice daily for 60 days. For Anxiety and SOB related to throat/laryngospasm as directed pregabalin (LYRICA) 75 mg capsule Take 1 capsule by mouth once daily for 180 days. (filled for twice daily but taking just once daily so will last till January) Cholecalciferol, Vitamin D3, 125 mcg (5,000 unit) cap Take 1 capsule by mouth once daily. pantoprazole DR (PROTONIX) 40 mg tablet Take 1 tablet by mouth twice daily. As directed buPROPion SR (ZYBAN SR; WELLBUTRIN SR) 150 mg 12 hr tablet Take 1 tablet by mouth once daily. As directed (filled 10/11/22 for taking twice daily and got 180 tablets) citalopram (CELEXA) 40 mg tablet Take 1 tablet by mouth once daily. busPIRone (BUSPAR) 15 mg tablet Take 1.5 tablets by mouth twice daily. (Patient taking differently: Take 22.5 mg by mouth once daily.) meloxicam (MOBIC) 15 mg tablet Take 1 tablet by mouth once daily. Take with food. metoprolol succinate ER (TOPROL XL) 25 mg 24 hr tablet Take 0.5 tablets by mouth daily at bedtime. Along with 25 mg dose tiZANidine (ZANAFLEX) 4 mg tablet Take 1 tablet by mouth twice daily as needed. calcium carbonate 600 mg-cholecalciferol 200 units (CALCIUM 600 + D,3,) 600 mg(1,500mg) -200 unit tab Take 1 tablet by mouth twice daily. Calcium viactive chewable acetaminophen (TYLENOL) 325 mg tablet Take 650 mg by mouth every 6 hours as needed. fexofenadine (ALVINA) 180 mg tablet Take 180 mg by mouth once daily. No current facility-administered medications for this visit. ALLERGIES Allergen Reactions Latex Rash, Itching Actonel [Risedronat* GI Upset Fosamax [Alendronat* GI Upset ACTIVE PROBLEM LIST Stage 3a Chronic Kidney Disease ([facility]) - 02/04/2023 Paroxysmal Svt (Supraventricular Tachycardia) ([facility]) - 02/04/2023 Essential Hypertension - 09/14/2021 Comment: Higher than usual today--attributed to persistent severe pain from comrpression fractures. 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 Hypothyroidism - 08/31/2013 Si (Sacroiliac) Joint Dysfunction - 11/03/2011 Diarrhea - 01/02/2010 Diverticulosis of Colon (Without Mention of Hemorrhage) - 01/02/2010 Internal Hemorrhoids Without Mention of Complication - 01/02/2010 External Hemorrhoids Without Mention of Complication - 01/02/2010 Medullary Sponge Kidney - 11/26/2009 Other Hyperlipidemia - 11/30/2007 Other Malaise and Fatigue - 09/08/2006 Secondary Hyperparathyroidism, Non-Renal (Hcc) - 04/10/2006 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 Spouse non-smoker. Substance Use Topics Alcohol use: Yes Comment: Occasional, once or twice per month. Drug use: No Review of Systems Constitutional: Negative. Eyes: Negative for visual disturbance. Respiratory: Negative for chest tightness and shortness of breath. Cardiovascular: Negative for chest pain, palpitations and leg swelling. Neurological: Negative for seizures, syncope, facial asymmetry and speech difficulty. OBJECTIVE BP 124/76 Pulse 82 Ht 4' 11.5" (1.51m) Wt 149 lb (67.6kg) SpO2 96% BMI 29.60 kg/(m^2). Physical Exam Vitals and nursing note reviewed. Constitutional: General: She is awake. She is not in acute distress. Appearance: She is well-developed and well-groomed. She is not ill-appearing, toxic-appearing or diaphoretic. HENT: Head: Normocephalic. Eyes: General: Vision grossly intact. Conjunctiva/sclera: Conjunctivae normal. Pupils: Pupils are equal, round, and reactive to light. Neck: Vascular: No carotid bruit or JVD. Cardiovascular: Rate and Rhythm: Normal rate and regular rhythm. Heart sounds: Normal heart sounds. No murmur heard. Pulmonary: Effort: Pulmonary effort is normal. No accessory muscle usage, prolonged expiration or respiratory distress. Breath sounds: Normal breath sounds. Musculoskeletal: Cervical back: Normal range of motion and neck supple. Skin: General: Skin is warm and dry. Capillary Refill: Capillary refill takes less than 2 seconds. Neurological: General: No focal deficit present. Mental Status: She is alert and oriented to person, place, and time. Mental status is at baseline. Cranial Nerves: No cranial nerve deficit. Sensory: No sensory deficit. Psychiatric: Attention and Perception: Attention and perception normal. Mood and Affect: Mood normal. Speech: Speech normal. Behavior: Behavior normal. Behavior is cooperative. Thought Content: Thought content normal. Judgment: Judgment normal. ASSESSMENT/PLAN: 1. Bladder tumor - ICD9: 239.4, ICD10: D49.4 (primary diagnosis) Scheduled to have cystoscopy transurethral resection of bladder tumor with possible left stent installation done on 02/10/[address] Shi at [facility] 2. Pre-op exam - ICD9: V72.84, ICD10: Z01.818 Based on physical exam done at today's visit, negative review of systems, negative history for heart disease, CVD, patient is cleared for surgery from a primary care standpoint as long as pending labs and EKG are stable and with out concerns/issues. Planning to proceed with planned procedure at the discretion of the performing provider once labs and EKG resulted and reviewed. 3. Essential hypertension - ICD9: 401.9, ICD10: I10 - good control - Continue current medication(s) - Encouraged dietary sodium restriction/DASH diet - Recommended regular aerobic exercise. - Recommend home blood pressure monitoring, to bring results in on next visit - Reviewed risks of HTN and principles of treatment 4. Other hyperlipidemia - ICD9: 272.4, ICD10: E78.49 Stable 5. Medullary sponge kidney - ICD9: 753.17, ICD10: Q61.5 Stable 6. Acquired hypothyroidism - ICD9: 244.9, ICD10: E03.9 Stable 7. Stage 3a chronic kidney disease (HCC) - ICD9: 585.3, ICD10: N18.31 Stable, labs from [facility] 01/28/2023 with creatinine 1.15, eGFR 49 h/h stable 8. Paroxysmal SVT (supraventricular tachycardia) (HCC) - ICD9: 427.0, ICD10: I47.1 Cleared by cardiology yesterday. 9. Clostridium difficile infection - ICD9: 041.84, ICD10: A49.8 Anesthesia and surgeon aware she is being treated for a possible c diff infection by GI Portions of this note have been entered by ancillary staff. I have reviewed and when necessary edited, so that they are an adequate record of my encounter with this patient Please note that parts of this document were created using voice recognition software and therefore may contain grammatical errors. Patient verbalizes understanding of instructions from today's visit and in agreement with treatment plan. Questions answered. Agrees to call the office if questions, concerns of issues with acute symptoms not improving or if they worsen. See diagnoses and orders for additional plan(s). Allergies and medications were reviewed, list was updated, and refills given if needed. Past medical, surgical, social, and family history reviewed and updated as appropriate. Encouraged proper diet & exercise as well as compliance with taking medications. Age-appropriate health preventative measures were discussed. Return if symptoms worsen or fail to improve, for Keep next scheduled appointment.. PANFILO Irizarry documented in this encounter [facility] 02-02-2023 Miscellaneous Notes PATIENT NOTIFIED OF SAME. Scheduled 02/04/23 with Abner Denny. Patient needs a pre-op clearance appointment for this week with or Aminta or someone else in Internal Med depending on schedules. She is scheduled for a surgery date with [facility] of 02/10/2023 and we have her pre-op form that needs completed and signed off. documented in this encounter [facility] 01-30-2023 Miscellaneous Notes Last office visit: 11/25/22 Next appointment scheduled: 06/05/23 Last labs: 01/28/23 external labs Patient phones requesting refills as follows: Requested Prescriptions Pending Prescriptions Disp Refills Cholecalciferol, Vitamin D3, 125 mcg (5,000 unit) cap 90 capsule 3 Sig: Take 1 capsule by mouth once daily. Please review and advise. Cynthia Alanis LPN documented in this encounter [facility] 12-12-2022 Instructions Abner Denny APRN.CNP - 12/12/2022 12:56 PM EST BONE MINERAL DENSITY PATIENT INSTRUCTIONS ========= Bone mineral density testing measures the amount [...] you can resume your usual activities immediately. documented in this encounter [facility] 12-12-2022 Miscellaneous Notes Dexa scan order placed, please fax to [facility] and let patient know once sent. Thanks!! documented in this encounter [facility] 11-25-2022 Instructions Eunice Joe MD - 11/25/2022 4:35 PM EST May try sodium alginate after meals to help with reflux. Can get plain sodium alginate or find Gaviscon with sodium alginate. documented in this encounter [facility] 11-25-2022 History of Presen t illness Narrative This note was created using [employer]. Subjective Nella Benítez is a 72 year old female. Patient presents with: ED Follow-up: [facility] 11/19/2022 SUBJECTIVE: Nella Benítez is a 72 year old year old lady here today for ER (11/19/22) follow up appointment for review of medical conditions. Ongoing diarrhea--not every day. 4 to 5 days per week. Imodium as needed. Had near syncopal episode after 4 days of diarrhea. BP not registering on her home BP cuff. Went to ER. BP there was 83/51. Took 2 liters IVF to get BP up to 120s. BP since then has been 117 at lowest up to 170 with most in the 140 t o150s range. HR in 60s most of the time, 138 to 168 today. Still with reflux despite the PPI. Waiting for appointment with Dr. Avina in January. Will see Dr. Guzman for findings on CT scan in bladder. Had anemia on labs at [facility]. Noted pain came back after increased activity after felt better after stem cell shots gave relief for 2 week.. No melena. Dark stools from Peptobismol noted but not tarry and sticky. 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 Nontoxic multinodular goiter Persistent disorder of initiating or maintaining sleep 06/30/2005 Senile osteoporosis Current Outpatient Medications Medication Sig ALPRAZolam (XANAX) 0.5 mg tablet Take 1 tablet by mouth twice daily for 60 days. For Anxiety and SOB related to throat/laryngospasm as directed pregabalin (LYRICA) 75 mg capsule Take 1 capsule by mouth once daily for 180 days. (filled for twice daily but taking just once daily so will last till January) pantoprazole DR (PROTONIX) 40 mg tablet Take 1 tablet by mouth once daily. buPROPion SR (ZYBAN SR; WELLBUTRIN SR) 150 mg 12 hr tablet Take 1 tablet by mouth once daily. As directed (filled 10/11/22 for taking twice daily and got 180 tablets) citalopram (CELEXA) 40 mg tablet Take 1 tablet by mouth once daily. busPIRone (BUSPAR) 15 mg tablet Take 1.5 tablets by mouth twice daily. (Patient taking differently: Take 22.5 mg by mouth once daily.) Cholecalciferol, Vitamin D3, 125 mcg (5,000 unit) cap Take 1 capsule by mouth once daily. levothyroxine (SYNTHROID) 50 mcg tablet Take 1 tablet by mouth once daily. meloxicam (MOBIC) 15 mg tablet Take 1 tablet by mouth once daily. Take with food. metoprolol succinate ER (TOPROL XL) 25 mg 24 hr tablet Take 0.5 tablets by mouth daily at bedtime. Along with 25 mg dose tiZANidine (ZANAFLEX) 4 mg tablet Take 1 tablet by mouth twice daily as needed. calcium carbonate 600 mg-cholecalciferol 200 units (CALCIUM 600 + D,3,) 600 mg(1,500mg) -200 unit tab Take 1 tablet by mouth twice daily. Calcium viactive chewable acetaminophen (TYLENOL) 325 mg tablet Take 650 mg by mouth every 6 hours as needed. fexofenadine (ALVINA) 180 mg tablet Take 180 mg by mouth once daily. HYDROcodone-acetaminophen (NORCO) 5-325 mg per tablet Take 1 tablet by mouth every 6 hours as needed. (Patient not taking: Reported on 11/25/2022) No current facility-administered medications for this visit. Review of Systems Objective BP 124/78 Pulse 82 Temp 36.9 C (98.5 F) Resp 18 Wt 67.7 kg (149 lb 3.2 oz) SpO2 97% BMI 29.14 kg/m Last 5 Encounter Wt Readings: Date: Wt: 11/25/2022 67.7 kg (149 lb 3.2 oz) 10/17/2022 67.6 kg (149 lb) 05/30/2022 70.5 kg (155 lb 6.4 oz) 05/06/2022 70.3 kg (155 lb) 03/29/2022 0 kg () No waist measurement recorded Estimated body mass index is 29.14 kg/m as calculated from the following: Height as of 05/30/22: 152.4 cm (5'). Weight as of this encounter: 67.7 kg (149 lb 3.2 oz). Last 5 Encounter BP Readings: Date: BP: 11/25/2022 124/78 10/17/2022 120/80 05/06/2022 116/68 03/29/2022 100/52 02/12/2022 149/85 Physical Exam Constitutional: Appearance: Normal appearance. HENT: Head: Normocephalic. Eyes: Conjunctiva/sclera: Conjunctivae normal. Cardiovascular: Rate and Rhythm: Normal rate and regular rhythm. Heart sounds: Normal heart sounds. Pulmonary: Effort: Pulmonary effort is normal. Breath sounds: Normal breath sounds. Skin: General: Skin is warm and dry. Neurological: General: No focal deficit present. Mental Status: She is alert and oriented to person, place, and time. Psychiatric: Mood and Affect: Mood normal. Behavior: Behavior normal. Thought Content: Thought content normal. Judgment: Judgment normal. Assessment and Plan Encounter Diagnosis ICD-10-CM 1. Near syncope R55 2. Gastroesophageal reflux disease, unspecified whether esophagitis present K21.9 3. Diarrhea, unspecified type R19.7 4. Anemia, unspecified type D64.9 5. Chronic midline low back pain without sciatica M54.50 G89.29 Above issues addressed with patient. Reviewed history and records from [facility] ER evaluation. Continue present meds. Will see GI as discussed. Noted pain recurred after initial improvement after stem cell treatment. Further evaluation and treatment as indicated. Patient involved in shared decision making for management of medical issues. History and medications reviewed. Epic updated as needed Refills and/or prescriptions taken care of and meds adjusted as indicated after reviewed history, exam and labs. Health Maintenance reviewed. Updated record and/or ordered tests as recorded. Encouraged on efforts at healthy diet and regular exercise and adequate sleep. I spent a total of 36 minutes on the date of the service which included [id number] patient care, completing clinical documentation, obtaining and/or reviewing separately obtained history, performing a medically appropriate examination, and counseling and educating the patient/family/caregiver. Eunice Joe MD documented in this encounter [facility] 11-20-2022 Discharge summary Note Date/Time November 19, 2022 10:49pm [facility] Medical Records Department [address] [place] [address] Emergency Department Summary 11/19/22 MR#: [id number] Acct: [id number] Name: NELLA BENÍTEZ Rep #:[id number] 31 : 1950 72 From: Tanya Aceves MD PCP: Dr. Eunice Joe MD Status:DE P ER Location: ED HPI History of Present Illness Chief Complaint: Hypotension Informant: patient and spouse/S.O. Onset/Context/Timing Onset: Today Narrative Narrative: Patient presents secondary low blood pressure and dizziness. She states she wasfeeling lightheaded and dizzy at home. She tried to check her blood pressure but the machine errored and would not read. She states her systolic blood pressure usually runs in the 130s. She is currently on 12.5 mg of metoprolol atbedtime. There has been no recent changes to her medication and she did take itthis evening. She states that she did get some abdominal cramping after eating a fish sandwich for dinner and did have some diarrhea. She is not sure if she is just dehydrated. She states she has had low blood pressure the past [facility], but does not feel as if her heart is racing at this time. [facility] Medical History Acute right flank pain Allergic rhinitis Anxiety Bloating Cervical disc herniation Closed fracture of left proximal humerus Depression Diarrhea Diverticulosis Dysmetabolic syndrome Epigastric pain Essential (primary) hypertension Fibromyalgia Fracture of talus of left ankle, closed GERD (gastroesophageal reflux disease) History of cataract History of gastroesophageal reflux (GERD) Hyperlipidemia Hypothyroidism Internal hemorrhoids Left ankle strain Medullary sponge kidney Osteoporosis Paroxysmal SVT (supraventricular tachycardia) Sacro-iliac pain Home Medications citalopram 40 mg tablet 40 mg PO QHS depression 09/24/16 [History Last Taken 01/08/19 40 MG] levothyroxine 50 mcg tablet 50 mcg PO DAILY thyroid 09/24/16 [History Last Taken 01/08/19 50 MCG] pantoprazole 40 mg tablet,delayed release 40 mg PO QHS gerd 09/24/16 [History Last Taken 01/08/19 40 MG] alprazolam 0.5 mg tablet 0.5 mg PO QHS 12/09/16 [History Last Taken 01/08/19 0.5 MG] acetaminophen 650 mg tablet,extended release 1,300 mg PO PRN PRN Pain 09/28/18 [History Last Taken 01/08/19 1300 MG] buspirone 15 mg tablet 15 mg PO DAILY depression/anxiety 09/28/18 [History Last Taken 01/08/19 15 MG] tizanidine 4 mg tablet 4 mg PO QHS muscle spasms 09/28/18 [History Last Taken 01/08/19 4 MG] turmeric 400 mg capsule 400 mg PO DAILY 11/26/20 [History Last Taken Unknown] biotin 5 mg capsule 5 mg PO DAILY 01/31/21 [History Last Taken Unknown] cholecalciferol (vitamin D3) 125 mcg (5,000 unit) tablet 125 mcg PO DAILY 01/31/21 [History Last Taken Unknown] multivit with pbkrbqwz-sblu-LN-lutein 8 mg iron-400 mcg-300 mcg tablet (Centrum Silver Women) 1 tablet PO DAILY 01/31/21 [History Last Taken Unknown] zoledronic acid 5 mg/100 mL in mannitol 5 %-water intravenous piggybck (Reclast)ea .Route 02/14/22 [History Last Taken Unknown] metoprolol succinate 25 mg tablet,extended release 24 hr 25 mg PO DAILY #90 tabs02/17/22 [Rx Last Taken Unknown] hydrocodone-acetaminophen 5-325mg 5mg-325mg 1 tab PO TID PRN 04/11/22 [History Last Taken Unknown] pregabalin 75 mg capsule 75 mg PO DAILY 04/11/22 [History Last Taken Unknown] lidocaine 4 % topical patch 1 patch topical DAILY PRN 06/02/22 [History Last Taken Unknown] meloxicam 15 mg tablet 15 mg PO DAILY 11/14/22 [History Last Taken Unknown] Allergy/AdvReac Type Severity Reaction Status Date / Time latex Allergy COUGHING Verified 11/19/22 22:38 AND SORE THROAT Family History Father , Age 43 Hodgkins disease Sister Osteoporosis Mother Myocardial infarction Other Hypertension Surgical History History of appendectomy History of bladder suspension procedure History of bunionectomy History of cataract extraction History of hysterectomy History of lumbar laminectomy (09/2019) History of radiofrequency ablation procedure for cardiac arrhythmia (08/07/21) History of right oophorectomy History of total left hip arthroplasty Social History household members: spouse Smoking Status: Never smoker alcohol intake: current alcohol intake frequency: a few times a month Alcohol type: wine substance use type: does not use caffeine: Yes Type: coffee Number of servings: 2 what type of physical activity do you participate in: none ROS ROS ED Constitutional Constitutional ED: Denies chills or fever(s) Eyes Eyes: Denies change in vision or discharge from eye(s) ENT ENT ED: Denies discharge from eye(s), rhinorrhea or sore throat Cardiovascular Cardiovascular: Denies chest pain or palpitations Respiratory/Chest Respiratory/Chest: Denies cough or dyspnea Gastrointestinal Gastrointestinal: Reports diarrhea; Denies abdominal pain, nausea or vomiting Genitourinary Genitourinary ED: Denies difficulty urinating or dysuria Musculoskeletal Musculoskeletal: Reports back pain; Denies extremity pain Integumentary Denies Abrasions or rash Neurologic Neurologic: Denies headache(s) or weakness Psychiatric Psychiatric: Denies anxiety or depression Allergic/Immunologic Allergic/Immunologic ED: Denies lip swelling or urticaria EXAM Physical Exam Const Vital Signs: 11/19/22 22:34 11/19/22 23:04 11/20/22 00:04 Temperature 97.0 F L Temperature Source Temporal Pulse Rate 70 Respiratory Rate 15 Respiratory Effort Normal Respiratory Pattern Normal Blood Pressure 83/51 L 95/57 L Blood Pressure Mean 61 69 Pulse Ox 96 Oxygen Delivery Method Room Air 11/20/22 01:05 11/20/22 02:09 Temperature Temperature Source Pulse Rate 62 60 Respiratory Rate 18 16 Respiratory Effort Respiratory Pattern Blood Pressure 117/47 L 110/84 H Blood Pressure Mean 70 92 Pulse Ox 97 93 Oxygen Delivery Method Room Air Room Air Positive well nourished and well developed General Appearance ED: well developed HEENT Reports normocephalic and head/scalp atraumatic Eyes PERRL and EOMs intact bilaterally Neck supple Chest Wall inspection of chest normal and palpation of chest normal Resp normal respiratory effort and clear to auscultation bilaterally Cardio regular rate and regular rhythm GI normal to inspection, nondistended, normoactive bowel sounds Palpation: soft Extremity normal to inspection Neuro oriented x3 and no sensory deficits noted Sensorium / Orientation: alert Motor Exam: strength 5/5 throughout Psych mental status grossly normal Skin no rashes or lesions noted MDM MDM MDM Narrative Medical decision making narrative: Patient is placed on conveyor monitor. IV fluid bolus initiated given her hypotension. CBC and chemistry studies obtained to evaluate for leukocytosis, anemia, electrolyte derangement. Urinalysis obtained to evaluate hydration status or infection. Lab Data Attestation: I reviewed the patient's lab results. Labs: Laboratory Results - last 24 hr 11/19/22 11/19/22 11/20/22 22:55 22:55 00:56 WBC 6.5 RBC 3.72 L Hgb 10.8 L Hct 35.1 L MCV 94.4 MCH 29.0 MCHC 30.8 L RDW Std Deviation 46.8 H RDW Coeff of Garret 13.3 Plt Count 315 MPV 9.6 Immature Gran % (Auto) 0.200 Neut % (Auto) 48.5 Lymph % (Auto) 38.1 [place] % (Auto) 10.3 H Eos % (Auto) 2.0 Baso % (Auto) 0.9 Absolute Neuts (auto) 3.2 Absolute Lymphs (auto) 2.48 Nucleated RBC % 0 Sodium 139 Potassium 3.9 Chloride 107 Carbon Dioxide 27.0 Anion Gap 5 BUN 18 Creatinine 1.31 H Estim Creat Clear Calc 40.86 Est GFR (MDRD) Af Amer 51 L Est GFR (MDRD) Non-Af 42 L BUN/Creatinine Ratio 13.7 Glucose 92 Calcium 8.5 Troponin I High Sens 6 Urine Color Yellow Urine Clarity Clear Urine pH 6.5 Ur Specific [place] 1.010 Urine Protein 30 H Urine Glucose (UA) Normal Urine Ketones Negative Urine Occult Blood Negative Urine Nitrite Negative Urine Bilirubin Negative Urine Urobilinogen Normal Ur Leukocyte Esterase 25 H Urine RBC 0 SEEN Urine WBC 0-5 SEEN Ur Squamous Epith Cells 0-5 SEEN Urine Bacteria RARE Urine Mucus 0 SEEN Radiography Diagnostic Testing: Clinical Impression(s) from Imaging Studies Chest/Abdomen/Pelvis CTA 11/20/22 23:52 IMPRESSION: Tortuous aorta without dissection or aneurysmal dilatation. Stable right-sided peripelvic cyst. Moderate atrophy left kidney. Interval visualization of a masslike density in the left side of the pelvis for which further evaluation is warranted with cystogram and/or cystoscopy. This measures approximately 1.7 x 1.5 cm and should be considered suspicious for neoplasm until proven otherwise. Recommend correlation with urinary laboratory values. Scoliosis degenerative change status post kyphoplasty Status post left hip arthroplasty. Status post hysterectomy. Nonspecific bowel gas pattern diverticulosis no diverticulitis. Left lower lobe atelectasis left lingular atelectasis possibly associated with a large persistent hiatal hernia with the stomach in the chest. Normal contrast-enhanced CT of the chest. Normal contrast-enhanced CT of the abdomen and pelvis. Electronically Signed: Telma Long MD at 1:43 EST Reading Location ID and State: [facility] / [place] Tel , Service support , EKG Initial EKG: Attestation: I personally reviewed and interpreted this EKG as follows: Interpretation: Sinus Rhythm (Sinus at 61 with no acute ischemia. Nonspecific T wave flattening throughout.) Treatment and Re-Evaluation Narrative: CBC and chemistry studies are remarkable only for a creatinine of 1.31. Prior creatinine from 15 months ago was 1.01. Urinalysis does not reveal significant ketones. After 1 L IV fluid systolic pressure still in the 90s. Second liter of IV fluids are given. Patient had mentioned to me that she been having some low back pain consistent with sciatica recently. She told nursing staff that the pain was between her shoulder blades. Given this and her hypotension she was sent for CTA of the chest, abdomen, and pelvis to rule out dissection. CTA reveals no evidence of dissection or pulmonary embolism. She does have a masslike density noted in the left pelvis and cystoscopy is recommended for further evaluation. This was discussed with patient and at bedside. I will refer her to Dr. Guzman for follow-up. At this time systolic blood pressure is 125. She is able to get up and ambulatein the emergency room without difficulty. I will ask her to hold her metoprololif her blood pressure is not above 130 systolic. She is to keep a journal of her blood pressure readings and take this to her next doctor's appointment. Discharge Plan Triage Chief Complaint: Hypotension ED Provider: Tanya Aceves Dx/Rx/DC Orders Clinical Impression: Hypotension, Pelvic mass in female Instructions: Blood Pressure Check Steps, ED Low Blood Pressure, All Causes Prescriptions: No Action turmeric 400 mg capsule 400 mg PO DAILY cholecalciferol (vitamin D3) 125 mcg (5,000 unit) tablet 125 mcg PO DAILY biotin 5 mg capsule 5 mg PO DAILY Centrum Silver Women 8 mg iron-400 mcg-300 mcg tablet 1 tablet PO DAILY zoledronic srds-nwwcbjvd-rdyzm [Reclast] 5 mg/100 mL piggyback .Route Rx Instructions: Once a year infusion pregabalin 75 mg capsule 75 mg PO DAILY hydrocodone-acetaminophen 5-325 mg tablet 1 tab PO TID PRN lidocaine 4 % adhesive patch,medicated 1 patch topical DAILY PRN meloxicam 15 mg tablet 15 mg PO DAILY citalopram 40 MG tablet 40 mg PO QHS levothyroxine 50 MCG tablet 50 mcg PO DAILY pantoprazole 40 MG tablet 40 mg PO QHS alprazolam 0.5 MG tablet 0.5 mg PO QHS tizanidine 4 MG tablet 4 mg PO QHS acetaminophen 650 MG tablet extended release 1,300 mg PO PRN PRN (Reason: Pain) buspirone 15 MG tablet 15 mg PO DAILY metoprolol succinate 25 mg tablet extended release 24 hr 25 mg PO DAILY Qty: 90 3RF Primary Care Provider: Eunice Joe Referrals: Tara Guzman MD [Med Staff - Active Staff] - As soon as possible Eunice Joe MD [Primary Care Provider] - 1 Week Activity Restrictions/Additional Instructions: Please check your blood pressure couple times a day and keep a journal to take your next doctor's appointment. If your systolic blood pressure is not above 130, please hold your metoprolol and document this. As discussed, your CT scan revealed a masslike density in your pelvis. Please follow-up with Dr. Guzman for further testing. Disposition Disposition: Home, Self Care What to do if you have Problems For any increased pain, shortness of breath, bleeding, nausea or vomiting, chestpain, or any unexpected problems, contact your Primary Care Provider. Call [facility] ([phone]) or report to the closest Emergency Room. Call 911 if necessary. 11/20/22523 <Electronically signed by Tanya Aceves MD> Cosigner Signature (if applicable): CC: Dr. Eunice Joe MD ~ Signed [facility] Work Phone: 1(237) 848-268201-20-2023 Miscellaneous Notes* Telephone Encounter - Michael Perry RN - 10/31/2022 11:06 AM EST Faxed referral, ov notes, demographics, insurance info, to Dr. Lauren office [phone], per patient request. [facility] Miscellaneous Notes* Telephone Encounter - Eunice Joe MD - 07/17/2022 9:22 AM EDT The following approved medication requests have been transmitted electronically. Requested Prescriptions Signed Prescriptions Disp Refills ALPRAZolam (XANAX) 0.5 mg tablet 60 tablet 1 Sig: Take 1 tablet by mouth twice daily for 60 days. For Anxiety and SOB related to throat/laryngospasm as directed Authorizing Provider: EUNICE JOE MD PDMP reviewed. Aware patient trying medical marijuana as prescribed by Dr. Álvarez. Noted that has not needed refill alprazolam since May 19, 2022. RX can last 2 months or so. Last hydrocodone was 05/07/22. Benefit of alprazolam outweighs risks at this time. Patient has follow up September. * Telephone Encounter - Lisa Wilder RN - 07/15/2022 11:30 AM EDT Patient has been identified by name and date of : Yes Patient phones for refill(s): Requested Prescriptions Pending Prescriptions Disp Refills ALPRAZolam (XANAX) 0.5 mg tablet 60 tablet 2 Sig: Take 1 tablet by mouth twice daily for 90 days. For Anxiety and SOB related to throat/laryngospasm as directed Date of last office visit in primary care: 05/06/22, NOV: 09/22/22 Last 2 Encounter Wt Readings: Date: Wt: 05/30/2022 70.5 kg (155 lb 6.4 oz) 05/06/2022 70.3 kg (155 lb) Please advise. Thank you. Lisa Wilder RN documented in this encounter[facility] History of Present illness Narrative* KARRIE Sandoval - 05/30/2022 10:24 AM EDT PULM FUNCTION SMARTBLOCK: Provider: Aminta Horvath APRN.COMMERCIAL LEASING MANAGER Assisting Tech: KARRIE Sandoval Spirometry: 1 documented in this encounterFisher[facility]08-02-2022 Miscellaneous Notes* Telephone Encounter - Eunice Joe MD - 05/13/2022 12:58 AM EDT RX given January but does not look like was filled per PDMP and Reconcile Will assume she requested the RX The following approved medication requests have been transmitted electronically. Signed Prescriptions Disp Refills pregabalin (LYRICA) 75 mg capsule 180 capsule 1 Sig: Take 1 capsule by mouth twice daily for 180 days. VICENTE Class: C-V MARIANNE: No Authorizing Provider: EUNICE JOE MD * Telephone Encounter - Leti Cochran Ma - 05/12/2022 1:17 PM EDT Last OV: 05/06/22 Next OV:09/22/22 documented in this encounterFisher[facility]07-25-2022 Miscellaneous Notes* Telephone Encounter - Eunice Joe MD - 05/05/2022 7:58 PM EDT Noted Agree okay with appointment tomorrow with Aminta since better since home and suspect panic attack, but should still be evaluated. * Telephone Encounter - Agustina Guzman RN - 05/05/2022 12:05 PM EDT Patient calling to say she was seen in Dr. Álvarez's office this morning and arrived there with SOB.She says this is not a new problem and it comes and goes with exertion. Today in his office it was worse than usual. He recommended she see her PCP today. She denies chest pain. States she is home now and her breathing is better. She feels she may have had a panic attack due to concern about her grandson. She is asking to be seen by PCP today but there are no appointments available. First available appointment in [facility] is tomorrow with Aminta. She is willing to schedule this appointment. Disposition: See PCP within 4 hours or PCP Triage. She states her BP is 158/90 P-74. She states she is no longer SOB. She took prn Xanax while speaking with nurse on phone. Appointment scheduled with Aminta 05/06 @ 11 A. Reason for Disposition [1] MILD difficulty breathing (e.g., minimal/no SOB at rest, SOB with walking, pulse <100) AND [2] NEW-onset or WORSE than normal Answer Assessment - Initial Assessment Questions 1. RESPIRATORY STATUS: increasing SOB with exertion 2. ONSET: long time ago 3. PATTERN : comes and goes 4. SEVERITY: "How bad is your breathing?" (e.g., mild, moderate, severe) - MILD: No SOB at rest, mild SOB with walking, speaks normally in sentences, can lay down, no retractions, pulse < 100. 5. RECURRENT SYMPTOM: has happened in the past 6. CARDIAC HISTORY: No cardiac history 7. LUNG HISTORY: No pulmonary history 8. CAUSE: "I think I could have had a panic attack. I am very concerned about my grandson." 9. OTHER SYMPTOMS: slight dizziness, denies chest pain 10. : No 11. TRAVEL: No Protocols used: BREATHING [id number] documented in this encounterFisher[facility]06-14-2022 Miscellaneous Notes* Telephone Encounter - Flakita Peguero RN - 03/25/2022 12:04 PM EDT Pt called and is notified of providers message and instructions. Pt voices understanding, she reports she was almost at the ER. She had decided she had better go, but feels better that her provider thought so as well. Flakita Peguero RN * Telephone Encounter - Eunice Joe MD - 03/25/2022 11:28 AM EDT For persistent headache after a fall, whether or not hit her head, if not able to alleviate it withusual meds, would recommend ER evaluation so they can determine if needs stat CT head and do while she is there stat. And they can treat the headache if it severe * Telephone Encounter - Heather Feliz RN - 03/25/2022 10:46 AM EDT Patient calls and states that she fell on 03/17/2022. Patient was seen in the ER. Patient could notremember if she hit her head. Hospital did not do any CT Scans on her head per patient. Patient forthe past 4 days has had a headache which has not been relieved by pain medications. Patient has stiff neck and shoulders. Advised patient that she should be evaluated in ER for her headaches. Patientvoiced understanding. Patient asking for PCP opinion in regards to this. Please review and advise, Heather Feliz RN documented in this encounter[facility]05-10-2022 Miscellaneous Notes* Telephone Encounter - Radha Anne LPN - 02/18/2022 12:28 PM EDT Patient has been identified by name and date of : Yes Patient phones for refill(s): Pending Prescriptions Disp Refills BUSPIRONE 15 MG TABLET 270 tablet 3 Sig: Take 1.5 tablets by mouth twice daily. MARIANNE: No Date of last office visit in primary care: 01/10/22 next apt 09/22/22 Last 2 Encounter Wt Readings: Date: Wt: 02/12/2022 73.9 kg (163 lb) 01/10/2022 66.7 kg (147 lb) Previous labs/tests for medication: Not applicable Thank you. Radha Anne LPN documented in this encounterFisher[facility]05-10-2022 Miscellaneous Notes* Telephone Encounter - Radha Anne LPN - 02/18/2022 12:27 PM EDT Patient has been identified by name and date of : Yes Patient phones for refill(s): Pending Prescriptions Disp Refills CITALOPRAM 40 MG TABLET 90 tablet 0 Sig: Take 1 tablet by mouth once daily. MARIANNE: No Date of last office visit in primary care: 01/10/22 next apt 09/22/22 Last 2 Encounter Wt Readings: Date: Wt: 02/12/2022 73.9 kg (163 lb) 01/10/2022 66.7 kg (147 lb) Previous labs/tests for medication: Not applicable Please advise. Thank you. Radha Anne LPN documented in this [facility]04-28-2022 Miscellaneous Notes* Telephone Encounter - Aminta Horvath APRN.CNS - 02/06/2022 4:46 PM EDT ok, filed * Telephone Encounter - Lisa Stone - 02/06/2022 10:38 AM EDT Please see note below * Telephone Encounter - Lashell Chavez APRN.CNP - 02/04/2022 1:25 PM EDT Please call patient to set up Reclast infusion Lashell Chavez APRN.CNP documented in this encounterFisher[facility]04-07-2022 Miscellaneous Notes* Telephone Encounter - Luz Rodriguez LPN - 01/16/2022 3:09 PM EDT Patient has been identified by name and date of : Yes Patient phones for refill(s): Pending Prescriptions Disp Refills CHOLECALCIFEROL (VITAMIN D3) 125 MCG (5,000 UNIT) CAPSULE 90 capsule 3 Sig: Take 1 capsule by mouth once daily. MARIANNE: No Date of last office visit in primary care: 01/10/2022 6 month follow-up: 09/22/2022 Last 2 Encounter Wt Readings: Date: Wt: 01/10/2022 66.7 kg (147 lb) 08/05/2021 70.3 kg (155 lb) Previous labs/tests for medication: Blood Counts: WBC (k/uL) Date Value 01/17/2021 7.07 RBC (m/uL) Date Value 01/17/2021 4.09 Hematocrit (%) Date Value 01/17/2021 38.9 Hemoglobin (g/dL) Date Value 01/17/2021 12.3 Platelet Count (k/uL) Date Value 01/17/2021 379 Please advise. Thank you. Luz Rodriguez LPN documented in this encounterFisher[facility]04-01-2022 History of Present illness Narrative* Eunice Joe MD - 01/10/2022 10:54 AM EDT This note was created using [employer]. Subjective Nella Benítez is a 71 year old female. Patient presents with: F/U 6 months SUBJECTIVE: Nella Benítez is a 71 year old year old lady here today for 6 month follow up appointment for review of medical conditions. Doing well today. Limited exercise because of of chronic pain issues. Hoping to get nerve stimulator trial approved to see if effective so can get permanent one to control pain. Dr. Álvarez Pain still goes down to ankle and toes on left. About a week of relief with the shots. Getting around with walker okay. 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 (PROTONIX) 40 mg tablet Take 1 tablet by mouth once daily. buPROPion SR (ZYBAN SR; WELLBUTRIN SR) 150 mg 12 hr tablet Take 1 tablet by mouth twice daily. As directed citalopram (CELEXA) 40 mg tablet Take 1 tablet by mouth once daily. ALPRAZolam (XANAX) 0.5 mg tablet Take 1 tablet by mouth twice daily for 90 days. For Anxiety and SOB related to throat/laryngospasm as directed metoprolol succinate ER (TOPROL XL) 25 mg 24 hr tablet Take 12.5 mg by mouth daily at bedtime. Along with 25 mg dose meloxicam (MOBIC) 15 mg tablet Take 1 tablet by mouth once daily. Take with food. busPIRone (BUSPAR) 15 mg tablet Take 1.5 tablets by mouth twice daily. levothyroxine (SYNTHROID) 50 mcg tablet Take 1 tablet by mouth once daily. tiZANidine (ZANAFLEX) 4 mg tablet Take 1 tablet by mouth twice daily as needed. Cholecalciferol, Vitamin D3, 125 mcg (5,000 unit) cap Take 1 capsule by mouth once daily. calcium carbonate 600 mg-cholecalciferol 200 units (CALCIUM 600 + D,3,) 600 mg(1,500mg) -200 unit tab Take 1 tablet by mouth twice daily. Calcium viactive chewable acetaminophen (TYLENOL) 325 mg tablet Take 650 mg by mouth every 6 hours as needed. fexofenadine (ALVINA) 180 mg tablet Take 180 mg by mouth once daily. traMADol (ULTRAM) 50 mg tablet Take 1 tablet by mouth every 6 hours as needed for up to 7 days. metoprolol succinate ER (TOPROL XL) 25 mg 24 hr tablet Take 25 mg by mouth once daily. losartan (COZAAR) 25 mg tablet Once daily or as directed (Patient not taking: Reported on 04/17/2021 ) No current facility-administered medications for this visit. Review of Systems Objective BP 122/84 Pulse 78 Wt 66.7 kg (147 lb) BMI 28.71 kg/m Last 5 Encounter Wt Readings: Date: Wt: 01/10/2022 66.7 kg (147 lb) 08/05/2021 70.3 kg (155 lb) 04/17/2021 70.3 kg (155 lb) 01/23/2021 67.1 kg (148 lb) 01/09/2021 68 kg (150 lb) No waist measurement recorded Estimated body mass index is 28.71 kg/m as calculated from the following: Height as of 01/09/21: 152.4 cm (5'). Weight as of this encounter: 66.7 kg (147 lb). Last 5 Encounter BP Readings: Date: BP: 01/10/2022 122/84 08/05/2021 146/86 04/17/2021 102/68 01/23/2021 130/78 01/09/2021 124/80 01/10/22 1029 01/10/22 1120 BP: 122/84 122/78 Pulse: 78 Weight: 66.7 kg (147 lb) Physical Exam Constitutional: Appearance: Normal appearance. HENT: Head: Normocephalic. Eyes: Conjunctiva/sclera: Conjunctivae normal. Cardiovascular: Rate and Rhythm: Normal rate and regular rhythm. Heart sounds: Normal heart sounds. Pulmonary: Effort: Pulmonary effort is normal. Breath sounds: Normal breath sounds. Musculoskeletal: Comments: Needs to use walker to ambulate. Noted pain left lower back and down leg noted Skin: General: Skin is warm and dry. Neurological: General: No focal deficit present. Mental Status: She is alert and oriented to person, place, and time. Psychiatric: Mood and Affect: Mood normal. Behavior: Behavior normal. Thought Content: Thought content normal. Judgment: Judgment normal. Component Latest Ref Rng & Units 01/17/2021 08/01/2021 01/07/2022 Protein, Total 6.3 - 8.0 g/dL 6.7 Albumin 3.9 - 4.9 g/dL 4.5 4.4 Calcium 8.5 - 10.2 mg/dL 9.7 9.7 Bilirubin, Total 0.2 - 1.3 mg/dL 0.3 Alkaline Phosphatase 34 - 123 U/L 71 AST 13 - 35 U/L 15 Glucose 74 - 99 mg/dL 79 82 BUN 7 - 21 mg/dL 13 11 Creatinine 0.58 - 0.96 mg/dL 0.97 (H) 1.02 (H) Sodium 136 - 144 mmol/L 139 142 Potassium 3.7 - 5.1 mmol/L 4.8 4.4 Chloride 97 - 105 mmol/L 103 103 CO2 22 - 30 mmol/L 26 29 Anion Gap 9 - 18 mmol/L 10 10 ALT 7 - 38 U/L 10 eGFR- >60 eGFR-All Other Races . 57 Phosphorus 2.7 - 4.8 mg/dL 3.8 eGFR >=60 mL/min/1.73m 59 (L) WBC 3.70 - 11.00 k/uL 7.07 RBC 3.90 - 5.20 m/uL 4.09 Hemoglobin 11.5 - 15.5 g/dL 12.3 Hematocrit 36.0 - 46.0 % 38.9 MCV 80.0 - 100.0 fL 95.1 MCH 26.0 - 34.0 pG 30.1 MCHC 30.5 - 36.0 g/dL 31.6 RDW-CV 11.5 - 15.0 % 13.6 Platelet Count 150 - 400 k/uL 379 MPV 9.0 - 12.7 fL 9.6 Absolute nRBC <0.01 k/uL <0.01 Cholesterol, Total <200 mg/dL 258 (H) 264 (H) Triglyceride <150 mg/dL 174 (H) 175 (H) HDL Cholesterol >39 mg/dL 70 71 LDL Cholesterol <100 mg/dL 153 (H) 158 (H) Non HDL Cholesterol <130 mg/dL 188 (H) 193 (H) Fasting Time hrs 12 15 VLDL Cholesterol <30 mg/dL 35 (H) 35 (H) TC:HDL Ratio <5.10 3.69 3.72 LDL:HDL Ratio <2.54 2.19 2.23 Hemoglobin A1C 4.3 - 5.6 % 5.4 Estimated Average Glucose mg/dL 108 Vitamin D 25 Hydroxy 31.0 - 80.0 ng/mL 77.8 PTH, Intact 15 - 65 pg/mL 42 TSH 0.270 - 4.200 mIU/L 1.330 1.130 Free T4 0.9 - 1.7 ng/dL 1.5 Free T3 2.3 - 4.1 pg/mL 2.8 The 10-year ASCVD risk score (Joshua HENNING JrNathanael, et al., 2013) is: 13.2% Values used to calculate the score: Age: 71 years Sex: Female Is Non- : No Diabetic: No Tobacco smoker: No Systolic Blood Pressure: 122 mmHg Is BP treated: Yes HDL Cholesterol: 71 mg/dL Total Cholesterol: 264 mg/dL Assessment and Plan ASSESSMENT/PLAN: 1. Acquired hypothyroidism - ICD9: 244.9, ICD10: E03.9 (primary diagnosis) - continue current dose of Synthroid 0.050 mg Weight decreasing--needing to get weight back gatito n to comfortable level. - LEVOTHYROXINE 50 MCG TABLET 2. Essential hypertension - ICD9: 401.9, ICD10: I10 - good control - Continue current medication(s) - Recommended regular aerobic exercise. - Goal of BP <130/80 - Recommended no refined sugar, low refined starch, healthy oil intake (olive oil), healthy protein(fish) along the lines of the Mediterranean diet. 3. Chronic midline low back pain with left-sided sciatica - ICD9: 724.2, 724.3, 338.29, ICD10: M54.42, G89.29 Continues to follow with Dr. Álvarez. Some improvement but activity still limited. Plans for nerve stimulator in the works--waiting for insurance to approve trial with temporary one so can see if effective then plan the permanent implanted stimulator. - Patient given instructions use of medications as ordered, intermittent rest, weight loss and as above with Dr. Álvarez - PREGABALIN 75 MG CAPSULE - TIZANIDINE 4 MG TABLET 4. Pain in left hip - ICD9: 719.45, ICD10: M25.552 Continue present management. Further evaluation and treatment as indicated. - TIZANIDINE 4 MG TABLET 5. Colon cancer screening - ICD9: V76.51, ICD10: Z12.11 - COLOGUARD 6. Vitamin D deficiency - ICD9: 268.9, ICD10: E55.9 Adjust replacement as indicated. 7. Mixed hyperlipidemia - ICD9: 272.2, ICD10: E78.2 - suboptimal control - Encouraged following a low fat, low cholesterol diet. - Discussed the benefits of regular aerobic exercise and weight loss. - Encouraged following a low carbohydrate, healthy oil intake diet. Eunice Joe MD Medical Decision Making: Problems: Moderate: 2+ stable chronic illnesses Data: Unique test result(s) reviewed: 3+ Unique test(s) ordered: 1 Risk: Moderate: Drug management Medical Decision Making Level: 4 - Moderate documented in this encounter[facility]06-30-2006 History of Past illness Narrative* Problem Noted Date Diagnosed Date Resolved Date Secondary hyperparathyroidism, non-renal 04/10/2006 07/12/2023 documented as of this encounter (statuses as of 07/12/2023) [facility] of Past illness Narrative* Problem Noted Date Diagnosed Date Resolved Date Secondary hyperparathyroidism, non-renal 04/10/2006 07/12/2023 documented as of this encounter (statuses as of 08/12/2023) [facility] of Past illness Narrative* Problem Noted Date Diagnosed Date Resolved Date Secondary hyperparathyroidism, non-renal 04/10/2006 07/12/2023 documented as of this encounter (statuses as of 08/12/2023) [facility] of [facility] illness Narrative* Problem Noted Date Diagnosed Date Resolved Date Secondary hyperparathyroidism, non-renal 04/10/2006 07/12/2023 documented as of this encounter (statuses as of 12/11/2023) [facility] of Past illness Narrative* Problem Noted Date Diagnosed Date Resolved Date Secondary hyperparathyroidism, non-renal 04/10/2006 07/12/2023 documented as of this encounter (statuses as of 01/26/2024) [facility] of Past illness Narrative* Problem Noted Date Diagnosed Date Resolved Date Secondary hyperparathyroidism, non-renal 04/10/2006 07/12/2023 documented as of this encounter (statuses as of 01/26/2024) [facility] Future Appointments Appointment Date:02/10/2023 03:50:00 PM Scheduled Provider: Location:Main OR Appointment Type:Surgery [facility] Urology Appointment Date:03/02/2023 01:00:00 PM Scheduled Provider:FADY SHI MD Location:UROLOGY Appointment Type:URO OV Post Op Future Scheduled Tests Laboratory* Basic Metabolic Panel 02/02/23 * Complete Blood Count 02/02/23 [facility] Evaluation + Plan note Future Appointments Appointment Date:02/10/2023 04:55:00 PM Scheduled Provider: Location:Main OR Appointment Type:Surgery - [facility] Appointment Date:03/02/2023 01:00:00 PM Scheduled Provider:FADY SHI MD Location:UROLOGY Appointment Type:URO OV Post Op [facility] Evaluation + Plan note Future Appointments Appointment Date:03/02/2023 01:00:00 PM Scheduled Provider:FADY SHI MD Location:UROLOGY Appointment Type:URO OV Post Op [facility] Evaluation + Plan note Future Appointments Appointment Date:06/10/2023 10:40:00 AM Scheduled Provider:FADY SHI MD Location:UROLOGY Appointment Type:URO Off Proc Cysto [facility] evaluation + Plan note Future Appointments Appointment Date:06/22/2024 10:50:00 AM Scheduled Provider:FADY SHI MD Location:UROLOGY Appointment Type:URO Off Proc Cysto Future Scheduled Tests Laboratory* Pathology Non-Clinical Counselor Request 06/17/24 [facility] evaluation + Plan note Future Appointments Appointment Date:07/13/2024 11:10:00 AM Scheduled Provider:FADY SHI MD Location:UROLOGY Appointment Type:URO Off Proc Cysto [facility] evaluation + Plan note Future Appointments Appointment Date:01/11/2025 11:00:00 AM Scheduled Provider:FADY SHI MD Location:UROLOGY Appointment Type:URO Off Proc Cysto Future Scheduled Tests Laboratory* Pathology Non-Clinical Counselor Request 01/11/25 [facility] evaluation + Plan note Future Appointments Appointment Date:01/24/2026 11:00:00 AM Scheduled Provider:FADY SHI MD Location:UROLOGY Appointment Type:URO Off Proc Cysto Future Scheduled Tests Laboratory* Pathology Non-Clinical Counselor Request 01/25/26 [facility] evaluation note* Diagnosis Acquired hypothyroidism- Primary Unspecified hypothyroidism Essential hypertension Unspecified essential hypertension Chronic midline low back pain with left-sided sciatica Pain in left hip Pain in joint, pelvic region and thigh Colon cancer screening Special screening for malignant neoplasms, colon Vitamin D deficiency Unspecified vitamin D deficiency Mixed hyperlipidemia Recurrent major depressive disorder, in remission (HCC) documented in this encounter [facility] note* Diagnosis Osteoporosis with current pathological fracture with routine healing, unspecified osteoporosis type, subsequent encounter- Primary documented in this encounter [facility] note* Diagnosis Cervical disc disorder of mid-cervical region- Primary Other and unspecified disc disorder of cervical region Spinal stenosis, lumbar region, without neurogenic claudication Osteoporosis with current pathological fracture with routine healing, unspecified osteoporosis type, subsequent encounter documented in this encounter [facility] note* Diagnosis Onset Date Resolution Status Right wrist pain acute [facility] Work Phone: Evaluation note* Diagnosis Chronic midline low back pain with left-sided sciatica documented [facility] this encounter [facility]* Diagnosis SOBOE (shortness of breath on exertion) Shortness of breath [facility] this [facility]* Diagnosis Grief reaction Adjustment disorder with depressed mood Anxiety Anxiety state, unspecified documented in this encounter [facility] noteNo assessment information availableWReg[facility] [place] Work [facility]: Evaluation note* Diagnosis Encounter for screening for osteoporosis- Primary Special screening for osteoporosis Asymptomatic postmenopausal status Osteoporosis with current pathological fracture with routine healing, unspecified osteoporosis type, subsequent encounter [facility] this [facility]* Diagnosis Near syncope- Primary Syncope and collapse Gastroesophageal reflux disease, unspecified whether esophagitis present Diarrhea, unspecified type Anemia, unspecified type Chronic midline low back pain without sciatica documented in this encounter [facility]* Diagnosis Onset Date Resolution Status Diarrhea chronic Epigastric pain chronic GERD (gastroesophageal reflux disease) chronic Lower abdominal pain chronic [facility] Work Phone: Evaluation note* Diagnosis Bladder tumor- Primary Neoplasm of unspecified nature of bladder Pre-op exam Preoperative examination, unspecified Essential hypertension Unspecified essential hypertension Other hyperlipidemia Medullary sponge kidney Congenital medullary sponge kidney Acquired hypothyroidism Unspecified hypothyroidism Stage 3a chronic kidney disease (HCC) Paroxysmal SVT (supraventricular tachycardia) (HCC) Paroxysmal supraventricular tachycardia Clostridium difficile infection Infection due to other anaerobes in conditions classified elsewhere and of unspecified site documented in this encounter [facility]* Diagnosis URI, acute- Primary Acute upper respiratory infections of unspecified site Sore throat Acute pharyngitis [facility] this [facility]* Diagnosis Bilateral carpal tunnel syndrome- Primary Carpal tunnel syndrome CMC arthritis Unspecified arthropathy, hand Pseudogout Other disorder of calcium metabolism documented [facility] this [facility]* Diagnosis Grief reaction Adjustment disorder with depressed mood Anxiety Anxiety state, unspecified [facility]* Diagnosis Chronic midline low back pain with left-sided sciatica [facility]* Diagnosis Grief reaction Adjustment disorder with depressed mood Anxiety Anxiety state, unspecified [facility] Diagnosis Chronic midline low back pain with left-sided sciatica documented in this encounter [facility] note* Diagnosis Bilateral carpal tunnel syndrome- Primary Carpal tunnel syndrome documented in this encounter [facility] note* Diagnosis Acute non-recurrent frontal sinusitis- Primary documented in this encounter [facility] note* Diagnosis Acute midline thoracic back pain- Primary Chronic midline low back pain with left-sided sciatica Anxiety Anxiety state, unspecified Recurrent major depressive disorder, in partial remission (HCC) Essential hypertension Unspecified essential hypertension Grief reaction Adjustment disorder with depressed mood Encounter for immunization Need for other specified prophylactic vaccination against single bacterial disease documented in this encounter [facility] note* Diagnosis Grief reaction Adjustment disorder with depressed mood Anxiety Anxiety state, unspecified documented in this encounter [facility] note* Diagnosis Strain of right shoulder, initial encounter- Primary Anxiety Anxiety state, unspecified Gastroesophageal reflux disease, unspecified whether esophagitis present Recurrent major depressive disorder, in remission (HCC) Grief reaction Adjustment disorder with depressed mood Encounter for long-term current use of medication Anemia, unspecified type Hypokalemia Hypopotassemia HARTMANN (dyspnea on exertion) Other dyspnea and respiratory abnormality Cervical disc disorder of mid-cervical region Other and unspecified disc disorder of cervical region Cervical radiculopathy Brachial neuritis or radiculitis nos documented in this encounter [facility] note* Diagnosis Acquired hypothyroidism Unspecified hypothyroidism documented in this encounter [facility] note* Diagnosis Onset Date Resolution Status CHINTAN (obstructive sleep apnea) acute Paroxysmal SVT (supraventricular tachycardia) acute Chest pain chronic Essential (primary) hypertension [facility] Work Phone: Evaluation note* Diagnosis Grief reaction Adjustment disorder with depressed mood Anxiety Anxiety state, unspecified documented in this encounter [facility] note* Diagnosis Encounter for screening mammogram for breast cancer [facility] Diagnosis CHINTAN (obstructive sleep apnea)- Primary Obstructive sleep apnea (adult) (pediatric) Essential hypertension Unspecified essential hypertension documented in this encounter [facility] note* Diagnosis Severe anxiety with panic- Primary Age-related osteoporosis without current pathological fracture Senile osteoporosis CHINTAN (obstructive sleep apnea) Obstructive sleep apnea (adult) (pediatric) documented in this encounter [facility] note* Diagnosis Severe anxiety with panic [facility] Severe anxiety with panic [facility] Diagnosis Sinobronchitis- Primary Unspecified sinusitis (chronic) History of COVID-19 [facility] Severe anxiety with panic [facility] Diagnosis Bilateral hand pain Pain in limb [facility] Diagnosis Anxiety- Primary Anxiety state, unspecified Grief reaction Adjustment disorder with depressed mood [facility] Diagnosis Chronic midline low back pain with left-sided sciatica- Primary Pain in left hip Pain in joint, pelvic region and thigh Recurrent major depressive disorder, in remission ([facility]) Acquired hypothyroidism Unspecified hypothyroidism Essential hypertension Unspecified essential hypertension Grief reaction Adjustment disorder with depressed mood Anxiety Anxiety state, unspecified Age-related osteoporosis without current pathological fracture Senile osteoporosis Encounter for long-term current use of medication Gastroesophageal reflux disease without esophagitis Esophageal reflux [facility] Diagnosis CHINTAN (obstructive sleep apnea)- Primary Obstructive sleep apnea (adult) (pediatric) Intolerance of continuous positive airway pressure (CPAP) ventilation [facility] Diagnosis Grief reaction Adjustment disorder with depressed mood Anxiety Anxiety state, unspecified [facility] Diagnosis Acquired hypothyroidism- Primary Unspecified hypothyroidism Osteoporosis with current pathological fracture with routine healing, unspecified osteoporosis type, subsequent encounter Scoliosis of thoracolumbar spine, unspecified scoliosis type Medullary sponge kidney Congenital medullary sponge kidney Stage 3a chronic kidney disease (HCC) Anxiety Anxiety state, unspecified Compression fracture of T12 vertebra, sequela Anemia, unspecified type [facility] Diagnosis Arthralgia of multiple joints- Primary Pain in joint, multiple sites [facility] Acute cough- Primary Rhinosinusitis Unspecified sinusitis (chronic) Acute cough [facility] Acute cough [facility] Diagnosis Recurrent major depressive disorder, in remission [facility] Diagnosis Chronic midline low back pain with left-sided sciatica Pain in left hip Pain in joint, pelvic region and thigh [facility] Diagnosis Grief reaction Adjustment disorder with depressed mood Anxiety Anxiety state, unspecified [facility] Diagnosis Anxiety Anxiety state, unspecified [facility] Diagnosis Anxiety Anxiety state, unspecified [facility] Diagnosis Bilateral carpal tunnel syndrome- Primary Carpal tunnel syndrome Primary osteoarthritis of both hands FPC (current) use of bisphosphonates documented [facility] this [facility] Diagnosis Acute cough- Primary Acute non-recurrent maxillary sinusitis Acute cough [facility] Diagnosis Acute cough [facility] Diagnosis Grief reaction Adjustment disorder with depressed mood Anxiety Anxiety state, unspecified [facility] Diagnosis Sinobronchitis- Primary Unspecified sinusitis (chronic) Iron deficiency anemia, unspecified iron deficiency anemia type B12 deficiency Other B-complex deficiencies Grief reaction Adjustment disorder with depressed mood Anxiety Anxiety state, unspecified Neuropathy Mononeuritis of unspecified site Breast cancer screening by mammogram Spinal stenosis, lumbar region, without neurogenic claudication Pain in left leg [facility] Diagnosis Chronic cough- Primary Cough documented in this encounter [facility] note* Diagnosis Chronic cough- Primary Cough documented in this encounter [facility] note* Diagnosis Chronic cough- Primary Cough documented in this encounter [facility] note* Diagnosis Chronic cough- Primary Cough [facility] Author Shabbir Avina [facility] April 06, 2023 6:26am Note Date/Time April 06, 2023 6:26 am [facility] Medical Records Department [address] [place] [address] History & Physical Exam 04/06/2325 MR#: [id number] Acct: [id number] Name: NELLA BENÍTEZ Rep #:[id number] : 1950 72 From: Shabbir Avina DO PCP: Dr. Eunice Joe MD Status:[facility] Location: [place] [address] History and Physical Date of Admission: 04/06/23 72 F who presents to the office today to establish with Gastroenterology for chronic diarrhea. She reports years of IBS-D but significantly increased symptoms for at least 5 years. Her diarrhea was so significant in early at she needed ED visit for dehydration and hypotension. She has at least 5 BMsper day, loose or watery, rarely has formed stool. Has urgent diarrhea that starts during meals. Diarrhea will occas wake her at night. Gets cramps before the diarrhea, pain isn't always relieved with BMs. No melena or hematochezia. Takes imodium which is only partially effective, less so over time. Negative Cologuard last year. Last colonoscopy was probably at least [address] Canales at [facility]. Lots of bloating, gas. Despite daily pantoprazole 40 mg she still needs TUMS for heartburn. Has been told she has a large hiatal hernia seen on imaging. No prior EGD. Occas has trouble swallowing pills. Gets epigastric pain routinely, not related to eating, better with sucralfate. She has a bladder mass, likely cancer, was evaluated by urologist Dr Guzman whohamarylou referred the patient to urologist Dr Shi at [facility]. ROS Const Constitutional: Positive for frequent falls and weight change (loss); No fatigue, fever(s), headache(s), sleep problems, abnormal sleep pattern or change in appetite ENT ENT: No headache(s), difficulty swallowing, hoarseness or sore throat Resp Respiratory: No cough, hemoptysis or shortness of breath Cardio Cardiology: Positive for leg pain with exertion; No chest pain at rest or generalized swelling Gastro GI: Positive for abdominal pain, bloating, constipation, diarrhea, heartburn andnausea/dyspepsia; No belching, change in bowel habits, change in stool character, coffee ground emesis, cramping, difficulty swallowing, feeling full early, excessive flatus, incontinent of stools, Vomiting blood/hematemesis, Blood in stool, loose stools,Black,tarry stools, pain with swallowing or vomiting Musc Musculoskeletal: Positive for abnormal gait, joint pain, back pain, joint swelling, muscle cramps, muscle weakness, numbness, stiffness, tingling, Arthritis, sciatica, restless legs and leg pain with exertion Skin Skin: No itchy eyes or rash Neuro Neurology: Positive for abnormal gait, frequent falls, numbness, tingling and restless legs; No behavioral changes, confusion or headache(s) Psych Psychiatric: No abnormal sleep pattern, Positive for anxiety, No behavioral changes, No change in appetite, No confusion and Positive for depression Endo Endocrine: Positive for weight change (loss); No cold intolerance, fatigue, heat intolerance or increased thirst/drinking Aller/Imm Allergy/Immunologic: No food intolerance or itchy eyes Cipriano/Lymp Hematologic/Lymphatic: No easy bleeding, easy bruising or enlarged lymph nodes Exam Const General: cooperative and comfortable Nutritional Appearance: overweight Orientation: alert, awake and oriented x3 HENMT Head: normal to inspection Eyes Sclera: sclerae normal Resp Effort & Inspection: normal respiratory effort GI Inspection: normal to inspection Palpation: soft, no hepatosplenomegaly, no masses and tender in the epigastrum, in the LLQ and in the RLQ Skin General: no rashes or lesions noted and no jaundice Quality Reporting Tobacco Screening ([facility]) Smoking Status: Never smoker Assessment and Plan Assessment and Plan (1) Diarrhea: ?Status:?Chronic ?Plan: This delightful 72 yr old female has a hx of IBS-D but with significant increasein diarrhea and cramping lower abd pain for at least 5 yrs; she also has chronicheartburn and chronic epigastric pain with a very large hiatal hernia. Unfortunately she has just been diagnosed with bladder cancer; she will see Dr Shi at [facility] next week for this. We will get blood and stool tests to eval for inflammation, celiac, autoimmune. DDx for her diarrhea includes microscopic colitis, SCAD, IBD, IBS, bile induced. Will have her try colestipol 1-2 grams atlunchtime, as well as dicyclomine 10 mg bid. She will be scheduled for EGD and colonoscopy, with office f/u 2 wks later. Early satiety may be due to hiatal hernia, but will consider gastric emptying study. (2) Lower abdominal pain: ?Status:?Chronic ?Plan: see above (3) Epigastric pain: ?Status:?Chronic ?Plan: see above (4) GERD (gastroesophageal reflux disease): ?Status:?Chronic ?Plan: I have examined the patient and the H&P has been reviewed. There areno clinical changes since date of exam. 04/06/23 0626 <Electronically signed by Shabbir Avina DO> Cosigner Signature (if applicable): CC: Dr. Eunice Joe MD; Shabbir Avina DO~ Signed [facility] Work Phone: Hospital course Narrative No data available for this section [facility] Hospital Discharge instructions Additional Instructions Please check your blood pressure couple times a day and keep a journal to take your next doctor's appointment. If your systolic blood pressure is not above 130, please hold your metoprolol and document this. As discussed, your CT scan revealed a masslike density in your pelvis. Please follow-up with Dr. Guzman for further testing.[facility] Work Phone: Hospital Discharge instructions No data available for this section [facility] Progress note No data available for this section [facility] Reason for referral (narrative)* Outpatient Procedure (Routine) - Authorized Specialty Diagnoses / Procedures Referred By Contact Referred To Contact [facility] Diagnoses Bilateral carpal tunnel syndrome [facility] arthritis Procedures EMG(NEURO/NI) NERVE CONDUCTION STUDIES 9-10 STUDIES Katherine Pham DO [address] [facility] [address] [place] [address] [facility] [address] [place] [address] Referral ID Status Reason Start Date Expiration Date Visits Requested Visits Authorized [id number] Authorized Auto-Generat ed Referral 04/29/2023 04/29/2024 1 1 [facility] for referral (narrative)* Diagnostic Procedure Only (Routine) - Pending Review Specialty Diagnoses / Procedures Referred By Contsaeid yanez Referred To Contact BR IMAGING Diagnoses Encounter for screening mammogram for breast cancer Procedures BRANT SCREENING SCREENING MAMMOGRAPHY BI 2-VIEW BREAST INC CAD Eunice Joe MD [address] [place] [address] [facility] [address] [place] [address] Referral ID Status Reason Start Date Expiration Date Visits Requested Visits Authorized [id number] Pending Review Auto-Generat ed Referral 02/17/2024 03/18/2025 1 1 [facility] for referral (narrative)* Diagnostic Procedure Only (Routine) - Closed Specialty Diagnoses / Procedures Referred By Contac t Referred To Contact XR IMAGING Diagnoses Bilateral hand pain Procedures XR HAND GENERAL 3V PA/LAT/OBL BILATERAL RADEX HAND MINIMUM 3 VIEWS Dorinda Pichardo PA-C [address] [place] [address] [place] [address] Referral ID Status Reason Start Date Expiration Date V isits Requested Visits Authorized [id number] Closed Auto-Generate d Referral 04/09/2023 05/08/2024 1 1 [facility] for visit Narrative* Diagnostic Procedure Only (Routine) - Closed Specialty Diagnoses / Procedures Referred By Contac t Referred To Contact XR IMAGING Diagnoses Bilateral hand pain Procedures XR HAND GENERAL 3V PA/LAT/OBL BILATERAL RADEX HAND MINIMUM 3 VIEWS Dorinda Pichardo PA-C [address] [place] [address] [place] [address] Referral ID Status Reason Start Date Expiration Date V isits Requested Visits Authorized [id number] Closed Auto-Generate d Referral 04/09/2023 05/08/2024 1 1 [facility] Summary Purpose Family History Relationship Condition Age at Onset Recorded Date/T samuel Not Specified Hypertension Unknown father Hodgkin lymphoma Unknown sister Osteoporosis Unknown mother Myocardial infarction Unknown Advance Directives Documents on File Type Date Recorded 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 Advance Directive(s) 01/03/2021 12:16 PM Advance Directive(s) 08/29/2016 11:59 AM Advance Directive Response Recorded Date/ Time Advance Directives Yes September 4:16pm Living Will No March 17, 2022 1 2:13pm Power of Veneer Sander No March 17, 2022 12:13pm Advance Directive Response Recorded Date/ Time Advance Directives Yes September 4:16pm Living Will No March 25, 2022 12:02pm Power of Veneer Sander No March 25 12:02pm Documents on File Type Date 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 Advance Directive(s) 08/29/2016 11:59 AM Advance Directive Response Recorded Date/ Time Advance Directives Yes September 3:16pm Living Will Yes November 19 11:04pm Power of Veneer Sander Yes November 19, 2022 11:04pm Name of Medical Power of Veneer Sander Melissa Benítez November 19, 2022 11:04pm Advance Directive Response Recorded Date/ Time Name of Medical Power of Veneer Sander Melissa Benítez November 20, 2022 12:04am Advance Directives Yes September 4:16pm Living Will Yes November 20 12:04am Power of Veneer Sander Yes November 20, 2022 12:04am Advance Directive Response Recorded Date/ Time Name of Medical Power of Veneer Sander April 01, 2023 2:33pm Advance Directives Yes September 4:16pm Living Will Yes April 01, 2023 2:33pm Power of Veneer Sander Yes April 01 2:33pm Documents on File Type Date 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 Advance Directive(s) 08/29/2016 11:59 AM Advance Directive Response Recorded Date/ Time Advance Directives Yes September 3:16pm Living Will Yes September 07, 2 023 12:13pm Power of Veneer Sander Yes September 07, 2023 12:13pm Name of Medical Power of Veneer Sander melissa benítez silvano barrientos September 07, 2023 12:13pm Advance Directive Response Recorded Date/ Time Advance Directives Yes September 4:16pm Living Will Yes September 07, 2 023 1:13pm Power of Veneer Sander Yes September 07, 2023 1:13pm Medications Administered Section Inactive Administered Medications - up to 3 most recent administrations Medication Order MAR Action Action Date Dose Rate Site zoledronic acid 5 mg PREMIX piggyback (RECLAST) 5 mg, INTRAVENOUS, at 400 mL/hr, Administer over 15 Minutes, ONCE, 1 dose, On Thu02/12/22 at 1600, Hazardous Potential Reproductive Risk Drug: Use appropriate PPE. New Bag/Syringe/Bottle 02/12/2022 3:58 PM EDT 5 mg 400 mL/hr Inactive Administered Medications - up to 3 most recent administrations Medication Order MAR Action Action Date Dose Rate Site BUPivacaine (PF) 0.5 % (5 mg/mL) 1 mL injection 1 mL, Injection - FOR ORTHO USE ONLY, ONE TIME INJECTION, 1 dose, Starting on Liana 06/25/23 at 1302, Until Liana 06/25/23 at 1302 Given 06/25/2023 1:02 PM EDT 1 mL Hand, Left BUPivacaine (PF) 0.5 % (5 mg/mL) 1 mL injection 1 mL, Injection - FOR ORTHO USE ONLY, ONE TIME INJECTION, 1 dose, Starting on Liana 06/25/23 at 1302, Until Liana 06/25/23 at 1302 Given 06/25/2023 1:02 PM EDT 1 mL Hand, Right triamcinolone acetonide 10 mg injection (KeNALog 10) 10 mg, Injection - FOR ORTHO USE ONLY, ONE TIME INJECTION, 1 dose, Starting on Liana 06/25/23 at 1302, Until Liana 06/25/23 at 1302 Given 06/25/2023 1:02 PM EDT 10 mg Hand, Left triamcinolone acetonide 10 mg injection (KeNALog 10) 10 mg, Injection - FOR ORTHO USE ONLY, ONE TIME INJECTION, 1 dose, Starting on Liana 06/25/23 at 1302, Until Liana 06/25/23 at 1302 Given 06/25/2023 1:02 PM EDT 10 mg Hand, Right Chief Complaint and Reason for Visit Chief Complaint OSTEO RIGHT WRIST xray FALL Reason for Visit Right wrist pain Chief Complaint OSTEO RIGHT WRIST xray FALL FALL Reason for Visit Right wrist pain Chief Complaint HYPOTENSION, DIZZINE SS Chief Complaint HYPOTENSION, DIZZINE SS URINE CYTOLOGY BLADDER NEOPLASM Consult E-ORDER Reason for Visit Diarrhea Epigastric pain GERD (gastroesophageal reflux disease) Lower abdominal pain Chief Complaint URINE CYTOLOGY BLADDER NEOPLASM Consult E-ORDER Reason for Visit Diarrhea Epigastric pain GERD (gastroesophageal reflux disease) Lower abdominal pain Chief Complaint ABD PAIN Chief Complaint OSTEO SEE CLINICAL NOTE PER Alvarado CREWS CHINTAN Reason for Visit CHINTAN (obstructive sle ep apnea) Paroxysmal SVT (supraventricular tachycardia) Chest pain Essential (primary) hypertension Chief Complaint OSTEO SEE CLINICAL NOTE PER Alvarado CREWS CHINTAN CP CP Reason for Visit CHINTAN (obstructive sle ep apnea) Paroxysmal SVT (supraventricular tachycardia) Chest pain Essential (primary) hypertension Health Concerns Infection Onset Date Last Indicated Resolved Time COVID-19 Rule-Out 03/25/2023 03/25/2023 03/26/2023 3:43 AM EDT Reason for Referral Specialty Diagnoses / Procedures Referred By Contac t Referred To Contact Diagnoses CHINTAN (obstructive sleep apnea) Procedures CONSULT TO SLEEP MEDICINE - ADULT OFFICE/OUTPATIENT [facility] 60 MINUTES Eunice Joe MD [address] [place] [address] Ruth Dukes APRN.MASTER AUTOMOTIVE GLASS TECHNICIAN [address] [place] [address] Referral ID Status Reason Start Date Expiration Date V isits Requested Visits Authorized [id number] Closed PCP Requested Referral 03/16/2024 03/16/2025 1 1 Additional Source Comments INFORMATION SOURCE (unrecogn ized section and content) DATE CREATED AUTHOR 08/21/2021 [facility] DATE CREATED AUTHOR AUTHOR'S ORGANIZ ATION 05/02/2023 [facility] DATE CREATED AUTHOR AUTHOR'S ORGANIZ ATION 12/25/2023 [facility] DATE CREATED AUTHOR AUTHOR'S ORGANIZ ATION 01/25/2025 [facility] DATE CREATED AUTHOR AUTHOR'S ORGANIZ ATION 02/24/2025 [facility] DATE CREATED AUTHOR AUTHOR'S ORGANIZ ATION 04/12/2025 [facility] DATE CREATED AUTHOR AUTHOR'S ORGANIZ ATION 04/25/2025 [facility] Source Comments (unrecognize d section and content) In the event this informatio n is protected by the Federal Confidentiality of Alcohol and Drug Abuse Patient Records regulations: The Federal rules restrict any use of the information to criminally investigate or prosecute any alcohol or drug abuse patient.[facility] the event this information is protected by the Federal Confidentiality of Alcohol and Drug Abuse Patient Records regulations: The Federal rules restrict any use of the information to criminally investigate or prosecute any alcohol or drug abuse patient.[facility] the event this information is protected by the Federal Confidentiality of Alcohol and Drug Abuse Patient Records regulations: The Federal rules restrict any use of the information to criminally investigate or prosecute any alcohol or drug abuse patient.[facility] the event this information is protected by the Federal Confidentiality of Alcohol and Drug Abuse Patient Records regulations: The Federal rules restrict any use of the information to criminally investigate or prosecute any alcohol or drug abuse patient.[facility] the event this information is protected by the Federal Confidentiality of Alcohol and Drug Abuse Patient Records regulations: The Federal rules restrict any use of the information to criminally investigate or prosecute any alcohol or drug abuse patient.[facility] the event this information is protected by the Federal Confidentiality of Alcohol and Drug Abuse Patient Records regulations: The Federal rules restrict any use of the information to criminally investigate or prosecute any alcohol or drug abuse patient.[facility] the event this information is protected by the Federal Confidentiality of Alcohol and Drug Abuse Patient Records regulations: The Federal rules restrict any use of the information to criminally investigate or prosecute any alcohol or drug abuse patient.[facility] the event this information is protected by the Federal Confidentiality of Alcohol and Drug Abuse Patient Records regulations: The Federal rules restrict any use of the information to criminally investigate or prosecute any alcohol or drug abuse patient.[facility] the event this information is protected by the Federal Confidentiality of Alcohol and Drug Abuse Patient Records regulations: The Federal rules restrict any use of the information to criminally investigate or prosecute any alcohol or drug abuse patient.[facility] CenterIn the event this information is protected by the Federal Confidentiality of Alcohol and Drug Abuse Patient Records regulations: The Federal rules restrict any use of the information to criminally investigate or prosecute any alcohol or drug abuse patient.[facility] CenterIn the event this information is protected by the Federal Confidentiality of Alcohol and Drug Abuse Patient Records regulations: The Federal rules restrict any use of the information to criminally investigate or prosecute any alcohol or drug abuse patient.[facility] CenterIn the event this information is protected by the Federal Confidentiality of Alcohol and Drug Abuse Patient Records regulations: The Federal rules restrict any use of the information to criminally investigate or prosecute any alcohol or drug abuse patient.[facility] CenterIn the event this information is protected by the Federal Confidentiality of Alcohol and Drug Abuse Patient Records regulations: The Federal rules restrict any use of the information to criminally investigate or prosecute any alcohol or drug abuse patient.[facility] CenterIn the event this information is protected by the Federal Confidentiality of Alcohol and Drug Abuse Patient Records regulations: The Federal rules restrict any use of the information to criminally investigate or prosecute any alcohol or drug abuse patient.[facility] CenterIn the event this information is protected by the Federal Confidentiality of Alcohol and Drug Abuse Patient Records regulations: The Federal rules restrict any use of the information to criminally investigate or prosecute any alcohol or drug abuse patient.[facility] CenterIn the event this information is protected by the Federal Confidentiality of Alcohol and Drug Abuse Patient Records regulations: The Federal rules restrict any use of the information to criminally investigate or prosecute any alcohol or drug abuse patient.[facility] CenterIn the event this information is protected by the Federal Confidentiality of Alcohol and Drug Abuse Patient Records regulations: The Federal rules restrict any use of the information to criminally investigate or prosecute any alcohol or drug abuse patient.[facility] CenterIn the event this information is protected by the Federal Confidentiality of Alcohol and Drug Abuse Patient Records regulations: The Federal rules restrict any use of the information to criminally investigate or prosecute any alcohol or drug abuse patient.[facility] CenterIn the event this information is protected by the Federal Confidentiality of Alcohol and Drug Abuse Patient Records regulations: The Federal rules restrict any use of the information to criminally investigate or prosecute any alcohol or drug abuse patient.[facility] CenterIn the event this information is protected by the Federal Confidentiality of Alcohol and Drug Abuse Patient Records regulations: The Federal rules restrict any use of the information to criminally investigate or prosecute any alcohol or drug abuse patient.[facility] CenterIn the event this information is protected by the Federal Confidentiality of Alcohol and Drug Abuse Patient Records regulations: The Federal rules restrict any use of the information to criminally investigate or prosecute any alcohol or drug abuse patient.[facility] CenterIn the event this information is protected by the Federal Confidentiality of Alcohol and Drug Abuse Patient Records regulations: The Federal rules restrict any use of the information to criminally investigate or prosecute any alcohol or drug abuse patient.[facility] CenterIn the event this information is protected by the Federal Confidentiality of Alcohol and Drug Abuse Patient Records regulations: The Federal rules restrict any use of the information to criminally investigate or prosecute any alcohol or drug abuse patient.[facility] CenterIn the event this information is protected by the Federal Confidentiality of Alcohol and Drug Abuse Patient Records regulations: The Federal rules restrict any use of the information to criminally investigate or prosecute any alcohol or drug abuse patient.[facility] CenterIn the event this information is protected by the Federal Confidentiality of Alcohol and Drug Abuse Patient Records regulations: The Federal rules restrict any use of the information to criminally investigate or prosecute any alcohol or drug abuse patient.[facility] CenterIn the event this information is protected by the Federal Confidentiality of Alcohol and Drug Abuse Patient Records regulations: The Federal rules restrict any use of the information to criminally investigate or prosecute any alcohol or drug abuse patient.[facility] CenterIn the event this information is protected by the Federal Confidentiality of Alcohol and Drug Abuse Patient Records regulations: The Federal rules restrict any use of the information to criminally investigate or prosecute any alcohol or drug abuse patient.[facility] CenterIn the event this information is protected by the Federal Confidentiality of Alcohol and Drug Abuse Patient Records regulations: The Federal rules restrict any use of the information to criminally investigate or prosecute any alcohol or drug abuse patient.[facility] CenterIn the event this information is protected by the Federal Confidentiality of Alcohol and Drug Abuse Patient Records regulations: The Federal rules restrict any use of the information to criminally investigate or prosecute any alcohol or drug abuse patient.[facility] CenterIn the event this information is protected by the Federal Confidentiality of Alcohol and Drug Abuse Patient Records regulations: The Federal rules restrict any use of the information to criminally investigate or prosecute any alcohol or drug abuse patient.[facility] CenterIn the event this information is protected by the Federal Confidentiality of Alcohol and Drug Abuse Patient Records regulations: The Federal rules restrict any use of the information to criminally investigate or prosecute any alcohol or drug abuse patient.[facility] CenterIn the event this information is protected by the Federal Confidentiality of Alcohol and Drug Abuse Patient Records regulations: The Federal rules restrict any use of the information to criminally investigate or prosecute any alcohol or drug abuse patient.[facility] CenterIn the event this information is protected by the Federal Confidentiality of Alcohol and Drug Abuse Patient Records regulations: The Federal rules restrict any use of the information to criminally investigate or prosecute any alcohol or drug abuse patient.[facility] CenterIn the event this information is protected by the Federal Confidentiality of Alcohol and Drug Abuse Patient Records regulations: The Federal rules restrict any use of the information to criminally investigate or prosecute any alcohol or drug abuse patient.[facility] CenterIn the event this information is protected by the Federal Confidentiality of Alcohol and Drug Abuse Patient Records regulations: The Federal rules restrict any use of the information to criminally investigate or prosecute any alcohol or drug abuse patient.[facility] CenterIn the event this information is protected by the Federal Confidentiality of Alcohol and Drug Abuse Patient Records regulations: The Federal rules restrict any use of the information to criminally investigate or prosecute any alcohol or drug abuse patient.[facility] CenterIn the event this information is protected by the Federal Confidentiality of Alcohol and Drug Abuse Patient Records regulations: The Federal rules restrict any use of the information to criminally investigate or prosecute any alcohol or drug abuse patient.[facility] CenterIn the event this information is protected by the Federal Confidentiality of Alcohol and Drug Abuse Patient Records regulations: The Federal rules restrict any use of the information to criminally investigate or prosecute any alcohol or drug abuse patient.[facility] CenterIn the event this information is protected by the Federal Confidentiality of Alcohol and Drug Abuse Patient Records regulations: The Federal rules restrict any use of the information to criminally investigate or prosecute any alcohol or drug abuse patient.[facility] CenterIn the event this information is protected by the Federal Confidentiality of Alcohol and Drug Abuse Patient Records regulations: The Federal rules restrict any use of the information to criminally investigate or prosecute any alcohol or drug abuse patient.[facility] CenterIn the event this information is protected by the Federal Confidentiality of Alcohol and Drug Abuse Patient Records regulations: The Federal rules restrict any use of the information to criminally investigate or prosecute any alcohol or drug abuse patient.[facility] CenterIn the event this information is protected by the Federal Confidentiality of Alcohol and Drug Abuse Patient Records regulations: The Federal rules restrict any use of the information to criminally investigate or prosecute any alcohol or drug abuse patient.[facility] CenterIn the event this information is protected by the Federal Confidentiality of Alcohol and Drug Abuse Patient Records regulations: The Federal rules restrict any use of the information to criminally investigate or prosecute any alcohol or drug abuse patient.[facility] CenterIn the event this information is protected by the Federal Confidentiality of Alcohol and Drug Abuse Patient Records regulations: The Federal rules restrict any use of the information to criminally investigate or prosecute any alcohol or drug abuse patient.[facility] CenterIn the event this information is protected by the Federal Confidentiality of Alcohol and Drug Abuse Patient Records regulations: The Federal rules restrict any use of the information to criminally investigate or prosecute any alcohol or drug abuse patient.[facility] CenterIn the event this information is protected by the Federal Confidentiality of Alcohol and Drug Abuse Patient Records regulations: The Federal rules restrict any use of the information to criminally investigate or prosecute any alcohol or drug abuse patient.[facility] CenterIn the event this information is protected by the Federal Confidentiality of Alcohol and Drug Abuse Patient Records regulations: The Federal rules restrict any use of the information to criminally investigate or prosecute any alcohol or drug abuse patient.[facility] CenterIn the event this information is protected by the Federal Confidentiality of Alcohol and Drug Abuse Patient Records regulations: The Federal rules restrict any use of the information to criminally investigate or prosecute any alcohol or drug abuse patient.[facility] CenterIn the event this information is protected by the Federal Confidentiality of Alcohol and Drug Abuse Patient Records regulations: The Federal rules restrict any use of the information to criminally investigate or prosecute any alcohol or drug abuse patient.[facility] CenterIn the event this information is protected by the Federal Confidentiality of Alcohol and Drug Abuse Patient Records regulations: The Federal rules restrict any use of the information to criminally investigate or prosecute any alcohol or drug abuse patient.[facility] CenterIn the event this information is protected by the Federal Confidentiality of Alcohol and Drug Abuse Patient Records regulations: The Federal rules restrict any use of the information to criminally investigate or prosecute any alcohol or drug abuse patient.[facility] CenterIn the event this information is protected by the Federal Confidentiality of Alcohol and Drug Abuse Patient Records regulations: The Federal rules restrict any use of the information to criminally investigate or prosecute any alcohol or drug abuse patient.[facility] CenterIn the event this information is protected by the Federal Confidentiality of Alcohol and Drug Abuse Patient Records regulations: The Federal rules restrict any use of the information to criminally investigate or prosecute any alcohol or drug abuse patient.[facility] CenterIn the event this information is protected by the Federal Confidentiality of Alcohol and Drug Abuse Patient Records regulations: The Federal rules restrict any use of the information to criminally investigate or prosecute any alcohol or drug abuse patient.[facility] CenterIn the event this information is protected by the Federal Confidentiality of Alcohol and Drug Abuse Patient Records regulations: The Federal rules restrict any use of the information to criminally investigate or prosecute any alcohol or drug abuse patient.[facility] CenterIn the event this information is protected by the Federal Confidentiality of Alcohol and Drug Abuse Patient Records regulations: The Federal rules restrict any use of the information to criminally investigate or prosecute any alcohol or drug abuse patient.[facility] CenterIn the event this information is protected by the Federal Confidentiality of Alcohol and Drug Abuse Patient Records regulations: The Federal rules restrict any use of the information to criminally investigate or prosecute any alcohol or drug abuse patient.[facility] CenterIn the event this information is protected by the Federal Confidentiality of Alcohol and Drug Abuse Patient Records regulations: The Federal rules restrict any use of the information to criminally investigate or prosecute any alcohol or drug abuse patient.[facility] CenterIn the event this information is protected by the Federal Confidentiality of Alcohol and Drug Abuse Patient Records regulations: The Federal rules restrict any use of the information to criminally investigate or prosecute any alcohol or drug abuse patient.[facility] CenterIn the event this information is protected by the Federal Confidentiality of Alcohol and Drug Abuse Patient Records regulations: The Federal rules restrict any use of the information to criminally investigate or prosecute any alcohol or drug abuse patient.[facility] CenterIn the event this information is protected by the Federal Confidentiality of Alcohol and Drug Abuse Patient Records regulations: The Federal rules restrict any use of the information to criminally investigate or prosecute any alcohol or drug abuse patient.[facility] CenterIn the event this information is protected by the Federal Confidentiality of Alcohol and Drug Abuse Patient Records regulations: The Federal rules restrict any use of the information to criminally investigate or prosecute any alcohol or drug abuse patient.[facility] CenterIn the event this information is protected by the Federal Confidentiality of Alcohol and Drug Abuse Patient Records regulations: The Federal rules restrict any use of the information to criminally investigate or prosecute any alcohol or drug abuse patient.[facility] CenterIn the event this information is protected by the Federal Confidentiality of Alcohol and Drug Abuse Patient Records regulations: The Federal rules restrict any use of the information to criminally investigate or prosecute any alcohol or drug abuse patient.[facility] CenterIn the event this information is protected by the Federal Confidentiality of Alcohol and Drug Abuse Patient Records regulations: The Federal rules restrict any use of the information to criminally investigate or prosecute any alcohol or drug abuse patient.[facility] CenterIn the event this information is protected by the Federal Confidentiality of Alcohol and Drug Abuse Patient Records regulations: The Federal rules restrict any use of the information to criminally investigate or prosecute any alcohol or drug abuse patient.[facility] CenterIn the event this information is protected by the Federal Confidentiality of Alcohol and Drug Abuse Patient Records regulations: The Federal rules restrict any use of the information to criminally investigate or prosecute any alcohol or drug abuse patient.[facility] CenterIn the event this information is protected by the Federal Confidentiality of Alcohol and Drug Abuse Patient Records regulations: The Federal rules restrict any use of the information to criminally investigate or prosecute any alcohol or drug abuse patient.[facility] CenterIn the event this information is protected by the Federal Confidentiality of Alcohol and Drug Abuse Patient Records regulations: The Federal rules restrict any use of the information to criminally investigate or prosecute any alcohol or drug abuse patient.[facility] CenterIn the event this information is protected by the Federal Confidentiality of Alcohol and Drug Abuse Patient Records regulations: The Federal rules restrict any use of the information to criminally investigate or prosecute any alcohol or drug abuse patient.[facility] CenterIn the event this information is protected by the Federal Confidentiality of Alcohol and Drug Abuse Patient Records regulations: The Federal rules restrict any use of the information to criminally investigate or prosecute any alcohol or drug abuse patient.[facility] CenterIn the event this information is protected by the Federal Confidentiality of Alcohol and Drug Abuse Patient Records regulations: The Federal rules restrict any use of the information to criminally investigate or prosecute any alcohol or drug abuse patient.[facility] CenterIn the event this information is protected by the Federal Confidentiality of Alcohol and Drug Abuse Patient Records regulations: The Federal rules restrict any use of the information to criminally investigate or prosecute any alcohol or drug abuse patient.[facility] CenterIn the event this information is protected by the Federal Confidentiality of Alcohol and Drug Abuse Patient Records regulations: The Federal rules restrict any use of the information to criminally investigate or prosecute any alcohol or drug abuse patient.[facility] CenterIn the event this information is protected by the Federal Confidentiality of Alcohol and Drug Abuse Patient Records regulations: The Federal rules restrict any use of the information to criminally investigate or prosecute any alcohol or drug abuse patient.[facility] CenterIn the event this information is protected by the Federal Confidentiality of Alcohol and Drug Abuse Patient Records regulations: The Federal rules restrict any use of the information to criminally investigate or prosecute any alcohol or drug abuse patient.[facility] CenterIn the event this information is protected by the Federal Confidentiality of Alcohol and Drug Abuse Patient Records regulations: The Federal rules restrict any use of the information to criminally investigate or prosecute any alcohol or drug abuse patient.[facility] CenterIn the event this information is protected by the Federal Confidentiality of Alcohol and Drug Abuse Patient Records regulations: The Federal rules restrict any use of the information to criminally investigate or prosecute any alcohol or drug abuse patient.[facility] CenterIn the event this information is protected by the Federal Confidentiality of Alcohol and Drug Abuse Patient Records regulations: The Federal rules restrict any use of the information to criminally investigate or prosecute any alcohol or drug abuse patient.[facility] CenterIn the event this information is protected by the Federal Confidentiality of Alcohol and Drug Abuse Patient Records regulations: The Federal rules restrict any use of the information to criminally investigate or prosecute any alcohol or drug abuse patient.[facility] CenterIn the event this information is protected by the Federal Confidentiality of Alcohol and Drug Abuse Patient Records regulations: The Federal rules restrict any use of the information to criminally investigate or prosecute any alcohol or drug abuse patient.[facility] CenterIn the event this information is protected by the Federal Confidentiality of Alcohol and Drug Abuse Patient Records regulations: The Federal rules restrict any use of the information to criminally investigate or prosecute any alcohol or drug abuse patient.[facility] CenterIn the event this information is protected by the Federal Confidentiality of Alcohol and Drug Abuse Patient Records regulations: The Federal rules restrict any use of the information to criminally investigate or prosecute any alcohol or drug abuse patient.[facility] CenterIn the event this information is protected by the Federal Confidentiality of Alcohol and Drug Abuse Patient Records regulations: The Federal rules restrict any use of the information to criminally investigate or prosecute any alcohol or drug abuse patient.[facility] CenterIn the event this information is protected by the Federal Confidentiality of Alcohol and Drug Abuse Patient Records regulations: The Federal rules restrict any use of the information to criminally investigate or prosecute any alcohol or drug abuse patient.[facility] CenterIn the event this information is protected by the Federal Confidentiality of Alcohol and Drug Abuse Patient Records regulations: The Federal rules restrict any use of the information to criminally investigate or prosecute any alcohol or drug abuse patient.[facility] Reason for Visit (unrecogniz ed section and content) Reason Comments F/U 6 months Reason Onset Date Comments Refill Request 01/16/2022 Reason Comments Non-Chemotherapy Treatment Specialty Diagnoses / Procedures Referred By Contac t Referred To Contact Diagnoses Osteoporosis with current pathological fracture with routine healing, unspecified osteoporosis type, subsequent encounter Cervical disc disorder of mid-cervical region Spinal stenosis, lumbar region, without neurogenic claudication Eunice Joe MD [address] [place] [address] [facility] [address] [place] [address] Referral ID Status Reason Start Date Expiration Date V isits Requested Visits Authorized [id number] Authorized 01/29/2021 04/29/2021 99 99 Reason Onset Date Comments Refill Request 02/18/2022 Reason Comments Patient Update Reason Comments Breathing Problem Reason Onset Date Comments Refill Request 05/11/2022 Reason Comments Spirometry Specialty Diagnoses / Procedures Referred By Contac t Referred To Contact [facility] Diagnoses SOBOE (shortness of breath on exertion) Procedures SPIROMETRY WITH DILATOR IF OBSTRUCTED BRNCDILAT RSPSE SPMTRY PRE&POST-BRNCDILAT ADMN Aminta Horvath, HAND FRAME [employer]IC K[employer]ITTER.[employer]ASING MANAGER [address] [place] [address] Respiratory Downs [address] [place] [address] Referral ID Status Reason Start Date Expiration Date V isits Requested Visits Authorized [id number] Closed Auto-Generate d Referral 05/06/2022 06/05/2023 1 1 Reason Onset Date Comments Refill Request 07/15/2022 Reason Comments Faxed to Dr. Avina Reason Comments ED Follow-up 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 Reason Comments Pre-Op Exam form Reason Comments Pre-Op Forms Reason Onset Date Comments Refill Request 02/25/2023 Reason Comments Sore Throat ST, GUTIERRES, bodyaches an d cough x 1 day Reason Comments Results Reason Comments New Pain Reason Onset Date Comments Refill Request 05/11/2023 Reason Onset Date Comments Refill Request 05/22/2023 Reason Onset Date Comments Refill Request 06/17/2023 Reason Comments Follow Up 8 week 1 day post vi sit CTS CMS arthritis , Psuedo gout - unable to complete EMG testing Follow Up 8 week, 1 day post v isit CTS, Psuedo gout - unable to complete EMG testing Reason Onset Date Comments Refill Request 06/29/2023 Reason Comments Chest Congestion Cough, SOB, cough hu rts chest, x 8 days Reason Onset Date Comments Refill Request 08/12/2023 Reason Comments Follow Up fell on Thursday - had some dizziness after the fall improved now, right shoulder brutisis, review labs Reason Onset Date Comments Refill Request 01/25/2024 Reason Onset Date Comments Refill Request 02/08/2024 Reason Onset Date Comments Refill Request 02/22/2024 Reason Comments Headache Reason Comments New Patient Evaluation Specialty Diagnoses / Procedures Referred By Renate yanez Referred To Contact Diagnoses CHINTAN (obstructive sleep apnea) Procedures CONSULT TO SLEEP MEDICINE - ADULT OFFICE/OUTPATIENT NEW HIGH [facility] 60 MINUTES Eunice Joe MD [address] [place] [address] Ruth Dukes, HAND FRAME SURGICAL ELASTIC KNITTER.MASTER AUTOMOTIVE GLASS TECHNICIAN [address] [place] [address] Referral ID Status Reason Start Date Expiration Date V isits Requested Visits Authorized [id number] Closed PCP Requested Referral 03/16/2024 03/16/2025 1 1 Reason Onset Date Comments Refill Request 04/11/2024 Reason Comments Established Patient 4-5 month follow up with labs prior Reason Onset Date Comments Refill Request 04/17/2024 Reason Onset Date Comments Refill Request 05/18/2024 Reason Comments Sore Throat 4-5 weeks has notice d blisters in mouth has noticed post nasal drip and feels nauseated.04/30/24 did test + for COVID as of today is testing negative.Continues with body aches and headaches Reason Onset Date Comments Refill Request 06/14/2024 Reason Comments Memory Loss Reason Comments Established Patient Since April 2024 has had symptoms Reason Comments F/U 4 month Reason Comments Orders Reason Comments Follow Up 31-90 day compliance appointment, has chronic back pain and it is difficult for her to get comfortable, states the machine is making her anxious Reason Onset Date Comments Refill Request 11/14/2024 Reason Comments 4 month f/u Reason Comments Pain worst of the pain is hands, shoulder, hips and knees. Cough did start with a dry cough this am. Has a tickle in her throatslight headache Reason Comments Head Congestion GUTIERRES, ST, cough x8 day s Reason Onset Date Comments Refill Request 01/12/2025 Reason Onset Date Comments Refill Request 02/08/[address] Georges Michele Dentist office requesting re cords Reason Comments Pain Established Patient Follow Up Reason Comments Shortness of Breath Reason Comments Cough Chest congestion, SO B, wheeze, tightness in chest, dry cough, sore throat, headache, low grade fever x 4 days Reason Onset Date Comments Refill Request 03/17/2025 Reason Comments 6 month f/up Reason Comments Patient Update Specialty Diagnoses / Procedures Referred By Renate yanez Referred To Contact [facility] Diagnoses Chronic cough Procedures NITRIC OXIDE, EXHALED NITRIC OXIDE GAS DETERMINATION Eunice Joe MD [address] [place] [address] Phone: tel: fax: [facility] [address] [place] [address] Referral ID Status Reason Start Date Expiration Date V isits Requested Visits Authorized [id number] Closed Auto-Generate d Referral 04/20/2025 05/20/2026 1 1 Specialty Diagnoses / Procedures Referred By Contsaeid t Referred To Contact [facility] Diagnoses Chronic cough Procedures LUNG VOLUMES Eunice Joe MD [address] [place] [address] Phone: tel: fax: [facility] [address] [place] [address] Referral ID Status Reason Start Date Expiration Date V isits Requested Visits Authorized [id number] Closed Auto-Generate d Referral 04/20/2025 05/20/2026 1 1 Specialty Diagnoses / Procedures Referred By Contac t Referred To Contact [facility] Diagnoses Chronic cough Procedures SPIROMETRY - BASELINE AND POST DILATOR BRNCDILAT RSPSE SPMTRY PRE&POST-BRNCDILAT ADMN Eunice Joe MD [address] [place] [address] Phone: tel: fax: [facility] [address] [place] [address] Referral ID Status Reason Start Date Expiration Date V isits Requested Visits Authorized [id number] Closed Auto-Generate d Referral 04/20/2025 05/20/2026 1 1 Care Teams (unrecognized sec tion and content) Pharmacist Helper Relationship Specialty Start Date End Date Eunice Joe MD [address] [place] [address] PCP - General 12/21/02 Pharmacist Helper Relationship Specialty Start Date End Date Eunice Joe MD [address] [place] [address] PCP - General 12/21/02 Pharmacist Helper Relationship Specialty Start Date End Date Eunice Joe MD [address] [place] [address] PCP - General 12/21/02 Pharmacist Helper Relationship Specialty Start Date End Date Eunice Joe MD [address] [place] [address] PCP - General 12/21/02 Pharmacist Helper Relationship Specialty Start Date End Date Eunice Joe MD [address] [place] [address] PCP - General 12/21/02 Pharmacist Helper Relationship Specialty Start Date End Date Eunice Joe MD [address] [place] [address] PCP - General 12/21/02 Pharmacist Helper Relationship Specialty Start Date End Date Eunice Joe MD [address] [place] [address] PCP - General 12/21/02 Pharmacist Helper Relationship Specialty Start Date End Date Eunice Joe MD [address] [place] [address] PCP - General 12/21/02 Team Status: Active Member Role Status Dates Dr. Eunice Joe MD Family Provider Active Dr. Eunice Joe MD Primary Care Provider Active Team Status: Inactive Member Role Status Dates Dr. Eunice Joe MD Primary Care Provider Active Dr. Tanya Aceves MD Emergency Provider Active Pharmacist Helper Relationship Specialty Start Date End Date Eunice Joe MD [address] [place] [address] PCP - General 12/21/02 Team Status: Inactive Member Role Status Dates Dr. Eunice Joe MD Primary Care Provider, Referr ing Provider Active Ruth Dukes STORE ASSOCIATE, STORE ASSOCIATE-C Attending Provider Active Team Status: Inactive Member Role Status Dates Dr. Eunice Joe MD Primary Care Provider Active Dr. Tanya Aceves MD Attending Provider, Emergency Provider Active Team Status: Inactive Member Role Status Dates Dr. Tara Guzman MD Attending Provider Active Team Status: Inactive Member Role Status Dates Dr. Eunice Joe MD Primary Care Provider Active Dr. Tara Guzman MD Attending Provider, Referring P nancy Active Team Status: Inactive Member Role Status Dates Dr. Eunice Joe MD Primary Care Provider Active Ruth Dukes STORE ASSOCIATE, STORE ASSOCIATE-C Attending Provider, Referrin g Provider Active Team Status: Active Member Role Status Dates Dr. Eunice Joe MD Primary Care Provider Active Ruth Dukes STORE ASSOCIATE, STORE ASSOCIATE-C Attending Provider Active Team Status: Inactive Member Role Status Dates Dr. Eunice Joe MD Primary Care Provider Active Ruth Dukes STORE ASSOCIATE, STORE ASSOCIATE-C Attending Provider Active Pharmacist Helper Relationship Specialty Start Date End Date Eunice Joe MD [address] [place] [address] PCP - General 12/21/02 Pharmacist Helper Relationship Specialty Start Date End Date Eunice Joe MD [address] [place] [address] PCP - General 12/21/02 Pharmacist Helper Relationship Specialty Start Date End Date Eunice Joe MD [address] [place] [address] PCP - General 12/21/02 Pharmacist Helper Relationship Specialty Start Date End Date Eunice Joe MD [address] [place] [address] PCP - General 12/21/02 Pharmacist Helper Relationship Specialty Start Date End Date Eunice Joe MD [address] [place] [address] PCP - General 12/21/02 Pharmacist Helper Relationship Specialty Start Date End Date Eunice Joe MD [address] [place] [address] PCP - General 12/21/02 Team Status: Active Member Role Status Dates Dr. Eunice Joe MD Primary Care Provider, Referr ing Provider Active Dr. Shabbir Avina DO Attending Provider, Other Prov ider Active Team Status: Inactive Member Role Status Dates Dr. Eunice Joe MD Primary Care Provider, Referr ing Provider Active Dr. Shabbir Avina DO Attending Provider Active Pharmacist Helper Relationship Specialty Start Date End Date Eunice Joe MD [address] [place] [address] PCP - General 12/21/02 Pharmacist Helper Relationship Specialty Start Date End Date Eunice Joe MD [address] [place] [address] PCP - General 12/21/02 Pharmacist Helper Relationship Specialty Start Date End Date Eunice Joe MD [address] [place] [address] PCP - General 12/21/02 Pharmacist Helper Relationship Specialty Start Date End Date Eunice Joe MD [address] [place] [address] PCP - General 12/21/02 Pharmacist Helper Relationship Specialty Start Date End Date Eunice Joe MD [address] [place] [address] PCP - General 12/21/02 Pharmacist Helper Relationship Specialty Start Date End Date Eunice Joe MD [address] [place] [address] PCP - General 12/21/02 Pharmacist Helper Relationship Specialty Start Date End Date Eunice Joe MD [address] [place] [address] PCP - General 12/21/02 Pharmacist Helper Relationship Specialty Start Date End Date Eunice Joe MD [address] [place] [address] PCP - General 12/21/02 Pharmacist Helper Relationship Specialty Start Date End Date Eunice Joe MD [address] [place] [address] PCP - General 12/21/02 Pharmacist Helper Relationship Specialty Start Date End Date Eunice Joe MD [address] [place] [address] PCP - General 12/21/02 Pharmacist Helper Relationship Specialty Start Date End Date Eunice Joe MD [address] [place] [address] PCP - General 12/21/02 Team Status: Inactive Member Role Status Dates Dr. Eunice Joe MD Primary Care Provider Active Dr. Chun Randolph DO Emergency Provider Active Pharmacist Helper Relationship Specialty Start Date End Date Eunice Joe MD [address] [place] [address] PCP - General 12/21/02 Team Status: Inactive Member Role Status Dates Dr. Eunice Joe MD Primary Care Provider, Referr ing Provider Active Jayden Reyes PA, PA Attending Provider Active Team Status: Inactive Member Role Status Dates Dr. Eunice Joe MD Primary Care Pr ovider, Attending Provider, Referring Provider Active Team Status: Inactive Member Role Status Dates Dr. Eunice Joe MD Primary Care Provider Active Jayden Reyes PA, PA Attending Provider, Referr ing Provider Active Team Status: Active Member Role Status Dates Dr. Eunice Joe MD Primary Care Provider Active Jayden Reyes PA, PA Referring Provider, Other Provider Active Dr. Ar Young MD Attending Provider Active Pharmacist Helper Relationship Specialty Start Date End Date Eunice Joe MD [address] [place] [address] PCP - General 12/21/02 Pharmacist Helper Relationship Specialty Start Date End Date Eunice Joe MD [address] [place] [address] PCP - General 12/21/02 Pharmacist Helper Relationship Specialty Start Date End Date Eunice Joe MD [address] [place] [address] PCP - General 12/21/02 Pharmacist Helper Relationship Specialty Start Date End Date Eunice Joe MD [address] [place] [address] PCP - General 12/21/02 Pharmacist Helper Relationship Specialty Start Date End Date Eunice Joe MD [address] [place] [address] PCP - General 12/21/02 Pharmacist Helper Relationship Specialty Start Date End Date Eunice Joe MD [address] [place] [address] PCP - General 12/21/02 Pharmacist Helper Relationship Specialty Start Date End Date Eunice Joe MD [address] [place] [address] PCP - General 12/21/02 Pharmacist Helper Relationship Specialty Start Date End Date Eunice Joe MD [address] [place] [address] PCP - General 12/21/02 Pharmacist Helper Relationship Specialty Start Date End Date Eunice Joe MD [address] [place] [address] PCP - General 12/21/02 Pharmacist Helper Relationship Specialty Start Date End Date Eunice Joe MD [address] [place] [address] PCP - General 12/21/02 Aminta Horvath, HAND FRAME SURGICAL ELASTIC KNITTER.COMMERCIAL LEASING MANAGER [address] [place] [address] Airport Location Manager Internal Medicine 09/19/24 Abner Denny HAND FRAME SURGICAL ELASTIC KNITTER.MASTER AUTOMOTIVE GLASS TECHNICIAN [address] [place] [address] Airport Location Manager Internal Medicine 09/19/24 Pharmacist Helper Relationship Specialty Start Date End Date Eunice Joe MD [address] [place] [address] PCP - General 12/21/02 Aminta Horvath, HAND FRAME SURGICAL ELASTIC KNITTER.COMMERCIAL LEASING MANAGER [address] [place] [address] Airport Location Manager Internal Medicine 09/19/24 Abner Denny HAND FRAME SURGICAL ELASTIC KNITTER.MASTER AUTOMOTIVE GLASS TECHNICIAN [address] [place] [address] Airport Location Manager Internal Medicine 09/19/24 Pharmacist Helper Relationship Specialty Start Date End Date Eunice Joe MD [address] [place] [address] PCP - General 12/21/02 Aminta Horvath, HAND FRAME SURGICAL ELASTIC KNITTER.COMMERCIAL LEASING MANAGER [address] [place] [address] Airport Location Manager Internal Medicine 09/19/24 Abner Denny HAND FRAME SURGICAL ELASTIC KNITTER.MASTER AUTOMOTIVE GLASS TECHNICIAN [address] [place] [address] Airport Location Manager Internal Medicine 09/19/24 Pharmacist Helper Relationship Specialty Start Date End Date Eunice Joe MD [address] [facility] [place] [address] PCP - General 12/21/02 Aminta Horvath, HAND FRAME SURGICAL ELASTIC KNITTER.COMMERCIAL LEASING MANAGER [address] [place] [address] Airport Location Manager Internal Medicine 09/19/24 Abner Denny HAND FRAME SURGICAL ELASTIC KNITTER.MASTER AUTOMOTIVE GLASS TECHNICIAN [address] [place] [address] [facility] Internal Medicine 09/19/24 Pharmacist Helper Relationship Specialty Start Date End Date Eunice Joe MD [address] [place] [address] PCP - General 12/21/02 Aminta Horvath, HAND FRAME SURGICAL ELASTIC KNITTER.COMMERCIAL LEASING MANAGER [address] [facility] [place] [address] Airport Location Manager Internal Medicine 09/19/24 Abner Denny, HAND FRAME SURGICAL ELASTIC KNITTER.MASTER AUTOMOTIVE GLASS TECHNICIAN [address] [place] [address] Airport Location Manager Internal Medicine 09/19/24 Pharmacist Helper Relationship Specialty Start Date End Date Eunice Joe MD [address] [place] [address] PCP - General 12/21/02 Aminta Horvath, HAND FRAME SURGICAL ELASTIC KNITTER.COMMERCIAL LEASING MANAGER [address] [place] [address] Airport Location Manager Internal Medicine 09/19/24 Abner Denny HAND FRAME SURGICAL ELASTIC KNITTER.MASTER AUTOMOTIVE GLASS TECHNICIAN [address] [place] [address] [facility] Internal Medicine 09/19/24 Pharmacist Helper Relationship Specialty Start Date End Date Eunice Joe MD [address] [place] [address] PCP - General 12/21/02 Aminta Horvath, HAND FRAME SURGICAL ELASTIC KNITTER.COMMERCIAL LEASING MANAGER [address] [place] [address] Airport Location Manager Internal Medicine 09/19/24 Abner Denny HAND FRAME SURGICAL ELASTIC KNITTER.MASTER AUTOMOTIVE GLASS TECHNICIAN [address] [place] [address] [facility] Internal Medicine 09/19/24 Pharmacist Helper Relationship Specialty Start Date End Date Eunice Joe MD [address] [place] [address] PCP - General 12/21/02 Aminta Horvath, HAND FRAME SURGICAL ELASTIC KNITTER.COMMERCIAL LEASING MANAGER [address] [place] [address] [facility] Internal Medicine 09/19/24 Pharmacist Helper Relationship Specialty Start Date End Date Eunice Joe MD [address] [place] [address] PCP - General 12/21/02 Aminta Horvath, HAND FRAME SURGICAL ELASTIC KNITTER.COMMERCIAL LEASING MANAGER [address] [place] [address] [facility] Internal Medicine 09/19/24 Abner Denny HAND FRAME SURGICAL ELASTIC KNITTER.MASTER AUTOMOTIVE GLASS TECHNICIAN [address] [place] [address] Airport Location Manager Internal Medicine 01/03/25 Pharmacist Helper Relationship Specialty Start Date End Date Eunice Joe MD [address] [place] [address] PCP - General 12/21/02 Aminta Horvath APRN.COMMERCIAL LEASING MANAGER [address] [place] [address] Airport Location Manager Internal Medicine 09/19/24 Abner Denny APRN.MASTER AUTOMOTIVE GLASS TECHNICIAN [address] [place] [address] Airport Location Manager Internal Medicine 09/19/24 12/30/24 Abner Denny APRN.MASTER AUTOMOTIVE GLASS TECHNICIAN [address] [place] [address] Airport Location Manager Internal Medicine 01/03/25 Pharmacist Helper Relationship Specialty Start Date End Date Eunice Joe MD [address] [place] [address] PCP - General 12/21/02 Aminta Horvath HAND FRAME SURGICAL ELASTIC KNITTER.COMMERCIAL LEASING MANAGER [address] [place] [address] Airport Location Manager Internal Medicine 09/19/24 Abner Denny APRN.MASTER AUTOMOTIVE GLASS TECHNICIAN [address] [place] [address] Airport Location Manager Internal Medicine 01/03/25 Pharmacist Helper Relationship Specialty Start Date End Date Eunice Joe MD [address] [place] [address] PCP - General 12/21/02 Aminta Horvath, HAND FRAME SURGICAL ELASTIC KNITTER.COMMERCIAL LEASING MANAGER [address] [place] [address] Airport Location Manager Internal Medicine 09/19/24 Abner Denny HAND FRAME SURGICAL ELASTIC KNITTER.MASTER AUTOMOTIVE GLASS TECHNICIAN [address] [place] [address] Airport Location Manager Internal Medicine 01/03/25 Pharmacist Helper Relationship Specialty Start Date End Date Eunice Joe MD [address] [place] [address] PCP - General 12/21/02 Aminta Horvath, HAND FRAME SURGICAL ELASTIC KNITTER.COMMERCIAL LEASING MANAGER [address] [place] [address] Airport Location Manager Internal Medicine 09/19/24 Abner Denny HAND FRAME SURGICAL ELASTIC KNITTER.MASTER AUTOMOTIVE GLASS TECHNICIAN [address] [place] [address] [facility] Internal Medicine 01/03/25 Pharmacist Helper Relationship Specialty Start Date End Date Eunice Joe MD [address] [place] [address] PCP - General 12/21/02 Aminta Horvath, HAND FRAME SURGICAL ELASTIC KNITTER.COMMERCIAL LEASING MANAGER [address] [place] [address] Airport Location Manager Internal Medicine 09/19/24 Abner Denny HAND FRAME SURGICAL ELASTIC KNITTER.MASTER AUTOMOTIVE GLASS TECHNICIAN [address] [place] [address] Airport Location Manager Internal Medicine 01/03/25 Pharmacist Helper Relationship Specialty Start Date End Date Eunice Joe MD [address] [place] [address] PCP - General 12/21/02 Abner Denny APRN.MASTER AUTOMOTIVE GLASS TECHNICIAN [address] [place] [address] Airport Location Manager Internal Medicine 01/03/25 Aminta Horvath, HAND FRAME SURGICAL ELASTIC KNITTER.COMMERCIAL LEASING MANAGER [address] [place] [address] Airport Location Manager Internal Medicine 03/01/25 Pharmacist Helper Relationship Specialty Start Date End Date Eunice Joe MD [address] [place] [address] PCP - General 12/21/02 Abner Denny HAND FRAME SURGICAL ELASTIC KNITTER.MASTER AUTOMOTIVE GLASS TECHNICIAN [address] [place] [address] Airport Location Manager Internal Medicine 01/03/25 Aminta Horvath, HAND FRAME SURGICAL ELASTIC KNITTER.COMMERCIAL LEASING MANAGER [address] [place] [address] Airport Location Manager Internal Medicine 03/01/25 Pharmacist Helper Relationship Specialty Start Date End Date Eunice Joe MD [address] [place] [address] PCP - General 12/21/02 Abner Denny APRN.MASTER AUTOMOTIVE GLASS TECHNICIAN [address] [place] [address] Airport Location Manager Internal Medicine 01/03/25 Aminta Horvath, HAND FRAME SURGICAL ELASTIC KNITTER.COMMERCIAL LEASING MANAGER [address] [place] [address] Airport Location Manager Internal Medicine 03/01/25 Pharmacist Helper Relationship Specialty Start Date End Date Eunice Joe MD [address] [place] [address] PCP - General 12/21/02 Abner Denny HAND FRAME SURGICAL ELASTIC KNITTER.MASTER AUTOMOTIVE GLASS TECHNICIAN [address] [place] [address] Airport Location Manager Internal Medicine 01/03/25 Aminta Horvath, HAND FRAME SURGICAL ELASTIC KNITTER.COMMERCIAL LEASING MANAGER [address] [place] [address] Airport Location Manager Internal Medicine 03/01/25 Pharmacist Helper Relationship Specialty Start Date End Date Eunice Joe MD [address] [place] [address] PCP - General 12/21/02 Abner Denny HAND FRAME SURGICAL ELASTIC KNITTER.MASTER AUTOMOTIVE GLASS TECHNICIAN [address] [place] [address] Airport Location Manager Internal Medicine 01/03/25 Aminta Horvath, HAND FRAME SURGICAL ELASTIC KNITTER.COMMERCIAL LEASING MANAGER [address] [place] [address] Airport Location Manager Internal Medicine 03/01/25 Pharmacist Helper Relationship Specialty Start Date End Date Eunice Joe MD [address] [place] [address] PCP - General 12/21/02 Abner Denny HAND FRAME SURGICAL ELASTIC KNITTER.MASTER AUTOMOTIVE GLASS TECHNICIAN [address] [place] [address] Airport Location Manager Internal Medicine 01/03/25 Aminta Horvath, HAND FRAME SURGICAL ELASTIC KNITTER.COMMERCIAL LEASING MANAGER [address] [place] [address] [facility] Internal Medicine 03/01/25 Pharmacist Helper Relationship Specialty Start Date End Date Eunice Joe MD [address] [place] [address] PCP - General 12/21/02 Abner Denny HAND FRAME SURGICAL ELASTIC KNITTER.MASTER AUTOMOTIVE GLASS TECHNICIAN [address] [place] [address] Airport Location Manager Internal Medicine 01/03/25 Aminta Horvath, HAND FRAME SURGICAL ELASTIC KNITTER.COMMERCIAL LEASING MANAGER [address] [place] [address] [facility] Internal Medicine 03/01/25 Pharmacist Helper Relationship Specialty Start Date End Date Eunice Joe MD [address] [place] [address] PCP - General 12/21/02 Abner Denny, HAND FRAME SURGICAL ELASTIC KNITTER.MASTER AUTOMOTIVE GLASS TECHNICIAN [address] [place] [address] [facility] Internal Medicine 01/03/25 Aminta Horvath, HAND FRAME SURGICAL ELASTIC KNITTER.COMMERCIAL LEASING MANAGER [address] [place] [address] [facility] Internal Medicine 03/01/25 Pharmacist Helper Relationship Specialty Start Date End Date Eunice Joe MD [address] [place] [address] PCP - General 12/21/02 Abner Denny APRN.MASTER AUTOMOTIVE GLASS TECHNICIAN [address] [place] [address] [facility] Internal Medicine 01/03/25 Aminta Horvath APRN.COMMERCIAL LEASING MANAGER [address] [place] [address] [facility] Internal Medicine 03/01/25 FOR RECORDS PERTAINING TO PATIENTS WHO ARE OR HAVE BEEN ENROLLED IN A CHEMICAL DEPENDENCY/SUBSTANCEABUSE PROGRAM, SOME INFORMATION MAY BE OMITTED. This clinical summary was aggregated from multiple sources. Caution should be exercised in using it in the provision of clinical care. This summary normalizes information from multiple sources, and as a consequence, information in this document may materially change the coding, format and clinical context of patient data. In addition, data may be omitted in some cases. CLINICAL DECISIONS SHOULD BE BASED ON THE PRIMARY CLINICAL RECORDS. [employer] provides no warranty or guarantee of the accuracy or completeness of information in this document.
[2025-05-03 22:15] VITALS: BP 133/55; PULSE 67; RESP 17; O2SAT 96
[2025-05-03] MEDS: Pantoprazole Sodium 40 MG in 0.9% Normal Saline (100mL MB+) 100 ML 300 MG IV (22:16)
[2025-05-03] MEDS: Lidocaine 2% Viscous15 ML UDC 15 ML PO (22:16)
--- NOTE | 2025-05-03 22:27 | RAD_ITS ---
PROCEDURE: CHEST PA AND LATERAL 05/03/2025 REASON FOR EXAM: CHEST PAIN TECHNIQUE: CHEST PA AND LATERAL COMPARISON: 09/01/2021 FINDINGS: Lungs/Pleura: No focal airspace consolidation, pneumothorax or pleural effusion. Mild left basilar subsegmental atelectasis. Heart/Mediastinum: Mild cardiomegaly. Moderate-large hiatal hernia. Bones/Soft tissues: Degenerative changes of the spine with advanced S-shaped thoracolumbar scoliosis. Chronic lumbar compression fracture deformities with kyphoplasty bone cement. RAD/Chest PA and Lateral IMPRESSION: 1. No evidence of acute pulmonary disease. Mild cardiomegaly. 2. Redemonstrated moderate-large hiatal hernia, with mild left basilar atelecta sis. 3. Severe thoracolumbar scoliosis. Reading Location: [id number]
[2025-05-03 22:30] VITALS: BP 139/68; PULSE 68; RESP 16; O2SAT 96
[2025-05-03 22:42] LABS: Troponin T High Sensitivity 9 ng/L (<=14)
[2025-05-03 22:43] LABS: Hematocrit 36.6 % (37-47); Hemoglobin 11.5 g/dL (12.0-15.0); Immature Granulocytes Count 0.030 X10^3/uL (0.0-0.0); Lipase 39 U/L (13-75); Mean Corp Hgb Conc 31.4 g/dL (32-36); Mean Corpuscular Volume 88.4 fL (81-99); Mean Platelet Vol. 9.5 fl (6.2-12.0); NRBC Flagged by Analyzer 0 % (0-5); Platelet Count 425 K/mm3 (150-450); RBC Distribution Width CV 15.8 % (11.6-14.6); RBC Distribution Width SD 51.3 fl (35.1-43.9); Red Blood Count 4.14 M/mm3 (4.2-5.4); White Blood Count 7.0 K/mm3 (4.4-11.0)
[2025-05-03 22:44] LABS: AST(SGOT) 18 U/L (<=31); Alanine Aminotransfer ALT/SGPT 12 U/L (<=34); Albumin, Serum 4.4 g/dL (3.4-4.8); Alkaline Phosphatase 70 U/L (35-104); Anion Gap 12 (5-15); BUN 9 mg/dL (4-19); BUN/Creat Ratio 9.5 RATIO (10-20); Bilirubin, Direct < 0.08 mg/dL (0.00-0.30); Calcium,Total 9.3 mg/dL (7.6-11.0); Carbon Dioxide 24.5 mmol/L (21.0-32.0); Chloride 105 mmol/L (98-108); Estimated Creatinine Clearance 45.67 ml/min (50-250); Globulin 2.6 g/dL (2.2-4.2); Glucose 81 mg/dL (70-99); Potassium 3.9 mmol/L (3.3-5.1)
[2025-05-03 23:00] VITALS: BP 115/75; PULSE 61; RESP 18; O2SAT 96
[2025-05-03 23:57] LABS: Troponin T High Sens 2 HR 8 ng/L (<=14)
--- NOTE | 2025-05-04 00:07 | EX.ED.DYSGE1 ---
HPI History of Present Illness Chief Complaint: Chest Pain Informant: patient and spouse/S.O. Narrative Narrative: Patient is a 74-year-old female with past medical history of hypothyroidism and hyperlipidemia. She also reports having a "large hiatal hernia". She states that she was in bed roughly 1 to 2 hours prior to arrival when she felt a pain and burning sensation radiate from her upper abdomen through her chest. She states this lasted for about 10 minutes and then she noticed a vague discomfort along the left side of her chest. She states there is no associated nausea vomiting diaphoresis or shortness of breath. However she is unsure if this is potential cardiac or related to her hiatal hernia and therefore she comes in for evaluation. [facility] Medical History Vitamin D deficiency History of Clostridium difficile infection Cancer Thyroid disease Osteoarthritis High cholesterol Injury of back History of hiatal hernia History of IBS Non-smoker Leg cramps History of echocardiogram History of stress test Cardiology follow-up encounter Medullary sponge kidney Internal hemorrhoids Fibromyalgia GERD (gastroesophageal reflux disease) Dysmetabolic syndrome Diverticulosis Cervical disc herniation Anxiety Allergic rhinitis Bloating Epigastric pain Fracture of talus of left ankle, closed Left ankle strain Acute right flank pain Closed fracture of left proximal humerus History of cataract History of gastroesophageal reflux (GERD) Sacro-iliac pain Paroxysmal SVT (supraventricular tachycardia) Essential (primary) hypertension Depression Hypothyroidism Hyperlipidemia Home Medications Medication Instructions Recorded Last Taken Type citalopram 40 mg tablet 40 mg PO QHS depression 09/24/16 01/08/19 History 40 MG levothyroxine 50 mcg tablet 50 mcg PO DAILY thyroid 09/24/16 04/06/23 05:00 History pantoprazole 40 mg tablet,delayed 40 mg PO BID gerd 09/24/16 04/06/23 05:00 History release tizanidine 4 mg tablet 4 mg PO QHS muscle spasms 09/28/18 01/08/19 History 4 MG cholecalciferol (vitamin D3) 125 125 mcg PO DAILY 01/31/21 Unknown History mcg (5,000 unit) tablet meloxicam 15 mg tablet 15 mg PO DAILY 11/14/22 Unknown History bupropion HCl 150 mg tablet,12 hr 150 mg PO BID 04/01/23 Unknown History sustained-release fexofenadine 180 mg tablet 180 mg PO DAILY 01/06/24 Unknown History (Allergy Relief (fexofenadine)) acetaminophen 650 mg 650 mg PO Q12H PRN Pain 06/10/24 Unknown History tablet,extended release denosumab 60 mg/mL subcutaneous 60 mg subcut [id number] #1 mL 07/19/24 Unknown Rx syringe (Prolia) acetaminophen 300 mg-codeine 30 mg 1 tab PO BID PRN pain 02/02/25 Unknown History tablet alprazolam 0.5 mg tablet 0.5 mg PO BID PRN anxiety 02/02/25 Unknown History sucralfate 100 mg/mL oral 10 ml PO BID PRN upset stomach 02/02/25 Unknown History suspension (Carafate) Allergy/AdvReac Type Severity Reaction Status Date / Time latex Allergy COUGHING Verified 05/03/25 21:36 AND SORE THROAT Family History Father , Age 43 Hodgkins disease Sister Osteoporosis Mother Myocardial infarction Other Hypertension Surgical History History of bladder surgery History of stem cell transplant History of left oophorectomy History of radiofrequency ablation procedure for cardiac arrhythmia (08/07/21) History of lumbar laminectomy (09/2019) History of total left hip arthroplasty History of cataract extraction History of bunionectomy History of bladder suspension procedure History of appendectomy History of hysterectomy History of right oophorectomy Social History household members: spouse Smoking Status: Never smoker alcohol intake: current alcohol intake frequency: holidays/special occasions only Alcohol type: wine substance use type: does not use caffeine: Yes Type: coffee Number of servings: 2 what type of physical activity do you participate in: none ROS ROS ED Constitutional Constitutional ED: Denies chills or fever(s) Eyes Eyes: Denies change in vision ENT ENT ED: Denies sore throat Cardiovascular Cardiovascular: Reports chest pain; Denies palpitations or racing heartbeat Respiratory/Chest Respiratory/Chest: Denies cough or dyspnea Gastrointestinal Gastrointestinal: Reports abdominal pain; Denies diarrhea, nausea or vomiting Musculoskeletal Musculoskeletal: Denies back pain Integumentary Denies rash Neurologic Neurologic: Denies headache(s) Hematologic/Lymphatic Hematologic/Lymphatic: Denies easy bleeding or easy bruising Allergic/Immunologic Allergic/Immunologic ED: Denies mouth swelling or tongue swelling EXAM Physical Exam Const Vital Signs: 05/03/25 21:40 05/03/25 22:15 05/03/25 22:30 Temperature 98.3 F Temperature Source Temporal Pulse Rate 74 67 68 Respiratory Rate 16 17 16 Blood Pressure 174/86 H 133/55 H 139/68 H Blood Pressure Mean 115 78 87 Pulse Ox 96 96 96 Oxygen Delivery Method Room Air 05/03/25 23:00 05/04/25 00:18 Temperature 98.2 F Temperature Source Pulse Rate 61 61 Respiratory Rate 18 16 Blood Pressure 115/75 100/68 Blood Pressure Mean 88 78 Pulse Ox 96 94 Oxygen Delivery Method Positive well nourished and well developed General Appearance ED: well developed; Negative for pallor HEENT HEENT Narrative: Normocephalic atraumatic Eyes PERRL and EOMs intact bilaterally General Eye ED: Negative for scleral icterus Neck supple and no JVD Neck Narrative: No nuchal rigidity or meningeal signs noted Chest Wall Chest Narrative: No bony deformity or subcutaneous emphysema Resp normal respiratory effort and clear to auscultation bilaterally Cardio regular rate and regular rhythm Rate: other Other Details: No murmurs rubs or gallops Radial and carotid pulses are equal and symmetric GI non-distended and no masses GI Narrative: Abdomen is soft and nondistended with normal active bowel sounds. There is mild pain with palpation in the midepigastric region. No voluntary guarding or rigidity or pulsatile mass. No peritoneal signs Auscultation: normoactive bowel sounds Palpation: soft Extremity normal to inspection Extremity Narrative: No asymmetric edema no pitting edema negative Homans' sign bilaterally Neuro oriented x3, CN's II-XII intact bilaterally and no sensory deficits noted Sensorium / Orientation: alert Motor Exam: strength 5/5 throughout Psych mental status grossly normal Skin no rashes or lesions noted and no wounds General Skin Exam: Negative for jaundice or pallor MDM MDM MDM Narrative Medical decision making narrative: Patient arrived to the ER hypertensive otherwise with stable vitals. She reported a vague chest discomfort/burning sensation. She has a known hiatal hernia. Symptoms and history are most consistent with GERD/hiatal hernia pain but in order to rule out acute coronary syndrome versus lung pathology such as pneumonia or pneumothorax or potential cardiac dysrhythmia or pancreatitis basic blood work was obtained. EKG showed no signs of ischemia cardiac monitoring revealed no cardiac dysrhythmia and the initial troponin was 9 and the delta was 8 going against acute ACS. Lipase normal going against acute pancreatitis. Chest x-ray revealed a hiatal hernia consistent with history but otherwise no acute finding. After receiving a GI cocktail and Protonix she reported complete resolution of her symptoms. Therefore at this time with improvement of vitals resolution of symptoms and overall negative workup I do not feel there is need for further evaluation in the hospital and patient is otherwise safe for discharge History & Record Review Discussion w/independent historian: Patient and Significant other Lab Data Attestation: I reviewed the patient's lab results. Labs: Laboratory Results - last 24 hr 05/03/25 05/03/25 21:24 23:24 WBC 7.0 RBC 4.14 L Hgb 11.5 L Hct 36.6 L MCV 88.4 MCH 27.8 MCHC 31.4 L RDW Std Deviation 51.3 H RDW Coeff of Garret 15.8 H Plt Count 425 MPV 9.5 Immature Gran % (Auto) 0.400 Neut % (Auto) 52.6 Lymph % (Auto) 35.4 [place] % (Auto) 8.3 Eos % (Auto) 2.3 Baso % (Auto) 1.0 Absolute Neuts (auto) 3.7 Absolute Lymphs (auto) 2.47 Nucleated RBC % 0 Sodium 142 Potassium 3.9 Chloride 105 Carbon Dioxide 24.5 Anion Gap 12 BUN 9 Creatinine 0.93 Estim Creat Clear Calc 45.67 L Est GFR (MDRD) Non-Af 65 BUN/Creatinine Ratio 9.5 L Glucose 81 Calcium 9.3 Total Bilirubin 0.16 Direct Bilirubin < 0.08 AST 18 ALT 12 Alkaline Phosphatase 70 Troponin T High Sens 9 Troponin T Hi Sens 2 Hr 8 Total Protein 7.0 Albumin 4.4 Globulin 2.6 Lipase 39 Radiography Diagnostic Testing: Clinical Impression(s) from Imaging Studies Chest X-Ray 05/03/25 22:27 IMPRESSION: 1. No evidence of acute pulmonary disease. Mild cardiomegaly. 2. Redemonstrated moderate-large hiatal hernia, with mild left basilar atelectasis. 3. Severe thoracolumbar scoliosis. Reading Location: [id number] Chest x-ray as interpreted by the emergency medicine physician reveals a large hiatal hernia without acute infiltrate pneumothorax or pleural effusion Discharge Plan Triage Chief Complaint: Chest Pain ED Provider: Kevin Acosta Dx/Rx/DC Orders Clinical Impression: Hernia, hiatal, Nonspecific chest pain, Hyperlipidemia, GERD (gastroesophageal reflux disease), Hypothyroidism Instructions: ED Chest Pain, Uncertain Cause, ED Hiatal Hernia Prescriptions: No Action cholecalciferol (vitamin D3) 125 mcg (5,000 unit) tablet 125 mcg PO DAILY meloxicam 15 mg tablet 15 mg PO DAILY fexofenadine [Allergy Relief (fexofenadine)] 180 mg tablet 180 mg PO DAILY sucralfate [Carafate] 100 mg/mL suspension 10 ml PO BID PRN (Reason: upset stomach) acetaminophen-codeine 300-30 mg tablet 1 tab PO BID PRN (Reason: pain) alprazolam 0.5 mg tablet 0.5 mg PO BID PRN (Reason: anxiety) citalopram 40 MG tablet 40 mg PO QHS levothyroxine 50 MCG tablet 50 mcg PO DAILY pantoprazole 40 MG tablet 40 mg PO BID tizanidine 4 MG tablet 4 mg PO QHS acetaminophen 650 mg tablet extended release 650 mg PO Q12H PRN (Reason: Pain) bupropion HCl 150 mg tablet sustained-release 12 hr 150 mg PO BID Patient Comments: TAKE 1 TABLET BY MOUTH TWICE DAILY DIRECTED Prolia 60 mg/mL syringe 60 mg subcut [id number] Qty: 1 1RF Primary Care Provider: Carmel Goncalves Referrals: Carmel Goncalves MD [Primary Care Provider] - Activity Restrictions/Additional Instructions: Your workup today showed no signs of acute/active heart damage. Your history and exam indicates this is most likely due to your hiatal hernia. Please follow-up with your family doctor for repeat evaluation and to discuss outpatient stress testing or echo if symptoms persist and return to the ER should you have any further concerns. Print Language: Portuguese Disposition Disposition: Home, Self Care Discharge Date/Time: 05/04/25 00:19
[2025-05-04 00:18] VITALS: BP 100/68; PULSE 61; RESP 16; TEMP 36.8; O2SAT 94
== END 2025-05-04 00:19 | disposition home or self-care (01) ==
PROVIDERS: Emergency Provider Emergency Medicine; PCP Internal Medicine; Visit Provider Emergency Medicine
DX: K44.9 Diaphragmatic hernia without obstruction or gangrene (principal); I10 Essential (primary) hypertension; E03.9 Hypothyroidism, unspecified; K21.9 Gastro-esophageal reflux disease without esophagitis; E78.00 Pure hypercholesterolemia, unspecified; F32.A Depression, unspecified; Z79.890 Hormone replacement therapy; Z79.899 Other long term (current) drug therapy
CPT/HCPCS: 71046; 80048; 80076; 83690; 84484; 85025; 93005; 96365; 99285; A4216

== ENCOUNTER → 2025-05-10 | Outpatient (CLI) | payer MEDICARE, OTHER, SELFPAY ==
--- NOTE | 2025-05-10 13:30 | RAD_ITS ---
PROCEDURE: PELVIS 1 OR 2 VIEWS 05/10/2025 REASON FOR EXAM: FALL TECHNIQUE: PELVIS 1 OR 2 VIEWS COMPARISON: Prior study dated July 25, 2024. FINDINGS: Hardware: The patient is status post left total hip replacement. Bones: Prior vertebroplasty of the L2 and L3 vertebrae. Degenerative changes of the lumbar spine. Joints: Moderate degree of joint space narrowing of the right hip joint. soft tissues: Calcified phleboliths in the pelvis. Other: RAD/Pelvis 1 or 2 Views IMPRESSION: Status post left hip replacement with osteoarthritis of the right hip joint. Stable examination. Reading Location: [id number]
--- NOTE | 2025-05-10 13:30 | RAD_ITS ---
PROCEDURE: LUMBAR SPINE 2 OR 3 VIEWS 05/10/2025 REASON FOR EXAM: FALL TECHNIQUE: LUMBAR SPINE 2 OR 3 VIEWS COMPARISON: 08/18/2024 FINDINGS: Severe thoracic lumbar S shaped scoliosis. Severe facet arthritis, mainly L3 through S1. Status post kyphoplasty, L2, L3. Severe T12 compression deformity, this was present previously. Large hiatal hernia. No acute bone or soft tissue pathology. RAD/Lumbar Spine 2 or 3 Views IMPRESSION: Severe lumbar spine scoliosis. Degeneration. No definite acute bony injury. [facility]
--- NOTE | 2025-05-10 13:30 | RAD_ITS ---
PROCEDURE: PELVIS 1 OR 2 VIEWS 05/10/2025 REASON FOR EXAM: FALL TECHNIQUE: PELVIS 1 OR 2 VIEWS COMPARISON: Prior study dated July 25, 2024. FINDINGS: Hardware: The patient is status post left total hip replacement. Bones: Prior vertebroplasty of the L2 and L3 vertebrae. Degenerative changes of the lumbar spine. Joints: Moderate degree of joint space narrowing of the right hip joint. soft tissues: Calcified phleboliths in the pelvis. Other: RAD/Pelvis 1 or 2 Views IMPRESSION: Status post left hip replacement with osteoarthritis of the right hip joint. Stable examination. Reading Location: [id number]
--- NOTE | 2025-05-10 13:30 | RAD_ITS ---
PROCEDURE: SACRUM-COCCYX MIN 2 VIEWS 05/10/2025 REASON FOR EXAM: FALL TECHNIQUE: SACRUM-COCCYX MIN 2 VIEWS COMPARISON: None FINDINGS: Bones: Prior vertebroplasty of the L2 and L3 vertebrae. Multilevel disc space narrowing of the lumbar spine with the dextroscoliosis of the distal thoracic spine and levoscoliosis of the lumbar spine. Joints: Mild degree of the joint space narrowing of the sacroiliac joints bilaterally. Other: Status post left total hip replacement. RAD/Sacrum-Coccyx min 2 Views IMPRESSION: Degenerative changes of the sacroiliac joints. Prior left total hip replacement. Prior vertebroplasty of the L2 and L3 vertebrae with scoliosis of the dorsal an d lumbar spine. Reading Location: [facility]
--- NOTE | 2025-05-10 13:30 | RAD_ITS ---
PROCEDURE: LUMBAR SPINE 2 OR 3 VIEWS 05/10/2025 REASON FOR EXAM: FALL TECHNIQUE: LUMBAR SPINE 2 OR 3 VIEWS COMPARISON: 08/18/2024 FINDINGS: Severe thoracic lumbar S shaped scoliosis. Severe facet arthritis, mainly L3 through S1. Status post kyphoplasty, L2, L3. Severe T12 compression deformity, this was present previously. Large hiatal hernia. No acute bone or soft tissue pathology. RAD/Lumbar Spine 2 or 3 Views IMPRESSION: Severe lumbar spine scoliosis. Degeneration. No definite acute bony injury. Reading [facility]
--- NOTE | 2025-05-10 13:30 | RAD_ITS ---
PROCEDURE: SACRUM-COCCYX MIN 2 VIEWS 05/10/2025 REASON FOR EXAM: FALL TECHNIQUE: SACRUM-COCCYX MIN 2 VIEWS COMPARISON: None FINDINGS: Bones: Prior vertebroplasty of the L2 and L3 vertebrae. Multilevel disc space narrowing of the lumbar spine with the dextroscoliosis of the distal thoracic spine and levoscoliosis of the lumbar spine. Joints: Mild degree of the joint space narrowing of the sacroiliac joints bilaterally. Other: Status post left total hip replacement. RAD/Sacrum-Coccyx min 2 Views IMPRESSION: Degenerative changes of the sacroiliac joints. Prior left total hip replacement. Prior vertebroplasty of the L2 and L3 vertebrae with scoliosis of the dorsal an d lumbar spine. Reading Location: [facility]
== END | disposition home or self-care (01) ==
LOC: RAD 13:28
PROVIDERS: PCP Internal Medicine; Referring Provider Anesthesiology Pain Medicine; Visit Provider Anesthesiology Pain Medicine
DX: R10.2 Pelvic and perineal pain (principal); M54.50 Low back pain, unspecified; M53.3 Sacrococcygeal disorders, not elsewhere classified; W19.XXXA Unspecified fall, initial encounter
CPT/HCPCS: 72100; 72170; 72220

== ENCOUNTER 2025-09-04 12:12 | Emergency (ER) | payer MEDICARE, OTHER, SELFPAY ==
[2025-09-04 12:12] VITALS: BP 159/81; PULSE 82; RESP 16; TEMP 36.9; O2SAT 98; BMI 30.9
[2025-09-04 12:49] VITALS: BP 169/84; PULSE 71; RESP 14; O2SAT 96
[2025-09-04] MEDS: Orphenadrine 60 MG/2 ML Ampul 30 MG IM (13:51)
--- NOTE | 2025-09-04 15:25 | ED.VIS.BACK ---
HPI History of Present Illness Chief Complaint: Back Informant: patient Narrative Narrative: Patient is a 75-year-old female with a history of chronic back pain, osteoporosis, and prior spinal surgeries, presenting with worsening left-sided back pain radiating down the leg. - Reports lifelong back pain, with recent exacerbation over the past week. No new symptoms. - Attributes worsening pain to prolonged sitting in a dental chair for 2 hours, twisting for an AMADA, and twisting for a drive-through medication pickup. - Additional aggravation noted after shopping for [employer] and twisting to get out of the tub after an Epsom salt bath. - Pain primarily on the left side, with radiation down the left leg; right leg mostly unaffected except for the upper thigh. - Denies new symptoms, numbness, tingling, or perineal numbness. - No issues with bowel or bladder function. - Last epidural injection was approximately 3 months ago; receives injections every 3 months. - Unable to undergo surgery due to severe osteoporosis. - Underwent L4, L5-S1 discectomy and laminectomy in 2019. Has had kyphoplasty at T11 and T12. - Currently taking Tylenol with codeine #3, but only half doses recently due to 's absence; reports emesis with Percocet use in the past. [facility] Medical History Vitamin D deficiency History of Clostridium difficile infection Cancer Thyroid disease Osteoarthritis High cholesterol Injury of back History of hiatal hernia History of IBS Non-smoker Leg cramps History of echocardiogram History of stress test Cardiology follow-up encounter Medullary sponge kidney Internal hemorrhoids Fibromyalgia GERD (gastroesophageal reflux disease) Dysmetabolic syndrome Diverticulosis Cervical disc herniation Anxiety Allergic rhinitis Bloating Epigastric pain Fracture of talus of left ankle, closed Left ankle strain Acute right flank pain Closed fracture of left proximal humerus History of cataract History of gastroesophageal reflux (GERD) Sacro-iliac pain Paroxysmal SVT (supraventricular tachycardia) Essential (primary) hypertension Depression Hypothyroidism Hyperlipidemia Home Medications ?Medication ?Instructions ?Recorded ?Last Taken ?Type citalopram 40 mg tablet 40 mg PO QHS depression 09/24/16 01/08/19 History 40 MG levothyroxine 50 mcg tablet 50 mcg PO DAILY thyroid 09/24/16 04/06/23 05:00 History pantoprazole 40 mg tablet,delayed 40 mg PO BID gerd 09/24/16 04/06/23 05:00 History release tizanidine 4 mg tablet 4 mg PO QHS muscle spasms 09/28/18 01/08/19 History 4 MG cholecalciferol (vitamin D3) 125 125 mcg PO DAILY 01/31/21 Unknown History mcg (5,000 unit) tablet meloxicam 15 mg tablet 15 mg PO DAILY 11/14/22 Unknown History bupropion HCl 150 mg tablet,12 hr 150 mg PO BID 04/01/23 Unknown History sustained-release fexofenadine 180 mg tablet 180 mg PO DAILY 01/06/24 Unknown History (Allergy Relief (fexofenadine)) acetaminophen 650 mg 650 mg PO Q12H PRN Pain 06/10/24 Unknown History tablet,extended release denosumab 60 mg/mL subcutaneous 60 mg subcut [id number] #1 mL 07/19/24 Unknown Rx syringe (Prolia) acetaminophen 300 mg-codeine 30 mg 1 tab PO BID PRN pain 02/02/25 Unknown History tablet alprazolam 0.5 mg tablet 0.5 mg PO BID PRN anxiety 02/02/25 Unknown History sucralfate 100 mg/mL oral 10 ml PO BID PRN upset stomach 02/02/25 Unknown History suspension (Carafate) hydrocodone-acetaminophen 5-325mg 1 tab PO Q6H PRN PRN Pain 3 days 09/04/25 Unknown Rx 5mg-325mg #10 TABLETS Allergy/AdvReac Type Severity Reaction Status Date / Time latex Allergy COUGHING Verified 09/04/25 12:14 AND SORE THROAT Family History Father , Age 43 Hodgkins disease Sister Osteoporosis Mother Myocardial infarction Other Hypertension Surgical History History of bladder surgery History of stem cell transplant History of left oophorectomy History of radiofrequency ablation procedure for cardiac arrhythmia (08/07/21) History of lumbar laminectomy (09/2019) History of total left hip arthroplasty History of cataract extraction History of bunionectomy History of bladder suspension procedure History of appendectomy History of hysterectomy History of right oophorectomy Social History household members: spouse Smoking Status: Never smoker alcohol intake: current alcohol intake frequency: holidays/special occasions only Alcohol type: wine substance use type: does not use caffeine: Yes Type: coffee Number of servings: 2 what type of physical activity do you participate in: none ROS ROS ED Constitutional Constitutional ED: Denies chills or fever(s) Gastrointestinal Gastrointestinal: Denies abdominal pain, constipation, fecal incontinence, nausea or vomiting Genitourinary Genitourinary ED: Reports other Details: no urinary retention ; Denies abdominal discomfort or urinary incontinence Musculoskeletal Musculoskeletal: Reports as per HPI and back pain; Denies neck pain Integumentary Denies rash or wounds Neurologic Neurologic: Reports paresthesias LLE; Denies headache(s) or weakness EXAM Physical Exam Const Vital Signs: 09/04/25 12:12 09/04/25 12:49 Temperature 98.4 F Temperature Source Oral Pulse Rate 82 71 Respiratory Rate 16 14 Blood Pressure 159/81 H 169/84 H Blood Pressure Mean 107 112 Pulse Ox 98 96 Oxygen Delivery Method Room Air Room Air Positive well nourished and well developed General Appearance ED: well developed and NAD HEENT Negative for trauma or tenderness Eyes PERRL and EOMs intact bilaterally Neck full ROM and supple GI normal to inspection, nondistended, normoactive bowel sounds, soft to palpation and non-tender Back/Spine normal to inspection Back/Spine Narrative: Positive ipsilateral left lower extremity straight leg raise at about 45 degrees. Negative cross straight leg raise. Lumbar Spine / Lower Back: ROM limited and paraspinal muscle tenderness; Negative for lumbar spinal tenderness Extremity normal to inspection, full ROM and no pedal edema Neuro oriented x3 and no sensory deficits noted Sensorium / Orientation: alert Motor Exam: strength 5/5 throughout and clonus absent Deep Tendon Reflexes: Rt Patellar (L4): 2+, Lt Patellar (L4): 2+, Rt Ankle (S1): 2+ and Lt Ankle (S1): 2+ Deep Tendon Reflexes Back: Rt Patellar (L4): 2+, Lt Patellar (L4): 2+, Rt Ankle (S1): 2+ and Lt Ankle (S1): 2+ Plantar Reflex: Downgoing: bilateral Psych mental status grossly normal and thought process normal Skin no rashes or lesions noted and no wounds MDM MDM MDM Narrative Medical decision making narrative: This presentation is consistent with an acute exacerbation of chronic left-sided low back pain with left-sided sciatica. Straight leg raise testing is positive ipsilaterally and negative contralaterally. The patient has no signs or symptoms of cauda equina syndrome. I am comfortable with providing pain control, which she requires due to this exacerbation of a chronic condition. She will receive parenteral medications here for pain control and a prescription for [place] to use at home. 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 Discharge Plan Triage Chief Complaint: Back ED Provider: Chip Acosta Dx/Rx/DC Orders Clinical Impression: Back pain with left-sided sciatica, Acute exacerbation of chronic low back pain Instructions: ED Sciatica Prescriptions: New hydrocodone-acetaminophen 5-325 mg tablet 1 tab PO Q6H PRN PRN (Reason: Pain) 3 Days Qty: 10 0RF No Action cholecalciferol (vitamin D3) 125 mcg (5,000 unit) tablet 125 mcg PO DAILY meloxicam 15 mg tablet 15 mg PO DAILY fexofenadine [Allergy Relief (fexofenadine)] 180 mg tablet 180 mg PO DAILY sucralfate [Carafate] 100 mg/mL suspension 10 ml PO BID PRN (Reason: upset stomach) acetaminophen-codeine 300-30 mg tablet 1 tab PO BID PRN (Reason: pain) alprazolam 0.5 mg tablet 0.5 mg PO BID PRN (Reason: anxiety) citalopram 40 MG tablet 40 mg PO QHS levothyroxine 50 MCG tablet 50 mcg PO DAILY pantoprazole 40 MG tablet 40 mg PO BID tizanidine 4 MG tablet 4 mg PO QHS acetaminophen 650 mg tablet extended release 650 mg PO Q12H PRN (Reason: Pain) bupropion HCl 150 mg tablet sustained-release 12 hr 150 mg PO BID Patient Comments: TAKE 1 TABLET BY MOUTH TWICE DAILY DIRECTED Prolia 60 mg/mL syringe 60 mg subcut [id number] Qty: 1 1RF Primary Care Provider: Carmel Goncalves Referrals: Nathan Álvarez MD [Med Staff - Active Staff, Pain Management] - Keep [place] appointment Print Language: Turkmen Disposition Disposition: Home, Self Care
[2025-09-04 15:30] VITALS: BP 159/68; PULSE 73; RESP 16; O2SAT 96
[2025-09-04 15:31] VITALS: BP 159/38; PULSE 71; RESP 16; TEMP 36.6; O2SAT 95
== END 2025-09-04 15:47 | disposition home or self-care (01) ==
PROVIDERS: Emergency Provider Emergency Medicine; PCP Internal Medicine; Visit Provider Emergency Medicine
DX: M54.32 Sciatica, left side (principal); M54.50 Low back pain, unspecified; M81.0 Age-related osteoporosis without current pathological fracture; E78.00 Pure hypercholesterolemia, unspecified; I10 Essential (primary) hypertension; G89.29 Other chronic pain; R20.2 Paresthesia of skin
CPT/HCPCS: 96372; 99283